=== PATIENT | female | born 1965 | race Caucasian/White ===

== ENCOUNTER 2024-12-26 13:50 | Outpatient (CLI) | payer OTHER, SELFPAY | END 2024-12-26 13:51 | disposition home or self-care (01) | PROVIDERS: Visit Provider Physician Assistant Medical | DX: N20.0 Calculus of kidney (principal); Z87.442 Personal history of urinary calculi | CPT/HCPCS: 74018; 74176 ==

== ENCOUNTER 2025-03-07 12:38 | Outpatient (CLI) | payer OTHER, SELFPAY ==
--- NOTE | 2025-03-07 12:48 | ECG_ITS ---
Test Date: 2025-03-07 13:08:21 Measurements Intervals [place] Rate: 98 P: 46 WI: 183 QRS: 5 QRSD: 82 T: 0 QT: 330 QTc: 423 Interpretive Statements SINUS RHYTHM LOW QRS VOLTAGE IN PRECORDIAL LEADS [QRS DEFLECTION < 1.0 mV IN CHEST LEADS] No previous ECG available for comparison Electronically Signed On 03-07-2025 15:07:02 CDT by Matheus Diggs M.D.
--- OUTSIDE RECORDS SUMMARY | 2025-03-07 12:48 | XMS_ITS | Clinical Summary ---
Author Organization [facility] Address [address] [place] [address] Care Team Providers Care Theatrical Agent Name Role Phone [address] Primary Care Prov ider Source Comments [facility],non-owned Affiliates and Associated Physician Practices is amultiple site organization consisting of ambulatory clinics and hospital sitesin [place], [place] and [place]. This disclosure is being madepursuant to the Care Everywhere program and may not contain all information available regarding this patient. Last updated 18.[facility] Allergies No known active allergies Medications * Be aware that medications may not be up to date on this document. Alwaysverify current medications with the patient. propranolol (INDERAL) 80 MG tabletIndicatio ns:Hypertension Take 80 mg by mouth every 8 hours. Indications: High Blood Pressure Active modafinil (PROVIGIL) 200 MG tablet Take 200 mg by mouth 2 times daily. Active butalbital-acet aminophen-caffe ine (FIORICET) 50-325-40 MG tabletIndicatio ns:Migraine Take 1 Tab by mouth every 4 hours as needed. Indications: Migraine Headache Active hydrocodone-beulah taminophen (NORCO) 5-325 MG tablet Take 1-2 Tabs by mouth every 4 hours as needed. 40 Tab 0 09/02/2012 Active ibuprofen (MOTRIN) 600 MG tablet Take 1 Tab by mouth every 6 hours. 120 Tab 0 09/02/2012 Active ciprofloxacin (CIPRO) 250 MG tablet Take 1 Tab by mouth every 12 hours. 20 Tab 0 09/02/2012 Active docusate sodium (COLACE) 100 MG capsule Take 1 Cap by mouth 2 times daily. 60 Cap 0 09/02/2012 Active Immunizations Immunization Administration Dates Next Due PNEUMOCOCCAL PPSV23 09/02/2012 Family History Medical History Relation Name Comments Hypertension Mother Cancer Other [place] Other Relation Name Status Comments Mother Other Social History Tobacco Use Types Packs/Day Years Used Date Smoking Tobacco: Every Day Cigarettes 0.5 30 Tobacco Cessation:Ready to Q uit: No; Counseling Given: Yes Alcohol Use Standard Drinks/Week Comments Yes 0 (1 standard drink = 0.6 oz pur e alcohol) occ Comments No Sex and Gender Information Value Date Recorded Sex Assigned at Not on file Legal Sex Female 2:04 PM [facility] Gender Identity Not on file Sexual Orientation Not on file Last Filed Vital Signs Vital Sign Reading Time Taken Comments Blood Pressure 114/62 09/02/2012 12:56 PM [facility] Pulse 89 09/02/2012 12:56 PM [facility] Temperature 36.9 C (98.4 F) 09/02/2012 12:56 PM [facility]ER Respiratory Rate 20 09/02/2012 12:56 PM [facility] Oxygen Saturation 97% 09/02/2012 12:56 PM [facility] Inhaled Oxygen Concentration - - Weight 83.9 kg (185 lb) 09/01/2012 7:20 AM WRIST [facility]ER Height 170.2 cm (5' 7 ) 09/01/2012 7:20 AM [facility]RI[facility]ER Body Mass Index 28.98 09/01/2012 7:20 AM WRIST LINER Plan of Treatment Health Maintenance Due Date Last Done Comments COLOGUARD (AGES 45-75) - COL ON CA SCREENING 1965 COLON MONITORING 1965 COLONOSCOPY - COLON CA SCREENING 1964 CT COLONOGRAPHY - COLON CA SCREENING 1965 Colorectal Cancer Screening 1965 FIT - COLON CA SCREENING 1964 FLEX SIG - COLON CA SCREENING 1965 LIPID TESTING 1965 MAMMOGRAM 1965 HIV SCREENING 01/05/1979 HEPATITIS C SCREENING 01/01/1982 DTAP/TDAP/TD VACCINES (1 - Tdap) 01/05/1983 PNEUMOCOCCAL VACCINE 50+ (2 of 2 - PCV) 01/05/2014 09/02/2012 ZOSTER VACCINE (1 of 2) 01/05/2014 COVID-19 VACCINE ( - 2023-2 5 season) 2024 DEPRESSION SCREENING 10/26/2024 INFLUENZA VACCINE (Season Ended) 2025 Respiratory Syncytial Virus (RSV) Vaccine Pt: or over 60 yrs (1 - 1-dose 75+ series) 01/05/2039 HEPATITIS B VACCINE Aged Out No longe r eligible based on patient's age to complete this topic HIB VACCINE Aged Out No longer eligi ble based on patient's age to complete this topic HPV VACCINE Aged Out No longer eligi ble based on patient's age to complete this topic MENINGOCOCCAL (Group B) VACC INE SHARED DECISION-MAKING Aged Out No longer eligibl e based on patient's age to complete this topic MENINGOCOCCAL GROUPS A/C/Y/W VACCINE Aged Out No longer eligible b ased on patient's age to complete this topic Advance Directives * FULL RESUSCITATION (Latest Code Status on File) Date Activated Date Inactivated Comments 09/01/2012 11:54 AM 09/02/2012 3:01 PM * FULL RESUSCITATION Date Activated Date Inactivated Comments 09/01/2012 8:35 AM 09/01/2012 11:54 AM Care Teams Theatrical Agent Relationship Specialty Start Date End Date [facility] [address], [place] [address] PCP - General 09/27/19
--- OUTSIDE RECORDS SUMMARY | 2025-03-07 12:48 | XMS_ITS ---
Author Organization [facility] Address [address] [place], [place] [id number] Care Team Providers Care Scallop Raker Name Role Phone MAHOGANY AGGARWAL Unavailable [phone] Andres Sharmaine Unavailable Unavailable Allergies No Known Allergies REASON FOR VISIT The patient has stalled on her improvement with her left foot. The nightsplint is not helping Medications Medication SIG (Take, Route, Frequency, Duration) Notes Start Date End Date Status Modafinil Active Fluticasone Propionate Active Clobetasol Propionate Active Omeprazole Active Propranolol HCl Acti ve Atorvastatin Calcium Active One A Day Immunity Defense Active methylPREDNISolone 4 MG as directed Orally one pack 024 Active Aspirin Active Fish Oil Active Calcium Carb-Cholecalciferol Active Cholecalciferol Acti ve Vital Signs Weight 210 lbs 08/23/2024 Weight-kg 95.26 kg 08/23/2024 Height 67 in 08/23/2024 Height-cm 170.18 cm 08/23/2024 BMI 32.89 kg/m2 08/23/2024 Encounters Encounter Location Date Provider Diagnosis [facility] [address] [place], [place] [id number] 08/23/2024 MAHOGANY AGGARWAL Plantar fascial fibromatosis M72.2 ; Calcaneal spur, left foot M77.32 and Left foot pain M79.672 Assessments Encounter Date Diagnosis (ICD Code) Assessment Notes Treatment Notes Treatment Clinical Notes Section Notes 08/23/2024 Plantar fascial fibromatosis (ICD-10 - M72.2) Plantar Fascitis: I discussed anti-inflammato ry treatment options and various means of pronation control with the patient. I educated the patient on icing and stretching, supportive shoegear, and the use of orthotic devices. Continue PowerStep inserts (Patient already has). Consult: Physical Therapy, eval and treat for plantar fascitis 08/23/2024 Calcaneal spur, left foot (ICD-10 - M77.32) 08/23/2024 Left foot pain (ICD-10 - M79.672) Plan Of Treatment Treatment Notes Assessment Notes Plantar fascial fibromatosis Plantar Fascitis: I discussed anti-inflammatory treatment options and various means of pronation control with the patient. I educated the patient on icing and stretching, supportive shoegear, and the use of orthotic devices. Continue PowerStep inserts (Patient already has). Consult: Physical Therapy, eval and treat for plantar fascitis Next Appt Details Follow Up: prn, Reason: See how PT helped. If no improvement, consider EPF Progress Notes * NORMANFANTASMAA KDOB:1965 (60 yo F)Acc No.[id number]:08/23/2024 Patient: Judith RUIZ CHALINO Ashkan Provider: Gigi Aggarwal DPM :1965 A ge:59 Y S ex:Female Date:08/23/2024 Address:[facility] [address] [place] [address] Subjective: * Chief Complaints: * 1 . The patient has stalled on her improvement with her left foot. The nightsplint is not helping. * HPI: H [facility] spl[facility] and steroid follow up. Patient had gotten a different night splint online that she states is easier to sleep in and has helped a little. Patient states she saw no change with the oral steroid. Patient states Powerstep inserts have been helping a little as well. , MA: LB. * ROS: G eneral / Constitutional: Patient denies c hills, fever, weakness, night sweats. M usculoskeletal: Patient denies c hildhood foot problems, weakness. P eripheral Vascular: Patient denies u lceration of feet, cold extremities. S kin: Patient denies u lcerations, discoloration. N eurologic: Patient denies b alance difficulty, confusion, difficulty speaking, dizziness. * Medical History: A cait reflux, Kidney stones, Hepatitis, Hemorrhoids, Eczema, Psoriasis, Hypersomnolence, Urinary incontinence. * Family History: M other: PRN - Mother: :: Hypertension,,known absent . * Social History: M igrated Social History: M igrated Social History: History of tobacco use : Current everyday tobacco user , Smoking Status : Current everyday tobacco user. * Medications: T aking One A Day Immunity Defense , Taking Fish Oil , Taking Clobetasol Propionate , Taking Fluticasone Propionate , Taking Propranolol HCl , Taking Omeprazole , Taking Modafinil , Taking Calcium Carb-Cholecalciferol , Taking Cholecalciferol , Taking Atorvastatin Calcium , Taking Aspirin , Taking methylPREDNISolone 4 MG Tablet Therapy Pack as directed Orally , Notes to Pharmacist: one pack, Medication List reviewed and reconciled with the patient * Allergies: N .K.D.A. Objective: * Vitals: S hoe Size: 9, Wt:210lbs, Wt-k.26 kg, Ht: 67 in, Ht-cm: 170.18 cm, BMI:32.89Index, Body Surface Area: 2.12. * Examination: C onstitutional: Constitutional T he patient is awake, alert, well developed, well groomed and well nourished.. D ermatologic: Skin findings: S kin is warm, dry, supple with no breaks in the skin.. V ascular: Dorsalis pedis pulse: 2 /4, bilateral. Posterior tibial pulse: 2 /4, bilaterally. Capillary refill: l ess than 3 seconds. Edema: N o edema, bilateral. N eurologic: Gross sensation G ross sensation is intact to light touch.. M usculoskeletal: Muscle Strength M uscle strength is 5/5 in regards to dorsiflexion, plantarflexion, inversion, and eversion in bilateral lower extremities.. Pain on palpation m edial band of the left plantar fascia near its attachment to the calcaneus. Assessment: * Assessment: 1. P lantar fascial fibromatosis - M72.2 (Primary) 2 . C alcaneal spur, left foot - M77.32 3 . L eft foot pain - M79.672 Plan: * Treatment: * Immunizations: Immunization record has been reviewed and updated. * Follow Up: p rn (Reason: See how PT helped. If no improvement, consider EPF) * Billing Information: * Visit Code: 44711 Office Visit, Est Pt., Level 3. * Procedure Codes: * Sign off status: Completed true * Provider: Gigi Aggarwal DPM Date: Generated for Mahamed hercules/Johnny/Bright on: 0 03/07/2025 12:48 PM CDT History and Physical Notes * HPI (History of Present Illness) Category Sub-Category Detail Notes Category Not es HPI Follow Up Visit Patient presents for follow-up visit for night splint and steroid follow up. Patient had gotten a different night splint online that she states is easier to sleep in and has helped a little. Patient states she saw no change with the oral steroid. Patient states Powerstep inserts have been helping a little as well. , MA: LB Examination Category Sub-Category Detail Notes Category Not es Dermatologic Skin findings: Skin is warm, dr y, supple with no breaks in the skin. Neurologic Gross sensation Gross sensation is intact to light touch. Vascular Dorsalis pedis pulse: 2/4, bilateral Edema: No edema, bilateral Capillary refill: less than 3 seconds Posterior tibial pulse: 2/4, bilaterally Musculoskeletal Muscle Strength Muscle strength is 5/5 in regards to dorsiflexion, plantarflexion, inversion, and eversion in bilateral lower extremities. Pain on palpation medial band of the l eft plantar fascia near its attachment to the calcaneus Constitutional Constitutional The patient is a wake, alert, well developed, well groomed and well nourished.
--- OUTSIDE RECORDS SUMMARY | 2025-03-07 12:48 | XMS_ITS | Clinical Summary ---
Author Organization [address] Address [address] [place] [id number] Care Team Providers Care Reservation Agent Name Role Phone Radha Fermin Primary Care Provider [phone] Allergies No known active allergies Medications aspirin 81 mg enteric coated tablet 1 Active atorvastatin (LIPITOR) 10 mg tablet 10 mg 7 Active Calcium 600 600 mg calcium (1,500 mg) tablet 1 Active cholecalciferol (VITAMIN D-3) 2000 unit tablet 1 Active clobetasoL (TEMOVATE) 0.05 % ointment 1 Active docosahexaenoic acid-epa 120-180 mg capsule Take 100 mg by mouth daily Active fluticasone propionate (FLONASE) 50 mcg/actuation nasal spray Daily 3 Active omeprazole (PriLOSEC) 20 mg capsule 1 Active propranolol LA (INDERAL LA) 80 mg 24 hr capsule 1 Active atorvastatin (LIPITOR) 20 mg tablet 2 Active benzonatate (TESSALON) 100 mg capsuleIndicatio ns:Cough Take 1 capsule (100 mg total) by mouth every 8 (eight) hours 21 capsule 2 Active Additional Information Patient not taking.Reported on 06/04/2023 lisinopriL (PRINIVIL,ZESTRI L) 10 mg tablet 3 Active modafiniL (PROVIGIL) 200 mg tabletIndication s:Idiopathic hypersomnia Take 2 tablets (400 mg total) by mouth every morning 60 tablet 5 5 Active Active Problems Problem Noted Date Diagnosed Date Idiopathic hypersomnia 05/27/2021 Assessment & Plan (06/09/2024 3:48 PM CDT): Due to continued symptoms, the patient will continue Provigil 400 mg in the morning. I have refilled the medication and will refill for 1 year Assessment & Plan (06/04/2023 3:39 PM CDT): The patient will continue with Provigil 400 mg daily. The patient states his medication works well. Assessment & Plan (05/29/2022 3:52 PM CDT): The patient will continue with Provigil 400 mg daily. The patient states his medication works well. I have reordered the medication and will refill it for up to 1 year. Assessment & Plan (05/27/2021 3:56 PM CDT): The patient continues to function well with Provigil 400 mg p.o. q.a.m.. She will follow-up here annually. Medical History Medical History Date Comments GERD (gastroesophageal reflux disease) Hypersomnia Social History Tobacco Use Types Packs/Day Years Used Date Smoking Tobacco: Every Day Cigarettes Smokeless Tobacco: Never Personal Safety Answer Date Recorded Getting School Help Needed Not on file 10/14 Comments No Sex and Gender Information Value Date Recorded Sex Assigned at Not on file Legal Sex Female 8:04 PM COLDFUSION Gender Identity Not on file Sexual Orientation Not on file Obstetrics History Last Filed Vital Signs Vital Sign Reading Time Taken Comments Blood Pressure 142/80 06/09/2024 3:35 PM CDT Pulse 106 06/09/2024 3:35 PM CDT Temperature 36.2 C (97.1 F) 06/09/2024 3:35 PM CDT Respiratory Rate 18 06/09/2024 3:35 PM CDT Oxygen Saturation 96% 06/09/2024 3:35 PM CDT Inhaled Oxygen Concentration - - Weight 92.1 kg (203 lb) 06/09/2024 3:35 PM CDT Height 170.2 cm (5' 7 ) 06/09/2024 3:35 PM CDT Body Mass Index 31.79 06/09/2024 3:35 PM CDT Plan of Treatment Health Maintenance Due Date Last Done Comments Cervical Cancer Screening 1965 Colon Cancer Screening-Colonoscopy 1965 Depression Screening 1965 Hepatitis C Screening 1965 Hepatitis B Screening 01/05/1982 Regular Well Visit/Exam 18-64 01/05/1982 Pneumococcal vaccine <65 (2 of 2 - PCV) 09/02/2013 09/02/2012 Breast Cancer Screening-Mammogram 11/07/2020 020, 11/07/2019 Covid-19 Vaccine (2023- 5 season) 2024 11/13/2021, 02/07/2021, 01/10/2021 Influenza Vaccine (Season Ended) 2025 10/04/2019, 08/24/2018, 07/30/2012, Additional history exists DTaP/Tdap/Td Vaccine (3 - Td or Tdap) 10/04/2029 10/04/2019, 02/16/2007, 01/26/1997 Zoster Vaccine Completed 05/30/2021, 03/29/2021 Procedures Procedure Name Priority Date/Time Associated Diagnosis Comments SCREENING MAMMOGRAM BILATERAL W THEO 11/07/2019 3:26 PM COLDFUSION from Last 3 Months or Most Recently Relevant to Health Maintenance Results * Screening Mammogram Bilateral W Theo (11/07/2019 3:26 PM COLDFUSION) Anatomical Region Laterality Modality Breast Bilateral Mammography 11/07/2019 3:49 PM COLDFUSION Narrative 11/11/2019 8:09 AM COLDFUSION Patient Name: CHALINO AUSTIN Dr: Yanique Walker CNP, D.O.B: 1965 Exam Date: 11/07/19 1526 Age: 54 Sex: Female MR#: [id number] Loc: RADIOLOGY REPORT Order #[id number] [facility] Marisol Bilat Screening 3D Signed - MG BILATERAL DIGITAL SCREENING MAMMOGRAM 3D/2D WITH MEDIOLATERAL OBLIQUE CRANIOCAUDAL: 11/07/2019 The study was acquired using full field digital technology and interpreted from soft copy. 2D digital mammographic views, as well as 3D digital tomosynthesis were performed in the CC and MLO projections. CLINICAL: Routine mammogram. Denies any problems today. No personal history of breast cancer. No family history of breast cancer. COMPARISONS: Comparison is made to exam dated: 02/16/2018 mammogram - [facility]. BREAST TISSUE: There are scattered areas of fibroglandular density. FINDINGS: There are benign appearing masses in the right breast. No significant masses, calcifications, or other findings are seen in either breast. There has been no significant interval change. IMPRESSION: BI-RAD 2 BENIGN There is no mammographic evidence of malignancy. A 1 year screening mammogram is recommended. The patient has been or will be contacted. We recommend annual screening mammography for women at average risk of breast cancer beginning at age 40, based on guidelines of the [employer] (ACR Practice Parameter for the Performance of Screening and Diagnostic Mammography) and [employer]nec[employer]. For women with an elevated risk of breast cancer, please refer to the ACR Practice Parameter for specific screening recommendations. The patient will be entered into a reminder system with a target due date of 1 year for her next screening exam. Electronically signed by: Julian Hastings rl/ebonie:11/11/2019 08:09:38 Horticulture Worker: Crys Sanchez (R)), [facility] letter sent: Normal Exam Reading location: BI-RADS: 2 Benign REPORT ELECTRONICALLY SIGNED IN OTHER VENDOR SYSTEM Resulting Agency Comment O Procedure Note Julian Toro MD - 11/11/2019 Patient Name: NORMANCHALINO Dr: Yanique Walker CNP, D.O.B: 1965 Exam Date: 11/07/19 1526 Age: 54 Sex: Female MR#: [id number] Loc: RADIOLOGY REPORT Order #[id number] [facility] Marisol Bilat Screening 3D Signed - MG BILATERAL DIGITAL SCREENING MAMMOGRAM 3D/2D WITH MEDIOLATERAL OBLIQUE CRANIOCAUDAL: 11/07/2019 The study was acquired using full field digital technology andinterpreted from soft copy. 2D digital mammographic views, as well as 3D digital tomosynthesis were performed in the CC and MLO projections. CLINICAL: Routine mammogram. Denies any problems today. No personalhistory of breast cancer. No family history of breast cancer. COMPARISONS: Comparison is made to exam dated: 02/16/2018 mammogram -[facility]. BREAST TISSUE: There are scattered areas of fibroglandular density. FINDINGS: There are benign appearing masses in the right breast. No significant masses, calcifications, or other findings are seen ineither breast. There has been no significant interval change. IMPRESSION: BI-RAD 2 BENIGN There is no mammographic evidence of malignancy. A 1 year screeningmammogram is recommended. The patient has been or will be contacted. We recommend annual screening mammography for women at average risk ofbreast cancer beginning at age 40, based on guidelines of the [employer] (ACR Practice Parameter for the Performance of Screening and Diagnostic Mammography) and [employer] Gynec[employer]. For women with an elevated risk of breast cancer, pleaserefer to the ACR Practice Parameter for specific screening recommendations. The patient will be entered into a reminder system with a target due dateof 1 year for her next screening exam. Electronically signed by: Julian Hastings rl/ebonie:11/11/2019 08:09:38 Horticulture Worker: Crys Kumar)(Krzysztof), [facility] letter sent: Normal Exam Reading location: BI-RADS: 2 Benign REPORT ELECTRONICALLY SIGNED IN OTHER VENDOR SYSTEM Yanique Walker NP IMG MAMMO PROCEDURES Final Result from Last 3 Months or Most Recently Relevant to Health Maintenance Insurance [facility] Care Teams Reservation Agent Relationship Specialty Start Date End Date Radha Fermin PA [address] [place], [place] [id number] PCP - General Physician Gantry Crane Operator 05/27/21
--- OUTSIDE RECORDS SUMMARY | 2025-03-07 12:48 | XMS_ITS | Encounter Summary ---
Author Organization [facility] Address [address] [place] [id number] Care Team Providers Care Senior Chemist Name Role Phone Radha Callaway Primary Care Provider [phone] None, Provider Primary Care Provider Harley Trhasher MD Primary Care Provider [phone] Encounter Details Date Type Department Care Team (Late st Contact Info) Description 11/15/2020 Prep for Procedure [employer] Pre-Admission Testing [facility] [place], [place] [id number] Giselle Maddox MD [address] [place] [address] [place] [phone] Social History Tobacco Use Types Packs/Day Years Used Date Smoking Tobacco: Every Day Cigarettes 0.5 40 Smokeless Tobacco: Never Alcohol Use Standard Drinks/Week Comments Not Currently 0 (1 standard drink = 0.6 oz pur e alcohol) 3 times year Comments No Sex and Gender Information Value Date Recorded Sex Assigned at Female 11/09/2024 10:20 AM NEUROLOGY TECHNICIAN Legal Sex Female 4:33 PM CDT Gender Identity Not on file Sexual Orientation Not on file COVID-19 Exposure Response Date Recorded In the last month, have you been in contact with someone who was confirmed or suspected to have Coronavirus / COVID-19? No / Unsure 11/15/2020 3:07 PM NEUROLOGY TECHNICIAN documented as of this encounter Plan of Treatment Not on file documented as of this encounter Results * PRE-SURGICAL/PRE-PROCEDURE CORONAVIRUS (COVID 19) (11/23/2020 10:30 AM NEUROLOGY TECHNICIAN) CORONAVIRUS SARS COV 2 PCR (RESP) NOT DETECTED NOT DETECTED 11/24/2020 4:31 PM NEUROLOGY TECHNICIAN [facility] Comment: A Not Detected (negative) test result for this test means that SARS- CoV-2 RNA was not present in the specimen above the limit of detection. A negative result does not rule out the possibility of COVID-19 and should not be used as the sole basis for treatment or patient management decisions. If COVID-19 is still suspected, based on exposure history together with other clinical findings, re-testing should be considered in consultation with public health authorities. Laboratory test results should always be considered in the context of clinical observations and epidemiological data in making a final diagnosis and patient management decisions. Please review the Fact Sheets and FDA authorized labeling available for health care providers and patients using the following websites: https://www.[employer]/home/Covid-19/HCP/NAAT/fact-sheet2 https://www.[employer]/home/Covid-19/Patients/NAAT/ fact-sheet2 This test has been authorized by the FDA under an Emergency Use Authorization (EUA) for use by authorized laboratories. Due to the current public health emergency, [facility] is receiving a high volume of samples from a wide variety of swabs and media for COVID-19 testing. In order to serve patients during this public health crisis, samples from appropriate clinical sources are being tested. Negative test results derived from specimens received in non-commercially manufactured viral collection and transport media, or in media and sample collection kits not yet authorized by FDA for COVID-19 testing should be cautiously evaluated and the patient potentially subjected to extra precautions such as additional clinical monitoring, including collection of an additional specimen. Methodology: Nucleic Acid Amplification Test (NAAT) includes RT-PCR or TMA Additional information about COVID-19 can be found at the [facility] website: www.[employer]/Covid19. Test performed at [facility] [place] [address] [place] [address] Director: RHYS GARCIA DO,MPH FIRST TEST NO 11/23/2020 12:43 PM NEUROLOGY TECHNICIAN [facility] EMPLOYED IN HEALTHCARE NO 11/23/2020 12:43 PM NEUROLOGY TECHNICIAN [facility] SYMPTOMATIC DEFINED BY CDC NO 11/23/2020 12:43 PM NEUROLOGY TECHNICIAN [facility] DATE OF SYMPTOM ONSET UNKNOWN 11/23/2020 1:15 PM NEUROLOGY TECHNICIAN [facility] HOSPITALIZATION STATUS NO 11/23/2020 12:43 PM NEUROLOGY TECHNICIAN [facility] PATIENT IN ICU NO 11/23/2020 12:43 PM NEUROLOGY TECHNICIAN [facility] RESIDENT OF [facility] NO 11/23/2020 12:43 PM NEUROLOGY TECHNICIAN [facility] NOT 11/23/2020 12:43 PM NEUROLOGY TECHNICIAN [facility] PATIENT'S RACE WHITE OR 11/23/2020 12:43 PM NEUROLOGY TECHNICIAN [facility] ETHNICITY NONHISPANIC 11/23/2020 12:43 PM NEUROLOGY TECHNICIAN [facility] SOURCE (QST) NASOPHARYNGEAL SWAB 11/23/2020 12:43 PM NEUROLOGY TECHNICIAN [facility] NASOPHARYNGEAL SWAB / Unknown 11/23/2020 10:30 AM NEUROLOGY TECHNICIAN us Giselle Maddox MD MICROBIOLOGY - GENERAL ORDERABLE S Final Result [facility] [address] [place] [address], [facility] [address] [place] [address], documented in this encounter Visit Diagnoses Diagnosis Preop examination- Primary Preoperative examination, unspecified documented in this encounter Additional Health Concerns Infection Onset Date Last Indicated Resolved Time COVID-19 Rule Out 11/23/2020 11/23/2020 11/24/2020 4:31 PM NEUROLOGY TECHNICIAN COVID-19 Rule Out 07/09/2021 07/09/2021 07/10/2021 11:47 AM CDT COVID-19 Rule Out 05/27/2023 05/27/2023 05/28/2023 7:24 AM CDT COVID-19 Rule Out 11/24/2023 11/24/2023 11/24/2023 6:55 PM NEUROLOGY TECHNICIAN COVID-19 Rule Out 01/17/2024 01/17/2024 01/17/2024 4:46 PM CDT COVID-19 Rule Out 02/16/2024 02/16/2024 02/16/2024 3:01 PM CDT COVID-19 Rule Out 11/09/2024 11/09/2024 11/09/2024 11:14 AM NEUROLOGY TECHNICIAN documented as of this encounter Care Teams Senior Chemist Relationship Specialty Start Date End Date Radha Callaway PA [facility] [address] [place] [address] PCP - General PHYSICIAN PEDIATRICIAN ACTIVE PRACTICE 11/15/20 05/26/23 None, ProviderMD PCP - General UNKNOWN PHYSICIAN SPECIALTY 05/27/23 02/15/24 Harley Campos MD [address] [phone] PCP - General FAMILY PRACTICE 02/16/24 documented as of this encounter
--- OUTSIDE RECORDS SUMMARY | 2025-03-07 12:48 | XMS_ITS | Encounter Summary ---
Author Organization [facility] Address [address] [place] [id number] Care Team Providers Care Bobbin Loose End Finder Name Role Phone Harley Campos MD Primary Care Provider [phone] Reason for Visit * Reason Comments Skin Problem Encounter Details Date Type Department Care Team (Late st Contact Info) Description 03/07/2025 4:56 AM CDT - 03/07/2025 7:[address] [facility] [place] [address] Laurel Schroeder MD [address] [place] [address] Rodri Beltran MD [address] [place] [address] Skin Problem Discharge Disposition: Home or Self Care (Routine Discharge) Social History Tobacco Use Types Packs/Day Years Used Date Smoking Tobacco: Every Day Cigarettes 0.5 40 Passive Smoke Exposure: Past Smokeless Tobacco: Never Alcohol Use Standard Drinks/Week Comments Yes 0 (1 standard drink = 0.6 oz pur e alcohol) 3 times year Comments No Sex and Gender Information Value Date Recorded Sex Assigned at Female 11/09/2024 10:20 AM [employer]TAIN [employer] Legal Sex Female 4:33 PM CDT Gender Identity Not on file Sexual Orientation Not on file documented as of this encounter Last Filed Vital Signs Vital Sign Reading Time Taken Comments Blood Pressure 140/82 03/07/2025 7:21 AM CDT Pulse 81 03/07/2025 7:21 AM CDT Temperature 36.4 C (97.6 F) 03/07/2025 4:53 AM CDT Respiratory Rate 16 03/07/2025 7:21 AM CDT Oxygen Saturation 97% 03/07/2025 7:21 AM CDT Inhaled Oxygen Concentration - - Weight 95 kg (209 lb 7 oz) 03/07/2025 4:53 AM CD T Height 170.2 cm (5' 7 ) 03/07/2025 4:53 AM CDT Body Mass Index 32.8 03/07/2025 4:53 AM CDT documented in this encounter Functional Status * Calculated C-SSRS Risk Score (Lifetime/Recent) Answer Date of Assessment Author Status No Risk Indicated 03/07/2025 4:54 AM CDT Lul Greco RN Active * [place] Suicide Severity Rating Scale (Screener/Recent Self-Report) Question Answer Date of Assessment Author Status 1. Wish to be (Past 1 Month) No 03/07/2025 4:54 AM CDT Lul Greco RN Active 2. Non-Specific Active Suicidal Thoughts (Past 1 Month) No 03/07/2025 4:54 AM CDT Lul Greco RN Active 6. Suicidal Behavior (Lifetime) No 03/07/2025 4:54 AM CDT Lul Greco RN Activ e documented as of this encounter Discharge Instructions * Discharge Instructions* Rodri Beltran MD - 03/07/2025 7:00 AM CDT Continue all present medication as prescribed. Take prednisone Pepcid/famotidine as prescribed. Continue Zyrtec as prescribed. Do not take Macrobid/nitrofurantoin you have allergic reaction to it. Fluids. Diet and activity as tolerated. Follow-up with your primary care provider at [place] in next 3 to 5 days. Call their office today for appointment. Return to Emergency Department forany problems or concerns. documented in this encounter Medications at Time of Discharge famotidine (PEPCID) 40 MG tablet Take 1 tablet (40 mg total) by mouth daily for 15 days. 15 tablet 03/07/2025 predniSONE (DELTASONE) 20 MG tablet Take 2 tablets a day by mouth for 5 days then take 1 tab a day by mouth for 5 days 15 tablet 03/07/2025 aspirin EC (ECOTRIN) 81 MG tablet Take 1 tablet (81 mg total) by mouth daily. atorvastatin 20 MG tablet Take 1 tablet (20 mg total) by mouth daily. cetirizine (ZYRTEC) 10 MG tablet Take 1 tablet (10 mg total) by mouth daily. 30 tablet 03/01/2025 clobetasol 0.05 % Cream Apply 1 each topically 2 (two) times daily. estradiol (ESTRACE) 0.1 MG/GM vaginal cream Place 1 g vaginally. 02/06/2025 fish oil 1000 MG Cap capsule Take 100 mg by mouth daily. fluticasone furoate 27.5 MCG/SPRAY Suspension 1 spray by Each Nostril route. GEMTESA 75 MG tablet Take 1 tablet (75 mg total) by mouth daily. 08/04/2024 modafinil 200 MG tablet Take 1 tablet (200 mg total) by mouth daily. 08/02/2020 omeprazole (PRILOSEC) 20 MG capsule 03/19/2023 propranolol LA 80 MG 24 hr capsule Take 1 capsule (80 mg total) by mouth daily. trimethoprim (TRIMPEX) 100 MG tablet Take 1 tablet (100 mg total) by mouth. 08/08/2024 vitamin D3, cholecalciferol, 10 MCG (400 UNIT) tablet Take 1 tablet (400 Units total) by mouth daily. 2 tabs daily documented as of this encounter ED Notes * Rodri Beltran MD - 03/07/2025 7:00 AM CDT [facility] Emergency Department Assumed Care Note Patient signed out to me by Dr Schroeder. Briefly, Patricia Garcia is a 60-year-old female is being evaluated for rash likely secondary to Macrobid which she finished yesterday Vitals: 03/07/25 0453 BP: (!) 144/102 Pulse: 82 Resp: 18 Temp: 97.6 Â°F (36.4 Â°C) SpO2: 97% Thus far, studies reveal: No laboratory work obtained Pending studies include: No pending studies Plan from sign out is: Reevaluate disposition Progress notes: I personally saw examined this patient. Agree with Dr. Schroeder's assessment and plan. Patient is resting on stretcher no acute distress. Patient states rash is improved. She recently completed Macrobid for UTI. She noted a rash and swelling to her hands and arms and trunk.. She was given IV medications Emergency Department and feels better. Patient has no shortness of breath no wheezing no fevers no chills no respiratory distress ED Course as of 03/07/25 07ThuMarch 07, 2025 07 Patient initially had [facility]. She requested prescription to be sent to [facility] therefore electronic prescriptions were changed from [facility] to [facility]. [CA] ED Course User Index [CA] Rodri Beltran MD Clinical impression: SNOMED CT(R) 1. Rash ERUPTION Medical Decision Making Problems Addressed: Rash: acute illness or injury Details: IV Solu-Medrol. Prescriptions for Pepcid prednisone Amount and/or Complexity of Data Reviewed Labs: ordered. Risk OTC drugs. Prescription drug management. Parenteral controlled substances. Disposition: Discharge Voice-recognition software used. Rodri Beltran MD 03/07/2025 Rodri Beltran MD 03/07/25 07 * Skye Gonsalez RN - 03/07/2025 6:20 AM CDT Patient states she is feeling better and less itchy. Her arms also seem to be slightly less red. * Skylar Montero RN - 03/07/2025 4:56 AM CDT Bed: H35 Expected date: Expected time: Means of arrival: Comments: Jose * Lul Greco RN - 03/07/2025 4:51 AM CDT To ER c/o bright red rash that started this am after waking up, states she was in urgent care Thursday and started taking macrobid for a uti and zrytec, denies sob and wheezing at this time. Pt reports having a kidney stone as well. documented in this encounter Plan of Treatment Not on file documented as of this encounter Procedures Procedure Name Priority Date/Time Associated Diagnosis Comments COMPREHENSIVE METABOLIC PANEL STAT 03/07/2025 5:20 AM CDT CBC W/DIFF AUTOMATED STAT 03/07/2025 5:20 AM CDT documented in this encounter Results * (ABNORMAL) COMPREHENSIVE METABOLIC PANEL (03/07/2025 5:20 AM CDT) GLUCOSE 110(H) 70 - 99 MG/DL 03/07/2025 6:13 AM CDT [facility] BUN 19(H) 7 - 18 MG/DL 03/07/2025 6:13 AM CDT [facility] CREATININE S/P/B 0.62 0.55 - 1.02 MG/DL 03/07/2025 6:13 AM CDT [facility] SODIUM S/P/B 138 136 - 145 MMOL/L 03/07/2025 6:13 AM CDT [facility] POTASSIUM S/P/B 3.8 3.5 - 5.1 MMOL/L 03/07/2025 6:13 AM CDT [facility] CHLORIDE S/P/B 110 97 - 115 MMOL/L 03/07/2025 6:13 AM CDT [facility] CO2 21.4 21 - 32 MMOL/L 03/07/2025 6:13 AM CDT [facility] CALCIUM S/P/B 9.9 8.5 - 10.1 MG/DL 03/07/2025 6:13 AM [facility] BILIRUBIN TOTAL S/P/B 0.4 0.2 - 1.2 MG/DL 03/07/2025 6:13 AM [facility] Comment: THIS ASSAY IS NOT RECOMMENDED FOR PATIENTS UNDERGOING TREATMENT WITH ELTROMBOPAG DUE TO THE POTENTIAL FOR FALSELY ELEVATED RESULTS. TOTAL PROTEIN S/P/B 7.5 6.4 - 8.2 G/DL 03/07/2025 6:13 AM [facility] ALBUMIN S/P/B 3.6 3.4 - 5.0 G/DL 03/07/2025 6:13 AM [facility] AST 26 15 - 37 U/L 03/07/2025 6:13 AM [facility] ALT 39 14 - 55 U/L 03/07/2025 6:13 AM [facility] ALKALINE PHOSPHATASE S/P/B 95 50 - 136 U/L 03/07/2025 6:13 AM [facility] ANION GAP 6.6 2 - 10 MMOL/L 03/07/2025 6:13 AM [facility] BUN CREATININE RATIO 30.8(H) 6 - 26 03/07/2025 6:13 AM [facility] A/G RATIO 0.9(L) 1.0 - 2.0 RATIO 03/07/2025 6:13 AM [facility] GFR ESTIMATE >90 >90 ML/MIN/1.7 3 M2 03/07/2025 6:13 AM [facility] Comment: NOTE: eGFR is not calculated for patients <18 years of age or gender unknown. This is an estimated GFR calculation using the new CKD EPI creatinine equation without race and so does not require a correction factor for race. This estimated GFR should not be used for calculating drug doses. 03/07/2025 5:20 AM CDT us Laurel Schroeder MD LABORATORY Final Resul t [facility] [address] [place] [address], [place] [phone] * (ABNORMAL) CBC W/DIFF AUTOMATED (03/07/2025 5:20 AM CDT) WBC 5.55 4.5 - 11.0 x10'3/uL 03/07/2025 5:52 AM CDT [facility] RBC 5.10 4.20 - 5.40 x10'6/uL 03/07/2025 5:52 AM CDT [facility] HGB 15.1 12.0 - 16.0 G/DL 03/07/2025 5:52 AM CDT [facility] HCT 46.3 38.0 - 48.0 % 03/07/2025 5:52 AM CDT [facility] MCV 90.8 81.0 - 99.0 FL 03/07/2025 5:52 AM CDT [facility] MCH 29.6 27.0 - 31.0 PG 03/07/2025 5:52 AM CDT [facility] MCHC 32.6 32.0 - 36.0 G/DL 03/07/2025 5:52 AM CDT [facility] RDW 13.0 11.5 - 14.5 % 03/07/2025 5:52 AM CDT [facility] PLT 233 130 - 400 x10'3/uL 03/07/2025 5:52 AM CDT [facility] MPV 11.1 9.3 - 12.2 FL 03/07/2025 5:52 AM CDT [facility] DIFFERENTIAL TYPE AUTOMATED DIFFERENTIAL 03/07/2025 5:52 AM CDT [facility] NEUTROPHILS % 63.2 % 03/07/2025 5:52 AM CDT [facility] LYMPHOCYTES % 31.7 % 03/07/2025 5:52 AM CDT [facility] MONOCYTES % 3.6 % 03/07/2025 5:52 AM CDT [facility] EOSINOPHILS 0.9 % 03/07/2025 5:52 AM CDT [facility] BASOPHILS 0.2 % 03/07/2025 5:52 AM CDT [facility] IMMATURE GRANS % 0.4 % 03/07/20 5:52 AM CDT [facility] ABS. NEUTROPHILS 3.51 1.80 - 7.70 x10'3/uL 03/07/2025 5:52 AM CDT [facility] ABS. LYMPHOCYTES 1.76 1.00 - 4.80 x10'3/uL 03/07/2025 5:52 AM CDT [facility] ABS. MONOCYTES 0.20(L) 0.24 - 0.86 x10'3/uL 03/07/2025 5:52 AM CDT [facility] ABS. EOSINOPHILS 0.05 0.04 - 0.36 x10'3/uL 03/07/2025 5:52 AM CDT [facility] ABS. BASOPHILS 0.01 0.01 - 0.08 x10'3/uL 03/07/2025 5:52 AM T [facility] ABS. IMMATURE GRANULOCYTES 0.02 0.00 - 0.49 x10'3/uL 03/07/2025 5:52 AM T [facility] 03/07/2025 5:20 AM CDT Laurel Schroeder MD LABORATORY Final Resul t [facility] [address] [place] [address], [place] [phone] documented in this encounter Visit Diagnoses Diagnosis Rash- Primary Rash and other nonspecific skin eruption documented in this encounter Administered Medications Inactive Administered Medications - up to 3 most recent administrations Medication Order MAR Action Action Date Dose Rate Site dexamethasone PF (DECADRON) injection 10 mg 10 mg, Intravenous, Once, 1 dose, On Thu03/07/25 at 0515, Administer slowly over 1-4 minutes. Given 03/07/2025 5:27 AM CDT 10 mg diphenhydrAMINE (BENADRYL) injection 25 mg 25 mg, Intravenous, Once, 1 dose, On Thu03/07/25 at 0515, For IV administration, give no faster than 25 mg/min. Given 03/07/2025 5:27 AM CDT 25 mg famotidine (PF) (PEPCID) injection 20 mg 20 mg, Intravenous, Once, 1 dose, On Thu03/07/25 at 0515, Dilute 2 ml (20 mg) with NS (or other compatible solution) to a total of 5-10 ml and give over at least 2 minutes. May also administer undiluted. IV Push over 2 minutes Given 03/07/2025 5:27 AM CDT 20 mg documented in this encounter Active and Recently Administered Medications Times are shown in CDT. Scheduled Medication Order 03/05/2025 03/06/2025 03/07/2025 dexamethasone PF (DECADRON) injection 10 mg (COMPLETED) 10 mg, Intravenous, Once, 1 dose, On Thu03/07/25 at 0515, Administer slowly over 1-4 minutes. 526 (Given - Provid er: Skye Gonsalez RN) diphenhydrAMINE (BENADRYL) injection 25 mg (COMPLETED) 25 mg, Intravenous, Once, 1 dose, On Thu03/07/25 at 0515, For IV administration, give no faster than 25 mg/min. 526 (Given - Provid er: Skye R Sunshine, RN) famotidine (PF) (PEPCID) injection 20 mg (COMPLETED) 20 mg, Intravenous, Once, 1 dose, On Thu03/07/25 at 0515, Dilute 2 ml (20 mg) with NS (or other compatible solution) to a total of 5-10 ml and give over at least 2 minutes. May also administer undiluted. IV Push over 2 minutes 0527 (Given - Provid er: Skye Gonsalez RN) documented in this encounter Care Teams Bobbin Loose End Finder Relationship Specialty Start Date End Date Harley Campos MD [address] [phone] PCP - General FAMILY PRACTICE 02/16/24 documented as of this encounter
--- OUTSIDE RECORDS SUMMARY | 2025-03-07 12:48 | XMS_ITS | Clinical Summary ---
Author Organization [facility] Address [address] [facility] Attn: Epic Prelude ADT DAPHNE OREILLY [id number] Care Team Providers Care Hotbed Operator Name Role Phone Unavailable Primary Care Provider Unavailabl e Allergies No known active allergies Medications clobetasoL (TEMOVATE) 0.05 % Cream APPLY TO RASH ON BODY TWO TIMES A DAY NEEDED 60 Gram 9 03/20/2022 7:54 PM CDT 1 Active benzonatate (TESSALON) 100 mg capsule Take 1 capsule (100 mg) by mouth every 8 (eight) hours 21 Capsule 09/03/2022 12:58 PM FLASH RANGING CREWMEMBER 2 Active modafiniL (PROVIGIL) 200 mg Tablet Take 2 tablets (400 mg total) by mouth every morning 60 Tablet 5 04/20/2023 10:40 AM CDT 3 Active estradioL (Estrace) 0.01% (0.1 mg/g) vaginal cream Insert 1 gram vaginally twice weekly 42.5 Gram 4 09/21/2023 12:43 PM FLASH RANGING CREWMEMBER 3 Active oxyBUTYnin (DITROPAN) 5 mg tablet Take 1 Tablet (5 mg) by mouth 2 times daily. 60 Tablet 11 09/21/2023 12:43 PM FLASH RANGING CREWMEMBER 3 Active ondansetron (ZOFRAN ODT) 4 mg Tablet, Rapid Dissolve Dissolve 1 tablet (4 mg total) on the tongue every 8 (eight) hours as needed. 20 Tablet 02/17/2024 8:57 AM CDT 4 Active sulfamethoxazo le-trimethopri m (BACTRIM DS) 800-160 mg tablet Take 1 Tablet by mouth 2 times daily. 14 Tablet 06/29/2024 4:21 PM CDT 4 Active methylPREDNISo lone (MEDROL DOSPACK) 4 mg Tablets, Dose Pack Take by mouth as directed on package 21 Each 08/02/2024 4:12 PM CDT 4 Active cefdinir (OMNICEF) 300 mg capsule Take 1 (one) capsule by mouth every twelve hours for 7 days 14 Capsule 08/04/2024 4:44 PM CDT 4 Active vibegron (Gemtesa) 75 mg Tablet Take 1 Tablet by mouth daily. 90 Tablet 1 11/11/2024 3:22 PM FLASH RANGING CREWMEMBER 4 Active trimethoprim (TRIMPEX) 100 mg tablet Take 1 Tablet (100 mg) by mouth at bedtime. 90 Tablet 08/12/2024 3:18 PM CDT 4 Active modafiniL (PROVIGIL) 200 mg Tablet Take 2 tablets (400 mg total) by mouth every morning 60 Tablet 5 02/06/2025 4:07 PM CDT 5 Active trimethoprim (TRIMPEX) 100 mg tablet Take 1 Tablet (100 mg) by mouth at bedtime. 90 Tablet 5 Active estradioL (ESTRACE) 0.01% (0.1 mg/g) vaginal cream Insert 1 Gram vaginally two nights per week as directed 42.5 Gram 2 02/06/2025 4:07 PM CDT 5 Active sulfamethoxazo le-trimethopri m (Bactrim DS) 800-160 mg tablet Take 1 Tablet by mouth 2 times daily. 6 Tablet 02/09/2025 3:20 PM CDT 5 Active cetirizine (ZyrTEC) 10 mg tablet Take 1 tablet (10 mg total) by mouth daily. 30 Tablet 03/01/2025 3:46 PM CDT 5 Active famotidine (PEPCID) 40 mg tablet Take 1 tablet (40 mg total) by mouth daily for 15 days. 15 Tablet 03/07/2025 8:49 AM CDT 5 03/22/20 25 Active predniSONE (DELTASONE) 20 mg tablet Take 2 tablets by mouth daily for 5 days, then take 1 tablet by mouth daily for 5 days 15 Tablet 03/07/2025 8:49 AM CDT 5 Active trimethoprim (TRIMPEX) 100 mg tablet Take 1 Tablet (100 mg) by mouth at bedtime. 90 Tablet 12/13/2024 2:15 PM FLASH RANGING CREWMEMBER 5 02/07/20 25 Discontinue d(Reorder) nitrofurantoin (MACROBID) 100 mg capsule Take 1 capsule (100 mg total) by mouth 2 (two) times daily for 5 days. 10 Capsule 03/01/2025 3:46 PM CDT 5 03/06/20 25 Encounters Date Type Department Care Team Description 01/03/2025 External Device Data [facility] Provider, Abstract 01/03/2025 External Device Data [facility] Provider, Abstract from Last 3 Months Social History Tobacco Use Types Packs/Day Years Used Date Smoking Tobacco: Never Assessed Comments Unknown Sex and Gender Information Value Date Recorded Sex Assigned at Not on file Legal Sex Female 3:24 PM CDT Gender Identity Not on file Sexual Orientation Not on file Plan of Treatment Health Maintenance Due Date Last Done Comments DTAP/TDAP/TD VACCINES (1 - Tdap) 01/05/1983 HPV/Cotest (21-29) 01/05/1985 CERVICAL CANCER SCREENING 01/05/1994 HPV/Cotest (30-65) 01/05/1994 PAP SMEAR 01/05/1994 BREAST CANCER SCREENING 2004 COLORECTAL SCREENING 01/05/2009 Colorectal Cancer Screening 01/05/2009 FIT-DNA Q 3 years 01/05/2009 FIT/FOBT Q 1 year 01/05/2009 Flex Sig/CT Colonography Q 5 years 01/05/2009 ZOSTER VACCINE (1 of 2) 01/05/2014 INFLUENZA VACCINE (#1) 2024 RSV VACCINE (60+ or ) (1 - 1-dose 75+ series) 01/05/2039 Insurance RX [employer]
--- OUTSIDE RECORDS SUMMARY | 2025-03-07 12:48 | XMS_ITS | Patient Health Record ---
Author Organization [facility] Address [address] [place], [place] [id number] Care Team Providers Care Production Engine Repairer Name Role Phone MAHOGANY AGGARWAL Unavailable [phone] Sharmaine Campos Unavailable Unavailable Allergies No Known Allergies Reason For Referral Reason REFERRAL ( E STABLISHED VISITS ) Diagnosis 1 Plantar fascial fibr omatosis (M72.2) Referred Organization [facility] Referred Provider MAHOGANY AGGARWAL Referred Address [address],[place], [id number], Referred Provider Specialty Podiatry Referral Priority Routine Medications Medication SIG (Take, Route, Frequency, Duration) Notes Start Date End Date Status Calcium Carb-Cholecalciferol Active Modafinil Active Atorvastatin Calcium Active Cholecalciferol Acti ve Fluticasone Propionate Active Clobetasol Propionate Active Omeprazole Active Propranolol HCl Acti ve One A Day Immunity Defense Active methylPREDNISolone 4 MG as directed Orally one pack 024 Active Aspirin Active Fish Oil Active Immunizations Vaccine Route Administration Date Status Comme nts Pneumococcal conjugate PCV 13 Unknown 01/10/2025 Admini stered Influenza, high dose seasonal Unknown 01/10/2025 Admini stered Vital Signs Height-cm 170.18 cm 08/23/2024 Weight-kg 95.26 kg 08/23/2024 Height 67 in 08/23/2024 Weight 210 lbs 08/23/2024 BMI 32.89 kg/m2 08/23/2024 Encounters Encounter Location Date Provider Diagnosis [facility] [place] [address] [facility] [address] [place], [place] [id number] 04/27/2024 MAHOGANY SNOOK Plantar fascial fibromatosis M72.2 ; Calcaneal spur, left foot M77.32 and Left foot pain M79.672 [facility] [address] [place], [place] [id number] 05/18/2024 MAHOGANY SNOOK Plantar fascial fibromatosis M72.2 ; Calcaneal spur, left foot M77.32 and Left foot pain M79.672 [facility] [address] [place], [place] [id number] 06/08/2024 MAHOGANY SNOOK Plantar fascial fibromatosis M72.2 ; Calcaneal spur, left foot M77.32 and Left foot pain M79.672 [facility] [address] [place], [place] [id number] 08/02/2024 MAHOGANY SNOOK Plantar fascial fibromatosis M72.2 ; Calcaneal spur, left foot M77.32 and Left foot pain M79.672 [facility] [address] [place], [place] [id number] 08/23/2024 MAHOGANY SNOOK Plantar fascial fibromatosis M72.2 ; Calcaneal spur, left foot M77.32 and Left foot pain M79.672 [facility] [address] [facility] [address] [place], [place] [id number] 08/29/2024 MAHOGANY SNOOK Assessments Encounter Date Diagnosis (ICD Code) Assessment Notes Treatment Notes Treatment Clinical Notes Section Notes 04/27/2024 Plantar fascial fibromatosis (ICD-10 - M72.2) Plantar Fascitis: I discussed anti-inflammato ry treatment options and various means of pronation control with the patient. I educated the patient on icing and stretching, supportive shoegear, and the use of orthotic devices. Continue PowerStep inserts (Patient already has). Kenalog Injection: Following skin prep, a total of 3 ccs of a 1-1-1 mix of 0.5% marcaine plain, 1% lidocaine plain, and Kenalog was injected to the left heel 04/27/2024 Calcaneal spur, left foot (ICD-10 - M77.32) 05/18/2024 Plantar fascial fibromatosis (ICD-10 - M72.2) Plantar Fascitis: I discussed anti-inflammato ry treatment options and various means of pronation control with the patient. I educated the patient on icing and stretching, supportive shoegear, and the use of orthotic devices. Continue PowerStep inserts (Patient already has). Kenalog Injection: Following skin prep, a total of 3 ccs of a 1-1-1 mix of 0.5% marcaine plain, 1% lidocaine plain, and Kenalog was injected to the left heel 05/18/2024 Calcaneal spur, left foot (ICD-10 - M77.32) 06/08/2024 Plantar fascial fibromatosis (ICD-10 - M72.2) Plantar Fascitis: I discussed anti-inflammato ry treatment options and various means of pronation control with the patient. I educated the patient on icing and stretching, supportive shoegear, and the use of orthotic devices. Continue PowerStep inserts (Patient already has). Kenalog Injection: Following skin prep, a total of 3 ccs of a 1-1-1 mix of 0.5% marcaine plain, 1% lidocaine plain, and Kenalog was injected to the left heel 06/08/2024 Calcaneal spur, left foot (ICD-10 - M77.32) 08/02/2024 Plantar fascial fibromatosis (ICD-10 - M72.2) Plantar Fascitis: I discussed anti-inflammato ry treatment options and various means of pronation control with the patient. I educated the patient on icing and stretching, supportive shoegear, and the use of orthotic devices. Continue PowerStep inserts (Patient already has). Night Splint: A night splint was fitted and dispensed. The patient was instructed on its use. 08/02/2024 Calcaneal spur, left foot (ICD-10 - M77.32) 08/23/2024 Plantar fascial fibromatosis (ICD-10 - M72.2) [...] 08/23/2024 Left foot pain (ICD-10 - M79.672) 08/02/2024 Left foot pain (ICD-10 - M79.672) 06/08/2024 Left foot pain (ICD-10 - M79.672) 05/18/2024 Left foot pain (ICD-10 - M79.672) 04/27/2024 Left foot pain (ICD-10 - M79.672) Plan Of Treatment No Information Insurance Providers Payer Name Payer Address Payer Phone Subscriber Number Group Number Insured Name Patient Relationship to Insured Coverage Start Date Coverage End Date [facility] [address] [place] [phone] [id number] SHARMAINE [place] Spouse - patient is the spouse of the insured Medical (General) History Medical History History ICD Code acid reflux kidney stones hepatitis hemorrhoids eczema psoriasis hypersomnolence urinary incontinence
--- OUTSIDE RECORDS SUMMARY | 2025-03-07 12:48 | XMS_ITS | Encounter Summary ---
Author Organization [facility] Address [address] [place] [address] Care Team Providers Care Veneer Drier Tailer Name Role Phone Harley Campos MD Primary Care Provider [phone]- [phone] Encounter Details Date Type Department Care Team (Late st Contact Info) Description 03/04/2025 Results Follow-Up [facility] Care [address] [place] [address] Sandra Purdy MD [address], [place] [id number] CULTURE URINE Social History Tobacco Use Types Packs/Day Years Used Date Smoking Tobacco: Every Day Cigarettes 0.5 40 Passive Smoke Exposure: Past Smokeless Tobacco: Never Alcohol Use Standard Drinks/Week Comments Yes 0 (1 standard drink = 0.6 oz pur e alcohol) 3 times year Comments No Sex and Gender Information Value Date Recorded Sex Assigned at Female 11/09/2024 10:20 AM COLOR COATER Legal Sex Female 4:33 PM CDT Gender Identity Not on file Sexual Orientation Not on file documented as of this encounter Functional Status * Calculated C-SSRS Risk Score (Lifetime/Recent) Answer Date of Assessment Author Status No Risk Indicated 03/07/2025 4:54 AM MARYT Lul Greco RN Active * [place] Suicide Severity Rating Scale (Screener/Recent Self-Report) Question Answer Date of Assessment Author Status 1. Wish to be (Past 1 Month) No 03/07/2025 4:54 AM Lul Bear RN Active 2. Non-Specific Active Suicidal Thoughts (Past 1 Month) No 03/07/2025 4:54 AM MARYT Lul Greco RN Active 6. Suicidal Behavior (Lifetime) No 03/07/2025 4:54 AM MARYT Lul Greco RN Active documented as of this encounter Plan of Treatment Not on file documented as of this encounter Visit Diagnoses Not on filedocumented in this encounter Care Teams Veneer Drier Tailer Relationship Specialty Start Date End Date Harley Campos MD [address] [address] PCP - General FAMILY PRACTICE 02/16/24 documented as of this encounter
--- OUTSIDE RECORDS SUMMARY | 2025-03-07 12:48 | XMS_ITS ---
Author Organization [facility] Address [address] [place], [place] [id number] Care Team Providers Care Yard Jockey Name Role Phone ANDREWNYA LutherIC Unavailable [phone] Sharmaine Campos Unavailable Unavailable Allergies No Known Allergies REASON FOR VISIT The patient was doing well after her last coritsone injection but unfortunately the pain has come back and it is severe. It is worse with initial step in the morning and then starts to work itself out throughout the day Medications Medication SIG (Take, Route, Frequency, Duration) Notes Start Date End Date Status methylPREDNISolone 4 MG as directed Orally one pack 024 Active Cholecalciferol Acti ve Calcium Carb-Cholecalciferol Active Aspirin Active Atorvastatin Calcium Active Fluticasone Propionate Active Clobetasol Propionate Active Modafinil Active Omeprazole Active Propranolol HCl Acti ve Fish Oil Active One A Day Immunity Defense Active Vital Signs Weight 210 lbs 08/02/2024 Weight-kg 95.26 kg 08/02/2024 Height 67 in 08/02/2024 Height-cm 170.18 cm 08/02/2024 BMI 32.89 kg/m2 08/02/2024 Encounters Encounter Location Date Provider Diagnosis [facility] [address] [facility] [address] [place], [place] [id number] 08/02/2024 MAHOGANY AGGARWAL Plantar fascial fibromatosis M72.2 ; Calcaneal spur, left foot M77.32 and Left foot pain M79.672 Assessments Encounter Date Diagnosis (ICD Code) Assessment Notes Treatment Notes Treatment Clinical Notes Section Notes 08/02/2024 Plantar fascial fibromatosis (ICD-10 - M72.2) [...] spur, left foot (ICD-10 - M77.32) 08/02/2024 Left foot pain (ICD-10 - M79.672) Plan Of Treatment Medication Medication Name Sig Start Date Stop Date Notes methylPREDNISolone 4 MG as directed Orally 08/02/2024 one pack Treatment Notes Assessment Notes Plantar fascial fibromatosis Plantar Fascitis: I discussed anti-inflammatory treatment options and various means of pronation control with the patient. I educated the patient on icing and stretching, supportive shoegear, and the use of orthotic devices. Continue PowerStep inserts (Patient already has). Night Splint: A night splint was fitted and dispensed. The patient was instructed on its use. Next Appt Details Follow Up: 3 Weeks, Reason: See how night splint and oral steroid helped. If pain persists, consider Physical Therapy Progress Notes * FANTASMA AUSTINA KDOB:1965 (60 yo F)Acc No.[id number]:08/02/2024 Patient: CHALINO RIVER Provider: Gigi Aggarwal DPM :1965 A ge:59 Y S ex:Female Date:08/02/2024 Address:[facility] [address] [place] [address] Subjective: * Chief Complaints: * 1 . The patient was doing well after her last coritsone injection but unfortunately the pain has come back and it is severe. It is worse with initial step in the morning and then starts to work itself out throughout the day. * HPI: H PI: New Complaint E stablished patient presents with a new complaint., Patient complains of an issue to left heel pain. Patient states her pain returned . Patient received an injection at her previous visit a few months ago that she believed resolved her pain, but pain has returned, and it is worse than before., MA: LB. * ROS: G eneral / [...] Taking Atorvastatin Calcium , Taking Aspirin , Medication List reviewed and reconciled with the [...] record has been reviewed and updated. * Procedure Codes: L 4397 STATIC/DYNAMIC AFO MIN ABM PREFAB, Modifiers: LT * Follow Up: 3 Weeks (Reason: See how night splint and oral steroid helped. If pain persists, consider Physical Therapy) * Billing Information: * Visit Code: 54811 Office Visit, Est Pt., Level 3. * Procedure Codes: L4397 STATIC/DYNAMIC AFO MIN ABM PREFAB. Modifiers: LT * Sign off status: Completed true * Provider: Gigi Aggarwal DPM Date: Generated for Mahamed hercules/Johnny/Bright on: 0 03/07/2025 12:48 PM CDT History and Physical Notes * HPI (History of Present Illness) Category Sub-Category Detail Notes Category Not es HPI New Complaint Established jane ent presents with a new complaint., Patient complains of an issue to left heel pain. Patient states her pain returned . Patient received an injection at her previous visit a few months ago that she believed resolved her pain, but pain has returned, and it is worse than before., MA: LB Examination Category Sub-Category Detail Notes [...]
--- OUTSIDE RECORDS SUMMARY | 2025-03-07 12:48 | XMS_ITS | Clinical Summary ---
Author Organization [facility] Address [facility] [place] [address] Care Team Providers Care Epic Beacon Analyst Name Role Phone Harley Campos MD Primary Care Provider +1- [phone] Allergies No known active allergies Medications modafinil 200 MG tablet Take 1 tablet (200 mg total) by mouth daily. 08/02/20 20 Active aspirin EC (ECOTRIN) 81 MG tablet Take 1 tablet (81 mg total) by mouth daily. Active atorvastatin 20 MG tablet Take 1 tablet (20 mg total) by mouth daily. Active propranolol LA 80 MG 24 hr capsule Take 1 capsule (80 mg total) by mouth daily. Active fluticasone furoate 27.5 MCG/SPRAY Suspension 1 spray by Each Nostril route. Active fish oil 1000 MG Cap capsule Take 100 mg by mouth daily. Active vitamin D3, cholecalciferol, 10 MCG (400 UNIT) tablet Take 1 tablet (400 Units total) by mouth daily. 2 tabs daily Active clobetasol 0.05 % Cream Apply 1 each topically 2 (two) times daily. Active omeprazole (PRILOSEC) 20 MG capsule 03/19/20 23 Active trimethoprim (TRIMPEX) 100 MG tablet Take 1 tablet (100 mg total) by mouth. 08/08/20 24 Active estradiol (ESTRACE) 0.1 MG/GM vaginal cream Place 1 g vaginally. 02/07/20 25 Active GEMTESA 75 MG tablet Take 1 tablet (75 mg total) by mouth daily. 08/04/20 24 Active cetirizine (ZYRTEC) 10 MG tablet Take 1 tablet (10 mg total) by mouth daily. 30 tablet 03/01/20 25 Active famotidine (PEPCID) 40 MG tablet Take 1 tablet (40 mg total) by mouth daily for 15 days. 15 tablet 03/07/20 25 025 Active predniSONE (DELTASONE) 20 MG tablet Take 2 tablets a day by mouth for 5 days then take 1 tab a day by mouth for 5 days 15 tablet 03/07/20 25 Active dextromethorphan- guaiFENesin ER (MUCINEX DM) 30-600 MG TABLET SR 12 HR 12 hr tablet Take 1 tablet by mouth every 12 (twelve) hours as needed. 28 tablet 01/17/20 24 025 Discontinued ondansetron (ZOFRAN-ODT) 4 MG disintegrating tablet Take 1 tablet (4 mg total) by mouth every 8 (eight) hours as needed. 20 tablet 02/16/20 24 025 Discontinued nitrofurantoin, macrocrystal-mono hydrate, (MACROBID) 100 MG capsule Take 1 capsule (100 mg total) by mouth 2 (two) times daily for 5 days. 10 capsule 03/01/20 25 025 predniSONE (DELTASONE) 20 MG tablet Take 2 tablets a day by mouth for 5 days then take 1 tab a day by mouth for 5 days 15 tablet 03/07/20 25 025 Discontinued famotidine (PEPCID) 40 MG tablet Take 1 tablet (40 mg total) by mouth daily for 15 days. 15 tablet 03/07/20 25 025 Discontinued Active Problems No known active problems Encounters Date Type Department Care Team Description 03/07/2025 4:56 AM CDT - 03/07/2025 7:30 AM CDT Emergency [facility] [place] [address] Laurel Schroeder MD Auer, Charles E, MD Skin Problem Discharge Disposition: Home or Self Care (Routine Discharge) 03/07/2025 Travel 03/04/2025 Results Follow-Up [facility] [address] [place] [address] Sandra Purdy MD CULTURE URINE 03/01/2025 2:48 PM CDT - 03/01/2025 3:20 PM CDT Hospital Encounter [facility] [address] [facility] [place] [address] Dominga Cee DO Urinary Symptoms; Sinus Problem Discharge Disposition: Home or Self Care (Routine Discharge) 03/01/2025 Travel 01/27/2025 8:24 AM CDT - 01/27/2025 8:56 AM CDT Hospital Encounter [facility] [address] [place] [address] Andrea Feliz MD Urinary Symptoms Discharge Disposition: Home or Self Care (Routine Discharge) 01/27/2025 Travel from Last 3 Months Family History Medical History Relation Comments Hypertension Mother Relation Status Comments Father Mother Alive Social History Tobacco Use Types Packs/Day Years Used Date Smoking Tobacco: Every Day Cigarettes 0.5 40 Passive Smoke Exposure: Past Smokeless Tobacco: Never Tobacco Cessation:Ready to Q uit: Not Asked; Counseling Given: Not Answered Alcohol Use Standard Drinks/Week Comments Yes 0 (1 standard drink = 0.6 oz pur e alcohol) 3 times year Comments No Sex and Gender Information Value Date Recorded Sex Assigned at Female 11/09/2024 10:20 AM 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 KERNEL 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 Legal Sex Female 4:33 PM CDT Gender [...] Mass Index 32.8 03/07/2025 4:53 AM CDT Plan of Treatment Health Maintenance Due Date Last Done Comments Cervical Cancer Screening Pa p Smear (Age 30 to 64) Every 3 Years 1965 Annual Physical 01/05/1967 Hepatitis C 01/05/1982 Cervical Cancer Screening Pa p with HPV Testing (Age 30 to 64) Every 5 Years 01/05/1994 Cervical Cancer Screening wi th HPV 01/05/1994 Pneumococcal Vaccine: 50+ Years (2 of 2 - PCV) 09/02/2013 09/02/2012 Lung Cancer Screening 01/05/2014 Mammogram Screening 11/07/2021 11/07/2019 COVID-19 Vaccine (4 - 2023-2 5 season) 2024 11/13/2021, 02/07/2021, 01/10/2021 DTaP, Tdap and Td Vaccines ( 3 - Td or Tdap) 10/04/2029 10/04/2019, 02/16/2007, 01/26/1997 Colorectal Cancer Screening Colonoscopy (10 Years) 09/25/2030 09/25/2020 RSV Immunization or 60+ Years (1 - 1-dose 75+ series) 01/05/2039 Meningococcal Vaccine Aged Out 11/21/2003 No yoan jevon eligible based on patient's age to complete this topic Zoster Vaccines Completed 05/30/2021, 03/29/2021 Meningococcal B Vaccine Aged Out No l onger eligible based on patient's age to complete this topic RSV Immunizations Under 20 Months Aged Out No longer eligible b ased on patient's age to complete this topic Procedures Procedure Name Priority Date/Time Associated Diagnosis Comments COMPREHENSIVE METABOLIC PANEL STAT 03/07/2025 5:20 AM CDT CBC W/DIFF AUTOMATED STAT 03/07/2025 5:20 AM CDT STREP A RAPID STAT 03/01/2025 3:00 PM CDT URINE BACTERIA CULTURE STAT 3:00 PM CDT URINALYSIS AUTO DIP STAT 03/01/2025 3 :00 PM CDT URINE BACTERIA CULTURE STAT 8:47 AM CDT URINALYSIS AUTO DIP STAT 01/27/2025 8 :39 AM CDT from Last 3 Months Results * (ABNORMAL) COMPREHENSIVE METABOLIC PANEL (03/07/2025 5:20 AM CDT) [facility] GLUCOSE 110(H) 70 - 99 MG/DL 03/07/2025 6:13 AM CDT [facility] BUN 19(H) 7 - 18 MG/DL 03/07/2025 6:13 AM CDT [facility] CREATININE S/P/B 0.62 0.55 - 1.02 MG/DL 03/07/2025 6:13 AM CDT [facility] SODIUM S/P/B 138 136 - 145 MMOL/L 03/07/2025 6:13 AM CDT [facility] POTASSIUM S/P/B 3.8 3.5 - 5.1 MMOL/L 03/07/2025 6:13 AM CDT [facility] CHLORIDE S/P/B 110 97 - 115 MMOL/L 03/07/2025 6:13 AM CDT [facility] CO2 21.4 21 - 32 MMOL/L 03/07/2025 6:13 AM CDT [facility] CALCIUM S/P/B 9.9 8.5 - 10.1 MG/DL 03/07/2025 6:13 AM CDT [facility] BILIRUBIN TOTAL S/P/B 0.4 0.2 - 1.2 MG/DL 03/07/2025 6:13 AM CDT [facility] Comment: THIS ASSAY IS NOT RECOMMENDED FOR PATIENTS UNDERGOING TREATMENT WITH ELTROMBOPAG DUE TO THE POTENTIAL FOR FALSELY ELEVATED RESULTS. TOTAL PROTEIN S/P/B 7.5 6.4 - 8.2 G/DL 03/07/2025 6:13 AM CDT [facility] ALBUMIN S/P/B 3.6 3.4 - 5.0 G/DL 03/07/2025 6:13 AM CDT [facility] AST 26 15 - 37 U/L 03/07/2025 6:13 AM CDT [facility] ALT 39 14 - 55 U/L 03/07/2025 6:13 AM CDT [facility] ALKALINE PHOSPHATASE S/P/B 95 50 - 136 U/L 03/07/2025 6:13 AM CDT [facility] ANION GAP 6.6 2 - 10 MMOL/L 03/07/2025 6:13 AM CDT [facility] BUN CREATININE RATIO 30.8(H) 6 - 03/07/2025 6:13 AM CDT [facility] A/G RATIO 0.9(L) 1.0 - 2.0 RATIO 03/07/2025 6:13 AM CDT [facility] GFR ESTIMATE >90 >90 ML/MIN/1.7 3 M2 03/07/2025 6:13 AM CDT [facility] Comment: NOTE: eGFR is not calculated for patients <18 years of age or gender unknown. This is an estimated GFR calculation using the new CKD EPI creatinine equation without race and so does not require a correction factor for race. This estimated GFR should not be used for calculating drug doses. 03/07/2025 5:20 AM CDT Laurel Schroeder MD LABORATORY Final Resul t [facility] [address] [place] [address], [place] [phone] * (ABNORMAL) CBC W/DIFF AUTOMATED (03/07/2025 5:20 AM CDT) WBC 5.55 4.5 - 11.0 x10'3/uL 03/07/2025 5:52 AM CDT [facility] RBC 5.10 4.20 - 5.40 x10'6/uL 03/07/2025 5:52 AM CDT [facility] HGB 15.1 12.0 - 16.0 G/DL 03/07/2025 5:52 AM CDT [facility] HCT 46.3 38.0 - 48.0 % 03/07/2025 5:52 AM CDT [facility] MCV 90.8 81.0 - 99.0 FL 03/07/2025 5:52 AM CDT [facility] MCH 29.6 27.0 - 31.0 PG 03/07/2025 5:52 AM CDT [facility] MCHC 32.6 32.0 - 36.0 G/DL 03/07/2025 5:52 AM CDT [facility] RDW 13.0 11.5 - 14.5 % 03/07/2025 5:52 AM CDT [facility] PLT 233 130 - 400 x10'3/uL 03/07/2025 5:52 AM CDT [facility] MPV 11.1 9.3 - 12.2 FL 03/07/2025 5:52 AM CDT [facility] DIFFERENTIAL TYPE AUTOMATED DIFFERENTIAL 03/07/2025 5:52 AM CDT [facility] NEUTROPHILS % 63.2 % 03/07/2025 5:52 AM CDT [facility] LYMPHOCYTES % 31.7 % 03/07/2025 5:52 AM CDT [facility] MONOCYTES % 3.6 % 03/07/2025 5:52 AM CDT [facility] EOSINOPHILS 0.9 % 03/07/2025 5:52 AM CDT [facility] BASOPHILS 0.2 % 03/07/2025 5:52 AM CDT [facility] IMMATURE GRANS % 0.4 % 03/07/20 5:52 AM CDT [facility] ABS. NEUTROPHILS 3.51 1.80 - 7.70 x10'3/uL 03/07/2025 5:52 AM CDT [facility] ABS. LYMPHOCYTES 1.76 1.00 - 4.80 x10'3/uL 03/07/2025 5:52 AM CDT [facility] ABS. MONOCYTES 0.20(L) 0.24 - 0.86 x10'3/uL 03/07/2025 5:52 AM CDT [facility] ABS. EOSINOPHILS 0.05 0.04 - 0.36 x10'3/uL 03/07/2025 5:52 AM CDT [facility] ABS. BASOPHILS 0.01 0.01 - 0.08 x10'3/uL 03/07/2025 5:52 AM CDT [facility] ABS. IMMATURE GRANULOCYTES 0.02 0.00 - 0.49 x10'3/uL 03/07/2025 5:52 AM CDT [facility] 03/07/2025 5:20 AM CDT Laurel Schroeder MD LABORATORY Final Resul t [facility] [address] [place] [address], * (ABNORMAL) CULTURE URINE (03/01/2025 3:00 PM CDT) Only the most recent of2 resultswithin the time period is included. SPEC DESCRIPTION URINE CLEAN CATCH 03/01/2025 3:[address] [facility] SPECIAL REQUESTS NO SPECIAL REQUEST 03/01/2025 3:[address] [facility] CULTURE RESULT 50,000-100, 000 COL/ML ENTEROBACTE R CLOACAE COMPLEX (A) 03/04/2025 7:42 AM CDT [facility] URINE SPECIMEN OBTAINED BY CLEAN CATCH PROCEDURE / Unknown 03/01/2025 3:00 PM CDT 03/02/2025 9:49 AM CDT Narrative Organism Antibiotic Method Susceptibility Enterobacter cloacae complex CEFEPIME TIARRA (VITEK) <=1: Sensitive Enterobacter cloacae complex CEFTRIAXONE TIARRA (VITEK) >=64: Resistant Enterobacter cloacae complex CEFTAZIDIME TIARRA (VITEK) >=64: Resistant Enterobacter cloacae complex CEFAZOLIN TIARRA (VITEK) >=64: Resistant Enterobacter cloacae complex NITROFURANTOIN TIARRA (VITEK ) 32: Sensitive Enterobacter cloacae complex GENTAMICIN TIARRA (VITEK) <=1: Sensitive Enterobacter cloacae complex LEVOFLOXACIN TIARRA (VITEK) <=0.12: Sensitive Enterobacter cloacae complex MEROPENEM TIARRA (VITEK) <=0.25: Sensitive Enterobacter cloacae complex PIPRACIL/TAZO TIARRA (VITEK) >=128: Resistant Enterobacter cloacae complex TRIMETH-SULFAMETH. TIARRA (V ITEK) <=20: Sensitive Dominga Cee DO MICROBIOLOGY - GENERAL ORDERA BLES Final Result [facility] [address] [place] [address], [place] [phone] [facility] [place] [address], [place] * (ABNORMAL) URINALYSIS AUTO DIP (03/01/2025 3:00 PM CDT) Only the most recent of2 resultswithin the time period is included. SPECIMEN TYPE URINE CLEAN CATCH 03/01/2025 3:[address] [facility] COLOR (U) YELLOW 03/01/2025 3:[address] [facility] TRANSPARENCY CLOUDY 03/01/2025 3:[address] [facility] SPECIFIC GRAVITY (U) 1.025 1.001 - 1.030 03/01/2025 3:[address] [facility] U PH 5.5 5.0 - 9.0 03/01/2025 3:[address] [facility] LEUKOCYTES (U) MODERATE(A) NEGATIVE 3:[address] [facility] NITRITES POSITIVE(A) NEGATIVE 03/01/2025 3:[address] [facility] PROTEIN RANDOM (U) 100(H) <30 MG/DL 03/01/2025 3:[address] [facility] GLUCOSE (U) NEGATIVE NEGATIVE MG/DL 03/01/2025 3:[address] [facility] KETONES MG/DL (U) NEGATIVE NEGATIVE MG/DL 03/01/2025 3:[address] [facility] UROBILINOGEN 0.2(A) NEGATIVE MG/DL 03/01/2025 3:[address] [facility] BILIRUBIN (U) NEGATIVE NEGATIVE MG/DL 03/01/2025 3:[address] [facility] BLOOD (U) MODERATE(A) NEGATIVE 03/01/2025 3:[address] [facility] URINE SPECIMEN OBTAINED BY CLEAN CATCH PROCEDURE / Unknown 03/01/2025 3:00 PM CDT us Dominga Cee DO URINE ORDERABLES Final Result [facility] [place] [address], [place] * STREP A RAPID (03/01/2025 3:00 PM CDT) SPECIMEN TYPE THROAT 03/01/2025 3:03 PM CDT [facility] RAPID STREP TEST NEGATIVE NEGATIVE 03/01/2025 3:12 PM CDT [facility] STRUCTURE OF ANTERIOR PORTION OF NECK / Unknown 03/01/2025 3:00 PM CDT us Dominga Cee DO MICROBIOLOGY - GENERAL ORDERA BLES Final Result [facility] [address] [place] [address], [place] from Last [address] [place] [address] [place] [address] Care Teams Epic Beacon Analyst Relationship Specialty Start Date End Date Harley Campos MD [address] [id number] PCP - General FAMILY PRACTICE 02/16/24
--- OUTSIDE RECORDS SUMMARY | 2025-03-07 12:48 | XMS_ITS | Encounter Summary ---
Author Organization [facility] Address [address] [place] [address] Care Team Providers Care Recreational Vehicle Repairer Name Role Phone Radha Callaway Primary Care Provider [phone] None, Provider Primary Care Provider Harley Thrasher MD Primary Care Provider [phone] Encounter Details Date Type Department Care Team (Late st Contact Info) Description 09/18/2020 Prep for Procedure [facility] [place] [address] Mo Wooten MD [address] [id number] Social History Tobacco Use Types Packs/Day Years Used Date Smoking Tobacco: Every Day Cigarettes Smokeless Tobacco: Never Alcohol Use Standard Drinks/Week Comments Not Currently 0 (1 standard drink = 0.6 oz pur e alcohol) 3 times year Comments Unknown Sex and Gender Information Value Date Recorded Sex Assigned at Female 11/09/2024 10:20 AM FIELD SALES ENGINEER Legal Sex Female 4:33 PM CDT Gender Identity Not on file Sexual Orientation Not on file COVID-19 Exposure Response Date Recorded In the last month, have you been in contact with someone who was confirmed or suspected to have Coronavirus / COVID-19? Yes 09/18/2020 8:30 AM FIELD SALES ENGINEER documented as of this encounter Plan of Treatment Not on file documented as of this encounter Visit Diagnoses Diagnosis Hematochezia- Primary Blood in stool documented in this encounter Additional Health Concerns Infection Onset Date Last Indicated Resolved Time COVID-19 Rule Out 09/23/2020 09/23/2020 09/24/2020 11:56 AM FIELD SALES ENGINEER COVID-19 Rule Out 11/23/2020 11/23/2020 11/24/2020 4:31 PM FIELD SALES ENGINEER COVID-19 Rule Out 07/09/2021 07/09/2021 07/10/2021 11:47 AM CDT COVID-19 Rule Out 05/27/2023 05/27/2023 05/28/2023 7:24 AM CDT COVID-19 Rule Out 11/24/2023 11/24/2023 11/24/2023 6:55 PM FIELD SALES ENGINEER COVID-19 Rule Out 01/17/2024 01/17/2024 01/17/2024 4:46 PM CDT COVID-19 Rule Out 02/16/2024 02/16/2024 02/16/2024 3:01 PM CDT COVID-19 Rule Out 11/09/2024 11/09/2024 11/09/2024 11:14 AM FIELD SALES ENGINEER documented as of this encounter Care Teams Recreational Vehicle Repairer Relationship Specialty Start Date End Date Radha Callaway PA [facility] [address] [place] [address] PCP - General PHYSICIAN BATH STEWARD 11/15/20 05/26/23 None, ProviderMD PCP - General UNKNOWN PHYSICIAN SPECIALTY 05/27/23 02/15/24 Harley Campos MD [address] [address] PCP - General FAMILY PRACTICE 02/16/24 documented as of this encounter
--- OUTSIDE RECORDS SUMMARY | 2025-03-07 12:48 | XMS_ITS | Encounter Summary ---
Author Organization [facility] Address [address] [place] [address] Care Team Providers Care Appeals Officer Name Role Phone Harley Campos MD Primary Care Provider [phone] Encounter Details Date Type Department Care Team (Latest Contact Info) Description 03/07/2025 Travel Social History Tobacco Use Types Packs/Day Years Used Date Smoking Tobacco: Every Day Cigarettes 0.5 40 Passive Smoke Exposure: Past Smokeless Tobacco: Never Alcohol Use Standard Drinks/Week Comments Yes 0 (1 standard drink = 0.6 oz pur e alcohol) 3 times year Comments No Sex and Gender Information Value Date Recorded Sex Assigned at Female 11/09/2024 10:20 AM BED RUBBER Legal Sex Female 4:33 PM CDT Gender Identity Not on file Sexual Orientation Not on file documented as of this encounter Functional Status * Calculated C-SSRS Risk Score (Lifetime/Recent) Answer Date of Assessment Author Status No Risk Indicated 03/07/2025 4:54 AM CDT Lul Greco RN Active * [place] Suicide Severity Rating Scale (Screener/Recent Self-Report) Question Answer Date of Assessment Author Status 1. Wish to be (Past 1 Month) No 03/07/2025 4:54 AM MARYT Lul Greco RN Active 2. Non-Specific Active Suicidal Thoughts (Past 1 Month) No 03/07/2025 4:54 AM MARYT Lul Greco RN Active 6. Suicidal Behavior (Lifetime) No 03/07/2025 4:54 AM MARYT Lul Greco RN Active documented as of this encounter Plan of Treatment Not on file documented as of this encounter Visit Diagnoses Not on filedocumented in this encounter Care Teams Appeals Officer Relationship Specialty Start Date End Date Harley Campos MD [address] [phone] PCP - General FAMILY PRACTICE 02/16/24 documented as of this encounter
--- OUTSIDE RECORDS SUMMARY | 2025-03-07 12:48 | XMS_ITS | Referral Summary ---
Author Organization [address] Address [address] [place] [address] Care Team Providers Care Rehab/Pre Vocational Counselor Name Role Phone Radha Fermin Primary Care Provider [phone] Allergies No known active allergies Medications aspirin [...] p.o. q.a.m.. She will follow-up here annually. Social History Tobacco Use Types Packs/Day Years Used Date Smoking Tobacco: Every Day Cigarettes Smokeless Tobacco: Never Personal Safety Answer Date Recorded Getting School Help Needed Not on file 10/14 Comments No Sex and Gender Information Value Date Recorded Sex Assigned at Not on file Legal Sex Female 8:04 PM DIE ATTACHING MACHINE TENDER Gender Identity Not on file Sexual Orientation [...] 06/09/2024 3:35 PM CDT Plan of Treatment Not on file Procedures Procedure Name Priority Date/Time Associated Diagnosis Comments SCREENING MAMMOGRAM BILATERAL W THEO 11/07/2019 3:26 PM DIE ATTACHING MACHINE TENDER from Last 3 Months or Most Recently Relevant to Health Maintenance Results * Screening Mammogram Bilateral W Theo (11/07/2019 3:26 PM DIE ATTACHING MACHINE TENDER) Anatomical Region Laterality Modality Breast Bilateral Mammography 11/07/2019 3:49 PM DIE ATTACHING MACHINE TENDER Narrative 11/11/2019 8:09 AM DIE ATTACHING MACHINE TENDER Patient Name: CHALINO AUSTIN Dr: Yanique Walker CNP, D.O.B: 1965 Exam Date: 11/07/19 1526 Age: 54 Sex: Female MR#: [id number] Loc: [facility]#: [id number] RADIOLOGY REPORT Order #[id number] [facility] Marisol Bilat Screening 3D Signed - MG [...] made to exam dated: 02/16/2018 mammogram - [place]. BREAST TISSUE: There are scattered areas of [...] age 40, based on guidelines of the [place] [employer] (ACR Practice Parameter for the Performance of Screening and Diagnostic Mammography) and [place] [employer]. For women with an elevated risk of breast cancer, please refer to the ACR Practice Parameter for specific screening recommendations. The patient will be entered into a reminder system with a target due date of 1 year for her next screening exam. Electronically signed by: Julian Hastings rl/ebonie:11/11/2019 08:09:38 Security Compliance Engineer: Crys URIBE (Perfecto)(Krzysztof), [facility] letter sent: Normal Exam Reading location: BI-RADS: 2 Benign REPORT ELECTRONICALLY SIGNED IN OTHER VENDOR SYSTEM Resulting Agency Comment O Procedure Note Julian Toro MD - 11/11/2019 Patient Name: CHALINO AUSTIN Dr: Yanique Walker CNPOGonzalezB: 1965 Exam Date: 11/07/19 1526 Age: 54 Sex: Female MR#: [id number] Loc: RADIOLOGY REPORT Order #[id number] [facility] Marisol Bilat Screening 3D Signed - MG [...] is made to exam dated: 02/16/2018 mammogram -[place]. BREAST TISSUE: There are scattered areas of [...] age 40, based on guidelines of the [place] [employer] (ACR Practice Parameter for the Performance of Screening and Diagnostic Mammography) and [place] [employer]. For women with an elevated risk of breast cancer, pleaserefer to the ACR Practice Parameter for specific screening recommendations. The patient will be entered into a reminder system with a target due dateof 1 year for her next screening exam. Electronically signed by: Julian Hastings rl/ebonie:11/11/2019 08:09:38 Security Compliance Engineer: Crys Kumar)(Krzysztof), [facility] letter sent: Normal Exam Reading location: BI-RADS: 2 Benign REPORT ELECTRONICALLY SIGNED IN OTHER VENDOR SYSTEM Yanique Walker PET COUNSELOR IMG MAMMO PROCEDURES Final Result from Last 3 Months or Most Recently Relevant to Health Maintenance Insurance [employer] [facility] Care Teams Rehab/Pre Vocational Counselor Relationship Specialty Start Date End Date Radha Fermin PA [address] [place] [address] PCP - General Physician Reel Blade Bender Furnace Tender 05/27/21
--- OUTSIDE RECORDS SUMMARY | 2025-03-07 12:48 | XMS_ITS ---
Author Organization [facility] Address [address] [place], [place] [phone] Care Team Providers Care Corporation Pilot Name Role Phone MAHOGANY AGGARWAL Unavailable [phone] Sharmaine Campos Unavailable Unavailable REASON FOR VISIT PHYSICAL THERAPY Encounters Encounter Location Date Provider Diagnosis [facility] [address] [place], [place] [id number] 08/29/2024 MAHOGANY AGGARWAL Plan Of Treatment No Information Progress Notes * CHALINO AUSTIN KDOB:1965 (60 yo F)Acc No.[id number]:08/29/2024 Patient: Judith CRAOLINEAMARA CHALINO Luther :1965 A ge:59 Y S ex:Female Address:[facility] [place], [address] * true * Date: Generated for Mahamed hercules/Johnny/eTransmitting on: 0 03/07/2025 04:47 AM CDT
[2025-03-07 14:01] LABS: INR 0.9; Prothrombin Time 12.7 Seconds (11.1-14.7)
[2025-03-07 14:02] LABS: Partial Thromboplastin Time 24.6 Seconds (22.3-36.8)
== END 2025-03-07 12:39 | disposition home or self-care (01) ==
PROVIDERS: Visit Provider Urology
DX: N20.0 Calculus of kidney (principal); I10 Essential (primary) hypertension; F17.210 Nicotine dependence, cigarettes, uncomplicated
CPT/HCPCS: 36415; 85610; 85730; 87086; 93005

== ENCOUNTER 2025-03-10 00:06 | Day surgery (SDC) | payer OTHER, SELFPAY ==
--- NOTE | 2025-03-01 11:47 | P.HP_ITS ---
History of Present Illness History of Present Illness Consent: Risks, benefits, and alternatives have been discussed and questions answered. Patient agrees to proceed with procedure. Chief complaint: left kidney stone Narrative: Patricia Garcia is a 60 year old female without prior significant history of urolithiasis who was undergoing evaluation for recurrent urinary tract infections by my partner Dr. Hale. Imaging demonstrated a 1 cm left renal pelvic stone in smaller stone in the right lower pole calyx. After discussion of options she has elected for left ESWL. She is aware of the risk including, but not limited to, adverse cardiopulmonary events, need for additional procedures to clear her of stones, hematuria and perinephric hematoma. Review of Systems Review of Systems: All systems reviewed & are unremarkable except as noted in HPI and below Exam Const: General: no acute distress Resp: Effort & Inspection: normal respiratory effort GI: Inspection: non-distended GI Palp: No abdominal tenderness and No Guarding due to palpation present (GI) Auscultation: normal bowel sounds Assessment and Plan Assessment and plan (1) Bilateral kidney stones: Code(s): N20.0 - Calculus of kidney Status: Acute Assessment and Plan: * left ESWL
[2025-03-01 12:22] VITALS: BMI 31.8
--- NOTE | 2025-03-01 12:23 | PC.NURSE ---
Addendum entered by Remy Guerrero RN 03/01/25 15:10: Patient says he's holding aspirin for 7 days prior to surgery. Original Note: Report to the Outpatient Waiting Room, entrance under the green pavilion located off [facility], at time _0600_ on date _[id number]_. Planned Procedure Time: _0730_. Time changes happen often and if your time is changed the preop area will call you the afternoon before. - You and your visitor will be asked to self-screen and do not enter if you have any COVID symptoms. Please call surgeon if you need to reschedule. - A mask is optional within the hospital at this time. Patients may have clear liquids (water, carbonated beverages, clear teas, apple juice) until 3 hours prior to surgery with a maximum of 20 ounces. - No food from midnight until time of surgery and no smoking, or chewing tobacco (or any form of nicotine). No chewing gum, candy or mints. Take only the following medications with a SIP of water on the morning of surgery: __Propanolol___ DO NOT STOP ANY OF YOUR OTHER PRESCRIPTION MEDICATIONS PRIOR TO SURGERY EXCEPT THE FOLLOWING Hold all vitamins and supplements for 3 days per anesthesiologist. Medications to discontinue per physician Date to take last ernc___[id number]___ Please no make-up, nail indonesian, hairspray, perfume, deodorant, or body powder the day of surgery. No jewelry (including any body piercings) or valuables the day of surgery, leave them at home. Please take a shower or bath the night before, or the morning of, surgery with an antibacterial soap. Wear comfortable, loose fitting clothing. - Jewelry must be removed prior to entering the operating room. Rings and piercings that are not removed may be cut off. - The hospital will not accept responsibility for valuables. - Please leave all valuables, including medications, at home the day of surgery. If you are going home after surgery, a licensed hazmat truck driver must drive you home. - NO public transportation without another adult if you receive anesthesia. - We recommend that an adult stay with you for 24 hours following discharge. - We also recommend that you do not drive, make important decision, drink alcoholic beverages, or take any drugs that were not prescribed by your health care provider for at least 24 hours after your discharge time. Follow any additional instructions given to you from your surgeon. Telephone instructions given to __Patricia__and asked if any additional questions and then verbalized understanding. Patient advised to call surgeon office or pre surgery nurse liaison [phone] if any additional questions.
[2025-03-10] VITALS (8 sets, daily range): BP systolic 141–155; BP diastolic 81–92; PULSE 60–80; RESP 12–18; TEMP 36.2–36.7; O2SAT 95–100; BMI 33.0
--- NOTE | ~2025-03-10 | XR_ITS ---
XR abdomen/kub 1V 03/10/2025 06:07 Indication: Pre lithotripsy left renal stone. Procedure: KUB Comparison: 12/26/2024 Findings: Stable bilateral renal stones. Stable pelvic phleboliths. Bowel gas pattern nonobstructive. Mild lumbar spondylosis with dextrocurvature. No acute osseous abnormality. Moderate colonic fecal l oading. Impression: 1: Stable bilateral renal stones, largest in the left kidney measuringr 1.8 x 0.8 cm. Reviewed, dictated and finalized at location A. Impression: 1: Stable bilateral renal stones, largest in the left kidney measuringr 1.8 x 0 .8 cm.
--- OUTSIDE RECORDS SUMMARY | 2025-03-10 00:09 | XMS_ITS | Patient Health Record ---
Author Organization [facility] Address [address] [place], [place] [phone] Care Team Providers Care Shotblaster Name Role Phone MAHOGANY AGGARWAL Unavailable [phone] Sharmaine Campos Unavailable Unavailable Allergies No Known Allergies Reason For Referral Reason REFERRAL ( E STABLISHED VISITS ) Diagnosis 1 Plantar fascial fibr omatosis (M72.2) Referred Organization [facility] Referred Provider MAHOGANY AGGARWAL Referred Address [address],[place], [id number], Referred Provider Specialty Podiatry Referral Priority Routine [...] Vaccine Route Administration Date Status Comme nts Influenza, high dose seasonal Unknown 01/10/2025 Admini stered Pneumococcal conjugate PCV 13 Unknown 01/10/2025 Admini stered Vital Signs Height-cm 170.18 cm 08/23/2024 Weight-kg 95.26 kg 08/23/2024 Height 67 in 08/23/2024 Weight 210 lbs 08/23/2024 BMI 32.89 kg/m2 08/23/2024 Encounters Encounter Location Date Provider Diagnosis [facility] [address] [facility] [address] [place], [place] [phone] 04/27/2024 MAHOGANY SNOOK Plantar fascial fibromatosis M72.2 ; Calcaneal spur, left foot M77.32 and Left foot pain M79.672 [facility] [address] [place], [place] [id number] 05/18/2024 MAHOGANY SNOOK Plantar fascial fibromatosis M72.2 ; Calcaneal spur, left foot M77.32 and Left foot pain M79.672 [facility] [address] [place], [place] [id number] 06/08/2024 MAHOGANY SNOOK Plantar fascial fibromatosis M72.2 ; Calcaneal spur, left foot M77.32 and Left foot pain M79.672 [facility] [address] [place], [place] [id number] 08/02/2024 MAHOGANY SNOOK Plantar fascial fibromatosis M72.2 ; Calcaneal spur, left foot M77.32 and Left foot pain M79.672 [facility] [address] [place], [place] [id number] 08/23/2024 MAHOGANY SNOOK Plantar fascial fibromatosis M72.2 ; Calcaneal spur, left foot M77.32 and Left foot pain M79.672 [facility] [address] [facility] [address] [place], [place] [phone] 08/29/2024 MAHOGANY SNOOK Assessments Encounter Date Diagnosis [...] Insured Coverage Start Date Coverage End Date [facility] [address] [place] [address] [id number] SHARMAINE AUSTIN Spouse - patient is the spouse of the insured Medical (General) History Medical History History ICD Code acid reflux kidney stones hepatitis hemorrhoids eczema psoriasis hypersomnolence urinary incontinence
--- OUTSIDE RECORDS SUMMARY | 2025-03-10 00:09 | XMS_ITS | Encounter Summary ---
Author Organization [facility] Address [address] [place] [address] Care Team Providers Care Attorney General Name Role Phone Harley Campos MD Primary Care Provider [phone] Encounter Details Date Type Department Care Team (Late st Contact Info) Description 03/04/2025 Results Follow-Up [facility] Care [address] [place] [address] Sandra Purdy MD [address] [place], [place] [phone] CULTURE URINE Social History Tobacco Use Types Packs/Day Years Used Date Smoking Tobacco: Every Day Cigarettes 0.5 40 Passive Smoke Exposure: Past Smokeless Tobacco: Never Alcohol Use Standard Drinks/Week Comments Yes 0 (1 standard drink = 0.6 oz pur e alcohol) 3 times year Comments No Sex and Gender Information Value Date Recorded Sex Assigned at Female 11/09/2024 10:20 AM HAND TUBE WINDER Legal Sex Female 4:33 PM CDT Gender Identity Not on file Sexual Orientation Not on file documented as of this encounter Functional Status * Calculated C-SSRS Risk Score (Lifetime/Recent) Answer Date of Assessment Author Status No Risk Indicated 03/07/2025 4:54 AM MARYT Lul Greco RN Active * [place] Suicide Severity Rating Scale (Screener/Recent Self-Report) Question [...] on filedocumented in this encounter Care Teams Attorney General Relationship Specialty Start Date End Date Harley Campos MD [address] [address] PCP - General FAMILY PRACTICE 02/16/24 documented as of this encounter
--- OUTSIDE RECORDS SUMMARY | 2025-03-10 00:10 | XMS_ITS | Clinical Summary ---
Author Organization [address] Address [address] [place] [address] Care Team Providers Care Hand Funnel Coater Name Role Phone Radha Fermin Primary Care Provider [phone] Allergies No known active allergies Medications aspirin [...] on file Legal Sex Female 8:04 PM ACCOUNTS RECEIVABLE PROCESSOR Gender Identity Not on file Sexual Orientation [...] MAMMOGRAM BILATERAL W THEO 11/07/2019 3:26 PM ACCOUNTS RECEIVABLE PROCESSOR from Last 3 Months or Most Recently Relevant to Health Maintenance Results * Screening Mammogram Bilateral W [place] (11/07/2019 3:26 PM ACCOUNTS RECEIVABLE PROCESSOR) Anatomical Region Laterality Modality Breast Bilateral Mammography 11/07/2019 3:49 PM ACCOUNTS RECEIVABLE PROCESSOR Narrative 11/11/2019 8:09 AM ACCOUNTS RECEIVABLE PROCESSOR Patient Name: CHALINO AUSTIN Dr: Yanique Walker CNP, D.O.B: 1965 Exam Date: 11/07/19 1526 Age: 54 Sex: Female MR#: [id number] Loc: RADIOLOGY REPORT Order #[id number] [facility] Marisol Bilat Screening 3D Signed - MG [...] made to exam dated: 02/16/2018 mammogram - [place]. BREAST TISSUE: There are scattered areas of [...] age 40, based on guidelines of the [place] [employer] (ACR Practice Parameter for the Performance of Screening and Diagnostic Mammography) and [place] [employer]nec[employer]. For women with an elevated risk of breast cancer, please refer to the ACR Practice Parameter for specific screening recommendations. The patient will be entered into a reminder system with a target due date of 1 year for her next screening exam. Electronically signed by: Julian Hastings rl/ebonie:11/11/2019 08:09:38 Liquid Fertilizer Servicer: Crys Sanchez (R)), [facility] letter sent: Normal Exam Reading location: BI-RADS: 2 Benign REPORT ELECTRONICALLY SIGNED IN OTHER VENDOR SYSTEM Resulting Agency Comment O Procedure Note Julian Toro MD - 11/11/2019 Patient Name: NORMANCHALINO Dr: Yanique Walker CNP, D.O.B: 1965 Exam Date: 11/07/19 1526 Age: 54 Sex: Female MR#: [id number] Loc: RADIOLOGY REPORT Order #[id number] [facility] Marisol Bilat Screening 3D Signed - MG [...] is made to exam dated: 02/16/2018 mammogram -[place]. BREAST TISSUE: There are scattered areas of [...] age 40, based on guidelines of the [place] [employer] (ACR Practice Parameter for the Performance of Screening and Diagnostic Mammography) and [place] [employer]. For women with an elevated risk of breast cancer, pleaserefer to the ACR Practice Parameter for specific screening recommendations. The patient will be entered into a reminder system with a target due dateof 1 year for her next screening exam. Electronically signed by: Julian Hastings rl/ebonie:11/11/2019 08:09:38 Liquid Fertilizer Servicer: Crys Kumar)(Krzysztof), [facility] letter sent: Normal Exam Reading location: BI-RADS: 2 Benign REPORT ELECTRONICALLY SIGNED IN OTHER VENDOR SYSTEM Yanique Walker NP IMG MAMMO PROCEDURES Final Result from Last 3 Months or Most Recently Relevant to Health Maintenance Insurance [facility] Care Teams Hand Funnel Coater Relationship Specialty Start Date End Date Radha Fermin PA [address] [place], [place] [address] PCP - General Physician Organ Builder 05/27/21
--- OUTSIDE RECORDS SUMMARY | 2025-03-10 00:10 | XMS_ITS | Clinical Summary ---
Author Organization [facility] Address [address] [facility] Attn: Epic Prelude ADT DAPHNE OREILLY [address] Care Team Providers Care Laboratory Assistant Name Role Phone Unavailable Primary Care Provider Unavailabl e Allergies No known active allergies Medications clobetasoL (TEMOVATE) 0.05 % Cream APPLY TO RASH ON BODY TWO TIMES A DAY NEEDED 60 Gram 9 03/20/2022 7:54 PM CDT 1 Active benzonatate (TESSALON) 100 mg capsule Take 1 capsule (100 mg) by mouth every 8 (eight) hours 21 Capsule 09/03/2022 12:58 PM ADDICTION NURSE 2 Active modafiniL (PROVIGIL) 200 mg Tablet Take 2 tablets (400 mg total) by mouth every morning 60 Tablet 5 04/20/2023 10:40 AM CDT 3 Active estradioL (Estrace) 0.01% (0.1 mg/g) vaginal cream Insert 1 gram vaginally twice weekly 42.5 Gram 4 09/21/2023 12:43 PM ADDICTION NURSE 3 Active oxyBUTYnin (DITROPAN) 5 mg tablet Take 1 Tablet (5 mg) by mouth 2 times daily. 60 Tablet 11 09/21/2023 12:43 PM ADDICTION NURSE 3 Active ondansetron (ZOFRAN ODT) 4 mg Tablet, Rapid Dissolve Dissolve 1 tablet (4 mg total) on the tongue every 8 (eight) hours as needed. 20 Tablet 02/17/2024 8:57 AM CDT 4 Active sulfamethoxazol e-trimethoprim (BACTRIM DS) 800-160 mg tablet Take 1 Tablet by mouth 2 times daily. 14 Tablet 06/29/2024 4:21 PM CDT 4 Active methylPREDNISol one (MEDROL DOSPACK) 4 mg Tablets, Dose Pack [...] daily. 90 Tablet 1 11/11/2024 3:22 PM ADDICTION NURSE 4 Active trimethoprim (TRIMPEX) 100 mg tablet [...] 2 02/06/2025 4:07 PM CDT 5 Active sulfamethoxazol e-trimethoprim (Bactrim DS) 800-160 mg tablet Take 1 [...] Tablet 03/07/2025 8:49 AM CDT 5 Active nitrofurantoin (MACROBID) 100 mg capsule Take 1 [...] (1 - 1-dose 75+ series) 01/05/2039 [employer]
--- OUTSIDE RECORDS SUMMARY | 2025-03-10 00:10 | XMS_ITS | Encounter Summary ---
Author Organization [facility] Address [address] [place] [address] Care Team Providers Care Manager Site Name Role Phone Radha Callaway Primary Care Provider [phone] None, Provider Primary Care Provider Harley Thrasher MD Primary Care Provider [phone] Encounter Details Date Type Department Care Team (Late st Contact Info) Description 11/15/2020 Prep for Procedure [facility] [place], [place] [phone] Giselle Maddox MD [address] [place] [address] [place] [address] Social History Tobacco Use Types Packs/Day Years Used Date Smoking Tobacco: Every Day Cigarettes 0.5 40 Smokeless Tobacco: Never Alcohol Use Standard Drinks/Week Comments Not Currently 0 (1 standard drink = 0.6 oz pur e alcohol) 3 times year Comments No Sex and Gender Information Value Date Recorded Sex Assigned at Female 11/09/2024 10:20 AM REGIONAL EDUCATION COORDINATOR Legal Sex Female 4:33 PM CDT Gender Identity Not on file Sexual Orientation Not on file COVID-19 Exposure Response Date Recorded In the last month, have you been in contact with someone who was confirmed or suspected to have Coronavirus / COVID-19? No / Unsure 11/15/2020 3:07 PM REGIONAL EDUCATION COORDINATOR documented as of this encounter Plan of Treatment Not on file documented as of this encounter Results * PRE-SURGICAL/PRE-PROCEDURE CORONAVIRUS (COVID 19) (11/23/2020 10:30 AM REGIONAL EDUCATION COORDINATOR) CORONAVIRUS SARS COV 2 PCR (RESP) NOT DETECTED NOT DETECTED 11/24/2020 4:31 PM REGIONAL EDUCATION COORDINATOR [employer] [facility] Comment: A Not Detected (negative) test result [...] providers and patients using the following websites: https://www.[employer].Myndnet/home/Covid-19/HCP/NAAT/fact-sheet2 https://www.[employer].Myndnet/home/Covid-19/Patients/NAAT/ fact-sheet2 This test has been authorized by the FDA under an Emergency Use Authorization (EUA) for use by authorized laboratories. Due to the current public health emergency, [facility] is receiving a high volume of samples [...] about COVID-19 can be found at the [facility] website: www.Billdesk.Myndnet/Covid19. Test performed at [facility] [place] [address] [place] [address] Director: RHYS GARCIA DO,MPH [facility] NO 11/23/2020 12:43 PM REGIONAL EDUCATION COORDINATOR [facility] EMPLOYED IN HEALTHCARE NO 11/23/2020 12:43 PM REGIONAL EDUCATION COORDINATOR [facility] SYMPTOMATIC DEFINED BY CDC NO 11/23/2020 12:43 PM REGIONAL EDUCATION COORDINATOR [facility] DATE OF SYMPTOM ONSET UNKNOWN 11/23/2020 1:15 PM REGIONAL EDUCATION COORDINATOR [facility] HOSPITALIZATION STATUS NO 11/23/2020 12:43 PM REGIONAL EDUCATION COORDINATOR [facility] PATIENT IN ICU NO 11/23/2020 12:43 PM REGIONAL EDUCATION COORDINATOR [facility] RESIDENT OF [facility] NO 11/23/2020 12:43 PM REGIONAL EDUCATION COORDINATOR [facility] NOT 11/23/2020 12:43 PM REGIONAL EDUCATION COORDINATOR [facility] PATIENT'S RACE WHITE OR 11/23/2020 12:43 PM REGIONAL EDUCATION COORDINATOR [facility] ETHNICITY NONHISPANIC 11/23/2020 12:43 PM REGIONAL EDUCATION COORDINATOR [facility] SOURCE (QST) NASOPHARYNGEAL SWAB 11/23/2020 12:43 PM REGIONAL EDUCATION COORDINATOR [facility] NASOPHARYNGEAL SWAB / Unknown 11/23/2020 10:30 AM REGIONAL EDUCATION COORDINATOR us Giselle Maddox MD MICROBIOLOGY - GENERAL ORDERABLE S Final Result [facility] [address] [place] [address], [employer] [facility] [address] [place] [address], documented in this encounter Visit Diagnoses Diagnosis Preop examination- Primary Preoperative examination, unspecified documented in this encounter Additional Health Concerns Infection Onset Date Last Indicated Resolved Time COVID-19 Rule Out 11/23/2020 11/23/2020 11/24/2020 4:31 PM REGIONAL EDUCATION COORDINATOR COVID-19 Rule Out 07/09/2021 07/09/2021 07/10/2021 11:47 AM CDT COVID-19 Rule Out 05/27/2023 05/27/2023 05/28/2023 7:24 AM CDT COVID-19 Rule Out 11/24/2023 11/24/2023 11/24/2023 6:55 PM REGIONAL EDUCATION COORDINATOR COVID-19 Rule Out 01/17/2024 01/17/2024 01/17/2024 4:46 PM CDT COVID-19 Rule Out 02/16/2024 02/16/2024 02/16/2024 3:01 PM CDT COVID-19 Rule Out 11/09/2024 11/09/2024 11/09/2024 11:14 AM REGIONAL EDUCATION COORDINATOR documented as of this encounter Care Teams Manager Site Relationship Specialty Start Date End Date Radha Callaway PA [facility] [address] [place] [address] PCP - General PHYSICIAN CAGE LOADER 11/15/20 05/26/23 None, ProviderMD PCP - General UNKNOWN PHYSICIAN SPECIALTY 05/27/23 02/15/24 Harley Campos MD [address] [phone] PCP - General FAMILY PRACTICE 02/16/24 documented as of this encounter
--- OUTSIDE RECORDS SUMMARY | 2025-03-10 00:10 | XMS_ITS | Encounter Summary ---
Author Organization [facility] Address [address] [place] [address] Care Team Providers Care Automotive Center Manager Name Role Phone Radha Callaway Primary Care Provider [phone] None, Provider Primary Care Provider Harley Thrasher MD Primary Care Provider [phone] Encounter Details Date Type Department Care Team (Late st Contact Info) Description 09/18/2020 Prep for Procedure [facility] [place] [address] Mo Wooten MD [address] [id number] Social History Tobacco Use Types Packs/Day Years Used Date Smoking Tobacco: Every Day Cigarettes Smokeless Tobacco: Never Alcohol Use Standard Drinks/Week Comments Not Currently 0 (1 standard drink = 0.6 oz pur e alcohol) 3 times year Comments Unknown Sex and Gender Information Value Date Recorded Sex Assigned at Female 11/09/2024 10:20 AM SENIOR STOCK PLAN ADMINISTRATOR Legal Sex Female 4:33 PM CDT Gender Identity Not on file Sexual Orientation Not on file COVID-19 Exposure Response Date Recorded In the last month, have you been in contact with someone who was confirmed or suspected to have Coronavirus / COVID-19? Yes 09/18/2020 8:30 AM SENIOR STOCK PLAN ADMINISTRATOR documented as of this encounter Plan of Treatment Not on file documented as of this encounter Visit Diagnoses Diagnosis Hematochezia- Primary Blood in stool documented in this encounter Additional Health Concerns Infection Onset Date Last Indicated Resolved Time COVID-19 Rule Out 09/23/2020 09/23/2020 09/24/2020 11:56 AM SENIOR STOCK PLAN ADMINISTRATOR COVID-19 Rule Out 11/23/2020 11/23/2020 11/24/2020 4:31 PM SENIOR STOCK PLAN ADMINISTRATOR COVID-19 Rule Out 07/09/2021 07/09/2021 07/10/2021 11:47 AM CDT COVID-19 Rule Out 05/27/2023 05/27/2023 05/28/2023 7:24 AM CDT COVID-19 Rule Out 11/24/2023 11/24/2023 11/24/2023 6:55 PM SENIOR STOCK PLAN ADMINISTRATOR COVID-19 Rule Out 01/17/2024 01/17/2024 01/17/2024 4:46 PM CDT COVID-19 Rule Out 02/16/2024 02/16/2024 02/16/2024 3:01 PM CDT COVID-19 Rule Out 11/09/2024 11/09/2024 11/09/2024 11:14 AM SENIOR STOCK PLAN ADMINISTRATOR documented as of this encounter Care Teams Automotive Center Manager Relationship Specialty Start Date End Date Radha Callaway PA [facility] [address] [place] [address] PCP - General PHYSICIAN NIGHT TIME NANNY 11/15/20 05/26/23 None, ProviderMD PCP - General UNKNOWN PHYSICIAN SPECIALTY 05/27/23 02/15/24 Harley Campos MD [address] [address] PCP - General FAMILY PRACTICE 02/16/24 documented as of this encounter
--- OUTSIDE RECORDS SUMMARY | 2025-03-10 00:10 | XMS_ITS | Clinical Summary ---
Author Organization [facility] [employer] Address [address] [place] [address] Care Team Providers Care Skiver Sock Linings Name Role Phone [address] Primary Care Prov ider Source Comments [facility] [employer],non-owned Affiliates and Associated Physician Practices is amultiple site organization consisting of ambulatory clinics and hospital sitesin [place], [place], [place] and [place]. This disclosure is being madepursuant to the Care Everywhere program and may not contain all information available regarding this patient. Last updated 18.[facility] [employer] Allergies No known active allergies Medications * [...] Relation Name Comments Hypertension Mother Cancer Other [place] Other Relation Name Status Comments Mother Other [...] on file Legal Sex Female 2:04 PM SUPERVISOR EPOXY FABRICATION Gender Identity Not on file Sexual Orientation Not on file Last Filed Vital Signs Vital Sign Reading Time Taken Comments Blood Pressure 114/62 09/02/2012 12:56 PM SUPERVISOR EPOXY FABRICATION Pulse 89 09/02/2012 12:56 PM SUPERVISOR EPOXY FABRICATION Temperature 36.9 C (98.4 F) 09/02/2012 12:56 PM SUPERVISOR EPOXY FABRICATION Respiratory Rate 20 09/02/2012 12:56 PM SUPERVISOR EPOXY FABRICATION Oxygen Saturation 97% 09/02/2012 12:56 PM SUPERVISOR EPOXY FABRICATION Inhaled Oxygen Concentration - - Weight 83.9 kg (185 lb) 09/01/2012 7:20 AM SUPERVISOR EPOXY FABRICATION Height 170.2 cm (5' 7 ) 09/01/2012 7:20 AM SUPERVISOR EPOXY FABRICATION Body Mass Index 28.98 09/01/2012 7:20 AM SUPERVISOR EPOXY FABRICATION Plan of Treatment Health Maintenance Due Date [...] 8:35 AM 09/01/2012 11:54 AM Care Teams Skiver Sock Linings Relationship Specialty Start Date [facility] [address], [place] [address] PCP - General 09/27/19
--- OUTSIDE RECORDS SUMMARY | 2025-03-10 00:10 | XMS_ITS | Clinical Summary ---
Author Organization [facility] Address [facility] [place] [address] Care Team Providers Care Greens Tier Name Role Phone Harley Campos MD Primary Care Provider [phone] Allergies No known active allergies Medications modafinil [...] CDT - 03/07/2025 7:30 AM CDT Emergency [facility] [place] [address] Laurel Schroeder MD Auer, Charles E, MD Skin Problem Discharge Disposition: Home or Self Care (Routine Discharge) 03/07/2025 Travel 03/04/2025 Results Follow-Up [facility] [address] [place] [address] Sandra Purdy MD CULTURE URINE 03/01/2025 2:48 PM CDT - 03/01/2025 3:20 PM CDT Hospital Encounter [facility] [address] [facility] [address] Dominga Cee DO Urinary Symptoms; Sinus Problem Discharge Disposition: Home or Self Care (Routine Discharge) 03/01/2025 Travel 01/27/2025 8:24 AM CDT - 01/27/2025 8:56 AM CDT Hospital Encounter [facility] [address] [place] [address] Andrea Feliz MD Urinary Symptoms Discharge Disposition: [...] Sex Assigned at Female 11/09/2024 10:20 AM HOSIERY PAIRER Legal Sex Female 4:33 PM CDT Gender [...] COMPREHENSIVE METABOLIC PANEL (03/07/2025 5:20 AM CDT) [facility] GLUCOSE 110(H) 70 - 99 MG/DL 03/07/2025 6:13 AM CDT [facility] BUN 19(H) 7 - 18 MG/DL 03/07/2025 6:13 AM CDT [facility] CREATININE S/P/B 0.62 0.55 - 1.02 MG/DL 03/07/2025 6:13 AM CDT [facility] SODIUM S/P/B 138 136 - 145 MMOL/L 03/07/2025 6:13 AM CDT [facility] POTASSIUM S/P/B 3.8 3.5 - 5.1 MMOL/L 03/07/2025 6:13 AM CDT [facility] CHLORIDE S/P/B 110 97 - 115 MMOL/L 03/07/2025 6:13 AM CDT [facility] CO2 21.4 21 - 32 MMOL/L 03/07/2025 6:13 AM CDT [facility] CALCIUM S/P/B 9.9 8.5 - 10.1 MG/DL 03/07/2025 6:13 AM CDT [facility] BILIRUBIN TOTAL S/P/B 0.4 0.2 - 1.2 MG/DL 03/07/2025 6:13 AM CDT [facility] Comment: THIS ASSAY IS NOT RECOMMENDED FOR PATIENTS UNDERGOING TREATMENT WITH ELTROMBOPAG DUE TO THE POTENTIAL FOR FALSELY ELEVATED RESULTS. TOTAL PROTEIN S/P/B 7.5 6.4 - 8.2 G/DL 03/07/2025 6:13 AM CDT [facility] ALBUMIN S/P/B 3.6 3.4 - 5.0 G/DL 03/07/2025 6:13 AM CDT [facility] AST 26 15 - 37 U/L 03/07/2025 6:13 AM CDT [facility] ALT 39 14 - 55 U/L 03/07/2025 6:13 AM CDT [facility] ALKALINE PHOSPHATASE S/P/B 95 50 - 136 U/L 03/07/2025 6:13 AM CDT [facility] ANION GAP 6.6 2 - 10 MMOL/L 03/07/2025 6:13 AM CDT [facility] BUN CREATININE RATIO 30.8(H) 6 - 03/07/2025 6:13 AM CDT [facility] A/G RATIO 0.9(L) 1.0 - 2.0 RATIO 03/07/2025 6:13 AM CDT [facility] GFR ESTIMATE >90 >90 ML/MIN/1.7 3 M2 03/07/2025 6:13 AM CDT [facility] Comment: NOTE: eGFR is not [...] Laurel Schroeder MD LABORATORY Final Resul t [facility] [address] [place] [address], [place] [phone] * (ABNORMAL) CBC W/DIFF AUTOMATED (03/07/2025 5:20 AM CDT) WBC 5.55 4.5 - 11.0 x10'3/uL 03/07/2025 5:52 AM CDT [facility] RBC 5.10 4.20 - 5.40 x10'6/uL 03/07/2025 5:52 AM CDT [facility] HGB 15.1 12.0 - 16.0 G/DL 03/07/2025 5:52 AM CDT [facility] HCT 46.3 38.0 - 48.0 % 03/07/2025 5:52 AM CDT [facility] MCV 90.8 81.0 - 99.0 FL 03/07/2025 5:52 AM CDT [facility] MCH 29.6 27.0 - 31.0 PG 03/07/2025 5:52 AM CDT [facility] MCHC 32.6 32.0 - 36.0 G/DL 03/07/2025 5:52 AM CDT [facility] RDW 13.0 11.5 - 14.5 % 03/07/2025 5:52 AM CDT [facility] PLT 233 130 - 400 x10'3/uL 03/07/2025 5:52 AM CDT [facility] MPV 11.1 9.3 - 12.2 FL 03/07/2025 5:52 AM CDT [facility] DIFFERENTIAL TYPE AUTOMATED DIFFERENTIAL 03/07/2025 5:52 AM CDT [facility] NEUTROPHILS % 63.2 % 03/07/2025 5:52 AM CDT [facility] LYMPHOCYTES % 31.7 % 03/07/2025 5:52 AM CDT [facility] MONOCYTES % 3.6 % 03/07/2025 5:52 AM CDT [facility] EOSINOPHILS 0.9 % 03/07/2025 5:52 AM CDT [facility] BASOPHILS 0.2 % 03/07/2025 5:52 AM CDT [facility] IMMATURE GRANS % 0.4 % 03/07/20 5:52 AM CDT [facility] ABS. NEUTROPHILS 3.51 1.80 - 7.70 x10'3/uL 03/07/2025 5:52 AM CDT [facility] ABS. LYMPHOCYTES 1.76 1.00 - 4.80 x10'3/uL 03/07/2025 5:52 AM CDT [facility] ABS. MONOCYTES 0.20(L) 0.24 - 0.86 x10'3/uL 03/07/2025 5:52 AM CDT [facility] ABS. EOSINOPHILS 0.05 0.04 - 0.36 x10'3/uL 03/07/2025 5:52 AM CDT [facility] ABS. BASOPHILS 0.01 0.01 - 0.08 x10'3/uL 03/07/2025 5:52 AM CDT [facility] ABS. IMMATURE GRANULOCYTES 0.02 0.00 - 0.49 x10'3/uL 03/07/2025 5:52 AM CDT [facility] 03/07/2025 5:20 AM CDT Laurel Schroeder MD LABORATORY Final Resul t [facility] [address] [place] [address], * (ABNORMAL) CULTURE URINE (03/01/2025 3:00 PM CDT) Only the most recent of2 resultswithin the time period is included. SPEC DESCRIPTION URINE CLEAN CATCH 03/01/2025 3:03 PM CDT [facility] SPECIAL REQUESTS NO SPECIAL REQUEST 03/01/2025 3:03 PM CDT [facility] CULTURE RESULT 50,000-100, 000 COL/ML ENTEROBACTE R CLOACAE COMPLEX (A) 03/04/2025 7:42 AM CDT [facility] URINE SPECIMEN OBTAINED BY CLEAN CATCH [...] MICROBIOLOGY - GENERAL ORDERA BLES Final Result [facility] [address] [place] [address], [place] [phone] [facility] [place] [address], [place] * (ABNORMAL) URINALYSIS AUTO DIP (03/01/2025 3:00 PM CDT) Only the most recent of2 resultswithin the time period is included. SPECIMEN TYPE URINE CLEAN CATCH 03/01/2025 3:03 PM CDT [facility] COLOR (U) YELLOW 03/01/2025 3:10 PM CDT [facility] TRANSPARENCY CLOUDY 03/01/2025 3:10 PM CDT [facility] SPECIFIC GRAVITY (U) 1.025 1.001 - 1.030 03/01/2025 3:10 PM CDT [facility] U PH 5.5 5.0 - 9.0 03/01/2025 3:10 PM CDT [facility] LEUKOCYTES (U) MODERATE(A) NEGATIVE 3:10 PM CDT [facility] NITRITES POSITIVE(A) NEGATIVE 03/01/2025 3:10 PM CDT [facility] PROTEIN RANDOM (U) 100(H) <30 MG/DL 03/01/2025 3:10 PM CDT [facility] GLUCOSE (U) NEGATIVE NEGATIVE MG/DL 03/01/2025 3:10 PM CDT [facility] KETONES MG/DL (U) NEGATIVE NEGATIVE MG/DL 03/01/2025 3:10 PM CDT [facility] UROBILINOGEN 0.2(A) NEGATIVE MG/DL 03/01/2025 3:10 PM CDT [facility] BILIRUBIN (U) NEGATIVE NEGATIVE MG/DL 03/01/2025 3:10 PM CDT [facility] BLOOD (U) MODERATE(A) NEGATIVE 03/01/2025 3:10 PM CDT [facility] URINE SPECIMEN OBTAINED BY CLEAN CATCH PROCEDURE / Unknown 03/01/2025 3:00 PM CDT us Dominga Cee DO URINE ORDERABLES Final Result [facility] [place] [address], [place] * STREP A RAPID (03/01/2025 3:00 PM CDT) SPECIMEN TYPE THROAT 03/01/2025 3:[address] [facility] RAPID STREP TEST NEGATIVE NEGATIVE 03/01/2025 3:[address] [facility] STRUCTURE OF ANTERIOR PORTION OF NECK / Unknown 03/01/2025 3:00 PM CDT us Dominga Cee DO MICROBIOLOGY - GENERAL ORDERA BLES Final Result [facility] [address] [place] [address], [place] from Last [address] [place] [address] [place] [address] Care Teams Greens Tier Relationship Specialty Start Date End Date Harley Campos MD [address] [phone] PCP - General FAMILY PRACTICE 02/16/24
--- OUTSIDE RECORDS SUMMARY | 2025-03-10 00:10 | XMS_ITS | Referral Summary ---
Author Organization [address] Address [address] [place] [address] Care Team Providers Care Assembly Line Machine Operator Name Role Phone Radha Fermin Primary Care Provider [phone] Allergies No known active allergies Medications aspirin [...] on file Legal Sex Female 8:04 PM EMERGENCY CARE ATTENDANT Gender Identity Not on file Sexual Orientation [...] MAMMOGRAM BILATERAL W THEO 11/07/2019 3:26 PM EMERGENCY CARE ATTENDANT from Last 3 Months or Most Recently Relevant to Health Maintenance Results * Screening Mammogram Bilateral W Theo (11/07/2019 3:26 PM EMERGENCY CARE ATTENDANT) Anatomical Region Laterality Modality Breast Bilateral Mammography 11/07/2019 3:49 PM EMERGENCY CARE ATTENDANT Narrative 11/11/2019 8:09 AM EMERGENCY CARE ATTENDANT Patient Name: CHALINO AUSTIN Dr: Yanique Walker CNP, D.O.B: 1965 Exam Date: 11/07/19 1526 Age: 54 Sex: Female MR#: [id number] Loc: [facility]#: [id number] RADIOLOGY REPORT Order #[id number] [facility] Marisol Bilat Screening 3D Signed [...] made to exam dated: 02/16/2018 mammogram - [place]. BREAST TISSUE: There are scattered areas of [...] age 40, based on guidelines of the [place] [employer] (ACR Practice Parameter for the Performance of Screening and Diagnostic Mammography) and [place] [employer]. For women with an elevated risk of breast cancer, please refer to the ACR Practice Parameter for specific screening recommendations. The patient will be entered into a reminder system with a target due date of 1 year for her next screening exam. Electronically signed by: Julian Hastings rl/[email or web address]:11/11/2019 08:09:38 Pv Design And Installation Technician: Crys URIBE (Perfecto)(Krzysztof), [facility] letter sent: Normal Exam Reading location: BI-RADS: 2 Benign REPORT ELECTRONICALLY SIGNED IN OTHER VENDOR SYSTEM Resulting Agency Comment O Procedure Note Julian Toro MD - 11/11/2019 Patient Name: CHALINO AUSTIN Dr: Yanique Walker CNPOGonzalezB: 1965 Exam Date: 11/07/19 1526 Age: 54 Sex: Female MR#: [id number] Loc: RADIOLOGY REPORT Order #[id number] [facility] Marisol Bilat Screening 3D Signed [...] is made to exam dated: 02/16/2018 mammogram -[place]. BREAST TISSUE: There are scattered areas of [...] age 40, based on guidelines of the [place] [employer] (ACR Practice Parameter for the Performance of Screening and Diagnostic Mammography) and [place] [employer]. For women with an elevated risk of breast cancer, pleaserefer to the ACR Practice Parameter for specific screening recommendations. The patient will be entered into a reminder system with a target due dateof 1 year for her next screening exam. Electronically signed by: Julian Hastings rl/[email or web address]:11/11/2019 08:09:38 Pv Design And Installation Technician: Crys Kumar)(Krzysztof), [facility] letter sent: Normal Exam Reading location: BI-RADS: 2 Benign REPORT ELECTRONICALLY SIGNED IN OTHER VENDOR SYSTEM Yanique Walker RETAIL MERCHANDISER TECHNICIAN IMG MAMMO PROCEDURES Final Result from Last 3 Months or Most Recently Relevant to Health Maintenance Insurance [facility] Care Teams Assembly Line Machine Operator Relationship Specialty Start Date End Date Radha Fermin PA [address] [place] [address] PCP - General Physician Patient Day Coordinator 05/27/21
--- OUTSIDE RECORDS SUMMARY | 2025-03-10 00:10 | XMS_ITS | Continuity of Care Document ---
Author Organization [facility] Address [address] [facility] [place] [address] Phone Care Team Providers Care Asset Protection Professional Name Role Phone Zeeshan Earl PA-C Unavailable Unavailable Allergies, Adverse Reactions, Alerts Substance Reaction Status Criticality No Known Allergies Active No Inform ation Medications Medication Instructions Dosage Effective Dates (start - stop) Status Comments cefdinir 300 mg capsule take 1 capsule by mouth twice daily - Active ASPIRIN (unknown strength) Not Available - Active VITAMIN D3 (unknown strength) Not Available - Active ATORVASTATIN CALCIUM (unknown strength) Not Available - Active FLUTICASONE PROPIONATE (unknown strength) Not Available - Active PROTONIX (unknown strength) Not Available - Active PROPRANOLOL HCL (unknown strength) Not Available - Active Procedures Procedure Date Decadron Dexamethasone sodium phos Per 1 Mg Inj THER/PROPH/DIAG INJ, SC/IM OFFICE/OUTPATIENT VISIT, EST OFFICE/OUTPATIENT VISIT, EST COVID 19 OFFICE/OUTPATIENT VISIT, NEW Results Test Name Date and Time Measure Units Reference Range Abnormal Flag Status Commen ts Panel Description: BinaxNOW COVID-19 Ag Card Fi nal BinaxNOW COVID-19 Ag Card 11:00:00 Negative N Final Advance Directives Directive Yes / No Effective Date File Name No Information Encounters Encounter Description Practice Location Reason(s) For Visit Diagnoses Date Provider Providers Copied on Encounter OFFICE/OUTPAT IENT VISIT, EST [facility], [address] [facility] [place], [id number], [place] tel:[phone] [facility] cold symptoms (chief complaint) Suspected exposure to other viral communicable diseaseSinusitis 1 Mady Byers. [address] [place] [address], [address], [place]. tel:[phone] Referring Provider: Zeeshan Earl, [address] [place] [address], [id number]. tel:[phone] OFFICE/OUTPAT IENT VISIT, [facility], [address] [place] [address], [id number], tel:[phone] [facility] Encounter for screening for other viral diseases 0 Mady Byers. [address] [place] [address], [address], [place]. tel:[phone] Referring Provider: Zeeshan Earl, [address] [place] [address], [address]. tel:[phone] OFFICE/OUTPAT IENT VISIT, [facility], [address] [place] [address], [id number], [place] tel:[phone] [facility] covid exposure (chief complaint) Encounter for screening for other viral disease 0 Mady Byers. [address] [place] [address], [address], [place]. tel:[phone] Referring Provider: Zeeshan Earl, [address] [place] [address], [address]. tel:[phone] Family History Family Member Type Diagnosis Age At Onset No Information Payers Payer name Insurance type Covered republican ID Alonso lakhani(sAyse Sorensen [facility] [id number] CI [id number] Social History Type Description Quantity Date Captured Comments Alcohol Use Details Unknown Caffeine Use Details Unknown Tobacco Use Status Moderate cigarette smoker (10-19 cigs/day) Smoking Status Heavy tobacco smoker Smoking Tobacco Use Details Cigarette: Age Started: 13, Years Used 42 Cigarette: 0.5 Packs per day, Pack Year: 21.5 Sex Female Vital Signs Date / Time: Height Weight BMI Pulse Rate Blood Pressure Temperature Respiratory Rate Body Surface Area Head Circumference Head Circ. Percentile Wt./[place]. Percentile BMI percentile Pulse Ox Inhaled Ox 11:00 AM 67.00 in 50.802 kg (112.00 lbs) 17.5 4 kg/m eter (2) 81 /min 124/78 mm[Hg] 98.70 F 18 /min 97 % 21 % Chief Complaint And Reason For Visit From encounter dated '09/11/2021 10:30'. cold symptoms (chief complaint). Description: Onset: 3 Days. The severity of the problem is mild. The problem has worsened. The symptoms are persistent. Symptoms are associated with history of allergies, sick family member and smoker. Associated symptoms include cough, headache, myalgia, nasal congestion and rhinitis. Pertinent negatives include chills/rigors, dyspnea, facial pain, fatigue, fever, hemoptysis, otalgia, pharyngitis, postnasal drainage, rash, sinus pressure, sputum, tooth pain or wheezing. Reason For Referral Reason For Referral No Information History Of Present Illness Encounter Date Complaint History Of Prese nt Illness cold symptoms Onset: 3 Days. T he severity of the problem is mild. The problem has worsened. The symptoms are persistent. Symptoms are associated with history of allergies, sick family member and smoker. Associated symptoms include cough, headache, myalgia, nasal congestion and rhinitis. Pertinent negatives include chills/rigors, dyspnea, facial pain, fatigue, fever, hemoptysis, otalgia, pharyngitis, postnasal drainage, rash, sinus pressure, sputum, tooth pain or wheezing. covid exposure Pt exposed to [place] VID via contact with her son this week, currently asymptomatic Functional Status Date Functional Assessmen t No Information Instructions Date Instruction Additional Infor mation Negative COVID test Related to S uspected exposure to other viral communicable disease 10mg IM decadronCefi ndirContinue flonase, follow up with PCP back home if symptoms persist Provider ordered IM dexamethasone. Injection area cleaned using a new isopropyl alcohol preparation pad prior to administration. 10 mg Decadron injected IM into right deltoid muscle using aseptic technique and a 25 gauge 1 needle. Needle removed intact. Injection site covered with a new, clean, adhesive bandage. Patient tolerated without complaint. Related to Sinusitis Pt exposed to COVID this week via son, who just received positive result today, asymptomatic. Will start 14 day quarantine. 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 Pt will think about it and let us know Related to Encounter for screening for other viral disease Assessments Type Assessment Date assessment Suspected exposure to other deion l communicable disease assessment Sinusitis impression Discussed smoking cessation Mental Status Date Cognitive Assessment Orientation - [place] ed to time, place, person, situation. Patient Care Teams Name Effective Dates (start - stop) Status Members No Information
[2025-03-10] MEDS: LACTATED RINGERS 1,000 ML 30 ML IV CONT (06:30)
--- NOTE | 2025-03-10 06:43 | WPDHPUPDATE1 ---
History and Physical Update Update Date/Time: 03/10/25 06:43 History and Physical has been reviewed, including an updated exam of the patient. There are NO changes in the patient's condition. Risks, benefits, and alternatives have been discussed and questions answered. Patient agrees to proceed with procedure.
--- NOTE | 2025-03-10 07:20 | WPDANESEPPF ---
Anes - Initial Pre Proc Eval Procedure: Operation Date: 03/10/25 07:30 Proposed Procedures p Left Extracorporeal Shock Wave Lithotripsy - Claude Zuleta MD Date/Time: 03/10/25 07:20 Surgeon: Claude Zuleta MD Pre Op Diagnosis: left kidney stone Patient Data Age: 60 Gender: F Height: 1.7 m Weight: 95.5 kg Last Vital Signs Temp 97.1 F L 03/10/25 06:42 Pulse 80 03/10/25 06:42 Resp 14 03/10/25 06:42 BP 150/81 H 03/10/25 06:42 Pulse Ox 96 03/10/25 06:42 O2 Del Method Room Air 03/10/25 06:42 Allergies Allergy/AdvReac Type Severity Reaction Status Date / Time nitrofurantoin Allergy Intermediate Rash Verified 03/10/25 06:40 Home Medications Medication Instructions Recorded Confirmed Type aspirin 81 mg tablet,delayed 81 mg PO DAILY 03/01/25 03/01/25 History release atorvastatin 40 mg tablet 40 mg PO HS 03/01/25 03/01/25 History clobetasol 0.05 % topical cream 1 applic topical .bi weekly PRN 03/01/25 03/01/25 History rash cranberry 500 mg capsule 500 mg PO DAILY 03/01/25 03/01/25 History estradiol 0.01% (0.1 mg/gram) 1 appful vaginal .bi-weekly 03/01/25 03/01/25 History vaginal cream modafinil 200 mg tablet 200 mg PO DAILY 03/01/25 03/01/25 History multivitamin-ferrous 1 tablet PO DAILY 03/01/25 03/01/25 History fumarate-folic acid 18 mg-400 mcg tablet (Centrum Women) omega 9-qrr-jzl-fish oil 1,200 mg 1 cap PO DAILY 03/01/25 03/01/25 History (144 mg-216 mg) capsule (Fish Oil) omeprazole 20 mg capsule,delayed 20 mg PO DAILY 03/01/25 03/01/25 History release propranolol 80 mg tablet 80 mg PO DAILY 03/01/25 03/10/25 History vibegron 75 mg tablet (Gemtesa) 75 mg PO DAILY 03/01/25 03/01/25 History cetirizine 10 mg tablet (24Hour 10 mg PO DAILY 03/07/25 03/07/25 History Allergy) Patient hx anesthesia problems: none Family hx anesthesia problems: none Results Review: All pre-operative results and documents have been reviewed as part of the pre-operative evaluation. [facility] Social History Social History Years smoked: 50 Smoking status: Current every day smoker Tobacco type: cigarettes Alcohol intake: current Living arrangements: with family Spiritual care concerns: No Anes - Eval Final PreProcedure Day of Procedure 03/10/25 07:20 Patient weight: obese Heart: regular rate and rhythm Lungs: clear to auscultation Airway: Mallampati scale class II Neurological: alert and oriented Last oral intake: >/= 8 hours ASA classification: III Emergent: no Anesthetic plan: proceed Anesthesia type and monitoring: general LMA and standard monitoring Results Review: All pre-operative results and documents have been reviewed as part of the pre-operative evaluation. Informed Consent: The patient's anesthetic plan and its attendant risks and benefits were discussed with the patient/family/POA. Questions were solicited and answers provided to the satisfaction of the patient/family/POA.
[2025-03-10] MEDS: ceFAZolin 2 GM/D5W 50 ML 2 GM/50 ML BAG IVPB (07:30)
[2025-03-10] MEDS: KETOROLAC 30 MG/ML VIAL (*BKC) IV PUSH (08:03)
--- NOTE | 2025-03-10 08:06 | W.PM.PROC2 ---
Procedure Note - Detailed Date of Procedure 03/10/25 Pre-op Diagnosis Left kidney stone Post-op Diagnosis Same Procedure Performed Left ESWL Surgeon Claude Zuleta MD Anesthesia General Description of Procedure The patient was brought to the operative suite where she was placed in the supine position on the Dornier lithotripsy table. The focal point of the lithotripter was placed at a 1cm left renal calculus. A total of 2500 shocks were delivered at a power setting of 4. There appeared to be good fragmentation of the stone. The patient tolerated the procedure well and was taken to the recovery room in good condition.
== END 2025-03-10 09:38 | disposition home or self-care (01) ==
PROVIDERS: Visit Provider Urology
PROC: (CPT 50590; principal; 2025-03-10 07:30)
DX: N20.0 Calculus of kidney (principal)
CPT/HCPCS: 50590; 74018; J0690; J1885; J2003; J2250; J2405; J2704; J3010; J7120

== ENCOUNTER 2025-04-01 07:47 | Outpatient (CLI) | payer OTHER, SELFPAY ==
--- NOTE | ~2025-04-01 | XR_ITS ---
EXAM: XR abdomen/kub 1V DATE: 04/01/2025 08:11 HISTORY: N20.0 - Calculus of kidney . COMPARISON: 03/10/2025; CT abdomen pelvis 12/26/2024. FINDINGS: Streaky bibasilar opacities. Left costophrenic angle blunting. Enlarged liver. Normal jorgito l gas pattern. 7 mm calcification in the right lower pole, stable. 12 mm calcification over the left inferior and medial kidney, which has shifted position since the prior study. Mild lumbar degenerativ e disc disease. Pelvic phleboliths. IMPRESSION: Subsegmental bibasilar atelectasis/consolidation. 12 mm left lower pole calcification which has changed position and may reside in the left UPJ. Stable right nephrolithiasis. Consider CT abdomen pelvis, particularly if there are symptoms of renal colic . Hepatomegaly. Reviewed, dictated and finalized at location K. IMPRESSION: Subsegmental bibasilar atelectasis/consolidation. 12 mm left lower pole calcification which has changed position and may reside i n the left UPJ. Stable right nephrolithiasis. Consider CT abdomen pelvis, parti cularly if there are symptoms of renal colic. Hepatomegaly.
--- OUTSIDE RECORDS SUMMARY | 2025-04-01 07:50 | XMS_ITS | Continuity of Care Document ---
Author Organization [facility] Address [address] [facility] [place] [address] Phone Care Team Providers Care Freezer Laboratory Technician Name Role Phone Zeeshan Earl PA-C Unavailable [...] Copied on Encounter OFFICE/OUTPAT IENT VISIT, EST [facility], [address] [facility] [place], [id number], [place] tel:[phone] [facility] cold symptoms (chief complaint) Suspected exposure to other viral communicable diseaseSinusitis 1 Mady Byers. [address] [place] [address], [id number], [place]. tel:[phone] Referring Provider: Zeeshan Earl, [address] [place] [address], [id number]. tel:[phone] OFFICE/OUTPAT IENT VISIT, Formerly [facility], [address] [place] [address], [id number], tel:[phone] [facility] Encounter for screening for other viral diseases 0 Mady Byers. [address] [place] [address], [address], [place]. tel:[phone] Referring Provider: Zeeshan Earl, [address] [place] [address], [address]. tel:[phone] OFFICE/OUTPAT IENT VISIT, [facility], [address] [place] [address], [id number], [place] tel:[phone] [facility] covid exposure (chief complaint) Encounter for screening for other viral disease 0 Mady Byers. [address] [place] [address], [address], [place]. tel:[phone] Referring Provider: eZeshan Earl, [address] [place] [address], [address]. tel:[phone] Family History Family Member Type Diagnosis Age At Onset No Information Payers Payer name Insurance type Covered libertarian ID Alonso lakhani(sAyse Sorensen [facility] [id number] CI [id number] Social History Type Description Quantity Date Captured [...] day quarantine. Testing is optional, pt can correctional casework specialist, can start quarantine period and test if [...] Mental Status Date Cognitive Assessment Orientation - [place] ed to time, place, person, situation. Patient Care Teams Name Effective Dates (start - stop) Status Members No Information
--- OUTSIDE RECORDS SUMMARY | 2025-04-01 07:50 | XMS_ITS | Clinical Summary ---
Author Organization [facility] Address [address] Attn: Epic Prelude ADT DAPHNE OREILLY [address] Care Team Providers Care Correction Worker Name Role Phone Unavailable Primary Care Provider Unavailabl e Allergies No known active allergies Medications clobetasoL (TEMOVATE) 0.05 % Cream APPLY TO RASH ON BODY TWO TIMES A DAY NEEDED 60 Gram 9 03/20/2022 7:54 PM CDT 1 Active benzonatate (TESSALON) 100 mg capsule Take 1 capsule (100 mg) by mouth every 8 (eight) hours 21 Capsule 09/03/2022 12:58 PM LEADERSHIP PROGRAM ASSOCIATE 2 Active modafiniL (PROVIGIL) 200 mg Tablet Take 2 tablets (400 mg total) by mouth every morning 60 Tablet 5 04/20/2023 10:40 AM CDT 3 Active estradioL (Estrace) 0.01% (0.1 mg/g) vaginal cream Insert 1 gram vaginally twice weekly 42.5 Gram 4 09/21/2023 12:43 PM LEADERSHIP PROGRAM ASSOCIATE 3 Active oxyBUTYnin (DITROPAN) 5 mg tablet Take 1 Tablet (5 mg) by mouth 2 times daily. 60 Tablet 11 09/21/2023 12:43 PM LEADERSHIP PROGRAM ASSOCIATE 3 Active ondansetron (ZOFRAN ODT) 4 mg [...] daily. 90 Tablet 1 11/11/2024 3:22 PM LEADERSHIP PROGRAM ASSOCIATE 4 Active trimethoprim (TRIMPEX) 100 mg tablet [...] Tablet 03/01/2025 3:46 PM CDT 5 Active predniSONE (DELTASONE) 20 mg tablet Take 2 tablets by mouth daily for 5 days, then take 1 tablet by mouth daily for 5 days 15 Tablet 03/07/2025 8:49 AM CDT 5 Active HYDROcodone-beulah taminophen (NORCO) 5-325 mg tablet Take 1 to 2 TABLETS by mouth every 6 hours As Needed for pain 20 Tablet 03/10/2025 11:22 AM CDT 5 Active nitrofurantoin (MACROBID) 100 mg capsule Take 1 capsule (100 mg total) by mouth 2 (two) times daily for 5 days. 10 Capsule 03/01/2025 3:46 PM CDT 5 03/06/20 25 famotidine (PEPCID) 40 mg tablet Take 1 tablet (40 mg total) by mouth daily for 15 days. 15 Tablet 03/07/2025 8:49 AM CDT 5 03/22/20 25 Encounters Date Type Department Care Team [...]
--- OUTSIDE RECORDS SUMMARY | 2025-04-01 07:50 | XMS_ITS | Patient Health Record ---
Author Organization [facility] Address [address] [place], [place] [id number] Care Team Providers Care Director Of Infection Control Name Role Phone MAHOGANY AGGARWAL Unavailable [phone] Sharmaine Campos Unavailable Unavailable Allergies No Known Allergies Reason For Referral Reason REFERRAL ( E STABLISHED VISITS ) Diagnosis 1 Plantar fascial fibr omatosis (M72.2) Referred Organization [facility] Referred Provider MAHOGANY AGGARWAL Referred Address [address],[place], [place],[id number], Referred Provider Specialty Podiatry Referral Priority Routine [...] Location Date Provider Diagnosis [facility] [address] [place], [place] [id number] 04/27/2024 MAHOGANY SNOOK Plantar fascial fibromatosis M72.2 ; Calcaneal spur, left foot M77.32 and Left foot pain M79.672 [facility] [address] [place], [place] [id number] 05/18/2024 MAHOGANY SNOOK Plantar fascial fibromatosis M72.2 ; Calcaneal spur, left foot M77.32 and Left foot pain M79.672 [facility] [address] [place], [place] [id number] 06/08/2024 MAHOGANY SNOOK Plantar fascial fibromatosis M72.2 ; Calcaneal spur, left foot M77.32 and Left foot pain M79.672 [facility] [address] [place], [place] [id number] 08/02/2024 MAHOGANY SNOOK Plantar fascial fibromatosis M72.2 ; Calcaneal spur, left foot M77.32 and Left foot pain M79.672 [facility] [address] [place], [place] [id number] 08/23/2024 MAHOGANY SNOOK Plantar fascial fibromatosis M72.2 ; Calcaneal spur, left foot M77.32 and Left foot pain M79.672 [facility] [address] [facility] [address] [place], [place] [id number] 08/29/2024 MAHOGANY SNOOK Assessments Encounter Date Diagnosis [...] Insured Coverage Start Date Coverage End Date [facility] [address] [place] [address] [id number] SHARMAINE AUSTIN Spouse - patient is the spouse of the insured Medical (General) History Medical History History ICD Code acid reflux kidney stones hepatitis hemorrhoids eczema psoriasis hypersomnolence urinary incontinence
--- OUTSIDE RECORDS SUMMARY | 2025-04-01 07:50 | XMS_ITS | Clinical Summary ---
Author Organization [address] Address [address] [place] [address] Care Team Providers Care Elementary Classroom Teacher Name Role Phone Radha Fermin Primary Care Provider [phone] Allergies No known active allergies Medications aspirin [...] on file Legal Sex Female 8:04 PM TOW MOTOR OPERATOR Gender Identity Not on file Sexual Orientation [...] 3:35 PM CDT Height 170.2 cm (5' 7) 06/09/2024 3:35 PM CDT Body Mass Index [...] MAMMOGRAM BILATERAL W THEO 11/07/2019 3:26 PM TOW MOTOR OPERATOR from Last 3 Months or Most Recently Relevant to Health Maintenance Results * Screening Mammogram Bilateral W Theo (11/07/2019 3:26 PM TOW MOTOR OPERATOR) Anatomical Region Laterality Modality Breast Bilateral Mammography 11/07/2019 3:49 PM TOW MOTOR OPERATOR Narrative 11/11/2019 8:09 AM TOW MOTOR OPERATOR Patient Name: CHALINO AUSTIN Dr: Yanique Walker CNP, D.O.B: 1965 Exam Date: 11/07/19 1526 Age: 54 Sex: Female MR#: [id number] Loc: RADIOLOGY REPORT Order #[id number] [facility] Marisol Bilat Screening [...] made to exam dated: 02/16/2018 mammogram - [place]. BREAST TISSUE: There are scattered areas of [...] age 40, based on guidelines of the [place] [employer] (ACR Practice Parameter for the Performance of Screening and Diagnostic Mammography) and [place] [employer]nec[employer]. For women with an elevated risk of breast cancer, please refer to the ACR Practice Parameter for specific screening recommendations. The patient will be entered into a reminder system with a target due date of 1 year for her next screening exam. Electronically signed by: Julian Hastings rl/ebonie:11/11/2019 08:09:38 Criminal Defense Attorney: Crys Sanchez (R)), [facility] letter sent: Normal Exam Reading location: BI-RADS: 2 Benign REPORT ELECTRONICALLY SIGNED IN OTHER VENDOR SYSTEM Resulting Agency Comment O Procedure Note Julian Toro MD - 11/11/2019 Patient Name: NORMANCHALINO Dr: Yanique Walker CNP, D.O.B: 1965 Exam Date: 11/07/19 1526 Age: 54 Sex: Female MR#: [id number] Loc: RADIOLOGY REPORT Order #[id number] [facility] Marisol Bilat Screening [...] is made to exam dated: 02/16/2018 mammogram [place]. BREAST TISSUE: There are scattered areas of [...] age 40, based on guidelines of the [place] [employer] (ACR Practice Parameter for the Performance of Screening and Diagnostic Mammography) and [employer]. For women with an elevated risk of breast cancer, pleaserefer to the ACR Practice Parameter for specific screening recommendations. The patient will be entered into a reminder system with a target due dateof 1 year for her next screening exam. Electronically signed by: Julian Hastings rl/ebonie:11/11/2019 08:09:38 Criminal Defense Attorney: Crys Kumar)(Krzysztof), [facility] letter sent: Normal Exam Reading location: BI-RADS: 2 Benign REPORT ELECTRONICALLY SIGNED IN OTHER VENDOR SYSTEM Yanique Walker NP IMG MAMMO PROCEDURES Final Result from Last 3 Months or Most Recently Relevant to Health Maintenance Insurance [facility] Care Teams Elementary Classroom Teacher Relationship Specialty Start Date End Date Radha Fermin PA [address] [place], [place] [address] PCP - General Physician Senior Cost Estimator 05/27/21
--- OUTSIDE RECORDS SUMMARY | 2025-04-01 07:50 | XMS_ITS | Clinical Summary ---
Author Organization [facility] Address [address] [place] [address] Care Team Providers Care Credit Rating Checker Name Role Phone [address] Primary Care Prov ider Source Comments [facility] [facility],non-owned Affiliates and Associated Physician Practices is amultiple site organization consisting of ambulatory clinics and hospital sitesin [place], [place], [place] and [place]. This disclosure is being madepursuant to the Care Everywhere program and may not contain all information available regarding this patient. Last updated 18.[facility] [employer] Allergies No known active allergies Medications * [...] Relation Name Comments Hypertension Mother Cancer Other [place] Other Relation Name Status Comments Mother Other [...] on file Legal Sex Female 2:04 PM COMMERCIAL MAINTENANCE TECHNICIAN Gender Identity Not on file Sexual Orientation Not on file Last Filed Vital Signs Vital Sign Reading Time Taken Comments Blood Pressure 114/62 09/02/2012 12:56 PM COMMERCIAL MAINTENANCE TECHNICIAN Pulse 89 09/02/2012 12:56 PM COMMERCIAL MAINTENANCE TECHNICIAN Temperature 36.9 C (98.4 F) 09/02/2012 12:56 PM COMMERCIAL MAINTENANCE TECHNICIAN Respiratory Rate 20 09/02/2012 12:56 PM COMMERCIAL MAINTENANCE TECHNICIAN Oxygen Saturation 97% 09/02/2012 12:56 PM COMMERCIAL MAINTENANCE TECHNICIAN Inhaled Oxygen Concentration - - Weight 83.9 kg (185 lb) 09/01/2012 7:20 AM COMMERCIAL MAINTENANCE TECHNICIAN Height 170.2 cm (5' 7) 09/01/2012 7:20 AM COMMERCIAL MAINTENANCE TECHNICIAN Body Mass Index 28.98 09/01/2012 7:20 AM COMMERCIAL MAINTENANCE TECHNICIAN Plan of Treatment Health Maintenance Due Date [...] 8:35 AM 09/01/2012 11:54 AM Care Teams Credit Rating Checker Relationship Specialty Start Date End [facility] [address] [place], [place] [address] PCP - General 09/27/19
--- OUTSIDE RECORDS SUMMARY | 2025-04-01 07:50 | XMS_ITS | Referral Summary ---
Author Organization [address] Address [address] [place] [address] Care Team Providers Care Assistant Store Manager Name Role Phone Radha Fermin Primary Care Provider [phone] Allergies No known active allergies Medications aspirin [...] on file Legal Sex Female 8:04 PM FILTER TANK TENDER Gender Identity Not on file Sexual [...] MAMMOGRAM BILATERAL W THEO 11/07/2019 3:26 PM FILTER TANK TENDER from Last 3 Months or Most Recently Relevant to Health Maintenance Results * Screening Mammogram Bilateral W Theo (11/07/2019 3:26 PM FILTER TANK TENDER) Anatomical Region Laterality Modality Breast Bilateral Mammography 11/07/2019 3:49 PM FILTER TANK TENDER Narrative 11/11/2019 8:09 AM FILTER TANK TENDER Patient Name: CHALINO AUSTIN Dr: Yanique Walker CNP, D.O.B: 1965 Exam Date: 11/07/19 1526 Age: 54 Sex: Female MR#: [id number] Loc: [facility]#: [id number] RADIOLOGY REPORT Order #[id number] [facility] Marisol Bilat Screening 3D Signed - [...] made to exam dated: 02/16/2018 mammogram - [place]. BREAST TISSUE: There are scattered areas of [...] age 40, based on guidelines of the [place] [employer] (ACR Practice Parameter for the Performance of Screening and Diagnostic Mammography) and [employer] [employer]. For women with an elevated risk of breast cancer, please refer to the ACR Practice Parameter for specific screening recommendations. The patient will be entered into a reminder system with a target due date of 1 year for her next screening exam. Electronically signed by: Julian Hastings rl/ebonie:11/11/2019 08:09:38 Solar System Designer: Crys URIBE (Perfecto)(Krzysztof), [facility] letter sent: Normal Exam Reading location: BI-RADS: 2 Benign REPORT ELECTRONICALLY SIGNED IN OTHER VENDOR SYSTEM Resulting Agency Comment O Procedure Note Julian Toro MD - 11/11/2019 Patient Name: CHALINO AUSTIN Dr: Yanique Walker CNPOGonzalezB: 1965 Exam Date: 11/07/19 1526 Age: 54 Sex: Female MR#: [id number] Loc: RADIOLOGY REPORT Order #[id number] [facility] Marisol Bilat Screening 3D Signed - [...] is made to exam dated: 02/16/2018 mammogram -[place]. BREAST TISSUE: There are scattered areas of [...] age 40, based on guidelines of the [employer] [employer] (ACR Practice Parameter for the Performance of Screening and Diagnostic Mammography) and [employer] [employer]. For women with an elevated risk of breast cancer, pleaserefer to the ACR Practice Parameter for specific screening recommendations. The patient will be entered into a reminder system with a target due dateof 1 year for her next screening exam. Electronically signed by: Julian Hastings rl/ebonie:11/11/2019 08:09:38 Solar System Designer: Crys Kumar)(Krzysztof), [facility] letter sent: Normal Exam Reading location: BI-RADS: 2 Benign REPORT ELECTRONICALLY SIGNED IN OTHER VENDOR SYSTEM Yanique Walker ARCHAEOLOGIST IMG MAMMO PROCEDURES Final Result from Last 3 Months or Most Recently Relevant to Health Maintenance Insurance [employer] [facility] Care Teams Assistant Store Manager Relationship Specialty Start Date End Date Radha Fermin PA [address] [place] [address] PCP - General Physician Crossing Supervisor 05/27/21
== END 2025-04-01 07:48 | disposition home or self-care (01) ==
PROVIDERS: Visit Provider Urology
DX: N20.0 Calculus of kidney (principal); R16.0 Hepatomegaly, not elsewhere classified
CPT/HCPCS: 74018

== ENCOUNTER 2025-05-08 16:43 | Outpatient (CLI) | payer OTHER, SELFPAY ==
--- OUTSIDE RECORDS SUMMARY | 2025-05-08 16:46 | XMS_ITS | Clinical Summary ---
Author Organization [email or web address] Address [address] [place] [address] Care Team Providers Care Executive Kitchen Manager Name Role Phone [address] Primary Care Prov ider Source Comments [email or web address],non-owned Affiliates and Associated Physician Practices is amultiple site organization consisting of ambulatory clinics and hospital sitesin [place], [place], [place] and [place]. This disclosure is being madepursuant to the Care Everywhere program and may not contain all information available regarding this patient. Last updated 18.[email or web address] Allergies No known active allergies Medications * [...] Relation Name Comments Hypertension Mother Cancer Other OR Other Relation Name Status Comments Mother Other [...] on file Legal Sex Female 2:04 PM ANIMAL ECOLOGIST Gender Identity Not on file Sexual Orientation Not on file Last Filed Vital Signs Vital Sign Reading Time Taken Comments Blood Pressure 114/62 09/02/2012 12:56 PM ANIMAL ECOLOGIST Pulse 89 09/02/2012 12:56 PM ANIMAL ECOLOGIST Temperature 36.9 C (98.4 F) 09/02/2012 12:56 PM ANIMAL ECOLOGIST Respiratory Rate 20 09/02/2012 12:56 PM ANIMAL ECOLOGIST Oxygen Saturation 97% 09/02/2012 12:56 PM ANIMAL ECOLOGIST Inhaled Oxygen Concentration - - Weight 83.9 kg (185 lb) 09/01/2012 7:20 AM ANIMAL ECOLOGIST Height 170.2 cm (5' 7) 09/01/2012 7:20 AM ANIMAL ECOLOGIST Body Mass Index 28.98 09/01/2012 7:20 AM ANIMAL ECOLOGIST Plan of Treatment Health Maintenance Due Date [...] season) 2024 DEPRESSION SCREENING 10/26/2024 INFLUENZA VACCINE (#1) 2025 Respiratory Syncytial Virus (RSV) Vaccine Pt: [...] 8:35 AM 09/01/2012 11:54 AM Care Teams Executive Kitchen Manager Relationship Specialty Start Date End Date [facility] [address], [place] [address] PCP - General 09/27/19
--- OUTSIDE RECORDS SUMMARY | 2025-05-08 16:47 | XMS_ITS | Referral Summary ---
Author Organization [address] Address [address] [place] [address] Care Team Providers Care Technical Architect Name Role Phone Radha Fermin Primary Care Provider [phone] Allergies No known active allergies Medications aspirin [...] on file Legal Sex Female 8:04 PM NURSE MIDWIFE Gender Identity Not on file Sexual Orientation [...] MAMMOGRAM BILATERAL W THEO 11/07/2019 3:26 PM NURSE MIDWIFE from Last 3 Months or Most Recently Relevant to Health Maintenance Results * Screening Mammogram Bilateral W Theo (11/07/2019 3:26 PM NURSE MIDWIFE) Anatomical Region Laterality Modality Breast Bilateral Mammography 11/07/2019 3:49 PM NURSE MIDWIFE Narrative 11/11/2019 8:09 AM NURSE MIDWIFE Patient Name: PATRICIA AUSTIN Dr: Yanique Walker CNP, D.O.B: 1965 Exam Date: 11/07/19 1526 Age: 54 Sex: Female MR#: [id number] Loc: [facility]#: [id number] RADIOLOGY REPORT Order #[id number] [facility] Marisol Bilat Screening 3D Signed [...] made to exam dated: 02/16/2018 mammogram - [place]. BREAST TISSUE: There are scattered areas of [...] age 40, based on guidelines of the [employer] (ACR Practice Parameter for the Performance of Screening and Diagnostic Mammography) and [employer]. For women with an elevated risk of breast cancer, please refer to the ACR Practice Parameter for specific screening recommendations. The patient will be entered into a reminder system with a target due date of 1 year for her next screening exam. Electronically signed by: Julian Hastings rl/ebonie:11/11/2019 08:09:38 Structural Steel Worker: Crys URIBE (Perfecto)(Krzysztof), [facility] letter sent: Normal Exam Reading location: BI-RADS: 2 Benign REPORT ELECTRONICALLY SIGNED IN OTHER VENDOR SYSTEM Resulting Agency Comment O Procedure Note Julian Toro MD - 11/11/2019 Patient Name: PATRICIA AUSTIN Dr: Yanique Walker CNPOGonzalezB: 1965 Exam Date: 11/07/19 1526 Age: 54 Sex: Female MR#: [id number] Loc: RADIOLOGY REPORT Order #[id number] [facility] Marisol Bilat Screening 3D Signed [...] is made to exam dated: 02/16/2018 mammogram -[place]. BREAST TISSUE: There are scattered areas of [...] age 40, based on guidelines of the [employer] (ACR Practice Parameter for the Performance of Screening and Diagnostic Mammography) and [employer]. For women with an elevated risk of breast cancer, pleaserefer to the ACR Practice Parameter for specific screening recommendations. The patient will be entered into a reminder system with a target due dateof 1 year for her next screening exam. Electronically signed by: Julian Hastings rl/ebonie:11/11/2019 08:09:38 Structural Steel Worker: Crys Kumar)(Krzysztof), [facility] letter sent: Normal Exam Reading location: BI-RADS: 2 Benign REPORT ELECTRONICALLY SIGNED IN OTHER VENDOR SYSTEM Yanique Walker WOVEN BLIND LOOM TENDER IMG MAMMO PROCEDURES Final Result from Last 3 Months or Most Recently Relevant to Health Maintenance Insurance [employer] [facility] Care Teams Technical Architect Relationship Specialty Start Date End Date Radha Fermin PA [address] [place] [address] PCP - General Physician Hot Dimpling Machine Operator 05/27/21
--- OUTSIDE RECORDS SUMMARY | 2025-05-08 16:47 | XMS_ITS | Encounter Summary ---
Author Organization [facility] Address [address] [place] [address] Care Team Providers Care Senior Product Development Manager Name Role Phone Radha Callaway Primary Care Provider [phone] None, Provider Primary Care Provider Harley Thrasher MD Primary Care Provider [phone] Encounter Details Date Type Department Care Team (Late st Contact Info) Description 11/15/2020 Prep for Procedure [place] Pre-Ad[facility] Testing [facility] [place], [place] [id number] Giselle Maddox MD [address] [place] [address] [place] [address] Social History Tobacco Use Types Packs/Day Years Used Date Smoking Tobacco: Every Day Cigarettes 0.5 40 Smokeless Tobacco: Never Alcohol Use Standard Drinks/Week Comments Not Currently 0 (1 standard drink = 0.6 oz pur e alcohol) 3 times year Comments No Sex and Gender Information Value Date Recorded Sex Assigned at Female 11/09/2024 10:20 AM FLIGHT ATTENDANT/INFLIGHT SUPERVISOR Legal Sex Female 4:33 PM CDT Gender Identity Not on file Sexual Orientation Not on file COVID-19 Exposure Response Date Recorded In the last month, have you been in contact with someone who was confirmed or suspected to have Coronavirus / COVID-19? No / Unsure 11/15/2020 3:07 PM FLIGHT ATTENDANT/INFLIGHT SUPERVISOR documented as of this encounter Plan of Treatment Not on file documented as of this encounter Results * PRE-SURGICAL/PRE-PROCEDURE CORONAVIRUS (COVID 19) (11/23/2020 10:30 AM FLIGHT ATTENDANT/INFLIGHT SUPERVISOR) CORONAVIRUS SARS COV 2 PCR (RESP) NOT DETECTED NOT DETECTED 11/24/2020 4:31 PM FLIGHT ATTENDANT/INFLIGHT SUPERVISOR [facility] Comment: A Not Detected (negative) [...] providers and patients using the following websites: https://www.[employer]/home/Covid-19/HCP/NAAT/fact-sheet2 https://www.[employer]/home/Covid-19/Patients/NAAT/ fact-sheet2 This test has been authorized by the FDA under an Emergency Use Authorization (EUA) for use by authorized laboratories. Due to the current public health emergency, [facility] is receiving a high volume of samples [...] about COVID-19 can be found at the [facility] website: www.C[employer]R.[employer]/Covid19. Test performed at [facility] [place] [address] [place] [address] Director: RHYS GARCIA DO,MPH FIRST TEST NO 11/23/2020 12:43 PM FLIGHT ATTENDANT/INFLIGHT SUPERVISOR [facility] EMPLOYED IN HEALTHCARE NO 11/23/2020 12:43 PM FLIGHT ATTENDANT/INFLIGHT SUPERVISOR [facility] SYMPTOMATIC DEFINED BY CDC NO 11/23/2020 12:43 PM FLIGHT ATTENDANT/INFLIGHT SUPERVISOR [facility] DATE OF SYMPTOM ONSET UNKNOWN 11/23/2020 1:15 PM FLIGHT ATTENDANT/INFLIGHT SUPERVISOR [facility] HOSPITALIZATION STATUS NO 11/23/2020 12:43 PM FLIGHT ATTENDANT/INFLIGHT SUPERVISOR [facility] PATIENT IN ICU NO 11/23/2020 12:43 PM FLIGHT ATTENDANT/INFLIGHT SUPERVISOR [facility] NO 11/23/2020 12:43 PM FLIGHT ATTENDANT/INFLIGHT SUPERVISOR [facility] NOT 11/23/2020 12:43 PM FLIGHT ATTENDANT/INFLIGHT SUPERVISOR [facility] PATIENT'S RACE WHITE OR 11/23/2020 12:43 PM FLIGHT ATTENDANT/INFLIGHT SUPERVISOR [facility] ETHNICITY NONHISPANIC 11/23/2020 12:43 PM FLIGHT ATTENDANT/INFLIGHT SUPERVISOR [facility] SOURCE (QST) NASOPHARYNGEAL SWAB 11/23/2020 12:43 PM FLIGHT ATTENDANT/INFLIGHT SUPERVISOR [facility] NASOPHARYNGEAL SWAB / Unknown 11/23/2020 10:30 AM FLIGHT ATTENDANT/INFLIGHT SUPERVISOR us Giselle Maddox MD MICROBIOLOGY - GENERAL ORDERABLE S Final Result [facility] [address] [place] [address], [facility] [address] [place] [address], documented in this encounter Visit Diagnoses Diagnosis Preop examination- Primary Preoperative examination, unspecified documented in this encounter Additional Health Concerns Infection Onset Date Last Indicated Resolved Time COVID-19 Rule Out 11/23/2020 11/23/2020 11/24/2020 4:31 PM FLIGHT ATTENDANT/INFLIGHT SUPERVISOR COVID-19 Rule Out 07/09/2021 07/09/2021 07/10/2021 11:47 AM CDT COVID-19 Rule Out 05/27/2023 05/27/2023 05/28/2023 7:24 AM CDT COVID-19 Rule Out 11/24/2023 11/24/2023 11/24/2023 6:55 PM FLIGHT ATTENDANT/INFLIGHT SUPERVISOR COVID-19 Rule Out 01/17/2024 01/17/2024 01/17/2024 4:46 PM CDT COVID-19 Rule Out 02/16/2024 02/16/2024 02/16/2024 3:01 PM CDT COVID-19 Rule Out 11/09/2024 11/09/2024 11/09/2024 11:14 AM FLIGHT ATTENDANT/INFLIGHT SUPERVISOR documented as of this encounter Care Teams Senior Product Development Manager Relationship Specialty Start Date End Date Radha Callaway PA [facility] [address] [place] [address] PCP - General PHYSICIAN KEYPUNCH OPERATOR 11/15/20 05/26/23 None, ProviderMD PCP - General UNKNOWN PHYSICIAN SPECIALTY 05/27/23 02/15/24 Harley Campos MD [address] [id number] PCP - General FAMILY PRACTICE 02/16/24 documented as of this encounter
--- OUTSIDE RECORDS SUMMARY | 2025-05-08 16:47 | XMS_ITS | Continuity of Care Document ---
Author Organization [facility] Address [address] [facility] [place] [address] Phone Care Team Providers Care Supervisor Electronic Coils Name Role Phone Zeeshan Eral PA-C Unavailable Unavailable Allergies, Adverse Reactions, Alerts [...] Copied on Encounter OFFICE/OUTPAT IENT VISIT, EST [facility], [address] [facility] [place], [id number], [place] tel:[phone] [facility] cold symptoms (chief complaint) Suspected exposure to other viral communicable diseaseSinusitis [address] Mady Byers. [address] [place] [address], [address], [place]. tel:[phone] Referring Provider: Zeeshan Earl, [address] [place] [address], [address]. tel:[phone] OFFICE/OUTPAT IENT VISIT, [facility], [address] [place] [address], [id number], tel:[phone] [facility] Encounter for screening for other viral diseases 0 Mady Byers. [address] [place] [address], [address], [place]. tel:[phone] Referring Provider: Zeeshan Earl, [address] [place] [address], [address]. tel:[phone] OFFICE/OUTPAT IENT VISIT, [facility], [address] [place] [address], [id number], [place] tel:[phone] [facility] covid exposure (chief complaint) Encounter for screening for other viral disease 0 Mady Byers. [address] [place] [address], [address], [place]. tel:[phone] Referring Provider: Zeeshan Earl, [address] [place] [address], [address]. tel:[phone] Family History Family Member Type Diagnosis Age At Onset No Information Payers Payer name Insurance type Covered democrat ID Alonso lakhani[facility]se [facility]ns[facility] [id number] [place] [id number] Social History Type Description Quantity Date Captured [...] day quarantine. 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 Patient Care Teams Name Effective Dates (start - stop) Status Members No Information
--- OUTSIDE RECORDS SUMMARY | 2025-05-08 16:47 | XMS_ITS | Clinical Summary ---
Author Organization [address] Address [address] [place] [address] Care Team Providers Care Tariff Inspector Name Role Phone Radha Fermin Primary Care Provider [phone] Allergies No known active allergies Medications aspirin [...] on file Legal Sex Female 8:04 PM PIPE COVERER HELPER Gender Identity Not on file Sexual Orientation [...] MAMMOGRAM BILATERAL W THEO 11/07/2019 3:26 PM PIPE COVERER HELPER from Last 3 Months or Most Recently Relevant to Health Maintenance Results * Screening Mammogram Bilateral W Theo (11/07/2019 3:26 PM PIPE COVERER HELPER) Anatomical Region Laterality Modality Breast Bilateral Mammography 11/07/2019 3:49 PM PIPE COVERER HELPER Narrative 11/11/2019 8:09 AM PIPE COVERER HELPER Patient Name: PATRICIA AUSTIN Dr: Yanique Walker CNP, D.O.B: 1965 Exam Date: 11/07/19 1526 Age: 54 Sex: Female MR#: [id number] Loc: RADIOLOGY REPORT Order #[id number] [facility] Marisol Bilat Screening 3D Signed - MG [...] made to exam dated: 02/16/2018 mammogram - [place]. BREAST TISSUE: There are scattered areas of [...] Electronically signed by: Julian Hastings rl/ebonie:11/11/2019 08:09:38 Housekeeping Cleaner: Crys Sanchez (R)), [facility] letter sent: Normal Exam Reading location: BI-RADS: 2 Benign REPORT ELECTRONICALLY SIGNED IN OTHER VENDOR SYSTEM Resulting Agency Comment O Procedure Note Julian Toro MD - 11/11/2019 Patient Name: NORMANPATRICIA Dr: Yanique Walker CNP, D.O.B: 1965 Exam Date: 11/07/19 1526 Age: 54 Sex: Female MR#: [id number] Loc: RADIOLOGY REPORT Order #[id number] [facility] Marisol Bilat Screening 3D Signed - MG [...] is made to exam dated: 02/16/2018 mammogram -[place]. BREAST TISSUE: There are scattered areas of [...] Electronically signed by: Julian Hastings rl/ebonie:11/11/2019 08:09:38 Housekeeping Cleaner: Crys Kumar)(Krzysztof), [facility] letter sent: Normal Exam Reading location: BI-RADS: 2 Benign REPORT ELECTRONICALLY SIGNED IN OTHER VENDOR SYSTEM Yanique Walker NP IMG MAMMO PROCEDURES Final Result from Last 3 Months or Most Recently Relevant to Health Maintenance Insurance [facility] Care Teams Tariff Inspector Relationship Specialty Start Date End Date Radha Fermin PA [address] [place], [place] [address] PCP - General Physician Line Servicer 05/27/21
--- OUTSIDE RECORDS SUMMARY | 2025-05-08 16:47 | XMS_ITS | Clinical Summary ---
Author Organization [facility] Address [facility] [place] [address] Care Team Providers Care Dispatcher Clerk Name Role Phone Harley Campos MD Primary Care Provider [phone] Allergies No known active allergies Medications modafinil 200 MG tablet Take 1 tablet (200 mg total) by mouth daily. 0 Active aspirin EC (ECOTRIN) 81 MG tablet [...] mg by mouth daily. Active vitamin D3, cholecalciferol , 10 MCG (400 UNIT) tablet Take 1 tablet (400 Units total) by mouth daily. 2 tabs daily Active clobetasol 0.05 % Cream Apply 1 each topically 2 (two) times daily. Active omeprazole (PRILOSEC) 20 MG capsule 3 Active trimethoprim (TRIMPEX) 100 MG tablet Take 1 tablet (100 mg total) by mouth. 4 Active estradiol (ESTRACE) 0.1 MG/GM vaginal cream Place 1 g vaginally. 5 Active GEMTESA 75 MG tablet Take 1 tablet (75 mg total) by mouth daily. 4 Active cetirizine (ZYRTEC) 10 MG tablet Take 1 tablet (10 mg total) by mouth daily. 30 tablet 5 Active predniSONE (DELTASONE) 20 MG tablet Take 2 tablets a day by mouth for 5 days then take 1 tab a day by mouth for 5 days 15 tablet 5 Active Active Problems No known active problems Encounters Date Type Department Care Team Description 03/07/2025 4:56 AM CDT - 03/07/2025 7:[address] [facility] [place] [address] Laurel Schroeder MD Auer, Charles E, MD Skin Problem Discharge Disposition: Home or Self Care (Routine Discharge) 03/07/2025 Travel 03/04/2025 Results Follow-Up [facility] [address] [place] [address] Sandra Purdy MD CULTURE URINE 03/01/2025 2:48 PM CDT - 03/01/2025 3:20 PM CDT Hospital Encounter [facility] [place] [address] Dominga Cee DO Urinary Symptoms; Sinus Problem Discharge Disposition: Home or Self Care (Routine Discharge) 03/01/2025 Travel from Last 3 Months Family History [...] Sex Assigned at Female 11/09/2024 10:20 AM OPHTHALMIC MEDICAL ASSISTANT Legal Sex Female 4:33 PM CDT Gender [...] AM CD T Height 170.2 cm (5' 7) 03/07/2025 4:53 AM CDT Body Mass Index [...] DIP STAT 03/01/2025 3 :00 PM CDT from Last 3 Months Results * (ABNORMAL) COMPREHENSIVE METABOLIC PANEL (03/07/2025 5:20 AM CDT) [facility] GLUCOSE 110(H) 70 - 99 MG/DL 03/07/2025 6:13 AM CDT [facility] BUN 19(H) 7 - 18 MG/DL 03/07/2025 6:13 AM CDT [facility] CREATININE S/P/B 0.62 0.55 - 1.02 MG/DL 03/07/2025 6:13 AM CDT [facility] SODIUM S/P/B 138 136 - 145 MMOL/L 03/07/2025 6:13 AM CDT [facility] POTASSIUM S/P/B 3.8 3.5 - 5.1 MMOL/L 03/07/2025 6:13 AM CDT [facility] CHLORIDE S/P/B 110 97 - 115 MMOL/L 03/07/2025 6:13 AM CDT [facility] CO2 21.4 21 - 32 MMOL/L 03/07/2025 6:13 AM CDT [facility] CALCIUM S/P/B 9.9 8.5 - 10.1 MG/DL 03/07/2025 6:13 AM CDT [facility] BILIRUBIN TOTAL S/P/B 0.4 0.2 - 1.2 MG/DL 03/07/2025 6:13 AM CDT [facility] Comment: THIS ASSAY IS NOT RECOMMENDED FOR PATIENTS UNDERGOING TREATMENT WITH ELTROMBOPAG DUE TO THE POTENTIAL FOR FALSELY ELEVATED RESULTS. TOTAL PROTEIN S/P/B 7.5 6.4 - 8.2 G/DL 03/07/2025 6:13 AM CDT [facility] ALBUMIN S/P/B 3.6 3.4 - 5.0 G/DL 03/07/2025 6:13 AM CDT [facility] AST 26 15 - 37 U/L 03/07/2025 6:13 AM CDT [facility] ALT 39 14 - 55 U/L 03/07/2025 6:13 AM CDT [facility] ALKALINE PHOSPHATASE S/P/B 95 50 - 136 U/L 03/07/2025 6:13 AM T [facility] ANION GAP 6.6 2 - 10 MMOL/L 03/07/2025 6:13 AM T [facility] BUN CREATININE RATIO 30.8(H) 6 - 26 03/07/2025 6:13 AM T [facility] A/G RATIO 0.9(L) 1.0 - 2.0 RATIO 03/07/2025 6:13 AM T [facility] GFR ESTIMATE >90 >90 ML/MIN/1.7 3 M2 03/07/2025 6:13 AM T [facility] Comment: NOTE: eGFR is not [...] Laurel Schroeder MD LABORATORY Final Resul t [facility] [address] [place] [address], [place] [phone] * (ABNORMAL) CBC W/DIFF AUTOMATED (03/07/2025 5:20 AM CDT) [facility] Signature WBC 5.55 4.5 - 11.0 x10'3/uL 03/07/2025 5:52 AM CDT [facility] RBC 5.10 4.20 - 5.40 x10'6/uL 03/07/2025 5:52 AM CDT [facility] HGB 15.1 12.0 - 16.0 G/DL 03/07/2025 5:52 AM CDT [facility] HCT 46.3 38.0 - 48.0 % 03/07/2025 5:52 AM CDT [facility] MCV 90.8 81.0 - 99.0 FL 03/07/2025 5:52 AM CDT [facility] MCH 29.6 27.0 - 31.0 PG 03/07/2025 5:52 AM CDT [facility] MCHC 32.6 32.0 - 36.0 G/DL 03/07/2025 5:52 AM CDT [facility] RDW 13.0 11.5 - 14.5 % 03/07/2025 5:52 AM CDT [facility] PLT 233 130 - 400 x10'3/uL 03/07/2025 5:52 AM CDT [facility] MPV 11.1 9.3 - 12.2 FL 03/07/2025 5:52 AM CDT [facility] DIFFERENTIAL TYPE AUTOMATED DIFFERENTIAL 03/07/2025 5:52 AM CDT [facility] NEUTROPHILS % 63.2 % 03/07/2025 5:52 AM CDT [facility] LYMPHOCYTES % 31.7 % 03/07/2025 5:52 AM CDT [facility] MONOCYTES % 3.6 % 03/07/2025 5:52 AM CDT [facility] EOSINOPHILS 0.9 % 03/07/2025 5:52 AM CDT [facility] BASOPHILS 0.2 % 03/07/2025 5:52 AM CDT [facility] IMMATURE GRANS % 0.4 % 03/07/20 5:52 AM CDT [facility] ABS. NEUTROPHILS 3.51 1.80 - 7.70 x10'3/uL 03/07/2025 5:52 AM CDT [facility] ABS. LYMPHOCYTES 1.76 1.00 - 4.80 x10'3/uL 03/07/2025 5:52 AM CDT [facility] ABS. MONOCYTES 0.20(L) 0.24 - 0.86 x10'3/uL 03/07/2025 5:52 AM CDT [facility] ABS. EOSINOPHILS 0.05 0.04 - 0.36 x10'3/uL 03/07/2025 5:52 AM CDT [facility] ABS. BASOPHILS 0.01 0.01 - 0.08 x10'3/uL 03/07/2025 5:52 AM CDT [facility] ABS. IMMATURE GRANULOCYTES 0.02 0.00 - 0.49 x10'3/uL 03/07/2025 5:52 AM CDT [facility] 03/07/2025 5:20 AM CDT us Laurel Schroeder MD LABORATORY Final Resul t [facility] [address] [place] [address], * (ABNORMAL) CULTURE URINE (03/01/2025 3:00 PM CDT) SPEC DESCRIPTION URINE CLEAN CATCH 03/01/2025 3:03 PM CDT [facility] SPECIAL REQUESTS NO SPECIAL REQUEST 03/01/2025 3:03 PM CDT [facility] CULTURE RESULT 50,000-100, 000 COL/ML ENTEROBACTE R CLOACAE COMPLEX (A) 03/04/2025 7:42 AM CDT [facility] URINE SPECIMEN OBTAINED BY CLEAN [...] complex TRIMETH-SULFAMETH. TIARRA (V ITEK) <=20: Sensitive us Dominga Cee DO MICROBIOLOGY - GENERAL ORDERA BLES Final Result [facility] [address] [place] [address], [place] [phone] [facility] [place] [address], [place] * (ABNORMAL) URINALYSIS AUTO DIP (03/01/2025 3:00 PM CDT) SPECIMEN TYPE URINE CLEAN CATCH 03/01/2025 3:03 PM CDT [facility] COLOR (U) YELLOW 03/01/2025 3:10 PM CDT [facility] TRANSPARENCY CLOUDY 03/01/2025 3:10 PM CDT [facility] SPECIFIC GRAVITY (U) 1.025 1.001 - 1.030 03/01/2025 3:10 PM CDT [facility] U PH 5.5 5.0 - 9.0 03/01/2025 3:10 PM CDT [facility] LEUKOCYTES (U) MODERATE(A) NEGATIVE 3:10 PM CDT [facility] NITRITES POSITIVE(A) NEGATIVE 03/01/2025 3:10 PM CDT [facility] PROTEIN RANDOM (U) 100(H) <30 MG/DL 03/01/2025 3:10 PM CDT [facility] GLUCOSE (U) NEGATIVE NEGATIVE MG/DL 03/01/2025 3:10 PM CDT [facility] KETONES MG/DL (U) NEGATIVE NEGATIVE MG/DL 03/01/2025 3:10 PM CDT [facility] UROBILINOGEN 0.2(A) NEGATIVE MG/DL 03/01/2025 3:10 PM CDT [facility] BILIRUBIN (U) NEGATIVE NEGATIVE MG/DL 03/01/2025 3:10 PM CDT [facility] BLOOD (U) MODERATE(A) NEGATIVE 03/01/2025 3:10 PM CDT [facility] URINE SPECIMEN OBTAINED BY CLEAN CATCH PROCEDURE / Unknown 03/01/2025 3:00 PM CDT us Dominga Cee DO URINE ORDERABLES Final Result [facility] [address] [place] [id number], * STREP A RAPID (03/01/2025 3:00 PM CDT) SPECIMEN TYPE THROAT 03/01/2025 3:03 PM CDT [facility] RAPID STREP TEST NEGATIVE NEGATIVE 03/01/2025 3:12 PM CDT [facility] STRUCTURE OF ANTERIOR PORTION OF NECK / Unknown 03/01/2025 3:00 PM CDT us Dominga Cee DO MICROBIOLOGY - GENERAL ORDERA BLES Final Result Performing Organization Address [facility] Co de Phone Number [facility] [address] [place], [place] [address], from Last [address] [place] [address] [address] Care Teams Dispatcher Clerk Relationship Specialty Start Date End Date Harley Campos MD [address] [address] PCP - General FAMILY PRACTICE 02/16/24
--- OUTSIDE RECORDS SUMMARY | 2025-05-08 16:47 | XMS_ITS | Encounter Summary ---
Author Organization [facility] Address [address] [place] [address] Care Team Providers Care Information Resource Consultant Name Role Phone Radha Callaway Primary Care Provider [phone] None, Provider Primary Care Provider Harley Thrasher MD Primary Care Provider [phone] Encounter Details Date Type Department Care Team (Late st Contact Info) Description 09/18/2020 Prep for Procedure [facility] [place] [address] Mo Wooten MD [address] [id number] Social History Tobacco Use Types Packs/Day Years Used Date Smoking Tobacco: Every Day Cigarettes Smokeless Tobacco: Never Alcohol Use Standard Drinks/Week Comments Not Currently 0 (1 standard drink = 0.6 oz pur e alcohol) 3 times year Comments Unknown Sex and Gender Information Value Date Recorded Sex Assigned at Female 11/09/2024 10:20 AM MANAGER REGULATORY Legal Sex Female 4:33 PM CDT Gender Identity Not on file Sexual Orientation Not on file COVID-19 Exposure Response Date Recorded In the last month, have you been in contact with someone who was confirmed or suspected to have Coronavirus / COVID-19? Yes 09/18/2020 8:30 AM MANAGER REGULATORY documented as of this encounter Plan of Treatment Not on file documented as of this encounter Visit Diagnoses Diagnosis Hematochezia- Primary Blood in stool documented in this encounter Additional Health Concerns Infection Onset Date Last Indicated Resolved Time COVID-19 Rule Out 09/23/2020 09/23/2020 09/24/2020 11:56 AM MANAGER REGULATORY COVID-19 Rule Out 11/23/2020 11/23/2020 11/24/2020 4:31 PM MANAGER REGULATORY COVID-19 Rule Out 07/09/2021 07/09/2021 07/10/2021 11:47 AM CDT COVID-19 Rule Out 05/27/2023 05/27/2023 05/28/2023 7:24 AM CDT COVID-19 Rule Out 11/24/2023 11/24/2023 11/24/2023 6:55 PM MANAGER REGULATORY COVID-19 Rule Out 01/17/2024 01/17/2024 01/17/2024 4:46 PM CDT COVID-19 Rule Out 02/16/2024 02/16/2024 02/16/2024 3:01 PM CDT COVID-19 Rule Out 11/09/2024 11/09/2024 11/09/2024 11:14 AM MANAGER REGULATORY documented as of this encounter Care Teams Information Resource Consultant Relationship Specialty Start Date End Date Radha Callaway PA [facility] [address] [place] [address] PCP - General PHYSICIAN [place] 11/15/20 05/26/23 None, ProviderMD PCP - General UNKNOWN PHYSICIAN SPECIALTY 05/27/23 02/15/24 Harley aCmpos MD [address] [address] PCP - General FAMILY PRACTICE 02/16/24 documented as of this encounter
--- OUTSIDE RECORDS SUMMARY | 2025-05-08 16:48 | XMS_ITS | Patient Health Record ---
Author Organization [facility] Address [address] [place], [place] [id number] Care Team Providers Care Email Designer Name Role Phone MAHOGANY AGGARWAL Unavailable [phone] Sharmaine Campos Unavailable Unavailable Allergies No Known Allergies Reason For Referral Reason REFERRAL ( E STABLISHED VISITS ) 04/20/2025 [facility] REFERRALS ARE NO LONGER VALID OF APRIL 24, 2025 PER [facility]. K[facility] Diagnosis 1 Plantar fascial fibr omatosis (M72.2) Referred Organization [facility] Referred Provider MAHOGANY AGGARWAL Referred Address [address],[place], [id number], Referred Provider Specialty Podiatry Referral Priority Routine [...] Location Date Provider Diagnosis [facility] [address] [place], [place] [id number] 05/18/2024 MAHOGANY SNOOK Plantar fascial fibromatosis M72.2 ; Calcaneal spur, left foot M77.32 and Left foot pain M79.672 [facility] [address] [place], [place] [id number] 06/08/2024 MAHOGANY SNOOK Plantar fascial fibromatosis M72.2 ; Calcaneal spur, left foot M77.32 and Left foot pain M79.672 [facility] [address] [place], [place] [phone] 08/02/2024 MAHOGANY SNOOK Plantar fascial fibromatosis M72.2 ; Calcaneal spur, left foot M77.32 and Left foot pain M79.672 [facility] [address] [place], [place] [id number] 08/23/2024 MAHOGANY SNOOK Plantar fascial fibromatosis M72.2 ; Calcaneal spur, left foot M77.32 and Left foot pain M79.672 [facility] [address] [place], [place] [id number] 08/29/2024 MAHOGANY SNOOK Assessments Encounter Date Diagnosis (ICD Code) Assessment Notes Treatment Notes Treatment Clinical Notes Section Notes 05/18/2024 Plantar fascial fibromatosis (ICD-10 - M72.2) [...] 05/18/2024 Left foot pain (ICD-10 - M79.672) Plan Of Treatment No Information Insurance Providers Payer Name Payer Address Payer Phone Subscriber Number Group Number Insured Name Patient Relationship to Insured Coverage Start Date Coverage End Date [facility] [employer] [address] [place] [phone] [id number] SHARMAINE [place] Spouse - patient is the spouse of the insured Medical (General) History Medical History History ICD Code acid reflux kidney stones hepatitis hemorrhoids eczema psoriasis hypersomnolence urinary incontinence
--- OUTSIDE RECORDS SUMMARY | 2025-05-08 16:48 | XMS_ITS | Clinical Summary ---
Author Organization [facility] Address [address] [facility] Attn: Epic Prelude ADT DAPHNE OREILLY [address] Care Team Providers Care Finish Cleaner Name Role Phone Unavailable Primary Care Provider Unavailabl e Allergies No known active allergies Medications clobetasoL (TEMOVATE) 0.05 % Cream APPLY TO RASH ON BODY TWO TIMES A DAY NEEDED 60 Gram 9 03/20/2022 7:54 PM CDT 1 Active benzonatate (TESSALON) 100 mg capsule Take 1 capsule (100 mg) by mouth every 8 (eight) hours 21 Capsule 09/03/2022 12:58 PM LICENSED MIDWIFE 2 Active modafiniL (PROVIGIL) 200 mg Tablet Take 2 tablets (400 mg total) by mouth every morning 60 Tablet 5 04/20/2023 10:40 AM CDT 3 Active estradioL (Estrace) 0.01% (0.1 mg/g) vaginal cream Insert 1 gram vaginally twice weekly 42.5 Gram 4 09/21/2023 12:43 PM LICENSED MIDWIFE 3 Active oxyBUTYnin (DITROPAN) 5 mg tablet Take 1 Tablet (5 mg) by mouth 2 times daily. 60 Tablet 11 09/21/2023 12:43 PM LICENSED MIDWIFE 3 Active ondansetron (ZOFRAN ODT) 4 mg [...] daily. 90 Tablet 1 11/11/2024 3:22 PM LICENSED MIDWIFE 4 Active trimethoprim (TRIMPEX) 100 mg tablet [...] Tablet 03/10/2025 11:22 AM CDT 5 Active Encounters Date Type Department Care Team Description 04/18/2025 External Device Data [facility]STRACTION Provider, Abstract [...] (1 of 2) 01/05/2014 INFLUENZA VACCINE (#1) 2025 RSV VACCINE (60+ or ) (1 - 1-dose 75+ series) 01/05/2039 Insurance [place] [id number] [employer]
--- OUTSIDE RECORDS SUMMARY | 2025-05-08 16:49 | XMS_ITS | Continuity of Care Document ---
Author Name [facility] Organization [facility] Care Team Providers Care Sleep Technologist Name Role Phone [facility] Unavailable Unavailable Problems Combined list of problems from 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 It does not include entries that were removed or entered in error. Problem Status Onset Date Problem Type Date of Resolution Comments Source Atopic dermatitis Active 06/08/20 19 Condition [facility] Encounter for issue of repeat prescription Active 06/08/20 19 Condition DoD Atopic dermatitis, unspecified Active 06/08/20 19 Condition DoD Other specified counseling Active 06/08/20 19 Condition DoD Hyperlipidemia Active 12/12/19 17 Condition 5C-[facility] Tobacco use Active 12/12/19 17 Condition DoD Hyperlipidemia, unspecified Active 12/12/19 17 Condition DoD Allergic rhinitis Active Condition 0055 C-[facility] Chronic rhinitis Active Condition DoD Cystocele Active Condition 0055C-[facility] Diastasis of muscle Active Condition 0055C-[facility] Disturbance in sleep behavior Active Condition 0055C-375t h [facility] Eczema Active Condition 1070W-Kz-H-[facility] Th [facility] Essential hypertension Active Condition 0055C-[facility] Fatigue Active Condition 3531D-Ph-F-375 [facility] Female stress incontinence Active Condition 0055C-[facility] Fibrocystic disease of breast Active Condition 0055C-3 [facility] GERD - Gastro-esophageal reflux disease Active Condition 6130C-Af-C -[facility] HTN - Hypertension Active Condition 8287R-Rw-A-3 75 [facility] Hypothyroidism Active Condition 0055C-3 [facility] Menstrual migraine Active Condition 0055C-[facility] Morbid obesity Active Condition Unknown Organization Nicotine dependence1 Active Condition Outside Source Comment: counseled on risk and cessation 5C-[facility] Obesity Active Condition 0055C-[facility] Osteopenia Active Condition 0055C-[facility] Other abnormal uterine and vaginal bleeding Active Condition 0055C-37 5th [facility] Other disorders of bone density and structure Active Condition 0055C-375[facility] Pain in left foot Active Condition 6130 C-Af-C-375 Th [facility] Urinary incontinence Active Condition 2877B-Sg-C-3 75 Th [facility] Well adult Active Condition 6130C-Af-C- 375 [facility] Essential (primary) hypertension Active Condition DoD Migraine with aura, not intractable, without status migrainosus Active Condition DoD REFRACTIVE ERROR - HYPERMETROPIA Active Condition DoD Vaginal Discharge Active Condition DoD visit for: refer patient without exam or treatment Inactive Condition DoD SINUSITIS Active Condition DoD URINARY CALCULUS Active Condition DoD HYPERLIPIDEMIA Active Condition DoD current smoker Active Condition DoD BACTERIAL VAGINOSIS Inactive Condition DoD OVARIAN CYST Active Condition DoD Test Negative Inactive Condition DoD URINARY INCONTINENCE Active Condition DoD MENORRHAGIA Active Condition DoD CYSTOCELE Active Condition DoD visit for: laboratory Inactive Condition DoD Blood Pressure Isolated Elevated Active Condition DoD FATIGUE Active Condition DoD BREAST FIBROCYSTIC DISEASE Active Condition DoD Thyroid Function Tests Nonspecific Abnormal Findings Active Condition DoD headache associated with menstrual cycle Active Condition DoD sleep disturbances Active Condition DoD headache Inactive Condition DoD HEADACHE SYNDROMES Active Condition DoD visit for: [employer] services physical senior care Active Condition DoD Mammogram Screening Inactive Condition DoD ROUTINE GYNECOLOGICAL EXAM WITH CERVICAL PAP SMEAR Inactive Condition DoD HEARING LOSS Active Condition DoD DYSFUNCTIONAL UTERINE BLEEDING Active Condition DoD DYSMENORRHEA Active Condition DoD DRY EYE SYNDROME Active Condition DoD UPPER RESPIRATORY INFECTION Inactive Condition DoD METRORRHAGIA Active Condition DoD ALLERGIC RHINITIS Active Condition DoD PREMENSTRUAL HEADACHE SYNDROME Active Condition DoD LEG STRAIN LEFT PERONEUS BREVIS TENDON Active Condition DoD visit for: postsurgical exam Active Condition DoD Aftercare Following Surgery Of Sense Organs Inactive Condition DoD visit for: preoperative exam Active Condition DoD REFRACTIVE ERROR Active Condition DoD REFRACTIVE ERROR - MYOPIA Active Condition DoD ASTIGMATISM - REGULAR Active Condition DoD visit for: pre-admission testing Active Condition DoD PRESBYOPIA Active Condition DoD ASTIGMATISM Active Condition DoD SCAR Active Condition DoD visit for: issue repeat prescription Inactive Condition DoD FOLLICULITIS Active Condition DoD tobacco use Active Condition DoD visit for: administrative purpose Inactive Condition DoD Patient Education Inactive Condition DoD HYPOTHYROIDISM Active Condition DoD FEMALE STRESS INCONTINENCE Active Condition DoD visit for: [employer] flight physical Active Condition DoD Patient Education - Pre-Procedure Teaching Inactive Condition DoD Patient Education - Action Plan Inactive Condition DoD STRESS INCONTINENCE Active Condition DoD visit for: screening exam malignant neoplasm breast Inactive Condition DoD visit for: screening exam for malignant neoplasm cervix Inactive Condition DoD Pelvic Exam (Internal) Inactive Condition DoD CELLULITIS Inactive Condition will plac e back on keflex. Pt to f/u with her surgeon as planned. DoD Outpatient Physician Consultation Active Condition DoD Surgical Dressing Change Inactive Condition DoD Aftercare Involving The Use Of Plastic Surgery Inactive Condition DoD Patient Education - Dietary Active Condition DoD DIASTASIS OF MUSCLE Active Condition DoD HYPERTROPHIC SKIN CONDITION ANTERIOR ABDOMEN Active Condition DoD LOCALIZED ADIPOSITY Active Condition DoD COMMON COLD Inactive Condition DoD Laboratory Studies Inactive Condition DoD Cervix Sample Taken For Pap Smear Inactive Condition DoD UNSPECIFIED COMPLICATION OF PROCEDURE Active Condition DoD NICOTINE DEPENDENCE Active Condition counseled on risk and cessation DoD CONTUSION WITH INTACT SKIN SURFACE - LEG RIGHT LATERAL Inactive Condition small hematoma at site- recommend heat- NSAIDS - f/u if sx inc or persist DoD PINGUECULA Active Condition Pt ed UV protection. DoD visit for: services physical Inactive Condition DoD REFRACTIVE ERROR - MYOPIA Active Condition Rx manifest. DoD MUSCLE SPASM Inactive Condition DoD visit for: request expert evidence Inactive Condition DoD Medications Combined list of outpatient medications from 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Medications provided include 1) outpatient medications from the last 15 months, and 2) patient-reported medications. Medication Details Route Status Patient Instructions Prescription Expires Prescription Number Last Dispense Date Ordering Provider Order Date Order Qty Source aspirin 81 mg oral capsule 1 cap(s), Oral, every 24 hr, # 90 cap(s), 2 total refill(s ), Maintena mae, Pharmacy : [facility] Oral (given by mouth) Ordered 5 2024 90.0 6130C-A f-C-[facility] aspirin 81 mg oral capsule cap(s), Oral, every 24 hr, 0 total refill(s ), Maintena nce Oral (given by mouth) Discont inued 04/11/20242023 6130C-A f-C-[facility] aspirin 81 mg oral capsule 1 cap(s), Oral, every 24 hr, # 90 cap(s), 2 total refill(s ), Maintena mae, Pharmacy : [facility] Oral (given by mouth) Discont inued 04/10/2025 4 2024 90.0 6130C-A f-C-[facility] ASPIRIN EC (U/D) 81 MG ORAL TBEC Take with food/mil Pancho martins whole. 04/11/2025 [id number] 2023 90 [facility] aspirin EC 81 mg tablet See Instruct ions, # 90 EA, 3 total refill(s ), Acute Complet ed 03/17/2024 4 2023 90.0 Ambulat ory Pharmac y atorvastati n 40 mg oral tablet 1 tab(s), Oral, Daily, for choleste rol, # 90 tab(s), 2 total refill(s ), Maintena nce, Pharmacy : [facility] Oral (given by mouth) Ordered 5 2024 90.0 6130C-A f-C-375 [facility] atorvastati n 40 mg oral tablet 1 tab(s), Oral, Daily, for choleste rol, # 90 tab(s), 3 total refill(s ), Maintena nce Oral (given by mouth) Discont inued 04/11/20242023 90.0 6130C-A f-C-375 Th [facility] atorvastati n 40 mg oral tablet 1 tab(s), Oral, Daily, for choleste rol, # 90 tab(s), 2 total refill(s ), Maintena nce, Pharmacy : [facility] Oral (given by mouth) Discont inued 04/10/2025 4 2024 90.0 6130C-A f-C-375 Th [facility] atorvastati n 40 mg tablet See Instruct ions, # 90 EA, 3 total refill(s ), Acute Complet ed 03/17/2024 4 2023 90.0 Ambulat ory Pharmac y calcium carbonate 1,500 mg (elemental Ca 600 mg) oral tab 1 tab(s), Oral, Daily, # 90 tab(s), 2 total refill(s ), Maintena nce, Pharmacy : [facility] Oral (given by mouth) Discont inued 07/13/2024 4 2023 90.0 6130C-A f-C-375 Th [facility] calcium carbonate 1,500 mg (elemental Ca 600 mg) oral tab 600 mg, Oral, Daily, # 90 tab(s), 3 total refill(s ), Maintena [facility], Pharmacy : [facility] Oral (given by mouth) Ordered 2023 90.0 6130C-A f-C-375 Th [facility] cholecalcif alexandria 125 mcg (5,000 units) capsule See Instruct ions, # 90 EA, 3 total refill(s ), Acute Complet ed 03/17/2024 4 2023 90.0 Ambulat ory Pharmac y cholecalcif alexandria 50 mcg (2000 intl units) oral capsule 1 cap(s), Oral, Daily, # 90 cap(s), 3 total refill(s ), [facility], [facility] Oral (given by mouth) Ordered 2024 90.0 6130C-A f-C-375 Th [facility] cholecalcif alexandria 50 mcg (2000 intl units) oral capsule 1 cap(s), Oral, Daily, # 90 cap(s), 3 total refill(s ), [facility], [facility] : [facility] Oral (given by mouth) Discont inued 07/13/20242023 90.0 6130C-A f-C-375 Th [facility] cholecalcif alexandria 50 mcg (2000 intl units) oral capsule 1 cap(s), Oral, Daily, # 90 cap(s), 3 total refill(s ), [facility] Oral (given by mouth) Discont inued 04/10/20252024 90.0 6130C-A f-C-375 Th [facility] cholecalcif alexandria 50 mcg (2000 intl units) oral capsule 1 cap(s), Oral, Daily, # 90 cap(s), 3 total refill(s ), Maintena mae, Pharmacy : [facility] Oral (given by mouth) Discont inued 07/13/20242023 90.0 6130C-A f-C-375 Th [facility] cholecalcif alexandria 50 mcg (2000 intl units) oral capsule 1 cap(s), Oral, Daily, # 90 cap(s), 0 total refill(s ), Maintena nce Oral (given by mouth) Discont inued 04/18/20242023 90.0 6130C-A f-C-375 Th [facility] CLOBETASOL 0.05% CREAM/CEREV E CREAM 1:1- For external use. 01/22/2025 [id number] 4 [address] [place] [address] [place] DESAI ([facility] clobetasol 0.05% topical cream 1 appl(s), Topical, BID, # 60 g, 1 total refill(s ), Maintena nce, Pharmacy : [facility] Topica l (on the skin) Ordered 5 2024 60.0 6130C-A f-C-375 Th [facility] clobetasol 0.05% topical cream 1 appl(s), Topical, BID, PRN dry skin, Apply to eczema as needed, no longer than 2 weeks, # 30 g, 1 total refill(s ), Acute, Pharmacy : [facility] Topica l (on the skin) Complet ed 01/21/2025 4 2024 30.0 6130C-A kassi-C-375 Th [facility] Compounded Prilosec Capsule Conventiona l 20 mg Oral Take or use exactly as directed .Obtain advice for OTCs.Jack lindsay. 04/11/2025 [id number] 4 [address] [place] [address] [place] DESAI ([facility]) Fish Oil oral capsule 1 cap(s), Oral, Daily, # 100 cap(s), 0 total refill(s ), Maintena nce Oral (given by mouth) Ordered 2023 100.0 0055C-3 75th [facility] fluticasone 27.5 mcg/inh nasal spray spray(s) , Daily, 0 total refill(s ), Maintena nce Discont inued 04/18/20242023 6130C-A f-C-375 Th [facility] fluticasone 50 mcg/inh nasal spray 100 mcg, Nostril- Both, Daily, # 48 g, 3 total refill(s ), Maintena nce, Pharmacy : [facility] Nostri l-Both (into the nose) Ordered 5 2024 48.0 6130C-A f-C-375 Th [facility] fluticasone 50 mcg/inh nasal spray [16g] See dose instruct ions in comments , # 32 g, 3 total refill(s ), Acute Complet ed 03/17/2024 4 2023 32.0 Ambulat ory Pharmac y fluticasone 93 mcg/inh nasal spray 1 spray(s) , Nostril- Both, BID, # 16 mL, 3 total refill(s ), Maintena mae, Pharmacy : [facility] Nostri l-Both (into the nose) Discont inued 04/10/20252024 16.0 6130C-A f-C-375 Th [facility] Keflex 500 mg oral capsule 1 cap(s), Oral, every 12 hr, X 7 days, # 14 cap(s), 0 total refill(s ), Acute, 05/02/24 12:28:00 PM CDT, Pharmacy : [facility] , Urinary, uncompli cated UTI Oral (given by mouth) Complet ed 05/02/2024 4 2023 14.0 6130C-A f-C-375 Th [facility] levoFLOXaci n 750 mg oral tablet 1 tab(s), Oral, every 24 hr, X 5 days, # 5 tab(s), 0 total refill(s ), Acute, 04/15/25 9:05:00 AM CDT, Pharmacy : [facility] , Urinary, complica janee UTI/pyel onephrit is Oral (given by mouth) Complet ed 04/15/2025 5 2024 5.0 6130C-A f-C-375 Th [facility] Macrobid 100 mg oral capsule 1 cap(s), Oral, BID, X 5 days, # 10 cap(s), 0 total refill(s ), Acute, 05/27/24 1:31:00 PM CDT, Pharmacy : [facility] , Urinary, uncompli cated UTI Oral (given by mouth) Complet ed 05/27/2024 4 2023 10.0 0055C-3 [facility] micon[facility] 2% vaginal cream with applicator 1 appl(s), Vaginal, every day at bedtime, # 45 g, 0 total refill(s ), Acute, Pharmacy : [facility] Vagina l (in the vagina ) Discont inued 11/29/20242024 45.0 0055C-3 [facility] modafinil 200 mg oral tablet 2 tab(s), Oral, every morning, # 180 tab(s), 0 total refill(s ), Maintena mae, Pharmacy : [facility] Oral (given by mouth) Ordered 3 2022 180.0 6130C-A -C-375 Th [facility] modafinil 200 mg tablet 200 mg, TAKE ONE TABLET BY MOUTH EVERY DAY, Oral, Daily, # 90 EA, 1 total refill(s ), Acute Oral (given by mouth) Complet ed 09/15/2023 3 2022 90.0 Ambulat ory Pharmac y multivitami n adult, oral tablet Oral, Daily, 0 total refill(s ), Maintena nce Oral (given by mouth) Ordered 2023 0055C-3 75th [facility] omeprazole 20 mg oral delayed release capsule 1 cap(s), Oral, BID(AC), 30 to 60 minutes before meal, # 180 cap(s), 3 total refill(s ), Maintena mae, Pharmacy : [facility] Oral (given by mouth) Ordered 5 2024 180.0 6130C-A -C-375 Th [facility] omeprazole 20 mg oral delayed release capsule 1 cap(s), Oral, BID(AC), 30 to 60 minutes before meal, # 180 cap(s), 3 total refill(s ), Maintena nce, Pharmacy : [facility] Oral (given by mouth) Discont inued 04/10/20252024 180.0 6130C-A f-C-375 Th [facility] omeprazole 20 mg oral delayed release tablet 1 tab(s), Oral, BID, before a meal, # 42 tab(s), 0 total refill(s ), Maintena nce Oral (given by mouth) Discont inued 04/11/20242023 42.0 6130C-A f-C-375 Th [facility] omeprazole 20 mg oral delayed release tablet 1 tab(s), Oral, BID, before a meal, # 180 tab(s), 1 total refill(s ), Maintena nce, Pharmacy : [facility] Oral (given by mouth) Discont inued 04/10/2025 4 2024 180.0 6130C-A f-C-375 Th [facility] omeprazole DR 20 mg capsule See Instruct ions, # 90 EA, 3 total refill(s ), Acute Complet ed 03/17/2024 4 2023 90.0 Ambulat ory Pharmac y ONDANSETRON ODT (ONDANSETRO N), 4MG, TAB RAPDIS, ORAL, [employer], 30 ea. BLIST PACK Active [id number] 2023 20 Pharmac y [employer] [facility] PROPRANOLOL 80 MG ORAL TAB Be careful if taking OTCs.Gurwinder e or use exactly as directed .May cause drowsine ss/dizzi ness. 04/11/2025 [id number] 4 2023 180 [facility] propranolol 80 mg oral tablet 1 tab(s), Oral, BID, # 180 tab(s), 2 total refill(s ), Maintena nce, Pharmacy : [facility] Oral (given by mouth) Ordered 5 2024 180.0 6130C-A f-C-375 Th [facility] propranolol 80 mg oral tablet tab(s), Oral, BID, 0 total refill(s ), Maintena nce Oral (given by mouth) Discont inued 04/11/20242023 6130C-A f-C-375 Th [facility] propranolol 80 mg oral tablet 1 tab(s), Oral, BID, # 180 tab(s), 2 total refill(s ), Maintena nce, Pharmacy : [facility] Oral (given by mouth) Discont inued 04/10/2025 4 2024 180.0 6130C-A f-C-375 Th [facility] propranolol ER 80 mg/24 hour capsule See Instruct ions, # 90 EA, 3 total refill(s ), Acute Complet ed 03/17/2024 4 2023 90.0 Ambulat ory Pharmac y Allergies, Adverse Reactions, Alerts Combined list of allergies from 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 It does not include entries that were removed or entered in error. Substance Category Reaction Severity Reaction type Status Date Reported Comments Source Macrobid Drug allergy Eruption of skin (disorder) Moderate Active 6130C-Af-C -[facility] No Known Allergies Drug allergy (disorder) active 8 [facility] Immunizations Combined list of available immunizations from the 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 Immunization Series Date Given Administered By Site Reaction Lot Number CVX Code Drug Gym Manager Status Comments Source pneumococcal 20-valent conjugate vaccine 2024 DAVID ELLIOTT Shoul simon, left (delt oid) [id number] Pfizer Inc complet ed pneumococ kenny 20-valent conjugate vaccine 04/10/25 Given 6130C-A f-C-375 Th [facility] zoster vaccine, inactivated 2020 zzLef t Arm [id number] GlaxoSmithKli ne complet ed zoster vaccine, inactivat ed 05/30/21 Given Ambulat ory Pharmac y zoster vaccine recombinant 1 2020 Unknown, Provider [id number] [facility] ([place]B) complet ed zoster vaccine recombina nt [facility] typhoid Vi capsular polysaccharid e vac 2020 zzLef t Arm [id number] sanofi pasteur complet ed typhoid Vi capsular polysacch aride vac 03/29/21 Given Ambulat ory Pharmac y Mal[place]ian Encephalitis IM 2020 zzRig ht Arm [id number] 134 Valneva complet ed [place] Encephali tis IM 03/29/21 Given Ambulat ory Pharmac y zoster vaccine, inactivated 2020 zzLef t Arm [id number] Lat49oSmAMENDIAKli ne complet ed zoster vaccine, inactivat ed 03/29/21 Given Ambulat ory Pharmac y anthrax vaccine 2020 zzLef t Arm [id number] 24 Emergent [employer] complet ed anthrax vaccine 03/29/21 Given Ambulat ory Pharmac y anthrax vaccine 4 2020 Unknown, Provider [id number] [employer] [place] (MIP) complet ed anthrax vaccine DoD typhoid Vi capsular polysaccharid e vaccine 1 2020 Unknown, Provider [id number] Sanofi Pasteur (PMC) complet ed typhoid Vi capsular polysacch aride vaccine DoD [place] Encephalitis vaccine for intramuscular administratio n 1 2020 Unknown, Provider [id number] 134 Valneva ([place]) complet ed [place] Encephali tis vaccine for intramusc ular administr ation DoD zoster vaccine recombinant 1 2020 Unknown, Provider [id number] Getonic ([place]) complet ed zoster vaccine recombina nt DoD COVID Vaccine Moderna 2020 zzLef t Arm [id number] complet ed COVID Vaccine Moderna 02/07/21 Given Ambulat ory Pharmac y SARS-COV-2 (COVID-19) vaccine, mRNA, spike protein, LNP, preservative free, 100 mcg or 50 mcg dose 2 2020 Unknown, Provider [id number] 207 Moderna [employer] (MOD) complet ed SARS-COV- 2 (COVID-19 ) vaccine, mRNA, spike protein, LNP, preservat diandra free, 100 mcg or 50 mcg dose DoD COVID Vaccine Moderna 2020 zzLef t Arm [id number] 207 complet ed COVID Vaccine Moderna 01/10/21 Given Ambulat ory Pharmac y SARS-COV-2 (COVID-19) vaccine, mRNA, spike protein, LNP, preservative free, 100 mcg or 50 mcg dose 1 2020 Unknown, Provider [id number] 207 [employer]. (MOD) complet ed SARS-COV- 2 (COVID-19 ) vaccine, mRNA, spike protein, LNP, preservat diandra free, 100 mcg or 50 mcg dose DoD tetanus-dipht h toxoids (Td) adult/adol 2018 [facility] Arm [id number] 09 sanofi pasteur complet ed tetanus-d iphth toxoids (Td) adult/ado l 10/04/19 Given Ambulat ory Pharmac y influenza, injectable, quadrivalent- pf 2018 [facility] Arm [id number] 150 Seqirus complet ed influenza , injectabl e, quadrival ent-pf 10/04/19 Given Ambulat ory Pharmac y tetanus and diphtheria toxoids, adsorbed, preservative free, for adult use (2 Lf of tetanus toxoid and 2 Lf of diphtheria toxoid) 3 2018 Unknown, Provider [id number] 09 Sanofi Pasteur (PMC) complet ed tetanus and diphtheri a toxoids, adsorbed, preservat diandra free, for adult use (2 Lf of tetanus toxoid and 2 Lf of diphtheri a toxoid) DoD Influenza, injectable, quadrivalent, preservative free 16 2018 Unknown, Provider [id number] 150 Seqirus (SEQ) complet ed Influenza , injectabl e, quadrival ent, preservat diandra free DoD influenza, injectable, quadrivalent- pf 2017 zJanay t Arm [id number] 150 GlaxoSmithKli ne complet ed influenza , injectabl e, quadrival ent-pf 08/24/18 Given Ambulat ory Pharmac y Influenza, injectable, quadrivalent, preservative free 1 2017 Unknown, Provider [id number] SmithKline ([place]) complet ed Influenza , injectabl e, quadrival ent, preservat diandra free DoD pneumococcal polysaccharid e, 23 valent 2011 DAVID ELLIOTT [id number] complet ed Result Comment: Manufactu rer: Merck Co 6130C-A f-C-375 [facility] influenza virus vaccine, live 2011 [id number] Medimmune Inc comple t ed influenza virus vaccine, live 07/30/12 Given Ambulat ory Pharmac y influenza virus vaccine, live, attenuated, for intranasal use 15 2011 Unknown, Provider [id number] 111 MedIune[employer] Inc. (MED) complet ed influenza virus vaccine, live, attenuate d, for intranasa l use DoD influenza virus vaccine, live 2010 [id number] 111 Medimmune Inc comple t ed influenza virus vaccine, live 09/04/11 Given Ambulat ory Pharmac y influenza virus vaccine, live, attenuated, for intranasal use 14 2010 Unknown, Provider [id number] 111 MedImmune, Inc. (MED) complet ed influenza virus vaccine, live, attenuate d, for intranasa l use DoD Novel influenza-H1N 1-09, injectable 2009 zzLef t Arm [id number] 127 Novartis Pharmaceutica complet ed Novel influenza -[id number], injectabl e 11/02/09 Given Ambulat ory Pharmac y Novel influenza-H1N 1-09, injectable 1 2009 Unknown, Provider [id number] 127 Novartis Pharmaceutica l Madeleine. (NOV) complet ed Novel influenza -[id number], injectabl e DoD influenza virus vaccine, live 2008 [id number] 111 Mediune Inc complet ed influenza virus vaccine, live 08/14/09 Given Ambulat ory Pharmac y influenza virus vaccine, live, attenuated, for intranasal use 1 2008 Unknown, Provider [id number] 111 MedImmune, Inc. (MED) complet ed influenza virus vaccine, live, attenuate d, for intranasa l use DoD influenza virus vaccine, live 2007 [id number] 111 Medimmune Inc comple t ed influenza virus vaccine, live 08/04/08 Given Ambulat ory Pharmac y influenza virus vaccine, live, attenuated, for intranasal use 1 2007 [id number] 111 MedImmune, Inc. (MED) complet ed influenza virus vaccine, live, attenuate d, for intranasa l use DoD influenza virus vaccine, live 2006 111 complet ed influenza virus vaccine, live 08/11/07 Given Ambulat ory Pharmac y influenza virus vaccine, live, attenuated, for intranasal use 1 2006 111 Transcribed (TRS) complet ed influenza virus vaccine, live, attenuate d, for intranasa l use DoD tetanus, diphtheria, acellular pertu is 2006 [id number] 115 sanofi pasteur complet ed tetanus, diphtheri a, acellular pertussis 02/16/07 Given Ambulat ory Pharmac y tetanus toxoid, reduced diphtheria toxoid, and acellular pertu is vaccine, adsorbed 1 2006 [id number] 115 Sanofi Pasteur (PMC) complet ed tetanus toxoid, reduced diphtheri a toxoid, and acellular pertussis vaccine, adsorbed DoD influenza virus vaccine,split 2005 [id number] 15 sanofi pasteur complet ed influenza virus vaccine,s plit 09/08/06 Given Ambulat ory Pharmac y influenza virus vaccine, split virus (incl. purified surface antigen)-reti red CODE 1 2005 [id number] Sanofi Pasteur ([facility]) complet ed influenza virus vaccine, split virus (incl. purified surface antigen)- retired CODE DoD influenza virus vaccine,split 2004 [id number] 15 sanofi pasteur complet ed influenza virus vaccine,s plit 09/08/05 Given Ambulat ory Pharmac y influenza virus vaccine, split virus (incl. purified surface antigen)-reti red CODE 1 2004 [id number] 15 Sanofi Pasteur ([facility]) complet ed influenza virus vaccine, split virus (incl. purified surface antigen)- retired CODE [facility] influenza virus vaccine, whole virus 2004 [id number] 16 sanofi pasteur complet ed influenza virus vaccine, whole virus 12/11/04 Given Ambulat ory Pharmac y influenza virus vaccine, whole virus 0 2004 [id number] 16 Sanofi Pasteur ([facility]) complet ed influenza virus vaccine, whole virus DoD tuberculin purified protein derivative 2003 Katie sanabria Arm [id number] Unknown complet ed Patient Tolerance : Negative Ambulat ory Pharmac y tuberculin skin test; purified protein derivative solution, intradermal 1 2003 Unknown, Provider [id number] Other (OTH) complet ed tuberculi n skin test; purified protein derivativ e solution, intraderm al DoD anthrax vaccine 2003 [id number] [employer] complet ed anthrax vaccine 08/09/04 Given Ambulat ory Pharmac y anthrax vaccine 4 2003 [id number] [employer] [place] ([facility]) complet ed anthrax vaccine DoD anthrax vaccine 2003 [id number] [employer] complet ed anthrax vaccine 12/25/03 Given Ambulat ory Pharmac y anthrax vaccine 3 2003 [id number] [employer] [place] ([facility]) complet ed anthrax vaccine DoD anthrax vaccine 2003 [id number] 24 [employer] complet ed anthrax vaccine 12/05/03 Given Ambulat ory Pharmac y anthrax vaccine 2 2003 [id number] [employer] [place] ([facility]) complet ed anthrax vaccine DoD vaccinia (smallpox) vaccine 0 2003 75 () Not Given vaccinia (smallpox ) vaccine DoD meningococcal polysaccharid e (MPSV4) 2003 [id number] [employer] complet ed meningoco ccal polysacch aride (MPSV4) 11/21/03 Given Ambulat ory Pharmac y anthrax vaccine 2003 [id number] [employer] complet ed anthrax vaccine 11/21/03 Given Ambulat ory Pharmac y typhoid Vi capsular polysaccharid e vac 2003 [id number] sanofi pasteur complet ed typhoid Vi capsular polysacch aride vac 11/21/03 Given Ambulat ory Pharmac y anthrax vaccine 1 2003 [id number] 24 [employer] [facility] ([facility]) complet ed anthrax vaccine DoD meningococcal polysaccharid e vaccine (MPSV4) 0 2003 [id number] [place] ([facility]) complet ed meningoco ccal polysacch aride vaccine (MPSV4) DoD typhoid Vi capsular polysaccharid e vaccine 0 2003 [id number] Sanofi Pasteur ([facility]) complet ed typhoid Vi capsular polysacch aride vaccine DoD influenza virus vaccine, whole virus 2002 [id number] 16 [facility] complet ed influenza virus vaccine, whole virus 08/30/03 Given Ambulat ory Pharmac y influenza virus vaccine, whole virus 0 2002 [id number] 16 [facility] ([facility]) complet ed influenza virus vaccine, whole virus DoD influenza virus vaccine, whole virus 2001 [id number] [employer] complet ed influenza virus vaccine, whole virus 09/06/02 Given Ambulat ory Pharmac y influenza virus vaccine, whole virus 0 2001 [id number] 16 [employer] ([facility]) complet ed influenza virus vaccine, whole virus DoD influenza virus vaccine, whole virus 2000 [id number] 16 sanofi pasteur complet ed influenza virus vaccine, whole virus 09/14/01 Given Ambulat ory Pharmac y influenza virus vaccine, whole virus 0 2000 [id number] 16 Sanofi Pasteur ([facility]) complet ed influenza virus vaccine, whole virus DoD tuberculin purified protein derivative 2000 zzLef t Arm [id number] 96 [facility] Patient Tolerance : Negative Ambulat ory Pharmac y tuberculin skin test; purified protein derivative solution, intradermal 1 2000 Unknown, Provider [id number] 96 [facility] ([facility]) complet ed tuberculi n skin test; purified protein derivativ e solution, intraderm al DoD influenza virus vaccine, whole virus 1999 [id number] 16 [employer] complet ed influenza virus vaccine, whole virus 10/05/00 Given Ambulat ory Pharmac y influenza virus vaccine, whole virus 0 1999 [id number] 16 [place] ([facility]) complet ed influenza virus vaccine, whole virus DoD influenza virus vaccine, whole virus 1998 [id number] 16 [facility] complet ed influenza virus vaccine, whole virus 08/29/99 Given Ambulat ory Pharmac y influenza virus vaccine, whole virus 0 1998 [id number] 16 [facility] ([facility]) complet ed influenza virus vaccine, whole virus DoD tuberculin purified protein derivative 1998 zzLef t Arm 96 complet ed Patient Tolerance : Negative Ambulat ory Pharmac y tuberculin skin test; purified protein derivative solution, intradermal 1 1998 Unknown, Provider 96 () complet ed tuberculi n skin test; purified protein derivativ e solution, intraderm al DoD influenza virus vaccine, whole virus [id number] [employer] complet ed influenza virus vaccine, whole virus 08/23/98 Given Ambulat ory Pharmac y influenza virus vaccine, whole virus 0 [id number] 16 [facility] influenza virus vaccine, whole virus DoD typhoid vaccine, live, oral 1997 [id number] 25 [employer] [place] [employer] complet ed typhoid vaccine, live, oral 01/03/98 Given Ambulat ory Pharmac y typhoid vaccine, live, oral 0 1997 [id number] 25 [place] [employer] [facility] ([facility]) complet ed typhoid vaccine, live, oral DoD hepatitis A adult vaccine 1996 52 complet ed hepatitis A adult vaccine 08/23/97 Given Ambulat ory Pharmac y influenza virus vaccine, whole virus 1996 16 complet ed influenza virus vaccine, whole virus 08/23/97 Given Ambulat ory Pharmac y influenza virus vaccine, whole virus 0 1996 16 () complet ed influenza virus vaccine, whole virus DoD hepatitis A vaccine, adult dosage 2 1996 52 () complet ed hepatitis A vaccine, adult dosage DoD typhoid, parenteral, AKD 1996 [id number] 53 [place] [employer] complet ed typhoid, parentera l, AKD 01/26/97 Given Ambulat ory Pharmac y hepatitis A adult vaccine 1996 52 complet ed hepatitis A adult vaccine 01/26/97 Given Ambulat ory Pharmac y yellow fever vaccine 1996 [id number] [place] [employer] complet ed yellow fever vaccine 01/26/97 Given Ambulat ory Pharmac y tetanus-dipht h toxoids (Td) adult/adol 1996 09 complet ed tetanus-d iphth toxoids (Td) adult/ado l 01/26/97 Given Ambulat ory Pharmac y tetanus and diphtheria toxoids, adsorbed, preservative free, for adult use (2 Lf of tetanus toxoid and 2 Lf of diphtheria toxoid) 0 1996 09 () complet ed tetanus and diphtheri a toxoids, adsorbed, preservat diandra free, for adult use (2 Lf of tetanus toxoid and 2 Lf of diphtheri a toxoid) DoD yellow fever vaccine 0 1996 [id number] 37 [place] [employer] ([place]) complet ed yellow fever vaccine DoD hepatitis A vaccine, adult dosage 1 1996 52 () complet ed hepatitis A vaccine, adult dosage DoD typhoid vaccine, parenteral, acetone-alexsander d, dried ([place].S. ) 1 1996 [id number] 53 [place] [employer] ([facility]) complet ed typhoid vaccine, parentera l, acetone-k tramained, dried ([place]. ) DoD poliovirus vaccine, live, oral 1983 02 complet ed polioviru s vaccine, live, oral 07/20/84 Given Ambulat ory Pharmac y trivalent poliovirus vaccine, live, oral 0 1983 02 () complet ed trivalent polioviru s vaccine, live, oral DoD measles and rubella virus vaccine 0 1983 04 () Not Given measles and rubella virus vaccine DoD poliovirus vaccine, live, oral 1983 02 complet ed polioviru s vaccine, live, oral 06/26/84 Given Ambulat ory Pharmac y trivalent poliovirus vaccine, live, oral 0 1983 02 () complet ed trivalent polioviru s vaccine, live, oral DoD measles and rubella virus vaccine 0 1983 04 () Not Given measles and rubella virus vaccine DoD poliovirus vaccine, live, oral 1968 02 complet ed polioviru s vaccine, live, oral 01/05/69 Given Ambulat ory Pharmac y measles/mumps /rubella virus vaccine 1968 03 complet ed measles/m umps/rube lla virus vaccine 01/05/69 Given Ambulat ory Pharmac y trivalent poliovirus vaccine, live, oral 0 1968 02 () complet ed trivalent polioviru s vaccine, live, oral DoD measles, mumps and rubella virus vaccine 0 1968 03 () complet ed measles, mumps and rubella virus vaccine DoD Results Combined list of recent chemistry, hematology and other laboratory results from [facility], ranging from 15 months to all on record, depending upon the facility. Order Name Results Value Reference Range Date Interpretation Specimen Comments Source Chemistr y Ur Creat 46 mg/dL 04/10 [facility] Chemistr y Ur Microalbum in 44 mg/L 04/10 H Interpretiv e Data: To minimize intra-indiv idual variation, analysis of three random urine samples collected over the course of a week has also been recommended . [facility] Urinalys is UA Protein Negative mg/dL 04/10 N 0055A-375 th [facility] Urinalys is UA pH 6.5 *NA* (04/10/25 10:26 AM) 5 - 8 04/10 0055A-375 th [facility] Urinalys is UA Spec Bath 1.020 1.001 - 1.035 04/10 N 0055A-375 th [facility] Urinalys is UA RBC 3-4 /HPF 04/10 N 0055A-375 th [facility] Urinalys is UA Nitrite Negative (04/10/25 10:26 AM) 04/10 N 0055A-375 th [facility] Urinalys is UA Bacteria 2+ *ABN* (04/10/25 10:26 AM) 04/10 A 0055A-375 th [facility] Urinalys is UA WBC 20-25 /HPF 04/10 A 0055A-375 th [facility] Urinalys is UA Urobilinog en 0.2 E.U./dL 0.2 - 1.0.. 04/10 N 0055A-375 th [facility] Urinalys is UA Blood Small *ABN* (04/10/25 10:26 AM) 04/10 A 0055A-375 th [facility] Urinalys is UA Bili Negative (04/10/25 10:26 AM) Negative 04/10 N 0055A-375 th [facility] Urinalys is UA Clarity Slightly Cloudy *NA* (04/10/25 10:26 AM) 04/10 0055A-375 th [facility] Urinalys is UA Glucose Negative mg/dL Negative 04/10 N 0055A-375 th [facility] Urinalys is UA Epi Squam 3-4 (04/10/25 10:26 AM) 04/10 N 0055A-375 th [facility] Urinalys is UA Leuk Esterase Moderate *ABN* (04/10/25 10:26 AM) Negative 04/10 A 0055A-375 th [facility] Urinalys is UA Ketones Negative mg/dL Negative 04/10 N [facility] Urinalys is UA Color Yellow *NA* (04/10/25 10:26 AM) 04/10 [facility] Chemistr y eGFR CKD EPI 101 mL/min/1 .73_m2 04/10 Interpretiv e Data: Estimated Glomerular Filtration Rate (eGFR) calculated using the 2020 Chronic Kidney Disease-Epi demiology (CKD-EPI) Collaborati on creatinine equation; units of measure are mL/min/1.73 m2. Results are only valid for adults (>=18 years) whose serum creatinine is in steady state. eGFR calculation s are not valid for patients with acute kidney injury and for patients on dialysis. Creatinine- based estimates of kidney function may also be inaccurate in patients with reduced creatinine generation due to decreased muscle mass (e.g., malnutritio n, severe hypoalbumin emia, sarcopenia, chronic neuromuscul ar disease, amputations , severe heart failure or liver disease) and in patients with increased creatinine generation due to increased muscle mass (e.g., muscle builders, anabolic steroids) or increased dietary intake. CKD is diagnosed based on abnormaliti es of kidney structure or function, present for >3 months, with implication s for health and disease. CKD is classified and staged based on cause, eGFR and albuminuria (quantified as urine albumin to creatinine ratio). An eGFR >60 mL/min/1.73 m2 in the absence of increased urine albumin excretion or structural abnormaliti es does not CKD. eGFR provides only an estimate of measured GFR within +/- 30% for most patients. As mentioned, nutritional status and muscle mass, among many factors, may lead to inaccuracy in the estimate. Consider ordering the creatinine- cystatin C panel if better accuracy is needed for clinical decision-roseanne harrell. eGFR (mL/min/1.7 3 m2) CKD stage Interpretat ion Normal 60-89 Mild decrease 45-59 Mild to moderate decrease 30-44 Moderate to severe decrease 15-29 Severe decrease <15 Kidney failure [facility] Chemistr y Hemoglobin A1c 5.6 % 4.0 - 5.6 04/10 N Interpretiv e Data: Normal: 4.0 - 5.6% Increased Risk: 5.7 - 6.4% Diabetic Range: 6.5% For patients without diabetes, the normal range for the hemoglobin A1c test is between 4% and 5.6%. Hemoglobin A1c levels between 5.7% and 6.4% indicate increased risk of diabetes, and levels of 6.5% or higher indicate diabetes. Because studies have repeatedly shown that out-of-cont rol diabetes results in complicatio ns from the disease, the goal for people with diabetes is a hemoglobin A1c less than 7%. The higher the hemoglobin A1c, the higher the risks of developing complicatio ns related to diabetes. If confirmatio n is needed, consider recalling the patient and ordering Hemoglobin Electrophor esis. [facility] Chemistr y eAvg Glucose 114 mg/dL 04/10 [facility] Chemistr y Triglyceri precious 104 mg/dL 7 - 149 04/10 N Interpretiv e Data: AGES 0-9: Desirable: < 75 mg/dL Borderline High: 75-99 mg/dL High: >/= 100 mg/dL AGES 10-19: Desirable: < 90 mg/dL Borderline High: 90-129 mg/dL High: >/= 130 mg/dL ADULTS: Desirable: < 150 mg/dL Borderline High: 150-199 mg/dL High: >/= 240 mg/dL Very High: >/= 500 mg/dL [facility] Chemistr y LDL/HDL 2 04/10 [facility] Chemistr y LDL 104 mg/dL 100 - 130 04/10 N Interpretiv e Data: AGES 0-19: Desirable: < 110 mg/dL Borderline High: 110-129 mg/dL High: >/= 130 mg/dL ADULTS: Desirable: <100 mg/dL Near/above optimal: 100-130 mg/dL Borderline High: 131-159 mg/dL High: 160-189 mg/dL Very High: 190 mg/dL [facility] Chemistr y HDL Cholestero l 55 mg/dL 40 - 59 04/10 N Interpretiv e Data: HDL (HIGH DENSITY LIPOPROTEIN ): ADULTS: Low: < 40 mg/dL High: >/= 60 mg/dL AGES 0 -19: Low: < 40 mg/dL Borderline Low: 40 - 45 mg/dL Acceptable: > 45 mg/dL [facility] Chemistr y Cholestero l Total 159 mg/dL 04/10 N Interpretiv e Data: According to the [place] [employer] : AGES 0-19: Desirable: < 170 mg/dL Borderline High: 170-199 mg/dL High Blood Cholesterol : >/= 200 mg/dL ADULTS: Desirable < 200 mg/dL Borderline High: 200-239 mg/dL High Blood Cholesterol : >/= 240 mg/dL [facility] Chemistr y Chol/HDL 3 mg/dL 04/10 [facility] Chemistr y AST 30 U/L 5 - 34 04/10 N [facility] Chemistr y Protein Total 7.2 g/dL 6.4 - 8.3 04/10 N [facility] Chemistr y Bilirubin Total 0.3 mg/dL 0.2 - 1.2 04/10 N [facility] Chemistr y Sodium 142 mmol/L 136 - 145 04/10 N [facility] Chemistr y BUN 16 mg/dL 7 - 20 04/10 N [facility] Chemistr y Alk Phos 92 U/L 40 - 150 04/10 N [facility] Chemistr y Calcium 9.7 mg/dL 8.4 - 10.2 04/10 N [facility] Chemistr y BUN/Creat Ratio 26 mg/dL 12 - 20 04/10 H [facility] Chemistr y ALT 31 U/L 5 - 55 04/10 N [facility] Chemistr y Potassium Lvl 4.6 mmol/L 3.5 - 5.1 04/10 N [facility] Chemistr y Glucose Lvl 96 mg/dL 74 - 99 04/10 N [id number] [facility] Chemistr y Creatinine Level 0.62 mg/dL 0.57 - 1.11 04/10 N [id number] [facility] Chemistr y CO2 27 mmol/L 22 - 29 04/10 N [id number] [facility] Chemistr y Chloride 108 mmol/L 98 - 107 04/10 H [id number] [facility] Chemistr y Albumin 3.90 g/dL 3.50 - 5.20 04/10 N [id number] [facility] Chemistr y AGAP 7.00 0.00 - 15.00 04/10 N [id number]-375 [facility] Urinalys is UA Leuk Esterase Moderate *ABN* (04/10/25 8:50 AM) Negative 04/10 A [id number]-375 [facility] Urinalys is UA Nitrite Positive *ABN* (04/10/25 8:50 AM) Negative 04/10 A 0055A-375 [facility] Urinalys is UA Glucose Negative mg/dL Negative 04/10 N [id number]-375 [facility] Urinalys is UA Appear Slightly cloudy *ABN* (04/10/25 8:50 AM) Clear 04/10 A [id number]-375 [facility] Urinalys is UA Color Yellow *NA* (04/10/25 8:50 AM) 04/10 0055A-375 [facility] Urinalys is UA Protein Negative mg/dL Negative 04/10 N [id number]-375 [facility] Molecula r Infectio us Disease [place] a vaginalis Negative (05/20/24 12:38 PM) 05/20 N [id number]-375 [facility] Molecula r Infectio us Disease [place] Species Positive *ABN* (05/20/24 12:38 PM) 05/20 A 0055A-375 [facility] Molecula r Infectio us Disease Trichomona s vaginalis Negative (05/20/24 12:38 PM) 05/20 N 0055A-375 th [facility] AP Specimen s 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 [id number] Cytology Gynecolo gic Report Patient: Patricia Garcia Specimen #: [id number] [id number]: [id number] Taken: 4 12:38 /Age: 3 4 (Age: 59) Received : 4 11:53 Physicia n(s:): ALEXSANDRA DICK Reporte d: 05/26/2024 Specimen (s) Received Taken Rec Thin Prep - Cervical w/o reflex HPV 4 12:38 4 11:53 Final Diagnosi s Thin Prep - Cervical w/o reflex HPV: Satisfac tory for evaluati on; endocerv ical componen t present. Negative for intraepi thelial lesion or malignan cy. This Pap test was evaluate d with the assistan ce of the Thin Prep Test Imaging System. Due to cytologi c findings at the Sales Support Representative microsco pe or selectio n of the case for QC, comprehe nsive manual re-scree jean by a cytotech nologist was required . 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 It is not designed to detect glandula r lesions. A negative test does not ensure that no disease is present. 05/20 [id number]-375 th [facility] AP Specimen s HPV Genotype 16 Negative 18 (05/20/24 12:38 PM) 05/20 N Interpretiv e Data: HPV GENOTYPE 16 Negative: NEGATIVE for HPV DNA genotype 16 DNA. HPV GENOTYPE 16 Positive: POSITIVE for HPV genotype 16 DNA. The lindsey HPV Test is a qualitative in vitro test for the detection Human Papillomavi gaby in clinician-c ollected cervical and vaginal specimens. It detects the following high-risk HPV types 16, 18, 31, 33, 35, 39, 45, 51, 52, 56, 58, 66, and 68. Note: The modificatio n to specimen source of vaginal was developed and its performance characteris tics determined by [facility]. Vaginal source has not been cleared or approved by the U. S. Food and Drug Administrat Vis[employer]. This modified vaginal specimen HPV test is for clinical purposes. This laboratory is certified under the Clinical Laboratory Improvement Amendments of 1988 (CLIA-88) as qualified to perform high complexity clinical laboratory testing. Clinician collected PreservCyt ThinPrep vaginal specimen are an approved additional specimen source, based on an internal laboratory validation. Limitations : A negative result does NOT preclude the presence of HPV infection because results depend on adequate specimen collection, absence of inhibitors and sufficient DNA to be detected. Correlation with cytologic findings is recommended as applicable. Questions about process or methodology contact Molecular Department at or [phone]. Unknown Organizat ion AP Specimen s HPV Typing High Risk Negative 17 (05/20/24 12:38 PM) 05/20 N Interpretiv e Data: HPV Typing High Risk Negative: NEGATIVE for concurrentl y detecting the rest of the 12 high risk types HPV DNA (31,33,35,3 9,45,51,52, 56,58,59,66 and 68) without differentia tion. HPV Typing High Risk Positive: POSITIVE for concurrentl y detecting the rest of the 12 high risk types HPV DNA (31,33,35,3 9,45,51,52, 56,58,59,66 and 68) without differentia tion. The lindsey HPV Test is a qualitative in vitro test for the detection Human Papillomavi gaby in clinician-c ollected cervical and vaginal specimens. It detects the following high-risk HPV types 16, 18, 31, 33, 35, 39, 45, 51, 52, 56, 58, 66, and 68. Note: The modificatio n to specimen source of vaginal was developed and its performance characteris tics determined by [facility]. Vaginal source has not been cleared or approved by the U. S. Food and Drug Administrat Vis[employer]. This modified vaginal specimen HPV test is for clinical purposes. This laboratory is certified under the Clinical Laboratory Improvement Amendments of 1988 (CLIA-88) as qualified to perform high complexity clinical laboratory testing. Clinician collected PreservCyt ThinPrep vaginal specimen are an approved additional specimen source, based on an internal laboratory validation. Limitations : A negative result does NOT preclude the presence of HPV infection because results depend on adequate specimen collection, absence of inhibitors and sufficient DNA to be detected. Correlation with cytologic findings is recommended as applicable. Questions about process or methodology contact Molecular Department at [phone] or [phone]. [facility] Specimen s HPV Genotype 18 Negative 16 (05/20/24 12:38 PM) 05/20 N Interpretiv e Data: HPV GENOTYPE 18 Negative: NEGATIVE for HPV genotype 18 DNA. HPV GENOTYPE 18 Positive: POSITIVE for HPV genotype 18 DNA. The lindsey HPV Test is a qualitative in vitro test for the detection Human Papillomavi gaby in clinician-c ollected cervical and vaginal specimens. It detects the following high-risk HPV types 16, 18, 31, 33, 35, 39, 45, 51, 52, 56, 58, 66, and 68. Note: The modificatio n to specimen source of vaginal was developed and its performance characteris tics determined by [employer] [employer], [facility]. Vaginal source has not been cleared or approved by the U. S. Food and Drug Administrat Vis[employer]. This modified vaginal specimen HPV test is for clinical purposes. This laboratory is certified under the Clinical Laboratory Improvement Amendments of 1988 (CLIA-88) as qualified to perform high complexity clinical laboratory testing. Clinician collected PreservCyt ThinPrep vaginal specimen are an approved additional specimen source, based on an internal laboratory validation. Limitations : A negative result does NOT preclude the presence of HPV infection because results depend on adequate specimen collection, absence of inhibitors and sufficient DNA to be detected. Correlation with cytologic findings is recommended as applicable. Questions about process or methodology contact Molecular Department at [phone]. Unknown Organizat ion Urinalys is UA Bacteria 3+ *ABN* (05/20/24 11:54 AM) 05/20 A 0055A-375 th [facility] Urinalys is UA Bili Negative (05/20/24 11:54 AM) 05/20 N [id number] [facility] Urinalys is UA Ketones Negative mg/dL 05/20 N 375 [facility] Urinalys is UA Glucose Negative mg/dL 05/20 N 375 [facility] Urinalys is UA Nitrite Positive *ABN* (05/20/24 11:54 AM) 05/20 A [id number]-375 [facility] Urinalys is UA Leuk Esterase Moderate *ABN* (05/20/24 11:54 AM) 05/20 A [id number]-375 [facility] Urinalys is UA Epi Squam 3-4 (05/20/24 11:54 AM) 05/20 N [id number] [facility] Urinalys is UA Protein Negative mg/dL 05/20 N [id number] [facility] Urinalys is UA Spec Bath 1.020 1.001 - 1.035 05/20 N [id number] [facility] Urinalys is UA RBC 10-14 /HPF 05/20 A [id number] [facility] Urinalys is UA WBC TNTC /HPF 05/20 A [id number] [facility] Urinalys is UA Amorph Crystal 1+ /HPF 05/20 N [id number] [facility] Urinalys is UA Urobilinog en 0.2 E.U./dL 0.2 - 1.0.. 05/20 N 005 [facility] Urinalys is UA pH 5.5 5 - 8 05/20-375 [facility] Urinalys is UA Blood Small *NA* (05/20/24 11:54 AM) 05/20-375 [facility] is UA Color Yellow *NA* (05/20/24 11:54 AM) 05/20-375 [facility] is UA Clarity Slightly Cloudy 05/20-375 [facility] is UA Ketones Negative mg/dL 04/11 N - [facility] is UA Clarity Cloudy *NA* (04/11/24 10:40 AM) 04/11-375 [facility] is UA Bili Negative (04/11/24 10:40 AM) 04/11 N -375 [facility] is UA Blood Small *NA* (04/11/24 10:40 AM) 04/11-375 [facility] is UA Bacteria 2+ *ABN* (04/11/24 10:40 AM) 04/11 A 0055A-375 th [facility] is UA WBC TNTC /HPF 04/11 A 0055A-375 [facility] is UA RBC 3-4 /HPF 04/11 N -375 [facility] is UA Spec Bath 1.020 1.001 - 1.035 04/11 N -375 [facility] is UA Urobilinog en 0.2 E.U./dL 0.2 - 1.0.. 04/11 N -375 [facility] is UA Nitrite Positive *ABN* (04/11/24 10:40 AM) 04/11 A 0055A-375 th [facility] is UA Epi Squam 3-4 04/11- [facility] is UA pH 6.0 *NA* (04/11/24 10:40 AM) 5 - 8 04/11- [facility] is UA Glucose Negative mg/dL 04/11 N [facility] is UA Protein Negative mg/dL 04/11 N [facility] is UA Color Yellow *NA* (04/11/24 10:40 AM) 04/11 [facility] is UA Leuk Esterase Moderate *ABN* (04/11/24 10:40 AM) 04/11 A [facility] Chemistr y Glucose Lvl 101 mg/dL 74 - 99 02/04 H [facility] Sodium 141 mmol/L 136 - 145 02/04 N [facility]ist[facility] Potassium Lvl 3.9 mmol/L 3.5 - 5.1 02/04 N [facility] Chemist[facility] Protein Total 7.7 g/dL 6.4 - 8.3 02/04 N [facility] Chemist[facility] BUN/Creat Ratio 22 mg/dL 12 - 20 02/04 H [facility] Chemist[facility] y Chloride 109 mmol/L 98 - 107 02/04 H [facility] Chemist[facility] y Calcium 10.5 mg/dL 8.4 - 10.2 02/04 H [facility]ist[facility] Creatinine Level 0.60 mg/dL 0.57 - 1.11 02/04 N 375 [facility] Chemist[facility] y CO2 23 mmol/L 22 - 29 02/04 N [facility] Chemist[facility] y Albumin 4.00 g/dL 3.50 - 5.20 02/04 N [facility] Chemist[facility] y AGAP 9.00 0.00 - 15.00 02/04 N 375 [facility]ist[facility] Alk Phos 89 U/L 40 - 150 02/04 N 375 [facility] Chemist[facility] Bilirubin Total 0.5 mg/dL 0.2 - 1.2 02/04 N -375 [facility] Chemist[facility] y BUN 13 mg/dL 7 - 20 02/04 N 375 [facility] Chemist[facility] y ALT 24 U/L 5 - 55 02/04 N 375 [facility] Chemist[facility] y AST 16 U/L 5 - 34 02/04 N 375 [facility] Hematolo [facility] RDW 13.6 % 11.0 - 14.9 02/04 N 375 [facility] MCH 30 pg 28 - 33 02/04 N 375 [facility] Hemoglobin 14.5 g/dL 11.0 - 15.0 02/04 N 375 [facility] WBC 7.0 x10^3/mc L 4.0 - 11.0103 02/04 N 375 [facility] MCV 91 fL 80 - 97 02/04 N 375 [facility] MCHC 33.0 g/dL 33.0 - 36.5 02/04 N 375 [facility] MPV 11.2 fL 7.4 - 10.4 02/04 H 5A-375 [facility] RBC 4.8 x10^6/mc L 3.6 - 5.0106 02/04 N 375 [facility] Hematocrit 44 % 34 - 46 02/04 N 0055A375 [facility] Differenti al? Auto (02/05/24 1:46 PM) 02/04 N - [facility] Platelets 208.0 x10^3/mc L 150.0 - 450.0103 02/04 N - [facility] Chemistr y TSH 0.676 mIU/L 0.270 - 4.200 02/04 N Interpretiv e Data: Recommend: TPO/Thyrope roxidase Antibody when TSH result is > 4.2 uIU/mL 5600A-[facility] EPILAB Immunolo gy/Serol ogy Hep B Surface Ag Negative 10 (02/05/24 1:46 PM) 02/04 N Interpretiv e Data: NEGATIVE: Specimen is negative for HBsAg. CONFIRM INDICATED: Specimen is presumptive positive for HBsAg. Result will be confirmed with a neutralizat ion assay. Testing performed by electrochem iluminescen ce immunoassay . Any laboratory test result should be interpreted in conjunction with the patient's clinical presentatio n and the results of other diagnostic tests. A negative result on a given laboratory assay does not by itself rule out the possibility of infection. Notifiable result/cond ition for Local/State PH department, notify your local public health immediately for proper notificatio n. [facility] FS[facility] EPILAB Immunolo gy/Serol ogy Hep C Ab Negative 6 (02/05/24 1:46 PM) 02/04 N Interpretiv e Data: NEGATIVE - Antibodies to HCV were not detected; does not exclude the possibility of exposure to HCV. PRESUMPTIVE POSITIVE - Presumptive evidence of antibodies to HCV. Follow CDC recommendat ions for supplementa l testing. Refer to updated guidance Testing HCV Infection: An Update of Guidance for Clinicians and Laboratoria ns for additional information and recommended HCV testing algorithm (Centers for Disease Control and Prevention, MMWR Early Release / Vol. 62 / March 01, 2013). Notifiable result/cond ition for Local/State PH department, notify your local public health immediately for proper notificatio n. Testing performed by electrochem iluminShanghai Ulti[employer]en Games Information Technologycen ce. [facility] FS[facility] EPILAB Immunolo gy/Serol ogy Hep B Surface Ab Positive 11 (02/05/24 1:46 PM) 02/04 N Interpretiv e Data: NEGATIVE: Individual is considered to be not immune to infection with HBV. EQUIVOCAL: Unable to determine if anti-HBs is present at levels consistent with immunity. The individual should be further assessed by associated risk factors and the use of additional diagnostic information . Another specimen may be collected and tested. POSITIVE: Anti-HBs concentrati on detected at > 10 mIU/mL. Individual is considered to be immune to infection with HBV. The performance characteris tics of this assay have not been evaluated for use in pediatric populations . Testing performed by electrochem iluminescen ce. [employer] FSAM EPILAB Immunolo gy/Serol ogy Hep B Core Ab Positive 13 *ABN* (02/05/24 1:46 PM) 02/04 A Interpretiv e Data: NEGATIVE: Antibodies to HBc were not detected; does not exclude the possibility of exposure to HBV. POSITIVE: Presumptive evidence of antibodies to HBc. Follow CDC recommendat ions for supplementa l testing. The performance characteris tics of this assay have not been evaluated for use in pediatric populations . Testing performed by electrochem iluminescen ce immunoassay . [employer] FSAM EPILAB Chemistr y Ferritin Lvl 172.00 ng/mL 13.00 - 150.00 02/04 H Interpretiv e Data: METHODOLOGY : Testing performed by electrochem iluminescen t immunoassay (ECLIA). [employer] FSAM EPILAB Chemistr y Ur Creat 96 mg/dL 02/04- [facility] Chemist[facility] y Ur Microalb/U r Creat Ratio 72 mg/gCr 02/04 H [facility] Chemistr y Ur Microalbum in 69 mg/L 02/04 H Interpretiv e Data: To minimize intra-indiv idual variation, analysis of three random urine samples collected over the course of a week has also been recommended . - [facility] Hematolo [facility] Stearns Absolute 0.3 x10^3/mc L 0.2 - 0.8103 02/04 N [facility] Lymph Absolute 1.7 x10^3/mc L 1.2 - 4.0103 02/04 N [facility] Neutro Absolute 4.9 x10^3/mc L 2.0 - 7.0103 02/04 N 375 [facility] Monocyte % Auto 4 % 1 - 12 02/04 N [facility] Neutrophil % Auto 69.9 % 46.0 - 77.0 02/04 N [facility] Baso Absolute 0.0 x10^3/mc L 0.0 - 0.1103 02/04 N [facility] Eos Absolute 0.1 x10^3/mc L 0.0 - 0.7103 02/04 N [facility]emat[facility] Basophil % Auto 0.4 % 0.0 - 2.5 02/04 N [facility] Hematolo gy Lymphocyte % Auto 23.7 % 20.0 - 40.0 02/04 N [facility]emat[facility] Eosinophil % Auto 2 % 0 - 5 02/04 N [facility] Chemistr y UIBC, 183.0 ug/dL 112.0 - 347.0 02/04 N [facility] Chemistr y Transferri n Sat 36 % 14 - 50 02/04 N [facility] EP[facility] Chemistr y TIBC 287 ug/dL 250 - 400 02/04 N [facility] EP[facility]AB Chemistr y Iron 104 ug/dL 37 - 145 02/04 N Interpretiv e Data: METHODOLOGY : Testing performed by colorimetri c assay. [facility] EPILAB Immunolo gy/Serol ogy Hep B Core Ab IgM Negative 14 (02/05/24 1:46 PM) 02/04 N Interpretiv e Data: NEGATIVE: IgM antibodies for hepatitis B core antigen not detected. Does not exclude the possibility of exposure to infection with hepatitis B virus. POSITIVE: Presumptive evidence of IgM antibodies to HBc. Follow CDC recommendat ions for ancillary testing. Notifiable result/cond ition for Local/State PH department, notify your local public health immediately for proper notificatio n. The performance characteris tics of this assay have not been evaluated for use in pediatric populations . Testing performed by electrochem iluminGiggzon ce immunoassay . 5600AHatsize FSAM EPILAB Chemistr y eGFR CKD EPI 103 mL/min/1 .73_m2 02/04 Interpretiv e Data: Estimated Glomerular Filtration Rate (eGFR) calculated using the 2020 Chronic Kidney Disease-Epi demiology (CKD-EPI) Collaborati on creatinine equation; units of measure are mL/min/1.73 m2. Results are only valid for adults (>=18 years) whose serum creatinine is in steady state. eGFR calculation s are not valid for patients with acute kidney injury and for patients on dialysis. Creatinine- based estimates of kidney function may also be inaccurate in patients with reduced creatinine generation due to decreased muscle mass (e.g., malnutritio n, severe hypoalbumin emia, sarcopenia, chronic neuromuscul ar disease, amputations , severe heart failure or liver disease) and in patients with increased creatinine generation due to increased muscle mass (e.g., muscle builders, anabolic steroids) or increased dietary intake. CKD is diagnosed based on abnormaliti es of kidney structure or function, present for >3 months, with implication s for health and disease. CKD is classified and staged based on cause, eGFR and albuminuria (quantified as urine albumin to creatinine ratio). An eGFR >60 mL/min/1.73 m2 in the absence of increased urine albumin excretion or structural abnormaliti es does not CKD. eGFR provides only an estimate of measured GFR within +/- 30% for most patients. As mentioned, nutritional status and muscle mass, among many factors, may lead to inaccuracy in the estimate. Consider ordering the creatinine- cystatin C panel if better accuracy is needed for clinical decision-roseanne harrell. eGFR (mL/min/1.7 3 m2) CKD stage Interpretat ion Normal 60-89 Mild decrease 45-59 Mild to moderate decrease 30-44 Moderate to severe decrease 15-29 Severe decrease <15 [facility] Vital Signs Combined list of inpatient and outpatient Vital Signs from Department of Defense and Veterans Affairs, ranging from 12 months to all on record, depending upon the facility. Vital Sign Value Date Comments Source Systolic Blood Pressure 123 mm[Hg] 04/10/2025 12:59:00 2899Y-Oz-L-375Th [facility] Diastolic Blood Pressure 71 mm[Hg] 04/10/2025 12:59:00 8280V-Vo-O-[facility]Th [facility] Blood Pressure Manual Automatic 04/10/2025 12:59:00 4518D-Vx-K-[facility] BP Site Right arm 04/10/2025 12:59:00 6130C -Af-C-[facility] Temperature Oral 36.9 Marina 04/10/2025 12:59:00 2731L-Ck-F-[facility] Respiratory Rate 16 br/min 04/10/2025 12:59:00 7156M-Lf-O-[facility] Peripheral Pulse Rate 78 bpm 04/10/2025 12:59:00 5238B-Hg-P-375Th [facility] Mean Arterial Pressure, Calc 88 mm[Hg] 04/10/2025 12:59:00 4680L-Sw-X-3 75Th [facility] Mean Arterial Pressure, Calc 102 mm[Hg] 04/01/2024 19:13:00 6381V-Nq-Y-3 75Th [facility] Peripheral Pulse Rate 74 bpm 04/01/2024 19:13:00 2071S-Sv-J-375Th [facility] Respiratory Rate 14 br/min 04/01/2024 19:13:00 0035O-Lm-C-375[facility] Systolic Blood Pressure 131 mm[Hg] 04/01/2024 19:13:00 4529U-Ww-Y-375Th [facility] Diastolic Blood Pressure 88 mm[Hg] 04/01/2024 19:13:00 9716U-Td-U-375Th [facility] BP Site Left arm 04/01/2024 19:13:00 6130C -Af-C-375Th [facility] Blood Pressure Manual Automatic 04/01/2024 19:13:00 1281Q-Fa-N-375Th [facility] Systolic Blood Pressure 136 mm[Hg] 05/20/2024 16:05:00 0055C-375th [facility] Diastolic Blood Pressure 89 mm[Hg] 05/20/2024 16:05:00 0055C-375th [facility] Respiratory Rate 16 br/min 05/20/2024 16:05:00 0055C-375th [facility] Peripheral Pulse Rate 78 bpm 05/20/2024 16:05:00 0055C-375th [facility] Mean Arterial Pressure, Calc 105 mm[Hg] 05/20/2024 16:05:00 0055C-375th [facility] Blood Pressure Manual Automatic 01/21/2024 20:07:00 8642P-Ex-D-375Th [facility] Peripheral Pulse Rate 73 bpm 01/21/2024 20:07:00 4052A-Ot-U-375Th [facility] Systolic Blood Pressure 125 mm[Hg] 01/21/2024 20:07:00 1494B-Uk-S-375Th [facility] Diastolic Blood Pressure 75 mm[Hg] 01/21/2024 20:07:00 1835C-Ky-C-375Th [facility] Mean Arterial Pressure, Calc 92 mm[Hg] 01/21/2024 20:07:00 3897P-Qd-P-3 75Th [facility] Encounters Combined list of: 1) Encounters from Department of Veterans Affairs facilities going backup to the last 18 months, not all VA inpatient encounters are included; 2) Encounters from the Department of Defense facilities going backup to 280 months. Location Location Details Encounter Type Encounter Number Reason For Visit Attending Provider ADM Date DC Date Status Disposition Source [facility]) TELE CONSULT [id number] MISSED TUES APPT NEEDS REFERRA L FOR KORINA SAUCEDO 11/20 [facility]) [facility]) OUTPATIENT [id number] back pain x 3days RINA DURBIN 03/09 Released w/o Limitations [facility]) [facility]) OUTPATIENT [id number] muscle spasm RINA DURBIN 03/10 Released w/o Limitations [facility]) [facility] ) OUTPATIENT [id number] annual check for glasses PRATEEK QUISPE 06/11 Released w/o Limitations [facility]) [facility]) OUTPATIENT [id number] lump on leg SHELBY THOMAS 06/24 Released w/o Limitations [facility]) [facility]) OUTPATIENT [id number] eval on the previou s surgery GLENN CARRASCO T 12/08 Released w/o Limitations [facility]) [facility]) OUTPATIENT [id number] well woman GLENN CARRASCO T 12/15 Released w/o Limitations [facility]) [facility]) OUTPATIENT [id number] cough,c old GLENN CARRASCO T 03/29 Released w/o Limitations [facility]) [facility]) OUTPATIENT [id number] severe back pain GLENN CARRASCO T 05/21 Released w/o Limitations [facility]) [facility]) OUTPATIENT [id number] SCAR REVISIO N FROM C-SECTI ON YOZULLY VELAZQUEZ II 05/27 Released w/o Limitations [facility] ) [facility] DIRECT TO [facility] FROM OTHER THAN ER OR [facility] [id number] ZULLY RAM II 11/22 RETURNED TO DUTY [facility]) INPATIENT [id number] lipodys ulisseselijah LEXX TOVAR 11/23 Inpatient- Still a Patient [facility] Nut[facility]) [facility]) OUTPATIENT [id number] post op ZULLY RAM II 11/30 Released w/o Limitations [facility] ) [facility]) TELE CONSULT [id number] [place] Kristi 12/11 [facility]) [facility]) OUTPATIENT [id number] infecte SPENSER Oconnor 12/15 Released w/o Limitations [facility]) [facility]) OUTPATIENT [id number] ONE-MON TH F/U YOZULLY VELAZQUEZ II 01/17 Released w/o Limitations [facility] ) [facility]) OUTPATIENT [id number] DEVI LEARY 03/08 Released w/o Limitations [facility]) [facility]) OUTPATIENT [id number] well woman exam GLENN CARRASCO 03/09 Released w/o Limitations [facility]) [facility]) OUTPATIENT [id number] f/u abdoman al surgery , 5 month ZULLY RAM II 04/11 Released w/o Limitations [facility] ) [facility] Optometry ) OUTPATIENT [id number] ROUT EXAM/GL PATR[address]IA [address] 04/24 Released w/o Limitations [facility] Optomet ry) [facility]) OUTPATIENT [id number] colpo Stress inconti nence, cervica l neoplas m uncerta in behavio r need 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 DORA HAMILTON 04/26 Released w/o Limitations [facility]) [facility] Urology) OUTPATIENT [id number] FEMALE STRESS INCONTI NENCE JAMES ALAN 05/10 Released w/o Limitations [facility] ) [facility]) OUTPATIENT [id number] JAMES ALAN 05/10 Released w/o Limitations [facility] ) [facility]) OUTPATIENT [id number] JAMES ALAN 05/25 Released w/o Limitations [facility] ) [facility]) OUTPATIENT [id number] pre-op transob turator sling JAMES ALAN 05/29 Released w/o Limitations [facility] ) [facility] DIRECT TO [facility] FROM OTHER THAN ER OR [facility] [id number] JAMES ALAN 05/30 RETURNED TO DUTY [facility]) INPATIENT [id number] cystogr am JAMES ALAN 05/31 Inpatient- Discharged to Home/Self-ca re [facility] ) [facility]) OUTPATIENT [id number] post op follow up JAMES ALAN 06/12 Released w/o Limitations [facility] ) [address] [place] [address] [facility] Non-GME FHI1) OUTPATIENT [id number] Medical Right Start KARLA BACK 07/10 Released w/o Limitations [address] [place] [address] Group [facility] [facility])(F amily Practic e Non-GME FHI1) [address] [place] [address] [facility] [facility])(Sco tt [facility] FAM[facility] Tm Blue) OUTPATIENT [id number] Rec Rev and AHLTA 2766 SELVIN BRASHER 08/22 Released w/o Limitations [address] [place] [address] Group [place] [facility])(S cott [facility] Tm Blue) [address] [place] [address] [facility] [facility])([facility] Non-GME FHI1) OUTPATIENT [id number] Tobacco Cessati on Intake MARK SMITH 09/18 Released w/o Limitations [address] [place] [address] [place] [facility] ([facility])(F amily Practic e Non-GME FHI1) [address] [place] [address] [place] [facility] ([facility])(Sco tt [facility] Tm Blue) OUTPATIENT [id number] [phone] discuss previou s plastic surgery CHOSCOTT HERCULESJaz 10/02 Released w/o Limitations [address] [place] [address] Danilo SP[facility]KS[facility] ([facility])(S cott [facility] Tm Blue) [address] [place] [address] [place] [facility] ([facility])(Sco tt [facility] Tm Blue) OUTPATIENT [id number] tobacco follow- up SELVIN BRASHER 12/08 Released w/o Limitations [address] [place] [address] [place] [facility] ([facility])(S cott [facility] Tm Blue) [address] [place] [address] [place] [facility] ([facility])([facility]) OUTPATIENT [id number] [facility]/MOB EX MARIO ESTRELLA 01/09 Released w/o Limitations [address] [place] [address] [place] [facility] ([facility])(D [facility]) [address] [place] [address] [place] [facility] ([facility])(Sco tt [facility] Tm Blue) OUTPATIENT [id number] f/u abdomin al surgery SELVIN BRASHER 02/14 Released w/o Limitations [address] [place] [address] [place] [facility] ([facility])(S cott [facility] Tm Blue) [address] [place] [address] [place] [facility] ([facility])(Opt ometry) OUTPATIENT [id number] eye exam - [phone] MARC VICTOR 02/26 Released w/o Limitations [address] [place] [address] [place] [facility] ([facility])(O ptometr y) [address] [place] [address] [place] [facility])(Artie e Managemen t) TELE CONSULT [id number] LEO BARTHOLOMEW 03/[address] [place] [address] [place] [facility] ([facility])(C ase Managem ent) [address] [place] [address] [place] [facility] ([facility] DENTAL [phone] Exam Only JAMES PEREZ 03/20 Released w/o Limitations [address] [place] [address] [place] [facility] ([facility]D ental Clinic) [address] [place] [address] [place] [facility] ([facility] DENTAL [phone] Pros eval #4 JAMES PEREZ 03/22 Released w/o Limitations [employer] ([facility]D ental Clinic) [employer] ([facility])(Artie e Managemen t) TELE CONSULT [id number] LEO BARTHOLOMEW 03/26 [facility] [employer] ([facility])(C ase Managem ent) [facility] [employer] ([facility])([facility]) OUTPATIENT [id number] [facility] -PHA(8) MARK SMITH 04/03 Released w/o Limitations [employer] [place] [facility]KS[facility] ([facility])(D [facility]) [facility] [employer] ([facility]) DENTAL [phone] Pros Prep #4 JAMES PEREZ R 04/09 Released w/o Limitations [employer] [place] [facility] ([facility]D ental Clinic) [facility] [employer] ([facility]) DENTAL [phone] Perio SHALONDA Melchor 04/25 Released w/o Limitations [employer] [place] [facility] ([facility]D ental Clinic) [facility] [place] [facility]ARE[facility] ([facility]) DENTAL [phone] perio maint-s MAXWELL Morris 05/14 Released w/o Limitations [facility] [place] [facility] ([facility]D ental Clinic) [facility] [employer] ([facility]) DENTAL [phone] #4 PFM insert JAMES PEREZ 05/21 Released w/o Limitations [employer] ([facility]D ental Clinic) [employer] ([facility]) DENTAL [phone] perio maint scrMAXWELL Sandy 05/22 Released w/o Limitations [employer] ([facility]D ental Clinic) [facility] [employer] ([facility])(Opt ometry) OUTPATIENT [id number] CRS Part 2 MARC VICTOR 05/22 Released w/o Limitations [employer] ([facility])(O ptometr y) [employer](Prk Surgery) OUTPATIENT [id number] Pre-op RINA ALEXANDER 06/22 Released w/o Limitations [employer](P rk Surgery ) [employer](Prk Surgery) OUTPATIENT [id number] ot info brief BANG CHATMAN 06/26 Released w/o Limitations [employer](P rk Surgery ) [employer](Prk Surgery) OUTPATIENT [id number] consent brief BANG CHATMAN 06/26 Released w/o Limitations [employer](P rk Surgery ) [facility](Prk Surgery) OUTPATIENT [id number] final pre-op w/ surgeon BANG CHATMAN 06/26 Released w/o Limitations [employer](P rk Surgery ) [facility] Group(Prk Surgery) OUTPATIENT [id number] Surgery BANG CHATMAN 06/27 Sick at Home/Quarter s [facility](P rk Surgery ) [facility](Prk Surgery) OUTPATIENT [id number] Post-op 1 day BANG CHATMAN 06/28 Sick at Home/Quarter s [facility](P rk Surgery ) [facility](Prk Surgery) OUTPATIENT [id number] Post-op 6 day RINA ALEXANDER 07/03 Released w/o Limitations [facility](P rk Surgery ) [facility] Danilo DESAI ([facility])(Opt ometry) OUTPATIENT [id number] 1 mo prk f/u ALY ARIZA 07/27 Released w/o Limitations [facility] [employer] ([facility])(O ptometr y) [facility] Danilo DESAI ([facility])(Opt ometry) OUTPATIENT [id number] 2 month s/p PRK IOP check MARC VICTOR 09/04 Released w/o Limitations [facility] [place] [employer]AI ([facility])(O ptometr y) [facility] [place] DESAI ([facility])(Opt ometry) OUTPATIENT [id number] 3 mo prk f/u MARC VICTOR 10/09 Released w/o Limitations [facility] [place] DESAI ([facility])(O ptometr y) [facility] Danilo DESAI ([facility])(Sco tt [facility] FAMRES Tm Blue) OUTPATIENT [id number] painful left ankle hard to walk - [phone] FANNY FLORES 10/31 Released w/o Limitations [address] [place] [address] Danilo CLAREJudith ([facility])(S cott [facility] Tm Blue) [address] [place] [address] Danilo CLAREJudith ([facility])(Sco tt [facility] Tm Blue) OUTPATIENT [id number] severe headach es with menstru al cycle [phone] w [phone] c JIM ZAVALA 11/05 Released w/o Limitations [address] [place] [address] Danilo CLAREJudith ([facility])(S cott [facility] Tm Blue) [address] [place] [address] Danilo CLAREJudith ([facility])(Sco tt [facility] Tm Blue) OUTPATIENT [id number] irregul ar menstra l cycle [phone] RENE MONSALVE H. 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 [id number] METRORR GENTRY ROSA 01/18 Released w/o Limitations [address] [place] [address] Danilo DESAI ([facility])(G ynecolo gy) [address] [place] [address] Danilo DESAI [facility]) OUTPATIENT [id number] TCP initial - classro YOLI Duarte 01/24 Released w/o Limitations [address] [place] [address] Danilo DESAI ([facility])(I [facility]) [address] [place] [address] Danilo SPARKSB [facility])(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) TELE CONSULT [id number] Discuss u/s results . 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 [id number] ANNUAL SHEREEN NOVA S 02/04 Released w/o Limitations [employer] Danilo CLAREB ([facility])(G ynecolo gy) [facility] [employer] ([facility])(Acu puncture) OUTPATIENT [id number] JORDAN LANGE Burak 02/06 Released w/o Limitations [employer] Danilo CLAREB ([facility])(A cupunct ure) [facility] Danilo CLAREB ([facility])(C Pharm D Clinic) OUTPATIENT [id number] TCP followu p YOLI MARTINEZ 02/14 Released w/o Limitations Medical Group Danilo CLAREB ([facility])([facility]) [address] [place] [address] Danilo CLAREB ([facility])(Sco tt [facility] Tm Blue) OUTPATIENT [id number] Sleep disorde r [phone] STACY PAZ 02/28 Released w/o Limitations Medical Group Danilo CLAREB ([facility])(S cott [facility] Tm Blue) [facility] [employer] ([facility])(Opt ometry) OUTPATIENT [id number] 12 mo prk f/u MARC VICTOR 07/12 Released w/o Limitations [address] [place] [address] Group Danilo CLAREB ([facility])(O ptometr y) [address] [place] [address] [employer] ([facility])(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) TELE CONSULT [id number] e-mail about GENTRY Antonio 08/[address] [place] [address] Danilo CLAREB ([facility])(G ynecolo gy) [address] [place] [address] [employer] ([facility])(Sco tt [facility] Tm Blue) TELE CONSULT [id number] needs routine appt for multipl e issues - [phone] CAD [facility] ANGUS EUGENE 03/26 [facility] [employer] ([facility])(S cott [facility] Tm Blue) [address] [place] [address] [employer] ([facility])(Sco tt [facility] Tm Blue) OUTPATIENT [id number] pt. request ELVIN JOHNSON 04/11 Released w/o Limitations [employer] ([facility])(S cott [facility] Tm Blue) [address] [place] [address] Danilo DESAI ([facility])(Sco tt [facility] Tm Blue) TELE CONSULT [id number] Pt needs referra burak - Bert - [phone] - tsg CELESTINE MENDOZA 05/23 [facility] Danilo DESAI ([facility])(S cott [facility] Tm Blue) [facility] Danilo SPARKSB ([facility])([facility]) OUTPATIENT [id number] Smoking Cessati on ROSA, TJ S 09/08 Released w/o Limitations [facility] Medical Group Danilo DESAI ([facility])(I [facility]) [facility] Danilo SPARKSB ([facility])(Sco tt [facility] Fam Res Tm Green) OUTPATIENT [id number] Pain in breast [phone] ALEXA HERNANDEZ 09/16 Released w/o Limitations [facility] Medical Group Danilo SPARKSB ([facility])(S [facility] Fam Res Tm Green) [facility] Danilo SPARKSB ([facility])([facility]) OUTPATIENT [id number] Smoking Cessati on ROSA, TJ S 09/22 Released w/o Limitations [facility] Medical Group Danilo DESAI ([facility])(I [facility] Pharm [facility]) [facility] Group Danilo SPARKSB ([facility])([facility]) OUTPATIENT [id number] Smoking Cessati on ROSA, TJ S 10/02 Released w/o Limitations [facility] Medical Group Danilo DESAI ([facility])(I [facility]) [facility] Group Danilo SPARKSB ([facility])([facility]) OUTPATIENT [id number] SAMPSON NOE 10/16 Released w/o Limitations [facility] Medical Group Danilo SPARKSB ([facility])([facility]) [facility] Danilo SPARKSB ([facility])([facility]) OUTPATIENT [id number] Smoking Cessati on ROSA, TJ S 11/13 Released w/o Limitations [facility] Medical Group Danilo SPARKSB ([facility])([facility]) [facility] Group Danilo SPARKSB ([facility])(Sco tt [facility] Fam Res Tm Green) OUTPATIENT [id number] thyroid issues [phone] ALY FIGUEROA 11/24 Released w/o Limitations [facility] [employer] ([facility])(S [facility] Fam Res Tm Green) [address] [place] [address] Danilo SPARKSB ([facility])(Sco tt [facility]) TELE CONSULT [id number] Notes Entered by: QUIANA NOVA 16 Dec 2011 0945 ------- ------- ------- ------- -- Test results Ad cad tlt ALY FIGUEROA 12/[address] [place] [address] Danilo [facility]S [facility] Green) [address] [place] [address] Danilo [facility])(Aro tt [facility]) OUTPATIENT [id number] f/u for thyroid and cholest alexand[place] [phone] ALY FIGUEROA 12/25 Released w/o Limitations [address] [place] [address] Danilo [facility])(S [facility]) [address] [place] [address] Danilo [facility])(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 [id number] MENORRH AGIA JOSE HENNING 01/12 Released w/o Limitations [address] [place] [address] Danilo [facility])(G ynecodarcy gy) [address] [place] [address] Danilo [facility])(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 [id number] EMB [id number] JOSE HENNING 01/14 Released w/o Limitations [address] [place] [address] Danilo [facility])(G ynecolo gy) [address] [place] [address] Danilo [facility])(Aro tt [facility]) TELE CONSULT [id number] Notes Entered by: QUIANA NOVA 15 Jan 2012 0927 ------- ------- ------- ------- -- Referra horton APPSylvain Avila cad tlt ELVIN JOHNSON 01/[address] [place] [address] Danilo [facility])(S [facility] Green) [address] [place] [address])(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) TELE CONSULT [id number] Notes Entered by: SHADY HENNING 13 Feb 2012 1457 ------- ------- ------- ------- -- EMB results JOSE HENNING 02/[address] [place] [address] [employer] ([facility])(O b/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) [facility] Danilo DESAI ([facility])(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 [id number] pre op/ [phone] JOSE HENNING 03/23 Released w/o Limitations [employer] Danilo DESAI ([facility])(G ynecolo gy) [facility] Group Danilo SPARKSB ([facility])(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) TELE CONSULT [id number] Notes Entered by: HEAVEN TOBIN 12 Apr 2012 1446 ------- ------- ------- ------- -- Surgery darte HEAVEN TOBIN 04/[address] [place] [address] Group Danilo SPARKS ([facility])(G ynecolo gy) [facility]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) TELE CONSULT [id number] Notes Entered by: JOSHUA GARCIA 03 May 2012 1511 ------- ------- ------- ------- -- F/u appt needed HEAVEN TOBIN 05/[address] [place] [address] Group [facility]G ynecodarcy gy) [facility]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 [id number] f/u post hyst, lay&JOSE Diaz 05/20 Released w/o Limitations [facility] Danilo DESAI ([facility])(G yemacodarcy gy) [facility] tt Internal Medicine Tm) OUTPATIENT [id number] chronic headach es [id number] SHARMAINE MAYES 06/22 Released w/o Limitations [facility] Medical Group Danilo SPARKSB ([facility])(S cott Interna l Medicin e Tm) [facility] Danilo DESAI ([facility])([facility] tt Internal Medicine Tm) OUTPATIENT [id number] follow up migrain es [id number] SHARMAINE MAYES 07/30 Released w/o Limitations [facility] Medical Group Danilo SPARKSB ([facility])(S cott Interna l Medicin e Tm) [facility] Danilo SPARKSB [facility])(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) TELE CONSULT [id number] Notes Entered by: JOSHUA GARCIA 24 Aug 2012 1619 ------- ------- ------- ------- -- MARIO Lerma 08/[address] [place] [address])(Diandra blount gy) [address] [place] [address])([facility] Internal Medicine ) TELE CONSULT [id number] Notes Entered by: LUIS ANGEL MAHAN 30 Aug 2012 0810 ------- ------- ------- ------- -- Refill of medicat ion- WILLI Ireland 08/[address] [place] [address])(S cott Interna l Medicin e Tm) [address] [place] [address])([facility] Internal Medicine ) TELE CONSULT [id number] Notes Entered by: GUERRERO HERNANDEZ 06 Oct 2012 1441 ------- ------- ------- ------- -- Network results - Pulmona ry Sleep Medicin e 2 SHARMAINE MAYES 10/[address] [place] [address])(S cott Interna l Medicin e Tm) [address] [place] [address])(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) TELE CONSULT [id number] Notes Entered by: KVNG BYERS 28 Oct 2012 1301 ------- ------- ------- ------- -- Network Results - UROGYN 2 MUSA MURGUIA 10/[address] [place] [address])(O b/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) [address] [place] [address])([facility] Internal Medicine ) OUTPATIENT [id number] kidney stones [id number] SHARMAINE MAYES 11/01 Released w/o Limitations [address] [place] [address])(S cott Interna l Medicin e Tm) [address] [place] [address])(Sco tt Internal Medicine Tm) TELE CONSULT [id number] Notes Entered by: DEVI CORARL 06 Dec 2012 1008 ------- ------- ------- ------- -- Bhaskar Mayes - [phone] -[phone]/[phone] WILLI MARTINEZ 12/[address] [place] [address])(S cott Interna l Medicin e Tm) [address] [place] [address])(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 [id number] Vaginal Dischar ge MUSA MURGUIA 12/24 Released w/o Limitations [address] [place] [address])(G ynecolo gy) [address] [place], [place] [address]B [facility])(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) TELE CONSULT [id number] Notes Entered by: HEAVEN TOBIN 11 Jan 2013 1430 ------- ------- ------- ------- -- results MUSA MURGUIA 01/[address] [place] [address])(G ynecolo gy) [address] [place], [place] [address]B [facility])(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 [id number] f/u vaginal dischar ge - [phone] MUSA MURGUIA 01/12 Released w/o Limitations [address] [place] [address])(G ynecolo gy) [address] [place] [address])([facility] Internal Medicine ) TELE CONSULT [id number] Notes Entered by: KVNG BYERS 14 Jan 2013 1145 ------- ------- ------- ------- -- Network Results - UROLOGY 01/11/13 SHARMAINE MYAES 01/[address] [place] [address] ([facility])(S cott Interna l Medicin e Tm) [address] [place], [place] [address]B [facility])([facility] tt Internal Medicine Tm) TELE CONSULT [id number] Notes Entered by: Sylvain JONES 18 Jan 2013 1056 ------- ------- ------- ------- -- Bhaskar Mayes [phone] WILLI MARTINEZ 01/[address] [place] [address])(S cott Interna l Medicin e Tm) [address] [place] [address])([facility] Internal Medicine ) TELE CONSULT [id number] Notes Entered by: Ashkan MARTINEZ 19 Jan 2013 1601 ------- ------- ------- ------- -- Status of Ltr. WILLI MARTINEZ 01/[address] [place] [address])(S cott Interna l Medicin e Tm) [address] [place] [address])([facility] Internal Medicine ) TELE CONSULT [id number] Notes Entered by: KVNG BYERS 16 Feb 2013 1419 ------- ------- ------- ------- -- Network Results - UROLOGY 02/03/13 SHARMAINE MAYES 02/[address] [place] [address])(S cott Interna l Medicin e Tm) [address] [place] [address])([facility] Internal Medicine ) TELE CONSULT [id number] Notes Entered by: KVNG BYERS 17 Feb 2013 1644 ------- ------- ------- ------- -- Network Results - UROLOGY 02/17/13 SHARMAINE MAYES 02/[address] [place] [address])(S cott Interna l Medicin e Tm) [address] [place] [address])([facility] Internal Medicine ) OUTPATIENT [id number] [facility] SH[facility] MASS IN RIGHT BREAST [id number] SHARMAINE MAYES 02/25 Released w/o Limitations [address] [place] [address])(S cott Interna l Medicin e Tm) [address] [place] [address])([facility] Internal Medicine ) TELE CONSULT [id number] Notes Entered by: DEVI CORRAL 08 Jul 2013 1033 ------- ------- ------- ------- -- Bhaskar Mayes - [phone] PIERRE THORNTON I 07/[address] [place] [address])(S cott Interna l Medicin e Tm) [address] [place] [address])(Opt ometry) OUTPATIENT [id number] ROUTINE MAHOGANY RAMIRES 10/14 Released w/o Limitations [address] [place] [address])(O ptometr y) [address] [place] [address])([facility] Internal Medicine ) TELE CONSULT [id number] Notes Entered by: QUIANA NOVA 24 Jan 2014 0802 ------- ------- ------- ------- -- Med refill Bebo WILLI MARTINEZ 01/[address] [place] [address])(S cott Interna l Medicin e Tm) [address] [place] [address])([facility] Internal Medicine ) TELE CONSULT [id number] Notes Entered by: RADHA MAYES 02 Feb 2014 1648 ------- ------- ------- ------- -- Study results SHARMAINE MAYES 02/[address] [place] [address] Danilo [facility])(S cott Interna l Medicin e Tm) [address] [place] [address])([facility] Internal Medicine ) OUTPATIENT [id number] F/u headach SHARMAINE MAYES 02/06 Released w/o Limitations [address] [place] [address])(S cott Interna l Medicin e Tm) [address] [place] [address])([facility] Fam Res Tm Red) OUTPATIENT [id number] 2nd floor ASFB/Pr eop clinic Minor procedu res AMRIT RESENDEZ 03/07 Released w/o Limitations [address] [place] [address])(S cott [facility] Fam Res Tm Red) [address] [place] [address])([facility]) OUTPATIENT [id number] 2nd floor SAFB/TRAVON Lin 03/22 Released w/o Limitations [address] [place] [address])([facility] Blue) [address] [place] [address])([facility]) TELE CONSULT [id number] Notes Entered by: KENZIE RIVERA 23 Mar 2014 1335 ------- ------- ------- ------- -- Call back C-scope on [id number] - KENZIE Collazo 03/[address] [place] [address])([facility]) [address] [place] [address])([facility] Internal Medicine ) TELE CONSULT [id number] Notes Entered by: QUIANA NOVA 31 Mar 2014 0735 ------- ------- ------- ------- -- Med refill Mayes WILLI MARTINEZ 03/[address] [place] [address])(S cott Interna l Medicin e Tm) [address] [place] [address])([facility] Internal Medicine ) TELE CONSULT [id number] Notes Entered by: LUIS SWEENEY 28 Jun 2014 0708 ------- ------- ------- ------- -- SX - multipl e symptom s/Ortiz / or * JAMEL EARLY 06/[address] [place] [address])(S cott Interna l Medicin e Tm) [address] [place] [address])([facility] Internal Medicine ) TELE CONSULT [id number] Notes Entered by: MARILYNN SOARES 24 Jul 2014 1236 ------- ------- ------- ------- -- Sx/head and chest congest ion/hen ry/618. [phone] 0* JAMEL EARLY Kristi 07/[address] [place] [address])(S cott Interna l Medicin e Tm) [address] [place] [address])([facility] Internal Medicine ) TELE CONSULT [id number] Notes Entered by: PIETRO COOK 27 Sep 2014 1359 ------- ------- ------- ------- -- Sleep Study Disorde r Referra l renewal request ed by Pt REVA COOK 09/27 Referred for Appointment [address] [place] [address])(S cott Interna l Medicin e Tm) [address] [place] [address])([facility] Internal Medicine ) TELE CONSULT [id number] Notes Entered by: MASTER BURTON 12 Jan 2015 0916 ------- ------- ------- ------- -- Network results - Urgent Care 014 JOSE ANAYA V 01/[address] [place] [address])(S cott Interna l Medicin e Tm) [address] [place] [address])([facility] Internal Medicine ) TELE CONSULT [id number] Notes Entered by: SALVADOR CARTER 25 Apr 2015 0913 ------- ------- ------- ------- -- Med Claire /Cari /520.22 40 WILLI MARTINEZ 04/[address] [place] [address])(S cott Interna l Medicin e Tm) [address] [place] [address])([facility] Internal Medicine ) OUTPATIENT [id number] f/u HLP/lab s/medBRIAN Garnica 05/14 Released w/o Limitations [address] [place] [address])(S cott Interna l Medicin e Tm) [address] [place] [address])([facility] Internal Medicine ) TELE CONSULT [id number] Notes Entered by: KYA SQUIRES 12 Jun 2015 0910 ------- ------- ------- ------- -- Sx - headach e, diarrhe a, nose burning - Ortiz - [phone] 0v* JAMEL EARLY 06/[address] [place] [address] Group [facility])(S cott Interna l Medicin e Tm) [address] [place] [address])([facility] Internal Medicine ) OUTPATIENT [id number] Headach e, diarrhe a X 2 days BRIAN MARTINEZ 06/12 Released w/o Limitations [address] [place] [address])(S cott Interna l Medicin e Tm) [address] [place] [address])([facility] Internal Medicine ) TELE CONSULT [id number] Notes Entered by: Diandra RG 18 Jan 2016 0822 ------- ------- ------- ------- -- Micare msg/ med refill x 3 meds [phone] SCOTT SHAH 01/17 Medication Refill Forwarded [address] [place] [address])(S cott Interna l Medicin e Tm) [address] [place] [address])([facility] Internal Medicine ) TELE CONSULT [id number] Notes Entered by: Diandra RG 17 Mar 2016 0932 ------- ------- ------- ------- -- Micare msg/ x 2 referra l and civ fitness letter SCOTT SHAH 03/17 Referred for Appointment [address] [place] [address] Group [facility])(S cott Interna l Medicin e Tm) [address] [place] [address])([facility] Internal Medicine ) OUTPATIENT [id number] Physica l for fitness MIHAELA Urban 03/18 Released w/o Limitations [address] [place] [address])(S cott Interna l Medicin e Tm) [address] [place] [address])([facility]) TELE CONSULT [id number] Notes Entered by: ANDREW QUISPE 02 Jun 2016 1403 ------- ------- ------- ------- -- LYNSEY OQUENDO [phone] GONZALEZJAMEL WALLACE Kristi 06/[address] [place] [address])(S cott Interna l Medicin e Tm) [address] [place] [address])([facility] Tm A Ad) OUTPATIENT [id number] Sinus Cold KUNAL VAIL 10/22 Released w/o Limitations [address] [place] [address])(W arrior Op Med Cln Tm A Ad) [address] [place] [address])(Fam kristen Med Tm B Non-AD BCC) TELE CONSULT [id number] Notes Entered by: HOLLAND VARELA 18 Nov 2016 1552 ------- ------- ------- ------- -- Medicat ion Refill/ ALTON Linares 11/18 Referred for Appointment [address] [place] [address])(F amily Med Tm B Non-AD BCC) [address] [place] [address])(War rior Op Med Cln Tm A Ad) OUTPATIENT [id number] medicat ion f/u KUNAL VAIL 12/11 Released w/o Limitations [address] [place] [address])(W arrior Op Med Cln Tm A Ad) [address] [place] [address])(War rior Op Med Cln Tm A Ad) TELE CONSULT [id number] Notes Entered by: ARETHA AGUILERA 12 Dec 2016 0937 ------- ------- ------- ------- -- colonos copy HAYLEY, PAULO Edward 12/[address] [place] [address])(W arrior Op Med Cln Tm A Ad) [address] [place] [address])(War rior Op Med Cln Tm A Ad) TELE CONSULT [id number] Notes Entered by: ARETHA AGUILERA 12 Dec 2016 1600 ------- ------- ------- ------- -- Colonos copy due 2023 PAULO HARDY 12/[address] [place] [address])(W arrior Op Med Cln Tm A Ad) [address] [place] [address])([facility] kristen Med Tm B Non-AD BCC) OUTPATIENT [id number] x/b - Muscle Pain, Fatigue , [phone] MAISHA PATRICK 03/25 Released w/o Limitations [address] [place] [address])(F amily Med Tm B Non-AD BCC) [address] [place] [address])([facility] kristen Med Tm B Non-AD BCC) TELE CONSULT [id number] Notes Entered by: HOLLAND VARELA 02 Apr 2017 1501 ------- ------- ------- ------- -- Refer l Request /Skinny waterman PAULO HARDY 04/[address] [place] [address])(F amily Med Tm B Non-AD BCC) [address] [place] [address])([facility] kristen Med Tm B Non-AD BCC) TELE CONSULT [id number] Notes Entered by: EVGENY MARTINEZ 21 Sep 2017 0847 ------- ------- ------- ------- -- Sx persist -kidney stone-m ultiple issues/ Roberto milton/[phone]/ plc HAYLEYPAULO Starks 09/[address] [place] [address])(F amily Med Tm B Non-AD BCC) [address] [place] [address])(War rior Op Med Cln Tm A Ad) TELE CONSULT [id number] Notes Entered by: DEVI CORRAL 23 Sep 2017 1055 ------- ------- ------- ------- -- Hospita l F/U - referra stefany - Roberto ki - - tsg PAULO HARDY 09/[address] [place] [address] Danilo [facility])(W arrior Op Med Cln Tm A Ad) [address] [place] [address] Danilo [facility])(War rior Op Med Cln Tm A Ad) TELE CONSULT [id number] Notes Entered by: Cheyanne PENN 24 Sep [id number] ------- ------- ------- ------- -- Referra l PAULO HARDY Cheyanne 09/[address] [place] [address])(W arrior Op Med Cln Tm A Ad) [address] [place] [address])([facility]) TELE CONSULT [id number] Notes Entered by: CHUY BURGOS 24 Sep 2017 1117 ------- ------- ------- ------- -- Hospita l admissi on notific ation CHUY BURGOS 09/[address] [place] [address] Danilo [facility])(C are Coordin ation Clinic) [address] [place] [address])([facility]) TELE CONSULT [id number] Notes Entered by: CHUY BURGOS 25 Sep 2017 0925 ------- ------- ------- ------- -- Hospita l dischar ge notific ation CHUY BURGOS 09/[address] [place] [address])([facility]) [address] [place] [address])(Fam kristen Med Tm B Non-AD BCC) TELE CONSULT [id number] Notes Entered by: MARISOL MONTEMAYOR 25 Sep 201740 ------- ------- ------- ------- -- Network Results Emergen cy Room 7 KUNAL VAIL 09/[address] [place] [address])(F amily Med Tm B Non-AD BCC) [address] [place] [address])(Fam kristen Med Tm B Non-AD BCC) TELE CONSULT [id number] Notes Entered by: SILAS RODRIGUEZ 05 Oct 2017 1029 ------- ------- ------- ------- -- Network Results Emergen cy Room 7 MMM KUNAL VAIL 10/[address] [place] [address] Danilo [facility])(F amily Med Tm B Non-AD BCC) [address] [place] [address])(Fam kristen Med Tm B Non-AD BCC) TELE CONSULT [id number] Notes Entered by: SILAS RODRIGUEZ 06 Oct 2017 0906 ------- ------- ------- ------- -- Network Results Emergen cy Room 7 MM KUNAL VAIL 10/[address] [place] [address] Danilo [facility])(F amily Med Tm B Non-AD BCC) [address] [place] [address])(War rior Op Med Cln Tm A Ad) TELE CONSULT [id number] Notes Entered by: TARAN ANGULO 27 Oct 2017 0853 ------- ------- ------- ------- -- Network Results Radiolo gy 7 KUNAL OSULLIVAN 10/[address] [place] [address] Danilo [facility])(W arrior Op Med Cln Tm A Ad) [address] [place] [address])(War rior Op Med Cln Tm A Ad) TELE CONSULT [id number] Notes Entered by: SANDOR HAMILTON 02 Nov 2017 0747 ------- ------- ------- ------- -- Network Results -UROLOG Y 7 KUNAL CARMONA 11/[address] [place] [address] Danilo [facility])(W arrior Op Med Cln Tm A Ad) [address] [place] [address])(War rior Op Med Cln Tm A Ad) TELE CONSULT [id number] Notes Entered by: MADHU SHELBY 03 Nov 2017 0851 ------- ------- ------- ------- -- Network Results Radiolo gy 7 TDC (abd 1 view) KUNAL VAIL 11/[address] [place] [address])(W arrior Op Med Cln Tm A Ad) [address] [place] [address])(War rior Op Med Cln Tm A Ad) TELE CONSULT [id number] Notes Entered by: MADHU SHELBY 19 Nov 2017 1340 ------- ------- ------- ------- -- Network Results Radiolo gy 8 TDC (retrog rade pyelogr am) KUNAL VAIL 11/[address] [place] [address])(W arrior Op Med Cln Tm A Ad) [address] [place] [address])(War rior Op Med Cln Tm A Ad) TELE CONSULT [id number] Notes Entered by: DEVI CORRAL 18 Dec 2017 0947 ------- ------- ------- ------- -- Extend or renew bhaskar Mejia ki - [phone] - tsg HAYLEY, PAULO J 12/[address] [place] [address])(W arrior Op Med Cln Tm A Ad) [address] [place] [address])(War rior Op Med Cln Tm A Ad) TELE CONSULT [id number] Notes Entered by: LIONEL HAWKINS 11 Feb 2018 0731 ------- ------- ------- ------- -- Micare/ med refill HAYLEY, PAULO J 02/[address] [place] [address])(W arrior Op Med Cln Tm A Ad) [facility])(War rior Op Med Cln Tm A Ad) OUTPATIENT [id number] Jose Armando [facility] med cliare s, [phone] KUNAL VAIL 02/23 Released w/o Limitations [facility])(W arrior Op Med Cln Tm A Ad) [facility])(War rior Op Med Cln Tm A Ad) OUTPATIENT [id number] Notes Entered by: TJ MELGOZA 30 Mar 2018 1353 ------- ------- ------- ------- -- WALK-IN UTI KUNAL VAIL 03/30 Released w/o Limitations [facility])(W arrior Op Med Cln Tm A Ad) [facility])(War rior Op Med Cln Tm A Ad) TELE CONSULT [id number] Notes Entered by: NIC PHILLIP 16 Jun 2018 0931 ------- ------- ------- ------- -- Bhaskar Merlos - Appt Jun / Roberto milton / - sgj SANDI ALDRIDGE 06/16 Referred for Appointment [facility])(W arrior Op Med Cln Tm A Ad) [facility])(War rior Op Med Cln Tm A Ad) TELE CONSULT [id number] Notes Entered by: HAZEL STODDARD 17 Feb 2019 1119 ------- ------- ------- ------- -- MARGARITO Palomo [facility] Team 1: Office Message SANDI ALDRIDGE 02/17 Referred for Appointment [facility])(W arrior Op Med Cln Tm A Ad) [facility])(War rior Op Med Cln Tm A Ad) OUTPATIENT [id number] discuss surgica l procedu re for sinuses [id number] FEBRUARYDERRICK R 06/07 Released w/o Limitations [facility])(W arrior Op Med Cln Tm A Ad) [facility])(War rior Op Med Cln Tm A Ad) TELE CONSULT [id number] Notes Entered by: DEBRA ANDREWS 24 Aug 2019 1214 ------- ------- ------- ------- -- Referra burak Issue and Request /Freili no/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 [id number] [facility] RAS DAVALOS 09/28 Released w/o Limitations [address] [place] [address])(Diandra mcgowan) [address] [place] [address])(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) TELE CONSULT [id number] Notes Entered by: DEVANG DAVALOS 04 Oct 2019 1842 ------- ------- ------- ------- -- results JT HANNAH 10/05 Released to Self Care [address] [place] [address])(Diandra blount gy) [address] [place] [address])(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) TELE CONSULT [id number] Notes Entered by: DEVANG DAVALOS 17 Oct 2019 1043 ------- ------- ------- ------- -- results CARLITOSJT Yu Sylvain 10/17 Referred for Appointment [address] [place] [address])(G ynecolo gy) [address] [place] [address])(War rior Op Med Cln Tm A Ad) OUTPATIENT [id number] Advised to schedul e appt from results of a bone scan [id number] BERTHA VERA 11/11 Released w/o Limitations [address] [place] [address])(W arrior Op Med Cln Tm A Ad) [address] [place] [address])(War rior Op Med Cln Tm A Ad) TELE CONSULT [id number] Notes Entered by: [facility] DAMON 01 May 2020 1326 ------- ------- ------- ------- -- Network results Dermato logy 020 CHEYENNE BURKS 05/[address] [place] [address])(W arrior Op Med Cln Tm A Ad) [address] [place] [address])(War rior Op Med Cln Tm A Ad) TELE CONSULT [id number] Notes Entered by: HAZEL STODDARD 16 May 2020 1431 ------- ------- ------- ------- -- MARGARITO HAZEL Osman 05/16 Released to Self Care [address] [place] [address])(W arrior Op Med Cln Tm A Ad) [address] [place] [address])(War rior Op Med Cln Tm A Ad) TELE CONSULT [id number] Notes Entered by: MAMADOU GRIMM 11 Jun 2020 0900 ------- ------- ------- ------- -- Secure Message - SAMPSON Lim 06/11 Other Not Elsewhere Classified [address] [place] [address])(W arrior Op Med Cln Tm A Ad) [address] [place] [address])(Fam kristen Med Tm B Non-AD BCC) TELE CONSULT [id number] Notes Entered by: Kristi RIVERS 25 Jun 2020 1437 ------- ------- ------- ------- -- Network results Gastroe nterolo gy 020 ALD HERBIE DERRICK R 06/[address] [place] [address])(F amily Med Tm B Non-AD BCC) [address] [place] [address])(Fam kristen Med Tm B Non-AD BCC) TELE CONSULT [id number] Notes Entered by: Kristi RIVERS 23 Jul 2020 1316 ------- ------- ------- ------- -- Network results Pulmona ry/Sonal p Medicin e 020 SHARMAINE BROOKS 07/[address] [place] [address])(F amily Med Tm B Non-AD BCC) [address] [place] [address])(War rior Op Med Cln Tm A Ad) TELE CONSULT [id number] Notes Entered by: HAZEL STODDARD 30 Jul 2020 1340 ------- ------- ------- ------- -- MARGARITO Secure Messagi [facility] Team 1: Rx Renewal BRITTNEY BLEVINS 07/30 Other Not Elsewhere Classified [address] [place] [address])(W arrior Op Med Cln Tm A Ad) [address] [place] [address])(War rior Op Med Cln Tm A Ad) TELE CONSULT [id number] Notes Entered by: HAZEL STODDARD 02 Aug 2020 1543 ------- ------- ------- ------- -- MARGARITO Secure Messagi [facility] Team 1: Office Message BRITTNEY BLEVINS 08/02 Released to Self Care [address] [place] [address])(W arrior Op Med Cln Tm A Ad) [address] [place] [address])(War rior Op Med Cln Tm A Ad) TELE CONSULT [id number] Notes Entered by: CHRISTIAN PEÑA 08 Aug 2020 1357 ------- ------- ------- ------- -- Lab Results SHARMAINE SARMIENTO 08/[address] [place] [address])(W arrior Op Med Cln Tm A Ad) [address] [place] [address])(Fam kristen Med Tm B Non-AD BCC) TELE CONSULT [id number] Notes Entered by: KINGSTON TUBBS 23 Aug 2020 0802 ------- ------- ------- ------- -- Resched tiffanie Appt Request / Nas milton/ - OUMAR Us 08/23 Other Not Elsewhere Classified [address] [place] [address])(F amily Med Tm B Non-AD BCC) [address] [place] [address])(Fam kristen Med Tm B Non-AD BCC) OUTPATIENT [id number] [facility] Virtual SHARMAINE SARMIENTO 08/31 Released w/o Limitations [address] [place] [address])(F amily Med Tm B Non-AD BCC) [address] [place] [address])(Fam kristen Med Tm B Non-AD BCC) TELE CONSULT [id number] Notes Entered by: Ashkan LAZAR 26 Sep 2020 1006 ------- ------- ------- ------- -- Network results Gastroe edwin gy 020 SHARMAINE SALAS 09/[address] [place] [address])(F amily Med Tm B Non-AD BCC) [address] [place] [address])(War rior Op Med Cln Tm A Ad) TELE CONSULT [id number] Notes Entered by: HAZEL STODDARD 08 Oct 2020 0920 ------- ------- ------- ------- -- [facility]: HAZEL Villasenor 10/08 Released to Self Care [address] [place] [address])(W arrior Op Med Cln Tm A Ad) [address] [place] [address])(Fam kristen Med Tm B Non-AD BCC) TELE CONSULT [id number] Notes Entered by: Sylvain NOE 02 Nov 2020 1256 ------- ------- ------- ------- -- Network results Surgery 1 TSKAY VILLANUEVA 11/[address] [place] [address])(F amily Med Tm B Non-AD BCC) [address] [place] [address])(War rior Op Med Cln Tm A Ad) TELE CONSULT [id number] Notes Entered by: Kristi RIVERS 27 Nov 2020 0839 ------- ------- ------- ------- -- Network results Surgery 021 ALD KAY ZHENG 11/[address] [place] [address])(W arrior Op Med Cln Tm A Ad) [address] [place] [address])(War rior Op Med Cln Tm A Ad) TELE CONSULT [id number] Notes Entered by: RONDA AVALOS 28 Nov 2020 1140 ------- ------- ------- ------- -- Network Results LABORAT OR 1 KAY ZHENG 11/[address] [place] [address])(W arrior Op Med Cln Tm A Ad) [address] [place] [address])(Fam kristen Med Tm B Non-AD BCC) TELE CONSULT [id number] Notes Entered by: MARITO HEBERT Feb 2021 1218 ------- ------- ------- ------- -- Network Results Summary of Care 11/26/20 KAY ZHENG 11/[address] [place] [address])(F amily Med Tm B Non-AD BCC) [address] [place] [address])(Fam rkisten Med Tm B Non-AD BCC) TELE CONSULT [id number] 3 Notes Entered by: Kristi RIVERS 14 Dec 2020 1016 ------- ------- ------- ------- -- Network results Surgery 021 KAY BERMUDEZ 12/[address] [place] [address])(F amily Med Tm B Non-AD BCC) [address] [place] [address])(Fam rkisten Med Tm B Non-AD BCC) TELE CONSULT [id number] 0 Notes Entered by: Kristi RIVERS 27 Dec 2020 0906 ------- ------- ------- ------- -- Network results Surgery 021 GLENN MARINO 12/[address] [place] [address])(F amily Med Tm B Non-AD BCC) [address] [place] [address])(Fam kristen Med Tm B Non-AD BCC) TELE CONSULT [id number] 5 Notes Entered by: Kristi RIVERS 30 Jan 2021 1159 ------- ------- ------- ------- -- Network results Surgery 021 KAY BERMUDEZ 01/[address] [place] [address])(F amily Med Tm B Non-AD BCC) [address] [place] [address])(Fam kristen Med Tm B Non-AD BCC) TELE CONSULT [id number] Notes Entered by: MAMADOU GRIMM 20 Mar 2021 1402 ------- ------- ------- ------- -- MARGARITO Secure Message - Bhaskar Rosario ([facility] SAMPSON ARTHUR 03/20 Other Not Elsewhere Classified [address] [place], [place] [address]B [facility])(F amily Med Tm B Non-AD BCC) [address] [place], [place] [address]B [facility])(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 [id number] [facility] RONN ALATORRE 03/28 Released w/o Limitations [address] [place] [address] [employer] [facility])(G ynecolo gy) [address] [place] [address] Danilo B [facility])(Fam kristen Med Tm B Non-AD BCC) OUTPATIENT [id number] I am having acid reflux issues and would like to get seen for it MESFIN LONG 03/28 Released w/o Limitations [address] [place], [place] [address]B [facility])(F amily Med Tm B Non-AD BCC) [address] [place], [place] [address]B [facility])(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) TELE 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 [id number] Notes Entered by: STEPHEN ALATORRE 03 Apr 2021 1133 ------- ------- ------- ------- -- MIKAEL Cedillo 04/03 Other Not Elsewhere Classified [address] [place], [place] [address]B [facility])(G ynecolo gy) [address] [place] [address])(Fam kristen Med Tm B Non-AD BCC) TELE CONSULT [id number] Notes Entered by: Kristi RIVERS 02 May 2021 0942 ------- ------- ------- ------- -- Network results Dermato logy 021 MESFIN WALLACE 05/[address] [place] [address] [employer] [facility])(F amily Med Tm B Non-AD BCC) [address] [place] [address] [employer] ([facility])(Fam kristen Med Tm B Non-AD BCC) TELE CONSULT [id number] 5 Notes Entered by: DENISE SCHULZ 09 May 2021 0819 ------- ------- ------- ------- -- Network results Physica l Therapy 021 KAY VOSS 05/[address] [place] [address] Danilo [facility])(F amily Med Tm B Non-AD BCC) [address] [place] [address])(Fam kristen Med Tm B Non-AD BCC) TELE CONSULT [id number] Notes Entered by: HAZEL STODDARD 17 May 2021 0642 ------- ------- ------- ------- -- MARGARITO Secure Messsarai ng Referra l Request HAZEL STODDARD 05/17 Released to Self Care [address] [place] [address] Danilo [facility])(F amily Med Tm B Non-AD BCC) [address] [place] [address] Danilo [facility])(Fam kristen Med Tm B Non-AD BCC) TELE CONSULT [id number] 7 Notes Entered by: HAZEL STODDARD 27 Jun 2021 0907 ------- ------- ------- ------- -- MARGARITO Secure Stacia hercules Prescri ption - Renewal Request HAZEL STODDARD 06/27 Released to Self Care [address] [place] [address] Danilo [facility])(F amily Med Tm B Non-AD BCC) [address] [place] [address] Danilo [facility])(Fam kristen Med Tm B Non-AD BCC) OUTPATIENT [id number] FACE TO FACE: Medicat ion refills MESFIN LONG 07/12 Released w/o Limitations [address] [place] [address] Danilo [facility])(F amily Med Tm B Non-AD BCC) [address] [place] [address] Danilo [facility])(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) TELE 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 [id number] Notes Entered by: Sylvain NOE 15 Jul 2021 1125 ------- ------- ------- ------- -- Network results PT 07/15/21 LUCILLE BA 07/15 Other Not Elsewhere Classified [address] [place] [address] Danilo [facility])(O b/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 Laws/ [phone] JUAN WASHINGTON 03/10 Released to Self Care [address] [place] [address])(S cott [facility] FAMRES Tm Blue) [address] [place] [address])(Sco tt [facility] FAMRES Tm Blue) TELE CONSULT [id number] Notes Entered by: JOSEF SANDY 08 May 2022 0749 ------- ------- ------- ------- -- COLT Longoria 05/08 Released to Self Care [address] [place] [address])(S cott [facility] FAMRES Tm Blue) [address] [place] [address] Danilo [facility])(Sco tt [facility] FAMRES Tm Blue) OUTPATIENT [id number] F2F - Abdomin al pain, medicat ions, [phone] HERBIE COLVIN 05/08 Released w/o Limitations [address] [place] [address] Danilo [employer] [facility])(S cott [facility] FAMRES Tm Blue) [address] [place] [address] Danilo [facility])(Sco tt [facility] Fam Res Tm Green) TELE CONSULT [id number] Notes Entered by: Sylvain COLVIN 26 May 2022 0815 ------- ------- ------- ------- -- Lab results HERBIE COLVIN 05/26 Referred for Appointment [address] [place] [address])(S cott [facility] Fam Res Tm Green) [address] [place] [address])(Sco tt [facility] FAMRES Tm Blue) TELE CONSULT [id number] Notes Entered by: JENNIFER CORREA 12 Sep 2022 0908 ------- ------- ------- ------- -- Network Results - ED CC: Cate 09/03/20 CANDY ESCALONA 09/12 Released to Self Care [address] [place] [address])(S [facility] FAMRES Tm Blue) [address] [place] [address])(Sco tt [facility] FAMRES Tm Blue) TELE CONSULT [id number] Notes Entered by: ROHIT GARBER 16 Sep 2022 1501 ------- ------- ------- ------- -- Network Results - Dischar ge From ED 09/03/22 CANDY ESCALONA 09/16 Released to Self Care [address] [place] [address])(S cott [facility] FAMRES Tm Blue) [address] [place] [address])(Sco tt [facility] FAMRES Tm Blue) TELE CONSULT [id number] Notes Entered by: SOBEIDA WILDER 16 Mar 2023 1400 ------- ------- ------- ------- -- Rx Renewal /Zeke /EDI Solares 03/16 Referred for Appointment [address] [place] [address])(S cott [facility] FAMRES Tm Blue) [address] [place] [address])(Sco tt [facility] FAMRES Tm Blue) OUTPATIENT [id number] f2f annual, rx f/u HERBIE COLVIN 03/18 Released w/o Limitations [employer] Danilo DESAI [place] abbi [facility] FAMRES Tm Blue) [facility] Outpatient Encounter [id number] 04/30 [facility] N 6130C-Af- C-375Th Medgrp-Sc mykel Between Visit [id number] 04/04 Discharge Disposition: Home or Self Care 6130C-A f-C-375 Th [facility]- Danilo 6130C-Af- C-375Th Medgrp-Sc mykel Between Visit [id number] 04/05 Discharge Disposition: Home or Self Care 6130C-A f-C-375 Th [facility] Danilo 6130C-Af- C-375Th Medgrp-Sc mykel Between Visit [id number] 04/05 Discharge Disposition: Home or Self Care 6130C-A f-C-375 Th Med[facility]- Danilo 0055A-375 th MEDGRP-Sc mykel Outpatient [id number] TAMI HUFFMAN 04/10 Discharge Disposition: Home or Self Care 0055A-3 [facility] 0055A-375 th MED[facility]Sc mykel Outpatient [id number] TAMI HUFFMAN 04/21 Discharge Disposition: Home or Self Care 0055A-3 [facility] Procedures Combined list of: 1) Procedures from Department of Veterans Affairs facilities going back up to thelast 18 months, not all VA non-surgical procedures are included; 2) All procedures from the Department of Defense facilities. Procedure Procedure Type Code Date Perfolivia Kirkpatrick Sourrk e kidney stone lithotripsy 019 0055C-37 [facility]th [facility] abbi kidney stone lithotripsy 017 0055C-37 [facility]th [facility] Urinary sling replacement 013 0055C-37 [facility]th [facility] PRK 009 0055C-37 5th [facility] urninary sling 008 6130C-Af -C-375Th Medgrp-S abbi kidney stones lithotripsy 004 6130C-Af -C375 [facility] ankle fracture plate implant 2x [address] [place], [place] [id number] Tonsillectomy, primary or secondary; age 12 or over Tonsillectomy, primary or secondary; age 12 or over [id number] [place], [place] [address] ectopic [address] [place], [place] [address] wisdom teeth removed [address] [place], [place] [address] Colorectal cancer screening; colonoscopy on individual not meeting criteria for high risk 0055C-37 [facility] CYSTOURETHROSCOPY, WITH REMOVAL OF FOREIGN BODY, CALCULUS, OR URETERAL STENT FROM URETHRA OR BLADDER (SEPARATE PROCEDURE); SIMPLE 004 [facility] RINGERS LACTATE INFUSION, UP TO 1000 CC [facility] EDUCATIONAL SUPPLIES, SUCH BOOKS, TAPES, AND PAMPHLETS, FOR THE PATIENT'S EDUCATION AT COST TO PHYSICIAN OR OTHER QUALIFIED HEALTH WATER/WASTEWATER ENGINEER 004 [facility] POSTOPERATIVE FOLLOW-UP VISIT, NORMALLY INCLUDED IN THE SURGICAL PACKAGE, INDICATE THAT EVALUATION & MANAGEMENT SERVICE WAS PERFORMED DURING A POSTOPERATIVE PERIOD REASON RELATED ORIGINAL PROCEDURE 009 [facility] POSTOPERATIVE FOLLOW-UP VISIT, NORMALLY INCLUDED IN THE SURGICAL PACKAGE, INDICATE THAT EVALUATION & MANAGEMENT SERVICE WAS PERFORMED DURING A POSTOPERATIVE PERIOD REASON RELATED ORIGINAL PROCEDURE 009 [facility] PHOTOREFRACTIVE KERATECTOMY (PRK) 009 [facility] PHYS/OTH QUALIFIED HEALTH WATER/WASTEWATER ENGINEER QUALIFIED,EDUCATION, TRAIN,LICENSURE/REGU LATION (WHEN APPLICABLE) EDUC SER RENDERED TO PATS IN A GRP SETTING (EG,,OBESITY ,OR DIABETIC INSTRUCT) 009 [facility] DETERMINATION OF REFRACTIVE STATE 009 [facility] INDIVIDUAL PSYCHOTHER, INTERACT, PLAY EQUIP, PHYS DEVICES, TRIAGE REGISTERED NURSE/OTH [facility] OF NON-VERBAL COMM,IN AN INPAT HOSP, PART HOSP/RESIDENT CARE, APPROX 20-30 MIN [id number]-BV-[id number] W PAT; W MED E&M SER 001 [facility] UNLISTED PROCEDURE, BREAST 001 [facility] OPHTHALMOLOGICAL SERVICES: MEDICAL EXAMINATION AND EVALUATION, WITH INITIATION OR CONTINUATION OF DIAGNOSTIC AND TREATMENT PROGRAM; INTERMEDIATE, ESTABLISHED PATIENT 001 DoD OTHER REPAIR OF URINARY STRESS INCONTINENCE 008 [facility] POSTOPERATIVE FOLLOW-UP VISIT, NORMALLY INCLUDED IN THE SURGICAL PACKAGE, INDICATE THAT EVALUATION & MANAGEMENT SERVICE WAS PERFORMED DURING A POSTOPERATIVE PERIOD REASON RELATED ORIGINAL PROCEDURE 008 [facility] SLING OPERATION FOR STRESS INCONTINENCE (EG, FASCIA OR SYNTHETIC) 008 [facility] CYSTOURETHROSCOPY (SEPARATE PROCEDURE) 008 [facility] FITTING OF SPECTACLES, EXCEPT FOR APHAKIA; MONOFOCAL 008 [facility] WHOLE BODY INTEGUMENTARY PHOTOGRAPHY, FOR MONITORING OF HIGH RISK PATIENTS WITH DYSPLASTIC NEVUS SYNDROME OR A HISTORY OF DYSPLASTIC NEVI, OR PATIENTS WITH A PERSONAL OR FAMILIAL HISTORY OF MELANOMA 008 [facility] WHOLE BODY INTEGUMENTARY PHOTOGRAPHY, FOR MONITORING OF HIGH RISK PATIENTS WITH DYSPLASTIC NEVUS SYNDROME OR A HISTORY OF DYSPLASTIC NEVI, OR PATIENTS WITH A PERSONAL OR FAMILIAL HISTORY OF MELANOMA 008 [facility] SIZE REDUCTION PLASTIC OPERATION 008 [facility] REPAIR OF OTHER HERNIA OF ANTERIOR ABDOMINAL WALL WITH GRAFT OR PROSTHESIS 008 [facility] REPAIR OF UMBILICAL HERNIA WITH GRAFT OR PROSTHESIS 008 [facility] WHOLE BODY INTEGUMENTARY PHOTOGRAPHY, FOR MONITORING OF HIGH RISK PATIENTS WITH DYSPLASTIC NEVUS SYNDROME OR A HISTORY OF DYSPLASTIC NEVI, OR PATIENTS WITH A PERSONAL OR FAMILIAL HISTORY OF MELANOMA 007 DoD THERAPEUTIC, PROPHYLACTIC OR DIAGNOSTIC INJECTION (SPECIFY SUBSTANCE OR DRUG); SUBCUTANEOUS OR INTRAMUSCULAR 007 DoD SCREENING PAPANICOLAOU SMEAR; OBTAINING, PREPARING AND CONVEYANCE OF CERVICAL OR VAGINAL SMEAR TO LABORATORY 007 DoD FITTING OF SPECTACLES, EXCEPT FOR APHAKIA; MONOFOCAL 006 DoD INJECTION, KETOROLAC TROMETHAMINE, PER 15 MG 006 DoD OTHER ARTIFICIAL RUPTURE OF MEMBRANES 995 [facility] MEDICAL INDUCTION OF LABOR 995 [facility] EKG (SCALP) 995 [facility] REPAIR OF OTHER CURRENT OBSTETRIC LACERATION 995 [facility] MANUAL REMOVAL OF RETAINED PLACENTA 995 [facility] REPAIR OF CURRENT OBSTETRIC LACERATION OF CERVIX 995 [facility] OTHER DIAGNOSTIC PROCEDURES ON FETUS AND AMNION 995 [facility] TELE ASSESS & MGT SRV PROV QUAL NONPHYS HLTH CARE PRO TO EST PAT,PARENT,GUARD NOT ORIG REL ASSESS & MGT SRV PROV W/IN PREV 7 DAYS NOR LEAD ASSESS & MGT SRV/PX W/IN NXT 24 HR/SOON APT;5-10 MIN MED DIS DoD TELE ASSESS & MGT SRV PROV QUAL NONPHYS HLTH CARE PRO TO EST PAT,PARENT,GUARD NOT ORIG REL ASSESS & MGT SRV PROV W/IN PREV 7 DAYS NOR LEAD ASSESS & MGT SRV/PX W/IN NXT 24 HR/SOON APT;5-10 MIN MED DIS DoD TELE ASSESS & MGT SRV PROV QUAL NONPHYS HLTH CARE PRO TO EST PAT,PARENT,GUARD NOT ORIG REL ASSESS & MGT SRV PROV W/IN PREV 7 DAYS NOR LEAD ASSESS & MGT SRV/PX W/IN NXT 24 HR/SOON APT;5-10 MIN MED DIS DoD TELE ASSESS & MGT SRV PROV QUAL NONPHYS HLTH CARE PRO TO EST PAT,PARENT,GUARD NOT ORIG REL ASSESS & MGT SRV PROV W/IN PREV 7 DAYS NOR LEAD ASSESS & MGT SRV/PX W/IN NXT 24 HR/SOON APT;5-10 MIN MED DIS DoD TELE ASSESS & MGT SRV PROV QUAL NONPHYS HLTH CARE PRO TO EST PAT,PARENT,GUARD NOT ORIG REL ASSESS & MGT SRV PROV W/IN PREV 7 DAYS NOR LEAD ASSESS & MGT SRV/PX W/IN NXT 24 HR/SOON APT;5-10 MIN MED DIS DoD WAIVER SERVICES; NOT OTHERWISE SPECIFIED (NOS) DoD QUALIFIED NONPHYSICIAN HEALTH WATER/WASTEWATER ENGINEER ONLINE DIGITAL ASSESSMENT AND MANAGEMENT, FOR AN ESTABLISHED PATIENT, FOR UP TO 7 DAYS, CUMULATIVE TIME DURING THE 7 DAYS; 11-20 MINUTES DoD QUALIFIED NONPHYSICIAN HEALTH WATER/WASTEWATER ENGINEER ONLINE DIGITAL ASSESSMENT AND MANAGEMENT, FOR AN ESTABLISHED PATIENT, FOR UP TO 7 DAYS, CUMULATIVE TIME DURING THE 7 DAYS; 11-20 MINUTES DoD TELE ASSESS & MGT SRV PROV QUAL NONPHYS HLTH CARE PRO TO EST PAT,PARENT,GUARD NOT ORIG REL ASSESS & MGT SRV PROV W/IN PREV 7 DAYS NOR LEAD ASSESS & MGT SRV/PX W/IN NXT 24 HR/SOON APT;5-10 MIN MED DIS 020 DoD SCREENING PAPANICOLAOU SMEAR; OBTAINING, PREPARING AND CONVEYANCE OF CERVICAL OR VAGINAL SMEAR TO LABORATORY 019 DoD TELE ASSESS & MGT SRV PROV QUAL NONPHYS HLTH CARE PRO TO EST PAT,PARENT,GUARD NOT ORIG REL ASSESS & MGT SRV PROV W/IN PREV 7 DAYS NOR LEAD ASSESS & MGT SRV/PX W/IN NXT 24 HR/SOON APT;5-10 MIN MED DIS 019 DoD TELE ASSESS & MGT SRV PROV QUAL NONPHYS HLTH CARE PRO TO EST PAT,PARENT,GUARD NOT ORIG REL ASSESS & MGT SRV PROV W/IN PREV 7 DAYS NOR LEAD ASSESS & MGT SRV/PX W/IN NXT 24 HR/SOON APT;5-10 MIN MED DIS 018 DoD TELE ASSESS & MGT SRV PROV QUAL NONPHYS HLTH CARE PRO TO EST PAT,PARENT,GUARD NOT ORIG REL ASSESS & MGT SRV PROV W/IN PREV 7 DAYS NOR LEAD ASSESS & MGT SRV/PX W/IN NXT 24 HR/SOON APT;5-10 MIN MED DIS 018 DoD CASE MANAGEMENT, EACH 15 MINUTES 017 DoD CASE MANAGEMENT, EACH 15 MINUTES 017 DoD TELE ASSESS & MGT SRV PROV QUAL NONPHYS HLTH CARE PRO TO EST PAT,PARENT,GUARD NOT ORIG REL ASSESS & MGT SRV PROV W/IN PREV 7 DAYS NOR LEAD ASSESS & MGT SRV/PX W/IN NXT 24 HR/SOON APT;5-10 MIN MED DIS 017 DoD TELE ASSESS & MGT SRV PROV QUAL NONPHYS HLTH CARE PRO TO EST PAT,PARENT,GUARD NOT ORIG REL ASSESS & MGT SRV PROV W/IN PREV 7 DAYS NOR LEAD ASSESS & MGT SRV/PX W/IN NXT 24 HR/SOON APT;5-10 MIN MED DIS 017 DoD TELE ASSESS & MGT SRV PROV QUAL NONPHYS HLTH CARE PRO TO EST PAT,PARENT,GUARD NOT ORIG REL ASSESS & MGT SRV PROV W/IN PREV 7 DAYS NOR LEAD ASSESS & MGT SRV/PX W/IN NXT 24 HR/SOON APT;5-10 MIN MED DIS 017 DoD TELE ASSESS & MGT SRV PROV QUAL NONPHYS HLTH CARE PRO TO EST PAT,PARENT,GUARD NOT ORIG REL ASSESS & MGT SRV PROV W/IN PREV 7 DAYS NOR LEAD ASSESS & MGT SRV/PX W/IN NXT 24 HR/SOON APT;5-10 MIN MED DIS 017 DoD TELE ASSESS & MGT SRV PROV QUAL NONPHYS HLTH CARE PRO TO EST PAT,PARENT,GUARD NOT ORIG REL ASSESS & MGT SRV PROV W/IN PREV 7 DAYS NOR LEAD ASSESS & MGT SRV/PX W/IN NXT 24 HR/SOON APT;5-10 MIN MED DIS 017 DoD TELE ASSESS & MGT SRV PROV QUAL NONPHYS HLTH CARE PRO TO EST PAT,PARENT,GUARD NOT ORIG REL ASSESS & MGT SRV PROV W/IN PREV 7 DAYS NOR LEAD ASSESS & MGT SRV/PX W/IN NXT 24 HR/SOON APT;5-10 MIN MED DIS 015 DoD TELE ASSESS & MGT SRV PROV QUAL NONPHYS HLTH CARE PRO TO EST PAT,PARENT,GUARD NOT ORIG REL ASSESS & MGT SRV PROV W/IN PREV 7 DAYS NOR LEAD ASSESS & MGT SRV/PX W/IN NXT 24 HR/SOON APT;5-10 MIN MED DIS 014 DoD TELE ASSESS & MGT SRV PROV QUAL NONPHYS HLTH CARE PRO TO EST PAT,PARENT,GUARD NOT ORIG REL ASSESS & MGT SRV PROV W/IN PREV 7 DAYS NOR LEAD ASSESS & MGT SRV/PX W/IN NXT 24 HR/SOON APT;5-10 MIN MED DIS 014 DoD TELE ASSESS & MGT SRV PROV QUAL NONPHYS HLTH CARE PRO TO EST PAT,PARENT,GUARD NOT ORIG REL ASSESS & MGT SRV PROV W/IN PREV 7 DAYS NOR LEAD ASSESS & MGT SRV/PX W/IN NXT 24H/SOON APT; 11-20 MIN MED DIS 014 DoD COLORECTAL CANCER SCREENING; COLONOSCOPY ON INDIVIDUAL NOT MEETING CRITERIA FOR HIGH RISK 014 DoD TELE ASSESS & MGT SRV PROV QUAL NONPHYS HLTH CARE PRO TO EST PAT,PARENT,GUARD NOT ORIG REL ASSESS & MGT SRV PROV W/IN PREV 7 DAYS NOR LEAD ASSESS & MGT SRV/PX W/IN NXT 24H/SOON APT; 21-30 MIN MED DIS 014 [facility] OPHTHALMOLOGICAL SERVICES: MEDICAL EXAMINATION AND EVALUATION WITH INITIATION OF DIAGNOSTIC AND TREATMENT PROGRAM; COMPREHENSIVE, NEW PATIENT, 1 OR MORE VISITS DoD TELE ASSESS & MGT SRV PROV QUAL NONPHYS HLTH CARE PRO TO EST PAT,PARENT,GUARD NOT ORIG REL ASSESS & MGT SRV PROV W/IN PREV 7 DAYS NOR LEAD ASSESS & MGT SRV/PX W/IN NXT 24 HR/SOON APT;5-10 MIN MED DIS [facility] URINE TEST, BY VISUAL COLOR COMPARISON METHODS [facility] MEDICATION THERAPY MGT SERVICE(S) PROVIDED,A PHARMACIST,INDIV,FAC E-TO-FACE W PATIENT,WITH ASSESS & INTERVENE IF PROVIDED;EA ADDITION 15 MINUTES (LIST SEPARATELY IN ADDITION TO CODE FOR PRIM SERVICE) [facility] MEDICATION THERAPY MANAGEMENT SERVICE(S) PROVIDED BY A PHARMACIST, INDIVIDUAL, [id number] WITH PATIENT, WITH ASSESSMENT AND INTERVENTION IF PROVIDED; INITIAL 15 MINUTES, ESTABLISHED PATIENT 011 [facility] MEDICATION THERAPY MGT SERVICE(S) PROVIDED,A PHARMACIST,INDIV,FAC E-TO-FACE W PATIENT,WITH ASSESS & INTERVENE IF PROVIDED;EA ADDITION 15 MINUTES (LIST SEPARATELY IN ADDITION TO CODE FOR PRIM SERVICE) [facility] MEDICATION THERAPY MGT SERVICE(S) PROVIDED,A PHARMACIST,INDIV,FAC E-TO-FACE W PATIENT,WITH ASSESS & INTERVENE IF PROVIDED;EA ADDITION 15 MINUTES (LIST SEPARATELY IN ADDITION TO CODE FOR PRIM SERVICE) [facility] SMOKING CESSATION CLASSES, NON-PHYSICIAN PROVIDER, PER SESSION 011 DoD TELE ASSESS & MGT SRV PROV QUAL NONPHYS HLTH CARE PRO TO EST PAT,PARENT,GUARD NOT ORIG REL ASSESS & MGT SRV PROV W/IN PREV 7 DAYS NOR LEAD ASSESS & MGT SRV/PX W/IN NXT 24 HR/SOON APT;5-10 MIN MED DIS 011 DoD TELE ASSESS & MGT SRV PROV QUAL NONPHYS HLTH CARE PRO TO EST PAT,PARENT,GUARD NOT ORIG REL ASSESS & MGT SRV PROV W/IN PREV 7 DAYS NOR LEAD ASSESS & MGT SRV/PX W/IN NXT 24 HR/SOON APT;5-10 MIN MED DIS 011 DoD DETERMINATION OF REFRACTIVE STATE 010 DoD ACUPUNCTURE, 1 OR MORE NEEDLES; WITHOUT ELECTRICAL STIMULATION, INITIAL 15 MINUTES OF PERSONAL ONE-ON-ONE CONTACT WITH THE PATIENT 010 DoD SCREENING PAPANICOLAOU SMEAR; OBTAINING, PREPARING AND CONVEYANCE OF CERVICAL OR VAGINAL SMEAR TO LABORATORY 010 DoD DETERMINATION OF REFRACTIVE STATE 010 DoD DETERMINATION OF REFRACTIVE STATE 009 DoD OPHTHALMOLOGICAL SERVICES: MEDICAL EXAMINATION AND EVALUATION, WITH INITIATION OR CONTINUATION OF DIAGNOSTIC AND TREATMENT PROGRAM; INTERMEDIATE, ESTABLISHED PATIENT 009 DoD DETERMINATION OF REFRACTIVE STATE 009 DoD OPHTHALMIC ULTRASOUND, ECHOGRAPHY, DIAGNOSTIC; CORNEAL PACHYMETRY, UNILATERAL OR BILATERAL (DETERMINATION OF CORNEAL THICKNESS) 009 DoD DETERMINATION OF REFRACTIVE STATE 009 DoD FITTING OF SPECTACLES, EXCEPT FOR APHAKIA; MONOFOCAL 005 DoD INJECTION, KETOROLAC TROMETHAMINE, PER 15 MG 004 DoD COLLECTION OF VENOUS BLOOD BY VENIPUNCTURE 004 DoD SCREENING PAPANICOLAOU SMEAR; OBTAINING, PREPARING AND CONVEYANCE OF CERVICAL OR VAGINAL SMEAR TO LABORATORY 004 DoD PHYSICAL THERAPY RE-EVALUATION 003 DoD MANUAL THERAPY TECHNIQUES (EG, MOBILIZATION/ MANIPULATION, MANUAL LYMPHATIC DRAINAGE, MANUAL TRACTION), 1 OR MORE REGIONS, EACH 15 MINUTES 003 DoD DETERMINATION OF REFRACTIVE STATE 003 DoD THERAPEUTIC PROCEDURE, 1 OR MORE AREAS, EACH 15 MINUTES; THERAPEUTIC EXERCISES TO DEVELOP STRENGTH AND ENDURANCE, RANGE OF MOTION AND FLEXIBILITY 003 DoD THERAPEUTIC PROCEDURE, 1 OR MORE AREAS, EACH 15 MINUTES; THERAPEUTIC EXERCISES TO DEVELOP STRENGTH AND ENDURANCE, RANGE OF MOTION AND FLEXIBILITY 002 DoD THERAPEUTIC ACTIVITIES, DIRECT (ONE-ON-ONE) PATIENT CONTACT (USE OF DYNAMIC ACTIVITIES TO IMPROVE FUNCTIONAL PERFORMANCE), EACH 15 MINUTES 002 DoD THERAPEUTIC ACTIVITIES, DIRECT (ONE-ON-ONE) PATIENT CONTACT (USE OF DYNAMIC ACTIVITIES TO IMPROVE FUNCTIONAL PERFORMANCE), EACH 15 MINUTES 002 DoD THERAPEUTIC ACTIVITIES, DIRECT (ONE-ON-ONE) PATIENT CONTACT (USE OF DYNAMIC ACTIVITIES TO IMPROVE FUNCTIONAL PERFORMANCE), EACH 15 MINUTES 002 [facility] THERAPEUTIC ACTIVITIES, DIRECT (ONE-ON-ONE) PATIENT CONTACT (USE OF DYNAMIC ACTIVITIES TO IMPROVE FUNCTIONAL PERFORMANCE), EACH 15 MINUTES 002 [facility] THERAPEUTIC PROCEDURE,1 OR MORE AREAS,EACH 15 MINUTES;NEUROMUSCULA R REEDUCATION OF MOVEMENT,BALANCE,WHITE SHOE EXAMINER RDINATION,KINESTHETI C SENSE,POSTURE,AND/OR PROPRIOCEPTION FOR SITTING AND/OR STANDING ACTIVITIES 002 DoD THERAPEUTIC ACTIVITIES, DIRECT (ONE-ON-ONE) PATIENT CONTACT (USE OF DYNAMIC ACTIVITIES TO IMPROVE FUNCTIONAL PERFORMANCE), EACH 15 MINUTES DoD THERAPEUTIC PROCEDURE,1 OR MORE AREAS,EACH 15 MINUTES;NEUROMUSCULA R REEDUCATION OF MOVEMENT,BALANCE,WHITE SHOE EXAMINER RDINATION,KINESTHETI C SENSE,POSTURE,AND/OR PROPRIOCEPTION FOR SITTING AND/OR STANDING ACTIVITIES 002 [facility] THERAPEUTIC ACTIVITIES, DIRECT (ONE-ON-ONE) PATIENT CONTACT (USE OF DYNAMIC ACTIVITIES TO IMPROVE FUNCTIONAL PERFORMANCE), EACH 15 MINUTES 002 [facility] THERAPEUTIC PROCEDURE, 1 OR MORE AREAS, EACH 15 MINUTES; THERAPEUTIC EXERCISES TO DEVELOP STRENGTH AND ENDURANCE, RANGE OF MOTION AND FLEXIBILITY [facility] PHYSICAL THERAPY EVALUATION [facility] OPEN TREATMENT OF TRIMALLEOLAR ANKLE FRACTURE, INCLUDES INTERNAL FIXATION, WHEN PERFORMED, MEDIAL AND/OR LATERAL MALLEOLUS; WITHOUT FIXATION OF POSTERIOR LIP 002 [facility] LOWER GI SERIES 998 DoD INSERTION OF OTHER (NASO-)GASTRIC TUBE 998 [facility] DIAGNOSTIC ULTRASOUND OF DIGESTIVE SYSTEM 998 [facility] INTRAVENOUS PYELOGRAM 998 [facility] Non-Physician Phone Call To Patient/Provider Brief (5-10min) Non-Physician Phone Call To Patient/Provider Brief (5-10min) [phone] SANDI ALDRIDGE [facility] Non-Physician Phone Call To Patient/Provider Brief (5-10min) Non-Physician Phone Call To Patient/Provider Brief (5-10min) [phone] SANDI ALDRIDGE [facility] Non-Physician Phone Call To Patient/Provider Brief (5-10min) Non-Physician Phone Call To Patient/Provider Brief (5-10min) [phone] PAULO HARYD [facility] Non-Physician Phone Call To Patient/Provider Brief (5-10min) Non-Physician Phone Call To Patient/Provider Brief (5-10min) [phone] PAULO HARDY [facility] Case Management, each 15 minutes 017 LORETTACHUY [facility] Case Management, each 15 minutes 017 CHUY BURGOS [facility] Non-Physician Phone Call To Patient/Provider Brief (5-10min) Non-Physician Phone Call To Patient/Provider Brief (5-10min) [phone] PAULO HARDY [facility] Non-Physician Phone Call To Patient/Provider Brief (5-10min) Non-Physician Phone Call To Patient/Provider Brief (5-10min) [phone] PAULO HARDY [facility] Non-Physician Phone Call To Patient/Provider Brief (5-10min) Non-Physician Phone Call To Patient/Provider Brief (5-10min) [phone] ALTON HARDY [facility] Non-Physician Phone Call To Patient/Provider Brief (5-10min) Non-Physician Phone Call To Patient/Provider Brief (5-10min) [phone] WILLI MARTINEZ [facility] Non-Physician Phone Call To Patient/Provider Brief (5-10min) Non-Physician Phone Call To Patient/Provider Brief (5-10min) [phone] REVA COOK [facility] Non-Physician Phone Call To Patient/Provider Brief (5-10min) Non-Physician Phone Call To Patient/Provider Brief (5-10min) [phone] JAMEL EARLY [facility] Non-Physician Phone Call To Pt/Provider Intermed (11-20 min) Non-Physician Phone Call To Pt/Provider Intermed (11-20 min) [id number] SHARMAINE MAYES [facility] Colorectal cancer screening; colonoscopy on individual not meeting criteria for high risk 014 TRAVON LAWS [facility] Non-Physician Phone Call To Pt/Provider Lengthy (21-30 min) Non-Physician Phone Call To Pt/Provider Lengthy (21-30 min) [phone] WILLI MARTINEZ [facility] Ophthalmological New Patient Start Comprehensive Care Ophthalmological New Patient Start Comprehensive Care [phone] MAHOGANY RAMIRES [facility] Determination Of Refractive State Determination Of Refractive State [phone] MAHOGANY RAMIRES [facility] Endometrial Biopsy By Suction Endometrial Biopsy By Suction [phone] JOSE HENNING [facility] Non-Physician Phone Call To Patient/Provider Brief (5-10min) Non-Physician Phone Call To Patient/Provider Brief (5-10min) [phone] EUGENEANGUS [facility] Test Test [id number] JOSE HENNING [facility] Medication Management By Pharmacist Each Additional 15 Min Medication Management By Pharmacist Each Additional 15 Min [phone] TJ ROSA [facility] Med Management By Pharmacist Initial 15 Min Estab Patient Med Management By Pharmacist Initial 15 Min Estab Patient [id number] [id number] TJ ROSA S [facility] Med Management By Pharmacist Initial 15 Min Estab Patient Med Management By Pharmacist Initial 15 Min Estab Patient [phone] SAMPSON NOE [facility] Medication Management By Pharmacist Each Additional 15 Min Medication Management By Pharmacist Each Additional 15 Min [phone] TJ ROSA S [facility] Med Management By Pharmacist Initial 15 Min Estab Patient Med Management By Pharmacist Initial 15 Min Estab Patient [phone] TJ ROSA S [facility] Medication Management By Pharmacist Each Additional 15 Min Medication Management By Pharmacist Each Additional 15 Min [phone] TJ ROSA S [facility] Med Management By Pharmacist Initial 15 Min Estab Patient Med Management By Pharmacist Initial 15 Min Estab Patient [id number] TJ ROSA S [facility] Smoking ce ation cla es, non-physician provider, per se ion 011 TJ ROSA S [facility] Medication Management By Pharmacist Each Additional 15 Min Medication Management By Pharmacist Each Additional 15 Min [id number] [phone] TJ ROSA S [facility] Med Management By Pharmacist Initial 15 Min New Patient Med Management By Pharmacist Initial 15 Min New Patient [phone] TJ ROSA S [facility] Non-Physician Phone Call To Patient/Provider Brief (5-10min) Non-Physician Phone Call To Patient/Provider Brief (5-10min) [phone] REJI CELESTINE Krzysztof [facility] Non-Physician Phone Call To Patient/Provider Brief (5-10min) Non-Physician Phone Call To Patient/Provider Brief (5-10min) [phone] ANGUS EUGENE Ophthalmological Prior Patient Start Intermediate Level Care Ophthalmological Prior Patient Start Intermediate Level Care [id number] [phone] JACK AVITIA Determination Of Refractive State Determination Of Refractive State 010 JACK AVITIA Osteopathic Manip Treatment (OMT) 1-2 Body Regions Involved Osteopathic Manip Treatment (OMT) 1-2 Body Regions Involved [id number] STACY PAZ Acupunct One Or More Crosby W/O Stimulation Initial 15 Min Acupunct One Or More Crosby W/O Stimulation Initial 15 Min [id number] JORDAN LANGE Screening papanicolaou smear; obtaining, preparing and conveyance of cervical or vaginal smear to laboratory 010 SHEREEN NOVA [facility] Determination Of Refractive State Determination Of Refractive State 04350 010 MARC VICTOR Ophthalmological Prior Patient Start Intermediate Level Care Ophthalmological Prior Patient Start Intermediate Level Care 70163 010 MARC VICTOR Determination Of Refractive State Determination Of Refractive State 32370 009 MARC VICTOR Ophthalmological Prior Patient Start Intermediate Level Care Ophthalmological Prior Patient Start Intermediate Level Care 73344 009 MARC VICTOR Ophthalmological Prior Patient Start Intermediate Level Care Ophthalmological Prior Patient Start Intermediate Level Care 24942 009 MARC VICTOR Determination Of Refractive State Determination Of Refractive State 69135 009 NISREEN ARIZA Ophthalmological Prior Patient Start Comprehensive Care Ophthalmological Prior Patient Start Comprehensive Care 50446 009 NISREEN ARIZA Determination Of Refractive State Determination Of Refractive State 76605 009 RINA ALEXANDER Ophthalmological Prior Patient Start Intermediate Level Care Ophthalmological Prior Patient Start Intermediate Level Care 81567 009 RINA ALEXANDER Postoperative Visit, Without Charge Postoperative Visit, Without Charge 79368 009 BANG CHATMAN Photorefractive keratectomy (PRK) 009 BANG CHATMAN Ophthalmological Prior Patient Start Intermediate Level Care Ophthalmological Prior Patient Start Intermediate Level Care [address]Supervised Group Educational Services 009 BANG CHATMAN Determination Of Refractive State Determination Of Refractive State 15747 009 ROLES, RINA Pena Corneal Pachymetry Corneal Pachymetry 73656 23/12 009 ROLESRINA External Ocular Photography External Ocular Photography 06755 009 ROLESRINA Diagnostic Imaging Ocular Coherence Topography 009 ROLES, IRNA Pena Computerized Corneal Topography Computerized Corneal Topography 88371 009 ROLESRINA Ophthalmological New Patient Start Comprehensive Care Ophthalmological New Patient Start Comprehensive Care 05946 009 ROLES, RINA Pena Determination Of Refractive State Determination Of Refractive State 55724 009 MARC VICTOR Corneal Pachymetry, Bilateral With Interpret And Report Corneal Pachymetry, Bilateral With Interpret And Report 69242 009 MARC VICTOR Computerized Corneal Topography Computerized Corneal Topography 26607 009 MARC VICTOR Ophthalmological Prior Patient Start Comprehensive Care Ophthalmological Prior Patient Start Comprehensive Care 87629 009 MARC VICTOR Determination Of Refractive State Determination Of Refractive State 98410 009 MARC VICTOR Ophthalmological New Patient Start Comprehensive Care Ophthalmological New Patient Start Comprehensive Care 86186 009 MARC VICTOR [facility] Oral Surgery Tooth Extraction Oral Surgery Tooth Extraction 76755 008 ISAI PASCUAL 1984-wisdom teeth removed [facility] Laparoscopy With Excision Of Ectopic Laparoscopy With Excision Of Ectopic 65644 008 ISAI PASCUAL 1989 [facility] Treatment Of The Ankle Treatment Of The Ankle 68621 ISAI PASCUAL Pt reports ankle surgery x2 in 2002 [facility] Tonsillectomy Tonsillectomy 01460 008 ISAI PASCUAL 1996 [facility] Abdominal / Peritoneal Surgery Abdominal / Peritoneal Surgery 57060 008 ISAI PASCUAL [facility] Spectacles Services Fitting Monofocals (Not For Aphakia) [facility] [facility] Fitting Monofocals (Not For Aphakia) 85104 008 PATRICIA CATES [facility] Determination Of Refractive State Determination Of Refractive State 68503 008 PATRICIA CATES [facility] Ophthalmological Prior Patient Start Comprehensive Care Ophthalmological Prior Patient Start Comprehensive Care 77103 008 PATRICIA CATES [facility] Whole Body Integumentary Photography, Physician Request Whole Body Integumentary Photography, Physician Request 58585 008 ZULLY RAM [facility] Gynecologic Surgery Gynecologic Surgery 05501 0 008 ISAI PASCUAL urine leakage surgery [facility] Whole Body Integumentary Photography, Physician Request Whole Body Integumentary Photography, Physician Request [id number] 008 YO [facility] Whole Body Integumentary Photography, Physician Request Whole Body Integumentary Photography, Physician Request [id number] 007 YO [facility] Supervised Injection Intramuscular Supervised Injection Intramuscular 74949 007 GLENN CARRASCO [facility] Screening papanicolaou smear; obtaining, preparing and conveyance of cervical or vaginal smear to laboratory 007 GLENN CARRASCO [facility] Determination Of Refractive State Determination Of Refractive State 53160 006 QUISPEPRATEEK [facility] Spectacles Services Fitting Monofocals (Not For Aphakia) [facility] Fitting Monofocals (Not For Aphakia) 14644 006 QUISPEPRATEEK H [facility] Ophthalmological New Patient Start Comprehensive Care Ophthalmological New Patient Start Comprehensive Care 28888 006 QUISPEBERTHAPRATEEK H [facility] Screening papanicolaou smear; obtaining, preparing and conveyance of cervical or vaginal smear to laboratory RAS DAVALOS [facility] Non-Physician Phone Call To Patient/Provider Brief (5-10min) Non-Physician Phone Call To Patient/Provider Brief (5-10min) 48899 HAZEL STODDARD [facility] Waiver services; not otherwise specified (NOS) SHARMAINE SARMIENTO [facility] Social History Combined list of available smoking, tobacco, and other social history from 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 Social History Type Response Date Comment Sourc e Sex Representation Female (finding) 12/31/2022 Unknown Organization Tobacco Frequent/Daily exposure to secondhand smoke in indoor/confined spaces Yes. Cigarette use: Yes-current everyday cigarette user. Average PACKS per day: (10 cigarettes = 0.5 packs) 0.5. Total years of smoking cigarettes: 45. Other Tobacco use: Yes-current everyday other tobacco user (not cigarettes). Other Tobacco type: vape. Ambulatory Pharmacy Sexual Orientation Ambula tory Pharmacy Gender identity Ambulator y Pharmacy This section is an empty social history section. [facility] Assessment and Plan Combined list of future care activities from Department of Defense and Veterans Affairs facilities (e.g., assessment and plan notes, appointments, orders, and referrals). Additional future care activities may be listed in the Plan of Care section. Result Assessment and Plan Date Source Assessment and Plan Extracted from:Title : 60 yo Well/Recurrent UTIS/Med Refills Author: SUSAN ROSA, Date: 04/10/25 1. W ell adult General Prevention: Colon Cancer Screening: ( 45/50-75 Q10 years) N ext Due in 2030 Lung Cancer screening: L ast _; DUE _ O rdered Substance use: Denies Weight: b riefly reviewed recommendations for active lifestyle and healthy diet Hep C Screen: UTD HIV Screen: Negative _ HgbA1C: Due Mammo (40-74 Q2 years)- Due, BIRADS 2 2023 - - BRCA: N o known personal or FHx of breast/ovarian/tubal/peritone al cancer or known familial gene mutations Pap: _ UTD Due in 2028 STI: L ow risk DEXA: _ U TD Osteopenia Immunizations: Flu Immunization: _ D ue Fall 2020 Pneumococcal Immunization: A ge 50/18-50 for diabete/high risk Zoster Immunization: _ UTD COVID-19: U TD Ordered: Comprehensive Metabolic Panel Hemoglobin A1c Lipid Panel MG Mammo Theo Screening Bilateral 2. N icotine dependence Encouraged smoking cessation Ordered CT Low Dose Lung Screening Ordered: CT Low Dose Lung Screening 3. A llergic rhinitis Chronic, Treated Plan: Refill Flonase 4. R ecurrent UTI - urinary tract infection Chronic, Treated History of kidney stones with recurrent UTIs. Follows with Urology. Last course of antibiotics was 2-3 weeks ago. Had UTI and was given Macrobid. Urine cx showed resistant to cefazolin but sensitive to Macrobid. Had rash on macrobid. UTI symptoms for t he past year and a half. Plan: POC UA ordered shows Nitrite Positive with Mod LE Urine Culture collected Levofloxacin 750 mg PO qd for 5 days Continue to Follow with Urology for Kidney stone removal Ordered: levoFLOXacin(levoFLOXacin 750 mg oral tablet), 1 tab(s), Oral, every 24 hr, X 5 days, # 5 tab(s), 0 total refill(s), Acute, 04/15/2025, Pharmacy: [facility], Urinary, complicated UTI/pyelonephritis [Not filled] Urinalysis with Microscopic and Culture if Indicated 5. E czema Chronic, Controlled Small 1cm diameter erythematous patches on LLE Plan: Refill Clobetasol Cream Explained risk of thinning skin and hypopigmentation to patient with overuse of medication. Patient voiced understanding 6. E ssential hypertension Chronic, Controlled Plan: Refill Propanolol Ordered: Creatinine, Urine Microalbumin Level, Urine 7. O besity Chronic, Treated Plan: Nutrition Referral Continue Exercise RTO in 3 months for possible pharmaceutical intervention Ordered: Referral Request 2.0 - [facility] 8. V accination given Pneumovax given in office today. See Tech's Note. Orders: aspirin(aspirin 81 mg oral capsule), 1 cap(s), Oral, every 24 hr, # 90 cap(s), 2 total refill(s), Maintenance, Pharmacy: [facility] [Federal Rx: #90 last filled 04/10/25] atorvastatin(atorvastatin 40 mg oral tablet), 1 tab(s), Oral, Daily, for cholesterol, # 90 tab(s), 2 total refill(s), Maintenance, Pharmacy: [facility] [Federal Rx: #90 last filled 04/10/25] cholecalciferol(cholecalcifer ol 50 mcg (2000 intl units) oral capsule), 1 cap(s), Oral, Daily, # 90 cap(s), 3 total refill(s), Maintenance, Pharmacy: [facility] [Not filled] clobetasol topical(clobetasol 0.05% topical cream), 1 appl(s), Topical, BID, # 60 g, 1 total refill(s), Maintenance, Pharmacy: [facility] [Federal Rx: #60 last filled 04/10/25] fluticasone nasal(fluticasone 50 mcg/inh nasal spray), 100 mcg, Nostril-Both, Daily, # 48 g, 3 total refill(s), Maintenance, Pharmacy: [facility] [Federal Rx: #48 last filled 04/10/25] omeprazole(omeprazole 20 mg oral delayed release capsule), 1 cap(s), Oral, BID(AC), 30 to 60 minutes before meal, # 180 cap(s), 3 total refill(s), Maintenance, Pharmacy: [facility] [Federal Rx: #180 last filled 04/10/25] propranolol(propranolol 80 mg oral tablet), 1 tab(s), Oral, BID, # 180 tab(s), 2 total refill(s), Maintenance, Pharmacy: [facility] [Federal Rx: #180 last filled 04/10/25] Susan Rosa DO, [facility], [facility] Resident Provider Addendum by CRISTINO MONDRAGNO MD, Family Medicine on April 10, 2025 16:19:05 CDT I certify that I was present for case discussion in the Family Medicine preceptor room at the time of this encounter. I have reviewed the note and agree with the findings, assessment, and plan except as I have documented below. Follow up as listed. All labs/imaging/consults to be followed by the ordering provider. Cristino Mondragon MD Extracted from:Title: 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 Note Author: ALEXSANDRA DICK, KAM, Women's Health Date: 11/29/24 1. O steopenia R eviewed T-score and Frax risk percentage. Osteopenia. Discussed recommended fall prevention measures, continue with adequate daily calcium and Vitamin D. Rpt in 3 to 5 yrs, sooner if changes in risk factors. Pt v/u and agrees. 2. N icotine dependence E ncouraged smoking cessation Alexsandra Dick, [place], [facility] Women s Health Nurse Practitioner, Board Certified [address] [place] [address] [employer] [address] [place] [address] comm: Extracted from:Title: FM- med refill Author: CANDY ESCALONA MD Date: 07/13/24 1. O ther disorders of bone density and structure I contacted the patient for medication refill - requesting Ca Carbonate 600mg and cholecalciferol 50mcg daily refilled. No concerns on the medications. Will follow at next well visit for hx of osteopenia. -Both meds refilled Maj RAZA USAF, MD [facility], PGY-3 Orders: calcium carbonate(calcium carbonate 1,500 mg (elemental Ca 600 mg) oral tab), 600 mg, Oral, Daily, # 90 tab(s), 3 total refill(s), Maintenance, 600 mg Oral Daily, Pharmacy: [facility] [Not filled] cholecalciferol(cholecalcifer ol 50 mcg (2000 intl units) oral capsule), 1 cap(s), Oral, Daily, # 90 cap(s), 3 total refill(s), Maintenance, 1 cap(s) Oral Daily, Pharmacy: [facility] [Not filled] Addendum by ASIA PAVON MD on July 14, 2024 12:52:20 CDT On the day of encounter, I was available for discussion with the resident physician. Case was discussed with me in the Teach Room. I agree with the assessment and plan of care as documented above with any exceptions/additions noted below if necessary. All labs/rads/consults to be followed by the ordering provider. DO Jacques Rhoades [facility] Family Medicine Physician Extracted from:Title: 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 Note Author: ALEXSANDRA DICK NP Date: 05/31/24 1. O ther abnormal uterine and vaginal bleeding Reviewed pelvic US results. Endometrial lining w/out focal thickening. 3mm thin. Possible atrophy if discharge is vaginally. Pt has been experiencing this small amt of ' constantino' colored discharge/fluid on her daily pad x 2 years. No active bleeding. She is uncertain the orgin of it , but doesn't believe it is from hemorrhoids. It may be possibly vaginally or urinary. Nml pelvic exam at last appt, with age-related vaginal atrophy. She has had two bladder slings and daily incontinence in which I just placed a referral for Urology at her last appt. I recommend pt see Urology. F/u after Urology if symptoms persist or prn new vaginal symptoms. Pt v/u and agrees. SALVADOR Cardoza, [facility] Women s Health Nurse Practitioner, Board Certified [address] [place] [address] [employer] [address] [place] [address] comm: Extracted from:Title: 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 Note Author: ALEXSANDRA DICK, SHEET METAL ROOFER Date: 05/22/24 1. E ncounter for gynecological examination (general) (routine) with abnormal findings Cervical Cancer Screening: Pap Smear and HPV testing c ollected today. If negative, pt may repeat in 5 years Breast Cancer Screening:. CBE n ormal today.. Discussed breast self-awareness. Mammogram u p to date. Pelvic exam: n ml speculum/pelvic exam Colon Cancer Screening: Initiate at age 45 for average risk patients. P atient is up to date on screening. Bone Health: Encouraged weight bearing exercises, adequate Calcium and Vitamin D, fall prevention measures. _ Immunizations: s tatus reviewed. Reproductive Life Planning: Is postmenopausal. Mental Health: P atient declined any MH needs today Age-appropriate Prevention Education: Discussed tobacco and alcohol use; healthy eating and exercise; preventive screening for chronic diseases. 2. E ncounter for screening for malignant neoplasm of cervix 3. O ther abnormal uterine and vaginal bleeding Pt wears daily pad. She reports some brown/dk red occasionally on her pad over the past 2 years. She is uncertain where it is coming from. Pelvic US ordered to eval endometrial lining. 4. U rinary incontinence Hx of Blader sling in 2004, and 2020. Continues to have incontinence. Needs U rology continuation. R eferral to Urology placed. 5. O ther disorders of bone density and structure Osteopenia. Due to repeat DXA. Referral placed. 6. O besity Reviewed BMI: Judith kevin Mass Index Measured: 32.04 kg/m2 (05/20/24 11:05:00) Encouraged a minimum of 150 minutes of moderate-intensity physical activity t o include?muscle strengthening activities weekly per the CDC. Discussed healthy dietary measures. 7. N icotine dependence Encouraged cessation. [facility] recommended Reviewed with patient discharge instructions. Written discharge instructions were provided to the patient. Recommended patient to follow up regularly for WWEs, s ooner as discussed above, or as needed for WH concerns, symptoms, or questions. Alexsandra Dick, [facility], [facility] Women s Health Nurse Practitioner, Board Certified [address] [place] [address] [employer] [address] [place] [address] comm: Extracted from:Title: [facility]- UTI Author: ASIA PAVON MD Date: 04/25/24 1. U rinary tract infection Acute, unknown duration given presence of symptoms for months. No s/sx concerning for pyelonephritis or systemic infection at this time. - reviewed urine culture results (see mccauley results section). Susceptible to cephalosporins and confirmed that she does not have allergies to medications. - keflex 500mg q12h x7 days - strict return precautions discussed, follow up as needed Ordered: cephalexin(Keflex 500 mg oral capsule), 1 cap(s), Oral, every 12 hr, X 7 days, # 14 cap(s), 0 total refill(s), Acute, 05/02/2024, 1 cap(s) Oral every 12 hr,x7 days, Pharmacy: [facility], Urinary, uncomplicated UTI [Not filled] Capt Asia Pavon DO Family Medicine Faculty Physician [address] [place] [address], [facility] Extracted from:Title: FM - lab f/u Author: CANDY ESCALONA MD Date: 04/01/24 1. H TN - Hypertension Chronic, c ontrolled. Pt with BP within g oal range per [place]-8 guidelineswith goal of < 140/90. No medication side effects or concerns of non-adherence. Currently on propranolol 80 BID - patient unsure why she was started on the medication initially BP control - no prior hx of afib or heart failure on heart surgery. Discussed pros and cons of continuing on beta duran vs other catetogy. As BP is currently well controlled and patient has used controlled will continue on current dose. Also, discussed needs to continue ASA - no obvious reason to need with no prior stroke or heart attack. Discussed pros/cons of chronic med - pt would like to continue. -Refill propranolol and ASA 2. F atigue Discussed initial fatigue labs - WNL. Will plan to complete eval/referral for Urogyn and GI (for chronic GERD) and consider further w/u after for fatigue if needed. Maj LUZ MARINA, MD [facility] [employer] Family Medicine, PGY-2 Orders: aspirin(aspirin 81 mg oral capsule), 1 cap(s), Oral, every 24 hr, # 90 cap(s), 2 total refill(s), Maintenance, 1 cap(s) Oral every 24 hr, Pharmacy: [facility] [Not filled] atorvastatin(atorvastatin 40 mg oral tablet), 1 tab(s), Oral, Daily, for cholesterol, # 90 tab(s), 2 total refill(s), Maintenance, 1 tab(s) Oral Daily,Instr:for cholesterol, Pharmacy: [facility] [Not filled] omeprazole(omeprazole 20 mg oral delayed release tablet), 1 tab(s), Oral, BID, before a meal, # 180 tab(s), 1 total refill(s), Maintenance, 1 tab(s) Oral BID,Instr:before a meal, Pharmacy: [facility] [Not filled] propranolol(propranolol 80 mg oral tablet), 1 tab(s), Oral, BID, # 180 tab(s), 2 total refill(s), Maintenance, 1 tab(s) Oral BID, Pharmacy: [facility] [Not filled] Addendum by DELON BAIN MD on April 15, 2024 17:02:26 CDT I was present and available in the family medicine clinic during the patient's appointment.? The case was discussed with me and I agree with the assessment and plan as documented. ? HLF Extracted from:Title: Office Clinic Note Author: CANDY ESCALONA MD Date: 01/23/24 1. W ell adult Preventative medicine visit with no emergent concerns. Recommendations listed below: ---- CARDIOVASCULAR RISK ASSESSMENT: -Hypertension screening: performed; BP a t goal p er J NC-8 g uidelines ---- VACCINES: - Advised annual flu vaccine - Advised COVID-19 vaccine ----- METABOLIC: - L ipid screening: D UE [_] One time screening, non-fasting (age 17-21) [_] H igh risk (HTN, smoking, DM, FHx) but normal screen before age 21: initiate screening at age 25 (men) and 35 (women): repeat q5yrs if below treatment threshold [_] N ormal screen before age 21 and no risk factors: initiate screening age 35 (men) and 45 (women); repeat q5yrs if below treatment threshold [_] D C screening at age 65 if have had multiple screenings with acceptable measures - D M screening: D UE [_] ADA recommendation for annual screening in adults with BMI > 25 with one or more?risk factor for T2DM ( HTN, HLD, h/o CVD, h/o PCOS, FMHx) o r age 35-70 with BMI >25 ---- CANCER SCREENING: -Mammogram - DUE - L kacie Cancer Screening: DUE [x_] age 50-80 a nd 20 pack-yr smoking hx p er USPSTF - C olon Cancer Screening: U TD [_] age > 4 5 per USPSTF ----- SUBSTANCE USE: Smoker - no interest in stopping ----- SEXUAL HEALTH: [x_] Hepatitis B (age > 1 8; recommendation for one-time s creening) [_x] H epatitis C (age 1 8-79; recommendation for one-time s creening) ----- DIETS: -Low fat: Discussed that low fat diets are considered one of the best strategies to lose or maintain weight. -Mediterranean: Discussed that the Mediterranean diet consists of a diet high in fruits, vegetables, whole grains, etc. Mediterranean diet has been associated with decreased incidence of stroke and CVD. Handout was provided on the Mediterranean diet for patient to review at home. ----- FOLLOW UP: - In 2 week after lab/image w/u Ordered: Hepatitis B/C Virus Panel CT Low Dose Lung Screening MG Mammo Theo Screening Bilateral 2. P ain in left foot Hx exam most c/w tendinopathy, less concern for bone spurs or fracture. Chronic 2 mo duration Plan: XR order placed Will refer to podiatry to Dr. Enriquez that patient is established Plan for home PT if XR negative F/u 6-8 wk if no improvement Ordered: XR Foot Weight Bearing 3+ Left Referral Request 2.0 - [facility] 3. U rinary incontinence Hx of urinary incontinence, requiring referral to urogyn for further eval, hx of bladder sling. OBGyn eval recommended. -Referral placed Ordered: Referral Request 2.0 - [facility] 4. E czema Clobetasol order refilled Ordered: clobetasol topical(clobetasol 0.05% topical cream), 1 appl(s), Topical, BID, PRN dry skin, Apply to eczema as needed, no longer than 2 weeks, # 30 g, 1 total refill(s), Acute, 1 appl(s) Topical BID,PRN:dry skin,Instr:Apply to eczema as needed, no longer than 2 weeks, Pharmacy: [facility] [Not fille 5. H TN - Hypertension On propranolol - controlled. - Maintenance Labs: RFP, ACR, A1C, Lipid Panel ordered - F/u in 2-3 weeks for work up follow up Ordered: Albumin, Random Ur [id number] Creatinine, Urine Microalbumin Panel, Urine 6. G ERD - Gastro-esophageal reflux disease Uncontrolled on omeprazole 20mg daily chronically. Concern for esophageal pathology, r/o cancer vs eosinophilic etiology -Refered to GI for possible upper GI scope -Will adjust medication pending w/u - may try increasing to 40mg daily Ordered: Comprehensive Metabolic Panel 7. F atigue Reported concern for fatigue, more tired with normal activities. No chest pain, arrythmias, or LU. Denies mental health concerns. -Basic w/u - CMP, CBC, ferritin, TSH, Maj LUZ MARINA, MD [facility] Family Medicine, PGY-2 Ordered: CBC w/ Diff Ferritin Iron and TIBC [id number] Thyroid Stimulating Hormone Addendum by TRAVIS DORSEY MD on January 25, 2024 12:27:41 CDT I was present and available in the Family Medicine Clinic to discuss this patient's care for the duration of the appointment. I agree with the residents assessment and plan as document with the following addendum: plan for change to guideline based HTN management at next visit. Travis Dorsey MD. Family Medicine Faculty. Future Scheduled TestsRadiologyCT Low Dose Lung Screening 04/21/25 05/08/2025 [id number] Medgrp-[facility] Assessment and Plan Extracted from:Title : 60 yo Well/Recurrent UTIS/Med Refills Author: SUSAN ROSA DO Date: 04/10/25 1. W rashmi adult General Prevention: Colon Cancer Screening: ( 45/50-75 Q10 years) N ext Due in 2030 Lung Cancer screening: L ast _; DUE _ O rdered Substance use: Denies Weight: b riefly reviewed recommendations for active lifestyle and healthy diet Hep C Screen: UTD HIV Screen: Negative _ HgbA1C: Due Mammo (40-74 Q2 years)- Due, BIRADS 2 2023 - - BRCA: N o known personal or FHx of breast/ovarian/tubal/peritone al cancer or known familial gene mutations Pap: _ UTD Due in 2028 STI: L ow risk DEXA: _ U TD Osteopenia Immunizations: Flu Immunization: _ D ue Fall 2020 Pneumococcal Immunization: A ge 50/18-50 for diabete/high risk Zoster Immunization: _ UTD COVID-19: U TD Ordered: Comprehensive Metabolic Panel Hemoglobin A1c Lipid Panel MG Mammo Theo Screening Bilateral 2. N icotine dependence Encouraged smoking cessation Ordered CT Low Dose Lung Screening Ordered: CT Low Dose Lung Screening 3. A llergic rhinitis Chronic, Treated Plan: Refill Flonase 4. R ecurrent UTI - urinary tract infection Chronic, Treated History of kidney stones with recurrent UTIs. Follows with Urology. Last course of antibiotics was 2-3 weeks ago. Had UTI and was given Macrobid. Urine cx showed resistant to cefazolin but sensitive to Macrobid. Had rash on macrobid. UTI symptoms for t he past year and a half. Plan: POC UA ordered shows Nitrite Positive with Mod LE Urine Culture collected Levofloxacin 750 mg PO qd for 5 days Continue to Follow with Urology for Kidney stone removal Ordered: levoFLOXacin(levoFLOXacin 750 mg oral tablet), 1 tab(s), Oral, every 24 hr, X 5 days, # 5 tab(s), 0 total refill(s), Acute, 04/15/2025, Pharmacy: [facility], Urinary, complicated UTI/pyelonephritis [Not filled] Urinalysis with Microscopic and Culture if Indicated 5. E czema Chronic, Controlled Small 1cm diameter erythematous patches on LLE Plan: Refill Clobetasol Cream Explained risk of thinning skin and hypopigmentation to patient with overuse of medication. Patient voiced understanding 6. E ssential hypertension Chronic, Controlled Plan: Refill Propanolol Ordered: Creatinine, Urine Microalbumin Level, Urine 7. O besity Chronic, Treated Plan: Nutrition Referral Continue Exercise RTO in 3 months for possible pharmaceutical intervention Ordered: Referral Request 2.0 - DoD 8. V accination given Pneumovax given in office today. See Tech's Note. Orders: aspirin(aspirin 81 mg oral capsule), 1 cap(s), Oral, every 24 hr, # 90 cap(s), 2 total refill(s), Maintenance, Pharmacy: [facility] [Federal Rx: #90 last filled 04/10/25] atorvastatin(atorvastatin 40 mg oral tablet), 1 tab(s), Oral, Daily, for cholesterol, # 90 tab(s), 2 total refill(s), Maintenance, Pharmacy: [facility] [Federal Rx: #90 last filled 04/10/25] cholecalciferol(cholecalcifer ol 50 mcg (2000 intl units) oral capsule), 1 cap(s), Oral, Daily, # 90 cap(s), 3 total refill(s), Maintenance, Pharmacy: [facility] [Not filled] clobetasol topical(clobetasol 0.05% topical cream), 1 appl(s), Topical, BID, # 60 g, 1 total refill(s), Maintenance, Pharmacy: [facility] [Federal Rx: #60 last filled 04/10/25] fluticasone nasal(fluticasone 50 mcg/inh nasal spray), 100 mcg, Nostril-Both, Daily, # 48 g, 3 total refill(s), Maintenance, Pharmacy: [facility] [Federal Rx: #48 last filled 04/10/25] omeprazole(omeprazole 20 mg oral delayed release capsule), 1 cap(s), Oral, BID(AC), 30 to 60 minutes before meal, # 180 cap(s), 3 total refill(s), Maintenance, Pharmacy: [facility] [Federal Rx: #180 last filled 04/10/25] propranolol(propranolol 80 mg oral tablet), 1 tab(s), Oral, BID, # 180 tab(s), 2 total refill(s), Maintenance, Pharmacy: [facility] [Federal Rx: #180 last filled 04/10/25] Susan Rosa DO, CAPT, [facility] Resident Provider Addendum by CRISTINO MONDRAGON MD, Family Medicine on April 10, 2025 16:19:05 CDT I certify that I was present for case discussion in the Family Medicine preceptor room at the time of this encounter. I have reviewed the note and agree with the findings, assessment, and plan except as I have documented below. Follow up as listed. All labs/imaging/consults to be followed by the ordering provider. Cristino Mondragon MD Extracted from:Title: 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 Note Author: ALEXSANDRA DICK NP, Women's Health Date: 11/29/24 1. O steopenia R eviewed T-score and Frax risk percentage. Osteopenia. Discussed recommended fall prevention measures, continue with adequate daily calcium and Vitamin D. Rpt in 3 to 5 yrs, sooner if changes in risk factors. Pt v/u and agrees. 2. N icotine dependence E ncouraged smoking cessation SALVADOR Cardoza, [facility] Women s Health Nurse Practitioner, Board Certified [address] [place] [address] [employer] [address] [place] [id number] comm: Extracted from:Title: FM- med refill Author: CANDY ESCALONA MD Date: 07/13/24 1. O ther disorders of bone density and structure I contacted the patient for medication refill - requesting Ca Carbonate 600mg and cholecalciferol 50mcg daily refilled. No concerns on the medications. Will follow at next well visit for hx of osteopenia. -Both meds refilled Maj LUZ MARINA, [facility] Family Medicine, PGY-3 Orders: calcium carbonate(calcium carbonate 1,500 mg (elemental Ca 600 mg) oral tab), 600 mg, Oral, Daily, # 90 tab(s), 3 total refill(s), Maintenance, 600 mg Oral Daily, Pharmacy: [facility] [Not filled] cholecalciferol(cholecalcifer ol 50 mcg (2000 intl units) oral capsule), 1 cap(s), Oral, Daily, # 90 cap(s), 3 total refill(s), Maintenance, 1 cap(s) Oral Daily, Pharmacy: [facility] [Not filled] Addendum by ASIA PAVON MD on July 14, 2024 12:52:20 CDT On the day of encounter, I was available for discussion with the resident physician. Case was discussed with me in the Teach Room. I agree with the assessment and plan of care as documented above with any exceptions/additions noted below if necessary. All labs/rads/consults to be followed by the ordering provider. DO Jacques Rhoades [facility], Family Medicine Physician Extracted from:Title: 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 Note Author: ALEXSANDRA DICK NP Date: 05/31/24 1. O ther abnormal uterine and vaginal bleeding Reviewed pelvic US results. Endometrial lining w/out focal thickening. 3mm thin. Possible atrophy if discharge is vaginally. Pt has been experiencing this small amt of ' constantino' colored discharge/fluid on her daily pad x 2 years. No active bleeding. She is uncertain the orgin of it , but doesn't believe it is from hemorrhoids. It may be possibly vaginally or urinary. Nml pelvic exam at last appt, with age-related vaginal atrophy. She has had two bladder slings and daily incontinence in which I just placed a referral for Urology at her last appt. I recommend pt see Urology. F/u after Urology if symptoms persist or prn new vaginal symptoms. Pt v/u and agrees. Alexsandra Sumner. SALVADOR Dick [facility] Women s Health Nurse Practitioner, Board Certified [address] [place] [address] [address] [place] [address] comm: Extracted from:Title: 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 Note Author: ALEXSANDRA DICK NP Date: 05/22/24 1. E ncounter for gynecological examination (general) (routine) with abnormal findings Cervical Cancer Screening: Pap Smear and HPV testing c ollected today. If negative, pt may repeat in 5 years Breast Cancer Screening:. CBE n ormal today.. Discussed breast self-awareness. Mammogram u p to date. Pelvic exam: n ml speculum/pelvic exam Colon Cancer Screening: Initiate at age 45 for average risk patients. P atient is up to date on screening. Bone Health: Encouraged weight bearing exercises, adequate Calcium and Vitamin D, fall prevention measures. _ Immunizations: s tatus reviewed. Reproductive Life Planning: Is postmenopausal. Mental Health: P atient declined any MH needs today Age-appropriate Prevention Education: Discussed tobacco and alcohol use; healthy eating and exercise; preventive screening for chronic diseases. 2. E ncounter for screening for malignant neoplasm of cervix 3. O ther abnormal uterine and vaginal bleeding Pt wears daily pad. She reports some brown/dk red occasionally on her pad over the past 2 years. She is uncertain where it is coming from. Pelvic US ordered to eval endometrial lining. 4. U rinary incontinence Hx of Blader sling in 2004, and 2020. Continues to have incontinence. Needs U rology continuation. R eferral to Urology placed. 5. O ther disorders of bone density and structure Osteopenia. Due to repeat DXA. Referral placed. 6. O besity Reviewed BMI: Judith brown Mass Index Measured: 32.04 kg/m2 (05/20/24 11:05:00) Encouraged a minimum of 150 minutes of moderate-intensity physical activity t o include?muscle strengthening activities weekly per the CDC. Discussed healthy dietary measures. 7. N icotine dependence Encouraged cessation. [facility] recommended Reviewed with patient discharge instructions. Written discharge instructions were provided to the patient. Recommended patient to follow up regularly for WWEs, s ooner as discussed above, or as needed for WH concerns, symptoms, or questions. Alexsandra Dick, [facility], [facility] Women s Health Nurse Practitioner, Board Certified [address] [place] [address] [address] [place] [address] comm: Extracted from:Title: [facility]- UTI Author: ASIA PAVON MD Date: 04/25/24 1. U rinary tract infection Acute, unknown duration given presence of symptoms for months. No s/sx concerning for pyelonephritis or systemic infection at this time. - reviewed urine culture results (see mccauley results section). Susceptible to cephalosporins and confirmed that she does not have allergies to medications. - keflex 500mg q12h x7 days - strict return precautions discussed, follow up as needed Ordered: cephalexin(Keflex 500 mg oral capsule), 1 cap(s), Oral, every 12 hr, X 7 days, # 14 cap(s), 0 total refill(s), Acute, 05/02/2024, 1 cap(s) Oral every 12 hr,x7 days, Pharmacy: [facility], Urinary, uncomplicated UTI [Not filled] Capt Asia Pavon DO Family Medicine Faculty Physician [address] [place] [address], [facility]AI Extracted from:Title: FM - lab f/u Author: CANDY ESCALONA MD Date: 04/01/24 1. H TN - Hypertension Chronic, c ontrolled. Pt with BP within g oal range per J [place]-8 guidelineswith goal of < 140/90. No medication side effects or concerns of non-adherence. Currently on propranolol 80 BID - patient unsure why she was started on the medication initially BP control - no prior hx of afib or heart failure on heart surgery. Discussed pros and cons of continuing on beta duran vs other catetogy. As BP is currently well controlled and patient has used controlled will continue on current dose. Also, discussed needs to continue ASA - no obvious reason to need with no prior stroke or heart attack. Discussed pros/cons of chronic med - pt would like to continue. -Refill propranolol and ASA 2. F atigue Discussed initial fatigue labs - WNL. Will plan to complete eval/referral for Urogyn and GI (for chronic GERD) and consider further w/u after for fatigue if needed. Maj LUZ MARINA, [facility] Family Medicine, PGY-2 Orders: aspirin(aspirin 81 mg oral capsule), 1 cap(s), Oral, every 24 hr, # 90 cap(s), 2 total refill(s), Maintenance, 1 cap(s) Oral every 24 hr, Pharmacy: [facility] [Not filled] atorvastatin(atorvastatin 40 mg oral tablet), 1 tab(s), Oral, Daily, for cholesterol, # 90 tab(s), 2 total refill(s), Maintenance, 1 tab(s) Oral Daily,Instr:for cholesterol, Pharmacy: [facility] [Not filled] omeprazole(omeprazole 20 mg oral delayed release tablet), 1 tab(s), Oral, BID, before a meal, # 180 tab(s), 1 total refill(s), Maintenance, 1 tab(s) Oral BID,Instr:before a meal, Pharmacy: [facility] [Not filled] propranolol(propranolol 80 mg oral tablet), 1 tab(s), Oral, BID, # 180 tab(s), 2 total refill(s), Maintenance, 1 tab(s) Oral BID, Pharmacy: [facility] [Not filled] Addendum by DELON BAIN MD on April 15, 2024 17:02:26 CDT I was present and available in the family medicine clinic during the patient's appointment.? The case was discussed with me and I agree with the assessment and plan as documented. ? HLF Extracted from:Title: Office Clinic Note Author: CANDY ESCALONA MD Date: 01/23/24 1. W ell adult Preventative medicine visit with no emergent concerns. Recommendations listed below: ---- CARDIOVASCULAR RISK ASSESSMENT: -Hypertension screening: performed; BP a t goal p er J NC-8 g uidelines ---- VACCINES: - Advised annual flu vaccine - Advised COVID-19 vaccine ----- METABOLIC: - L ipid screening: D UE [_] One time screening, non-fasting (age 17-21) [_] H igh risk (HTN, smoking, DM, FHx) but normal screen before age 21: initiate screening at age 25 (men) and 35 (women): repeat q5yrs if below treatment threshold [_] N ormal screen before age 21 and no risk factors: initiate screening age 35 (men) and 45 (women); repeat q5yrs if below treatment threshold [_] D C screening at age 65 if have had multiple screenings with acceptable measures - D M screening: D UE [_] ADA recommendation for annual screening in adults with BMI > 25 with one or more?risk factor for T2DM ( HTN, HLD, h/o CVD, h/o PCOS, FMHx) o r age 35-70 with BMI >25 ---- CANCER SCREENING: -Mammogram - DUE - L kacie Cancer Screening: DUE [x_] age 50-80 a nd 20 pack-yr smoking hx p er USPSTF - C olon Cancer Screening: U TD [_] age > 4 5 per USPSTF ----- SUBSTANCE USE: Smoker - no interest in stopping ----- SEXUAL HEALTH: [x_] Hepatitis B (age > 1 8; recommendation for one-time s creening) [_x] H epatitis C (age 1 8-79; recommendation for one-time s creening) ----- DIETS: -Low fat: Discussed that low fat diets are considered one of the best strategies to lose or maintain weight. -Mediterranean: Discussed that the Mediterranean diet consists of a diet high in fruits, vegetables, whole grains, etc. Mediterranean diet has been associated with decreased incidence of stroke and CVD. Handout was provided on the Mediterranean diet for patient to review at home. ----- FOLLOW UP: - In 2 week after lab/image w/u Ordered: Hepatitis B/C Virus Panel CT Low Dose Lung Screening MG Mammo Theo Screening Bilateral 2. P ain in left foot Hx exam most c/w tendinopathy, less concern for bone spurs or fracture. Chronic 2 mo duration Plan: XR order placed Will refer to podiatry to Dr. Enriquez that patient is established Plan for home PT if XR negative F/u 6-8 wk if no improvement Ordered: XR Foot Weight Bearing 3+ Left Referral Request 2.0 - DoD 3. U rinary incontinence Hx of urinary incontinence, requiring referral to urogyn for further eval, hx of bladder sling. OBGyn eval recommended. -Referral placed Ordered: Referral Request 2.0 - DoD 4. E czema Clobetasol order refilled Ordered: clobetasol topical(clobetasol 0.05% topical cream), 1 appl(s), Topical, BID, PRN dry skin, Apply to eczema as needed, no longer than 2 weeks, # 30 g, 1 total refill(s), Acute, 1 appl(s) Topical BID,PRN:dry skin,Instr:Apply to eczema as needed, no longer than 2 weeks, Pharmacy: [facility] [Not fille 5. H TN - Hypertension On propranolol - controlled. - Maintenance Labs: RFP, ACR, A1C, Lipid Panel ordered - F/u in 2-3 weeks for work up follow up Ordered: Albumin, Random Ur [id number] Creatinine, Urine Microalbumin Panel, Urine 6. G ERD - Gastro-esophageal reflux disease Uncontrolled on omeprazole 20mg daily chronically. Concern for esophageal pathology, r/o cancer vs eosinophilic etiology -Refered to GI for possible upper GI scope -Will adjust medication pending w/u - may try increasing to 40mg daily Ordered: Comprehensive Metabolic Panel 7. F atigue Reported concern for fatigue, more tired with normal activities. No chest pain, arrythmias, or LU. Denies mental health concerns. -Basic w/u - CMP, CBC, ferritin, TSH, Maj LUZ MARINA, [employer], MD [employer] Family Medicine, PGY-2 Ordered: CBC w/ Diff Ferritin Iron and TIBC [id number] Thyroid Stimulating Hormone Addendum by TRAVIS DORSEY MD on January 25, 2024 12:27:41 CDT I was present and available in the Family Medicine Clinic to discuss this patient's care for the duration of the appointment. I agree with the residents assessment and plan as document with the following addendum: plan for change to guideline based HTN management at next visit. Travis Dorsey MD. Family Medicine Faculty. Future Scheduled TestsRadiologyCT Low Dose Lung Screening 04/21/25 05/08/2025 [id number] MEDGRP-[facility] Assessment and Plan Extracted from:Title : 60 yo Well/Recurrent UTIS/Med Refills Author: SUSAN ROSA DO Date: 04/10/25 1. W ell adult General Prevention: Colon Cancer Screening: ( 45/50-75 Q10 years) N ext Due in 2030 Lung Cancer screening: L ast _; DUE _ O rdered Substance use: Denies Weight: b riefly reviewed recommendations for active lifestyle and healthy diet Hep C Screen: UTD HIV Screen: Negative _ HgbA1C: Due Mammo (40-74 Q2 years)- Due, BIRADS 2 2023 - - BRCA: N o known personal or FHx of breast/ovarian/tubal/peritone al cancer or known familial gene mutations Pap: _ UTD Due in 2028 STI: L ow risk DEXA: _ U TD Osteopenia Immunizations: Flu Immunization: _ D ue Fall 2020 Pneumococcal Immunization: A ge 50/18-50 for diabete/high risk Zoster Immunization: _ UTD COVID-19: U TD Ordered: Comprehensive Metabolic Panel Hemoglobin A1c Lipid Panel MG Mammo Theo Screening Bilateral 2. N icotine dependence Encouraged smoking cessation Ordered CT Low Dose Lung Screening Ordered: CT Low Dose Lung Screening 3. A llergic rhinitis Chronic, Treated Plan: Refill Flonase 4. R ecurrent UTI - urinary tract infection Chronic, Treated History of kidney stones with recurrent UTIs. Follows with Urology. Last course of antibiotics was 2-3 weeks ago. Had UTI and was given Macrobid. Urine cx showed resistant to cefazolin but sensitive to Macrobid. Had rash on macrobid. UTI symptoms for t he past year and a half. Plan: POC UA ordered shows Nitrite Positive with Mod LE Urine Culture collected Levofloxacin 750 mg PO qd for 5 days Continue to Follow with Urology for Kidney stone removal Ordered: levoFLOXacin(levoFLOXacin 750 mg oral tablet), 1 tab(s), Oral, every 24 hr, X 5 days, # 5 tab(s), 0 total refill(s), Acute, 04/15/2025, Pharmacy: [facility], Urinary, complicated UTI/pyelonephritis [Not filled] Urinalysis with Microscopic and Culture if Indicated 5. E czema Chronic, Controlled Small 1cm diameter erythematous patches on LLE Plan: Refill Clobetasol Cream Explained risk of thinning skin and hypopigmentation to patient with overuse of medication. Patient voiced understanding 6. E ssential hypertension Chronic, Controlled Plan: Refill Propanolol Ordered: Creatinine, Urine Microalbumin Level, Urine 7. O besity Chronic, Treated Plan: Nutrition Referral Continue Exercise RTO in 3 months for possible pharmaceutical intervention Ordered: Referral Request 2.0 - DoD 8. V accination given Pneumovax given in office today. See Tech's Note. Orders: aspirin(aspirin 81 mg oral capsule), 1 cap(s), Oral, every 24 hr, # 90 cap(s), 2 total refill(s), Maintenance, Pharmacy: [facility] [Federal Rx: #90 last filled 04/10/25] atorvastatin(atorvastatin 40 mg oral tablet), 1 tab(s), Oral, Daily, for cholesterol, # 90 tab(s), 2 total refill(s), Maintenance, Pharmacy: [facility] [Federal Rx: #90 last filled 04/10/25] cholecalciferol(cholecalcifer ol 50 mcg (2000 intl units) oral capsule), 1 cap(s), Oral, Daily, # 90 cap(s), 3 total refill(s), Maintenance, Pharmacy: [facility] [Not filled] clobetasol topical(clobetasol 0.05% topical cream), 1 appl(s), Topical, BID, # 60 g, 1 total refill(s), Maintenance, Pharmacy: [facility] [Federal Rx: #60 last filled 04/10/25] fluticasone nasal(fluticasone 50 mcg/inh nasal spray), 100 mcg, Nostril-Both, Daily, # 48 g, 3 total refill(s), Maintenance, Pharmacy: [facility] [Federal Rx: #48 last filled 04/10/25] omeprazole(omeprazole 20 mg oral delayed release capsule), 1 cap(s), Oral, BID(AC), 30 to 60 minutes before meal, # 180 cap(s), 3 total refill(s), Maintenance, Pharmacy: [facility] [Federal Rx: #180 last filled 04/10/25] propranolol(propranolol 80 mg oral tablet), 1 tab(s), Oral, BID, # 180 tab(s), 2 total refill(s), Maintenance, Pharmacy: [facility] [Federal Rx: #180 last filled 04/10/25] Susan Rosa DO, [facility], [facility] Resident Provider Addendum by CRISTINO MONDRAGON MD, Family Medicine on April 10, 2025 16:19:05 CDT I certify that I was present for case discussion in the Family Medicine preceptor room at the time of this encounter. I have reviewed the note and agree with the findings, assessment, and plan except as I have documented below. Follow up as listed. All labs/imaging/consults to be followed by the ordering provider. Cristino Mondragon MD Extracted from:Title: 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 Office Clinic Note Author: ALEXSANDRA DICK NP, Women's Health Date: 11/29/24 1. O steopenia R renaewed T-score and Frax risk percentage. Osteopenia. Discussed recommended fall prevention measures, continue with adequate daily calcium and Vitamin D. Rpt in 3 to 5 yrs, sooner if changes in risk factors. Pt v/u and agrees. 2. N icotine dependence E ncouraged smoking cessation SALVADOR Cardoza, [facility] Women s Health Nurse Practitioner, Board Certified [address] [place] [address] [employer] [address] [place] [id number] comm: Extracted from:Title: FM- med refill Author: CANDY ESCALONA MD Date: 07/13/24 1. O ther disorders of bone density and structure I contacted the patient for medication refill - requesting Ca Carbonate 600mg and cholecalciferol 50mcg daily refilled. No concerns on the medications. Will follow at next well visit for hx of osteopenia. -Both meds refilled Maj RAZA [employer], MD [facility], PGY-3 Orders: calcium carbonate(calcium carbonate 1,500 mg (elemental Ca 600 mg) oral tab), 600 mg, Oral, Daily, # 90 tab(s), 3 total refill(s), Maintenance, 600 mg Oral Daily, Pharmacy: [facility] [Not filled] cholecalciferol(cholecalcifer ol 50 mcg (2000 intl units) oral capsule), 1 cap(s), Oral, Daily, # 90 cap(s), 3 total refill(s), Maintenance, 1 cap(s) Oral Daily, Pharmacy: [facility] [Not filled] Addendum by ASIA PAVON MD on July 14, 2024 12:52:20 CDT On the day of encounter, I was available for discussion with the resident physician. Case was discussed with me in the Teach Room. I agree with the assessment and plan of care as documented above with any exceptions/additions noted below if necessary. All labs/rads/consults to be followed by the ordering provider. DO Jacques Rhoades [employer], Family Medicine Physician Extracted from:Title: 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 Office Clinic Note Author: ALEXSANDRA DICK NP Date: 05/31/24 1. O ther abnormal uterine and vaginal bleeding Reviewed pelvic US results. Endometrial lining w/out focal thickening. 3mm thin. Possible atrophy if discharge is vaginally. Pt has been experiencing this small amt of ' constantino' colored discharge/fluid on her daily pad x 2 years. No active bleeding. She is uncertain the orgin of it , but doesn't believe it is from hemorrhoids. It may be possibly vaginally or urinary. Nml pelvic exam at last appt, with age-related vaginal atrophy. She has had two bladder slings and daily incontinence in which I just placed a referral for Urology at her last appt. I recommend pt see Urology. F/u after Urology if symptoms persist or prn new vaginal symptoms. Pt v/u and agrees. SALVADOR Cardoza, [facility] Women s Health Nurse Practitioner, Board Certified [address] [place] [address] [employer] [address] [place] [address] comm: Extracted from:Title: 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 Office Clinic Note Author: ALEXSANDRA DICK, SHEET METAL ROOFER Date: 05/22/24 1. E ncounter for gynecological examination (general) (routine) with abnormal findings Cervical Cancer Screening: Pap Smear and HPV testing c ollected today. If negative, pt may repeat in 5 years Breast Cancer Screening:. CBE n ormal today.. Discussed breast self-awareness. Mammogram u p to date. Pelvic exam: n ml speculum/pelvic exam Colon Cancer Screening: Initiate at age 45 for average risk patients. P atient is up to date on screening. Bone Health: Encouraged weight bearing exercises, adequate Calcium and Vitamin D, fall prevention measures. _ Immunizations: s tatus reviewed. Reproductive Life Planning: Is postmenopausal. Mental Health: P atient declined any MH needs today Age-appropriate Prevention Education: Discussed tobacco and alcohol use; healthy eating and exercise; preventive screening for chronic diseases. 2. E ncounter for screening for malignant neoplasm of cervix 3. O ther abnormal uterine and vaginal bleeding Pt wears daily pad. She reports some brown/dk red occasionally on her pad over the past 2 years. She is uncertain where it is coming from. Pelvic US ordered to eval endometrial lining. 4. U rinary incontinence Hx of Blader sling in 2004, and 2020. Continues to have incontinence. Needs U rology continuation. R eferral to Urology placed. 5. O ther disorders of bone density and structure Osteopenia. Due to repeat DXA. Referral placed. 6. O besity Reviewed BMI: B kevin Mass Index Measured: 32.04 kg/m2 (05/20/24 11:05:00) Encouraged a minimum of 150 minutes of moderate-intensity physical activity t o include?muscle strengthening activities weekly per the CDC. Discussed healthy dietary measures. 7. N icotine dependence Encouraged cessation. [facility] recommended Reviewed with patient discharge instructions. Written discharge instructions were provided to the patient. Recommended patient to follow up regularly for WWMelissa, s triciaoner as discussed above, or as needed for WH concerns, symptoms, or questions. Alexsandra Dick, [facility], [facility] Women s Health Nurse Practitioner, Board Certified [address] [place] [address] [employer] [address] [address] comm: Extracted from:Title: [facility]- UTI Author: ASIA PAVON MD Date: 04/25/24 1. U rinary tract infection Acute, unknown duration given presence of symptoms for months. No s/sx concerning for pyelonephritis or systemic infection at this time. - reviewed urine culture results (see mccauley results section). Susceptible to cephalosporins and confirmed that she does not have allergies to medications. - keflex 500mg q12h x7 days - strict return precautions discussed, follow up as needed Ordered: cephalexin(Keflex 500 mg oral capsule), 1 cap(s), Oral, every 12 hr, X 7 days, # 14 cap(s), 0 total refill(s), Acute, 05/02/2024, 1 cap(s) Oral every 12 hr,x7 days, Pharmacy: [facility], Urinary, uncomplicated UTI [Not filled] Capt Asia Pavon DO Family Medicine Faculty Physician [address] [place] [address], [facility] Extracted from:Title: FM - lab f/u Author: CANDY ESCALONA MD Date: 04/01/24 1. H TN - Hypertension Chronic, c ontrolled. Pt with BP within g oal range per J [place]-8 guidelineswith goal of < 140/90. No medication side effects or concerns of non-adherence. Currently on propranolol 80 BID - patient unsure why she was started on the medication initially BP control - no prior hx of afib or heart failure on heart surgery. Discussed pros and cons of continuing on beta duran vs other catetogy. As BP is currently well controlled and patient has used controlled will continue on current dose. Also, discussed needs to continue ASA - no obvious reason to need with no prior stroke or heart attack. Discussed pros/cons of chronic med - pt would like to continue. -Refill propranolol and ASA 2. F atigue Discussed initial fatigue labs - WNL. Will plan to complete eval/referral for Urogyn and GI (for chronic GERD) and consider further w/u after for fatigue if needed. CANDY ESCALONA, , [facility], MD [employer] Family Medicine, PGY-2 Orders: aspirin(aspirin 81 mg oral capsule), 1 cap(s), Oral, every 24 hr, # 90 cap(s), 2 total refill(s), Maintenance, 1 cap(s) Oral every 24 hr, Pharmacy: [facility] [Not filled] atorvastatin(atorvastatin 40 mg oral tablet), 1 tab(s), Oral, Daily, for cholesterol, # 90 tab(s), 2 total refill(s), Maintenance, 1 tab(s) Oral Daily,Instr:for cholesterol, Pharmacy: [facility] [Not filled] omeprazole(omeprazole 20 mg oral delayed release tablet), 1 tab(s), Oral, BID, before a meal, # 180 tab(s), 1 total refill(s), Maintenance, 1 tab(s) Oral BID,Instr:before a meal, Pharmacy: [facility] [Not filled] propranolol(propranolol 80 mg oral tablet), 1 tab(s), Oral, BID, # 180 tab(s), 2 total refill(s), Maintenance, 1 tab(s) Oral BID, Pharmacy: [facility] [Not filled] Addendum by DELON BAIN MD on April 15, 2024 17:02:26 CDT I was present and available in the family medicine clinic during the patient's appointment.? The case was discussed with me and I agree with the assessment and plan as documented. ? HLF Extracted from:Title: Office Clinic Note Author: CANDY ESCALONA MD Date: 01/23/24 1. W ell adult Preventative medicine visit with no emergent concerns. Recommendations listed below: ---- CARDIOVASCULAR RISK ASSESSMENT: -Hypertension screening: performed; BP a t goal p er J NC-8 g uidelines ---- VACCINES: - Advised annual flu vaccine - Advised COVID-19 vaccine ----- METABOLIC: - L ipid screening: D UE [_] One time screening, non-fasting (age 17-21) [_] H igh risk (HTN, smoking, DM, FHx) but normal screen before age 21: initiate screening at age 25 (men) and 35 (women): repeat q5yrs if below treatment threshold [_] N ormal screen before age 21 and no risk factors: initiate screening age 35 (men) and 45 (women); repeat q5yrs if below treatment threshold [_] D C screening at age 65 if have had multiple screenings with acceptable measures - D M screening: D UE [_] ADA recommendation for annual screening in adults with BMI > 25 with one or more?risk factor for T2DM ( HTN, HLD, h/o CVD, h/o PCOS, FMHx) o r age 35-70 with BMI >25 ---- CANCER SCREENING: -Mammogram - DUE - L kacie Cancer Screening: DUE [x_] age 50-80 a nd 20 pack-yr smoking hx p er USPSTF - C olon Cancer Screening: U TD [_] age > 4 5 per USPSTF ----- SUBSTANCE USE: Smoker - no interest in stopping ----- SEXUAL HEALTH: [x_] Hepatitis B (age > 1 8; recommendation for one-time s creening) [_x] H epatitis C (age 1 8-79; recommendation for one-time s creening) ----- DIETS: -Low fat: Discussed that low fat diets are considered one of the best strategies to lose or maintain weight. -Mediterranean: Discussed that the Mediterranean diet consists of a diet high in fruits, vegetables, whole grains, etc. Mediterranean diet has been associated with decreased incidence of stroke and CVD. Handout was provided on the Mediterranean diet for patient to review at home. ----- FOLLOW UP: - In 2 week after lab/image w/u Ordered: Hepatitis B/C Virus Panel CT Low Dose Lung Screening MG Mammo Theo Screening Bilateral 2. P ain in left foot Hx exam most c/w tendinopathy, less concern for bone spurs or fracture. Chronic 2 mo duration Plan: XR order placed Will refer to podiatry to Dr. Enriquez that patient is established Plan for home PT if XR negative F/u 6-8 wk if no improvement Ordered: XR Foot Weight Bearing 3+ Left Referral Request 2.0 - DoD 3. U rinary incontinence Hx of urinary incontinence, requiring referral to urogyn for further eval, hx of bladder sling. OBGyn eval recommended. -Referral placed Ordered: Referral Request 2.0 - DoD 4. E czema Clobetasol order refilled Ordered: clobetasol topical(clobetasol 0.05% topical cream), 1 appl(s), Topical, BID, PRN dry skin, Apply to eczema as needed, no longer than 2 weeks, # 30 g, 1 total refill(s), Acute, 1 appl(s) Topical BID,PRN:dry skin,Instr:Apply to eczema as needed, no longer than 2 weeks, Pharmacy: [facility] [Not fille 5. H TN - Hypertension On propranolol - controlled. - Maintenance Labs: RFP, ACR, A1C, Lipid Panel ordered - F/u in 2-3 weeks for work up follow up Ordered: Albumin, Random Ur [id number] Creatinine, Urine Microalbumin Panel, Urine 6. G ERD - Gastro-esophageal reflux disease Uncontrolled on omeprazole 20mg daily chronically. Concern for esophageal pathology, r/o cancer vs eosinophilic etiology -Refered to GI for possible upper GI scope -Will adjust medication pending w/u - may try increasing to 40mg daily Ordered: Comprehensive Metabolic Panel 7. F atigue Reported concern for fatigue, more tired with normal activities. No chest pain, arrythmias, or LU. Denies mental health concerns. -Basic w/u - CMP, CBC, ferritin, TSH, Maj LUZ MARINA, MD [facility] [employer] Family Medicine, PGY-2 Ordered: CBC w/ Diff Ferritin Iron and TIBC [id number] Thyroid Stimulating Hormone Addendum by TRAVIS DORSEY MD on January 25, 2024 12:27:41 CDT I was present and available in the Family Medicine Clinic to discuss this patient's care for the duration of the appointment. I agree with the residents assessment and plan as document with the following addendum: plan for change to guideline based HTN management at next visit. Travis Dorsey MD. Family Medicine Faculty. Future Scheduled TestsRadiologyCT Low Dose Lung Screening 04/21/25 05/08/2025 Unknown Organization Functional Status Combined list of recent functional and cognitive assessments recorded at [employer] and [employer] Affairs (VA).VA Functional [place] Measurement (FIM) Scale: 1 = Total Assistance (Subject = 0% +), 2 = Maximal Assistance (Subject = 25% +), 3 = Moderate Assistance (Subject = 50% +), 4 = Minimal Assistance (Subject = 75% +), 5 = Supervision, 6 = Modified [place] (Device), 7 = Complete [place] (Timely, Safely). Assessment Date/Time Source Assessment Type Assessment Skill Assessment Score Assessment Details No data available for this section
[2025-05-08 17:10] LABS: INR 0.9; Prothrombin Time 12.6 Seconds (11.1-14.7)
[2025-05-08 17:11] LABS: Partial Thromboplastin Time 25.2 Seconds (22.3-36.8)
== END 2025-05-08 16:44 | disposition home or self-care (01) ==
PROVIDERS: Visit Provider Urology
DX: N20.0 Calculus of kidney (principal)
CPT/HCPCS: 36415; 85610; 85730

== ENCOUNTER 2025-05-12 00:01 | Day surgery (SDC) | payer OTHER, SELFPAY ==
--- NOTE | 2025-04-20 09:16 | P.HP_ITS ---
History of Present Illness History of Present Illness Consent: Risks, benefits, and alternatives have been discussed and questions answered. Patient agrees to proceed with procedure. Chief complaint: Right Kidney Stone Narrative: Patricia Garcia is a 60 year old female who tolerated recent left ESWL for 10 mm left lower calyceal stone. ?The stone is still visible but much much less calcified suggesting that it has fractured into several small pieces. ?She has a residual 6 mm stone in her right kidney which she would like to treat with ESWL Review of Systems Review of Systems: All systems reviewed & are unremarkable except as noted in HPI and below PMFSH Social History Social History Years smoked: 50 Smoking status: Current every day smoker Tobacco type: cigarettes Alcohol intake: current Living arrangements: with family Spiritual care concerns: No Meds Home Medications and Allergies Home Medications ?Medication ?Instructions ?Recorded ?Confirmed ?Type aspirin 81 mg tablet,delayed 81 mg PO DAILY 03/01/25 03/01/25 History release atorvastatin 40 mg tablet 40 mg PO HS 03/01/25 03/01/25 History clobetasol 0.05 % topical cream 1 applic topical .bi weekly PRN 03/01/25 03/01/25 History rash cranberry 500 mg capsule 500 mg PO DAILY 03/01/25 03/01/25 History estradiol 0.01% (0.1 mg/gram) 1 appful vaginal .bi-weekly 03/01/25 03/01/25 History vaginal cream modafinil 200 mg tablet 200 mg PO DAILY 03/01/25 03/01/25 History multivitamin-ferrous 1 tablet PO DAILY 03/01/25 03/01/25 History fumarate-folic acid 18 mg-400 mcg tablet (Centrum Women) omega 1-bwg-irq-fish oil 1,200 mg 1 cap PO DAILY 03/01/25 03/01/25 History (144 mg-216 mg) capsule (Fish Oil) omeprazole 20 mg capsule,delayed 20 mg PO DAILY 03/01/25 03/01/25 History release propranolol 80 mg tablet 80 mg PO DAILY 03/01/25 03/10/25 History vibegron 75 mg tablet (Gemtesa) 75 mg PO DAILY 03/01/25 03/01/25 History cetirizine 10 mg tablet (24Hour 10 mg PO DAILY 03/07/25 03/07/25 History Allergy) hydrocodone 5 mg-acetaminophen 325 1 - 2 tablet PO Q6H PRN pain #20 03/10/25 Rx mg tablet tabs Allergies Allergy/AdvReac Type Severity Reaction Status Date / Time nitrofurantoin Allergy Intermediate Rash Verified 03/10/25 06:40 Exam Const: General: no acute distress Resp: Effort & Inspection: normal respiratory effort GI: Inspection: non-distended GI Palp: No abdominal tenderness and No Guarding due to palpation present (GI) Auscultation: normal bowel sounds Assessment and Plan Assessment and plan (1) Bilateral kidney stones: Code(s): N20.0 - Calculus of kidney Status: Acute Assessment and Plan: * Right ESWL
[2025-05-05 15:01] VITALS: BMI 32.6
--- NOTE | 2025-05-05 15:02 | PC.NURSE ---
Report to the Outpatient Waiting Room, entrance under the green pavilion located off [facility], at time _0600_ on date _24-10-2338_. Planned Procedure Time: _0730_.? Time changes happen often and if your time is changed the preop area will call you the afternoon before. - You and your visitor will be asked to self-screen and do not enter if you have any COVID symptoms. Please call surgeon if you need to reschedule. - A mask is optional within the hospital at this time. Patients may have clear liquids (water, carbonated beverages, clear teas, apple juice) until 3 hours prior to surgery with a maximum of 20 ounces. - No food from midnight until time of surgery and no smoking, or chewing tobacco (or any form of nicotine). No chewing gum, candy or mints. Take only the following medications with a SIP of water on the morning of surgery: ___Propanolol____ DO NOT STOP ANY OF YOUR OTHER PRESCRIPTION MEDICATIONS PRIOR TO SURGERY EXCEPT THE FOLLOWING Hold all vitamins and supplements for 3 days per anesthesiologist. Medications to discontinue per physician Date to take last tdpt__[phone]___ Please no make-up, nail danish, hairspray, perfume, deodorant, or body powder the day of surgery.? No jewelry (including any body piercings) or valuables the day of surgery, leave them at home.? Please take a shower or bath the night before, or the morning of, surgery with an antibacterial soap.? Wear comfortable, loose fitting clothing.? - Jewelry must be removed prior to entering the operating room.? Rings and piercings that are not removed may be cut off. - The hospital will not accept responsibility for valuables.? - Please leave all valuables, including medications, at home the day of surgery. If you are going home after surgery, a licensed driver courier must drive you home.? - NO public transportation without another adult if you receive anesthesia. - We recommend that an adult stay with you for 24 hours following discharge. - We also recommend that you do not drive, make important decision, drink alcoholic beverages, or take any drugs that were not prescribed by your health care provider for at least 24 hours after your discharge time. Follow any additional instructions given to you from your surgeon. Telephone instructions given to __Mona__and asked if any additional questions and then verbalized understanding. Patient advised to call surgeon office or pre surgery nurse liaison [phone] if any additional questions.
--- NOTE | ~2025-05-12 | XR_ITS ---
XR abdomen/kub 1V 05/12/2025 06:14 INDICATION: Previous tibia TECHNIQUE: KUB COMPARISON: None FINDINGS: Bowel gas pattern is normal. There is no evidence of free air, mass, organomegaly, ascites or obstruction. There are bilateral renal stones, largest on the left in the lower pole measuring 1. 2 cm. There are pelvic phleboliths. The bones appear intact. IMPRESSION: 1: Bilateral nephrolithiasis. Reviewed, dictated and finalized at location B.
--- OUTSIDE RECORDS SUMMARY | 2025-05-12 00:04 | XMS_ITS | Clinical Summary ---
Author Organization [facility] [employer] Address [address] [place] [address] Care Team Providers Care Detective Investigator Name Role Phone [address] Primary Care Prov ider Source Comments [facility] [employer],non-owned Affiliates and Associated Physician Practices is amultiple site organization consisting of ambulatory clinics and hospital sitesin [place], [place], [place] and [place]. This disclosure is being madepursuant to the Care Everywhere program and may not contain all information available regarding this patient. Last updated 18.[facility] [employer] Allergies No known active allergies Medications * [...] Relation Name Comments Hypertension Mother Cancer Other [place] Other Relation Name Status Comments Mother Other [...] on file Legal Sex Female 2:04 PM BAROMETERS CALIBRATOR Gender Identity Not on file Sexual Orientation Not on file Last Filed Vital Signs Vital Sign Reading Time Taken Comments Blood Pressure 114/62 09/02/2012 12:56 PM BAROMETERS CALIBRATOR Pulse 89 09/02/2012 12:56 PM BAROMETERS CALIBRATOR Temperature 36.9 C (98.4 F) 09/02/2012 12:56 PM BAROMETERS CALIBRATOR Respiratory Rate 20 09/02/2012 12:56 PM BAROMETERS CALIBRATOR Oxygen Saturation 97% 09/02/2012 12:56 PM BAROMETERS CALIBRATOR Inhaled Oxygen Concentration - - Weight 83.9 kg (185 lb) 09/01/2012 7:20 AM BAROMETERS CALIBRATOR Height 170.2 cm (5' 7) 09/01/2012 7:20 AM BAROMETERS CALIBRATOR Body Mass Index 28.98 09/01/2012 7:20 AM BAROMETERS CALIBRATOR Plan of Treatment Health Maintenance Due Date [...] 8:35 AM 09/01/2012 11:54 AM Care Teams Detective Investigator Relationship Specialty Start Date End Date [facility] [address] [place], [place] [address] PCP - General 09/27/19
--- OUTSIDE RECORDS SUMMARY | 2025-05-12 00:05 | XMS_ITS | Encounter Summary ---
Author Organization [facility] Address [address] [place] [address] Care Team Providers Care Ream Cutter Name Role Phone Radha Callaway Primary Care Provider [phone] None, Provider Primary Care Provider Harley Thrasher MD Primary Care Provider [phone] Encounter Details Date Type Department Care Team (Late st Contact Info) Description 09/18/2020 Prep for Procedure [facility] [place] [address] Mo Wooten MD [address] [id number] Social History Tobacco Use Types Packs/Day Years Used Date Smoking Tobacco: Every Day Cigarettes Smokeless Tobacco: Never Alcohol Use Standard Drinks/Week Comments Not Currently 0 (1 standard drink = 0.6 oz pur e alcohol) 3 times year Comments Unknown Sex and Gender Information Value Date Recorded Sex Assigned at Female 11/09/2024 10:20 AM DROP TESTER Legal Sex Female 4:33 PM CDT Gender Identity Not on file Sexual Orientation Not on file COVID-19 Exposure Response Date Recorded In the last month, have you been in contact with someone who was confirmed or suspected to have Coronavirus / COVID-19? Yes 09/18/2020 8:30 AM DROP TESTER documented as of this encounter Plan of Treatment Not on file documented as of this encounter Visit Diagnoses Diagnosis Hematochezia- Primary Blood in stool documented in this encounter Additional Health Concerns Infection Onset Date Last Indicated Resolved Time COVID-19 Rule Out 09/23/2020 09/23/2020 09/24/2020 11:56 AM DROP TESTER COVID-19 Rule Out 11/23/2020 11/23/2020 11/24/2020 4:31 PM DROP TESTER COVID-19 Rule Out 07/09/2021 07/09/2021 07/10/2021 11:47 AM CDT COVID-19 Rule Out 05/27/2023 05/27/2023 05/28/2023 7:24 AM CDT COVID-19 Rule Out 11/24/2023 11/24/2023 11/24/2023 6:55 PM DROP TESTER COVID-19 Rule Out 01/17/2024 01/17/2024 01/17/2024 4:46 PM CDT COVID-19 Rule Out 02/16/2024 02/16/2024 02/16/2024 3:01 PM CDT COVID-19 Rule Out 11/09/2024 11/09/2024 11/09/2024 11:14 AM DROP TESTER documented as of this encounter Care Teams Ream Cutter Relationship Specialty Start Date End Date Radha Callaway PA [facility] [address] [place] [address] PCP - General PHYSICIAN MARINE FISHERIES TECHNICIAN 11/15/20 05/26/23 None, ProviderMD PCP - General UNKNOWN PHYSICIAN SPECIALTY 05/27/23 02/15/24 Harley Campos MD [address] [address] PCP - General FAMILY PRACTICE 02/16/24 documented as of this encounter
--- OUTSIDE RECORDS SUMMARY | 2025-05-12 00:05 | XMS_ITS | Encounter Summary ---
Author Organization [facility] Address [address] [place] [address] Care Team Providers Care Recreational Programs Director Name Role Phone Radha Callaway Primary Care Provider [phone] None, Provider Primary Care Provider Harley Thrasher MD Primary Care Provider [phone] Encounter Details Date Type Department Care Team (Late st Contact Info) Description 11/15/2020 Prep for Procedure [place] [facility] [place], [place] [id number] Giselle Maddox MD [address] [place] [address] [place] [address] Social History Tobacco Use Types Packs/Day Years Used Date Smoking Tobacco: Every Day Cigarettes 0.5 40 Smokeless Tobacco: Never Alcohol Use Standard Drinks/Week Comments Not Currently 0 (1 standard drink = 0.6 oz pur e alcohol) 3 times year Comments No Sex and Gender Information Value Date Recorded Sex Assigned at Female 11/09/2024 10:20 AM TRIM MACHINE ADJUSTER Legal Sex Female 4:33 PM CDT Gender Identity Not on file Sexual Orientation Not on file COVID-19 Exposure Response Date Recorded In the last month, have you been in contact with someone who was confirmed or suspected to have Coronavirus / COVID-19? No / Unsure 11/15/2020 3:07 PM TRIM MACHINE ADJUSTER documented as of this encounter Plan of Treatment Not on file documented as of this encounter Results * PRE-SURGICAL/PRE-PROCEDURE CORONAVIRUS (COVID 19) (11/23/2020 10:30 AM TRIM MACHINE ADJUSTER) CORONAVIRUS SARS COV 2 PCR (RESP) NOT DETECTED NOT DETECTED 11/24/2020 4:31 PM TRIM MACHINE ADJUSTER [email or web address] Comment: A Not Detected (negative) test [...] providers and patients using the following websites: https://www.[employer]ribaLearning/home/Covid-19/HCP/NAAT/fact-sheet2 https://www.[employer]Learning/home/Covid-19/Patients/NAAT/ fact-sheet2 This test has been authorized by the FDA under an Emergency Use Authorization (EUA) for use by authorized laboratories. Due to the current public health emergency, [facility] is receiving a high volume of samples [...] about COVID-19 can be found at the [employer] website: www.[employer].TribaLearning/Covid19. Test performed at [email or web address] [address] [place] [address] Director: RHYS GARCIA DO,MPH FIRST TEST NO 11/23/2020 12:43 PM TRIM MACHINE ADJUSTER [facility] EMPLOYED IN HEALTHCARE NO 11/23/2020 12:43 PM TRIM MACHINE ADJUSTER [facility] SYMPTOMATIC DEFINED BY CDC NO 11/23/2020 12:43 PM TRIM MACHINE ADJUSTER [facility] DATE OF SYMPTOM ONSET UNKNOWN 11/23/2020 1:15 PM TRIM MACHINE ADJUSTER [facility] HOSPITALIZATION STATUS NO 11/23/2020 12:43 PM TRIM MACHINE ADJUSTER [facility] PATIENT IN ICU NO 11/23/2020 12:43 PM TRIM MACHINE ADJUSTER [facility] RESIDENT OF [facility] NO 11/23/2020 12:43 PM TRIM MACHINE ADJUSTER [facility] NOT 11/23/2020 12:43 PM TRIM MACHINE ADJUSTER [facility] PATIENT'S RACE WHITE OR 11/23/2020 12:43 PM TRIM MACHINE ADJUSTER [facility] ETHNICITY NONHISPANIC 11/23/2020 12:43 PM TRIM MACHINE ADJUSTER [facility] SOURCE (QST) NASOPHARYNGEAL SWAB 11/23/2020 12:43 PM TRIM MACHINE ADJUSTER [facility] NASOPHARYNGEAL SWAB / Unknown 11/23/2020 10:30 AM TRIM MACHINE ADJUSTER us Giselle Maddox MD MICROBIOLOGY - GENERAL ORDERABLE S Final Result [facility] [address] [place] [address], [email or web address] [facility] [address] [place] [address], documented in this encounter Visit Diagnoses Diagnosis Preop examination- Primary Preoperative examination, unspecified documented in this encounter Additional Health Concerns Infection Onset Date Last Indicated Resolved Time COVID-19 Rule Out 11/23/2020 11/23/2020 11/24/2020 4:31 PM TRIM MACHINE ADJUSTER COVID-19 Rule Out 07/09/2021 07/09/2021 07/10/2021 11:47 AM CDT COVID-19 Rule Out 05/27/2023 05/27/2023 05/28/2023 7:24 AM CDT COVID-19 Rule Out 11/24/2023 11/24/2023 11/24/2023 6:55 PM TRIM MACHINE ADJUSTER COVID-19 Rule Out 01/17/2024 01/17/2024 01/17/2024 4:46 PM CDT COVID-19 Rule Out 02/16/2024 02/16/2024 02/16/2024 3:01 PM CDT COVID-19 Rule Out 11/09/2024 11/09/2024 11/09/2024 11:14 AM TRIM MACHINE ADJUSTER documented as of this encounter Care Teams Recreational Programs Director Relationship Specialty Start Date End Date Radha Callaway PA [facility] [address] [place] [address] PCP - General PHYSICIAN FIRST CALENDER WORKER 11/15/20 05/26/23 None, ProviderMD PCP - General UNKNOWN PHYSICIAN SPECIALTY 05/27/23 02/15/24 Harley Campos MD [address] [id number] PCP - General FAMILY PRACTICE 02/16/24 documented as of this encounter
--- OUTSIDE RECORDS SUMMARY | 2025-05-12 00:05 | XMS_ITS | Continuity of Care Document ---
Author Organization [facility] Address [address] [place] [address] [place] [address] Phone Care Team Providers Care Railroad Car Painter Name Role Phone Zeeshan Earl PA-C Unavailable [...] Copied on Encounter OFFICE/OUTPAT IENT VISIT, EST [facility], [address] [place], [place], [id number], [place] tel:[phone] [facility] cold symptoms (chief complaint) Suspected exposure to other viral communicable diseaseSinusitis 1 [address]ady [address]ers. [address] [place] [address], [address], [place]. tel:[phone] Referring Provider: Zeeshan Earl, [address] [place] [address], [address]. tel:[phone] OFFICE/OUTPAT IENT VISIT, [facility], [address] [place] [address], [id number], tel:[phone] [facility] Encounter for screening for other viral diseases 0 Mady Byers. [address] [place] [address], [address], [place]. tel:[phone] Referring Provider: Zeeshan Earl, [address] [place] [address], [address]. tel:[phone] OFFICE/OUTPAT IENT VISIT, [facility], [address] [place] [address], [id number], [place] tel:[phone] [facility] covid exposure (chief complaint) Encounter for screening for other viral disease 0 Mady Byers. [address] [place] [address], [address], [place]. tel:[phone] Referring Provider: Zeeshan Earl, [address] [place] [address], [address]. tel:[phone] Family History Family Member Type Diagnosis Age At Onset No Information Payers Payer name Insurance type Covered republican ID Alonso lakhani(sAyse Sorensen [facility] [place] [id number] CI [id number] Social History Type Description Quantity Date Captured [...] day quarantine. Testing is optional, pt can workers compensation consultant, can start quarantine period and test if [...] Mental Status Date Cognitive Assessment Orientation - [place] ed to time, place, person, situation. Patient Care Teams Name Effective Dates (start - stop) Status Members No Information
--- OUTSIDE RECORDS SUMMARY | 2025-05-12 00:05 | XMS_ITS | Patient Health Record ---
Author Organization [facility] Address [address] [place], [place] [id number] Care Team Providers Care Slice Plug Cutter Operator Helper Name Role Phone MAHOGANY AGGARWAL Unavailable [phone] Sharmaine Campos Unavailable Unavailable Allergies No Known Allergies Reason For Referral Reason REFERRAL ( E STABLISHED VISITS ) 04/20/2025 [employer] REFERRALS ARE NO LONGER VALID OF APRIL 24, 2025 PER [facility]. KLL Diagnosis 1 Plantar fascial fibr omatosis (M72.2) Referred Organization [facility] Referred Provider MAHOGANY AGGARWAL Referred Address [address],[place], [id number], Referred Provider Specialty Podiatry Referral Priority Routine [...] [facility] [address] [place], [place] [phone] 05/18/2024 MAHOGANY SNOOK Plantar fascial fibromatosis M72.2 ; Calcaneal spur, left foot M77.32 and Left foot pain M79.672 [facility] [address] [place], [place] [id number] 06/08/2024 MAHOGANY SNOOK Plantar fascial fibromatosis M72.2 ; Calcaneal spur, left foot M77.32 and Left foot pain M79.672 [facility] [address] [place], [place] [phone] 08/02/2024 MAHOGANY SNOOK Plantar fascial fibromatosis M72.2 ; Calcaneal spur, left foot M77.32 and Left foot pain M79.672 [facility] [address] [place], [place] [phone] 08/23/2024 MAHOGANY SNOOK Plantar fascial fibromatosis M72.2 ; Calcaneal spur, left foot M77.32 and Left foot pain M79.672 [facility] [address] [place], [place] [phone] 08/29/2024 MAHOGANY SNOOK Assessments Encounter Date Diagnosis [...] Insured Coverage Start Date Coverage End Date [facility] [address] [place] [address] [id number] SHARMAINE [place] Spouse - patient is the spouse of the insured Medical (General) History Medical History History ICD Code acid reflux kidney stones hepatitis hemorrhoids eczema psoriasis hypersomnolence urinary incontinence
--- OUTSIDE RECORDS SUMMARY | 2025-05-12 00:05 | XMS_ITS | Clinical Summary ---
Author Organization [facility] Address [facility] [place] [address] Care Team Providers Care Bottle Filler Name Role Phone Harley Campos MD Primary Care Provider [phone] Allergies No known active allergies Medications modafinil [...] CDT - 03/07/2025 7:30 AM CDT Emergency [facility] [place] [address] Laurel Schroeder MD Auer, Charles E, MD Skin Problem Discharge Disposition: Home or Self Care (Routine Discharge) 03/07/2025 Travel 03/04/2025 Results Follow-Up [facility] [address] [place] [address] Sandra Purdy MD CULTURE URINE 03/01/2025 2:48 PM CDT - 03/01/2025 3:20 PM CDT Hospital Encounter [facility] [place] [address] Dominga Cee DO Urinary Symptoms; Sinus Problem [...] Sex Assigned at Female 11/09/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 Sex Female 4:33 PM CDT Gender [...] METABOLIC PANEL (03/07/2025 5:20 AM CDT) [facility] GLUCOSE 110(H) 70 - 99 MG/DL 03/07/2025 6:13 AM CDT [facility] BUN 19(H) 7 - 18 MG/DL 03/07/2025 6:13 AM CDT [facility] CREATININE S/P/B 0.62 0.55 - 1.02 MG/DL 03/07/2025 6:13 AM CDT [facility] SODIUM S/P/B 138 136 - 145 MMOL/L 03/07/2025 6:13 AM CDT [facility] POTASSIUM S/P/B 3.8 3.5 - 5.1 MMOL/L 03/07/2025 6:13 AM CDT [facility] CHLORIDE S/P/B 110 97 - 115 MMOL/L 03/07/2025 6:13 AM CDT [facility] CO2 21.4 21 - 32 MMOL/L 03/07/2025 6:13 AM CDT [facility] CALCIUM S/P/B 9.9 8.5 - 10.1 MG/DL 03/07/2025 6:13 AM CDT [facility] BILIRUBIN TOTAL S/P/B 0.4 0.2 - 1.2 MG/DL 03/07/2025 6:13 AM CDT [facility] Comment: THIS ASSAY IS NOT RECOMMENDED FOR PATIENTS UNDERGOING TREATMENT WITH ELTROMBOPAG DUE TO THE POTENTIAL FOR FALSELY ELEVATED RESULTS. TOTAL PROTEIN S/P/B 7.5 6.4 - 8.2 G/DL 03/07/2025 6:13 AM CDT [facility] ALBUMIN S/P/B 3.6 3.4 - 5.0 G/DL 03/07/2025 6:13 AM CDT [facility] AST 26 15 - 37 U/L 03/07/2025 6:13 AM CDT [facility] ALT 39 14 - 55 U/L 03/07/2025 6:13 AM CDT [facility] ALKALINE PHOSPHATASE S/P/B 95 50 - 136 U/L 03/07/2025 6:13 AM T [facility] ANION GAP 6.6 2 - 10 MMOL/L 03/07/2025 6:13 AM T [facility] BUN CREATININE RATIO 30.8(H) 6 - 26 03/07/2025 6:13 AM T [facility] A/G RATIO 0.9(L) 1.0 - 2.0 RATIO 03/07/2025 6:13 AM T [facility] GFR ESTIMATE >90 >90 ML/MIN/1.7 3 M2 03/07/2025 6:13 AM T [facility] Comment: NOTE: eGFR is not [...] Laurel Schroeder MD LABORATORY Final Resul t [facility] [address] [place] [address], [place] [phone] * (ABNORMAL) CBC W/DIFF AUTOMATED (03/07/2025 5:20 AM CDT) [facility] Signature WBC 5.55 4.5 - 11.0 x10'3/uL 03/07/2025 5:52 AM CDT [facility] RBC 5.10 4.20 - 5.40 x10'6/uL 03/07/2025 5:52 AM CDT [facility] HGB 15.1 12.0 - 16.0 G/DL 03/07/2025 5:52 AM CDT [facility] HCT 46.3 38.0 - 48.0 % 03/07/2025 5:52 AM CDT [facility] MCV 90.8 81.0 - 99.0 FL 03/07/2025 5:52 AM CDT [facility] MCH 29.6 27.0 - 31.0 PG 03/07/2025 5:52 AM CDT [facility] MCHC 32.6 32.0 - 36.0 G/DL 03/07/2025 5:52 AM CDT [facility] RDW 13.0 11.5 - 14.5 % 03/07/2025 5:52 AM CDT [facility] PLT 233 130 - 400 x10'3/uL 03/07/2025 5:52 AM CDT [facility] MPV 11.1 9.3 - 12.2 FL 03/07/2025 5:52 AM CDT [facility] DIFFERENTIAL TYPE AUTOMATED DIFFERENTIAL 03/07/2025 5:52 AM CDT [facility] NEUTROPHILS % 63.2 % 03/07/2025 5:52 AM CDT [facility] LYMPHOCYTES % 31.7 % 03/07/2025 5:52 AM CDT [facility] MONOCYTES % 3.6 % 03/07/2025 5:52 AM CDT [facility] EOSINOPHILS 0.9 % 03/07/2025 5:52 AM CDT [facility] BASOPHILS 0.2 % 03/07/2025 5:52 AM CDT [facility] IMMATURE GRANS % 0.4 % 03/07/20 5:52 AM CDT [facility] ABS. NEUTROPHILS 3.51 1.80 - 7.70 x10'3/uL 03/07/2025 5:52 AM CDT [facility] ABS. LYMPHOCYTES 1.76 1.00 - 4.80 x10'3/uL 03/07/2025 5:52 AM CDT [facility] ABS. MONOCYTES 0.20(L) 0.24 - 0.86 x10'3/uL 03/07/2025 5:52 AM CDT [facility] ABS. EOSINOPHILS 0.05 0.04 - 0.36 x10'3/uL 03/07/2025 5:52 AM CDT [facility] ABS. BASOPHILS 0.01 0.01 - 0.08 x10'3/uL 03/07/2025 5:52 AM CDT [facility] ABS. IMMATURE GRANULOCYTES 0.02 0.00 - 0.49 x10'3/uL 03/07/2025 5:52 AM CDT [facility] 03/07/2025 5:20 AM CDT us Laurel Schroeder MD LABORATORY Final Resul t [facility] [address] [place] [address], * (ABNORMAL) CULTURE URINE (03/01/2025 3:00 PM CDT) SPEC DESCRIPTION URINE CLEAN CATCH 03/01/2025 3:[address] [facility] SPECIAL REQUESTS NO SPECIAL REQUEST 03/01/2025 3:[address] [facility] CULTURE RESULT 50,000-100, 000 COL/ML ENTEROBACTE R CLOACAE COMPLEX (A) 03/04/2025 7:42 AM CDT [facility] URINE SPECIMEN OBTAINED BY CLEAN [...] MICROBIOLOGY - GENERAL ORDERA BLES Final Result [facility] [address] [place] [address], [place] [phone] [facility] [place] [address], [place] * (ABNORMAL) URINALYSIS AUTO DIP (03/01/2025 3:00 PM CDT) SPECIMEN TYPE URINE CLEAN CATCH 03/01/2025 3:[address] [facility] COLOR (U) YELLOW 03/01/2025 3:[address] [facility] TRANSPARENCY CLOUDY 03/01/2025 3:[address] [facility] SPECIFIC GRAVITY (U) 1.025 1.001 - 1.030 03/01/2025 3:[address] [facility] U PH 5.5 5.0 - 9.0 03/01/2025 3:[address] [facility] LEUKOCYTES (U) MODERATE(A) NEGATIVE 3:[address] [facility] NITRITES POSITIVE(A) NEGATIVE 03/01/2025 3:[address] [facility] PROTEIN RANDOM (U) 100(H) <30 MG/DL 03/01/2025 3:[address] [facility] GLUCOSE (U) NEGATIVE NEGATIVE MG/DL 03/01/2025 3:[address] [facility] KETONES MG/DL (U) NEGATIVE NEGATIVE MG/DL 03/01/2025 3:[address] [facility] UROBILINOGEN 0.2(A) NEGATIVE MG/DL 03/01/2025 3:[address] [facility] BILIRUBIN (U) NEGATIVE NEGATIVE MG/DL 03/01/2025 3:[address] [facility] BLOOD (U) MODERATE(A) NEGATIVE 03/01/2025 3:[address] [facility] URINE SPECIMEN OBTAINED BY CLEAN CATCH PROCEDURE / Unknown 03/01/2025 3:00 PM CDT us Dominga Cee DO URINE ORDERABLES Final Result [facility] [address] [place] [address], * STREP A RAPID (03/01/2025 3:00 PM CDT) SPECIMEN TYPE THROAT 03/01/2025 3:03 PM CDT [facility] RAPID STREP TEST NEGATIVE NEGATIVE 03/01/2025 3:12 PM CDT [facility] STRUCTURE OF ANTERIOR PORTION OF NECK / Unknown 03/01/2025 3:00 PM CDT us Dominga Cee DO MICROBIOLOGY - GENERAL ORDERA BLES Final Result Performing Organization Address [facility] Co de Phone Number [facility] [address] [place], [place] [address], from Last [address] [place] [address] [place] [address] Care Teams Bottle Filler Relationship Specialty Start Date End Date Harley Campos MD [address] [phone] PCP - General FAMILY PRACTICE 02/16/24
--- OUTSIDE RECORDS SUMMARY | 2025-05-12 00:06 | XMS_ITS | Clinical Summary ---
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 60 Tablet 11 09/21/2023 12:43 PM VOCATIONAL SERVICES SPECIALIST 3 Active ondansetron (ZOFRAN ODT) 4 mg [...] daily. 90 Tablet 1 11/11/2024 3:22 PM VOCATIONAL SERVICES SPECIALIST 4 Active trimethoprim (TRIMPEX) 100 mg tablet Take 1 Tablet (100 mg) by mouth at bedtime. 90 Tablet 08/12/2024 3:18 PM CDT 4 Active modafiniL (PROVIGIL) 200 mg Tablet Take 2 tablets (400 mg total) by mouth every morning 60 Tablet 5 05/10/2025 4:00 PM CDT 5 Active trimethoprim (TRIMPEX) 100 [...] (1 - 1-dose 75+ series) 01/05/2039 Insurance [place] [id number] [employer]
--- OUTSIDE RECORDS SUMMARY | 2025-05-12 00:07 | XMS_ITS | Continuity of Care Document ---
Author Name [facility] Organization [facility] Care Team Providers Care Bioinformatics Programmer Name Role Phone [facility] Unavailable Unavailable Problems Combined list of problems [...] Condition 0055C-375t h [facility] Eczema Active Condition 3044O-El-X-375 Th [facility] Essential hypertension Active Condition 0055C-375th [facility] Fatigue Active Condition 0352Q-Nf-L-375 Th [facility] Female stress incontinence Active Condition 0055C-375th [facility] Fibrocystic disease of breast Active Condition 0055C-3 75th [facility] GERD - Gastro-esophageal reflux disease Active Condition 6130C-Af-C -375 Th [facility] HTN - Hypertension Active Condition 0086K-Np-V-3 75 Th [facility] Hypothyroidism Active Condition 0055C-3 [...] C-Af-C-375 Th MedHiral Urinary incontinence Active Condition 7973C-Hp-D-3 75 Th [facility] Well adult Active Condition [...] HEADACHE SYNDROMES Active Condition DoD visit for: [employer] physical chcf Active Condition DoD Mammogram Screening Inactive Condition [...] STRESS INCONTINENCE Active Condition DoD visit for: [employer] Sit[employer] flight physical Active Condition DoD Patient Education [...] 90 cap(s), 2 total refill(s ), Maintena iae, Pharmacy : [facility] Oral (given by mouth) Ordered 5 2024 90.0 6130C-A f-C-[facility] 81 mg oral capsule cap(s), Oral, every 24 hr, 0 total refill(s ), Maintena nce Oral (given by mouth) Discont inued 04/11/20242023 6130C-A f-C-375 Th [facility] [place] aspirin 81 mg oral capsule 1 cap(s), Oral, every 24 hr, # 90 cap(s), 2 total refill(s ), Maintena iae, Pharmacy : [facility] Oral (given by mouth) Discont inued 04/10/2025 4 2024 90.0 6130C-A f-C-375 Th [facility] [place] ASPIRIN EC (U/D) 81 MG ORAL TBEC Take with food/mil Pancho martins whole. 04/11/2025 [id number] 2023 90 [facility] ([facility] aspirin EC 81 mg tablet See Instruct [...] total refill(s ), Maintena nce, Pharmacy : [facility] Oral (given by mouth) Discont inued 07/13/2024 4 2023 90.0 6130C-A f-C-375 Th [facility] [place] calcium carbonate 1,500 mg (elemental Ca 600 mg) oral tab 600 mg, Oral, Daily, # 90 tab(s), 3 total refill(s ), [facility], Pharmacy : [facility] Oral (given by mouth) Ordered 2023 90.0 6130C-A f-C-375 Th [facility] cholecalcif alexandria 125 mcg (5,000 units) capsule See Instruct ions, # 90 EA, 3 total refill(s ), Acute Complet ed 03/17/2024 4 2023 90.0 Ambulat ory Pharmac y cholecalcif alexandria 50 mcg (2000 intl units) oral capsule 1 cap(s), Oral, Daily, # 90 cap(s), 3 total refill(s ), [facility], [facility] : [facility] Oral (given by mouth) Ordered 2024 90.0 6130C-A f-C-375 Th [facility] [place] cholecalcif alexandria 50 mcg (2000 intl units) oral capsule 1 cap(s), Oral, Daily, # 90 cap(s), 3 total refill(s ), [facility] Oral (given by mouth) Discont inued 07/13/20242023 90.0 6130C-A f-C-375 Th [facility] [place] cholecalcif alexandria 50 mcg (2000 intl units) oral capsule 1 cap(s), Oral, Daily, # 90 cap(s), 3 total refill(s ), [facility] Oral (given by mouth) Discont inued 04/10/20252024 90.0 6130C-A f-C-375 Th [facility] cholecalcif alexandria 50 mcg (2000 intl units) oral capsule 1 cap(s), Oral, Daily, # 90 cap(s), 3 total refill(s ), Maintena iae, Pharmacy : [facility] Oral (given by mouth) Discont inued 07/13/20242023 90.0 6130C-A f-C-375 Th [facility] cholecalcif alexandria 50 mcg (2000 intl units) oral capsule 1 cap(s), Oral, Daily, # 90 cap(s), 0 total refill(s ), Maintena nce Oral (given by mouth) Discont inued 04/18/20242023 90.0 6130C-A f-C-375 Th [facility] CLOBETASOL 0.05% CREAM/CEREV E CREAM 1:1- For external use. 01/22/2025 [id number] [address] [place] [address] Danilo DESAI ([facility] clobetasol 0.05% topical cream 1 appl(s), Topical, [...] directed .Obtain advice for OTCs.Jack lindsay. 04/11/2025 [id number] 4 [address] [place] [address] Danilo DESAI ([facility]) Fish Oil oral capsule 1 cap(s), Oral, [...] total refill(s ), Maintena nce, Pharmacy : [facility] Nostri l-Both (into the nose) Ordered [...] 16 mL, 3 total refill(s ), Maintena iae, Pharmacy : [facility] Nostri l-Both (into the nose) Discont inued 04/10/20252024 16.0 6130C-A f-C-375 Th [facility] Keflex 500 mg oral capsule 1 cap(s), Oral, every 12 hr, X 7 days, # 14 cap(s), 0 total refill(s ), Acute, 05/02/24 12:28:00 PM CDT, Pharmacy : [facility] , Urinary, uncompli cated UTI Oral (given by mouth) Complet ed 05/02/2024 4 2023 14.0 6130C-A f-C-375 Th [facility] levoFLOXaci n 750 mg oral tablet 1 tab(s), Oral, every 24 hr, X 5 days, # 5 tab(s), 0 total refill(s ), Acute, 04/15/25 9:05:00 AM CDT, Pharmacy : [facility] , Urinary, complica janee UTI/pyel onephrit is Oral (given by mouth) Complet ed 04/15/2025 5 2024 5.0 6130C-A f-C-375 Th [facility] Macrobid 100 mg oral capsule 1 cap(s), Oral, BID, X 5 days, # 10 cap(s), 0 total refill(s ), Acute, 05/27/24 1:31:00 PM CDT, Pharmacy : [facility] , Urinary, uncompli cated UTI Oral (given by mouth) Complet ed 05/27/2024 4 2023 10.0 0055C-3 75th [facility] miconazole 2% vaginal cream with applicator 1 appl(s), Vaginal, every day at bedtime, # 45 g, 0 total refill(s ), Acute, Pharmacy : [facility] Vagina l (in the vagina ) Discont inued 11/29/20242024 45.0 0055C-3 75th [facility] modafinil 200 mg oral tablet 2 tab(s), Oral, every morning, # 180 tab(s), 0 total refill(s ), Maintena iae, Pharmacy : [facility] Oral (given by mouth) Ordered 3 2022 180.0 6130C-A -C-375 Th [facility] modafinil 200 mg tablet 200 mg, TAKE ONE TABLET BY MOUTH EVERY DAY, Oral, Daily, # 90 EA, 1 total refill(s ), Acute Oral (given by mouth) Complet ed 09/15/2023 3 2022 90.0 Ambulat ory Pharmac y multivitami n adult, oral tablet Oral, Daily, 0 total refill(s ), Maintena nce Oral (given by mouth) Ordered 2023 0055C-3 75th [facility] omeprazole 20 mg oral delayed release capsule 1 cap(s), Oral, BID(AC), 30 to 60 minutes before meal, # 180 cap(s), 3 total refill(s ), Maintena iae, Pharmacy : [facility] Oral (given by mouth) Ordered 5 2024 180.0 6130C-A -C-375 Th [facility] [place] omeprazole 20 mg oral delayed release [...] total refill(s ), Maintena nce, Pharmacy : [facility] Oral (given by mouth) Discont inued 04/10/2025 4 2024 180.0 6130C-A f-C-375 Th [facility] [place] omeprazole DR 20 mg capsule See Instruct ions, # 90 EA, 3 total refill(s ), Acute Complet ed 03/17/2024 4 2023 90.0 Ambulat ory Pharmac y ONDANSETRON ODT (ONDANSETRO N), 4MG, TAB RAPDIS, ORAL, Kelan PHARMA, 30 ea. BLIST PACK Active [id number] 2023 20 Pharmac y [employer] y PROPRANOLOL 80 MG ORAL TAB Be careful if taking OTCs.Gurwinder e or use exactly as directed .May cause drowsine ss/dizzi ness. 04/11/2025 [id number] 4 2023 180 [facility] ([facility]) propranolol 80 mg oral tablet 1 tab(s), [...] total refill(s ), Maintena nce, Pharmacy : [facility] Oral (given by mouth) Discont inued [...] Known Allergies Drug allergy (disorder) active 8 [facility] Immunizations Combined list of available immunizations from the 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 Immunization Series Date Given Administered By Site Reaction Lot Number CVX Code Drug Generation Engineer Status Comments Source pneumococcal 20-valent conjugate vaccine 2024 DAVID ELLIOTT Shoul simon, left (delt oid) [id number] Pfizer Inc complet ed pneumococ kenny 20-valent conjugate vaccine 04/10/25 Given 6130C-A f-C-375 Th [facility] zoster vaccine, inactivated 2020 zzLef t Arm [id number] GlaxoSmithKli ne complet ed zoster vaccine, inactivat ed 05/30/21 Given Ambulat ory Pharmac y zoster vaccine recombinant 1 2020 Unknown, Provider [id number] [facility] (SKB) complet ed zoster vaccine recombina nt [facility] typhoid Vi capsular polysaccharid e vac 2020 zzLef t Arm [id number] 101 sanofi pasteur complet ed typhoid Vi capsular polysacch aride vac 03/29/21 Given Ambulat ory Pharmac y Mexican Encephalitis IM 2020 zzRig ht Arm [id number] 134 Valneva complet ed Mexican Encephali tis IM 03/29/21 Given Ambulat ory Pharmac y zoster vaccine, inactivated 2020 zzLef t Arm [id number] 187 [employer] Company[employer]mi[employer] ne complet ed zoster vaccine, inactivat ed 03/29/21 Given Ambulat ory Pharmac y anthrax vaccine 2020 zzLef t Arm [id number] 24 Emergent [employer] complet ed anthrax vaccine 03/29/21 Given Ambulat ory Pharmac y anthrax vaccine 4 2020 Unknown, Provider [id number] [employer] [place] (MIP) complet ed anthrax vaccine DoD typhoid Vi capsular polysaccharid e vaccine 1 2020 Unknown, Provider [id number] Sanofi Pasteur (PMC) complet ed typhoid Vi capsular polysacch aride vaccine DoD Mexican Encephalitis vaccine for intramuscular administratio n 1 2020 Unknown, Provider [id number] 134 Valneva ([place]) complet ed Mexican Encephali tis vaccine for intramusc ular administr ation DoD zoster vaccine recombinant 1 2020 Unknown, Provider [id number] [employer] ([place]) complet ed zoster vaccine recombina nt DoD COVID Vaccine Moderna 2020 zzLef t Arm [id number] complet ed COVID Vaccine Moderna 02/07/21 Given Ambulat ory Pharmac y SARS-COV-2 (COVID-19) vaccine, mRNA, spike protein, LNP, preservative free, 100 mcg or 50 mcg dose 2 2020 Unknown, Provider [id number] 207 Moderna [employer] (MOD) complet ed SARS-COV- 2 (COVID-19 ) vaccine, mRNA, spike protein, LNP, preservat diandra free, 100 mcg or 50 mcg dose DoD COVID Vaccine Moderna 2020 zzLef t Arm [id number] complet ed COVID Vaccine Moderna 01/10/21 Given Ambulat ory Pharmac y SARS-COV-2 (COVID-19) vaccine, mRNA, spike protein, LNP, preservative free, 100 mcg or 50 mcg dose 1 2020 Unknown, Provider [id number] 207 [employer]. (MOD) complet ed SARS-COV- 2 (COVID-19 ) vaccine, mRNA, spike protein, LNP, preservat diandra free, 100 mcg or 50 mcg dose DoD tetanus-dipht h toxoids (Td) adult/adol 2018 [facility] Arm [id number] 09 sanofi pasteur complet ed tetanus-d iphth toxoids (Td) adult/ado l 10/04/19 Given Ambulat ory Pharmac y influenza, injectable, quadrivalent- pf 2018 [facility] Arm [id number] 150 Seqirus complet ed influenza , injectabl e, quadrival ent-pf 10/04/19 Given Ambulat ory Pharmac y tetanus and diphtheria toxoids, adsorbed, preservative free, for adult use (2 Lf of tetanus toxoid and 2 Lf of diphtheria toxoid) 3 2018 Unknown, Provider [id number] 09 Sanofi Pasteur (PMC) complet ed tetanus and diphtheri a toxoids, adsorbed, preservat diandra free, for adult use (2 Lf of tetanus toxoid and 2 Lf of diphtheri a toxoid) DoD Influenza, injectable, quadrivalent, preservative free 16 2018 Unknown, Provider [id number] 150 Seqirus (SEQ) complet ed Influenza [...] polysaccharid e, 23 valent 2011 DAVID ELLIOTT [id number] complet ed Result Comment: Manufactu rer: Merck Co 6130C-A f-C-375 [facility] influenza virus vaccine, live 2011 [id number] Medimmune Inc comple t ed influenza virus vaccine, live 07/30/12 Given Ambulat ory Pharmac y influenza virus vaccine, live, attenuated, for intranasal use 15 2011 Unknown, Provider [id number] MedIune, Inc. (MED) complet ed influenza virus vaccine, live, attenuate d, for intranasa l use DoD influenza virus vaccine, live 2010 [id number] 111 Medimmune Inc comple t ed influenza virus vaccine, live 09/04/11 Given Ambulat ory Pharmac y influenza virus vaccine, live, attenuated, for intranasal use 14 2010 Unknown, Provider [id number] 111 MedImmune, Inc. (MED) complet ed influenza virus vaccine, live, attenuate d, for intranasa l use DoD Novel influenza-H1N 1-09, injectable 2009 zzLef t Arm [id number] 127 Novartis Pharmaceutica complet ed Novel influenza -Y1K4-29, injectabl e 11/02/09 Given Ambulat ory Pharmac y Novel influenza-H1N 1-09, injectable 1 2009 Unknown, Provider [id number] 127 Novartis Pharmaceutica l Madeleine. (NOV) complet ed Novel influenza -Y4T1-61, injectabl e DoD influenza virus vaccine, live 2008 [id number] 111 Mediune Inc complet ed influenza virus vaccine, live 08/14/09 Given Ambulat ory Pharmac y influenza virus vaccine, live, attenuated, for intranasal use 1 2008 Unknown, Provider [id number] 111 MedImmune, Inc. (MED) complet ed influenza virus vaccine, live, attenuate d, for intranasa l use DoD influenza virus vaccine, live 2007 [id number] 111 Medimmune Inc comple t ed influenza virus vaccine, live 08/04/08 Given Ambulat ory Pharmac y influenza virus vaccine, live, attenuated, for intranasal use 1 2007 [id number] 111 MedImmune, Inc. (MED) complet ed influenza [...] DoD tetanus, diphtheria, acellular pertu is 2006 [id number] 115 sanofi pasteur complet ed tetanus, diphtheri a, acellular pertussis 02/16/07 Given Ambulat ory Pharmac y tetanus toxoid, reduced diphtheria toxoid, and acellular pertu is vaccine, adsorbed 1 2006 [id number] 115 Sanofi Pasteur (PMC) complet ed tetanus toxoid, reduced diphtheri a toxoid, and acellular pertussis vaccine, adsorbed DoD influenza virus vaccine,split 2005 [id number] 15 sanofi pasteur complet ed influenza virus vaccine,s plit 09/08/06 Given Ambulat ory Pharmac y influenza virus vaccine, split virus (incl. purified surface antigen)-reti red CODE 1 2005 [id number] 15 Sanofi Pasteur (PMC) complet ed influenza virus vaccine, split virus (incl. purified surface antigen)- retired CODE DoD influenza virus vaccine,split 2004 [id number] 15 sanofi pasteur complet ed influenza virus vaccine,s plit 09/08/05 Given Ambulat ory Pharmac y influenza virus vaccine, split virus (incl. purified surface antigen)-reti red CODE 1 2004 [id number] 15 Sanofi Pasteur ([facility]) complet ed influenza virus vaccine, split virus (incl. purified surface antigen)- retired CODE [facility] influenza virus vaccine, whole virus 2004 [id number] 16 sanofi pasteur complet ed influenza virus vaccine, whole virus 12/11/04 Given Ambulat ory Pharmac y influenza virus vaccine, whole virus 0 2004 [id number] 16 Sanofi Pasteur ([facility]) complet ed influenza virus vaccine, whole virus DoD tuberculin purified protein derivative 2003 Katie sanabria Arm [id number] 96 Unknown complet ed Patient Tolerance : Negative Ambulat ory Pharmac y tuberculin skin test; purified protein derivative solution, intradermal 1 2003 Unknown, Provider [id number] Other (OTH) complet ed tuberculi n skin test; purified protein derivativ e solution, intraderm al DoD anthrax vaccine 2003 [id number] [employer] complet ed anthrax vaccine 08/09/04 Given Ambulat ory Pharmac y anthrax vaccine 4 2003 [id number] 24 [employer] [place] ([facility] complet ed anthrax vaccine DoD anthrax vaccine 2003 [id number] [employer] complet ed anthrax vaccine 12/25/03 Given Ambulat ory Pharmac y anthrax vaccine 3 2003 [id number] 24 [employer] [place] ([facility]) complet ed anthrax vaccine DoD anthrax vaccine 2003 [id number] 24 [employer] complet ed anthrax vaccine 12/05/03 Given Ambulat ory Pharmac y anthrax vaccine 2 2003 [id number] 24 [employer] [place] ([facility]) complet ed anthrax vaccine DoD vaccinia (smallpox) vaccine 0 2003 75 () Not Given vaccinia (smallpox ) vaccine DoD meningococcal polysaccharid e (MPSV4) 2003 [id number] 32 [employer] complet ed meningoco ccal polysacch aride (MPSV4) 11/21/03 Given Ambulat ory Pharmac y anthrax vaccine 2003 [id number] 24 [employer] complet ed anthrax vaccine 11/21/03 Given Ambulat ory Pharmac y typhoid Vi capsular polysaccharid e vac 2003 [id number] 101 sanofi pasteur complet ed typhoid Vi capsular polysacch aride vac 11/21/03 Given Ambulat ory Pharmac y anthrax vaccine 1 2003 [id number] 24 Emergent Bio[employer]ense [facility] ([facility]) complet ed anthrax vaccine DoD meningococcal polysaccharid e vaccine (MPSV4) 0 2003 [id number] 32 [place] (CON) complet ed meningoco ccal polysacch aride vaccine (MPSV4) DoD typhoid Vi capsular polysaccharid e vaccine 0 2003 [id number] 101 Sanofi Pasteur (PMC) complet ed typhoid Vi capsular polysacch aride vaccine DoD influenza virus vaccine, whole virus 2002 [id number] 16 [facility] complet ed influenza virus vaccine, whole virus 08/30/03 Given Ambulat ory Pharmac y influenza virus vaccine, whole virus 0 2002 [id number] 16 [facility] ([facility]) complet ed influenza virus vaccine, whole virus DoD influenza virus vaccine, whole virus 2001 [id number] 16 [employer] complet ed influenza virus vaccine, whole virus 09/06/02 Given Ambulat ory Pharmac y influenza virus vaccine, whole virus 0 2001 [id number] 16 Miguel AngelMarc ([facility]) complet ed influenza virus vaccine, whole virus DoD influenza virus vaccine, whole virus 2000 [id number] 16 sanofi pasteur complet ed influenza virus vaccine, whole virus 09/14/01 Given Ambulat ory Pharmac y influenza virus vaccine, whole virus 0 2000 [id number] 16 Sanofi Pasteur ([facility]) complet ed influenza virus vaccine, whole virus DoD tuberculin purified protein derivative 2000 zzLef t Arm [id number] 96 [facility] complet ed Patient Tolerance : Negative Ambulat ory Pharmac y tuberculin skin test; purified protein derivative solution, intradermal 1 2000 Unknown, Provider [id number] 96 [facility] ([facility]) complet ed tuberculi n skin test; purified protein derivativ e solution, intraderm al DoD influenza virus vaccine, whole virus 1999 [id number] 16 [employer] complet ed influenza virus vaccine, whole virus 10/05/00 Given Ambulat ory Pharmac y influenza virus vaccine, whole virus 0 1999 [id number] 16 [place] ([facility]) complet ed influenza virus vaccine, whole virus DoD influenza virus vaccine, whole virus 1998 [id number] 16 [facility] complet ed influenza virus vaccine, whole virus 08/29/99 Given Ambulat ory Pharmac y influenza virus vaccine, whole virus 0 1998 [id number] 16 [facility] ([facility]) complet ed influenza virus vaccine, whole virus DoD tuberculin purified protein derivative 1998 zzLef t Arm 96 complet ed Patient Tolerance : Negative Ambulat ory Pharmac y tuberculin skin test; purified protein derivative solution, intradermal 1 1998 Unknown, Provider 96 () complet ed tuberculi n skin test; purified protein derivativ e solution, intraderm al DoD influenza virus vaccine, whole virus [id number] 16 [employer] complet ed influenza virus vaccine, whole virus 08/23/98 Given Ambulat ory Pharmac y influenza virus vaccine, whole virus 0 [id number] 16 [facility] complet ed influenza virus vaccine, whole virus DoD typhoid vaccine, live, oral 1997 [id number] 25 [employer] [place] complet ed typhoid vaccine, live, oral 01/03/98 Given Ambulat ory Pharmac y typhoid vaccine, live, oral 0 1997 [id number] 25 [employer] ([place]) complet ed [...] adult dosage DoD typhoid, parenteral, AKD 1996 [id number] 53 [place] [employer] [place] complet ed typhoid, parentera l, AKD 01/26/97 Given Ambulat ory Pharmac y hepatitis A adult vaccine 1996 52 complet ed hepatitis A adult vaccine 01/26/97 Given Ambulat ory Pharmac y yellow fever vaccine 1996 [id number] 37 [place] [employer] [place] complet ed yellow fever vaccine 01/26/97 Given [...] toxoid) DoD yellow fever vaccine 0 1996 [id number] 37 [employer] ([place]) complet ed yellow fever vaccine DoD hepatitis A vaccine, adult dosage 1 1996 52 () complet ed hepatitis A vaccine, adult dosage DoD typhoid vaccine, parenteral, acetone-alexsander d, dried ([place].S. ) 1 1996 [id number] 53 [employer] (SI) complet ed [...] th MEDGRP-Sc mykel Urinalys is UA Spec Rose 1.020 1.001 - 1.035 04/10 N 0055A-375 [...] - 1.0.. 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 [id number] Cytology Gynecolo gic Report Patient: Patricia Garcia Specimen #: [id number] DOD ID:: [id number] [id number] Taken: 4 12:38 /Age: 2 4 [...] Due to cytologi c findings at the Return To Factory Clerk microsco pe or selectio n of the case for QC, comprehe nsive manual re-scree jean by a cytotech nologist was required . Elect ronicall y Signed by Narinder Aleman Clinical Diagnosi s and History repeat in 5 yr sif cotest neg Prior History Signed Out Specimen # Interpre tation 10/12/20 19 [id number] Negative for Intraepi thlial Lesion or Malignan cy 01/01/20 13 [id number] UNSATISF ACTORY RETURN TO FACTORY CLERK 02/08/20 10 [id number] NEGATIVE 03/14/20 08 [id number] NEGATIVE 12/22/19 07 [id number] ENDOCERV ICAL COMPONEN T SEEN CPT Codes: A; 41564 The Pap test is a screenin g test for precurso rs of squamous cell carcinom a with an irreduci ble false negative rate of around 5%. It is not designed to detect glandula r lesions. A negative test does not ensure that no disease is present. 05/20 0055C-375 th [facility] AP Specimen s HPV Genotype 16 Negative [...] the U. S. Food and Drug Administrat [employer]. This modified vaginal specimen HPV test is [...] process or methodology contact Molecular Department at [phone] or [phone]. Unknown Organizat ion AP Specimen s HPV [...] and its performance characteris tics determined by [facility], [facility]. Vaginal source has not been cleared or approved by the U. S. Food and Drug Administrat [employer]. This modified vaginal specimen HPV test is [...] process or methodology contact Molecular Department at [phone] or [phone]. Unknown [facility] AP Specimen s HPV Genotype 18 Negative [...] and its performance characteris tics determined by [employer], [facility]. Vaginal source has not been cleared or approved by the U. S. Food and Drug Administrat [employer]. This modified vaginal specimen HPV test is [...] process or methodology contact Molecular Department at [phone] kh [phone]. Unknown Organizat ion Urinalys is UA Bacteria [...] 0055A375 MEDGRP-Sc mykel Urinalys is UA Spec Rose 1.020 1.001 - 1.035 05/20 N 0055A375 [...] -375 MEDGRP-Sc mykel Urinalys is UA Spec Rose 1.020 1.001 - 1.035 04/11 N -375 [...] proper notificatio n. Testing performed by electrochem iluminBOARDZcen ce. 5600A-[place] FSAM EPILAB Immunolo gy/Serol ogy [...] . Testing performed by electrochem iluminescen ce. [place] [employer] TerroirsAGet-n-Post FSAM EPILAB Immunolo gy/Serol ogy Hep B [...] performed by electrochem iluminescen ce immunoassay . [employer] Ter[employer]irs[employer]-Post FSAM EPILAB Chemistr y Ferritin Lvl 172.00 ng/mL 13.00 - 150.00 02/04 H Interpretiv e Data: METHODOLOGY : Testing performed by electrochem iluminescen t immunoassay (ECLIA). Terres et TerroirsAGet-n-Post FSAM EPILAB Chemistr y Ur Creat 96 [...] recommended . - MEDGRP-Sc mykel Hematolo gy Yolo Absolute 0.3 x10^3/mc L 0.2 - 0.8103 [...] % 0.0 - 2.5 02/04 N MEDGRP-Sc mykel Hematolo gy Lymphocyte % Auto 23.7 % [...] pediatric populations . Testing performed by electrochem iluminAlta Analogn ce immunoassay . [employer]deavor FSAM EPILAB Chemistr y eGFR CKD EPI [...] decrease 15-29 Severe decrease <15 Kidney failure [facility] Vital Signs Combined list of inpatient and outpatient Vital Signs from Department of Defense and Veterans Affairs, ranging from 12 months to all on record, depending upon the facility. Vital Sign Value Date Comments Source Systolic Blood Pressure 123 mm[Hg] 04/10/2025 12:59:00 6090W-Jg-E-[facility] Diastolic Blood Pressure 71 mm[Hg] 04/10/2025 12:59:00 5715B-Qq-Z-[facility] Blood Pressure Manual Automatic 04/10/2025 12:59:00 4089R-Ar-X-[facility] BP Site Right arm 04/10/2025 12:59:00 6130C -Af-C-[facility] Temperature Oral 36.9 Marina 04/10/2025 12:59:00 0125W-Sn-W-[facility] Respiratory Rate 16 br/min 04/10/2025 12:59:00 9636T-Xm-L-[facility] Peripheral Pulse Rate 78 bpm 04/10/2025 12:59:00 5953G-Vn-Q-[facility] Mean Arterial Pressure, Calc 88 mm[Hg] 04/10/2025 12:59:00 4792D-Tk-A-3 [facility]Th [facility] Mean Arterial Pressure, Calc 102 mm[Hg] 04/01/2024 19:13:00 2041W-Wn-Z-3 [facility] Peripheral Pulse Rate 74 bpm 04/01/2024 19:13:00 7320C-Ra-B-[facility] Respiratory Rate 14 br/min 04/01/2024 19:13:00 5396H-Dm-O-[facility] Systolic Blood Pressure 131 mm[Hg] 04/01/2024 19:13:00 3033Y-Gq-X-[facility] Diastolic Blood Pressure 88 mm[Hg] 04/01/2024 19:13:00 0236Y-Ef-M-[facility] BP Site Left arm 04/01/2024 19:13:00 6130C -Af-C-[facility] Blood Pressure Manual Automatic 04/01/2024 19:13:00 5372H-Jr-M-[facility] Systolic Blood Pressure 136 mm[Hg] 05/20/2024 16:05:00 0055C-375th [facility] Diastolic Blood Pressure 89 mm[Hg] 05/20/2024 16:05:00 0055C-375th [facility] Respiratory Rate 16 br/min 05/20/2024 16:05:00 0055C-375th [facility] Peripheral Pulse Rate 78 bpm 05/20/2024 16:05:00 0055C-375th [facility] Mean Arterial Pressure, Calc 105 mm[Hg] 05/20/2024 16:05:00 0055C-375th [facility] Blood Pressure Manual Automatic 01/21/2024 20:07:00 1030L-Bn-N-[facility]Th [facility] Peripheral Pulse Rate 73 bpm 01/21/2024 20:07:00 1699G-Ed-T-375[facility] Systolic Blood Pressure 125 mm[Hg] 01/21/2024 20:07:00 5973R-Bo-K-375[facility] Diastolic Blood Pressure 75 mm[Hg] 01/21/2024 20:07:00 0659K-Op-N-[facility] Mean Arterial Pressure, Calc 92 mm[Hg] 01/21/2024 20:07:00 4798I-Yg-P-3 75Th [facility] Encounters Combined list of: 1) Encounters from Department of Veterans Affairs facilities going backup to the last 18 months, not all VA inpatient encounters are included; 2) Encounters from the Department of Defense facilities going backup to 280 months. Location Location Details Encounter Type Encounter Number Reason For Visit Attending Provider ADM Date DC Date Status Disposition Source [facility] Family Health Cl Red) TELE CONSULT [id number] MISSED TUES APPT NEEDS REFERRA L FOR KORINA SAUCEDO 11/20 [facility]ly [facility] Family Health Cl Red) [facility] Family Health Cl Red) OUTPATIENT [id number] back pain x 3days RINA DURBIN 03/09 Released w/o Limitations [facility] Family Health Cl Red) [facility] Family Health Cl Red) OUTPATIENT [id number] muscle spasm RINA DURBIN 03/10 Released w/o Limitations [facility] Family Health Cl Red) [facility] Optometry ) OUTPATIENT [id number] annual check for glasses PRATEEK QUISPE 06/11 Released w/o Limitations [facility] Optomet ry) [facility] Family Health Cl Red) OUTPATIENT [id number] lump on leg SHELBY THOMAS 06/24 Released w/o Limitations [facility] Family [facility] Cl Red) [facility] Family [facility] Cl Red) OUTPATIENT [id number] eval on the previou s surgery GLENN CARRASCO T 12/08 Released w/o Limitations [facility] Family [facility] Cl Red) [facility] Cl [facility]) OUTPATIENT [id number] well woman GLENN CARRASCO T 12/15 Released w/o Limitations [facility] Family [facility] Cl Red) [facility] Cl [facility]) OUTPATIENT [id number] cough,c old GLENN CARRASCO T 03/29 Released w/o Limitations [facility] Family [facility] Cl Red) [facility] Family [facility] Cl Red) OUTPATIENT [id number] severe back pain GLENN CARRASCO T 05/21 Released w/o Limitations [facility] Family [facility] Cl Red) [facility]) OUTPATIENT [id number] SCAR REVISIO N FROM C-SECTI ON YOZULLY VELAZQUEZ II 05/27 Released w/o Limitations [facility] ) [facility] DIRECT TO [facility] FROM OTHER THAN ER OR APU [id number] ZULLY RAM II 11/22 RETURNED TO DUTY [facility] Nutrition Care) INPATIENT [id number] lipodys ulisseselijah LEXX TOVAR 11/23 Inpatient- Still a Patient [facility] Nutriti on Care) [facility]) OUTPATIENT [id number] post op ZULLY RAM II 11/30 Released w/o Limitations [facility] ) [facility] Family Health Cl Red) TELE CONSULT [id number] [place] Kristi 12/11 [facility] Family Health Cl Red) [facility] Family Health Cl Red) OUTPATIENT [id number] infecte SPENSER Oconnor 12/15 Released w/o Limitations [facility] Family Health Cl Red) [facility]) OUTPATIENT [id number] ONE-MON TH F/U YOZULLY VELAZQUEZ II 01/17 Released w/o Limitations [facility] ) [facility] Family Health Cl Red) OUTPATIENT [id number] DEVI LEARY 03/08 Released w/o Limitations [facility] Family Health Cl Red) [facility] Family Health Cl Red) OUTPATIENT [id number] well woman exam GLENN CARRASCO 03/09 Released w/o Limitations [facility] Family Health Cl Red) [facility]) OUTPATIENT [id number] f/u abdoman al surgery , 5 month ZULLY RAM II 04/11 Released w/o Limitations [facility] Surgery ) [facility] Optometry ) OUTPATIENT [id number] ROUT EXAM/GL PATRICIA L[address] 04/24 Released w/o Limitations [facility] Optomet ry) [facility]) OUTPATIENT [id number] colpo Stress inconti nence, cervica l neoplas m uncerta in behavio r need [employer] DORA HAMILTON 04/26 Released w/o Limitations [facility]) [facility] Urology) OUTPATIENT [id number] FEMALE STRESS INCONTI NENCE JAMES ALAN 05/10 Released w/o Limitations [facility] ) [facility]) OUTPATIENT [id number] JAMES ALAN 05/10 Released w/o Limitations [facility] ) [facility]) OUTPATIENT [id number] JAMES ALAN 05/25 Released w/o Limitations [facility] ) [facility]) OUTPATIENT [id number] pre-op transob turator sling JAMES ALAN 05/29 Released w/o Limitations [facility] ) [facility] DIRECT TO [facility] FROM OTHER THAN ER OR [facility]U [id number] JAMES ALAN 05/30 RETURNED TO DUTY [facility]) INPATIENT [id number] cystogr am JAMES ALAN 05/31 Inpatient- Discharged to Home/Self-ca re [facility] ) [facility]) OUTPATIENT [id number] post op follow up JAMES ALAN 06/12 Released w/o Limitations [facility] ) [address] [place] [address] [place] Non-GME FHI1) OUTPATIENT [id number] Medical Right Start KARLA BACK 07/10 Released w/o Limitations [address] [place] [address] Group [place]F amily Practic e Non-GME FHI1) [address] [place] [address] [place] [facility]Sco tt [facility] FAMRES Tm Blue) OUTPATIENT [id number] Rec Rev and AHLTA 2766 SELVIN BRASHER 08/22 Released w/o Limitations [address] [place] [address] Group [place] [facility]S cott [facility] FAM[facility] Tm Blue) [address] [place] [address] [place] [facility] Practice Non-GME FHI1) OUTPATIENT [id number] Tobacco Cessati on Intake MARK SMITH 09/18 Released w/o Limitations [address] [place] [address] [place] [facility] ([facility])(F amily Practic e Non-GME FHI1) [address] [place] [address] [place] [facility] ([facility])(Sco tt [facility] FAMRES Tm Blue) OUTPATIENT [id number] [phone] discuss previou s plastic surgery CHOSCOTT HERCULESJaz 10/02 Released w/o Limitations [address] [place] [address] Danilo SPARKSB ([facility])(S cott [facility] FAMRES Tm Blue) [address] [place] [address] [place] [facility] ([facility])(Sco tt [facility] FAMRES Tm Blue) OUTPATIENT [id number] tobacco follow- up SELVIN BRASHER 12/08 Released w/o Limitations [address] [place] [address] [place] [facility] ([facility]S cott [facility] FAMRES Tm Blue) [address] [place] [address] [place] [facility] ([facility])([facility]) OUTPATIENT [id number] [facility]/MOB EX MARIO ESTRELLA 01/09 Released w/o Limitations [address] [place] [address] [place] [facility] ([facility])(D [facility]) [address] [place] [address] [place] [facility] ([facility])(Sco tt [facility] FAMRES Tm Blue) OUTPATIENT [id number] f/u abdomin al surgery SELVIN BRASHER 02/14 Released w/o Limitations [address] [place] [address] [place] [facility] ([facility]S cott [facility] FAMRES Tm Blue) [address] [place] [address] [place] [facility] ([facility])(Opt ometry) OUTPATIENT [id number] eye exam - MARC VICTOR 02/26 Released w/o Limitations [address] [place] [address] [place] [facility] ([facility])(O ptometr y) [address] [place] [address] [place] [facility]Artie e Managemen t) TELE CONSULT [id number] LEO BARTHOLOMEW 03/[address] [place] [address] [place] [facility] ([facility])(C ase Managem ent) [address] [place] [address] [place] [facility] ([facility]) DENTAL [id number] Exam Only JAMES PEREZ 03/20 Released w/o Limitations [address] [place] [address] [place] [facility] ([facility]D ental Clinic) [address] [place] [address] [place] ([facility]) DENTAL [id number] Pros eval #4 JAMES PEREZ 03/22 Released w/o Limitations [employer] ([facility]D ental Clinic) [employer] ([facility])(Artie e Managemen t) TELE CONSULT [id number] LEO BARTHOLOMEW 03/26 [facility] [employer] ([facility])(C ase Managem ent) [facility] [employer] ([facility])([facility]) OUTPATIENT [id number] [facility]-A -PHA(8) MARK SMITH 04/03 Released w/o Limitations [employer] [place] SP[facility]KS[facility] ([facility]D [facility]) [facility] [employer] ([facility]) DENTAL [id number] Pros Prep #4 JAMES PEREZ R 04/09 Released w/o Limitations [employer] [place] SP[facility]KS[facility] ([facility]D ental Clinic) [facility] [employer] ([facility]) DENTAL [id number] Perio SHALONDA Melchor 04/25 Released w/o Limitations [employer] [place] [facility]KS[employer] ([facility]D ental Clinic) [facility] [place] CLAREB ([facility]) DENTAL [id number] perio maint-s MAXWELL Morris 05/14 Released w/o Limitations [facility] [place] [facility] ([facility]D ental Clinic) [facility] [employer] ([facility]) DENTAL [id number] #4 PFM insert JAMES PEREZ 05/21 Released w/o Limitations [employer] ([facility]D ental Clinic) [employer] ([facility]) DENTAL [id number] perio maint scrMAXWELL Sandy 05/22 Released w/o Limitations [employer] ([facility]D ental Clinic) [facility] [employer] ([facility])(Opt ometry) OUTPATIENT [id number] CRS Part 2 MARC VICTOR 05/22 Released w/o Limitations [employer] ([facility])(O ptometr y) [employer](Prk Surgery) OUTPATIENT [id number] Pre-op RINA ALEXANDER 06/22 Released w/o Limitations [employer](P rk Surgery ) [employer](Prk Surgery) OUTPATIENT [id number] ot info brief BANG CHATMAN 06/26 Released w/o Limitations [employer](P rk Surgery ) [employer](Prk Surgery) OUTPATIENT [id number] consent brief BANG CHATMAN 06/26 Released w/o Limitations [employer](P rk Surgery ) [facility] Group(Prk Surgery) OUTPATIENT [id number] final pre-op w/ surgeon BANG CHATMAN 06/26 Released w/o Limitations [employer](P rk Surgery ) [facility] Group(Prk Surgery) OUTPATIENT [id number] Surgery BANG CHATMAN 06/27 Sick at Home/Quarter s [facility] Group(P rk Surgery ) [facility](Prk Surgery) OUTPATIENT [id number] Post-op 1 day BANG CHATMAN 06/28 Sick at Home/Quarter s [facility](P rk Surgery ) [facility](Prk Surgery) OUTPATIENT [id number] Post-op 6 day RINA ALEXANDER 07/03 Released w/o Limitations [facility] Medical Group(P rk Surgery ) [facility] Medical [facility] [place] ([facility])(Opt ometry) OUTPATIENT [id number] 1 mo prk f/u ALY ARIZA 07/27 Released w/o Limitations [facility] [employer] [facility] [place] ([facility])(O ptometr y) [facility] Medical [facility] [place] ([facility])(Opt ometry) OUTPATIENT [id number] 2 month s/p PRK IOP check MARC VICTOR 09/04 Released w/o Limitations [facility] [place] ([facility])(O ptometr y) [facility] [place] ([facility])(Opt ometry) OUTPATIENT [id number] 3 mo prk f/u MARC VICTOR 10/09 Released w/o Limitations [facility] [place] ([facility])(O ptometr y) [facility] Medical [facility] [place] ([facility])(Sco tt [facility] FAM[facility] Tm Blue) OUTPATIENT [id number] painful left ankle hard to walk - [phone] FANNY FLORES 10/31 Released w/o Limitations [address] [place] [address] Danilo CLAREJudith ([facility]S cott [facility] FAM[facility] Tm Blue) [address] [place] [address] [place] CLAREJudith ([facility])(Sco tt [facility] FAMRES Tm Blue) OUTPATIENT [id number] severe headach es with menstru al cycle [phone] w [phone] c JIM ZAVALA 11/05 Released w/o Limitations [address] [place] [address] [place] CLAREJudith ([facility]S cott [facility] FAM[facility] Tm Blue) [address] [place] [address] Dan[place] CLAREJudith ([facility])(Sco tt [facility] FAM[facility] Tm Blue) OUTPATIENT [id number] irregul ar menstra l cycle [phone] RENE MONSALVE H. 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) OUTPATIENT [id number] METRORR GENTRY ROSA 01/18 Released w/o Limitations [address] [place] [address] Dan[place] ([facility])(G ynecolo gy) [address] [place] [address] Dan[place] [facility]) OUTPATIENT [id number] TCP initial - classro YOLI Duarte 01/24 Released w/o Limitations [address] [place] [address] [place] ([facility]I [facility]) [address] [place] [address] Danilo SPARKSB [facility]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) TELE CONSULT [id number] Discuss u/s results . GENTRY MARIE 01/[address] [place] [address] [place] SPARKSB ([facility])(O b/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) [address] [place] [address] Dan[place] [facility]Sco tt [facility] FAMRES Tm Blue) OUTPATIENT [id number] fu headach es [phone] FANNY FLORES 01/30 Released w/o Limitations [address] [place] [address] Danilo SPARKSB ([facility]S cott [facility] FAM[facility] Tm Blue) [address] [place] [address] Dan[place] DESIA ([facility])(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) OUTPATIENT [id number] ANNUAL SHEREEN NOVA S 02/04 Released w/o Limitations [employer] [place] CLAREB ([facility])(G ynecolo gy) [facility] [employer] ([facility])(Acu puncture) OUTPATIENT [id number] JORDAN LANGE Burak 02/06 Released w/o Limitations [employer] [place] [facility]ARE[facility] ([facility])(A cupunct ure) [facility] [place] CLARE[facility] ([facility])(C Pharm D Clinic) OUTPATIENT [id number] TCP followu p YOLI MARTINEZ 02/14 Released w/o Limitations [facility] [employer] [place] CLAREB ([facility])([facility]) [address] [place] [address] [place] CLAREB ([facility])(Sco tt [facility] FAM[facility] Tm Blue) OUTPATIENT [id number] Sleep disorde r [phone] STACY PAZ 02/28 Released w/o Limitations [employer] [place] CLARE[facility] ([facility])(S cott [facility] FAMRES Tm Blue) [facility] Medical [facility] [employer] ([facility])(Opt ometry) OUTPATIENT [id number] 12 mo prk f/u MARC VICTOR 07/12 Released w/o Limitations [address] [place] [address] Group [place] CLAREB ([facility])(O ptometr y) [address] [place] [address] [employer] ([facility])(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) TELE CONSULT [id number] e-mail about GENTRY Antonio 08/[address] [place] [address] Dan[place] CLAREB ([facility])(G ynecolo gy) [address] [place] [address] [employer] ([facility])(Sco tt [facility] FAMRES Tm Blue) TELE CONSULT [id number] needs routine appt for multipl e issues - [phone] CAD [facility] ANGUS EUGENE 03/26 [facility] [employer] ([facility]S cott [facility] FAM[facility] Tm Blue) [address] [place] [address] [employer] ([facility])([facility]co tt [facility] FAM[facility] Tm Blue) OUTPATIENT [id number] pt. request ELVIN JOHNSON 04/11 Released w/o Limitations [employer] ([facility]S cott [facility] FAM[facility] Tm Blue) [address] [place] [address] [place] DESAI ([facility])(Sco tt [facility] FAMRES Tm Blue) TELE CONSULT [id number] Pt needs referra burak - Bert - [phone] - tsg CELESTINE MENDOZA 05/23 [facility] [place] [facility] ([facility])(S cott [facility] FAM[facility] Tm Blue) [facility] Medical [facility] [place] SPARKSB ([facility])([facility] Pharm D Clinic) OUTPATIENT [id number] Smoking Cessati on ROSA, TJ S 09/08 Released w/o Limitations [facility] [place] ([facility]I [facility] Pharm [facility]) [facility] [place] SPARKSB ([facility])(Sco tt [facility] Fam Res Tm Green) OUTPATIENT [id number] Pain in breast [phone] ALEXA HERNANDEZ 09/16 Released w/o Limitations [facility] [place] [employer]KS[facility] ([facility])(S [facility] Fam Res Tm Green) [facility] [place] SPARKSB ([facility])([facility] Pharm D Clinic) OUTPATIENT [id number] Smoking Cessati on ROSA, TJ S 09/22 Released w/o Limitations [facility] [place] ([facility])(I [facility] Pharm [facility]) [facility] [place] SPARKSB ([facility])([facility] Pharm D Clinic) OUTPATIENT [id number] Smoking Cessati on ROSA, TJ S 10/02 Released w/o Limitations [facility] [place] ([facility])(I [facility] Pharm [facility]) [facility] [place] SPARKSB ([facility])([facility] Pharm D Clinic) OUTPATIENT [id number] SAMPSON NOE 10/16 Released w/o Limitations [facility] Danilo SPARKSB ([facility]I [facility]) [facility] [employer]ilo SPARKSB ([facility])([facility]) OUTPATIENT [id number] Smoking Cessati on ROSA, TJ S 11/13 Released w/o Limitations [facility] Danilo SPARKSB ([facility]) [facility] Danilo SPARKSB ([facility])(Sco tt [facility] Fam Res Tm Green) OUTPATIENT [id number] thyroid issues [phone] ALY FIGUEROA 11/24 Released w/o Limitations [facility] [employer] ([facility])(S [facility] Fam Res Tm Green) [address] [place] [address] Danilo SPARKSB ([facility])(Sco tt [facility]) TELE CONSULT [id number] Notes Entered by: QUIANA NOVA 16 Dec 2011 0945 ------- ------- ------- ------- -- Test results Ad cad tlt ALY FIGUEROA 12/[address] [place] [address] Danilo [facility])(S [facility]) [address] [place] [address] Danilo [facility])(Njo tt [facility]) OUTPATIENT [id number] f/u for thyroid and cholest [place] [phone] ALY FIGUEROA 12/25 Released w/o Limitations [address] [place] [address] Danilo [facility])(S [facility]) [address] [place] [address] Danilo [facility])(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) OUTPATIENT [id number] MENORRH AGIA JOSE HENNING 01/12 Released w/o Limitations [address] [place] [address] Danilo [facility])(G ynecodarcy gy) [address] [place] [address] Danilo [facility])(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) OUTPATIENT [id number] EMB [id number] JOSE HENNING 01/14 Released w/o Limitations [address] [place] [address] Danilo [facility])(G ynecolo gy) [address] [place] [address] Danilo [facility])(Njo tt [facility]) TELE CONSULT [id number] Notes Entered by: QUIANA NOVA 15 Jan 2012 0927 ------- ------- ------- ------- -- Referra hortno APPSylvain Avila cad tlt ELVIN JOHNSON 01/[address] [place] [address] Danilo [facility])(S [facility]) [address] [place] [address])(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) TELE CONSULT [id number] Notes Entered by: SHADY HENNING 13 Feb 2012 1457 ------- ------- ------- ------- -- EMB results JOSE HENNING 02/[address] [place] [address] [employer] ([facility])(O b/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) [facility] Danilo DESAI ([facility])(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) OUTPATIENT [id number] pre op/ [phone] JOSE HENNING 03/23 Released w/o Limitations [employer] Danilo DESAI ([facility])(G ynecolo gy) [facility] [employer]ilo SPARKSB ([facility])(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) TELE CONSULT [id number] Notes Entered by: HEAVEN TOBIN 12 Apr 2012 1446 ------- ------- ------- ------- -- Surgery darte HEAVEN TOBIN 04/[address] [place] [address] Group Danilo SPARKS ([facility])(G ynecolo gy) [facility]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) TELE CONSULT [id number] Notes Entered by: JOSHUA GARCIA 03 May 2012 1511 ------- ------- ------- ------- -- F/u appt needed HEAVEN TOBIN 05/[address] [place] [address] Group [facility]G ynecodarcy gy) [facility]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) OUTPATIENT [id number] f/u post hyst, lay&JOSE Diaz 05/20 Released w/o Limitations [facility] Danilo DESAI ([facility])(G yemacodarcy gy) [facility] tt Internal Medicine Tm) OUTPATIENT [id number] chronic headach es [id number] SHARMAINE MAYES 06/22 Released w/o Limitations [facility] Danilo SPARKSB ([facility])(S cott Interna l Medicin e Tm) [facility] Danilo DESAI ([facility])([facility] tt Internal Medicine Tm) OUTPATIENT [id number] follow up migrain es [id number] SHARMAINE MAYES 07/30 Released w/o Limitations [facility] Danilo SPARKSB ([facility])(S cott Interna l Medicin e Tm) [facility] Danilo SPARKSB [facility])(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) TELE CONSULT [id number] Notes Entered by: JOSHUA GARCIA 24 Aug 2012 1619 ------- ------- ------- ------- -- MARIO Lerma 08/[address] [place] [address])(Diandra blount gy) [address] [place] [address])([facility] Internal Medicine ) TELE CONSULT [id number] Notes Entered by: LUIS ANGEL MAHAN 30 Aug 2012 0810 ------- ------- ------- ------- -- Refill of medicat ion- WILLI Ireland 08/[address] [place] [address])(S cott Interna l Medicin e Tm) [address] [place] [address])([facility] Internal Medicine ) TELE CONSULT [id number] Notes Entered by: GUERRERO HERNANDEZ 06 Oct 2012 1441 ------- ------- ------- ------- -- Network results - Pulmona ry Sleep Medicin e 2 SHARMAINE MAYES 10/[address] [place] [address])(S cott Interna l Medicin e Tm) [address] [place] [address])(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) TELE CONSULT [id number] Notes Entered by: KVNG BYERS 28 Oct 2012 1301 ------- ------- ------- ------- -- Network Results - UROGYN 2 MUSA MURGUIA 10/[address] [place] [address])(O b/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) [address] [place] [address])([facility] Internal Medicine ) OUTPATIENT [id number] kidney stones [id number] SHARMAINE MAYES 11/01 Released w/o Limitations [address] [place] [address])(S cott Interna l Medicin e Tm) [address] [place] [address])(Sco tt Internal Medicine Tm) TELE CONSULT [id number] Notes Entered by: DEVI CORRAL 06 Dec 2012 1008 ------- ------- ------- ------- -- Bhaskar Mayes - [phone] WILLI MARTINEZ 12/[address] [place] [address])(S cott Interna l Medicin e Tm) [address] [place] [address])(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) OUTPATIENT [id number] Vaginal Dischar ge MUSA MURGUIA 12/24 Released w/o Limitations [address] [place] [address])(G ynecolo gy) [address] [place], [place] [address]B [facility])(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) TELE CONSULT [id number] Notes Entered by: HEAVEN TOBIN 11 Jan 2013 1430 ------- ------- ------- ------- -- results MUSA MURGUIA 01/[address] [place] [address])(G ynecolo gy) [address] [place], [place] [address]B [facility])(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) OUTPATIENT [id number] f/u vaginal dischar ge - [phone] MUSA MURGUIA 01/12 Released w/o Limitations [address] [place] [address])(G ynecolo gy) [address] [place] [address])([facility] Internal Medicine ) TELE CONSULT [id number] Notes Entered by: KVNG BYERS 14 Jan 2013 1145 ------- ------- ------- ------- -- Network Results - UROLOGY 01/11/13 SHARMAINE MAYES 01/[address] [place] [address] ([facility])(S cott Interna l Medicin e Tm) [address] [place], [place] [address]B [facility])([facility] tt Internal Medicine Tm) TELE CONSULT [id number] Notes Entered by: Sylvain JONES 18 Jan 2013 1056 ------- ------- ------- ------- -- Bhaskar Mayes [phone] WILLI MARTINEZ 01/[address] [place] [address])(S cott Interna l Medicin e Tm) [address] [place] [address])([facility] Internal Medicine ) TELE CONSULT [id number] Notes Entered by: Ashkan MARTINEZ 19 Jan 2013 1601 ------- ------- ------- ------- -- Status of Ltr. WILLI MARTINEZ 01/[address] [place] [address])(S cott Interna l Medicin e Tm) [address] [place] [address])([facility] Internal Medicine ) TELE CONSULT [id number] Notes Entered by: KVNG BYERS 16 Feb 2013 1419 ------- ------- ------- ------- -- Network Results - UROLOGY 02/03/13 SHARMAINE MAYES 02/[address] [place] [address])(S cott Interna l Medicin e Tm) [address] [place] [address])([facility] Internal Medicine ) TELE CONSULT [id number] Notes Entered by: KVNG BYERS 17 Feb 2013 1644 ------- ------- ------- ------- -- Network Results - UROLOGY 02/17/13 SHARMAINE MAYES 02/[address] [place] [address])(S cott Interna l Medicin e Tm) [address] [place] [address])([facility] Internal Medicine ) OUTPATIENT [id number] CAT SCAN AT [facility] SHOWS MASS IN RIGHT BREAST [id number] SHARMAINE MAYES 02/25 Released w/o Limitations [address] [place] [address])(S cott Interna l Medicin e Tm) [address] [place] [address])([facility] Internal Medicine ) TELE CONSULT [id number] Notes Entered by: DEVI CORRAL 08 Jul 2013 1033 ------- ------- ------- ------- -- Bhaskar Mayes - [phone] PIERRE THORNTON I 07/[address] [place] [address])(S cott Interna l Medicin e Tm) [address] [place] [address])(Opt ometry) OUTPATIENT [id number] ROUTINE MAHOGANY RAMIRES 10/14 Released w/o Limitations [address] [place] [address])(O ptometr y) [address] [place] [address])([facility] Internal Medicine ) TELE CONSULT [id number] Notes Entered by: QUIANA NOVA 24 Jan 2014 0802 ------- ------- ------- ------- -- Med refill Bebo WILLI MARTINEZ 01/[address] [place] [address])(S cott Interna l Medicin e Tm) [address] [place] [address])([facility] Internal Medicine ) TELE CONSULT [id number] Notes Entered by: RADHA MAYES 02 Feb 2014 1648 ------- ------- ------- ------- -- Study results SHARMAINE MAYES 02/[address] [place] [address] Danilo [facility])(S cott Interna l Medicin e Tm) [address] [place] [address])([facility] Internal Medicine ) OUTPATIENT [id number] F/u headach SHARMAINE MAYES 02/06 Released w/o Limitations [address] [place] [address])(S cott Interna l Medicin e Tm) [address] [place] [address])([facility] Fam Res Tm Red) OUTPATIENT [id number] 2nd floor ASFB/Pr eop clinic Minor procedu res AMRIT RESENDEZ 03/07 Released w/o Limitations [address] [place] [address])(S cott [facility] Fam Res Tm Red) [address] [place] [address])([facility]) OUTPATIENT [id number] 2nd floor [facility]/TRAVON Lin 03/22 Released w/o Limitations [address] [place] [address])([facility] Blue) [address] [place] [address])([facility]) TELE CONSULT [id number] Notes Entered by: KENZIE RIVERA 23 Mar 2014 1335 ------- ------- ------- ------- -- Call back C-scope on [id number] - KENZIE Collazo 03/[address] [place] [address])([facility]) [address] [place] [address])([facility] Internal Medicine ) TELE CONSULT [id number] Notes Entered by: QUIANA NOVA 31 Mar 2014 0735 ------- ------- ------- ------- -- Med refill Mayes [phone] WILLI MARTINEZ 03/[address] [place] [address])(S cott Interna l Medicin e Tm) [address] [place] [address])([facility] Internal Medicine ) TELE CONSULT [id number] Notes Entered by: ULIS SWEENEY 28 Jun 2014 0708 ------- ------- ------- ------- -- SX - multipl e symptom s/Ortiz / or * JAMEL EARLY 06/[address] [place] [address])(S cott Interna l Medicin e Tm) [address] [place] [address])([facility] Internal Medicine ) TELE CONSULT [id number] Notes Entered by: MARILYNN SOARES 24 Jul 2014 1236 ------- ------- ------- ------- -- Sx/head and chest congest ion/hen ry/618. [phone]* JAMEL EARLY Kristi 07/[address] [place] [address])(S cott Interna l Medicin e Tm) [address] [place] [address])([facility] Internal Medicine ) TELE CONSULT [id number] Notes Entered by: PIETRO COOK 27 Sep 2014 1359 ------- ------- ------- ------- -- Sleep Study Disorde r Referra l renewal request ed by Pt REVA OCOK 09/27 Referred for Appointment [address] [place] [address])(S cott Interna l Medicin e Tm) [address] [place] [address])([facility] Internal Medicine ) TELE CONSULT [id number] Notes Entered by: MASTER BURTON 12 Jan 2015 0916 ------- ------- ------- ------- -- Network results - Urgent Care 014 JOSE ANAYA V 01/[address] [place] [address])(S cott Interna l Medicin e Tm) [address] [place] [address])([facility] Internal Medicine ) TELE CONSULT [id number] Notes Entered by: SALVADOR ACRTER 25 Apr 2015 0913 ------- ------- ------- ------- -- Med Clarie /Cari /[phone] 40 WILLI MARTINEZ 04/[address] [place] [address])(S cott Interna l Medicin e Tm) [address] [place] [address])([facility] Internal Medicine ) OUTPATIENT [id number] f/u HLP/lab s/medBRIAN Garnica 05/14 Released w/o Limitations [address] [place] [address])(S cott Interna l Medicin e Tm) [address] [place] [address])([facility] Internal Medicine ) TELE CONSULT [id number] Notes Entered by: KYA SQUIRES 12 Jun 2015 0910 ------- ------- ------- ------- -- Sx - headach e, diarrhe a, nose burning - Ortiz - [phone]* JAMEL EARLY 06/[address] [place] [address] Group [facility])(S cott Interna l Medicin e Tm) [address] [place] [address])([facility] Internal Medicine ) OUTPATIENT [id number] Headach e, diarrhe a X 2 days BRIAN MARTINEZ 06/12 Released w/o Limitations [address] [place] [address])(S cott Interna l Medicin e Tm) [address] [place] [address])([facility] Internal Medicine ) TELE CONSULT [id number] Notes Entered by: Diandra RG 18 Jan 2016 0822 ------- ------- ------- ------- -- Micare msg/ med refill x 3 meds [phone] SCOTT SHAH 01/17 Medication Refill Forwarded [address] [place] [address])(S cott Interna l Medicin e Tm) [address] [place] [address])([facility] Internal Medicine ) TELE CONSULT [id number] Notes Entered by: Diandra RG 17 Mar 2016 0932 ------- ------- ------- ------- -- Micare msg/ x 2 referra l and civ fitness letter SCOTT SHAH 03/17 Referred for Appointment [address] [place] [address] Group [facility])(S cott Interna l Medicin e Tm) [address] [place] [address])([facility] Internal Medicine ) OUTPATIENT [id number] Physica l for fitness MIHAELA Urban 03/18 Released w/o Limitations [address] [place] [address])(S cott Interna l Medicin e Tm) [address] [place] [address])([facility] Internal [facility]) TELE CONSULT [id number] Notes Entered by: ANDREW QUISPE 02 Jun 2016 1403 ------- ------- ------- ------- -- LYNSEY OQUENDO GONZALEZJAMEL WALLACE Kristi 06/[address] [place] [address])(S cott Interna l Medicin e Tm) [address] [place] [address])(War rior Op Med Cln Tm A Ad) OUTPATIENT [id number] Sinus Cold KUNAL VAIL 10/22 Released w/o Limitations [address] [place] [address])(W arrior Op Med Cln Tm A Ad) [address] [place] [address])(Fam kristen Med Tm B Non-AD BCC) TELE CONSULT [id number] Notes Entered by: HOLLAND VARELA 18 Nov 2016 1552 ------- ------- ------- ------- -- Medicat ion Refill/ ALTON Linares 11/18 Referred for Appointment [address] [place] [address])(F amily Med Tm B Non-AD BCC) [address] [place] [address])(War rior Op Med Cln Tm A Ad) OUTPATIENT [id number] medicat ion f/u KUNAL VAIL 12/11 Released w/o Limitations [address] [place] [address])(W arrior Op Med Cln Tm A Ad) [address] [place] [address])(War rior Op Med Cln Tm A Ad) TELE CONSULT [id number] Notes Entered by: ARETHA AGUILERA 12 Dec 2016 0937 ------- ------- ------- ------- -- colonos copy HAYLEY, PAULO Edward 12/[address] [place] [address])(W arrior Op Med Cln Tm A Ad) [address] [place] [address])(War rior Op Med Cln Tm A Ad) TELE CONSULT [id number] Notes Entered by: ARETHA AGUILERA 12 Dec 2016 1600 ------- ------- ------- ------- -- Colonos copy due 2023 PAULO HARDY 12/[address] [place] [address])(W arrior Op Med Cln Tm A Ad) [address] [place] [address])([facility] kristen Med Tm B Non-AD BCC) OUTPATIENT [id number] x/b - Muscle Pain, Fatigue , [phone] 0 MAISHA PATRICK 03/25 Released w/o Limitations [address] [place] [address])(F amily Med Tm B Non-AD BCC) [address] [place] [address])([facility] kristen Med Tm B Non-AD BCC) TELE CONSULT [id number] Notes Entered by: HOLLAND VARELA 02 Apr 2017 1501 ------- ------- ------- ------- -- Refer l Request /Skinny waterman PAULO HARDY 04/[address] [place] [address])(F amily Med Tm B Non-AD BCC) [address] [place] [address])([facility] kristen Med Tm B Non-AD BCC) TELE CONSULT [id number] Notes Entered by: EVGENY MARTINEZ 21 Sep 2017 0847 ------- ------- ------- ------- -- Sx persist -kidney stone-m ultiple issues/ Roberto milton/[phone]/ plc HAYLEYPAULO Starks 09/[address] [place] [address])(F amily Med Tm B Non-AD BCC) [address] [place] [address])(War rior Op Med Cln Tm A Ad) TELE CONSULT [id number] Notes Entered by: DEVI CORRAL 23 Sep 2017 1055 ------- ------- ------- ------- -- Hospita l F/U - referra stefany - Roberto ki - - tsg PAULO HARDY 09/[address] [place] [address] Danilo [facility])(W arrior Op Med Cln Tm A Ad) [address] [place] [address] Danilo [facility])(War rior Op Med Cln Tm A Ad) TELE CONSULT [id number] Notes Entered by: Cheyanne PENN 24 Sep 2017939 ------- ------- ------- ------- -- Referra l PAULO HARDY Cheyanne 09/[address] [place] [address])(W arrior Op Med Cln Tm A Ad) [address] [place] [address])(Car e Coordin[facility] ion Clinic) TELE CONSULT [id number] Notes Entered by: CHUY BURGOS 24 Sep 2017 1117 ------- ------- ------- ------- -- Hospita l admissi on notific ation CHUY BURGOS 09/[address] [place] [address] Danilo [facility])(C are Coordin ation Clinic) [address] [place] [address])(Car e Coordinat ion Clinic) TELE CONSULT [id number] Notes Entered by: CHUY BURGOS 25 Sep 2017 0925 ------- ------- ------- ------- -- Hospita l dischar ge notific ation CHUY BURGOS 09/[address] [place] [address])(C are Coordin ation Clinic) [address] [place] [address])(Fam kristen Med Tm B Non-AD BCC) TELE CONSULT [id number] Notes Entered by: MARISOL MONTEMAYOR 25 Sep 201740 ------- ------- ------- ------- -- Network Results Emergen cy Room 7 KUNAL VAIL 09/[address] [place] [address])(F amily Med Tm B Non-AD BCC) [address] [place] [address])(Fam kristen Med Tm B Non-AD BCC) TELE CONSULT [id number] Notes Entered by: SILAS RODRIGUEZ 05 Oct 2017 1029 ------- ------- ------- ------- -- Network Results Emergen cy Room 7 MMM KUNAL VAIL 10/[address] [place] [address] Danilo [facility])(F amily Med Tm B Non-AD BCC) [address] [place] [address])(Fam kristen Med Tm B Non-AD BCC) TELE CONSULT [id number] Notes Entered by: SILAS RODRIGUEZ 06 Oct 2017 0906 ------- ------- ------- ------- -- Network Results Emergen cy Room 7 MM KUNAL VAIL 10/[address] [place] [address] Danilo [facility])(F amily Med Tm B Non-AD BCC) [address] [place] [address])(War rior Op Med Cln Tm A Ad) TELE CONSULT [id number] Notes Entered by: TARAN ANGULO 27 Oct 2017 0853 ------- ------- ------- ------- -- Network Results Radiolo gy 7 KUNAL OSULLIVAN 10/[address] [place] [address] Danilo [facility])(W arrior Op Med Cln Tm A Ad) [address] [place] [address])(War rior Op Med Cln Tm A Ad) TELE CONSULT [id number] Notes Entered by: SANDOR HAMILTON 02 Nov 2017 0747 ------- ------- ------- ------- -- Network Results -UROLOG Y 7 KUNAL CARMONA 11/[address] [place] [address] Danilo [facility])(W arrior Op Med Cln Tm A Ad) [address] [place] [address])(War rior Op Med Cln Tm A Ad) TELE CONSULT [id number] Notes Entered by: MADHU SHELBY 03 Nov 2017 0851 ------- ------- ------- ------- -- Network Results Radiolo gy 7 TDC (abd 1 view) KUNAL VAIL 11/[address] [place] [address])(W arrior Op Med Cln Tm A Ad) [address] [place] [address])(War rior Op Med Cln Tm A Ad) TELE CONSULT [id number] Notes Entered by: MADHU SHELBY 19 Nov 2017 1340 ------- ------- ------- ------- -- Network Results Radiolo gy 8 TDC (retrog rade pyelogr am) KUNAL VAIL 11/[address] [place] [address])(W arrior Op Med Cln Tm A Ad) [address] [place] [address])(War rior Op Med Cln Tm A Ad) TELE CONSULT [id number] Notes Entered by: DEVI CORRAL 18 Dec 2017 0947 ------- ------- ------- ------- -- Extend or renew bhaskar Mejia ki - [phone] - tsg HAYLEY, PAULO J 12/[address] [place] [address])(W arrior Op Med Cln Tm A Ad) [address] [place] [address])(War rior Op Med Cln Tm A Ad) TELE CONSULT [id number] Notes Entered by: LIONEL HAWKINS 11 Feb 2018 0731 ------- ------- ------- ------- -- Micare/ med refill HAYLEY, PAULO J 02/[address] [place] [address])(W arrior Op Med Cln Tm A Ad) [facility])(War rior Op Med Cln Tm A Ad) OUTPATIENT [id number] Jose Armando [facility] med claire s, [phone] 0 KUNAL VAIL 02/23 Released w/o Limitations [facility])(W arrior Op Med Cln Tm A Ad) [facility])(War rior Op Med Cln Tm A Ad) OUTPATIENT [id number] Notes Entered by: TJ MELGOZA 30 Mar 2018 1353 ------- ------- ------- ------- -- WALK-IN UTI KUNAL VAIL 03/30 Released w/o Limitations [facility])(W arrior Op Med Cln Tm A Ad) [facility])(War rior Op Med Cln Tm A Ad) TELE CONSULT [id number] Notes Entered by: NIC PHILLIP 16 Jun 2018 0931 ------- ------- ------- ------- -- Bhaskar Merlos - Appt Jun / Roberto milton / - sgj SANDI ALDRIDGE 06/16 Referred for Appointment [facility])(W arrior Op Med Cln Tm A Ad) [facility])(War rior Op Med Cln Tm A Ad) TELE CONSULT [id number] Notes Entered by: HAZEL STODDARD 17 Feb 2019 1119 ------- ------- ------- ------- -- MARGARITO [facility] Team 1: Office Message SANDI ALDRIDGE 02/17 Referred for Appointment [facility])(W arrior Op Med Cln Tm A Ad) [facility])(War rior Op Med Cln Tm A Ad) OUTPATIENT [id number] 1 discuss surgica l procedu re for sinuses [id number] FEBRUARYDERRICK R 06/07 Released w/o Limitations [facility])(W arrior Op Med Cln Tm A Ad) [facility])(War rior Op Med Cln Tm A Ad) TELE CONSULT [id number] Notes Entered by: DEBRA ANDREWS 24 Aug 2019 1214 ------- ------- ------- ------- -- Referra burak Issue and Request /Freili no/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) OUTPATIENT [id number] 4 [facility] RAS DAVALOS 09/28 Released w/o Limitations [address] [place] [address])(Diandra mcgowan) [address] [place] [address])(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) TELE CONSULT [id number] 8 Notes Entered by: DEVANG DAVALOS 04 Oct 2019 1842 ------- ------- ------- ------- -- results JT HANNAH 10/05 Released to Self Care [address] [place] [address])(Diandra blount gy) [address] [place] [address])(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) TELE CONSULT [id number] 4 Notes Entered by: DEVANG DAVALOS 17 Oct 2019 1043 ------- ------- ------- ------- -- results CARLITOSJT Yu Sylvain 10/17 Referred for Appointment [address] [place] [address])(G ynecolo gy) [address] [place] [address])(War rior Op Med Cln Tm A Ad) OUTPATIENT [id number] Advised to schedul e appt from results of a bone scan [id number] BERTHA VERA 11/11 Released w/o Limitations [address] [place] [address])(W arrior Op Med Cln Tm A Ad) [address] [place] [address])(War rior Op Med Cln Tm A Ad) TELE CONSULT [id number] [address]: [facility] PA[facility] DAMON 01 May 2020 1326 ------- ------- ------- ------- -- Network results Dermato logy 020 CHEYENNE BURKS 05/[address] [place] [address])(W arrior Op Med Cln Tm A Ad) [address] [place] [address])(War rior Op Med Cln Tm A Ad) TELE CONSULT [id number] 6 Notes Entered by: HAZEL STODDARD 16 May 2020 1431 ------- ------- ------- ------- -- MARGARITO HAZEL Osman 05/16 Released to Self Care [address] [place] [address])(W arrior Op Med Cln Tm A Ad) [address] [place] [address])(War rior Op Med Cln Tm A Ad) TELE CONSULT [id number] 3 Notes Entered by: MAMADOU GRIMM 11 Jun 2020 0900 ------- ------- ------- ------- -- Secure Message - SAMPSON Lim 06/11 Other Not Elsewhere Classified [address] [place] [address])(W arrior Op Med Cln Tm A Ad) [address] [place] [address])(Fam kristen Med Tm B Non-AD BCC) TELE CONSULT [id number] 3 Notes Entered by: Kristi RIVERS 25 Jun 2020 1437 ------- ------- ------- ------- -- Network results Gastroe nterolo gy 020 ALD HERBIE DERRICK R 06/[address] [place] [address])(F amily Med Tm B Non-AD BCC) [address] [place] [address])(Fam kristen Med Tm B Non-AD BCC) TELE CONSULT [id number] 0 Notes Entered by: Kristi RIVERS 23 Jul 2020 1316 ------- ------- ------- ------- -- Network results Pulmona ry/Sonal p Medicin e 020 SHARMAINE BROOKS 07/[address] [place] [address])(F amily Med Tm B Non-AD BCC) [address] [place] [address])(War rior Op Med Cln Tm A Ad) TELE CONSULT [id number] 0 Notes Entered by: HAZEL STODDARD 30 Jul 2020 1340 ------- ------- ------- ------- -- MARGARITO Secure [facility] Team 1: Rx Renewal BRITTNEY BLEVINS 07/30 Other Not Elsewhere Classified [address] [place] [address])(W arrior Op Med Cln Tm A Ad) [address] [place] [address])(War rior Op Med Cln Tm A Ad) TELE CONSULT [id number] 5 Notes Entered by: HAZEL STODDARD 02 Aug 2020 1543 ------- ------- ------- ------- -- MARGARITO Secure [facility] Team 1: Office Message BRITTNEY BLEVINS 08/02 Released to Self Care [address] [place] [address])(W arrior Op Med Cln Tm A Ad) [address] [place] [address])(War rior Op Med Cln Tm A Ad) TELE CONSULT [id number] 6 Notes Entered by: CHRISTIAN PEÑA 08 Aug 2020 1357 ------- ------- ------- ------- -- Lab Results SHARMAINE SARMIENTO 08/[address] [place] [address])(W arrior Op Med Cln Tm A Ad) [address] [place] [address])(Fam kristen Med Tm B Non-AD BCC) TELE CONSULT [id number] 7 Notes Entered by: KINGSTON TUBBS 23 Aug 2020 0802 ------- ------- ------- ------- -- Resched tiffanie Appt Request / Nas milton/ - OUMAR Us 08/23 Other Not Elsewhere Classified [address] [place] [address])(F amily Med Tm B Non-AD BCC) [address] [place] [address])(Fam kristen Med Tm B Non-AD BCC) OUTPATIENT [id number] Med formerly [facility] s Virtual SHARMAINE SARMIENTO 08/31 Released w/o Limitations [address] [place] [address])(F amily Med Tm B Non-AD BCC) [address] [place] [address])(Fam kristen Med Tm B Non-AD BCC) TELE CONSULT [id number] 6 Notes Entered by: Ashkan LAZAR 26 Sep 2020 1006 ------- ------- ------- ------- -- Network results Gastroe edwin gy 020 SHARMAINE SALAS 09/[address] [place] [address])(F amily Med Tm B Non-AD BCC) [address] [place] [address])(War rior Op Med Cln Tm A Ad) TELE CONSULT [id number] 7 Notes Entered by: HAZEL STODDARD 08 Oct 2020 0920 ------- ------- ------- ------- -- [facility]: HAZEL Villasenor 10/08 Released to Self Care [address] [place] [address])(W arrior Op Med Cln Tm A Ad) [address] [place] [address])(Fam kristen Med Tm B Non-AD BCC) TELE CONSULT [id number] 0 Notes Entered by: Sylvain NOE 02 Nov 2020 1256 ------- ------- ------- ------- -- Network results Surgery 1 TSKAY VILLANUEVA 11/[address] [place] [address])(F amily Med Tm B Non-AD BCC) [address] [place] [address])(War rior Op Med Cln Tm A Ad) TELE CONSULT [id number] 8 Notes Entered by: Kristi RIVERS 27 Nov 2020 0839 ------- ------- ------- ------- -- Network results Surgery 021 ALD KAY ZHENG 11/[address] [place] [address])(W arrior Op Med Cln Tm A Ad) [address] [place] [address])(War rior Op Med Cln Tm A Ad) TELE CONSULT [id number] 6 Notes Entered by: RONDA AVALOS 28 Nov 2020 1140 ------- ------- ------- ------- -- Network Results LABORAT OR 1 KAY ZHENG 11/[address] [place] [address])(W arrior Op Med Cln Tm A Ad) [address] [place] [address])(Fam kristen Med Tm B Non-AD BCC) TELE CONSULT [id number] 0 Notes Entered by: MARITO HEBERT Feb 2021 1218 ------- ------- ------- ------- -- Network Results Summary of Care 11/26/20 KAY ZHENG 11/[address] [place] [address])(F amily Med Tm B Non-AD BCC) [address] [place] [address])(Fam kristen Med Tm B Non-AD BCC) TELE CONSULT [id number] 3 Notes Entered by: Kristi RIVERS 14 Dec 2020 1016 ------- ------- ------- ------- -- Network results Surgery 021 KAY BERMUDEZ 12/[address] [place] [address])(F amily Med Tm B Non-AD BCC) [address] [place] [address])(Fam kristen Med Tm B Non-AD BCC) TELE CONSULT [id number] 0 Notes Entered by: Kristi RIVERS 27 Dec 2020 0906 ------- ------- ------- ------- -- Network results Surgery 021 GLENN MARINO 12/[address] [place] [address])(F amily Med Tm B Non-AD BCC) [address] [place] [address])(Fam kristen Med Tm B Non-AD BCC) TELE CONSULT [id number] 5 Notes Entered by: Kristi RIVERS 30 Jan 2021 1159 ------- ------- ------- ------- -- Network results Surgery 021 KAY BERMUDEZ 01/[address] [place] [address])(F amily Med Tm B Non-AD BCC) [address] [place] [address])(Fam kristen Med Tm B Non-AD BCC) TELE CONSULT [id number] 3 Notes Entered by: MAMADOU GRIMM 20 Mar 2021 1402 ------- ------- ------- ------- -- MARGARITO Secure Message - Bhaskar Rosario ([facility]) SAMPSON ARTHUR 03/20 Other Not Elsewhere Classified [address] [place], [place] [address]B [facility]F amily Med Tm B Non-AD BCC) [address] [place], [place] [address]B [facility]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) OUTPATIENT [id number] [facility] RONN ALATORRE 03/28 Released w/o Limitations [address] [place] [address] [employer] [facility])(G ynecolo gy) [address] [place] [address] [employer] [facility])(Fam kristen Med Tm B Non-AD BCC) OUTPATIENT [id number] I am having acid reflux issues and would like to get seen for it MESFIN LONG 03/28 Released w/o Limitations [address] [place], [place] [address]B [facility])(F amily Med Tm B Non-AD BCC) [address] [place], [place] [address]B [facility]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) TELE CONSULT [id number] 3 Notes Entered by: STEPHEN ALATORRE 03 Apr 2021 1133 ------- ------- ------- ------- -- MIKAEL Cedillo 04/03 Other Not Elsewhere Classified [address] [place], [place] [address]B [facility])(G ynecolo gy) [address] [place] [address])(Fam kristen Med Tm B Non-AD BCC) TELE CONSULT [id number] Notes Entered by: Kristi RIVERS 02 May 2021 0942 ------- ------- ------- ------- -- Network results Dermato logy 021 MESFIN WALLACE 05/[address] [place] [address] [employer] [facility])(F amily Med Tm B Non-AD BCC) [address] [place] [address] [employer] ([facility])(Fam kristen Med Tm B Non-AD BCC) TELE CONSULT [id number] 5 Notes Entered by: DENISE SCHULZ 09 May 2021 0819 ------- ------- ------- ------- -- Network results Physica l Therapy 021 KAY VOSS 05/[address] [place] [address] [employer] [facility])(F amily Med Tm B Non-AD BCC) [address] [place] [address])(Fam kristen Med Tm B Non-AD BCC) TELE CONSULT [id number] 9 Notes Entered by: HAZEL STODDARD 17 May 2021 0642 ------- ------- ------- ------- -- MARGARITO Secure Messsarai ng Referra l Request HAZEL STODDARD 05/17 Released to Self Care [address] [place] [address] [employer] [facility])(F amily Med Tm B Non-AD BCC) [address] [place] [address] [employer] [facility])(Fam kristen Med Tm B Non-AD BCC) TELE CONSULT [id number] 7 Notes Entered by: HAZEL STODDARD 27 Jun 2021 0907 ------- ------- ------- ------- -- MARGARITO Secure Stacia hercules Prescri ption - Renewal Request HAZEL STODDARD 06/27 Released to Self Care [address] [place] [address] [employer] [facility])(F amily Med Tm B Non-AD BCC) [address] [place] [address] [employer] [facility])(Fam kristen Med Tm B Non-AD BCC) OUTPATIENT [id number] 5 FACE TO FACE: Medicat ion refills MESFIN LONG 07/12 Released w/o Limitations [address] [place] [address] [employer] [facility])(F amily Med Tm B Non-AD BCC) [address] [place] [address] [employer] [facility])(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) TELE CONSULT [id number] 0 Notes Entered by: Sylvain NOE 15 Jul 2021 1125 ------- ------- ------- ------- -- Network results PT 07/15/21 LUCILLE BA 07/15 Other Not Elsewhere Classified [address] [place] [address] [employer] [facility])(O b/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) [address] [place] [address])(Fam kristen Med Tm B Non-AD BCC) TELE CONSULT [id number] 6 Notes Entered by: MESFIN LONG 03 Aug 2021 1635 ------- ------- ------- ------- -- Rad results MESFIN LONG 08/[address] [place] [address] [employer] [facility])(F amily Med Tm B Non-AD BCC) [address] [place] [address])(Sco tt [facility] FAMRES Tm Blue) TELE CONSULT [id number] 5 Notes Entered by: HAZEL COSTA 10 Mar 2022 1012 ------- ------- ------- ------- -- Zeke Escobar ption Request /Dr. Laws/ JUAN WASHINGTON 03/10 Released to Self Care [address] [place] [address])(S cott [facility] FAM[facility] Tm Blue) [address] [place] [address])(Sco tt [facility] FAMRES Tm Blue) TELE CONSULT [id number] 8 Notes Entered by: JOSEF SANDY 08 May 2022 0749 ------- ------- ------- ------- -- COLT Longoria 05/08 Released to Self Care [address] [place] [address])(S cott [facility] FAMRES Tm Blue) [address] [place] [address] [employer] [facility])(Sco tt [facility] FAMRES Tm Blue) OUTPATIENT [id number] F2F - Abdomin al pain, medicat ions, HERBIE COLVIN 05/08 Released w/o Limitations [address] [place] [address] [employer] [facility]S cott [facility] FAMRES Tm Blue) [address] [place] [address] [employer] [facility])(Sco tt [facility] Fam Res Tm Green) TELE CONSULT [id number] 5 Notes Entered by: Sylvain COLVIN 26 May 2022 0815 ------- ------- ------- ------- -- Lab results HERBIE COLVIN 05/26 Referred for Appointment [address] [place] [address])(S cott [facility] Fam Res Tm Green) [address] [place] [address])(Sco tt [facility] FAMRES Tm Blue) TELE CONSULT [id number] 0 Notes Entered by: JENNIFER CORREA 12 Sep 2022 0908 ------- ------- ------- ------- -- Network Results - ED CC: Cate 09/03/20 CANDY ESCALONA 09/12 Released to Self Care [address] [place] [address])(S [facility] FAMRES Tm Blue) [address] [place] [address])(Sco tt [facility] FAMRES Tm Blue) TELE CONSULT [id number] 6 Notes Entered by: ROHIT GARBER 16 Sep 2022 1501 ------- ------- ------- ------- -- Network Results - Dischar ge From ED 09/03/22 CANDY ESCALONA 09/16 Released to Self Care [address] [place] [address])(S cott [facility] FAMRES Tm Blue) [address] [place] [address])(Sco tt [facility] FAMRES Tm Blue) TELE CONSULT [id number] 8 Notes Entered by: SOBEIDA WILDER 16 Mar 2023 1400 ------- ------- ------- ------- -- Rx Renewal /Zeke /EDI Solares 03/16 Referred for Appointment [address] [place] [address])(S cott [facility] FAMRES Tm Blue) [address] [place] [address])(Sco tt [facility] FAMRES Tm Blue) OUTPATIENT [id number] f2f annual, rx f/u HERBIE COLVIN 03/18 Released w/o Limitations [employer] DESAI ([facility]S abbi [facility] FAMRES Tm Blue) [facility] Outpatient Encounter [id number] 04/30 [facility] N 6130C-Af- C-375Th Medgrp-Sc mykel Between Visit [id number] 04/05 Discharge Disposition: Home or Self Care 6130C-A f-C-375 Th Medgrp- Danilo 6130C-Af- C-375Th Medgrp-Sc mykel Between Visit [id number] 04/05 Discharge Disposition: Home or Self Care 6130C-A f-C-375 Th Medgrp- Danilo 0055A-375 th MEDGRP-Sc mykel Outpatient [id number] TAMI HUFFMAN 04/10 Discharge Disposition: Home or Self Care 0055A-3 75th MED[facility]- [facility] 0055A-375 th MEDGRP-Sc mykel Outpatient [id number] TAMI SON 04/21 Discharge Disposition: Home or Self Care 0055A-3 75th [facility]- [facility] 6130C-Af- C-375Th Medgrp-Sc mykel Between Visit [id number] 05/10 Discharge Disposition: Home or Self Care 6130C-A f-C-375 Th Medgrp- [facility] Procedures Combined list of: 1) Procedures from Department of Veterans Affairs facilities going back up to thelast 18 months, not all VA non-surgical procedures are included; 2) All procedures from the Department of Defense facilities. Procedure Procedure Type Code Date Perfomer Casimiro Sourc e kidney stone lithotripsy 019 0055C-37 5th MED[facility]-S abbi kidney stone lithotripsy 017 0055C-37 5th [facility] Urinary sling replacement 013 0055C-37 5th [facility] PRK 009 0055C-37 5th [facility] abbi urninary sling 008 6130C-Af -C-375Th Medgrp-S abbi kidney stones lithotripsy 004 6130[facility] ankle fracture plate implant 2x 002 [facility] Tonsillectomy, primary or secondary; age 12 or over Tonsillectomy, primary or secondary; age 12 or over [id number] [place], [place] [address]C375[facility] ectopic [address] [place], [place] [address] wisdom teeth removed [phone] [place], [place] [address]C-375[facility] Colorectal cancer screening; colonoscopy on individual not meeting criteria for high risk 0055C-37 [facility] POSTOPERATIVE FOLLOW-UP VISIT, NORMALLY INCLUDED IN THE SURGICAL PACKAGE, INDICATE THAT EVALUATION & MANAGEMENT SERVICE WAS PERFORMED DURING A POSTOPERATIVE PERIOD REASON RELATED ORIGINAL PROCEDURE 009 DoD POSTOPERATIVE FOLLOW-UP VISIT, NORMALLY INCLUDED IN THE SURGICAL PACKAGE, INDICATE THAT EVALUATION & MANAGEMENT SERVICE WAS PERFORMED DURING A POSTOPERATIVE PERIOD REASON RELATED ORIGINAL PROCEDURE 009 [facility] PHOTOREFRACTIVE KERATECTOMY (PRK) 009 [facility] PHYS/OTH QUALIFIED HEALTH DRUM TENDER QUALIFIED,EDUCATION, TRAIN,LICENSURE/REGU LATION (WHEN APPLICABLE) EDUC SER RENDERED TO PATS IN A GRP SETTING (EG,,OBESITY ,OR DIABETIC INSTRUCT) 009 DoD DETERMINATION OF REFRACTIVE STATE 009 DoD OTHER REPAIR OF URINARY STRESS INCONTINENCE 008 DoD POSTOPERATIVE FOLLOW-UP VISIT, NORMALLY INCLUDED IN THE SURGICAL PACKAGE, INDICATE THAT EVALUATION & MANAGEMENT SERVICE WAS PERFORMED DURING A POSTOPERATIVE PERIOD REASON RELATED ORIGINAL PROCEDURE 008 DoD SLING OPERATION FOR STRESS INCONTINENCE (EG, FASCIA OR SYNTHETIC) 008 DoD CYSTOURETHROSCOPY (SEPARATE PROCEDURE) 008 DoD FITTING OF SPECTACLES, EXCEPT FOR APHAKIA; MONOFOCAL 008 DoD WHOLE BODY INTEGUMENTARY PHOTOGRAPHY, FOR MONITORING OF HIGH RISK PATIENTS WITH DYSPLASTIC NEVUS SYNDROME OR A HISTORY OF DYSPLASTIC NEVI, OR PATIENTS WITH A PERSONAL OR FAMILIAL HISTORY OF MELANOMA 008 DoD WHOLE BODY INTEGUMENTARY PHOTOGRAPHY, FOR MONITORING OF HIGH RISK PATIENTS WITH DYSPLASTIC NEVUS SYNDROME OR A HISTORY OF DYSPLASTIC NEVI, OR PATIENTS WITH A PERSONAL OR FAMILIAL HISTORY OF MELANOMA 008 [facility] SIZE REDUCTION PLASTIC OPERATION 008 [facility] REPAIR OF UMBILICAL HERNIA WITH GRAFT OR PROSTHESIS 008 [facility] REPAIR OF OTHER HERNIA OF ANTERIOR ABDOMINAL WALL WITH GRAFT OR PROSTHESIS 008 [facility] WHOLE BODY INTEGUMENTARY PHOTOGRAPHY, FOR MONITORING OF HIGH RISK PATIENTS WITH DYSPLASTIC NEVUS SYNDROME OR A HISTORY OF DYSPLASTIC NEVI, OR PATIENTS WITH A PERSONAL OR FAMILIAL HISTORY OF MELANOMA 007 DoD THERAPEUTIC, PROPHYLACTIC OR DIAGNOSTIC INJECTION (SPECIFY SUBSTANCE OR DRUG); SUBCUTANEOUS OR INTRAMUSCULAR 007 [facility] SCREENING PAPANICOLAOU SMEAR; OBTAINING, PREPARING AND CONVEYANCE OF CERVICAL OR VAGINAL SMEAR TO LABORATORY 007 [facility] FITTING OF SPECTACLES, EXCEPT FOR APHAKIA; MONOFOCAL 006 [facility] INJECTION, KETOROLAC TROMETHAMINE, PER [address] [facility] OTHER ARTIFICIAL RUPTURE OF MEMBRANES 995 [facility] MEDICAL INDUCTION OF LABOR 995 [facility] EKG (SCALP) 995 [facility] REPAIR OF OTHER CURRENT OBSTETRIC LACERATION 995 [facility] MANUAL REMOVAL OF RETAINED PLACENTA 995 DoD REPAIR OF CURRENT OBSTETRIC LACERATION OF CERVIX 995 DoD OTHER DIAGNOSTIC PROCEDURES ON FETUS AND AMNION 995 DoD FITTING OF SPECTACLES, EXCEPT FOR APHAKIA; MONOFOCAL 005 DoD INJECTION, KETOROLAC TROMETHAMINE, PER [address] [facility] COLLECTION OF VENOUS BLOOD BY VENIPUNCTURE 004 [facility] SCREENING PAPANICOLAOU SMEAR; OBTAINING, PREPARING AND CONVEYANCE OF CERVICAL OR VAGINAL SMEAR TO LABORATORY 004 [facility] PHYSICAL THERAPY RE-EVALUATION 003 [facility] MANUAL THERAPY TECHNIQUES (EG, MOBILIZATION/ MANIPULATION, MANUAL LYMPHATIC DRAINAGE, MANUAL TRACTION), 1 OR MORE REGIONS, EACH [address] 003 [facility] DETERMINATION OF REFRACTIVE STATE 003 DoD THERAPEUTIC PROCEDURE, 1 OR MORE AREAS, EACH 15 MINUTES; THERAPEUTIC EXERCISES TO DEVELOP STRENGTH AND ENDURANCE, RANGE OF MOTION AND FLEXIBILITY 003 DoD THERAPEUTIC PROCEDURE, 1 OR MORE AREAS, EACH 15 MINUTES; THERAPEUTIC EXERCISES TO DEVELOP STRENGTH AND ENDURANCE, RANGE OF MOTION AND FLEXIBILITY 002 [facility] THERAPEUTIC ACTIVITIES, DIRECT (ONE-ON-ONE) PATIENT CONTACT (USE OF DYNAMIC ACTIVITIES TO IMPROVE FUNCTIONAL PERFORMANCE), EACH [address] [facility] THERAPEUTIC ACTIVITIES, DIRECT (ONE-ON-ONE) PATIENT CONTACT (USE OF DYNAMIC ACTIVITIES TO IMPROVE FUNCTIONAL PERFORMANCE), EACH [address] [facility] THERAPEUTIC ACTIVITIES, DIRECT (ONE-ON-ONE) PATIENT CONTACT (USE OF DYNAMIC ACTIVITIES TO IMPROVE FUNCTIONAL PERFORMANCE), EACH [address] [facility] THERAPEUTIC ACTIVITIES, DIRECT (ONE-ON-ONE) PATIENT CONTACT (USE OF DYNAMIC ACTIVITIES TO IMPROVE FUNCTIONAL PERFORMANCE), EACH [address] [facility] THERAPEUTIC PROCEDURE,1 OR MORE AREAS,EACH 15 MINUTES;NEUROMUSCULA R REEDUCATION OF MOVEMENT,BALANCE,CONVEYOR LINE BATTERY CHARGER RDINATION,KINESTHETI C SENSE,POSTURE,AND/OR PROPRIOCEPTION FOR SITTING AND/OR STANDING ACTIVITIES [facility] THERAPEUTIC ACTIVITIES, DIRECT (ONE-ON-ONE) PATIENT CONTACT (USE OF DYNAMIC ACTIVITIES TO IMPROVE FUNCTIONAL PERFORMANCE), EACH [address] [facility] THERAPEUTIC PROCEDURE,1 OR MORE AREAS,EACH 15 MINUTES;NEUROMUSCULA R REEDUCATION OF MOVEMENT,BALANCE,CONVEYOR LINE BATTERY CHARGER RDINATION,KINESTHETI C SENSE,POSTURE,AND/OR PROPRIOCEPTION FOR SITTING AND/OR STANDING ACTIVITIES [facility] THERAPEUTIC ACTIVITIES, DIRECT (ONE-ON-ONE) PATIENT CONTACT (USE OF DYNAMIC ACTIVITIES TO IMPROVE FUNCTIONAL PERFORMANCE), EACH [address] [facility] THERAPEUTIC PROCEDURE, 1 OR MORE AREAS, EACH 15 MINUTES; THERAPEUTIC EXERCISES TO DEVELOP STRENGTH AND ENDURANCE, RANGE OF MOTION AND FLEXIBILITY [facility] PHYSICAL THERAPY EVALUATION [facility] OPEN TREATMENT OF TRIMALLEOLAR ANKLE FRACTURE, INCLUDES INTERNAL FIXATION, WHEN PERFORMED, MEDIAL AND/OR LATERAL MALLEOLUS; WITHOUT FIXATION OF POSTERIOR LIP [facility] CYSTOURETHROSCOPY, WITH REMOVAL OF FOREIGN BODY, CALCULUS, OR URETERAL STENT FROM URETHRA OR BLADDER (SEPARATE PROCEDURE); SIMPLE [facility] RINGERS LACTATE INFUSION, UP TO [address] [facility] EDUCATIONAL SUPPLIES, SUCH BOOKS, TAPES, AND PAMPHLETS, FOR THE PATIENT'S EDUCATION AT COST TO PHYSICIAN OR OTHER QUALIFIED HEALTH DRUM TENDER [facility] INDIVIDUAL PSYCHOTHER, INTERACT, PLAY EQUIP, PHYS DEVICES, POULTRY PICKER/OTH [facility] AN INPAT HOSP, PART HOSP/RESIDENT CARE, APPROX 20-30 MIN [id number] W PAT; W MED E&M SER 001 DoD UNLISTED PROCEDURE, BREAST 001 DoD OPHTHALMOLOGICAL SERVICES: MEDICAL EXAMINATION AND EVALUATION, WITH INITIATION OR CONTINUATION OF DIAGNOSTIC AND TREATMENT PROGRAM; INTERMEDIATE, ESTABLISHED PATIENT 001 [facility] LOWER GI SERIES 998 DoD INSERTION OF OTHER (NASO-)GASTRIC TUBE 998 DoD DIAGNOSTIC ULTRASOUND OF DIGESTIVE SYSTEM 998 DoD INTRAVENOUS PYELOGRAM 998 DoD TELE ASSESS & MGT SRV PROV QUAL NONPHYS HLTH CARE PRO TO EST PAT,PARENT,GUARD NOT ORIG REL ASSESS & MGT SRV PROV W/IN PREV 7 DAYS NOR LEAD ASSESS & MGT SRV/PX W/IN NXT 24 HR/SOON APT;5-10 MIN MED DIS 021 DoD TELE ASSESS & MGT SRV PROV QUAL NONPHYS HLTH CARE PRO TO EST PAT,PARENT,GUARD NOT ORIG REL ASSESS & MGT SRV PROV W/IN PREV 7 DAYS NOR LEAD ASSESS & MGT SRV/PX W/IN NXT 24 HR/SOON APT;5-10 MIN MED DIS 021 DoD TELE ASSESS & MGT SRV PROV QUAL NONPHYS HLTH CARE PRO TO EST PAT,PARENT,GUARD NOT ORIG REL ASSESS & MGT SRV PROV W/IN PREV 7 DAYS NOR LEAD ASSESS & MGT SRV/PX W/IN NXT 24 HR/SOON APT;5-10 MIN MED DIS 021 DoD TELE ASSESS & MGT SRV PROV QUAL NONPHYS HLTH CARE PRO TO EST PAT,PARENT,GUARD NOT ORIG REL ASSESS & MGT SRV PROV W/IN PREV 7 DAYS NOR LEAD ASSESS & MGT SRV/PX W/IN NXT 24 HR/SOON APT;5-10 MIN MED DIS 021 DoD TELE ASSESS & MGT SRV PROV QUAL NONPHYS HLTH CARE PRO TO EST PAT,PARENT,GUARD NOT ORIG REL ASSESS & MGT SRV PROV W/IN PREV 7 DAYS NOR LEAD ASSESS & MGT SRV/PX W/IN NXT 24 HR/SOON APT;5-10 MIN MED DIS DoD WAIVER SERVICES; NOT OTHERWISE SPECIFIED (NOS) DoD QUALIFIED NONPHYSICIAN HEALTH DRUM TENDER ONLINE DIGITAL ASSESSMENT AND MANAGEMENT, FOR AN ESTABLISHED PATIENT, FOR UP TO 7 DAYS, CUMULATIVE TIME DURING THE 7 DAYS; 11-20 MINUTES DoD QUALIFIED NONPHYSICIAN HEALTH DRUM TENDER ONLINE DIGITAL ASSESSMENT AND MANAGEMENT, FOR AN ESTABLISHED PATIENT, FOR UP TO 7 DAYS, CUMULATIVE TIME DURING THE 7 DAYS; 11-20 MINUTES DoD TELE ASSESS & MGT SRV PROV QUAL NONPHYS HLTH CARE PRO TO EST PAT,PARENT,GUARD NOT ORIG REL ASSESS & MGT SRV PROV W/IN PREV 7 DAYS NOR LEAD ASSESS & MGT SRV/PX W/IN NXT 24 HR/SOON APT;5-[address] [facility] SCREENING PAPANICOLAOU SMEAR; OBTAINING, PREPARING AND CONVEYANCE OF CERVICAL OR VAGINAL SMEAR TO LABORATORY DoD TELE ASSESS & MGT SRV PROV [...] 018 DoD CASE MANAGEMENT, EACH 15 MINUTES DoD CASE MANAGEMENT, EACH 15 MINUTES DoD TELE ASSESS & MGT SRV [...] NXT 24H/SOON APT; 11-[address] [facility] COLORECTAL CANCER SCREENING; COLONOSCOPY ON INDIVIDUAL NOT MEETING CRITERIA FOR HIGH RISK DoD TELE ASSESS & MGT SRV PROV QUAL NONPHYS HLTH CARE PRO TO EST PAT,PARENT,GUARD NOT ORIG REL ASSESS & MGT SRV PROV W/IN PREV 7 DAYS NOR LEAD ASSESS & MGT SRV/PX W/IN NXT 24H/SOON APT; 21-[address] [facility] OPHTHALMOLOGICAL SERVICES: MEDICAL EXAMINATION AND EVALUATION WITH INITIATION OF DIAGNOSTIC AND TREATMENT PROGRAM; COMPREHENSIVE, NEW PATIENT, 1 OR MORE VISITS DoD TELE ASSESS & MGT SRV PROV QUAL NONPHYS HLTH CARE PRO TO EST PAT,PARENT,GUARD NOT ORIG REL ASSESS & MGT SRV PROV W/IN PREV 7 DAYS NOR LEAD ASSESS & MGT SRV/PX W/IN NXT 24 HR/SOON APT;5-[address] [facility] URINE TEST, BY VISUAL COLOR COMPARISON METHODS [facility] MEDICATION THERAPY MGT SERVICE(S) PROVIDED,A PHARMACISTBARBARA,KIRAN E-TO-FACE W PATIENT,WITH ASSESS & INTERVENE IF PROVIDED;EA ADDITION 15 MINUTES (LIST SEPARATELY IN ADDITION TO CODE FOR PRIM SERVICE) [facility] MEDICATION THERAPY MANAGEMENT SERVICE(S) PROVIDED BY A PHARMACIST, INDIVIDUAL, [id number] WITH PATIENT, WITH ASSESSMENT AND INTERVENTION IF PROVIDED; INITIAL 15 MINUTES, ESTABLISHED PATIENT [facility] MEDICATION THERAPY MGT SERVICE(S) PROVIDED,A PHARMACISTBARBARA,KIRAN E-TO-FACE W PATIENT,WITH ASSESS & INTERVENE IF PROVIDED;EA ADDITION 15 MINUTES (LIST SEPARATELY IN ADDITION TO CODE FOR PRIM SERVICE) [facility] MEDICATION THERAPY MGT SERVICE(S) PROVIDED,A PHARMACIST,INDIV,FAC E-TO-FACE W PATIENT,WITH ASSESS & INTERVENE IF PROVIDED;EA ADDITION 15 MINUTES (LIST SEPARATELY IN ADDITION TO CODE FOR PRIM SERVICE) 011 [facility] SMOKING CESSATION CLASSES, NON-PHYSICIAN PROVIDER, PER SESSION [...] 010 DoD DETERMINATION OF REFRACTIVE STATE 010 [facility] DETERMINATION OF REFRACTIVE STATE 009 [facility] OPHTHALMOLOGICAL SERVICES: MEDICAL EXAMINATION AND EVALUATION, WITH INITIATION OR CONTINUATION OF DIAGNOSTIC AND TREATMENT PROGRAM; INTERMEDIATE, ESTABLISHED PATIENT 009 DoD DETERMINATION OF REFRACTIVE STATE 009 [facility] OPHTHALMIC ULTRASOUND, ECHOGRAPHY, DIAGNOSTIC; CORNEAL PACHYMETRY, UNILATERAL OR BILATERAL (DETERMINATION OF CORNEAL THICKNESS) 009 [facility] DETERMINATION OF REFRACTIVE STATE 009 [facility] Non-Physician Phone Call To Patient/Provider Brief (5-10min) Non-Physician Phone Call To Patient/Provider Brief (5-10min) [phone] SANDI ALDRIDGE Non-Physician Phone Call To Patient/Provider Brief (5-10min) Non-Physician Phone Call To Patient/Provider Brief (5-10min) [phone] [facility] Non-Physician Phone Call To Patient/Provider Brief (5-10min) Non-Physician Phone Call To Patient/Provider Brief (5-10min) [phone] [facility] Non-Physician Phone Call To Patient/Provider Brief (5-10min) Non-Physician Phone Call To Patient/Provider Brief (5-10min) [phone] [facility] Case Management, each 15 minutes [address] [facility] Case Management, each 15 minutes [address] [facility] Non-Physician Phone Call To Patient/Provider Brief (5-10min) Non-Physician Phone Call To Patient/Provider Brief (5-10min) [phone] [facility] Non-Physician Phone Call To Patient/Provider Brief (5-10min) Non-Physician Phone Call To Patient/Provider Brief (5-10min) [phone] [facility] Non-Physician Phone Call To Patient/Provider Brief (5-10min) Non-Physician Phone Call To Patient/Provider Brief (5-10min) [phone] [facility] Non-Physician Phone Call To Patient/Provider Brief (5-10min) Non-Physician Phone Call To Patient/Provider Brief (5-10min) [phone] [facility] Non-Physician Phone Call To Patient/Provider Brief (5-10min) Non-Physician Phone Call To Patient/Provider Brief (5-10min) [phone] [facility] Non-Physician Phone Call To Patient/Provider Brief (5-10min) Non-Physician Phone Call To Patient/Provider Brief (5-10min) [phone] [facility] Non-Physician Phone Call To Pt/Provider Intermed (11-20 min) Non-Physician Phone Call To Pt/Provider Intermed (11-20 min) [phone] [facility] Colorectal cancer screening; colonoscopy on individual not meeting criteria for high risk [address] [facility] Non-Physician Phone Call To Pt/Provider Lengthy (21-30 min) Non-Physician Phone Call To Pt/Provider Lengthy (21-30 min) [phone] [facility] Ophthalmological New Patient Start Comprehensive Care Ophthalmological New Patient Start Comprehensive Care [phone] [facility] Determination Of Refractive State Determination Of Refractive State [id number] [facility] Endometrial Biopsy By Suction Endometrial Biopsy By Suction [phone] [facility] Non-Physician Phone Call To Patient/Provider Brief (5-10min) Non-Physician Phone Call To Patient/Provider Brief (5-10min) [phone] [facility] Test Test [phone] [facility] Medication Management By Pharmacist Each Additional 15 Min Medication Management By Pharmacist Each Additional 15 Min [id number] [facility] Med Management By Pharmacist Initial 15 Min Estab Patient Med Management By Pharmacist Initial 15 Min Estab Patient [phone] [facility] Med Management By Pharmacist Initial 15 Min Estab Patient Med Management By Pharmacist Initial 15 Min Estab Patient [phone] [facility] Medication Management By Pharmacist Each Additional 15 Min Medication Management By Pharmacist Each Additional 15 Min [phone] [facility] Med Management By Pharmacist Initial 15 Min Estab Patient Med Management By Pharmacist Initial 15 Min Estab Patient [phone] [facility] Medication Management By Pharmacist Each Additional 15 Min Medication Management By Pharmacist Each Additional 15 Min [phone] [facility] Med Management By Pharmacist Initial 15 Min Estab Patient Med Management By Pharmacist Initial 15 Min Estab Patient [phone] [facility] Smoking ce ation cla es, non-physician provider, per se ion [address] [facility] Medication Management By Pharmacist Each Additional 15 Min Medication Management By Pharmacist Each Additional 15 Min [id number] [facility] Med Management By Pharmacist Initial 15 Min New Patient Med Management By Pharmacist Initial 15 Min New Patient [phone] [facility] Non-Physician Phone Call To Patient/Provider Brief (5-10min) Non-Physician Phone Call To Patient/Provider Brief (5-10min) [phone] [facility] Non-Physician Phone Call To Patient/Provider Brief (5-10min) Non-Physician Phone Call To Patient/Provider Brief (5-10min) [phone] ANGUS EUGENE Ophthalmological Prior Patient Start Intermediate Level Care Ophthalmological Prior Patient Start Intermediate Level Care [phone] JACK AVITIA Determination Of Refractive State Determination Of Refractive State 010 JACK AVITIA Osteopathic Manip Treatment (OMT) 1-2 Body Regions Involved Osteopathic Manip Treatment (OMT) 1-2 Body Regions Involved [phone] STACY PAZ Acupunct One Or More [place] W/O Stimulation Initial 15 Min Acupunct One Or More [place] W/O Stimulation Initial 15 Min [phone] JORDAN LANGE Screening papanicolaou smear; obtaining, preparing and conveyance of cervical or vaginal smear to laboratory [address] [facility] Determination Of Refractive State Determination Of Refractive State 27146 010 MARC VICTOR Ophthalmological Prior Patient Start Intermediate Level Care Ophthalmological Prior Patient Start Intermediate Level Care 81215 010 MARC VICTOR Determination Of Refractive State Determination Of Refractive State 44955 009 MARC VICTOR Ophthalmological Prior Patient Start Intermediate Level Care Ophthalmological Prior Patient Start Intermediate Level Care 62090 009 MARC VICTOR Ophthalmological Prior Patient Start Intermediate Level Care Ophthalmological Prior Patient Start Intermediate Level Care 92877 009 MARC VICTOR Determination Of Refractive State Determination Of Refractive State 74104 009 NISREEN ARIZA Ophthalmological Prior Patient Start Comprehensive Care Ophthalmological Prior Patient Start Comprehensive Care 45701 009 NISREEN ARIZA Determination Of Refractive State Determination Of Refractive State 94908 009 RINA ALEXANDER Ophthalmological Prior Patient Start Intermediate Level Care Ophthalmological Prior Patient Start Intermediate Level Care 20372 009 RINA ALEXANDER Postoperative Visit, Without Charge Postoperative Visit, Without Charge 07198 009 BANG CHATMAN Photorefractive keratectomy (PRK) 009 BANG CHATMAN Ophthalmological Prior Patient Start Intermediate Level Care Ophthalmological Prior Patient Start Intermediate Level Care [address].-Supervised Group Educational Services 009 BANG CHATMAN Determination Of Refractive State Determination Of Refractive State 91699 009 ROLES, RINA Pena Corneal Pachymetry Corneal Pachymetry 40042 23/12 009 ROLESRINA External Ocular Photography External Ocular Photography 03252 009 ROLESRINA Diagnostic Imaging Ocular Coherence Topography 009 ROLES, RINA Pena Computerized Corneal Topography Computerized Corneal Topography 60969 009 ROLESRINA Ophthalmological New Patient Start Comprehensive Care Ophthalmological New Patient Start Comprehensive Care 29091 009 ROLES, RINA Pena Determination Of Refractive State Determination Of Refractive State 00178 009 MARC VICTOR Corneal Pachymetry, Bilateral With Interpret And Report Corneal Pachymetry, Bilateral With Interpret And Report 83744 009 MARC VICTOR Computerized Corneal Topography Computerized Corneal Topography 87886 009 MARC VICTOR Ophthalmological Prior Patient Start Comprehensive Care Ophthalmological Prior Patient Start Comprehensive Care 49118 009 MARC VICTOR Determination Of Refractive State Determination Of Refractive State 29417 009 MARC VICTOR Ophthalmological New Patient Start Comprehensive Care Ophthalmological New Patient Start Comprehensive Care [address] [facility] Oral Surgery Tooth Extraction Oral Surgery Tooth Extraction 85815 008 ISAI PASCUAL 1984-wisdom teeth removed [facility] Laparoscopy With Excision Of Ectopic Laparoscopy With Excision Of Ectopic [address] [facility] Treatment Of The Ankle Treatment Of The Ankle 68919 ISAI PASCUAL Pt reports ankle surgery x2 in 2002 [facility] Tonsillectomy Tonsillectomy [address] [facility] Abdominal / Peritoneal Surgery Abdominal / Peritoneal Surgery [address] [facility] Spectacles Services Fitting Monofocals (Not For Aphakia) Spectacles Services Fitting Monofocals (Not For Aphakia) [address] [facility] Determination Of Refractive State Determination Of Refractive State [address] [facility] Ophthalmological Prior Patient Start Comprehensive Care Ophthalmological Prior Patient Start Comprehensive Care [address] [facility] Whole Body Integumentary Photography, Physician Request Whole Body Integumentary Photography, Physician Request [id number] 008 ZULLY RAM [facility] Gynecologic Surgery Gynecologic Surgery 47700 0 008 ISAI PASCUAL urine leakage surgery [facility] Whole Body Integumentary Photography, Physician Request Whole Body Integumentary Photography, Physician Request 51803 008 YO [facility] Whole Body Integumentary Photography, Physician Request Whole Body Integumentary Photography, Physician Request 60194 007 YO [facility] Supervised Injection Intramuscular Supervised Injection Intramuscular [address] [facility] Screening papanicolaou smear; obtaining, preparing and conveyance of cervical or vaginal smear to laboratory [address] [facility] Determination Of Refractive State Determination Of Refractive State [phone] [facility] Spectacles Services Fitting Monofocals (Not For Aphakia) Spectacles Services Fitting Monofocals (Not For Aphakia) 78593 [address] [facility] Ophthalmological New Patient Start Comprehensive Care Ophthalmological New Patient Start Comprehensive Care [phone] [facility] Screening papanicolaou smear; obtaining, preparing and conveyance of cervical or vaginal smear to laboratory RAS DAVALOS [facility] Non-Physician Phone Call To Patient/Provider Brief (5-10min) Non-Physician Phone Call To Patient/Provider Brief (5-10min) [id number] [facility] Waiver services; not otherwise specified (NOS) SHARMAINE SARMIENTO [facility] Social History Combined list of available smoking, [...] section is an empty social history section. [facility] Assessment and Plan Combined list of future [...] tab(s), 0 total refill(s), Acute, 04/15/2025, Pharmacy: [facility], Urinary, complicated UTI/pyelonephritis [Not filled] Urinalysis [...] pharmaceutical intervention Ordered: Referral Request 2.0 - [facility] 8. V accination given Pneumovax given in office today. See Tech's Note. Orders: aspirin(aspirin 81 mg oral capsule), 1 cap(s), Oral, every 24 hr, # 90 cap(s), 2 total refill(s), Maintenance, Pharmacy: [facility] [Federal Rx: #90 last filled 04/10/25] atorvastatin(atorvastatin 40 mg oral tablet), 1 tab(s), Oral, Daily, for cholesterol, # 90 tab(s), 2 total refill(s), Maintenance, Pharmacy: [facility] [Federal Rx: #90 last filled 04/10/25] cholecalciferol(cholecalcifer ol 50 mcg (2000 intl units) oral capsule), 1 cap(s), Oral, Daily, # 90 cap(s), 3 total refill(s), Maintenance, Pharmacy: [facility] [Not filled] clobetasol topical(clobetasol 0.05% topical cream), 1 appl(s), Topical, BID, # 60 g, 1 total refill(s), Maintenance, Pharmacy: [facility] [Federal Rx: #60 last filled 04/10/25] fluticasone nasal(fluticasone 50 mcg/inh nasal spray), 100 mcg, Nostril-Both, Daily, # 48 g, 3 total refill(s), Maintenance, Pharmacy: [facility] [Federal Rx: #48 last filled 04/10/25] omeprazole(omeprazole 20 mg oral delayed release capsule), 1 cap(s), Oral, BID(AC), 30 to 60 minutes before meal, # 180 cap(s), 3 total refill(s), Maintenance, Pharmacy: [facility] [Federal Rx: #180 last filled 04/10/25] propranolol(propranolol 80 mg oral tablet), 1 tab(s), Oral, BID, # 180 tab(s), 2 total refill(s), Maintenance, Pharmacy: [facility] [Federal Rx: #180 last filled 04/10/25] Susan Rosa DO, [facility], [facility] Resident Provider Addendum by CRISTINO MONDRAGON MD, [...] ordering provider. Cristino Mondragon MD Extracted from:Title: 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 Note Author: ALEXSANDRA DICK, KAM, Women's Health Date: 11/29/24 1. O steopenia R eviewed T-score and Frax risk percentage. Osteopenia. Discussed recommended fall prevention measures, continue with adequate daily calcium and Vitamin D. Rpt in 3 to 5 yrs, sooner if changes in risk factors. Pt v/u and agrees. 2. N icotine dependence E ncouraged smoking cessation Alexsandra Dick, [place], [facility] Women s Health Nurse Practitioner, Board Certified [address] [place] [address] [employer] [address] [place] [address] comm: Extracted from:Title: FM- med refill Author: CANDY ESCALONA MD Date: 07/13/24 1. O ther disorders of bone density and structure I contacted the patient for medication refill - requesting Ca Carbonate 600mg and cholecalciferol 50mcg daily refilled. No concerns on the medications. Will follow at next well visit for hx of osteopenia. -Both meds refilled Maj RAZA USAF, MD [facility], PGY-3 Orders: calcium carbonate(calcium carbonate 1,500 mg (elemental Ca 600 mg) oral tab), 600 mg, Oral, Daily, # 90 tab(s), 3 total refill(s), Maintenance, 600 mg Oral Daily, Pharmacy: [facility] [Not filled] cholecalciferol(cholecalcifer ol 50 mcg (2000 intl units) oral capsule), 1 cap(s), Oral, Daily, # 90 cap(s), 3 total refill(s), Maintenance, 1 cap(s) Oral Daily, Pharmacy: [facility] [Not filled] Addendum by ASIA PAVON [...] by the ordering provider. DO Jacques Rhoades [facility] Family [facility] Physician Extracted from:Title: 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 Note Author: ALEXSANDRA DICK [...] symptoms. Pt v/u and agrees. SALVADOR Cardoza, [facility] Women s Health Nurse Practitioner, Board Certified [address] [place] [address] [employer] [address] [place] [address] comm: Extracted from:Title: 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 Note Author: ALEXSANDRA DICK, OFFICE RUNNER Date: 05/22/24 1. E ncounter for gynecological [...] measures. 7. N icotine dependence Encouraged cessation. [facility] recommended Reviewed with patient discharge instructions. Written discharge instructions were provided to the patient. Recommended patient to follow up regularly for WWEs, s ooner as discussed above, or as needed for WH concerns, symptoms, or questions. Alexsandra Dick, [facility], [facility] Women s Health Nurse Practitioner, Board Certified [address] [place] [address] [employer] [address] [address] comm: Extracted from:Title: [facility]- UTI Author: ASIA PAVON MD Date: 04/25/24 [...] Asia Pavon DO Family Medicine Faculty Physician [address] [place] [address], [facility] Danilo [facility] Extracted from:Title: FM - lab f/u [...] 1 cap(s) Oral every 24 hr, Pharmacy: [facility] [Not filled] atorvastatin(atorvastatin 40 mg oral tablet), 1 tab(s), Oral, Daily, for cholesterol, # 90 tab(s), 2 total refill(s), Maintenance, 1 tab(s) Oral Daily,Instr:for cholesterol, Pharmacy: [facility] [Not filled] omeprazole(omeprazole 20 mg oral delayed release tablet), 1 tab(s), Oral, BID, before a meal, # 180 tab(s), 1 total refill(s), Maintenance, 1 tab(s) Oral BID,Instr:before a meal, Pharmacy: [facility] [Not filled] propranolol(propranolol 80 mg oral tablet), 1 tab(s), Oral, BID, # 180 tab(s), 2 total refill(s), Maintenance, 1 tab(s) Oral BID, Pharmacy: [facility] [Not filled] Addendum by DELON BAIN [...] -Referral placed Ordered: Referral Request 2.0 - [facility] 4. E czema Clobetasol order refilled Ordered: [...] up follow up Ordered: Albumin, Random Ur [id number] Creatinine, Urine Microalbumin Panel, Urine 6. G [...] CBC w/ Diff Ferritin Iron and TIBC [id number] Thyroid Stimulating Hormone Addendum by TRAVIS DORSEY [...] Scheduled TestsRadiologyCT Low Dose Lung Screening 04/21/25 05/12/2025 [id number] Assessment and Plan Extracted from:Title : [...] 90 cap(s), 2 total refill(s), Maintenance, Pharmacy: [facility] [Federal Rx: #90 last filled 04/10/25] atorvastatin(atorvastatin 40 mg oral tablet), 1 tab(s), Oral, Daily, for cholesterol, # 90 tab(s), 2 total refill(s), Maintenance, Pharmacy: [facility] [Federal Rx: #90 last filled 04/10/25] cholecalciferol(cholecalcifer ol 50 mcg (2000 intl units) oral capsule), 1 cap(s), Oral, Daily, # 90 cap(s), 3 total refill(s), Maintenance, Pharmacy: [facility] [Not filled] clobetasol topical(clobetasol 0.05% topical cream), 1 appl(s), Topical, BID, # 60 g, 1 total refill(s), Maintenance, Pharmacy: [facility] [Federal Rx: #60 last filled 04/10/25] fluticasone nasal(fluticasone 50 mcg/inh nasal spray), 100 mcg, Nostril-Both, Daily, # 48 g, 3 total refill(s), Maintenance, Pharmacy: [facility] [Federal Rx: #48 last filled 04/10/25] omeprazole(omeprazole 20 mg oral delayed release capsule), 1 cap(s), Oral, BID(AC), 30 to 60 minutes before meal, # 180 cap(s), 3 total refill(s), Maintenance, Pharmacy: [facility] [Federal Rx: #180 last filled 04/10/25] propranolol(propranolol 80 mg oral tablet), 1 tab(s), Oral, BID, # 180 tab(s), 2 total refill(s), Maintenance, Pharmacy: [facility] [Federal Rx: #180 last filled 04/10/25] Susan Rosa DO, CAPT, [facility] Resident Provider Addendum by CRISTINO MONDRAGON MD, [...] ordering provider. Cristino Mondragon MD Extracted from:Title: 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 Note Author: ALEXSANDRA DICK NP, Women's Health Date: 11/29/24 1. O steopenia R eviewed T-score and Frax risk percentage. Osteopenia. Discussed recommended fall prevention measures, continue with adequate daily calcium and Vitamin D. Rpt in 3 to 5 yrs, sooner if changes in risk factors. Pt v/u and agrees. 2. N icotine dependence E ncouraged smoking cessation SALVADOR Cardoza, [facility] Women s Health Nurse Practitioner, Board Certified [address] [place] [address] [employer] [address] [place] [address] comm: Extracted from:Title: FM- med refill Author: CANDY ESCALONA MD Date: 07/13/24 1. O ther disorders of bone density and structure I contacted the patient for medication refill - requesting Ca Carbonate 600mg and cholecalciferol 50mcg daily refilled. No concerns on the medications. Will follow at next well visit for hx of osteopenia. -Both meds refilled Maj LUZ MARINA, [facility] Carrasco [facility] Family Medicine, PGY-3 Orders: calcium carbonate(calcium [...] by the ordering provider. DO Jacques Rhoades [facility], Family Medicine Physician Extracted from:Title: 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 Note Author: ALEXSANDRA DICK [...] v/u and agrees. Alexsandra Sumner. SALVADOR Dick [facility] Women s Health Nurse Practitioner, Board Certified [address] [place] [address] [employer] [address] [place] [address] comm: Extracted from:Title: 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 Note Author: ALEXSANDRA DICK NP [...] measures. 7. N icotine dependence Encouraged cessation. [facility] recommended Reviewed with patient discharge instructions. Written discharge instructions were provided to the patient. Recommended patient to follow up regularly for WWEs, s ooner as discussed above, or as needed for WH concerns, symptoms, or questions. Alexsandra Dick, [facility], [facility] Women s Health Nurse Practitioner, Board Certified [address] [place] [address] [employer] [address] [place] [address] comm: Extracted from:Title: [facility]- UTI Author: ASIA PAVON MD Date: 04/25/24 [...] Asia Pavon DO Family Medicine Faculty Physician [address] [place] [address], [facility] Danilo DESAI Extracted from:Title: FM - lab [...] for fatigue if needed. Maj LUZ MARINA, [facility], PGY-2 Orders: aspirin(aspirin [...] up follow up Ordered: Albumin, Random Ur [id number] Creatinine, Urine Microalbumin Panel, Urine 6. G [...] CBC w/ Diff Ferritin Iron and TIBC [id number] Thyroid Stimulating Hormone Addendum by TRAVIS DORSEY [...] Scheduled TestsRadiologyCT Low Dose Lung Screening 04/21/25 05/12/2025 [id number] [facility] Assessment and Plan Extracted from:Title [...] tab(s), 0 total refill(s), Acute, 04/15/2025, Pharmacy: [facility], Urinary, complicated UTI/pyelonephritis [Not filled] Urinalysis [...] 90 cap(s), 2 total refill(s), Maintenance, Pharmacy: [facility] [Federal Rx: #90 last filled 04/10/25] atorvastatin(atorvastatin 40 mg oral tablet), 1 tab(s), Oral, Daily, for cholesterol, # 90 tab(s), 2 total refill(s), Maintenance, Pharmacy: [facility] [Federal Rx: #90 last filled 04/10/25] cholecalciferol(cholecalcifer ol 50 mcg (2000 intl units) oral capsule), 1 cap(s), Oral, Daily, # 90 cap(s), 3 total refill(s), Maintenance, Pharmacy: [facility] [Not filled] clobetasol topical(clobetasol 0.05% topical cream), 1 appl(s), Topical, BID, # 60 g, 1 total refill(s), Maintenance, Pharmacy: [facility] [Federal Rx: #60 last filled 04/10/25] fluticasone nasal(fluticasone 50 mcg/inh nasal spray), 100 mcg, Nostril-Both, Daily, # 48 g, 3 total refill(s), Maintenance, Pharmacy: [facility] [Federal Rx: #48 last filled 04/10/25] omeprazole(omeprazole 20 mg oral delayed release capsule), 1 cap(s), Oral, BID(AC), 30 to 60 minutes before meal, # 180 cap(s), 3 total refill(s), Maintenance, Pharmacy: [facility] [Federal Rx: #180 last filled 04/10/25] propranolol(propranolol 80 mg oral tablet), 1 tab(s), Oral, BID, # 180 tab(s), 2 total refill(s), Maintenance, Pharmacy: [facility] [Federal Rx: #180 last filled 04/10/25] Susan Rosa DO, [facility], [facility] Resident Provider Addendum by CRISTINO MONDRAGON MD, [...] ordering provider. Cristino Mondragon MD Extracted from:Title: 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 Note Author: ALEXSANDRA DICK NP, Women's Health Date: 11/29/24 1. O steopenia R renaewed T-score and Frax risk percentage. Osteopenia. Discussed recommended fall prevention measures, continue with adequate daily calcium and Vitamin D. Rpt in 3 to 5 yrs, sooner if changes in risk factors. Pt v/u and agrees. 2. N icotine dependence E ncouraged smoking cessation SALVADOR Cardoza, [facility] Women s Health Nurse Practitioner, Board Certified [address] [place] [address] [address] [place] [id number] comm: Extracted from:Title: FM- med refill Author: CANDY ESCALONA MD Date: 07/13/24 1. O ther disorders of bone density and structure I contacted the patient for medication refill - requesting Ca Carbonate 600mg and cholecalciferol 50mcg daily refilled. No concerns on the medications. Will follow at next well visit for hx of osteopenia. -Both meds refilled Maj RAZA [employer]F, MD [place] [facility], PGY-3 Orders: calcium carbonate(calcium carbonate 1,500 mg (elemental Ca 600 mg) oral tab), 600 mg, Oral, Daily, # 90 tab(s), 3 total refill(s), Maintenance, 600 mg Oral Daily, Pharmacy: [facility] [Not filled] cholecalciferol(cholecalcifer ol 50 mcg [...] USAF, Family Medicine Physician Extracted from:Title: 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 Note Author: ALEXSANDRA DICK [...] symptoms. Pt v/u and agrees. SALVADOR Cardoza, [facility] Women s Health Nurse Practitioner, Board Certified [address] [place] [address] [employer] [address] [place] [address] comm: Extracted from:Title: 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 Note Author: ALEXSANDRA DICK, OFFICE RUNNER Date: 05/22/24 1. E ncounter for gynecological [...] measures. 7. N icotine dependence Encouraged cessation. [facility] recommended Reviewed with patient discharge instructions. Written discharge instructions were provided to the patient. Recommended patient to follow up regularly for WWMelissa, s triciaoner as discussed above, or as needed for WH concerns, symptoms, or questions. Alexsandra Dick, [facility], [facility] Women s Health Nurse Practitioner, Board Certified [address] [place] [address] [address] [place] [address] comm: Extracted from:Title: [facility]- UTI Author: ASIA PAVON MD Date: 04/25/24 [...] Asia Pavon DO Family Medicine Faculty Physician [address] [place] [address], [facility] Extracted from:Title: FM - lab f/u Author: [...] for fatigue if needed. CANDY ESCALONA, , RUSTF, MD [employer] Family Medicine, PGY-2 Orders: aspirin(aspirin 81 mg oral capsule), 1 cap(s), Oral, every 24 hr, # 90 cap(s), 2 total refill(s), Maintenance, 1 cap(s) Oral every 24 hr, Pharmacy: [facility] [Not filled] atorvastatin(atorvastatin 40 mg oral tablet), 1 tab(s), Oral, Daily, for cholesterol, # 90 tab(s), 2 total refill(s), Maintenance, 1 tab(s) Oral Daily,Instr:for cholesterol, Pharmacy: [facility] [Not filled] omeprazole(omeprazole 20 mg oral delayed release tablet), 1 tab(s), Oral, BID, before a meal, # 180 tab(s), 1 total refill(s), Maintenance, 1 tab(s) Oral BID,Instr:before a meal, Pharmacy: [facility] [Not filled] propranolol(propranolol 80 mg oral tablet), 1 tab(s), Oral, BID, # 180 tab(s), 2 total refill(s), Maintenance, 1 tab(s) Oral BID, Pharmacy: [facility] [Not filled] Addendum by DELON BAIN [...] up follow up Ordered: Albumin, Random Ur [id number] Creatinine, Urine Microalbumin Panel, Urine 6. G [...] CBC w/ Diff Ferritin Iron and TIBC [id number] Thyroid Stimulating Hormone Addendum by TRAVIS DORSEY [...] Scheduled TestsRadiologyCT Low Dose Lung Screening 04/21/25 05/12/2025 Unknown Organization Functional Status Combined list of recent functional and cognitive assessments recorded at [employer] and [employer] (VA).VA Functional [place] Measurement (FIM) Scale: 1 = Total Assistance (Subject = 0% +), 2 = Maximal Assistance (Subject = 25% +), 3 = Moderate Assistance (Subject = 50% +), 4 = Minimal Assistance (Subject = 75% +), 5 = Supervision, 6 = Modified [place] (Device), 7 = Complete [place] (Timely, Safely). Assessment Date/Time Source Assessment Type Assessment Skill Assessment Score Assessment Details No data available for this section
--- NOTE | 2025-05-12 06:02 | WPDHPUPDATE1 ---
History and Physical Update Update Date/Time: 05/12/25 06:02 History and Physical has been reviewed, including an updated exam of the patient. There are NO changes in the patient's condition. Risks, benefits, and alternatives have been discussed and questions answered. Patient agrees to proceed with procedure.
--- NOTE | 2025-05-12 07:08 | SUR.PREOP ---
[id number]. Parres here to talk to pt on arrival from [facility], procedure cancelled, antibiotics and f/u instructions given to pt prior to discharge.
== END 2025-05-12 06:32 | disposition home or self-care (01) ==
PROVIDERS: Visit Provider Urology
PROC: (CPT 50590; principal; 2025-05-12 07:30)
DX: N20.0 Calculus of kidney (principal); R82.71 Bacteriuria; Z53.09 Procedure and treatment not carried out because of other contraindication
CPT/HCPCS: 74018; 99211; G0463; J2250; J3010

== ENCOUNTER 2025-05-23 15:55 | Outpatient (CLI) | payer OTHER, SELFPAY ==
--- OUTSIDE RECORDS SUMMARY | 2025-05-23 15:59 | XMS_ITS | Continuity of Care Document ---
Author Organization [facility] Address [address] [place] [address] Phone Care Team Providers Care Manager Ambulatory Name Role Phone Zeeshan Earl PA-C Unavailable [...] Copied on Encounter OFFICE/OUTPAT IENT VISIT, EST [facility], [address] [place], [id number], [place] tel:[phone] [facility] cold symptoms (chief complaint) Suspected exposure to other viral communicable diseaseSinusitis [address]ers. [address] [place] [address], [address], [place]. tel:[phone] Referring Provider: Zeeshan Earl, [address] [place] [address], [address]. tel:[phone] OFFICE/OUTPAT IENT VISIT, [facility], [address] [place] [address], [id number], tel:[phone] [facility] Encounter for screening for other viral diseases 0 Mady Byers. [address] [place] [address], [address], [place]. tel:[phone] Referring Provider: Zeeshan Earl, [address] [place] [address], [address]. tel:[phone] OFFICE/OUTPAT IENT VISIT, [facility], [address] [place] [address], [id number], [place] tel:[phone] [facility] covid exposure (chief complaint) Encounter for screening for other viral disease 0 Mady Byers. [address] [place] [address], [address], [place]. tel:[phone] Referring Provider: Zeeshan Earl, [address] [place] [address], [address]. tel:[phone] Family History Family Member Type Diagnosis Age At Onset No Information Payers Payer name Insurance type Covered constitution party ID Alonso lakhani(sAyse Sorensen [facility] [id number] CI [id number] Social History Type Description Quantity Date Captured [...] day quarantine. 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 Patient Care Teams Name Effective Dates (start - stop) Status Members No Information
--- OUTSIDE RECORDS SUMMARY | 2025-05-23 15:59 | XMS_ITS | Clinical Summary ---
Author Organization [facility] Address [address] [place] [address] Care Team Providers Care Engineer Specialist Name Role Phone [address] Primary Care Prov ider Source Comments [facility],non-owned Affiliates and Associated Physician Practices is amultiple site organization consisting of ambulatory clinics and hospital sitesin [place], [place], [place] and [place]. This disclosure is being madepursuant to the Care Everywhere program and may not contain all information available regarding this patient. Last updated 18.[facility] Allergies No known active allergies Medications * [...] Relation Name Comments Hypertension Mother Cancer Other [place] Other Relation Name Status Comments Mother Other [...] on file Legal Sex Female 2:04 PM CRAB FISHERMAN Gender Identity Not on file Sexual Orientation Not on file Last Filed Vital Signs Vital Sign Reading Time Taken Comments Blood Pressure 114/62 09/02/2012 12:56 PM CRAB FISHERMAN Pulse 89 09/02/2012 12:56 PM CRAB FISHERMAN Temperature 36.9 C (98.4 F) 09/02/2012 12:56 PM CRAB FISHERMAN Respiratory Rate 20 09/02/2012 12:56 PM CRAB FISHERMAN Oxygen Saturation 97% 09/02/2012 12:56 PM CRAB FISHERMAN Inhaled Oxygen Concentration - - Weight 83.9 kg (185 lb) 09/01/2012 7:20 AM CRAB FISHERMAN Height 170.2 cm (5' 7) 09/01/2012 7:20 AM CRAB FISHERMAN Body Mass Index 28.98 09/01/2012 7:20 AM CRAB FISHERMAN Plan of Treatment Health Maintenance Due Date [...] 8:35 AM 09/01/2012 11:54 AM Care Teams Engineer Specialist Relationship Specialty Start Date End Date [facility] [address] [place], [place] [address] PCP - General 09/27/19
--- OUTSIDE RECORDS SUMMARY | 2025-05-23 16:00 | XMS_ITS | Referral Summary ---
Author Organization [address] Address [address] [place] [id number] Care Team Providers Care Cloth Shrinking Supervisor Name Role Phone Radha Fermin Primary Care Provider [phone] Allergies No known active allergies Medications aspirin [...] on file Legal Sex Female 8:04 PM GENERAL ASSEMBLER INSTALLER Gender Identity Not on file Sexual Orientation [...] MAMMOGRAM BILATERAL W THEO 11/07/2019 3:26 PM GENERAL ASSEMBLER INSTALLER from Last 3 Months or Most Recently Relevant to Health Maintenance Results * Screening Mammogram Bilateral W Theo (11/07/2019 3:26 PM GENERAL ASSEMBLER INSTALLER) Anatomical Region Laterality Modality Breast Bilateral Mammography 11/07/2019 3:49 PM GENERAL ASSEMBLER INSTALLER Narrative 11/11/2019 8:09 AM GENERAL ASSEMBLER INSTALLER Patient Name: CHALINO AUSTIN Dr: Yanique Walker CNP, D.O.B: 1965 Exam Date: 11/07/19 1526 Age: 54 Sex: Female MR#: [id number] Loc: [facility]#: [id number] RADIOLOGY REPORT Order #[id number] [facility] Marisol Bilat Screening 3D Signed - MG [...] made to exam dated: 02/16/2018 mammogram - Edward. BREAST TISSUE: There are scattered areas of [...] age 40, based on guidelines of the [place] [employer] (ACR Practice Parameter for the Performance of Screening and Diagnostic Mammography) and [place] [employer]. For women with an elevated risk of breast cancer, please refer to the ACR Practice Parameter for specific screening recommendations. The patient will be entered into a reminder system with a target due date of 1 year for her next screening exam. Electronically signed by: Julian Hastings rl/[email or web address]:11/11/2019 08:09:38 Technical Support Specialist: Crys URIBE (Perfecto)(Krzysztof), [facility] letter sent: Normal Exam Reading location: BI-RADS: 2 Benign REPORT ELECTRONICALLY SIGNED IN OTHER VENDOR SYSTEM Resulting Agency Comment O Procedure Note Julian Toro MD - 11/11/2019 Patient Name: CHALINO AUSTIN Dr: Yanique Walker CNPOGonzalezB: 1965 Exam Date: 11/07/19 1526 Age: 54 Sex: Female MR#: [id number] Loc: RADIOLOGY REPORT Order #[id number] [facility] Marisol Bilat Screening 3D Signed - MG [...] is made to exam dated: 02/16/2018 mammogram -Edward. BREAST TISSUE: There are scattered areas of [...] age 40, based on guidelines of the [place] [employer] (ACR Practice Parameter for the Performance of Screening and Diagnostic Mammography) and [place] [employer]. For women with an elevated risk of breast cancer, pleaserefer to the ACR Practice Parameter for specific screening recommendations. The patient will be entered into a reminder system with a target due dateof 1 year for her next screening exam. Electronically signed by: Julian Hastings rl/[email or web address]:11/11/2019 08:09:38 Technical Support Specialist: Crys Kumar)(Krzysztof), [facility] letter sent: Normal Exam Reading location: BI-RADS: 2 Benign REPORT ELECTRONICALLY SIGNED IN OTHER VENDOR SYSTEM Yanique Walker DOCTOR OF NATUROPATHIC MEDICINE IMG MAMMO PROCEDURES Final Result from Last 3 Months or Most Recently Relevant to Health Maintenance Insurance [email or web address] [facility] Care Teams Cloth Shrinking Supervisor Relationship Specialty Start Date End Date Radha Fermin PA [address] [place] [address] PCP - General Physician Md Psychiatry 05/27/21
--- OUTSIDE RECORDS SUMMARY | 2025-05-23 16:00 | XMS_ITS | Clinical Summary ---
Author Organization [facility] Address [facility] [place] [address] Care Team Providers Care Collator Operator Name Role Phone Harley Campos MD Primary Care Provider [phone] Allergies No known active allergies Medications modafinil [...] CDT - 03/07/2025 7:30 AM CDT Emergency [facility] [place] [address] Laurel Schroeder MD Auer, Charles E, MD Skin Problem Discharge Disposition: Home or Self Care (Routine Discharge) 03/07/2025 Travel 03/04/2025 Results Follow-Up [facility] [address] [place] [address] Sandra Purdy MD CULTURE URINE 03/01/2025 2:48 PM CDT - 03/01/2025 3:20 PM CDT Hospital Encounter [facility] [place] [address] Dominga Cee DO Urinary Symptoms; Sinus Problem [...] Sex Assigned at Female 11/09/2024 10:20 AM CELLULAR PLASTICS CUTTER Legal Sex Female 4:33 PM CDT Gender [...] COMPREHENSIVE METABOLIC PANEL (03/07/2025 5:20 AM CDT) [facility] GLUCOSE 110(H) 70 - 99 MG/DL 03/07/2025 6:[address] [facility] BUN 19(H) 7 - 18 MG/DL 03/07/2025 6:[address] [facility] CREATININE S/P/B 0.62 0.55 - 1.02 MG/DL 03/07/2025 6:[address] [facility] SODIUM S/P/B 138 136 - 145 MMOL/L 03/07/2025 6:[address] [facility] POTASSIUM S/P/B 3.8 3.5 - 5.1 MMOL/L 03/07/2025 6:[address] [facility] CHLORIDE S/P/B 110 97 - 115 MMOL/L 03/07/2025 6:[address] [facility] CO2 21.4 21 - 32 MMOL/L 03/07/2025 6:[address] [facility] CALCIUM S/P/B 9.9 8.5 - 10.1 MG/DL 03/07/2025 6:[address] [facility] BILIRUBIN TOTAL S/P/B 0.4 0.2 - 1.2 MG/DL 03/07/2025 6:[address] [facility] Comment: THIS ASSAY IS NOT RECOMMENDED FOR PATIENTS UNDERGOING TREATMENT WITH ELTROMBOPAG DUE TO THE POTENTIAL FOR FALSELY ELEVATED RESULTS. TOTAL PROTEIN S/P/B 7.5 6.4 - 8.2 G/DL 03/07/2025 6:[address] [facility] ALBUMIN S/P/B 3.6 3.4 - 5.0 G/DL 03/07/2025 6:[address] [facility] AST 26 15 - 37 U/L 03/07/2025 6:[address] [facility] ALT 39 14 - 55 U/L 03/07/2025 6:[address] [facility] ALKALINE PHOSPHATASE S/P/B 95 50 - 136 U/L 03/07/2025 6:[address] [facility] ANION GAP 6.6 2 - 10 MMOL/L 03/07/2025 6:[address] [facility] BUN CREATININE RATIO 30.8(H) 6 - 26 03/07/2025 6:[address] [facility] A/G RATIO 0.9(L) 1.0 - 2.0 RATIO 03/07/2025 6:[address] [facility] GFR ESTIMATE >90 >90 ML/MIN/1.7 3 M2 03/07/2025 6:[address] [facility] Comment: NOTE: eGFR is not calculated for patients <18 years of age or gender unknown. This is an estimated GFR calculation using the new CKD EPI creatinine equation without race and so does not require a correction factor for race. This estimated GFR should not be used for calculating drug doses. 03/07/2025 5:20 AM CDT Laurel Schroeder MD LABORATORY Final Resul t [facility] [address] [place] [address], [place] [phone] * (ABNORMAL) CBC W/DIFF AUTOMATED (03/07/2025 5:20 AM CDT) [employer] Signature WBC 5.55 4.5 - 11.0 x10'3/uL 03/07/2025 5:[address] [facility] RBC 5.10 4.20 - 5.40 x10'6/uL 03/07/2025 5:[address] [facility] HGB 15.1 12.0 - 16.0 G/DL 03/07/2025 5:[address] [facility] HCT 46.3 38.0 - 48.0 % 03/07/2025 5:[address] [facility] MCV 90.8 81.0 - 99.0 FL 03/07/2025 5:[address] [facility] MCH 29.6 27.0 - 31.0 PG 03/07/2025 5:[address] [facility] MCHC 32.6 32.0 - 36.0 G/DL 03/07/2025 5:[address] [facility] RDW 13.0 11.5 - 14.5 % 03/07/2025 5:[address] [facility] PLT 233 130 - 400 x10'3/uL 03/07/2025 5:[address] [facility] MPV 11.1 9.3 - 12.2 FL 03/07/2025 5:[address] [facility] DIFFERENTIAL TYPE AUTOMATED DIFFERENTIAL 03/07/2025 5:[address] [facility] NEUTROPHILS % 63.2 % 03/07/2025 5:[address] [facility] LYMPHOCYTES % 31.7 % 03/07/2025 5:[address] [facility] MONOCYTES % 3.6 % 03/07/2025 5:[address] [facility] EOSINOPHILS 0.9 % 03/07/2025 5:[address] [facility] BASOPHILS 0.2 % 03/07/2025 5:[address] [facility] IMMATURE GRANS % 0.4 % 03/07/20 5:[address] [facility] ABS. NEUTROPHILS 3.51 1.80 - 7.70 x10'3/uL 03/07/2025 5:[address] [facility] ABS. LYMPHOCYTES 1.76 1.00 - 4.80 x10'3/uL 03/07/2025 5:[address] [facility] ABS. MONOCYTES 0.20(L) 0.24 - 0.86 x10'3/uL 03/07/2025 5:[address] [facility] ABS. EOSINOPHILS 0.05 0.04 - 0.36 x10'3/uL 03/07/2025 5:[address] [facility] ABS. BASOPHILS 0.01 0.01 - 0.08 x10'3/uL 03/07/2025 5:[address] [facility] ABS. IMMATURE GRANULOCYTES 0.02 0.00 - 0.49 x10'3/uL 03/07/2025 5:[address] [facility] 03/07/2025 5:20 AM CDT us Laurel Schroeder MD LABORATORY Final Resul t [facility] [address] [place] [address], * (ABNORMAL) CULTURE URINE (03/01/2025 3:00 PM CDT) SPEC DESCRIPTION URINE CLEAN CATCH 03/01/2025 3:03 PM CDT [facility] SPECIAL REQUESTS NO SPECIAL REQUEST 03/01/2025 3:03 PM CDT [facility] CULTURE RESULT 50,000-100, 000 COL/ML ENTEROBACTE R CLOACAE COMPLEX (A) 03/04/2025 7:[address] [facility] URINE SPECIMEN OBTAINED BY CLEAN CATCH [...] MICROBIOLOGY - GENERAL ORDERA BLES Final Result [facility] [address] [place] [address], [place] [phone] [facility] [place] [address], [place] * (ABNORMAL) URINALYSIS AUTO DIP (03/01/2025 3:00 PM CDT) SPECIMEN TYPE URINE CLEAN CATCH 03/01/2025 3:03 PM CDT [facility] COLOR (U) YELLOW 03/01/2025 3:10 PM CDT [facility] TRANSPARENCY CLOUDY 03/01/2025 3:10 PM CDT [facility] SPECIFIC GRAVITY (U) 1.025 1.001 - 1.030 03/01/2025 3:10 PM CDT [facility] U PH 5.5 5.0 - 9.0 03/01/2025 3:10 PM CDT [facility] LEUKOCYTES (U) MODERATE(A) NEGATIVE 3:10 PM CDT [facility] NITRITES POSITIVE(A) NEGATIVE 03/01/2025 3:10 PM CDT [facility] PROTEIN RANDOM (U) 100(H) <30 MG/DL 03/01/2025 3:10 PM CDT [facility] GLUCOSE (U) NEGATIVE NEGATIVE MG/DL 03/01/2025 3:10 PM CDT [facility] KETONES MG/DL (U) NEGATIVE NEGATIVE MG/DL 03/01/2025 3:10 PM CDT [facility] UROBILINOGEN 0.2(A) NEGATIVE MG/DL 03/01/2025 3:10 PM CDT [facility] BILIRUBIN (U) NEGATIVE NEGATIVE MG/DL 03/01/2025 3:10 PM CDT [facility] BLOOD (U) MODERATE(A) NEGATIVE 03/01/2025 3:10 PM CDT [facility] URINE SPECIMEN OBTAINED BY CLEAN CATCH PROCEDURE / Unknown 03/01/2025 3:00 PM CDT us Dominga Cee DO URINE ORDERABLES Final Result [facility] [address] [place] [id number], * STREP A RAPID (03/01/2025 3:00 PM CDT) SPECIMEN TYPE THROAT 03/01/2025 3:03 PM CDT [facility] RAPID STREP TEST NEGATIVE NEGATIVE 03/01/2025 3:12 PM CDT [facility] STRUCTURE OF ANTERIOR PORTION OF NECK / Unknown 03/01/2025 3:00 PM CDT us Dominga Cee DO MICROBIOLOGY - GENERAL ORDERA BLES Final Result Performing Organization Address [facility] Co de Phone Number [facility] [address] [place], [place] [id number], from Last [address] [place] [address] Care Teams Collator Operator Relationship Specialty Start Date End Date Harley Campos MD [address] [address] PCP - General FAMILY PRACTICE 02/16/24
--- OUTSIDE RECORDS SUMMARY | 2025-05-23 16:00 | XMS_ITS | Encounter Summary ---
Author Organization [facility] Address [address] [place] [address] Care Team Providers Care Commissary Officer Name Role Phone Radha Callaway Primary Care Provider [phone] None, Provider Primary Care Provider Harley Thrasher MD Primary Care Provider [phone] Encounter Details Date Type Department Care Team (Late st Contact Info) Description 09/18/2020 Prep for Procedure [facility] [place] [address] Mo Wooten MD [address] [id number] Social History Tobacco Use Types Packs/Day Years Used Date Smoking Tobacco: Every Day Cigarettes Smokeless Tobacco: Never Alcohol Use Standard Drinks/Week Comments Not Currently 0 (1 standard drink = 0.6 oz pur e alcohol) 3 times year Comments Unknown Sex and Gender Information Value Date Recorded Sex Assigned at Female 11/09/2024 10:20 AM RN ORTHOPEDIC Legal Sex Female 4:33 PM CDT Gender Identity Not on file Sexual Orientation Not on file COVID-19 Exposure Response Date Recorded In the last month, have you been in contact with someone who was confirmed or suspected to have Coronavirus / COVID-19? Yes 09/18/2020 8:30 AM RN ORTHOPEDIC documented as of this encounter Plan of Treatment Not on file documented as of this encounter Visit Diagnoses Diagnosis Hematochezia- Primary Blood in stool documented in this encounter Additional Health Concerns Infection Onset Date Last Indicated Resolved Time COVID-19 Rule Out 09/23/2020 09/23/2020 09/24/2020 11:56 AM RN ORTHOPEDIC COVID-19 Rule Out 11/23/2020 11/23/2020 11/24/2020 4:31 PM RN ORTHOPEDIC COVID-19 Rule Out 07/09/2021 07/09/2021 07/10/2021 11:47 AM CDT COVID-19 Rule Out 05/27/2023 05/27/2023 05/28/2023 7:24 AM CDT COVID-19 Rule Out 11/24/2023 11/24/2023 11/24/2023 6:55 PM RN ORTHOPEDIC COVID-19 Rule Out 01/17/2024 01/17/2024 01/17/2024 4:46 PM CDT COVID-19 Rule Out 02/16/2024 02/16/2024 02/16/2024 3:01 PM CDT COVID-19 Rule Out 11/09/2024 11/09/2024 11/09/2024 11:14 AM RN ORTHOPEDIC documented as of this encounter Care Teams Commissary Officer Relationship Specialty Start Date End Date Radha Callaway PA [facility] [address] [place] [address] PCP - General PHYSICIAN YARN WASHER 11/15/20 05/26/23 None, ProviderMD PCP - General UNKNOWN PHYSICIAN SPECIALTY 05/27/23 02/15/24 Harley Campos MD [address] [address] PCP - General FAMILY PRACTICE 02/16/24 documented as of this encounter
--- OUTSIDE RECORDS SUMMARY | 2025-05-23 16:00 | XMS_ITS | Clinical Summary ---
Author Organization [address] Address [address] [place] [phone] Care Team Providers Care Mortgage Processor Name Role Phone Radha Fermin Primary Care Provider [phone] Allergies No known active allergies Medications aspirin [...] on file Legal Sex Female 8:04 PM FISHER POT Gender Identity Not on file Sexual Orientation [...] Cancer Screening-Mammogram 11/07/2020 020, 11/07/2019 Covid-19 Vaccine (2023-2 5 season) 2024 11/13/2021, 02/07/2021, 01/10/2021 Influenza Vaccine (#1) 2025 , 08/24/2018, 07/30/2012, Additional history exists DTaP/Tdap/Td Vaccine (3 - Td or Tdap) 10/04/2029 10/04/2019, 02/16/2007, 01/26/1997 Zoster Vaccine Completed 05/30/2021, 03/29/2021 Procedures Procedure Name Priority Date/Time Associated Diagnosis Comments SCREENING MAMMOGRAM BILATERAL W THEO 11/07/2019 3:26 PM FISHER POT from Last 3 Months or Most Recently Relevant to Health Maintenance Results * Screening Mammogram Bilateral W Theo (11/07/2019 3:26 PM FISHER POT) Anatomical Region Laterality Modality Breast Bilateral Mammography 11/07/2019 3:49 PM FISHER POT Narrative 11/11/2019 8:09 AM FISHER POT Patient Name: CHALINO AUSTIN Ordering Dr: Yanique Walker CNP, D.O.B: 1965 Exam Date: 11/07/19 1526 Age: 54 Sex: Female MR#: [id number] Loc: RADIOLOGY REPORT Order #[id number] [facility] Marisol Bilat Screening 3D Signed - MG [...] made to exam dated: 02/16/2018 mammogram - [facility]. BREAST TISSUE: There are scattered areas of [...] age 40, based on guidelines of the [employer] (ACR Practice Parameter for the Performance of Screening and Diagnostic Mammography) and [employer]. For women with an elevated risk of breast cancer, please refer to the ACR Practice Parameter for specific screening recommendations. The patient will be entered into a reminder system with a target due date of 1 year for her next screening exam. Electronically signed by: Julian chung/[email or web address]:11/11/2019 08:09:38 Certified Financial Planner: Crys Sanchez (R)), [facility] letter sent: Normal Exam Reading location: BI-RADS: 2 Benign REPORT ELECTRONICALLY SIGNED IN OTHER VENDOR SYSTEM Resulting Agency Comment O Procedure Note Julian Toro MD - 11/11/2019 Patient Name: NORMANCHALINO Dr: Yanique Walker CNP, D.O.B: 1965 Exam Date: 11/07/19 1526 Age: 54 Sex: Female MR#: [id number] Loc: RADIOLOGY REPORT Order #[id number] [facility] Marisol Bilat Screening 3D Signed - MG [...] is made to exam dated: 02/16/2018 mammogram -[facility]. BREAST TISSUE: There are scattered areas of [...] age 40, based on guidelines of the [employer] (ACR Practice Parameter for the Performance of Screening and Diagnostic Mammography) and [employer]. For women with an elevated risk of breast cancer, pleaserefer to the ACR Practice Parameter for specific screening recommendations. The patient will be entered into a reminder system with a target due dateof 1 year for her next screening exam. Electronically signed by: Julian Hastings rl/[email or web address]:11/11/2019 08:09:38 Certified Financial Planner: Crys Kumar)(Krzysztof), [facility] letter sent: Normal Exam Reading location: BI-RADS: 2 Benign REPORT ELECTRONICALLY SIGNED IN OTHER VENDOR SYSTEM Yanique Walker NP IMG MAMMO PROCEDURES Final Result from Last 3 Months or Most Recently Relevant to Health Maintenance Insurance [facility] Care Teams Mortgage Processor Relationship Specialty Start Date End Date Radha Fermin PA [address] [place], [place] [address] PCP - General Physician Business Services Analyst 05/27/21
--- OUTSIDE RECORDS SUMMARY | 2025-05-23 16:00 | XMS_ITS | Encounter Summary ---
Author Organization [facility] Address [address] [place] [address] Care Team Providers Care Scutcher Tender Name Role Phone Radha Callaway Primary Care Provider [phone] None, Provider Primary Care Provider Harley Thrasher MD Primary Care Provider [phone] Encounter Details Date Type Department Care Team (Late st Contact Info) Description 11/15/2020 Prep for Procedure [facility] [place], [place] [id number] Giselle Maddox MD [address] [place] [address] [place] [phone] Social History Tobacco Use Types Packs/Day Years Used Date Smoking Tobacco: Every Day Cigarettes 0.5 40 Smokeless Tobacco: Never Alcohol Use Standard Drinks/Week Comments Not Currently 0 (1 standard drink = 0.6 oz pur e alcohol) 3 times year Comments No Sex and Gender Information Value Date Recorded Sex Assigned at Female 11/09/2024 10:20 AM HOSPITALITY SERVICES MANAGER Legal Sex Female 4:33 PM CDT Gender Identity Not on file Sexual Orientation Not on file COVID-19 Exposure Response Date Recorded In the last month, have you been in contact with someone who was confirmed or suspected to have Coronavirus / COVID-19? No / Unsure 11/15/2020 3:07 PM HOSPITALITY SERVICES MANAGER documented as of this encounter Plan of Treatment Not on file documented as of this encounter Results * PRE-SURGICAL/PRE-PROCEDURE CORONAVIRUS (COVID 19) (11/23/2020 10:30 AM HOSPITALITY SERVICES MANAGER) CORONAVIRUS SARS COV 2 PCR (RESP) NOT DETECTED NOT DETECTED 11/24/2020 4:31 PM HOSPITALITY SERVICES MANAGER [facility] Comment: A Not Detected (negative) test [...] providers and patients using the following websites: https://www.bideo.com.[employer]/home/Covid-19/HCP/NAAT/fact-sheet2 https://www.bideo.com.[employer]/home/Covid-19/Patients/NAAT/ fact-sheet2 This test has been authorized by the FDA under an Emergency Use Authorization (EUA) for use by authorized laboratories. Due to the current public health emergency, [employer] [facility] [employer] is receiving a high volume of samples [...] about COVID-19 can be found at the [employer] website: www.[employer]/Covid19. Test performed at [facility] [address] [address] [place] [address] Director: RHYS GARCIA DO,MPH FIRST TEST NO 11/23/2020 12:43 PM HOSPITALITY SERVICES MANAGER [facility] EMPLOYED IN HEALTHCARE NO 11/23/2020 12:43 PM HOSPITALITY SERVICES MANAGER [facility] SYMPTOMATIC DEFINED BY CDC NO 11/23/2020 12:43 PM HOSPITALITY SERVICES MANAGER [facility] DATE OF SYMPTOM ONSET UNKNOWN 11/23/2020 1:15 PM HOSPITALITY SERVICES MANAGER [facility] HOSPITALIZATION STATUS NO 11/23/2020 12:43 PM HOSPITALITY SERVICES MANAGER [facility] PATIENT IN ICU NO 11/23/2020 12:43 PM HOSPITALITY SERVICES MANAGER [facility] RESIDENT OF [facility] NO 11/23/2020 12:43 PM HOSPITALITY SERVICES MANAGER [facility] NOT 11/23/2020 12:43 PM HOSPITALITY SERVICES MANAGER [facility] PATIENT'S RACE WHITE OR 11/23/2020 12:43 PM HOSPITALITY SERVICES MANAGER [facility] ETHNICITY NONHISPANIC 11/23/2020 12:43 PM HOSPITALITY SERVICES MANAGER [facility] SOURCE (QST) NASOPHARYNGEAL SWAB 11/23/2020 12:43 PM HOSPITALITY SERVICES MANAGER [facility] NASOPHARYNGEAL SWAB / Unknown 11/23/2020 10:30 AM HOSPITALITY SERVICES MANAGER us Giselle Maddox MD MICROBIOLOGY - GENERAL ORDERABLE S Final Result [facility] [address] [place] [address], [employer] [facility] [address] [place] [address], documented in this encounter Visit Diagnoses Diagnosis Preop examination- Primary Preoperative examination, unspecified documented in this encounter Additional Health Concerns Infection Onset Date Last Indicated Resolved Time COVID-19 Rule Out 11/23/2020 11/23/2020 11/24/2020 4:31 PM HOSPITALITY SERVICES MANAGER COVID-19 Rule Out 07/09/2021 07/09/2021 07/10/2021 11:47 AM CDT COVID-19 Rule Out 05/27/2023 05/27/2023 05/28/2023 7:24 AM CDT COVID-19 Rule Out 11/24/2023 11/24/2023 11/24/2023 6:55 PM HOSPITALITY SERVICES MANAGER COVID-19 Rule Out 01/17/2024 01/17/2024 01/17/2024 4:46 PM CDT COVID-19 Rule Out 02/16/2024 02/16/2024 02/16/2024 3:01 PM CDT COVID-19 Rule Out 11/09/2024 11/09/2024 11/09/2024 11:14 AM HOSPITALITY SERVICES MANAGER documented as of this encounter Care Teams Scutcher Tender Relationship Specialty Start Date End Date Radha Callaway PA [facility] [address] [place] [address] PCP - General PHYSICIAN ELECTRIC ENGINE MECHANIC 11/15/20 05/26/23 None, ProviderMD PCP - General UNKNOWN PHYSICIAN SPECIALTY 05/27/23 02/15/24 Harley Campos MD [address] [id number] PCP - General FAMILY PRACTICE 02/16/24 documented as of this encounter
--- OUTSIDE RECORDS SUMMARY | 2025-05-23 16:01 | XMS_ITS | Clinical Summary ---
Author Organization [facility] Address [address] Attn: Epic Prelude ADT DAPHNE OREILLY [address] Care Team Providers Care Crisis Intervention Counselor Name Role Phone Unavailable Primary Care Provider Unavailabl e Allergies No known active allergies Medications clobetasoL (TEMOVATE) 0.05 % Cream APPLY TO RASH ON BODY TWO TIMES A DAY NEEDED 60 Gram 9 03/20/2022 7:54 PM CDT 1 Active benzonatate (TESSALON) 100 mg capsule Take 1 capsule (100 mg) by mouth every 8 (eight) hours 21 Capsule 09/03/2022 12:58 PM INBOUND SALES ADVISOR 2 Active modafiniL (PROVIGIL) 200 mg Tablet Take 2 tablets (400 mg total) by mouth every morning 60 Tablet 5 04/20/2023 10:40 AM CDT 3 Active estradioL (Estrace) 0.01% (0.1 mg/g) vaginal cream Insert 1 gram vaginally twice weekly 42.5 Gram 4 09/21/2023 12:43 PM INBOUND SALES ADVISOR 3 Active oxyBUTYnin (DITROPAN) 5 mg tablet Take 1 Tablet (5 mg) by mouth 2 times daily. 60 Tablet 11 09/21/2023 12:43 PM INBOUND SALES ADVISOR 3 Active ondansetron (ZOFRAN ODT) 4 mg [...] Capsule 08/04/2024 4:44 PM CDT 4 Active trimethoprim (TRIMPEX) 100 mg tablet [...] mg) by mouth at bedtime. 90 Tablet 05/12/2025 2:04 PM CDT 5 Active estradioL (ESTRACE) 0.01% (0.1 mg/g) [...] Tablet 03/10/2025 11:22 AM CDT 5 Active vibegron (Gemtesa) 75 mg Tablet Take 1 tablet by mouth daily 90 Tablet 1 05/17/2025 4:10 PM CDT 5 Active ciprofloxacin HCl (CIPRO) 500 mg tablet Take 1 (one) Tablet by mouth two times daily for 5 days 10 Tablet 05/17/2025 4:10 PM CDT 5 Active vibegron (Gemtesa) 75 mg Tablet Take 1 Tablet by mouth daily. 90 Tablet 1 11/11/2024 3:22 PM INBOUND SALES ADVISOR 4 05/16/20 25 Discontinu ed(Reorder ) Encounters Date Type Department Care Team Description [...]
--- OUTSIDE RECORDS SUMMARY | 2025-05-23 16:01 | XMS_ITS | Patient Health Record ---
Author Organization [facility] Address [address] [place], [place] [id number] Care Team Providers Care Radiologic Electronic Specialist Name Role Phone MAHOGANY AGGARWAL Unavailable [phone] Sharmaine Campos Unavailable Unavailable Allergies No Known Allergies Reason For Referral Reason REFERRAL ( E STABLISHED VISITS ) 04/20/2025 [employer] REFERRALS ARE NO LONGER VALID OF APRIL 24, 2025 PER [facility] Diagnosis 1 Plantar fascial fibr omatosis (M72.2) Referred Organization [facility] Referred Provider MAHOGANY AGGARWAL Referred Address [address],[place], [id number], Referred Provider Specialty Podiatry Referral Priority Routine [...] Provider Diagnosis [facility] [address] [facility] [address] [place], [place] [id number] 06/08/2024 MAHOGANY SNOOK Plantar fascial fibromatosis M72.2 ; Calcaneal spur, left foot M77.32 and Left foot pain M79.672 [facility] [place] [address] [facility] [address] [place], [place] [id number] 08/02/2024 MAHOGANY SNOOK Plantar fascial fibromatosis M72.2 ; Calcaneal spur, left foot M77.32 and Left foot pain M79.672 [facility] [place] [address] [facility] [address] [place], [place] [id number] 08/23/2024 MAHOGANY SNOOK Plantar fascial fibromatosis M72.2 ; Calcaneal spur, left foot M77.32 and Left foot pain M79.672 [facility] [address] [place], [place] [phone] 08/29/2024 MAHOGANY SNOOK Assessments Encounter Date Diagnosis (ICD Code) Assessment Notes Treatment Notes Treatment Clinical Notes Section Notes 06/08/2024 Plantar fascial fibromatosis (ICD-10 - M72.2) [...] 06/08/2024 Left foot pain (ICD-10 - M79.672) Plan Of Treatment No Information Insurance Providers Payer Name Payer Address Payer Phone Subscriber Number Group Number Insured Name Patient Relationship to Insured Coverage Start Date Coverage End Date [facility] [address] [place] [phone] [id number] SHARMAINE [place]IN Spouse - patient is the spouse of the insured Medical (General) History Medical History History ICD Code acid reflux kidney stones hepatitis hemorrhoids eczema psoriasis hypersomnolence urinary incontinence
--- OUTSIDE RECORDS SUMMARY | 2025-05-23 16:01 | XMS_ITS | Continuity of Care Document ---
Author Name [facility] Organization [facility] Care Team Providers Care Surveillance Specialist Name Role Phone [facility] Unavailable Unavailable Problems Combined list of problems [...] Condition 0055C-375t h [facility] Eczema Active Condition 1021B-Ix-H-375 Th [facility] Essential hypertension Active Condition 0055C-375th [facility] Fatigue Active Condition 9352X-Ci-J-375 Th [facility] Female stress incontinence Active Condition 0055C-375th [facility] Fibrocystic disease of breast Active Condition 0055C-3 75th [facility] GERD - Gastro-esophageal reflux disease Active Condition 6130C-Af-C -375 Th [facility] HTN - Hypertension Active Condition 3783V-Pk-E-3 75 Th [facility] Hypothyroidism Active Condition 0055C-3 [...] C-Af-C-375 Th [facility] Urinary incontinence Active Condition 9329G-Ny-M-3 75 Th Saravanan Well adult Active Condition [...] HEADACHE SYNDROMES Active Condition DoD visit for: [employer] services physical half-way Active Condition DoD Mammogram Screening Inactive Condition [...] STRESS INCONTINENCE Active Condition DoD visit for: [employer] flight physical Active Condition DoD Patient Education [...] 90 cap(s), 2 total refill(s ), Maintena are, Pharmacy : [facility] Oral (given by mouth) Ordered 5 2024 90.0 6130C-A f-C-375 Th [facility] aspirin 81 mg oral capsule cap(s), Oral, every 24 hr, 0 total refill(s ), Maintena nce Oral (given by mouth) Discont inued 04/11/20242023 6130C-A f-C-375 Th [facility] aspirin 81 mg oral capsule 1 cap(s), Oral, every 24 hr, # 90 cap(s), 2 total refill(s ), Maintena are, Pharmacy : [facility] Oral (given by mouth) Discont inued 04/10/2025 4 2024 90.0 6130C-A f-C-375 Th [facility] ASPIRIN EC (U/D) 81 MG ORAL TBEC Take with food/mil Pancho martins whole. 04/11/2025 [id number] 2023 90 [facility] ([facility]) aspirin EC 81 mg tablet See Instruct [...] total refill(s ), Maintena nce, Pharmacy : [facility] Oral (given by mouth) Discont inued 07/13/2024 4 2023 90.0 6130C-A f-C-375 Th [facility] calcium carbonate 1,500 mg (elemental Ca 600 mg) oral tab 600 mg, Oral, Daily, # 90 tab(s), 3 total refill(s ), [facility] : [facility] Oral (given by mouth) Ordered 2023 90.0 6130C-A f-C-375 Th [facility] cholecalcif alexandria 125 mcg (5,000 units) capsule See Instruct ions, # 90 EA, 3 total refill(s ), Acute Complet ed 03/17/2024 4 2023 90.0 Ambulat ory Pharmac y cholecalcif alexandria 50 mcg (2000 intl units) oral capsule 1 cap(s), Oral, Daily, # 90 cap(s), 3 total refill(s ), [facility] Oral (given by mouth) Ordered 2024 90.0 6130C-A f-C-375 Th [facility] cholecalcif alexandria 50 mcg (2000 intl units) oral capsule 1 cap(s), Oral, Daily, # 90 cap(s), 3 total refill(s ), [facility], [facility] : [facility] Oral (given by mouth) Discont inued 07/13/20242023 90.0 6130C-A f-C-375 Th [facility] cholecalcif alexandria 50 mcg (2000 intl units) oral capsule 1 cap(s), Oral, Daily, # 90 cap(s), 3 total refill(s ), [facility] Oral (given by mouth) Discont inued 04/10/20252024 90.0 6130C-A f-C-375 Th [facility] cholecalcif alexandria 50 mcg (2000 intl units) oral capsule 1 cap(s), Oral, Daily, # 90 cap(s), 3 total refill(s ), Maintena are, Pharmacy : [facility] Oral (given by mouth) Discont inued 07/13/20242023 90.0 6130C-A f-C-375 Th [facility] cholecalcif alexandria 50 mcg (2000 intl units) oral capsule 1 cap(s), Oral, Daily, # 90 cap(s), 0 total refill(s ), Maintena nce Oral (given by mouth) Discont inued 04/18/20242023 90.0 6130C-A f-C-375 Th [facility] CLOBETASOL 0.05% CREAM/CEREV E CREAM 1:1- For external use. 01/22/2025 [id number] 4 [address] [place] [address] [place] DESAI ([facility]) clobetasol 0.05% topical cream 1 appl(s), Topical, [...] directed .Obtain advice for OTCs.Jack lindsay. 04/11/2025 [id number] 4 [address] [place] [address] Dan[place] DESAI ([facility]) Fish Oil oral capsule 1 cap(s), Oral, [...] total refill(s ), Maintena nce, Pharmacy : [facility] Nostri l-Both (into the nose) Ordered [...] 16 mL, 3 total refill(s ), Maintena are, Pharmacy : [facility] Nostri l-Both (into the nose) Discont inued 04/10/20252024 16.0 6130C-A f-C-375 Th [facility] Keflex 500 mg oral capsule 1 cap(s), Oral, every 12 hr, X 7 days, # 14 cap(s), 0 total refill(s ), Acute, 05/02/24 12:28:00 PM CDT, Pharmacy : [facility] , Urinary, uncompli cated UTI Oral (given by mouth) Complet ed 05/02/2024 4 2023 14.0 6130C-A f-C-375 Th [facility] levoFLOXaci n 750 mg oral tablet 1 tab(s), Oral, every 24 hr, X 5 days, # 5 tab(s), 0 total refill(s ), Acute, 04/15/25 9:05:00 AM CDT, Pharmacy : [facility] , Urinary, complica janee UTI/pyel onephrit is Oral (given by mouth) Complet ed 04/15/2025 5 2024 5.0 6130C-A f-C-375 Th [facility] [place] Macrobid 100 mg oral capsule 1 cap(s), Oral, BID, X 5 days, # 10 cap(s), 0 total refill(s ), Acute, 05/27/24 1:31:00 PM CDT, Pharmacy : [facility] , Urinary, uncompli cated UTI Oral (given by mouth) Complet ed 05/27/2024 4 2023 10.0 0055C-3 75th [facility] miconazole 2% vaginal cream with applicator 1 appl(s), Vaginal, every day at bedtime, # 45 g, 0 total refill(s ), Acute, Pharmacy : [facility] Vagina l (in the vagina ) Discont inued 11/29/20242024 45.0 0055C-3 75th [facility] modafinil 200 mg oral tablet 2 tab(s), Oral, every morning, # 180 tab(s), 0 total refill(s ), Maintena are, Pharmacy : [facility] Oral (given by mouth) Ordered 3 2022 180.0 6130C-A -C-375 Th [facility] [place] modafinil 200 mg tablet 200 mg, TAKE ONE TABLET BY MOUTH EVERY DAY, Oral, Daily, # 90 EA, 1 total refill(s ), Acute Oral (given by mouth) Complet ed 09/15/2023 3 2022 90.0 Ambulat ory Pharmac y multivitami n adult, oral tablet Oral, Daily, 0 total refill(s ), Maintena nce Oral (given by mouth) Ordered 2023 0055C-3 75th [facility] omeprazole 20 mg oral delayed release capsule 1 cap(s), Oral, BID(AC), 30 to 60 minutes before meal, # 180 cap(s), 3 total refill(s ), Maintena are, Pharmacy : [facility] Oral (given by mouth) Ordered 5 2024 180.0 6130C-A -C-375 Th [facility] [place] omeprazole 20 mg oral delayed release capsule 1 cap(s), Oral, BID(AC), 30 to 60 minutes before meal, # 180 cap(s), 3 total refill(s ), Maintena nce, Pharmacy : [facility] Oral (given by mouth) Discont inued [...] total refill(s ), Maintena nce, Pharmacy : [facility] Oral (given by mouth) Discont inued 04/10/2025 4 2024 180.0 6130C-A f-C-375 Th [facility] omeprazole DR 20 mg capsule See Instruct ions, # 90 EA, 3 total refill(s ), Acute Complet ed 03/17/2024 4 2023 90.0 Ambulat ory Pharmac y PROPRANOLOL 80 MG ORAL TAB Be careful if taking OTCs.Gurwinder e or use exactly as directed .May cause drowsine ss/dizzi ness. 04/11/2025 [id number] 2023 180 [facility] DESAI ([facility]) propranolol 80 mg oral tablet 1 tab(s), Oral, BID, # 180 tab(s), 2 total refill(s ), Maintena nce, Pharmacy : [facility] Oral (given by mouth) Ordered 5 2024 180.0 6130C-A f-C-375 Th [facility] propranolol 80 mg oral tablet tab(s), Oral, BID, 0 total refill(s ), Maintena nce Oral (given by mouth) Discont inued 04/11/20242023 6130C-A f-C-375 Th [facility] propranolol 80 mg oral tablet 1 tab(s), Oral, BID, # 180 tab(s), 2 total refill(s ), Leonor lopez, Pharmacy : [facility] Oral (given by mouth) Discont inued [...] Known Allergies Drug allergy (disorder) active 8 [facility] Immunizations Combined list of available immunizations from the 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 Immunization Series Date Given Administered By Site Reaction Lot Number CVX Code Drug Hydro Generation Manager Status Comments Source pneumococcal 20-valent conjugate vaccine 2024 DAVID ELLIOTT Shoul simon, left (delt oid) [id number] complet ed pneumococ kenny 20-valent conjugate vaccine 04/10/25 Given 6130C-A f-C-375 Th [facility] zoster vaccine, inactivated 2020 zzLef t Arm [id number] GlaxoSmithKli ne complet ed zoster vaccine, inactivat ed 05/30/21 Given Ambulat ory Pharmac y zoster vaccine recombinant 1 2020 Unknown, Provider [id number] [facility] zoster vaccine recombina nt DoD typhoid Vi capsular polysaccharid e vac 2020 zzLef t Arm [id number] 101 sanofi pasteur complet ed typhoid Vi capsular polysacch aride vac 03/29/21 Given Ambulat ory Pharmac y [place] Encephalitis IM 2020 samiazJacky ht Arm [id number] 134 Valneva complet ed [place] Encephali tis IM 03/29/21 Given Ambulat ory Pharmac y zoster vaccine, inactivated 2020 zzLef t Arm [id number] 187 [employer]storesoSmFarmLogsKli ne complet ed zoster vaccine, inactivat ed 03/29/21 Given Ambulat ory Pharmac y anthrax vaccine 2020 zzLef t Arm [id number] 24 Emergent Bios[employer] complet ed anthrax vaccine 03/29/21 Given Ambulat ory Pharmac y anthrax vaccine 4 2020 Unknown, Provider [id number] [employer] [place] (MIP) complet ed anthrax vaccine DoD typhoid Vi capsular polysaccharid e vaccine 1 2020 Unknown, Provider [id number] Sanofi Pasteur (PMC) complet ed typhoid Vi capsular polysacch aride vaccine DoD [place] Encephalitis vaccine for intramuscular administratio n 1 2020 Unknown, Provider [id number] 134 Valneva ([place]) complet ed [place] Encephali tis vaccine for intramusc ular administr ation DoD zoster vaccine recombinant 1 2020 Unknown, Provider [id number] TYFFON (SKB) complet ed zoster vaccine recombina nt DoD COVID Vaccine Moderna 2020 zzLef t Arm [id number] complet ed COVID Vaccine Moderna 02/07/21 Given Ambulat ory Pharmac y SARS-COV-2 (COVID-19) vaccine, mRNA, spike protein, LNP, preservative free, 100 mcg or 50 mcg dose 2 2020 Unknown, Provider [id number] 207 Moderna [employer]. (MOD) complet ed SARS-COV- 2 (COVID-19 ) vaccine, mRNA, spike protein, LNP, preservat diandra free, 100 mcg or 50 mcg dose DoD COVID Vaccine Moderna 2020 zzLef t Arm [id number] 207 complet ed COVID Vaccine Moderna 01/10/21 Given Ambulat ory Pharmac y SARS-COV-2 (COVID-19) vaccine, mRNA, spike protein, LNP, preservative free, 100 mcg or 50 mcg dose 1 2020 Unknown, Provider [id number] 207 Moderna [employer]. (MOD) complet ed SARS-COV- 2 (COVID-19 ) vaccine, mRNA, spike protein, LNP, preservat diandra free, 100 mcg or 50 mcg dose DoD tetanus-dipht h toxoids (Td) adult/adol [facility] [id number] 09 sanofi pasteur complet ed tetanus-d iphth toxoids (Td) adult/ado l 10/04/19 Given Ambulat ory Pharmac y influenza, injectable, quadrivalent- pf 2018 [facility] Arm [id number] 150 Seqirus complet ed influenza , injectabl e, quadrival ent-pf 10/04/19 Given Ambulat ory Pharmac y tetanus and diphtheria toxoids, adsorbed, preservative free, for adult use (2 Lf of tetanus toxoid and 2 Lf of diphtheria toxoid) 3 2018 Unknown, Provider [id number] 09 Sanofi Pasteur (PMC) complet ed tetanus and diphtheri a toxoids, adsorbed, preservat diandra free, for adult use (2 Lf of tetanus toxoid and 2 Lf of diphtheri a toxoid) DoD Influenza, injectable, quadrivalent, preservative free 16 2018 Unknown, Provider [id number] 150 Seqirus (SEQ) complet ed Influenza , injectabl e, quadrival ent, preservat diandra free DoD influenza, injectable, quadrivalent- pf 2017 [facility] [id number] 150 GlaxoSmithKli ne complet ed influenza , injectabl e, quadrival ent-pf 08/24/18 Given Ambulat ory Pharmac y Influenza, injectable, quadrivalent, preservative free 1 2017 Unknown, Provider [id number] SmithKline (SKB) complet ed Influenza , injectabl e, quadrival ent, preservat diandra free DoD pneumococcal polysaccharid e, 23 valent 2011 DAVID ELLIOTT [id number] complet ed Result Comment: Manufactu rer: Merck Co 6130C-A f-C-375 [facility] influenza virus vaccine, live 2011 [id number] Digital Ally anh t ed influenza virus vaccine, live 07/30/12 Given Ambulat ory Pharmac y influenza virus vaccine, live, attenuated, for intranasal use 15 2011 Unknown, Provider [id number] 111 MedImmune, Inc. (MED) complet ed influenza virus vaccine, live, attenuate d, for intranasa l use DoD influenza virus vaccine, live 2010 [id number] 111 Medimmune Inc comple t ed influenza virus vaccine, live 09/04/11 Given Ambulat ory Pharmac y influenza virus vaccine, live, attenuated, for intranasal use 14 2010 Unknown, Provider [id number] 111 [facility] ([facility] complet ed influenza virus vaccine, live, attenuate d, for intranasa l use DoD Novel influenza-H1N 1-09, injectable 2009 zzLef t Arm [id number] 127 Novartis Pharmaceutica complet ed Novel influenza -G0Y4-91, injectabl e 11/02/09 Given Ambulat ory Pharmac y Novel influenza-H1N 1-09, injectable 1 2009 Unknown, Provider [id number] 127 Novartis Pharmaceutica l Madeleine. (NOV) complet ed Novel influenza -[id number], injectabl e DoD influenza virus vaccine, live 2008 [id number] 111 [facility] influenza virus vaccine, live 08/14/09 Given Ambulat ory Pharmac y influenza virus vaccine, live, attenuated, for intranasal use 1 2008 Unknown, Provider [id number] 111 MedIune, Inc. (MED) complet ed influenza virus vaccine, live, attenuate d, for intranasa l use DoD influenza virus vaccine, live 2007 [id number] 111 Medimmune Inc comple t ed influenza virus vaccine, live 08/04/08 Given Ambulat ory Pharmac y influenza virus vaccine, live, attenuated, for intranasal use 1 2007 [id number] 111 MedImmune, Inc. (MED) complet ed influenza [...] DoD tetanus, diphtheria, acellular pertu is 2006 [id number] 115 sanofi pasteur complet ed tetanus, diphtheri a, acellular pertussis 02/16/07 Given Ambulat ory Pharmac y tetanus toxoid, reduced diphtheria toxoid, and acellular pertu is vaccine, adsorbed 1 2006 [id number] 115 Sanofi Pasteur ([facility]) complet ed tetanus toxoid, reduced diphtheri a toxoid, and acellular pertussis vaccine, adsorbed DoD influenza virus vaccine,split 2005 [id number] 15 sanofi pasteur complet ed influenza virus vaccine,s plit 09/08/06 Given Ambulat ory Pharmac y influenza virus vaccine, split virus (incl. purified surface antigen)-reti red CODE 1 2005 [id number] 15 Sanofi Pasteur ([facility]) complet ed influenza virus vaccine, split virus (incl. purified surface antigen)- retired CODE DoD influenza virus vaccine,split 2004 [id number] 15 sanofi pasteur complet ed influenza virus vaccine,s plit 09/08/05 Given Ambulat ory Pharmac y influenza virus vaccine, split virus (incl. purified surface antigen)-reti red CODE 1 2004 [id number] 15 Sanofi Pasteur ([facility]) complet ed influenza virus vaccine, split virus (incl. purified surface antigen)- retired CODE DoD influenza virus vaccine, whole virus 2004 [id number] 16 sanofi pasteur complet ed influenza virus vaccine, whole virus 12/11/04 Given Ambulat ory Pharmac y influenza virus vaccine, whole virus 0 2004 [id number] 16 Sanofi Pasteur ([facility]) complet ed influenza virus vaccine, whole virus DoD tuberculin purified protein derivative 2003 [facility] [id number] 96 Unknown complet ed Patient Tolerance : Negative Ambulat ory Pharmac y tuberculin skin test; purified protein derivative solution, intradermal 1 2003 Unknown, Provider [id number] Other (OT) complet ed tuberculi n skin test; purified protein derivativ e solution, intraderm al DoD anthrax vaccine 2003 [id number] Emergent Bios[employer] complet ed anthrax vaccine 08/09/04 Given Ambulat ory Pharmac y anthrax vaccine 4 2003 [id number] [employer] ([facility]) complet ed anthrax vaccine DoD anthrax vaccine 2003 [id number] [employer] complet ed anthrax vaccine 12/25/03 Given Ambulat ory Pharmac y anthrax vaccine 3 2003 [id number] [employer] ([facility]) complet ed anthrax vaccine DoD anthrax vaccine 2003 [id number] 24 [employer] complet ed anthrax vaccine 12/05/03 Given Ambulat ory Pharmac y anthrax vaccine 2 2003 [id number] 24 Emergent BioDefense [facility] ([facility]) complet ed anthrax vaccine DoD vaccinia (smallpox) vaccine 0 2003 75 () Not Given vaccinia (smallpox ) vaccine DoD meningococcal polysaccharid e (MPSV4) 2003 [id number] 32 [employer] complet ed meningoco ccal polysacch aride (MPSV4) 11/21/03 Given Ambulat ory Pharmac y anthrax vaccine 2003 [id number] [employer] complet ed anthrax vaccine 11/21/03 Given Ambulat ory Pharmac y typhoid Vi capsular polysaccharid e vac 2003 [id number] sanofi pasteur complet ed typhoid Vi capsular polysacch aride vac 11/21/03 Given Ambulat ory Pharmac y anthrax vaccine 1 2003 [id number] 24 Emergent [employer] [facility] ([facility]) complet ed anthrax vaccine DoD meningococcal polysaccharid e vaccine (MPSV4) 0 2003 [id number] 32 [place] (CON) complet ed meningoco ccal polysacch aride vaccine (MPSV4) DoD typhoid Vi capsular polysaccharid e vaccine 0 2003 [id number] 101 Sanofi Pasteur (PMC) complet ed typhoid Vi capsular polysacch aride vaccine DoD influenza virus vaccine, whole virus 2002 [id number] 16 [email or web address] complet ed influenza virus vaccine, whole virus 08/30/03 Given Ambulat ory Pharmac y influenza virus vaccine, whole virus 0 2002 [id number] 16 [facility] ([facility] complet ed influenza virus vaccine, whole virus DoD influenza virus vaccine, whole virus 2001 [id number] 16 [email or web address] complet ed influenza virus vaccine, whole virus 09/06/02 Given Ambulat ory Pharmac y influenza virus vaccine, whole virus 0 2001 [id number] 16 [facility] ([place]) complet ed influenza virus vaccine, whole virus DoD influenza virus vaccine, whole virus 2000 [id number] 16 sanofi pasteur complet ed influenza virus vaccine, whole virus 09/14/01 Given Ambulat ory Pharmac y influenza virus vaccine, whole virus 0 2000 [id number] 16 Sanofi [facility] ([facility]) complet ed influenza virus vaccine, whole virus DoD tuberculin purified protein derivative 2000 zzLef t Arm [id number] 96 [facility] complet ed Patient Tolerance : Negative Ambulat ory Pharmac y tuberculin skin test; purified protein derivative solution, intradermal 1 2000 Unknown, Provider [id number] 96 [facility] ([facility]) complet ed tuberculi n skin test; purified protein derivativ e solution, intraderm al DoD influenza virus vaccine, whole virus 1999 [id number] 16 [email or web address] complet ed influenza virus vaccine, whole virus 10/05/00 Given Ambulat ory Pharmac y influenza virus vaccine, whole virus 0 1999 [id number] 16 [facility] complet ed influenza virus vaccine, whole virus DoD influenza virus vaccine, whole virus 1998 [id number] 16 [facility] complet ed influenza virus vaccine, whole virus 08/29/99 Given Ambulat ory Pharmac y influenza virus vaccine, whole virus 0 1998 [id number] 16 [facility] ([facility]) complet ed influenza virus vaccine, whole virus DoD tuberculin purified protein derivative 1998 zzL t Arm 96 complet ed Patient Tolerance : Negative Ambulat ory Pharmac y tuberculin skin test; purified protein derivative solution, intradermal 1 1998 Unknown, Provider 96 () complet ed tuberculi n skin test; purified protein derivativ e solution, intraderm al DoD influenza virus vaccine, whole virus [id number] 16 [email or web address] complet ed influenza virus vaccine, whole virus 08/23/98 Given Ambulat ory Pharmac y influenza virus vaccine, whole virus 0 [id number] 16 [facility] ([place]) complet ed influenza virus vaccine, whole virus DoD typhoid vaccine, live, oral 1997 [id number] 25 [employer] [place] complet ed typhoid vaccine, live, oral 01/03/98 Given Ambulat ory Pharmac y typhoid vaccine, live, oral 0 1997 [id number] 25 [employer] ([place]) complet ed [...] adult dosage DoD typhoid, parenteral, AKD 1996 [id number] 53 [employer] [place] complet ed typhoid, parentera l, AKD 01/26/97 Given Ambulat ory Pharmac y hepatitis A adult vaccine 1996 52 complet ed hepatitis A adult vaccine 01/26/97 Given Ambulat ory Pharmac y yellow fever vaccine 1996 [id number] 37 [employer] [place] complet ed yellow fever vaccine 01/26/97 Given [...] toxoid) DoD yellow fever vaccine 0 1996 [id number] 37 [employer] ([place]) complet ed yellow fever vaccine DoD hepatitis A vaccine, adult dosage 1 1996 52 () complet ed hepatitis A vaccine, adult dosage DoD typhoid vaccine, parenteral, acetone-kille d, dried ([place].S. ) 1 1996 [id number] 53 [employer] (SI) complet ed typhoid vaccine, parentera l, acetone-k illed, dried ([place] ) DoD poliovirus vaccine, live, [...] is UA Protein Negative mg/dL 04/10 N [facility] Urinalys is UA pH 6.5 *NA* (04/10/25 10:26 AM) 5 - 8 04/10 0055A-375 th [facility]inal[facility] is UA Spec [place] 1.020 1.001 - 1.035 04/10 N 0055A-375 [...] UA Ketones Negative mg/dL Negative 04/10 N 0055A-375 th [facility] Urinalys is UA Color Yellow [...] 26 mg/dL 12 - 20 04/10 H 375 [facility] Chemistr y ALT 31 U/L 5 - 55 04/10 N [facility] Chemistr y Potassium Lvl 4.6 mmol/L 3.5 - 5.1 04/10 N [facility] Chemistr y Glucose Lvl 96 mg/dL 74 - 99 04/10 N [facility] Chemistr y Creatinine Level 0.62 mg/dL 0.57 - 1.11 04/10 N [facility] Chemistr y CO2 27 mmol/L 22 - 29 04/10 N 0055A-375 th [facility] Chemistr y Chloride 108 mmol/L 98 - 107 04/10 H 0055A-375 th [facility] Chemistr y Albumin 3.90 g/dL 3.50 - 5.20 04/10 N 0055A-375 th [facility] Chemistr y AGAP 7.00 0.00 - 15.00 04/10 N 0055A-375 th [facility] Urinalys is UA Leuk Esterase Moderate *ABN* (04/10/25 8:50 AM) Negative 04/10 A 0055A-375 th [facility] Urinalys is UA Nitrite Positive *ABN* (04/10/25 8:50 AM) Negative 04/10 A 0055A-375 th [facility] Urinalys is UA Glucose Negative mg/dL Negative 04/10 N 0055A-375 th [facility] Urinalys is UA Appear Slightly cloudy *ABN* (04/10/25 8:50 AM) Clear 04/10 A 0055A-375 th [facility] Urinalys is UA Color Yellow *NA* (04/10/25 8:50 AM) 04/10 0055A-375 th [facility] Urinalys is UA Protein Negative mg/dL Negative 04/10 N 0055A-375 th [facility] Molecula r Infectio us Disease [place] a vaginalis Negative (05/20/24 12:38 PM) 05/20 N 0055A-375 th [facility] Molecula r Infectio us Disease [place] Species Positive *ABN* (05/20/24 12:38 PM) 05/20 A 0055A-375 th [facility] Molecula r Infectio us Disease [place]ichom[place] s vaginalis Negative (05/20/24 12:38 PM) 05/20 N 0055A-375 th [facility] AP Specimen s 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 [address] Cytology Gynecolo gic Report Patient: Patricia Garcia Specimen #: [id number] DOD ID:: [id number] Encounte r #: [id number] Taken: 4 12:38 /Age: 3 4 (Age: 59) Received : 4 11:53 Physicia n(s:): ALEXSANDRA Sumner JUANCHO Reported : 05/26/2024 Specimen (s) Received Taken Rec Thin [...] Due to cytologi c findings at the [employer] microsco pe or selectio n of the case for QC, comprehe nsive manual re-scree jean by a cytotech nologist was required . 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 It is not designed to detect glandula r lesions. A negative test does not ensure that no disease is present. 05/20 0055C-375 th [facility] AP Specimen s HPV Genotype 16 Negative [...] the U. S. Food and Drug Administrat [employer]. This modified vaginal specimen HPV test is [...] or methodology contact Molecular Department at or [phone]. Unknown Organizat ion AP Specimen s HPV [...] its performance characteris tics determined by [facility], [facility]. Vaginal source has not been cleared or approved by the U. S. Food and Drug Administrat [employer]. This modified vaginal specimen HPV test is [...] or methodology contact Molecular Department at or [phone]. Unknown Organat [facility] AP Specimen s HPV Genotype 18 Negative [...] its performance characteris tics determined by [facility], [facility]. Vaginal source has not been cleared or approved by the U. S. Food and Drug Administrat [employer]. This modified vaginal specimen HPV test is [...] or methodology contact Molecular Department at or [phone]. Unknown Organizat ion Urinalys is UA Bacteria 3+ *ABN* (05/20/24 11:54 AM) 05/20 A 0055A-375 th [facility] Urinalys is UA Bili Negative (05/20/24 11:54 AM) 05/20 N 5A-375 [facility] Urinalys is UA Ketones Negative mg/dL 05/20 N 375 [facility] Urinalys is UA Glucose Negative mg/dL 05/20 N 375 [facility] ym[facility] Urinalys is UA Nitrite Positive *ABN* (05/20/24 11:54 AM) 05/20 A 0055A-375 [facility] Urinalys is UA Leuk Esterase Moderate *ABN* (05/20/24 11:54 AM) 05/20 A 0055A-375 [facility] Urinalys is UA Epi Squam 3-4 (05/20/24 11:54 AM) 05/20 N -375 [facility] Urinalys is UA Protein Negative mg/dL 05/20 N 005375 [facility] Urinalys is UA Spec [place] 1.020 1.001 - 1.035 05/20 N -375 [facility] Urinalys is UA RBC 10-14 /HPF 05/20 A 0055A-375 [facility] Urinalys is UA WBC TNTC /HPF 05/20 A 0055A-375 [facility] Urinalys is UA Amorph Crystal 1+ /HPF 05/20 N 005375 [facility] Urinalys is UA Urobilinog en 0.2 E.U./dL 0.2 - 1.0.. 05/20 N 005-375 [facility] Urinalys is UA pH 5.5 5 - 8 05/205A-375 [facility] Urinalys is UA Blood Small *NA* (05/20/24 11:54 AM) 05/20-375 th [facility] Urinalys is UA Color Yellow *NA* (05/20/24 11:54 AM) 05/20-375 [facility] Urinalys is UA Clarity Slightly Cloudy 05/20-375 [facility] Urinalys is UA Ketones Negative mg/dL 04/11 N -375 [facility] Urinalys is UA Clarity Cloudy *NA* (04/11/24 10:40 AM) 04/11- [facility] Urinalys is UA Bili Negative (04/11/24 10:40 AM) 04/11 N -375 [facility] Urinalys is UA Blood Small *NA* (04/11/24 10:40 AM) 04/11-375 [facility] Urinalys is UA Bacteria 2+ *ABN* (04/11/24 10:40 AM) 04/11 A 0055A-375 th [facility] Urinalys is UA WBC TNTC /HPF 04/11 A 5A-375 [facility] Urinalys is UA RBC 3-4 /HPF 04/11 N -375 [facility] Urinalys is UA Spec [place] 1.020 1.001 - 1.035 04/11 N -375 [facility] Urinalys is UA Urobilinog en 0.2 E.U./dL 0.2 - 1.0.. 04/11 N 005-375 [facility] Urinalys is UA Nitrite Positive *ABN* (04/11/24 10:40 AM) 04/11 A 0055A-375 th [facility] Urinalys is UA Epi Squam 3-4 04/11-375 [facility] Urinalys is UA pH 6.0 *NA* (04/11/24 10:40 AM) 5 - 8 04/11-375 [facility] Urinalys is UA Glucose Negative [...] 0.60 mg/dL 0.57 - 1.11 02/04 N [facility] Chemistr y CO2 23 mmol/L 22 - 29 02/04 N [facility] Chemistr y Albumin 4.00 g/dL 3.50 - 5.20 02/04 N [facility] Chemistr y AGAP 9.00 0.00 - 15.00 02/04 N [facility] Chemistr y Alk Phos 89 U/L 40 - 150 02/04 N [facility] Chemistr y Bilirubin Total 0.5 mg/dL 0.2 - 1.2 02/04 N [facility] Chemistr y BUN 13 mg/dL 7 - 20 02/04 N [facility] Chemistr y ALT 24 U/L 5 - 55 02/04 N [facility] Chemistr y AST 16 U/L 5 - 34 02/04 N [facility] Hematolo gy RDW 13.6 % 11.0 - 14.9 02/04 N [facility] Hematolo gy MCH 30 pg 28 - 33 02/04 N [facility] Hematolo gy Hemoglobin 14.5 g/dL 11.0 - 15.0 02/04 N [facility] Hematolo gy WBC 7.0 x10^3/mc L 4.0 - 11.0103 02/04 N [facility] Hematolo gy MCV 91 fL 80 - 97 02/04 N [facility] Hematolo gy MCHC 33.0 g/dL 33.0 - 36.5 02/04 N [facility] Hematolo gy MPV 11.2 fL 7.4 - 10.4 02/04 H [facility] Hematolo gy RBC 4.8 x10^6/mc L 3.6 - 5.0106 02/04 N [facility] Hematolo gy Hematocrit 44 % 34 - 46 02/04 N [facility] Hematolo gy Differenti al? Auto (02/05/24 1:46 PM) 02/04 N [facility] Hematolo gy Platelets 208.0 x10^3/mc L 150.0 - 450.0103 02/04 N [facility] Chemistr y TSH 0.676 mIU/L [...] neutralizat ion assay. Testing performed by electrochem iluminCS Discocen ce immunoassay . Any laboratory test result should be interpreted in conjunction with the patient's clinical presentatio n and the results of other diagnostic tests. A negative result on a given laboratory assay does not by itself rule out the possibility of infection. Notifiable result/cond ition for [facility] department, notify your local [facility] immediately for proper notificatio n. [...] March 01, 2013). Notifiable result/cond ition for Local/[facility] department, notify your local [facility] immediately for proper notificatio n. Testing performed by electrochem iluminCS Discocen ce. 5600AImmuneXciteUSA FSAM EPILAB Immunolo gy/Serol ogy Hep B [...] . Testing performed by electrochem iluminescen ce. [employer] EPILAB Immunolo gy/Serol ogy Hep B Core [...] performed by electrochem iluminescen ce immunoassay . [employer] [facility] [employer] EPILAB Chemistr y Ferritin Lvl 172.00 ng/mL 13.00 - 150.00 02/04 H Interpretiv e Data: METHODOLOGY : Testing performed by electrochem iluminescen t immunoassay (ECLIA). [employer] EPILAB Chemistr y Ur Creat 96 mg/dL 02/04-375 [facility] Chemistr y Ur Microalb/U r Creat Ratio 72 mg/gCr 02/04 H -375 [facility] Chemistr y Ur Microalbum in 69 mg/L 02/04 H Interpretiv e Data: To minimize intra-indiv idual variation, analysis of three random urine samples collected over the course of a week has also been recommended . -375 [facility] Hematolo gy [place] Absolute 0.3 x10^3/mc L 0.2 - 0.8103 02/04 N 375 [facility] Hematolo gy Lymph Absolute 1.7 x10^3/mc L 1.2 - 4.0103 02/04 N 0055A375 [facility] mkyel Hematolo gy Neutro Absolute 4.9 x10^3/mc L [...] : Testing performed by colorimetri c assay. 5600ABirchbox FSAM EPILAB Immunolo gy/Serol ogy Hep B [...] performed by electrochem iluminescen ce immunoassay . 5600A-USA FSAM EPILAB Chemistr y eGFR CKD EPI [...] decrease 15-29 Severe decrease <15 Kidney failure [facility] my[facility] Vital Signs Combined list of inpatient and outpatient Vital Signs from Department of Defense and Veterans Affairs, ranging from 12 months to all on record, depending upon the facility. Vital Sign Value Date Comments Source Systolic Blood Pressure 123 mm[Hg] 04/10/2025 12:59:00 2614Z-Nz-B-375Th [facility] Diastolic Blood Pressure 71 mm[Hg] 04/10/2025 12:59:00 1400R-Ya-Q-375Th [facility] Blood Pressure Manual Automatic 04/10/2025 12:59:00 5047W-Vm-T-375Th [facility] BP Site Right arm 04/10/2025 12:59:00 6130C -Af-C-375Th [facility] Temperature Oral 36.9 Marina 04/10/2025 12:59:00 3874X-Qg-K-375Th [facility] Respiratory Rate 16 br/min 04/10/2025 12:59:00 8638M-Zk-X-375Th [facility] Peripheral Pulse Rate 78 bpm 04/10/2025 12:59:00 5138T-Ma-A-375Th [facility] Mean Arterial Pressure, Calc 88 mm[Hg] 04/10/2025 12:59:00 6641C-Ky-N-3 75Th [facility] Mean Arterial Pressure, Calc 102 mm[Hg] 04/01/2024 19:13:00 3524G-Yg-J-3 75Th [facility] Peripheral Pulse Rate 74 bpm 04/01/2024 19:13:00 4238W-Ss-X-375Th [facility] Respiratory Rate 14 br/min 04/01/2024 19:13:00 5336M-If-P-375Th [facility] Systolic Blood Pressure 131 mm[Hg] 04/01/2024 19:13:00 2925Z-Rw-T-375Th [facility] Diastolic Blood Pressure 88 mm[Hg] 04/01/2024 19:13:00 2627I-Jb-Q-375Th [facility] BP Site Left arm 04/01/2024 19:13:00 6130C -Af-C-375Th [facility] Blood Pressure Manual Automatic 04/01/2024 19:13:00 4488K-Vb-C-375Th [facility] Systolic Blood Pressure 136 mm[Hg] 05/20/2024 16:05:00 0055C-375th [facility] Diastolic Blood Pressure 89 mm[Hg] 05/20/2024 16:05:00 0055C-375th [facility] Respiratory Rate 16 br/min 05/20/2024 16:05:00 0055C-375th [facility] Peripheral Pulse Rate 78 bpm 05/20/2024 16:05:00 0055C-375th [facility] Mean Arterial Pressure, Calc 105 mm[Hg] 05/20/2024 16:05:00 0055C-375th [facility] Blood Pressure Manual Automatic 01/21/2024 20:07:00 5651T-Qa-C-375Th [facility] Peripheral Pulse Rate 73 bpm 01/21/2024 20:07:00 0301H-Az-N-375Th [facility] Systolic Blood Pressure 125 mm[Hg] 01/21/2024 20:07:00 1724B-Os-C-375Th [facility] Diastolic Blood Pressure 75 mm[Hg] 01/21/2024 20:07:00 8449H-Di-G-375Th [facility] Mean Arterial Pressure, Calc 92 mm[Hg] 01/21/2024 20:07:00 5946L-Dh-D-3 75Th [facility] Encounters Combined list of: 1) Encounters from Department of Veterans Affairs facilities going backup to the last 18 months, not all [place] inpatient encounters are included; 2) Encounters from the Department of [facility] facilities going backup to 280 months. Location Location Details Encounter Type Encounter Number Reason For Visit Attending Provider ADM Date DC Date Status Disposition Source [facility] Family Health Cl Red) TELE CONSULT [id number] MISSED TUES APPT NEEDS REFERRA L FOR KORINA SAUCEDO 11/20 Formerly [facility] Family [facility] Cl Red) [facility] Family [facility] Cl Red) OUTPATIENT [id number] back pain x 3days RINA DURBIN 03/09 Released w/o Limitations [facility] Family [facility] Cl Red) [facility] Family [facility] Cl Red) OUTPATIENT [id number] muscle spasm RINA DURBIN 03/10 Released w/o Limitations [facility] Family [facility] Cl Red) [facility] Optometry ) OUTPATIENT [id number] annual check for glasses PRATEEK QUISPE 06/11 Released w/o Limitations [facility] Optomet ry) [facility] Family [facility] Cl Red) OUTPATIENT [id number] lump on leg SHELBY THOMAS A 06/24 Released w/o Limitations [facility]) [facility]) OUTPATIENT [id number] eval on the previou s surgery GLENN CARRASCO T 12/08 Released w/o Limitations [facility]) [facility]) OUTPATIENT [id number] well woman GLENN CARRASCO T 12/15 Released w/o Limitations [facility]) [facility]) OUTPATIENT [id number] cough,c old GLENN CARRASCO T 03/29 Released w/o Limitations [facility]) [facility]) OUTPATIENT [id number] severe back pain GLENN CARRASCO T 05/21 Released w/o Limitations [facility]) [facility]) OUTPATIENT [id number] SCAR REVISIO N FROM C-SECTI ON YO ZULLY II 05/27 Released w/o Limitations [facility] ) [facility] DIRECT TO [facility] FROM OTHER THAN ER OR U [id number] YOZULLY II 11/22 RETURNED TO DUTY [facility]) INPATIENT [id number] lipodys LEXX Beaulieu 11/23 Inpatient- Still a Patient [facility] Nutrit[facility]) [facility]) OUTPATIENT [id number] post op YO ZULLY II 11/30 Released w/o Limitations [facility] ) [facility]) TELE CONSULT [id number] MARC BURTON 12/11 [facility]) [facility]) OUTPATIENT [id number] infecte SPENSER Oconnor 12/15 Released w/o Limitations [facility]) [facility]) OUTPATIENT [id number] ONE-MON TH F/U ZULLY RAM II 01/17 Released w/o Limitations [facility] ) [facility] Cl [facility]) OUTPATIENT [id number] PHA DEVI APARICIO 03/08 Released w/o Limitations [facility] Family [facility]) [facility] Family [facility] Cl [facility]) OUTPATIENT [id number] well woman exam GLENN CARRASCO 03/09 Released w/o Limitations [facility]) [facility]) OUTPATIENT [id number] f/u abdoman al surgery , 5 month YOZULLY II 04/11 Released w/o Limitations [facility] ) [facility] Optometry ) OUTPATIENT [id number] ROUT EXAM/GL PATRICIA [address] 04/24 Released w/o Limitations 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 04/26 Released w/o Limitations [facility]) [facility] Urology) OUTPATIENT [id number] FEMALE STRESS INCONTI NENCE JAMES ALAN 05/10 Released w/o Limitations [facility] ) [facility]) OUTPATIENT [id number] JAMES ALAN 05/10 Released w/o Limitations [facility] ) [facility]) OUTPATIENT [id number] JAMES ALAN 05/25 Released w/o Limitations [facility] ) [facility]) OUTPATIENT [id number] pre-op transob turator sling JAMES ALAN 05/29 Released w/o Limitations [facility] ) [facility] DIRECT TO [facility] FROM OTHER THAN ER OR U [id number] JAMES ALAN 05/30 RETURNED TO DUTY [facility]) INPATIENT [id number] cystogr am JAMES ALAN 05/31 Inpatient- Discharged to Home/Self-ca re [facility] ) [facility]) OUTPATIENT [id number] post op follow up JAMES ALAN 06/12 Released w/o Limitations [facility] ) [address] [place] [address] [place])([facility] Practice Non-GME FHI1) OUTPATIENT [id number] Medical Right Start KARLA BACK 07/10 Released w/o Limitations [address] [place] [address] [place] Judith [facility]F amily Practic e Non-GME FHI1) [address] [place] [address] [place] B [facility]Sco tt [facility] Tm Blue) OUTPATIENT [id number] Rec Rev and AHLTA 2766 SELVIN BRASHER 08/22 Released w/o Limitations [address] [place] [address] [place] B [facility]S cott [facility] Tm Blue) [address] [place] [address] [place] B [facility])(Fam kristen Practice Non-GME FHI1) OUTPATIENT [id number] Tobacco Cessati on Intake MARK SMITH 09/18 Released w/o Limitations [address] [place] [address] [place] B [facility])(F amily Practic e Non-GME FHI1) [address] [place] [address] [place] B [facility]Sco tt [facility] Tm Blue) OUTPATIENT [id number] [phone] discuss previou s plastic surgery SCOTT CHO 10/02 Released w/o Limitations [employer] [place] [employer] ([facility])(S cott [facility] Tm Blue) [facility] [place] [facility] ([facility])(Sco tt [facility] Tm Blue) OUTPATIENT [id number] tobacco follow- up SELVIN BRASHER 12/08 Released w/o Limitations [facility] [place] [facility] ([facility])(S cott [facility] Tm Blue) [address] [place] [address] [place] [facility] ([facility])([facility]) OUTPATIENT [id number] [facility]MOB EX MARIO ESTRELLA 01/09 Released w/o Limitations [facility] [place] [facility] ([facility])([facility]) [address] [place] [address] [place] [facility] ([facility])(Sco tt [facility] Tm Blue) OUTPATIENT [id number] f/u abdomin al surgery SELVIN BRASHER 02/14 Released w/o Limitations [facility] [place] [facility] ([facility])(S cott [facility] Tm Blue) [address] [place] [address] [place] [facility]Opt ometry) OUTPATIENT [id number] eye exam - MARC VICTOR 02/26 Released w/o Limitations [facility] [place] ([facility])(O ptometr y) [address] [place] [address] [place] [facility])(Artie e Managemen t) TELE CONSULT [id number] LEO WINSTON 03/[address] [place] [address] [place] ([facility])(C ase Managem ent) [address] [place] [address] [place] [facility] ([facility]) DENTAL [id number] Exam Only JAMES PEREZ 03/20 Released w/o Limitations [facility] [place] [facility] ([facility])(D ental Clinic) [address] [place] [address] [place] [facility] ([facility]) DENTAL [id number] Pros eval #4 JAMES PEREZ 03/22 Released w/o Limitations [address] [place] [address] [place] [facility] ([facility])(D ental Clinic) [address] [place] [address] [place] [facility] ([facility])(Artie e Managemen t) TELE CONSULT [id number] LEO WINSTON 03/[address] [place] [address] [employer] ([facility])(C ase Managem ent) [employer] [place] [employer] ([facility])([facility]) OUTPATIENT [id number] [facility]WHA -PHA(8) MARK SMITH 04/03 Released w/o Limitations [facility] [place] [employer] ([facility])(D [facility]) [facility] [employer] ([facility]) DENTAL [id number] Pros Prep #4 JAMES PEREZ R 04/09 Released w/o Limitations [employer] [employer] ([facility])(D ental Clinic) [employer] ([facility]) DENTAL [id number] Perio SHALONDA Melchor 04/25 Released w/o Limitations [facility] [place] [employer] ([facility])(D ental Clinic) [facility] [employer] ([facility]) DENTAL [id number] perio maint-s crp MAXWELL ROTH 05/14 Released w/o Limitations [facility] [place] B ([facility])(D ental Clinic) [facility] [place] B ([facility]) DENTAL [id number] #4 PFM insert JAMES PEREZ 05/21 Released w/o Limitations [facility] [employer] ([facility]D ental Clinic) [facility] [employer] ([facility]) DENTAL [id number] perio maint scrp MAXWELL ROTH 05/22 Released w/o Limitations [facility] [place] [employer] ([facility])(D ental Clinic) [facility] [place] [employer] [facility]Opt ometry) OUTPATIENT [id number] CRS Part 2 MARC VICTOR 05/22 Released w/o Limitations [facility] [place] [employer] ([facility])(O ptometr y) [facility](Prk Surgery) OUTPATIENT [id number] Pre-op RINA ALEXANDER 06/22 Released w/o Limitations [employer] [facility](P rk Surgery ) [facility](Prk Surgery) OUTPATIENT [id number] ot info brief BANG CHATMAN 06/26 Released w/o Limitations [employer](P rk Surgery ) [employer](Prk Surgery) OUTPATIENT [id number] consent brief BANG CHATMAN 06/26 Released w/o Limitations [employer](P rk Surgery ) [employer](Prk Surgery) OUTPATIENT [id number] final pre-op w/ surgeon BANG CHATMAN 06/26 Released w/o Limitations [employer](P rk Surgery ) [employer](Prk Surgery) OUTPATIENT [id number] Surgery BANG CHATMAN 06/27 Sick at Home/Quarter s [employer](P rk Surgery ) [employer](Prk Surgery) OUTPATIENT [id number] Post-op 1 day BANG CHATMAN 06/28 Sick at Home/Quarter s [employer](P rk Surgery ) [employer](Prk Surgery) OUTPATIENT [id number] Post-op 6 day RINA ALEXANDER 07/03 Released w/o Limitations [employer](P rk Surgery ) [employer] [place] ([facility])(Opt ometry) OUTPATIENT [id number] 1 mo prk f/u ALY ARIZA 07/27 Released w/o Limitations [employer] [place] ([facility])(O ptometr y) [facility] [place] ([facility])(Opt ometry) OUTPATIENT [id number] 2 month s/p PRK IOP check MARC VICTOR 09/04 Released w/o Limitations [employer] [place] ([facility])(O ptometr y) [facility] [place] ([facility])(Opt ometry) OUTPATIENT [id number] 3 mo prk f/u MARC VICTOR 10/09 Released w/o Limitations [employer] [place] ([facility])(O ptometr y) [facility] [place] ([facility])(Sco tt [facility] Tm Blue) OUTPATIENT [id number] painful left ankle hard to walk - [id number] FANNY FLORES 10/31 Released w/o Limitations [employer] [place] ([facility]S cott [facility] Tm Blue) [employer] Danilo DESAI ([facility])(Sco tt [facility] Tm Blue) OUTPATIENT [id number] severe headach es with menstru al cycle [phone] w [phone] c JIM ZAVALA 11/05 Released w/o Limitations [address] [place] [address] [employer] ([facility])([facility] [facility] Tm Blue) [facility] [employer] ([facility])(Sco tt [facility] Tm Blue) OUTPATIENT [id number] irregul ar menstra l cycle [phone] RENE MONSALVE H. 12/05 Released w/o Limitations [facility] Group [employer] ([facility])(S [facility] Tm Blue) [address] [place] [address] [employer] ([facility])(Opt ometry) OUTPATIENT [id number] 3 mo prk f/u MARC VICTOR 12/25 Released w/o Limitations [address] [place] [address] [employer] ([facility])(O ptometr y) [address] [place] [address] [employer] ([facility])(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) OUTPATIENT [id number] METRORR GENTRY ROSA 01/18 Released w/o Limitations [facility] [employer] ([facility])(G ynecolo gy) [facility] [employer] ([facility])([facility] OUTPATIENT [id number] TCP initial - classro YOLI Duarte 01/24 Released w/o Limitations [address] [place] [address] [employer] ([facility])(I [facility]) [address] [place] [address] [employer] [facility])(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) TELE CONSULT [id number] Discuss u/s results . GENTRY MARIE 01/[address] [place] [address] [employer] ([facility])(O b/Equipment Maint Tech) [address] [place] [address] [employer] ([facility])(Sco tt [facility] Tm Blue) OUTPATIENT [id number] fu headach es [phone] FANNY FLORES 01/30 Released w/o Limitations [address] [place] [address] [employer] ([facility])(S [facility] Tm Blue) [facility] [employer] ([facility])(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) OUTPATIENT [id number] ANNUAL SHEREEN NOVA 02/04 Released w/o Limitations [address] [place] [address] [employer] ([facility])(G ynecolo gy) [facility] [employer] ([facility])(Acu puncture) OUTPATIENT [id number] JORDAN LANGE 02/06 Released w/o Limitations [address] [place] [address] [employer] ([facility])(A cupunct ure) [address] [place] [address] [employer] ([facility])([facility]) OUTPATIENT [id number] TCP followu p JUANYOLI FAY Krzysztof 02/14 Released w/o Limitations [address] [place] [address] [employer] DES[employer] ([facility])(I Pharm D Clinic) [address] [place] [address] [employer] ([facility])(Sco tt [facility] Tm Blue) OUTPATIENT [id number] Sleep disorde r [phone] STACY PAZ 02/28 Released w/o Limitations [address] [place] [address] [employer] DES[employer] ([facility])(S cott [facility] Tm Blue) [address] [place] [address] [employer] DESAI [facility])(Opt ometry) OUTPATIENT [id number] 12 mo prk f/u MARC VICTOR 07/12 Released w/o Limitations [address] [place] [address] [employer] ([facility])(O ptometr y) [address] [place] [address] [employer] DESAI [facility])(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) TELE CONSULT [id number] e-mail about GENTRY Antonio 08/[address] [place] [address] [employer] DES[employer] ([facility])(G ynecolo gy) [address] [place] [address] [employer] ([facility])(Sco tt [facility] Tm Blue) TELE CONSULT [id number] needs routine appt for multipl e issues - [phone] CAD [facility] ANGUS EUGENE 03/[address] [place] [address] [employer] ([facility])(S cott [facility] Tm Blue) [address] [place] [address] [employer] ([facility])(Sco tt [facility] Tm Blue) OUTPATIENT [id number] pt. request ELVIN JOHNSON 04/11 Released w/o Limitations [address] [place] [address] [employer] ([facility])(S cott [facility] Tm Blue) [address] [place] [address] [employer] DESAI [facility])(Sco tt [facility] Tm Blue) TELE CONSULT [id number] Pt needs bhaskar Noel - [phone] - tsg CELESTINE MENDOZA 05/[address] [place] [address] [employer] ([facility])(S cott [facility] Tm Blue) [address] [place] [address] [employer] ([facility])([facility] Pharm [facility]) OUTPATIENT [id number] Smoking Cessati on TJ ROSA S 09/08 Released w/o Limitations [employer] ([facility])([facility] Pharm [facility]) [address] [place] [address] [employer] ([facility])(Gao tt [facility] Fam Res Tm Green) OUTPATIENT [id number] Pain in breast [phone] ALEXA HERNANDEZ 09/16 Released w/o Limitations [address] [place] [address] [employer] ([facility])(S cott [facility] Fam Res Tm Green) [facility] Medical Group [employer] ([facility])([facility]) OUTPATIENT [id number] Smoking Cessati on TJ ROSA S 09/22 Released w/o Limitations [address] [place] [address] Group [employer] ([facility])([facility] Pharm [facility]) [address] [place] [address] [employer] ([facility])([facility]) OUTPATIENT [id number] Smoking Cessati on TJ ROSA S 10/02 Released w/o Limitations [facility] Medical [facility] [employer] ([facility])([facility] Pharm [facility]) [facility] Medical [facility] [employer] ([facility])([facility]) OUTPATIENT [id number] SAMPSON NOE 10/16 Released w/o Limitations [address] [place] [address] [employer] ([facility])([facility] Pharm [facility]) [facility] Medical [facility] [employer] ([facility])([facility]) OUTPATIENT [id number] Smoking Cessati on TJ ROSA S 11/13 Released w/o Limitations [address] [place] [address] [employer] ([facility])([facility] Pharm [facility] Clinic) [facility] Medical Group [employer] ([facility])(Gao tt [facility] Fam Res Tm Green) OUTPATIENT [id number] thyroid issues [phone] ALY FIGUEROA 11/24 Released w/o Limitations [address] [place] [address] [employer] ([facility])(S cott [facility] Fam Res Tm Green) [address] [place] [address] [employer] ([facility])(Sco tt [facility] Fam Res Tm Green) TELE CONSULT [id number] Notes Entered by: QUIANA NOVA 16 Dec 2011 0945 ------- ------- ------- ------- -- Test results Ad cad tlt ALY FIGUEROA 12/[address] [place] [address] [employer]KS[employer] [facility])(S [facility] Res Green) [address] [place] [address] [employer]KS[employer] [facility])([facility]) OUTPATIENT [id number] f/u for thyroid and cholest aelxandria [phone] ALY FIGUEROA 12/25 Released w/o Limitations [address] [place] [address] [facility])(S [facility]) [address] [place] [address] [employer] B [facility])(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) OUTPATIENT [id number] MENORRH AGIA JOSE HENNING 01/12 Released w/o Limitations [address] [place] [address] [employer]KS[employer] [facility])(G ynecolo gy) [address] [place] [address] [employer]KS[employer] [facility])(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) OUTPATIENT [id number] EMB [id number] JOSE HENNING 01/14 Released w/o Limitations [address] [place] [address] [employer]KSB [facility])(G ynecolo gy) [address] [place] [address] [employer] SPARKSB [facility])([facility]) TELE CONSULT [id number] Notes Entered by: QUIANA NOVA 15 Jan 2012 0927 ------- ------- ------- ------- -- Bhaskar sumner; APPT THOMAS Avila cad tlt ELVIN JOHNSON 01/[address] [place] [address] [employer]KS[employer] [facility])([facility]) [address] [place] [address] Dan[facility])(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) TELE CONSULT [id number] Notes Entered by: SHADY HENNING 13 Feb 2012 1457 ------- ------- ------- ------- -- EMB results JOSE HENNING 02/[address] [place] [address] Danilo CLAREB [facility])(O b/Equipment 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 Tech) [address] [place] [address] Danilo CLAREB [facility])(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) OUTPATIENT [id number] pre op/ [phone] JOSE HENNING 03/23 Released w/o Limitations [address] [place] [address] Danilo [facility])(G ynecolo gy) [address] [place] [address] [employer] [facility])(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) TELE CONSULT [id number] Notes Entered by: HEAVEN TOBIN 12 Apr 2012 1446 ------- ------- ------- ------- -- Surgery HEAVEN Leung 04/[address] [place] [address] Danilo [facility])(G ynecolo gy) [address] [place] [address] Danlio [facility])(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) TELE CONSULT [id number] Notes Entered by: JOSHUA GARCIA W 03 May 2012 1511 ------- ------- ------- ------- -- F/u appt needed HEAVEN TOBIN 05/[address] [place] [address] Danilo [facility])(G yemacodarcy gy) [address] [place] [address] [employer] [facility])(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) OUTPATIENT [id number] f/u post jeffrey kaye KIMBERLY D 05/20 Released w/o Limitations [address] [place] [address] [employer] [facility])(G ynecodarcy gy) [address] [place] [address] [employer])([facility] Internal Medicine ) OUTPATIENT [id number] chronic headach es [id number] SHARMAINE MAYES 06/22 Released w/o Limitations [address] [place] [address] [employer])(S cott Interna l Medicin e Tm) [address] [place] [address] [employer])([facility] Internal Medicine Tm) OUTPATIENT [id number] follow up migrain es [id number] SHARMAINE MAYES 07/30 Released w/o Limitations [address] [place] [address])(S cott Interna l Medicin e Tm) [address] [place] [address])(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) TELE CONSULT [id number] Notes Entered by: JOSHUA GARCIA W 24 Aug 2012 1619 ------- ------- ------- ------- -- MARIO Lerma 08/[address] [place] [address])(G ynecodarcy gy) [address] [place] [address])([facility] Internal Medicine ) TELE CONSULT [id number] Notes Entered by: LUIS ANGEL MAHAN 30 Aug 2012 0810 ------- ------- ------- ------- -- Refill of medicat ion- WILLI Ireland 08/[address] [place] [address])(S cott Interna l Medicin e Tm) [address] [place] [address])([facility] Internal Medicine ) TELE CONSULT [id number] Notes Entered by: GUERRERO HERNANDEZ 06 Oct 2012 1441 ------- ------- ------- ------- -- Network results - Pulmona ry Sleep Medicin e 2 SHARMAINE MAYES 10/[address] [place] [address])(S cott Interna l Medicin e Tm) [address] [place] [address])(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) TELE CONSULT [id number] Notes Entered by: KVNG BYERS 28 Oct 2012 1301 ------- ------- ------- ------- -- Network Results - UROGYN 2 MUSA MURGUIA 10/[address] [place] [address])(O b/Equipment Maint Tech) [address] [place] [address])([facility] Internal Medicine ) OUTPATIENT [id number] kidney stones [id number] SHARMAINE MAYES 11/01 Released w/o Limitations [address] [place] [address])(S cott Interna l Medicin e Tm) [address] [place] [address])([facility] Internal Medicine ) TELE CONSULT [id number] Notes Entered by: DEVI CORRAL 06 Dec 2012 1008 ------- ------- ------- ------- -- Bhaskar Mayes - [phone] -[phone] WILLI MARTINEZ 12/[address] [place] [address])(S cott Interna l Medicin e Tm) [address] [place] [address])(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) OUTPATIENT [id number] Vaginal Dischar ge MUSA MURGUIA 12/24 Released w/o Limitations [address] [place] [address] ([facility])(G ynecolo gy) [address] [place] [address])(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) TELE CONSULT [id number] Notes Entered by: HEAVEN TOBIN 11 Jan 2013 1430 ------- ------- ------- ------- -- results MUSA MURGUIA 01/[address] [place] [address])(G ynecolo gy) [address] [place] [address])(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 Internal Medicine Tm) TELE CONSULT [id number] Notes Entered by: Sylvain JONES 18 Jan 2013 1056 ------- ------- ------- ------- -- Bhaskar Mayes [phone] WILLI MARTINEZ 01/[address] [place], [place] [address]B [facility])(S cott Interna l Medicin e Tm) [address] [place] [address])([facility] Internal Medicine ) TELE CONSULT [id number] Notes Entered by: Ashkan MARTINEZ 19 Jan 2013 1601 ------- ------- ------- ------- -- Status of LtrWILLI DE LA PAZ 01/[address] [place] [address])(S cott Interna l Medicin e Tm) [address] [place] [address])([facility] Internal Medicine ) TELE CONSULT [id number] Notes Entered by: KVNG BYERS 16 Feb 2013 1419 ------- ------- ------- ------- -- Network Results - UROLOGY 02/03/13 SHARMAINE MAYES 02/[address] [place] [address])(S cott Interna l Medicin e Tm) [address] [place] [address])([facility] Internal Medicine ) TELE CONSULT [id number] Notes Entered by: KVNG BYERS 17 Feb 2013 1644 ------- ------- ------- ------- -- Network Results - UROLOGY 02/17/13 SHARMAINE MAYES 02/[address] [place] [address])(S cott Interna l Medicin e Tm) [address] [place] [address])([facility] Internal Medicine ) OUTPATIENT [id number] CAT SCAN AT [facility] SHOWS MASS IN RIGHT BREAST [id number] SHARMAINE MAYES 02/25 Released w/o Limitations [address] [place] [address])(S cott Interna l Medicin e Tm) [address] [place] [address])([facility] Internal Medicine ) TELE CONSULT [id number] Notes Entered by: DEVI CORRAL 08 Jul 2013 1033 ------- ------- ------- ------- -- Karolyn burak Mayes - [phone] PIERRE THORNTON I 07/[address] [place] [address])(S cott Interna l Medicin e Tm) [address] [place] [address] Danilo [facility])(Opt ometry) OUTPATIENT [id number] ROUTINE IKE MAHOGANY A 10/14 Released w/o Limitations [address] [place] [address] Danilo DESAI [facility])(O ptometr y) [address] [place] [address] [facility])([facility] Internal Medicine Tm) TELE CONSULT [id number] Notes Entered by: QUIANA NOVA 24 Jan 2014 0802 ------- ------- ------- ------- -- Med refill Bebo [phone] WILLI MARTINEZ 01/[address] [place] [address] Group [employer])(S cott Interna l Medicin e Tm) [address] [place] [address] [facility]ilo [facility])([facility] Internal Medicine Tm) TELE CONSULT [id number] Notes Entered by: RADHA MAYES 02 Feb 2014 1648 ------- ------- ------- ------- -- Study results SHARMAINE MAYES 02/[address] [place] [address] Group [employer] Judith [facility])(S cott Interna l Medicin e Tm) [address] [place] [address] [facility]ilo [facility])([facility] Internal Medicine ) OUTPATIENT [id number] F/u headach SHARMAINE MAYES 02/06 Released w/o Limitations [address] [place] [address] Danilo CLAREJudith [facility])(S cott Interna l Medicin e Tm) [address] [place] [address] Danilo DESAI [facility])([facility] Fam Res Tm Red) OUTPATIENT [id number] 2nd floor ASFB/Pr eop clinic Minor procedu res AMRIT RESENDEZ 03/07 Released w/o Limitations [address] [place] [address] Group [employer]ilo SPARKSB [facility])(S cott [facility] Fam Res Tm Red) [address] [place] [address] Danilo SPARKSB [facility])([facility] FAMRES Tm Blue) OUTPATIENT [id number] 2nd floor [employer]/Sc TRAVON Haney 03/22 Released w/o Limitations [address] [place] [address] Danilo SPARKSB [facility])([facility] FAMRES Tm Blue) [address] [place] [address])([facility] Tm Blue) TELE CONSULT [id number] Notes Entered by: KENZIE RIVERA 23 Mar 2014 1335 ------- ------- ------- ------- -- Call back C-scope on [id number] - KENZIE Collazo 03/[address] [place] [address])([facility] Blue) [address] [place] [address])([facility] Internal Medicine ) TELE CONSULT [id number] Notes Entered by: QUIANA NOVA 31 Mar 2014 0735 ------- ------- ------- ------- -- Med refill Mayes [phone] WILLI MARTINEZ 03/[address] [place] [address])(S cott Interna l Medicin e Tm) [address] [place] [address])([facility] Internal Medicine ) TELE CONSULT [id number] Notes Entered by: LUIS SWEENEY 28 Jun 2014 0708 ------- ------- ------- ------- -- SX - multipl e symptom s/Ortiz / or * JAMEL EARLY 06/[address] [place] [address])(S cott Interna l Medicin e Tm) [address] [place] [address])([facility] Internal Medicine ) TELE CONSULT [id number] Notes Entered by: MARILYNN SOARES 24 Jul 2014 1236 ------- ------- ------- ------- -- Sx/head and chest congest ion/kayla quintana/618. [phone] 0* JAMEL EARLY 07/[address] [place] [address])(S cott Interna l Medicin e Tm) [address] [place] [address])([facility] Internal Medicine ) TELE CONSULT [id number] Notes Entered by: PIETRO COOK 27 Sep 2014 1359 ------- ------- ------- ------- -- Sleep Study Disorde r Referra l renewal request ed by Pt REVA COOK 09/27 Referred for Appointment [address] [place] [address])(S cott Interna l Medicin e Tm) [address] [place] [address])([facility] Internal Medicine ) TELE CONSULT [id number] Notes Entered by: MASTER BURTON 12 Jan 2015 0916 ------- ------- ------- ------- -- Network results - Urgent Care 014 JOSE ANAYA V 01/[address] [place] [address])(S cott Interna l Medicin e Tm) [address] [place] [address])([facility] Internal Medicine ) TELE CONSULT [id number] Notes Entered by: SALVADOR CARTER 25 Apr 2015 0913 ------- ------- ------- ------- -- Med Chelita /Cari /520.22 40 WILLI MARTINEZ 04/[address] [place] [address])(S cott Interna l Medicin e Tm) [address] [place] [address])([facility] Internal Medicine ) OUTPATIENT [id number] f/u HLP/lab s/meds BRIAN MARTINEZ 05/14 Released w/o Limitations [address] [place] [address])(S cott Interna l Medicin e Tm) [address] [place] [address])([facility] Internal Medicine ) TELE CONSULT [id number] Notes Entered by: KYA SQUIRES 12 Jun 2015 0910 ------- ------- ------- ------- -- Sx - headmike e, diarrhe a, nose burning - Ortiz - [phone]* JAMEL EARLY 06/[address] [place] [address] [facility])(S cott Interna l Medicin e Tm) [address] [place] [address])([facility] Internal Medicine ) OUTPATIENT [id number] hedy Bentley a X 2 days BRIAN MARTINEZ Derrick 06/12 Released w/o Limitations [address] [place] [address])(S cott Interna l Medicin e Tm) [address] [place] [address])([facility] Internal Medicine ) TELE CONSULT [id number] Notes Entered by: Diandra RG 18 Jan 2016 0822 ------- ------- ------- ------- -- Micare msg/ med refill x 3 meds [phone] SCOTT SHAH 01/17 Medication Refill Forwarded [address] [place] [address])(S cott Interna l Medicin e Tm) [address] [place] [address])([facility] Internal [facility]) TELE CONSULT [id number] Notes Entered by: Diandra RG 17 Mar 2016 0932 ------- ------- ------- ------- -- Micare msg/ x 2 referra l and civ fitness letter SCOTT SHAH 03/17 Referred for Appointment [address] [place] [address])(S cott Interna l Medicin e Tm) [address] [place] [address])([facility] Internal Medicine ) OUTPATIENT [id number] Physica l for fitness MIHAELA Urban 03/18 Released w/o Limitations [address] [place] [address])(S cott Interna l Medicin e Tm) [address] [place] [address])([facility] Internal [facility]) TELE CONSULT [id number] Notes Entered by: ANDREW QUISPE 02 Jun 2016 1403 ------- ------- ------- ------- -- LYNSEY OQUENDO JAMEL EARLY 06/[address] [place] [address])(S cott Interna l Medicin e Tm) [address] [place] [address])(War rior Op Med Cln Tm A Ad) OUTPATIENT [id number] Sinus Cold KUNAL VAIL 10/22 Released w/o Limitations [address] [place] [address])(W arrior Op Med Cln Tm A Ad) [address] [place] [address])(Fam kristen Med Tm B Non-AD BCC) TELE CONSULT [id number] Notes Entered by: HOLLAND VARELA 18 Nov 2016 1552 ------- ------- ------- ------- -- Medicat ion Refill/ ALTON Linares 11/18 Referred for Appointment [address] [place] [address])(F amily Med Tm B Non-AD BCC) [address] [place] [address])(War rior Op Med Cln Tm A Ad) OUTPATIENT [id number] medicat ion f/u KUNAL VAIL 12/11 Released w/o Limitations [address] [place] [address])(W arrior Op Med Cln Tm A Ad) [address] [place] [address])(War rior Op Med Cln Tm A Ad) TELE CONSULT [id number] Notes Entered by: ARETHA AGUILERA 12 Dec 2016 0937 ------- ------- ------- ------- -- colonos copy HAYLEY, PAULO Edward 12/[address] [place] [address])(W arrior Op Med Cln Tm A Ad) [address] [place] [address])(War rior Op Med Cln Tm A Ad) TELE CONSULT [id number] Notes Entered by: ARETHA AGUILERA 12 Dec 2016 1600 ------- ------- ------- ------- -- Colonos copy due 2023 PAULO HARDY 12/[address] [place] [address] Danilo [facility])(W arrior Op Med Cln Tm A Ad) [address] [place] [address] [facility])([facility] kristen Med Tm B Non-AD BCC) OUTPATIENT [id number] x/b - Muscle Pain, Fatigue , [phone] DARNELL MAISHA D 03/25 Released w/o Limitations [address] [place] [address] [facility])(F amily Med Tm B Non-AD BCC) [address] [place] [address] [facility])([facility] kristen Med Tm B Non-AD BCC) TELE CONSULT [id number] Notes Entered by: HOLLAND VARELA 02 Apr 2017 1501 ------- ------- ------- ------- -- Referra burak Request /Obsluis waterman PAULO HARDY 04/[address] [place] [address] [facility])(F amily Med Tm B Non-AD BCC) [address] [place] [address])([facility] kristen Med Tm B Non-AD BCC) TELE CONSULT [id number] Notes Entered by: EVGENY MARTINEZ 21 Sep 2017 0847 ------- ------- ------- ------- -- Sx persist -kidney stone-m ultiple issues/ Obszacolby /[phone]/ plc HAYLEYPAULO Starks 09/[address] [place] [address] [facility])(F amily Med Tm B Non-AD BCC) [address] [place] [address])([facility] ri[facility] Op Med Cln Tm A Ad) TELE CONSULT [id number] Notes Entered by: DEVI CORRAL 23 Sep 2017 1055 ------- ------- ------- ------- -- Hospita l F/U - referra stefany - Obstroy ki - - tsg PAULO HARDY 09/[address] [place] [address] [facility])([facility] Op Med Cln Tm A Ad) [address] [place] [address] [facility])([facility] Op Med Cln Tm A Ad) TELE CONSULT [id number] Notes Entered by: Cheyanne PENN 24 Sep 201740 ------- ------- ------- ------- -- PAULO Fiore 09/[address] [place] [address] [facility])(W arrior Op Med Cln Tm A Ad) [address] [place] [address] [facility])([facility]) TELE CONSULT [id number] Notes Entered by: CHUY BURGOS 24 Sep 2017 1117 ------- ------- ------- ------- -- Hospita l admissnicolette on notific ation CHUY BURGOS 09/[address] [place] [address] [facility])(C are Coordin ation [facility]) [address] [place] [address] [facility])([facility]) TELE CONSULT [id number] Notes Entered by: CHUY BURGOS 25 Sep 2017 0925 ------- ------- ------- ------- -- [facility] CHUY BURGOS 09/[address] [place] [address] [facility])(C are Coordin ation [facility]) [address] [place] [address] [facility])(Fam kristen Med Tm B Non-AD BCC) TELE CONSULT [id number] Notes Entered by: MARISOL MONTEMAYOR 25 Sep 201740 ------- ------- ------- ------- -- Network Results Emergen cy Room 7 KUNAL VAIL 09/[address] [place] [address] [facility])(F amily Med Tm B Non-AD BCC) [address] [place] [address] [facility])(Fam kristen Med Tm B Non-AD BCC) TELE CONSULT [id number] Notes Entered by: SILAS RODRIGUEZ 05 Oct 2017 1029 ------- ------- ------- ------- -- Network Results Emergen cy Room 7 MEAGHANM KUNAL VAIL 10/[address] [place] [address])(F amily Med Tm B Non-AD BCC) [address] [place] [address])(Fam kristen Med Tm B Non-AD BCC) TELE CONSULT [id number] Notes Entered by: SILAS RODRIGUEZ 06 Oct 2017 0906 ------- ------- ------- ------- -- Network Results Emergen cy Room 7 KUNAL HOWARD 10/[address] [place] [address])(F amily Med Tm B Non-AD BCC) [address] [place] [address])([facility] rior Op Med Cln Tm A Ad) TELE CONSULT [id number] Notes Entered by: TARAN ANGULO 27 Oct 2017 0853 ------- ------- ------- ------- -- Network Results Radiolo gy 7 RAHATS KUNAL VAIL 10/[address] [place] [address])(W arrior Op Med Cln Tm A Ad) [address] [place] [address])([facility] Op Med Cln Tm A Ad) TELE CONSULT [id number] Notes Entered by: SANDOR HAMILTON 02 Nov 2017 0747 ------- ------- ------- ------- -- Network Results -UROLOG Y 7 BRITTANYG KUNAL VAIL 11/[address] [place] [address])(W arrior Op Med Cln Tm A Ad) [address] [place] [address])(War rior Op Med Cln Tm A Ad) TELE CONSULT [id number] Notes Entered by: MADHU SHELBY 03 Nov 2017 0851 ------- ------- ------- ------- -- Network Results Radiolo gy 7 TDC (abd 1 view) KUNAL VAIL 11/[address] [place] [address])(W arrior Op Med Cln Tm A Ad) [address] [place] [address])([facility] ri[facility] Op Med Cln Tm A Ad) TELE CONSULT [id number] Notes Entered by: MADHU SHELBY 19 Nov 2017 1340 ------- ------- ------- ------- -- Network Results Radiolo gy 8 TDC (retrog rade pyelogr am) KUNAL VAIL 11/[address] [place] [address])(W arrior Op Med Cln Tm A Ad) [address] [place] [address])(War rior Op Med Cln Tm A Ad) TELE CONSULT [id number] Notes Entered by: DEVI CORRAL 18 Dec 2017 0947 ------- ------- ------- ------- -- Extend or renew bhaskar milton - [phone] - tsg HAYLEYPAULO Starks 12/[address] [place] [address])([facility] arrior Op Med Cln Tm A Ad) [address] [place] [address])([facility] rior Op Med Cln Tm A Ad) TELE CONSULT [id number] Notes Entered by: LIONEL HAWKINS 11 Feb 2018 0731 ------- ------- ------- ------- -- Micare/ med refill HAYLEY, PAULO J 02/[address] [place] [address])([facility] ar[facility] Op Med Cln Tm A Ad) [address] [place] [address])([facility] rior Op Med Cln Tm A Ad) OUTPATIENT [id number] jasen Onofre s, [phone] KUNAL VAIL 02/23 Released w/o Limitations [employer] [facility])(W arrior Op Med Cln Tm A Ad) [employer] [facility])(War rior Op Med Cln Tm A Ad) OUTPATIENT [id number] Notes Entered by: TJ MELGOZA 30 Mar 2018 1353 ------- ------- ------- ------- -- WALK-IN KUNAL ELDRIDGE 03/30 Released w/o Limitations [employer] [facility])(W arrior Op Med Cln Tm A Ad) [facility])(War rior Op Med Cln Tm A Ad) TELE CONSULT [id number] Notes Entered by: NIC PHILLIP 16 Jun 2018 0931 ------- ------- ------- ------- -- Bhaskar Merlos - Anne-Marie Jun / Roberto milton / - sgSANDI Choe 06/16 Referred for Appointment [employer] [facility])(W arrior Op Med Cln Tm A Ad) [facility])(War rior Op Med Cln Tm A Ad) TELE CONSULT [id number] 5 Notes Entered by: HAZEL STODDARD 17 Feb 2019 1119 ------- ------- ------- ------- -- MARGARITO [facility] Team 1: Office Message SANDI ALDRIDGE 02/17 Referred for Appointment [facility])(W arrior Op Med Cln Tm A Ad) [facility])(War rior Op Med Cln Tm A Ad) OUTPATIENT [id number] discuss surgica l procedu re for sinuses [id number] FEBRUARYDERRICK 06/07 Released w/o Limitations [employer] [facility])(W arrior Op Med Cln Tm A Ad) [address] [employer] [facility])(War rior Op Med Cln Tm A Ad) TELE CONSULT [id number] Notes Entered by: DEBRA ANDREWS 24 Aug 2019 1214 ------- ------- ------- ------- -- Referra sumner Issue and Request /Karin no/[phone]. [phone] 0/darius CAMPBELLON CHARLEY M 08/24 Other Not Elsewhere Classified [address] [place] [address])(W arrior Op Med Cln Tm A Ad) [address] [place] [address])(War rior Op Med Cln Tm A Ad) OUTPATIENT [id number] Notes Entered by: Sylvain GROSS 25 Aug 2019 1429 ------- ------- ------- ------- -- walk in UTI ALY SCRUGGS 08/25 Released w/o Limitations [address] [place] [address])(W arrior Op Med Cln Tm A Ad) [address] [place] [address])(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) OUTPATIENT [id number] [facility] RAS DAVALOS 09/28 Released w/o Limitations [address] [place] [address])(Diandra blount gy) [address] [place] [address])(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) TELE CONSULT [id number] Notes Entered by: DEVANG DAVALOS 04 Oct 2019 1842 ------- ------- ------- ------- -- results JT HANNAH 10/05 Released to Self Care [address] [place] [address])(G jose alejandro gy) [address] [place] [address])(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) TELE CONSULT [id number] Notes Entered by: DEVANG DAVALOS 17 Oct 2019 1043 ------- ------- ------- ------- -- JT Armstrong 10/17 Referred for Appointment [address] [place] [address])(G jose alejandro gy) [address] [place] [address])(War rior Op Med Cln Tm A Ad) OUTPATIENT [id number] Advised to schedul e appt from results of a bone scan [id number] BERTHA VERA 11/11 Released w/o Limitations [address] [place] [address])(W arrior Op Med Cln Tm A Ad) [address] [place] [address])(War rior Op Med Cln Tm A Ad) TELE CONSULT [id number] [address]: [facility] PAUL DAMON 01 May 2020 1326 ------- ------- ------- ------- -- Network results Dermato logy 020 CHEYENNE BURKS 05/[address] [place] [address])(W arrior Op Med Cln Tm A Ad) [address] [place] [address])(War rior Op Med Cln Tm A Ad) TELE CONSULT [id number] 6 Notes Entered by: HAZEL STODDARD 16 May 2020 1431 ------- ------- ------- ------- -- MARGARITO Secure HAZEL Ackerman 05/16 Released to Self Care [address] [place] [address])(W arrior Op Med Cln Tm A Ad) [address] [place] [address])(War rior Op Med Cln Tm A Ad) TELE CONSULT [id number] 3 Notes Entered by: MAMADOU GRIMM 11 Jun 2020 0900 ------- ------- ------- ------- -- Secure Message - SAMPSON Lim 06/11 Other Not Elsewhere Classified [address] [place] [address])(W arrior Op Med Cln Tm A Ad) [address] [place] [address])(Fam kristen Med Tm B Non-AD BCC) TELE CONSULT [id number] 3 Notes Entered by: Kristi RIVERS 25 Jun 2020 1437 ------- ------- ------- ------- -- Network results Gastroe nterolo gy 020 ALD KALPANA STONERKristi Grove 06/[address] [place] [address])(F amily Med Tm B Non-AD BCC) [address] [place] [address])(Fam kristen Med Tm B Non-AD BCC) TELE CONSULT [id number] Notes Entered by: Kristi RIVERS 23 Jul 2020 1316 ------- ------- ------- ------- -- Network results Pulmona ry/Sonal p Medicin e 020 ALD SHARMAINE SARMIENTO 07/[address] [place] [address])(F amily Med Tm B Non-AD BCC) [address] [place] [address])(War rior Op Med Cln Tm A Ad) TELE CONSULT [id number] Notes Entered by: HAZEL STODDARD 30 Jul 2020 1340 ------- ------- ------- ------- -- [facility]: [facility] Renewal BRITTNEY BLEVINS 07/30 Other Not Elsewhere Classified [address] [place] [address])(W arrior Op Med Cln Tm A Ad) [address] [place] [address])(War rior Op Med Cln Tm A Ad) TELE CONSULT [id number] Notes Entered by: HAZEL STODDARD 02 Aug 2020 1543 ------- ------- ------- ------- -- MARGARITO Secure Messagi [facility] Team 1: Office Message BRITTNEY BLEVINS 08/02 Released to Self Care [address] [place] [address])(W arrior Op Med Cln Tm A Ad) [address] [place] [address])(War rior Op Med Cln Tm A Ad) TELE CONSULT [id number] Notes Entered by: CHRISTIAN PEÑA 08 Aug 2020 1357 ------- ------- ------- ------- -- Lab Results SHARMAINE SARMIENTO 08/[address] [place] [address])(W arrior Op Med Cln Tm A Ad) [address] [place] [address])(Fam kristen Med Tm B Non-AD BCC) TELE CONSULT [id number] Notes Entered by: KINGSTON TUBBS 23 Aug 2020 0802 ------- ------- ------- ------- -- Resched tiffanie Appt Request / Nas milton/ - OUMAR Us 08/23 Other Not Elsewhere Classified [address] [place] [address])(F amily Med Tm B Non-AD BCC) [address] [place] [address])(Fam kristen Med Tm B Non-AD BCC) OUTPATIENT [id number] Med renewal s Virtual SHARMAINE SARMIENTO 08/31 Released w/o Limitations [address] [place] [address])(F amily Med Tm B Non-AD BCC) [address] [place] [address])(Fam kristen Med Tm B Non-AD BCC) TELE CONSULT [id number] 6 Notes Entered by: Ashkan LAZAR 26 Sep 2020 1006 ------- ------- ------- ------- -- Network results David pineda gy 020 SHARMAINE SALAS 09/[address] [place] [address])(F amily Med Tm B Non-AD BCC) [address] [place] [address])(War rior Op Med Cln Tm A Ad) TELE CONSULT [id number] 7 Notes Entered by: HAZEL STODDARD 08 Oct 2020 0920 ------- ------- ------- ------- -- [facility]: HAZEL Villasenor 10/08 Released to Self Care [address] [place] [address] [facility])(W arrior Op Med Cln Tm A Ad) [address] [place] [address])(Fam kristen Med Tm B Non-AD BCC) TELE CONSULT [id number] Notes Entered by: Sylvain NOE 02 Nov 2020 1256 ------- ------- ------- ------- -- Network results Surgery 1 TSB KAY ZHENG 11/[address] [place] [address] [facility])(F amily Med Tm B Non-AD BCC) [address] [place] [address])(War rior Op Med Cln Tm A Ad) TELE CONSULT [id number] Notes Entered by: Kristi RIVERS 27 Nov 2020 0839 ------- ------- ------- ------- -- Network results Surgery 021 ALD KAY ZHENG 11/[address] [place] [address] [facility])(W arrior Op Med Cln Tm A Ad) [address] [place] [address] [facility])(War rior Op Med Cln Tm A Ad) TELE CONSULT [id number] 6 Notes Entered by: RONDA AVALOS 28 Nov 2020 1140 ------- ------- ------- ------- -- Network Results LABORAT OR 1 KAY ZHENG 11/[address] [place] [address] [facility])(W arrior Op Med Cln Tm A Ad) [address] [place] [address] [facility])(Fam kristen Med Tm B Non-AD BCC) TELE CONSULT [id number] Notes Entered by: MARITO HEBERT 29 Nov 2020 1218 ------- ------- ------- ------- -- Network Results Summary of Care 11/26/20 KAY ZHENG 11/[address] [place] [address])(F amily Med Tm B Non-AD BCC) [address] [place] [address])(Fam kristen Med Tm B Non-AD BCC) TELE CONSULT [id number] Notes Entered by: Kristi RIVERS 14 Dec 2020 1016 ------- ------- ------- ------- -- Network results Surgery 021 KYA BERMUDEZ 12/[address] [place] [address])(F amily Med Tm B Non-AD BCC) [address] [place] [address])(Fam kristen Med Tm B Non-AD BCC) TELE CONSULT [id number] Notes Entered by: Kristi RIVERS 27 Dec 2020 0906 ------- ------- ------- ------- -- Network results Surgery 021 GLENN MARINO 12/[address] [place] [address])(F amily Med Tm B Non-AD BCC) [address] [place] [address])(Fam kristen Med Tm B Non-AD BCC) TELE CONSULT [id number] 5 Notes Entered by: Kristi RIVERS 30 Jan 2021 1159 ------- ------- ------- ------- -- Network results Surgery 021 KAY BERMUDEZ 01/[address] [place] [address])(F amily Med Tm B Non-AD BCC) [address] [place] [address])(Fam kristen Med Tm B Non-AD BCC) TELE CONSULT [id number] 3 Notes Entered by: MAMADOU GRIMM 20 Mar 2021 1402 ------- ------- ------- ------- -- MARGARITO Secure Message - Bhaskar Rosario (Dolores SAMPSON CHAMORRO 03/20 Other Not Elsewhere Classified [address] [place], [place] [address]B [facility])(F amily Med Tm B Non-AD BCC) [address] [place] [address] [facility] ([facility])(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) OUTPATIENT [id number] [facility] RONN ALATORRE 03/28 Released w/o Limitations [address] [place] [address] [employer] ([facility])(G ynecolo gy) [address] [place] [address] [facility] ([facility])(Fam kristen Med Tm B Non-AD BCC) OUTPATIENT [id number] 6 I am having acid reflux issues and would like to get seen for it MESFIN LONG 03/28 Released w/o Limitations [address] [place] [address] [employer] ([facility])(F amily Med Tm B Non-AD BCC) [address] [place] [address] Group [facility])(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) TELE CONSULT [id number] 3 Notes Entered by: STEPHEN ALATORRE 03 Apr 2021 1133 ------- ------- ------- ------- -- MIKAEL Cedillo 04/03 Other Not Elsewhere Classified [address] [place] [address] Group [facility] ([facility])(G ynecolo gy) [address] [place] [address] [facility])(Fam kristen Med Tm B Non-AD BCC) TELE CONSULT [id number] Notes Entered by: Kristi RIVERS 02 May 2021 0942 ------- ------- ------- ------- -- Network results Dermato logy 021 MESFIN WALLACE 05/[address] [place] [address] [employer] ([facility])(F amily Med Tm B Non-AD BCC) [address] [place] [address] [employer] ([facility])(Fam kristen Med Tm B Non-AD BCC) TELE CONSULT [id number] 5 Notes Entered by: DENISE SCHULZ 09 May 2021 0819 ------- ------- ------- ------- -- Network results Physica l Therapy 021 KAY VOSS 05/[address] [place] [address] [facility])(F amily Med Tm B Non-AD BCC) [address] [place] [address] Group [facility])(Fam kristen Med Tm B Non-AD BCC) TELE CONSULT [id number] Notes Entered by: HAZEL STODDARD 17 May 2021 0642 ------- ------- ------- ------- -- MARGARITO Secure Messagi ng Referra l Request HAZEL STODDARD 05/17 Released to Self Care [address] [place] [address] Group [facility])(F amily Med Tm B Non-AD BCC) [address] [place] [address] [facility])(Fam kristen Med Tm B Non-AD BCC) TELE CONSULT [id number] Notes Entered by: HAZEL STODDARD 27 Jun 2021 0907 ------- ------- ------- ------- -- MARGARITO Secure Messagi ng Prescri ption - Renewal Request HAZEL STODDARD 06/27 Released to Self Care [address] [place] [address] [facility])(F amily Med Tm B Non-AD BCC) [address] [place] [address] [facility])(Fam kristen Med Tm B Non-AD BCC) OUTPATIENT [id number] FACE TO FACE: Medicat ion refills MESFIN LONG 07/12 Released w/o Limitations [address] [place] [address] [facility])(F amily Med Tm B Non-AD BCC) [address] [place] [address] [facility])(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) TELE CONSULT [id number] Notes Entered by: Sylvain NOE 15 Jul 2021 1125 ------- ------- ------- ------- -- Network results PT 07/15/21 LUCILLE BA 07/15 Other Not Elsewhere Classified [facility] ([facility])(O b/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 Laws/ JUAN WASHINGTON 03/10 Released to Self Care [address] [place] [address])([facility] FAMRES Tm Blue) [address] [place] [address])(Sco tt [facility] FAMRES Tm Blue) TELE CONSULT [id number] Notes Entered by: JOSEF SANDY 08 May 2022 0749 ------- ------- ------- ------- -- COLT Longoria 05/08 Released to Self Care [address] [place] [address])([facility] FAMRES Tm Blue) [address] [place] [address])(Sco tt [facility] FAMRES Tm Blue) OUTPATIENT [id number] F2F - Abdomin al pain, medicat ions, HERBIE COLVIN 05/08 Released w/o Limitations [address] [place] [address])(S cott [facility] FAMRES Tm Blue) [address] [place] [address])(Sco tt [facility] Fam Res Tm Green) TELE CONSULT [id number] 5 Notes Entered by: Sylvain COLVIN 26 May 2022 0815 ------- ------- ------- ------- -- Lab results HERBIE COLVIN 05/26 Referred for Appointment [address] [place] [address] [facility]S cott [facility] Fam Res Tm Green) [address] [place] [address] [facility] ([facility])(Sco tt [facility] FAMRES Tm Blue) TELE CONSULT [id number] Notes Entered by: JENNIFER CORREA 12 Sep 2022 0908 ------- ------- ------- ------- -- Network Results - ED CC: Cate 09/03/20 CANDY ESCALONA 09/12 Released to Self Care [address] [place] [address] [facility]S cott [facility] FAMRES Tm Blue) [address] [place] [address] Danilo CLAREB [facility])(Sco tt [facility] FAMRES Tm Blue) TELE CONSULT [id number] Notes Entered by: ROHIT GARBER 16 Sep 2022 1501 ------- ------- ------- ------- -- Network Results - Dischar ge From ED 09/03/22 CANDY ESCALONA 09/16 Released to Self Care [address] [place] [address] Dan[facility]S cott [facility] FAMRES Tm Blue) [address] [place] [address] [facility])(Sco tt [facility] FAMRES Tm Blue) TELE CONSULT [id number] Notes Entered by: SOBEIDA WILDER 16 Mar 2023 1400 ------- ------- ------- ------- -- Rx Chelita /Zeke /EDI Solares 03/16 Referred for Appointment [address] [place] [address] [facility]S cott [facility] FAMRES Tm Blue) [address] [place] [address] Dan[facility] CL[facility])(Sco tt [facility] FAMRES Tm Blue) OUTPATIENT [id number] f2f annual, rx f/u HERBIE COLVIN 03/18 Released w/o Limitations [address] [place] [address] [facility] ([facility])(S cott [facility] FAMRES Tm Blue) [facility] Outpatient Encounter [id number] 04/30 [facility] FAREED N 6130C-Af- C-375Th Medgrp-Sc mykel Between Visit [id number] 04/05 Discharge Disposition: Home or Self Care 6130C-A f-C-375 Th Medgrp- [facility] 0055A-375 th MEDGRP-Sc mykel Outpatient [id number] TAMI HUFFMAN 04/10 Discharge Disposition: Home or Self Care 0055A-3 75th [facility]- [facility] 0055A-375 th MEDGRP-Sc mykel Outpatient [id number] TAMI HUFFMAN 04/21 Discharge Disposition: Home or Self Care 0055A-3 75th [facility] 6130C-Af- C-375Th Medgrp-Sc mykel Between Visit [id number] 05/10 Discharge Disposition: Home or Self Care 6130C-A f-C-375 Th Medgrp- [facility] 6130C-Af- C-375Th Medgrp-Sc mykel Between Visit [id number] 05/23 6130C-A f-C-375 Th Medgrp- [facility] Procedures Combined list of: 1) Procedures from Department of Veterans Affairs facilities going back up to thelast 18 months, not all [place] non-surgical procedures are included; 2) All procedures from the Department of Defense facilities. Procedure Procedure Type Code Date [facility] kidney stone lithotripsy 019 0055C-37 5th MEDGRP-S abbi kidney stone lithotripsy 017 0055C-37 5th [facility] Urinary sling replacement 013 0055C-37 5th [facility] PRK 009 0055C-37 5th [facility] urninary sling 008 6130C-Af -C-375Th Medgrp-S abbi kidney stones lithotripsy 004 6130C-Af -C-375Th Medgr[facility]S [facility] ankle fracture plate implant 2x 002 6130C-Af -C-375Th Medgrp-S abbi Tonsillectomy, primary or secondary; age 12 or over Tonsillectomy, primary or secondary; age 12 or over [id number] 6130[facility] ectopic 990 30- -C-375 [facility] wisdom teeth removed [phone]- -C375 [facility] Colorectal cancer screening; colonoscopy on individual not meeting criteria for high risk 0055C-37 5th [facility] CYSTOURETHROSCOPY, WITH REMOVAL OF FOREIGN BODY, CALCULUS, OR URETERAL STENT FROM URETHRA OR BLADDER (SEPARATE PROCEDURE); SIMPLE 004 [facility] RINGERS LACTATE INFUSION, UP TO 1000 CC 004 [facility] EDUCATIONAL SUPPLIES, SUCH BOOKS, TAPES, AND PAMPHLETS, FOR THE PATIENT'S EDUCATION AT COST TO PHYSICIAN OR OTHER QUALIFIED HEALTH ANDROID PLATFORM DEVELOPER 004 DoD POSTOPERATIVE FOLLOW-UP VISIT, NORMALLY INCLUDED IN THE SURGICAL PACKAGE, INDICATE THAT EVALUATION & MANAGEMENT SERVICE WAS PERFORMED DURING A POSTOPERATIVE PERIOD REASON RELATED ORIGINAL PROCEDURE 009 DoD POSTOPERATIVE FOLLOW-UP VISIT, NORMALLY INCLUDED IN THE SURGICAL PACKAGE, INDICATE THAT EVALUATION & MANAGEMENT SERVICE WAS PERFORMED DURING A POSTOPERATIVE PERIOD REASON RELATED ORIGINAL PROCEDURE 009 DoD PHOTOREFRACTIVE KERATECTOMY (PRK) 009 [facility] PHYS/OTH QUALIFIED HEALTH ANDROID PLATFORM DEVELOPER QUALIFIED,EDUCATION, TRAIN,LICENSURE/REGU LATION (WHEN APPLICABLE) EDUC SER [...] OF SPECTACLES, EXCEPT FOR APHAKIA; MONOFOCAL 008 [facility] WHOLE BODY INTEGUMENTARY PHOTOGRAPHY, FOR MONITORING [...] PERSONAL OR FAMILIAL HISTORY OF MELANOMA 008 [facility] SIZE REDUCTION PLASTIC OPERATION 008 [facility] REPAIR OF OTHER HERNIA OF ANTERIOR ABDOMINAL WALL WITH GRAFT OR PROSTHESIS 008 [facility] REPAIR OF UMBILICAL HERNIA WITH GRAFT OR PROSTHESIS 008 [facility] WHOLE BODY INTEGUMENTARY PHOTOGRAPHY, FOR MONITORING OF HIGH RISK PATIENTS WITH DYSPLASTIC NEVUS SYNDROME OR A HISTORY OF DYSPLASTIC NEVI, OR PATIENTS WITH A PERSONAL OR FAMILIAL HISTORY OF MELANOMA 007 [facility] THERAPEUTIC, PROPHYLACTIC OR DIAGNOSTIC INJECTION (SPECIFY SUBSTANCE OR DRUG); SUBCUTANEOUS OR INTRAMUSCULAR 007 [facility] SCREENING PAPANICOLAOU SMEAR; OBTAINING, PREPARING AND CONVEYANCE OF CERVICAL OR VAGINAL SMEAR TO LABORATORY 007 DoD FITTING OF SPECTACLES, EXCEPT FOR APHAKIA; MONOFOCAL 006 DoD INJECTION, KETOROLAC TROMETHAMINE, PER 15 MG 006 DoD FITTING OF SPECTACLES, EXCEPT FOR APHAKIA; MONOFOCAL 005 DoD INJECTION, KETOROLAC TROMETHAMINE, PER 15 MG 004 DoD COLLECTION OF VENOUS BLOOD BY VENIPUNCTURE 004 [facility] SCREENING PAPANICOLAOU SMEAR; OBTAINING, PREPARING AND CONVEYANCE OF CERVICAL OR VAGINAL SMEAR TO LABORATORY 004 [facility] PHYSICAL THERAPY RE-EVALUATION 003 [facility] MANUAL THERAPY TECHNIQUES (EG, MOBILIZATION/ MANIPULATION, MANUAL LYMPHATIC DRAINAGE, MANUAL TRACTION), 1 OR MORE REGIONS, EACH 15 MINUTES 003 [facility] DETERMINATION OF REFRACTIVE STATE 003 DoD [...] TO IMPROVE FUNCTIONAL PERFORMANCE), EACH 15 MINUTES [facility] THERAPEUTIC ACTIVITIES, DIRECT (ONE-ON-ONE) PATIENT CONTACT (USE OF DYNAMIC ACTIVITIES TO IMPROVE FUNCTIONAL PERFORMANCE), EACH 15 MINUTES DoD THERAPEUTIC PROCEDURE,1 OR MORE AREAS,EACH 15 MINUTES;NEUROMUSCULA R REEDUCATION OF MOVEMENT,BALANCE,SENIOR CREDIT ANALYST RDINATION,KINESTHETI C SENSE,POSTURE,AND/OR PROPRIOCEPTION FOR SITTING AND/OR STANDING ACTIVITIES DoD THERAPEUTIC ACTIVITIES, DIRECT (ONE-ON-ONE) PATIENT CONTACT (USE OF DYNAMIC ACTIVITIES TO IMPROVE FUNCTIONAL PERFORMANCE), EACH 15 MINUTES 002 DoD THERAPEUTIC PROCEDURE,1 OR MORE AREAS,EACH 15 MINUTES;NEUROMUSCULA R REEDUCATION OF MOVEMENT,BALANCE,SENIOR CREDIT ANALYST RDINATION,KINESTHETI C SENSE,POSTURE,AND/OR PROPRIOCEPTION FOR SITTING AND/OR STANDING ACTIVITIES DoD THERAPEUTIC ACTIVITIES, DIRECT (ONE-ON-ONE) PATIENT CONTACT (USE OF DYNAMIC ACTIVITIES TO IMPROVE FUNCTIONAL PERFORMANCE), EACH 15 MINUTES [facility] THERAPEUTIC PROCEDURE, 1 OR MORE AREAS, EACH 15 MINUTES; THERAPEUTIC EXERCISES TO DEVELOP STRENGTH AND ENDURANCE, RANGE OF MOTION AND FLEXIBILITY [facility] PHYSICAL THERAPY EVALUATION [facility] OPEN TREATMENT OF TRIMALLEOLAR ANKLE FRACTURE, INCLUDES INTERNAL FIXATION, WHEN PERFORMED, MEDIAL AND/OR LATERAL MALLEOLUS; WITHOUT FIXATION OF POSTERIOR LIP 002 [facility] OTHER ARTIFICIAL RUPTURE OF MEMBRANES 995 [facility] MEDICAL INDUCTION OF LABOR 995 [facility] EKG (SCALP) 995 [facility] REPAIR OF OTHER CURRENT OBSTETRIC LACERATION 99 [facility] MANUAL REMOVAL OF RETAINED PLACENTA 995 [facility] REPAIR OF CURRENT OBSTETRIC LACERATION OF CERVIX 995 [facility] OTHER DIAGNOSTIC PROCEDURES ON FETUS AND AMNION 99 [facility] INDIVIDUAL PSYCHOTHER, INTERACT, PLAY EQUIP, PHYS DEVICES, SCHOOL BUS OPERATOR/[facility] AN INPAT HOSP, PART HOSP/RESIDENT CARE, APPROX 20-30 MIN [id number] W PAT; W MED E&M SER 001 [facility] UNLISTED PROCEDURE, BREAST [facility] OPHTHALMOLOGICAL SERVICES: MEDICAL EXAMINATION AND EVALUATION, WITH INITIATION OR CONTINUATION OF DIAGNOSTIC AND TREATMENT PROGRAM; INTERMEDIATE, ESTABLISHED PATIENT 001 DoD TELE ASSESS & MGT SRV PROV [...] OTHERWISE SPECIFIED (NOS) DoD QUALIFIED NONPHYSICIAN HEALTH ANDROID PLATFORM DEVELOPER ONLINE DIGITAL ASSESSMENT AND MANAGEMENT, FOR AN ESTABLISHED PATIENT, FOR UP TO 7 DAYS, CUMULATIVE TIME DURING THE 7 DAYS; 11-20 MINUTES DoD QUALIFIED NONPHYSICIAN HEALTH ANDROID PLATFORM DEVELOPER ONLINE DIGITAL ASSESSMENT AND MANAGEMENT, FOR AN [...] INDIVIDUAL NOT MEETING CRITERIA FOR HIGH RISK 05/28/2 014 DoD TELE ASSESS & MGT SRV PROV QUAL NONPHYS HLTH CARE PRO TO EST PAT,PARENT,GUARD NOT ORIG REL ASSESS & MGT SRV PROV W/IN PREV 7 DAYS NOR LEAD ASSESS & MGT SRV/PX W/IN NXT 24H/SOON APT; 21-30 MIN MED DIS [facility] OPHTHALMOLOGICAL SERVICES: MEDICAL EXAMINATION AND EVALUATION WITH INITIATION OF DIAGNOSTIC AND TREATMENT PROGRAM; COMPREHENSIVE, NEW PATIENT, 1 OR MORE VISITS DoD TELE ASSESS & MGT SRV PROV QUAL NONPHYS HLTH CARE PRO TO EST PAT,PARENT,GUARD NOT ORIG REL ASSESS & MGT SRV PROV W/IN PREV 7 DAYS NOR LEAD ASSESS & MGT SRV/PX W/IN NXT 24 HR/SOON APT;5-10 MIN MED DIS [facility] URINE TEST, BY VISUAL COLOR COMPARISON METHODS [facility] MEDICATION THERAPY MGT SERVICE(S) PROVIDED,A PHARMACIST,INDIV,FAC E-TO-FACE W PATIENT,WITH ASSESS & INTERVENE IF PROVIDED;EA ADDITION 15 MINUTES (LIST SEPARATELY IN ADDITION TO CODE FOR PRIM SERVICE) [facility] MEDICATION THERAPY MANAGEMENT SERVICE(S) PROVIDED BY A PHARMACIST, INDIVIDUAL, [id number] WITH PATIENT, WITH ASSESSMENT AND INTERVENTION IF PROVIDED; INITIAL 15 MINUTES, ESTABLISHED PATIENT [facility] MEDICATION THERAPY MGT SERVICE(S) PROVIDED,A PHARMACIST,INDIV,FAC E-TO-FACE W PATIENT,WITH ASSESS & INTERVENE IF PROVIDED;EA ADDITION 15 MINUTES (LIST SEPARATELY IN ADDITION TO CODE FOR PRIM SERVICE) [facility] MEDICATION THERAPY MGT SERVICE(S) PROVIDED,A PHARMACIST,INDIV,FAC E-TO-FACE W PATIENT,WITH ASSESS & INTERVENE IF PROVIDED;EA ADDITION 15 MINUTES (LIST SEPARATELY IN ADDITION TO CODE FOR PRIM SERVICE) [facility] SMOKING CESSATION CLASSES, NON-PHYSICIAN PROVIDER, PER SESSION [facility] TELE ASSESS & MGT SRV PROV QUAL NONPHYS HLTH CARE PRO TO EST PAT,PARENT,GUARD NOT ORIG REL ASSESS & MGT SRV PROV W/IN PREV 7 DAYS NOR LEAD ASSESS & MGT SRV/PX W/IN NXT 24 HR/SOON APT;5-10 MIN MED DIS [facility] TELE ASSESS & MGT SRV PROV QUAL [...] 010 DoD DETERMINATION OF REFRACTIVE STATE 009 [facility] OPHTHALMOLOGICAL SERVICES: MEDICAL EXAMINATION AND EVALUATION, WITH INITIATION OR CONTINUATION OF DIAGNOSTIC AND TREATMENT PROGRAM; INTERMEDIATE, ESTABLISHED PATIENT 009 DoD DETERMINATION OF REFRACTIVE STATE 009 DoD OPHTHALMIC ULTRASOUND, ECHOGRAPHY, DIAGNOSTIC; CORNEAL PACHYMETRY, UNILATERAL OR BILATERAL (DETERMINATION OF CORNEAL THICKNESS) 009 DoD DETERMINATION OF REFRACTIVE STATE 009 DoD LOWER GI SERIES 998 DoD INSERTION OF OTHER (NASO-)GASTRIC TUBE 998 DoD DIAGNOSTIC ULTRASOUND OF DIGESTIVE SYSTEM 998 DoD INTRAVENOUS PYELOGRAM 998 DoD Non-Physician Phone Call To Patient/Provider Brief (5-10min) Non-Physician Phone Call To Patient/Provider Brief (5-10min) [phone] SANDI ALDRIDGE Non-Physician Phone Call To Patient/Provider Brief (5-10min) Non-Physician Phone Call To Patient/Provider Brief (5-10min) [phone] SANDI ALDRIDGE DoD Non-Physician Phone Call To Patient/Provider Brief (5-10min) Non-Physician Phone Call To Patient/Provider Brief (5-10min) [phone] PAULO HARDY DoD Non-Physician Phone Call To Patient/Provider Brief (5-10min) Non-Physician Phone Call To Patient/Provider Brief (5-10min) [phone] PAULO HARDY DoD Case Management, each 15 minutes 017 CHUY BURGOS [facility] Case Management, each 15 minutes 017 CHUY BURGOS [facility] Non-Physician Phone Call To Patient/Provider Brief (5-10min) Non-Physician Phone Call To Patient/Provider Brief (5-10min) [phone] PAULO HARDY [facility] Non-Physician Phone Call To Patient/Provider Brief (5-10min) Non-Physician Phone Call To Patient/Provider Brief (5-10min) [phone] PAULO HARDY [facility] Non-Physician Phone Call To Patient/Provider Brief (5-10min) Non-Physician Phone Call To Patient/Provider Brief (5-10min) [phone] ALTON HARDY [facility] Non-Physician Phone Call To Patient/Provider Brief (5-10min) Non-Physician Phone Call To Patient/Provider Brief (5-10min) [phone] WILLI MARTINEZ [facility] Non-Physician Phone Call To Patient/Provider Brief (5-10min) Non-Physician Phone Call To Patient/Provider Brief (5-10min) [phone] REVA COOK [facility] Non-Physician Phone Call To Patient/Provider Brief (5-10min) Non-Physician Phone Call To Patient/Provider Brief (5-10min) [phone] JAMEL EARLY [facility] Non-Physician Phone Call To Pt/Provider Intermed (11-20 min) Non-Physician Phone Call To Pt/Provider Intermed (11-20 min) [phone] SHARMAINE MAYES [facility] Colorectal cancer screening; colonoscopy on individual not meeting criteria for high risk 014 TRAVON LAWS [facility] Non-Physician Phone Call To Pt/Provider Lengthy (21-30 min) Non-Physician Phone Call To Pt/Provider Lengthy (21-30 min) [phone] WILLI MARTINEZ [facility] Ophthalmological New Patient Start Comprehensive Care Ophthalmological New Patient Start Comprehensive Care [id number] MAHOGANY RAMIRES [facility] Determination Of Refractive State Determination Of Refractive State [id number] MAHOGANY RAMIRES [facility] Endometrial Biopsy By Suction Endometrial Biopsy By Suction [phone] JOSE HENNING [facility] Non-Physician Phone Call To Patient/Provider Brief (5-10min) Non-Physician Phone Call To Patient/Provider Brief (5-10min) [phone] ANGUS EUGENE Test Test [phone] JOSE HENNING [facility] Medication Management By Pharmacist Each Additional 15 Min Medication Management By Pharmacist Each Additional 15 Min [phone] PRAVEENA TJ S DoD Med Management By Pharmacist Initial 15 Min Estab Patient Med Management By Pharmacist Initial 15 Min Estab Patient [id number] [phone] PRAVEENA TJ S DoD Med Management By Pharmacist Initial 15 Min Estab Patient Med Management By Pharmacist Initial 15 Min Estab Patient [phone] SAMPSON NOE [facility] Medication Management By Pharmacist Each Additional 15 Min Medication Management By Pharmacist Each Additional 15 Min [phone] PRAVEENA, TJ S DoD Med Management By Pharmacist Initial 15 Min Estab Patient Med Management By Pharmacist Initial 15 Min Estab Patient [phone] PRAVEENA, TJ S [facility] Medication Management By Pharmacist Each Additional 15 Min Medication Management By Pharmacist Each Additional 15 Min [phone] PRAVEENA, TJ S DoD Med Management By Pharmacist Initial 15 Min Estab Patient Med Management By Pharmacist Initial 15 Min Estab Patient [phone] ROSA, TJ S [facility] Smoking ce ation cla es, non-physician provider, per se ion 011 PRAVEENA, TJ S [facility] Medication Management By Pharmacist Each Additional 15 Min Medication Management By Pharmacist Each Additional 15 Min [id number] [phone] PRAVEENA, TJ S DoD Med Management By Pharmacist Initial 15 Min New Patient Med Management By Pharmacist Initial 15 Min New Patient [phone] PRAVEENA TJ S [facility] Non-Physician Phone Call To Patient/Provider Brief (5-10min) Non-Physician Phone Call To Patient/Provider Brief (5-10min) [phone] CELESTINE MENDOZA [facility] Non-Physician Phone Call To Patient/Provider Brief (5-10min) Non-Physician Phone Call To Patient/Provider Brief (5-10min) [phone] ANGUS EUGENE [facility] Ophthalmological Prior Patient Start Intermediate Level Care Ophthalmological Prior Patient Start Intermediate Level Care [phone] JACK AVITIA Determination Of Refractive State Determination Of Refractive State [phone] JACK AVITIA Osteopathic Manip Treatment (OMT) 1-2 Body Regions Involved Osteopathic Manip Treatment (OMT) 1-2 Body Regions Involved [id number] STACY PAZ Acupunct One Or More [place] W/O Stimulation Initial 15 Min Acupunct One Or More [place] W/O Stimulation Initial 15 Min [id number] JORDAN LANGE Screening papanicolaou smear; obtaining, preparing and conveyance of cervical or vaginal smear to laboratory 010 SHEREEN NOVA Determination Of Refractive State Determination Of Refractive State 55243 010 MARC VICTOR Ophthalmological Prior Patient Start Intermediate Level Care Ophthalmological Prior Patient Start Intermediate Level Care [phone] MARC VICTOR Determination Of Refractive State Determination Of Refractive State 48230 009 MARC VICTOR Ophthalmological Prior Patient Start Intermediate Level Care Ophthalmological Prior Patient Start Intermediate Level Care 61290 009 MARC VICTOR Ophthalmological Prior Patient Start Intermediate Level Care Ophthalmological Prior Patient Start Intermediate Level Care 26229 009 MARC VICTOR Determination Of Refractive State Determination Of Refractive State 89011 009 NSIREEN ARIZA Ophthalmological Prior Patient Start Comprehensive Care Ophthalmological Prior Patient Start Comprehensive Care 64486 009 NISREEN ARIZA Determination Of Refractive State Determination Of Refractive State 65772 009 RINA ALEXANDER Ophthalmological Prior Patient Start Intermediate Level Care Ophthalmological Prior Patient Start Intermediate Level Care 28716 009 RINA ALEXANDER Postoperative Visit, Without Charge Postoperative Visit, Without Charge 60168 009 BANG CHATMAN Photorefractive keratectomy (PRK) 009 BANG CHATMAN Ophthalmological Prior Patient Start Intermediate Level Care Ophthalmological Prior Patient Start Intermediate Level Care [address].-Supervised Group Educational Services 009 BANG CHATMAN [facility] Determination Of Refractive State Determination Of Refractive State 68456 009 ROLES, RINA Pena Corneal Pachymetry Corneal Pachymetry 95522 23/12 009 ROLES, RINA Pena External Ocular Photography External Ocular Photography 47471 009 ROLESRINA Diagnostic Imaging Ocular Coherence Topography 009 ROLES, RINA Pena Computerized Corneal Topography Computerized Corneal Topography 57564 009 ROLES, RINA Pena Ophthalmological New Patient Start Comprehensive Care Ophthalmological New Patient Start Comprehensive Care 06006 009 ROLES, RINA Pena Determination Of Refractive State Determination Of Refractive State 76267 009 MARC VICTOR Corneal Pachymetry, Bilateral With Interpret And Report Corneal Pachymetry, Bilateral With Interpret And Report 23221 009 MARC VICTOR Computerized Corneal Topography Computerized Corneal Topography 54310 009 MARC VICTOR Ophthalmological Prior Patient Start Comprehensive Care Ophthalmological Prior Patient Start Comprehensive Care 75335 009 MARC VICTOR Determination Of Refractive State Determination Of Refractive State 36730 009 MARC VICTOR Ophthalmological New Patient Start Comprehensive Care Ophthalmological New Patient Start Comprehensive Care 74868 009 MARC VICTOR Oral Surgery Tooth Extraction Oral Surgery Tooth Extraction 18913 008 ISAI PASCUAL 1984-wisdom teeth removed [facility] Laparoscopy With Excision Of Ectopic Laparoscopy With Excision Of Ectopic 06660 008 ISAI PASCUAL 1989 [facility] Treatment Of The Ankle Treatment Of The Ankle 07044 008 ISAI PASCUAL Pt reports ankle surgery x2 in 2002 [facility] Tonsillectomy Tonsillectomy 27541 008 ISAI PASCUAL 1996 [facility] Abdominal / Peritoneal Surgery Abdominal / Peritoneal Surgery 18649 008 ISAI PASCUAL [facility] [employer] Fitting Monofocals (Not For Aphakia) [employer] Fitting Monofocals (Not For Aphakia) 50945 008 PATRICIA CATES [facility] Determination Of Refractive State Determination Of Refractive State 44385 008 PATRICIA CATES [facility] Ophthalmological Prior Patient Start Comprehensive Care Ophthalmological Prior Patient Start Comprehensive Care 03608 008 PATRICIA CATES [facility] Whole Body Integumentary Photography, Physician Request Whole Body Integumentary Photography, Physician Request 29352 008 ZULLY RAM [facility] Gynecologic Surgery Gynecologic Surgery 26908 0 008 ISAI PASCUAL urine leakage surgery [facility] Whole Body Integumentary Photography, Physician Request Whole Body Integumentary Photography, Physician Request 12809 [facility], Physician Request Whole Body Integumentary Photography, Physician Request 71266 007 YO [facility] Supervised Injection Intramuscular Supervised Injection Intramuscular 39506 007 GLENN CARRASCO [facility] Screening papanicolaou smear; obtaining, preparing and conveyance of cervical or vaginal smear to laboratory 007 GLENN CARRASCO [facility] Determination Of Refractive State Determination Of Refractive State [phone] [facility] Fitting Monofocals (Not For Aphakia) [employer] [facility] Fitting Monofocals (Not For Aphakia) [phone] QUISPEBERTHAPRATEEK H [facility] Ophthalmological New Patient Start Comprehensive Care Ophthalmological New Patient Start Comprehensive Care [phone] [facility] Screening papanicolaou smear; obtaining, preparing and conveyance of cervical or vaginal smear to laboratory RAS DAVALOS [facility] Non-Physician Phone Call To Patient/Provider Brief (5-10min) Non-Physician Phone Call To Patient/Provider Brief (5-10min) [id number] HAZEL STODDARD [facility] Waiver services; not otherwise specified (NOS) SHARMAINE SARMIENTO [facility] Social History Combined list of available smoking, tobacco, and other social history from 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 Social History Type Response Date Comment [facility] e Sex Representation Female (finding) 12/31/2022 Unknown Organization Tobacco Frequent/Daily exposure to secondhand smoke in indoor/confined spaces Yes. Cigarette use: Yes-current everyday cigarette user. Average PACKS per day: (10 cigarettes = 0.5 packs) 0.5. Total years of smoking cigarettes: 45. Other Tobacco use: Yes-current everyday other tobacco user (not cigarettes). Other Tobacco type: vape. Ambulatory Pharmacy Sexual Orientation [facility] Gender identity [facility] This section is an empty social history section. DoD Assessment and Plan Combined list of future [...] tab(s), 0 total refill(s), Acute, 04/15/2025, Pharmacy: [facility], Urinary, complicated UTI/pyelonephritis [Not filled] Urinalysis [...] pharmaceutical intervention Ordered: Referral Request 2.0 - [facility] 8. V accination given Pneumovax given in office today. See Tech's Note. Orders: aspirin(aspirin 81 mg oral capsule), 1 cap(s), Oral, every 24 hr, # 90 cap(s), 2 total refill(s), Maintenance, Pharmacy: [facility] [Federal Rx: #90 last filled 04/10/25] atorvastatin(atorvastatin 40 mg oral tablet), 1 tab(s), Oral, Daily, for cholesterol, # 90 tab(s), 2 total refill(s), Maintenance, Pharmacy: [facility] [Federal Rx: #90 last filled 04/10/25] cholecalciferol(cholecalcifer ol 50 mcg (2000 intl units) oral capsule), 1 cap(s), Oral, Daily, # 90 cap(s), 3 total refill(s), Maintenance, Pharmacy: [facility] [Not filled] clobetasol topical(clobetasol 0.05% topical cream), 1 appl(s), Topical, BID, # 60 g, 1 total refill(s), Maintenance, Pharmacy: [facility] [Federal Rx: #60 last filled 04/10/25] fluticasone nasal(fluticasone 50 mcg/inh nasal spray), 100 mcg, Nostril-Both, Daily, # 48 g, 3 total refill(s), Maintenance, Pharmacy: [facility] [Federal Rx: #48 last filled 04/10/25] omeprazole(omeprazole 20 mg oral delayed release capsule), 1 cap(s), Oral, BID(AC), 30 to 60 minutes before meal, # 180 cap(s), 3 total refill(s), Maintenance, Pharmacy: [facility] [Federal Rx: #180 last filled 04/10/25] propranolol(propranolol 80 mg oral tablet), 1 tab(s), Oral, BID, # 180 tab(s), 2 total refill(s), Maintenance, Pharmacy: [facility] [Federal Rx: #180 last filled 04/10/25] Susan Rosa DO, [facility], [facility] Resident Provider Addendum by CRISTINO [...] ordering provider. Cristino Mondragon MD Extracted from:Title: Equipment Maint Tech [facility] Note Author: ALEXSANDRA DICK NP, Women's Health Date: 11/29/24 1. O steopenia R eviewed T-score and Frax risk percentage. Osteopenia. Discussed recommended fall prevention measures, continue with adequate daily calcium and Vitamin D. Rpt in 3 to 5 yrs, sooner if changes in risk factors. Pt v/u and agrees. 2. N icotine dependence E ncouraged smoking cessation Alexsandra Dick, [facility], [facility] Women s Health Nurse Practitioner, Board Certified [address] [place] [address] [employer] [address] [place] [address] comm: Extracted from:Title: FM- med refill Author: CANDY ESCALONA MD Date: 07/13/24 1. O ther disorders of bone density and structure I contacted the patient for medication refill - requesting Ca Carbonate 600mg and cholecalciferol 50mcg daily refilled. No concerns on the medications. Will follow at next well visit for hx of osteopenia. -Both meds refilled Maj RAZA [employer], MD [facility] Family Medicine, PGY-3 Orders: calcium carbonate(calcium carbonate [...] [employer], Family Medicine Physician Extracted from:Title: [facility] Equipment Maint Tech [facility] Note Author: ALEXSANDRA DICK [...] vaginal symptoms. Pt v/u and agrees. SALVADOR Cardoza [facility] Women s Health Nurse Practitioner, Board Certified [address] [place] [address] [employer] [address] [place] [address] comm: Extracted from:Title: [place] Equipment Maint Tech Office [facility] Note Author: ALEXSANDRA DICK NP [...] measures. 7. N icotine dependence Encouraged cessation. [facility] recommended Reviewed with patient discharge instructions. Written discharge instructions were provided to the patient. Recommended patient to follow up regularly for WWEs, s ooner as discussed above, or as needed for WH concerns, symptoms, or questions. Alexsandra Dick, [facility], [facility] Women s Health Nurse Practitioner, Board Certified [address] [place] [address] [facility] [place] [address] comm: Extracted from:Title: [facility] [place] Author: ASIA PAVON MD Date: 04/25/24 [...] Asia Pavon DO Family Medicine Faculty Physician [address] [place] [address], [facility] LLOYD Extracted from:Title: FM - lab f/u Author: [...] for fatigue if needed. Maj LUZ MARINA, ESTELAF, MD Danilo DESAI Family Medicine, PGY-2 Orders: aspirin(aspirin 81 mg oral capsule), 1 cap(s), Oral, every 24 hr, # 90 cap(s), 2 total refill(s), Maintenance, 1 cap(s) Oral every 24 hr, Pharmacy: [facility] [Not filled] atorvastatin(atorvastatin 40 mg oral tablet), 1 tab(s), Oral, Daily, for cholesterol, # 90 tab(s), 2 total refill(s), Maintenance, 1 tab(s) Oral Daily,Instr:for cholesterol, Pharmacy: [facility] [Not filled] omeprazole(omeprazole 20 mg oral delayed release tablet), 1 tab(s), Oral, BID, before a meal, # 180 tab(s), 1 total refill(s), Maintenance, 1 tab(s) Oral BID,Instr:before a meal, Pharmacy: [facility] [Not filled] propranolol(propranolol 80 mg oral tablet), 1 tab(s), Oral, BID, # 180 tab(s), 2 total refill(s), Maintenance, 1 tab(s) Oral BID, Pharmacy: [facility] [Not filled] Addendum by DELON BAIN [...] up follow up Ordered: Albumin, Random Ur [id number] Creatinine, Urine Microalbumin Panel, Urine 6. G [...] -Basic w/u - CMP, CBC, ferritin, TSH, CANDY ESCALONA, [place], [employer], MD Danilo SPARKSB Family Medicine, PGY-2 Ordered: CBC w/ Diff Ferritin Iron and TIBC [id number] Thyroid Stimulating Hormone Addendum by TRAVIS DORSEY [...] Scheduled TestsRadiologyCT Low Dose Lung Screening 04/21/25 05/23/2025 [id number] [facility] Assessment and Plan Extracted from:Title : 60 [...] pharmaceutical intervention Ordered: Referral Request 2.0 - [facility] 8. V accination given Pneumovax given in office today. See Tech's Note. Orders: aspirin(aspirin 81 mg oral capsule), 1 cap(s), Oral, every 24 hr, # 90 cap(s), 2 total refill(s), Maintenance, Pharmacy: [facility] [Federal Rx: #90 last filled 04/10/25] atorvastatin(atorvastatin 40 mg oral tablet), 1 tab(s), Oral, Daily, for cholesterol, # 90 tab(s), 2 total refill(s), Maintenance, Pharmacy: [facility] [Federal Rx: #90 last filled 04/10/25] cholecalciferol(cholecalcifer ol 50 mcg (2000 intl units) oral capsule), 1 cap(s), Oral, Daily, # 90 cap(s), 3 total refill(s), Maintenance, Pharmacy: [facility] [Not filled] clobetasol topical(clobetasol 0.05% topical cream), 1 appl(s), Topical, BID, # 60 g, 1 total refill(s), Maintenance, Pharmacy: [facility] [Federal Rx: #60 last filled 04/10/25] fluticasone nasal(fluticasone 50 mcg/inh nasal spray), 100 mcg, Nostril-Both, Daily, # 48 g, 3 total refill(s), Maintenance, Pharmacy: [facility] [Federal Rx: #48 last filled 04/10/25] omeprazole(omeprazole 20 mg oral delayed release capsule), 1 cap(s), Oral, BID(AC), 30 to 60 minutes before meal, # 180 cap(s), 3 total refill(s), Maintenance, Pharmacy: [facility] [Federal Rx: #180 last filled 04/10/25] propranolol(propranolol 80 mg oral tablet), 1 tab(s), Oral, BID, # 180 tab(s), 2 total refill(s), Maintenance, Pharmacy: [facility] [Federal Rx: #180 last filled 04/10/25] Susan Rosa DO, , [facility] Resident Provider Addendum by CRISTINO [...] ordering provider. Cristino Mondragon MD Extracted from:Title: Equipment Maint Tech Virtual Office Clinic Note Author: ALEXSANDRA DICK, PASTRY SUPERVISOR, Women's Health Date: 11/29/24 1. O steopenia R eviewed T-score and Frax risk percentage. Osteopenia. Discussed recommended fall prevention measures, continue with adequate daily calcium and Vitamin D. Rpt in 3 to 5 yrs, sooner if changes in risk factors. Pt v/u and agrees. 2. N icotine dependence E ncouraged smoking cessation Alexsandra Dick, SALVADOR, [facility] Women s Health Nurse Practitioner, Board Certified [address] [place] [address] [employer] [address] [place] [address] comm: Extracted from:Title: FM- med refill Author: CANDY ESCALONA MD Date: 07/13/24 1. O ther disorders of bone density and structure I contacted the patient for medication refill - requesting Ca Carbonate 600mg and cholecalciferol 50mcg daily refilled. No concerns on the medications. Will follow at next well visit for hx of osteopenia. -Both meds refilled Maj LUZ MARINA, [facility], [place] [facility], PGY-3 Orders: calcium carbonate(calcium carbonate [...] by the ordering provider. DO Jacques Rhoades [facility], Family Medicine Physician Extracted from:Title: [facility] Equipment Maint Tech Virtual Office Clinic Note Author: ALEXSANDRA DICK [...] v/u and agrees. Alexsandra Sumner. SALVADOR Dick [facility] Women s Health Nurse Practitioner, Board Certified [address] [place] [address] [employer] [address] [place] [address] comm: Extracted from:Title: [place] Equipment Maint Tech Office Clinic Note Author: ALEXSANDRA DICK NP [...] measures. 7. N icotine dependence Encouraged cessation. [facility] recommended Reviewed with patient discharge instructions. Written discharge instructions were provided to the patient. Recommended patient to follow up regularly for WWEs, s ooner as discussed above, or as needed for WH concerns, symptoms, or questions. Alexsandra Dick, [facility], [facility] Women s Health Nurse Practitioner, Board Certified [address] [place] [address] [employer] [address] [place] [address] comm: Extracted from:Title: [facility] Author: ASIA PAVON MD Date: 04/25/24 [...] Asia Pavon DO Family Medicine Faculty Physician [address] [place] [address], [facility] Danilo DESAI Extracted from:Title: FM - lab [...] up follow up Ordered: Albumin, Random Ur [id number] Creatinine, Urine Microalbumin Panel, Urine 6. G [...] -Basic w/u - CMP, CBC, ferritin, TSH, CANDY ESCALONA, , [employer], MD [employer] Family Medicine, PGY-2 Ordered: CBC w/ Diff Ferritin Iron and TIBC [id number] Thyroid Stimulating Hormone Addendum by TRAVIS DORSEY [...] Scheduled TestsRadiologyCT Low Dose Lung Screening 04/21/25 05/23/2025 [id number] [facility] Extracted from:Title : 60 [...] tab(s), 0 total refill(s), Acute, 04/15/2025, Pharmacy: [facility], Urinary, complicated UTI/pyelonephritis [Not filled] Urinalysis [...] 90 cap(s), 2 total refill(s), Maintenance, Pharmacy: [facility] [Federal Rx: #90 last filled 04/10/25] atorvastatin(atorvastatin 40 mg oral tablet), 1 tab(s), Oral, Daily, for cholesterol, # 90 tab(s), 2 total refill(s), Maintenance, Pharmacy: [facility] [Federal Rx: #90 last filled 04/10/25] cholecalciferol(cholecalcifer ol 50 mcg (2000 intl units) oral capsule), 1 cap(s), Oral, Daily, # 90 cap(s), 3 total refill(s), Maintenance, Pharmacy: [facility] [Not filled] clobetasol topical(clobetasol 0.05% topical cream), 1 appl(s), Topical, BID, # 60 g, 1 total refill(s), Maintenance, Pharmacy: [facility] [Federal Rx: #60 last filled 04/10/25] fluticasone nasal(fluticasone 50 mcg/inh nasal spray), 100 mcg, Nostril-Both, Daily, # 48 g, 3 total refill(s), Maintenance, Pharmacy: [facility] [Federal Rx: #48 last filled 04/10/25] omeprazole(omeprazole 20 mg oral delayed release capsule), 1 cap(s), Oral, BID(AC), 30 to 60 minutes before meal, # 180 cap(s), 3 total refill(s), Maintenance, Pharmacy: [facility] [Federal Rx: #180 last filled 04/10/25] propranolol(propranolol 80 mg oral tablet), 1 tab(s), Oral, BID, # 180 tab(s), 2 total refill(s), Maintenance, Pharmacy: [facility] [Federal Rx: #180 last filled 04/10/25] Susan Rosa DO, [facility], [facility] Resident Provider Addendum by CRISTINO [...] ordering provider. Cristino Mondragon MD Extracted from:Title: Equipment Maint Tech Virtual Office Clinic Note Author: ALEXSANDRA DICK NP, Women's Health Date: 11/29/24 1. O steopenia R eviewed T-score and Frax risk percentage. Osteopenia. Discussed recommended fall prevention measures, continue with adequate daily calcium and Vitamin D. Rpt in 3 to 5 yrs, sooner if changes in risk factors. Pt v/u and agrees. 2. N icotine dependence E ncouraged smoking cessation Alexsandra Dick, [facility], [facility] Women s Health Nurse Practitioner, Board Certified [address] [place] [address] [employer] [address] [place] [address] comm: Extracted from:Title: FM- med refill Author: CANDY ESCALONA MD Date: 07/13/24 1. O ther disorders of bone density and structure I contacted the patient for medication refill - requesting Ca Carbonate 600mg and cholecalciferol 50mcg daily refilled. No concerns on the medications. Will follow at next well visit for hx of osteopenia. -Both meds refilled Maj RAZA [employer], MD Scott [facility] Family Medicine, PGY-3 Orders: calcium carbonate(calcium carbonate 1,500 mg (elemental Ca 600 mg) oral tab), 600 mg, Oral, Daily, # 90 tab(s), 3 total refill(s), Maintenance, 600 mg Oral Daily, Pharmacy: [facility] [Not filled] cholecalciferol(cholecalcifer ol 50 mcg [...] [employer], Family Medicine Physician Extracted from:Title: [facility] Equipment Maint Tech Virtual Office Clinic Note Author: ALEXSANDRA DICK [...] vaginal symptoms. Pt v/u and agrees. SALVADOR [employer] Women s Health Nurse Practitioner, Board Certified [address] [place] [address] [employer] [address] [facility] [place] [address] comm: Extracted from:Title: [facility] Equipment Maint Tech Office Clinic Note Author: ALEXSANDRA DICK NP [...] measures. 7. N icotine dependence Encouraged cessation. [facility] recommended Reviewed with patient discharge instructions. Written discharge instructions were provided to the patient. Recommended patient to follow up regularly for WWEs, s ooner as discussed above, or as needed for WH concerns, symptoms, or questions. Alexsandra Dick, SALVADOR, [facility] Women s Health Nurse Practitioner, Board Certified [address] [place] [address] [employer] [address] [place] [address] comm: Extracted from:Title: [facility] Author: ASIA PAVON MD Date: 04/25/24 [...] Asia Pavon DO Family Medicine Faculty Physician [address] [place] [address], [facility] Danilo DESAI Extracted from:Title: - lab f/u Author: CANDY ESCALONA MD [...] for fatigue if needed. Maj LUZ MARINA, [facility], MD [facility] Family Medicine, PGY-2 Orders: aspirin(aspirin 81 mg oral capsule), 1 cap(s), Oral, every 24 hr, # 90 cap(s), 2 total refill(s), Maintenance, 1 cap(s) Oral every 24 hr, Pharmacy: [facility] [Not filled] atorvastatin(atorvastatin 40 mg oral tablet), 1 tab(s), Oral, Daily, for cholesterol, # 90 tab(s), 2 total refill(s), Maintenance, 1 tab(s) Oral Daily,Instr:for cholesterol, Pharmacy: [facility] [Not filled] omeprazole(omeprazole 20 mg oral delayed release tablet), 1 tab(s), Oral, BID, before a meal, # 180 tab(s), 1 total refill(s), Maintenance, 1 tab(s) Oral BID,Instr:before a meal, Pharmacy: [facility] [Not filled] propranolol(propranolol 80 mg oral tablet), 1 tab(s), Oral, BID, # 180 tab(s), 2 total refill(s), Maintenance, 1 tab(s) Oral BID, Pharmacy: [facility] [Not filled] Addendum by DELON BAIN [...] needed, no longer than 2 weeks, Pharmacy: [facility] [Not fille 5. H TN - Hypertension On propranolol - controlled. - Maintenance Labs: RFP, ACR, A1C, Lipid Panel ordered - F/u in 2-3 weeks for work up follow up Ordered: Albumin, Random Ur [id number] Creatinine, Urine Microalbumin Panel, Urine 6. G [...] CMP, CBC, ferritin, TSH, Maj LUZ MARINA, ESTELAFMD [employer] Family Medicine, PGY-2 Ordered: CBC w/ Diff Ferritin Iron and TIBC [id number] Thyroid Stimulating Hormone Addendum by TRAVIS DORSEY [...] Scheduled TestsRadiologyCT Low Dose Lung Screening 04/21/25 05/23/2025 Unknown Organization Functional Status Combined list of recent functional and cognitive assessments recorded at Department of Defense and Veterans Affairs (VA).VA Functional [place] Measurement (FIM) Scale: 1 = Total Assistance (Subject = 0% +), 2 = Maximal Assistance (Subject = 25% +), 3 = Moderate Assistance (Subject = 50% +), 4 = Minimal Assistance (Subject = 75% +), 5 = Supervision, 6 = Modified [place] (Device), 7 = Complete [place] (Timely, Safely). Assessment Date/Time Source Assessment Type Assessment Skill Assessment Score Assessment Details No data available for this section
[2025-05-23 16:27] LABS: Add Urine Microscopic? YES; Appearance Urine Cloudy (Clear); Glucose Urine UA Negative (Negative); Leukocyte Esterase Ur 3+ LEU/UL (Negative); Nitrate Urine Negative (Negative); Specific Grav Ur 1.020 (1.001-1.035)
[2025-05-23 16:38] LABS: INR 1.0; Prothrombin Time 12.9 Seconds (11.1-14.7)
[2025-05-23 16:39] LABS: Partial Thromboplastin Time 25.1 Seconds (22.3-36.8)
== END 2025-05-23 15:56 | disposition home or self-care (01) ==
LOC: ANHLAB 15:56
PROVIDERS: Visit Provider Urology
DX: Z01.818 Encounter for other preprocedural examination (principal); N20.0 Calculus of kidney; R82.90 Unspecified abnormal findings in urine
CPT/HCPCS: 36415; 81001; 85610; 85730; 87086

== ENCOUNTER 2025-05-26 00:13 | Day surgery (SDC) | payer OTHER, SELFPAY ==
--- NOTE | 2025-05-16 09:59 | PC.NURSE ---
Report to the Outpatient Waiting Room, entrance under the green pavilion located off [facility], at time _0730_ on date _[id number]_. Planned Procedure Time: _0930_.? Time changes happen often and if your time is changed the preop area will call you the afternoon before. - You and your visitor will be asked to self-screen and do not enter if you have any COVID symptoms. Please call surgeon if you need to reschedule. - A mask is optional within the hospital at this time. Patients may have clear liquids (water, carbonated beverages, clear teas, apple juice) until 3 hours prior to surgery with a maximum of 20 ounces. - No food from midnight until time of surgery and no smoking, or chewing tobacco (or any form of nicotine). No chewing gum, candy or mints. Take only the following medications with a SIP of water on the morning of surgery: ___Propanolol DO NOT STOP ANY OF YOUR OTHER PRESCRIPTION MEDICATIONS PRIOR TO SURGERY EXCEPT THE FOLLOWING Hold all vitamins and supplements for 3 days per anesthesiologist. Medications to discontinue per physician Date to take last rslu____[id number]___ Please no make-up, nail vietnamese, hairspray, perfume, deodorant, or body powder the day of surgery.? No jewelry (including any body piercings) or valuables the day of surgery, leave them at home.? Please take a shower or bath the night before, or the morning of, surgery with an antibacterial soap.? Wear comfortable, loose fitting clothing. - Jewelry must be removed prior to entering the operating room.? Rings and piercings that are not removed may be cut off. - The hospital will not accept responsibility for valuables.? - Please leave all valuables, including medications, at home the day of surgery. If you are going home after surgery, a licensed driver trainer must drive you home.? - NO public transportation without another adult if you receive anesthesia. - We recommend that an adult stay with you for 24 hours following discharge. - We also recommend that you do not drive, make important decision, drink alcoholic beverages, or take any drugs that were not prescribed by your health care provider for at least 24 hours after your discharge time. Follow any additional instructions given to you from your surgeon. Telephone instructions given to __Mona___and asked if any additional questions and then verbalized understanding. Patient advised to call surgeon office or pre surgery nurse liaison [phone] if any additional questions.
[2025-05-16 10:11] VITALS: BMI 32.6
--- NOTE | 2025-05-18 14:28 | P.HP_ITS ---
History of Present Illness History of Present Illness Consent: Risks, benefits, and alternatives have been discussed and questions answered. Patient agrees to proceed with procedure. Chief complaint: right renal stone Narrative: Patricia Garcia is a 60 year old female who tolerated recent left ESWL for 10 mm left lower calyceal stone. ?The stone is still visible but much much less calcified suggesting that it has fractured into several small pieces. ?She has a residual 6 mm stone in her right kidney which she would like to treat with ESWL Review of Systems Review of Systems: All systems reviewed & are unremarkable except as noted in HPI and below PMFSH Social History Social History Years smoked: 45 Smoking status: Current every day smoker Tobacco type: cigarettes Alcohol intake: current Substance use: never Living arrangements: with family Spiritual care concerns: No Meds Home Medications and Allergies Home Medications ?Medication ?Instructions ?Recorded ?Confirmed ?Type aspirin 81 mg tablet,delayed 81 mg PO DAILY 03/01/25 05/16/25 History release atorvastatin 40 mg tablet 40 mg PO HS 03/01/25 05/16/25 History clobetasol 0.05 % topical cream 1 applic topical .bi weekly PRN 03/01/25 05/16/25 History rash cranberry 500 mg capsule 500 mg PO DAILY 03/01/25 05/16/25 History estradiol 0.01% (0.1 mg/gram) 1 appful vaginal .bi-weekly 03/01/25 05/16/25 History vaginal cream modafinil 200 mg tablet 200 mg PO DAILY 03/01/25 05/16/25 History multivitamin-ferrous 1 tablet PO DAILY 03/01/25 05/16/25 History fumarate-folic acid 18 mg-400 mcg tablet (Centrum Women) omega 0-vdh-olb-fish oil 1,200 mg 1 cap PO DAILY 03/01/25 05/16/25 History (144 mg-216 mg) capsule (Fish Oil) omeprazole 20 mg capsule,delayed 20 mg PO DAILY 03/01/25 05/16/25 History release propranolol 80 mg tablet 80 mg PO DAILY 03/01/25 05/16/25 History vibegron 75 mg tablet (Gemtesa) 75 mg PO DAILY 03/01/25 05/16/25 History hydrocodone 5 mg-acetaminophen 325 1 - 2 tablet PO Q6H PRN pain #20 03/10/25 05/16/25 Rx mg tablet tabs calcium carbonate 500 mg PO DAILY 05/05/25 05/16/25 History cholecalciferol (vitamin D3) 125 250 mcg PO DAILY 05/05/25 05/16/25 History mcg (5,000 unit) tablet (Vitamin D3) Allergies Allergy/AdvReac Type Severity Reaction Status Date / Time nitrofurantoin Allergy Intermediate Rash Verified 05/16/25 10:06 Exam Const: General: no acute distress Resp: Effort & Inspection: normal respiratory effort GI: Inspection: non-distended GI Palp: No abdominal tenderness and No Guarding due to palpation present (GI) Auscultation: normal bowel sounds Assessment and Plan Assessment and plan (1) Bilateral kidney stones: Code(s): N20.0 - Calculus of kidney Status: Acute Assessment and Plan: * Right ESWL
[2025-05-26] VITALS (7 sets, daily range): BP systolic 110–140; BP diastolic 75–95; PULSE 61–74; RESP 14–20; TEMP 36.3–36.6; O2SAT 95–98; BMI 32.5
--- NOTE | ~2025-05-26 | XR_ITS ---
XR abdomen/kub 1V 05/26/2025 07:58 Indication: Renal stones. ESWL. Procedure: KUB Comparison: 05/12/2025 Findings: Stable bilateral renal stones. Bowel gas pattern nonobstructive. There are pelvic phlebolit hs unchanged. No stones identified in the expected course of ureters. Impression: 1: Bilateral nephrolithiasis. Reviewed, dictated and finalized at location [] Impression: 1: Bilateral nephrolithiasis.
--- OUTSIDE RECORDS SUMMARY | 2025-05-26 00:18 | XMS_ITS | Referral Summary ---
Author Organization [address] Address [address] [place] [id number] Care Team Providers Care Primary Class Teacher Name Role Phone Radha Fermin Primary Care Provider [phone] Allergies No known active allergies Medications aspirin [...] on file Legal Sex Female 8:04 PM SALES REPRESENTATIVE SUPERVISOR Gender Identity Not on file Sexual Orientation [...] MAMMOGRAM BILATERAL W THEO 11/07/2019 3:26 PM SALES REPRESENTATIVE SUPERVISOR from Last 3 Months or Most Recently Relevant to Health Maintenance Results * Screening Mammogram Bilateral W Theo (11/07/2019 3:26 PM SALES REPRESENTATIVE SUPERVISOR) Anatomical Region Laterality Modality Breast Bilateral Mammography 11/07/2019 3:49 PM SALES REPRESENTATIVE SUPERVISOR Narrative 11/11/2019 8:09 AM SALES REPRESENTATIVE SUPERVISOR Patient Name: CHALINO AUSTIN Dr: Yanique Walker CNP, D.O.B: 1965 Exam Date: 11/07/19 1526 Age: 54 Sex: Female MR#: [id number] Loc: [facility]#: [id number] RADIOLOGY REPORT Order #[id number] [facility] Marisol Bilat Screening 3D Signed - [...] made to exam dated: 02/16/2018 mammogram - [place]. BREAST TISSUE: There are scattered areas of [...] age 40, based on guidelines of the [place] [employer] (ACR Practice Parameter for the Performance of Screening and Diagnostic Mammography) and [place] [employer]etricians and [employer]nec[employer]. For women with an elevated risk of breast cancer, please refer to the ACR Practice Parameter for specific screening recommendations. The patient will be entered into a reminder system with a target due date of 1 year for her next screening exam. Electronically signed by: Julian Hastings rl/ebonie:11/11/2019 08:09:38 Repair Specialist: Crys URIBE (Perfecto)(Krzysztof), [facility] letter sent: Normal Exam Reading location: BI-RADS: 2 Benign REPORT ELECTRONICALLY SIGNED IN OTHER VENDOR SYSTEM Resulting Agency Comment O Procedure Note Julian Toro MD - 11/11/2019 Patient Name: CHALINO AUSTIN Dr: Yanique Walker CNPOGonzalezB: 1965 Exam Date: 11/07/19 1526 Age: 54 Sex: Female MR#: [id number] Loc: RADIOLOGY REPORT Order #[id number] [facility] Marisol Bilat Screening 3D Signed - [...] is made to exam dated: 02/16/2018 mammogram -[place]. BREAST TISSUE: There are scattered areas of [...] age 40, based on guidelines of the [place] [employer] (ACR Practice Parameter for the Performance of Screening and Diagnostic Mammography) and [place] [employer]. For women with an elevated risk of breast cancer, pleaserefer to the ACR Practice Parameter for specific screening recommendations. The patient will be entered into a reminder system with a target due dateof 1 year for her next screening exam. Electronically signed by: Julian Hastings rl/ebonie:11/11/2019 08:09:38 Repair Specialist: Crys Kumar)(Krzysztof), [facility] letter sent: Normal Exam Reading location: BI-RADS: 2 Benign REPORT ELECTRONICALLY SIGNED IN OTHER VENDOR SYSTEM Yanique Walker MANAGEMENT SME IMG MAMMO PROCEDURES Final Result from Last 3 Months or Most Recently Relevant to Health Maintenance Insurance [employer] [facility] Care Teams Primary Class Teacher Relationship Specialty Start Date End Date Radha Fermin PA [address] [place] [address] PCP - General Physician Handstitching Machine Armhole Feller 05/27/21
--- OUTSIDE RECORDS SUMMARY | 2025-05-26 00:18 | XMS_ITS | Clinical Summary ---
Author Organization [facility] [employer] Address [address] [place] [address] Care Team Providers Care Asset Liability Analyst Name Role Phone [address] Primary Care Prov ider Source Comments [facility] [employer],non-owned Affiliates and Associated Physician Practices is amultiple site organization consisting of ambulatory clinics and hospital sitesin [place], [place], [place] and [place]. This disclosure is being madepursuant to the Care Everywhere program and may not contain all information available regarding this patient. Last updated 18.[facility] [employer] Allergies No known active allergies Medications * [...] Relation Name Comments Hypertension Mother Cancer Other [place] Other Relation Name Status Comments Mother Other [...] on file Legal Sex Female 2:04 PM MIRROR PAINTER Gender Identity Not on file Sexual Orientation Not on file Last Filed Vital Signs Vital Sign Reading Time Taken Comments Blood Pressure 114/62 09/02/2012 12:56 PM MIRROR PAINTER Pulse 89 09/02/2012 12:56 PM MIRROR PAINTER Temperature 36.9 C (98.4 F) 09/02/2012 12:56 PM MIRROR PAINTER Respiratory Rate 20 09/02/2012 12:56 PM MIRROR PAINTER Oxygen Saturation 97% 09/02/2012 12:56 PM MIRROR PAINTER Inhaled Oxygen Concentration - - Weight 83.9 kg (185 lb) 09/01/2012 7:20 AM MIRROR PAINTER Height 170.2 cm (5' 7) 09/01/2012 7:20 AM MIRROR PAINTER Body Mass Index 28.98 09/01/2012 7:20 AM MIRROR PAINTER Plan of Treatment Health Maintenance Due Date [...] 8:35 AM 09/01/2012 11:54 AM Care Teams Asset Liability Analyst Relationship Specialty Start Date End Date [facility] [address] [place], [place] [address] PCP - General 09/27/19
--- OUTSIDE RECORDS SUMMARY | 2025-05-26 00:18 | XMS_ITS | Encounter Summary ---
Author Organization [facility] Address [address] [place] [address] Care Team Providers Care Excelsior Machine Tender Name Role Phone Radha Callaway Primary Care Provider [phone] None, Provider Primary Care Provider Harley Thrasher MD Primary Care Provider Katharine vailable Encounter Details Date Type Department Care Team (Late st Contact Info) Description 09/18/2020 Prep for Procedure [facility] [place] [address] Mo Wooten MD [address] [id number] Social History Tobacco Use Types Packs/Day Years Used Date Smoking Tobacco: Every Day Cigarettes Smokeless Tobacco: Never Alcohol Use Standard Drinks/Week Comments Not Currently 0 (1 standard drink = 0.6 oz pur e alcohol) 3 times year Comments Unknown Sex and Gender Information Value Date Recorded Sex Assigned at Female 11/09/2024 10:20 AM FUR PLUCKER Legal Sex Female 4:33 PM CDT Gender Identity Not on file Sexual Orientation Not on file COVID-19 Exposure Response Date Recorded In the last month, have you been in contact with someone who was confirmed or suspected to have Coronavirus / COVID-19? Yes 09/18/2020 8:30 AM FUR PLUCKER documented as of this encounter Plan of Treatment Not on file documented as of this encounter Visit Diagnoses Diagnosis Hematochezia- Primary Blood in stool documented in this encounter Additional Health Concerns Infection Onset Date Last Indicated Resolved Time COVID-19 Rule Out 09/23/2020 09/23/2020 09/24/2020 11:56 AM FUR PLUCKER COVID-19 Rule Out 11/23/2020 11/23/2020 11/24/2020 4:31 PM FUR PLUCKER COVID-19 Rule Out 07/09/2021 07/09/2021 07/10/2021 11:47 AM CDT COVID-19 Rule Out 05/27/2023 05/27/2023 05/28/2023 7:24 AM CDT COVID-19 Rule Out 11/24/2023 11/24/2023 11/24/2023 6:55 PM FUR PLUCKER COVID-19 Rule Out 01/17/2024 01/17/2024 01/17/2024 4:46 PM CDT COVID-19 Rule Out 02/16/2024 02/16/2024 02/16/2024 3:01 PM CDT COVID-19 Rule Out 11/09/2024 11/09/2024 11/09/2024 11:14 AM FUR PLUCKER documented as of this encounter Care Teams Excelsior Machine Tender Relationship Specialty Start Date End Date Radha Callaway PA [address] [place] [address] PCP - General PHYSICIAN MICROSTRATEGY DEVELOPER 11/15/20 05/26/23 None, MD Phillip PCP - General UNKNOWN PHYSICIAN SPECIALTY 05/27/23 02/15/24 Harley Campos MD PCP - General FAMILY PRACTICE 02/16/24 documented as of this encounter
--- OUTSIDE RECORDS SUMMARY | 2025-05-26 00:18 | XMS_ITS | Clinical Summary ---
Author Organization [address] Address [address] [place] [phone] Care Team Providers Care Bookmobile Librarian Name Role Phone Radha Fermin Primary Care Provider [phone] Allergies No known active allergies Medications aspirin [...] on file Legal Sex Female 8:04 PM PI/SENIOR RESEARCH ASSOCIATE Gender Identity Not on file Sexual Orientation [...] MAMMOGRAM BILATERAL W THEO 11/07/2019 3:26 PM PI/SENIOR RESEARCH ASSOCIATE from Last 3 Months or Most Recently Relevant to Health Maintenance Results * Screening Mammogram Bilateral W Theo (11/07/2019 3:26 PM PI/SENIOR RESEARCH ASSOCIATE) Anatomical Region Laterality Modality Breast Bilateral Mammography 11/07/2019 3:49 PM PI/SENIOR RESEARCH ASSOCIATE Narrative 11/11/2019 8:09 AM PI/SENIOR RESEARCH ASSOCIATE Patient Name: CHALINO AUSTIN Ordering Dr: Yanique Walker CNP, D.O.B: 1965 Exam Date: 11/07/19 1526 Age: 54 Sex: Female MR#: [id number] Loc: RADIOLOGY REPORT Order #[id number] [facility] Marisol Bilat Screening 3D Signed - MG [...] made to exam dated: 02/16/2018 mammogram - [place]. BREAST TISSUE: There are scattered areas of [...] age 40, based on guidelines of the [place] [employer] (ACR Practice Parameter for the Performance of Screening and Diagnostic Mammography) and [place] [employer]ians and Gynec[employer]. For women with an elevated risk of breast cancer, please refer to the ACR Practice Parameter for specific screening recommendations. The patient will be entered into a reminder system with a target due date of 1 year for her next screening exam. Electronically signed by: Julian chung/ebonie:11/11/2019 08:09:38 Rental Management Trainee: Crys Sanchez (R)), [facility] letter sent: Normal Exam Reading location: BI-RADS: 2 Benign REPORT ELECTRONICALLY SIGNED IN OTHER VENDOR SYSTEM Resulting Agency Comment O Procedure Note Julian Toro MD - 11/11/2019 Patient Name: NORMANCHALINO Dr: Yanique Walker CNP, D.O.B: 1965 Exam Date: 11/07/19 1526 Age: 54 Sex: Female MR#: [id number] Loc: RADIOLOGY REPORT Order #[id number] [facility] Marisol Bilat Screening 3D Signed - MG [...] is made to exam dated: 02/16/2018 mammogram -[place]. BREAST TISSUE: There are scattered areas of [...] age 40, based on guidelines of the [place] [employer] (ACR Practice Parameter for the Performance of Screening and Diagnostic Mammography) and [place] [employer]nec[employer]. For women with an elevated risk of breast cancer, pleaserefer to the ACR Practice Parameter for specific screening recommendations. The patient will be entered into a reminder system with a target due dateof 1 year for her next screening exam. Electronically signed by: Julian Hastings rl/ebonie:11/11/2019 08:09:38 Rental Management Trainee: Crys Kumar)(Krzysztof), [facility] letter sent: Normal Exam Reading location: BI-RADS: 2 Benign REPORT ELECTRONICALLY SIGNED IN OTHER VENDOR SYSTEM Yanique Walker NP IMG MAMMO PROCEDURES Final Result from Last 3 Months or Most Recently Relevant to Health Maintenance Insurance [facility] Care Teams Bookmobile Librarian Relationship Specialty Start Date End Date Radha Fermin PA [address] [place], [place] [address] PCP - General Physician Weaving Inspector 05/27/21
--- OUTSIDE RECORDS SUMMARY | 2025-05-26 00:18 | XMS_ITS | Clinical Summary ---
Author Organization [facility] Address [facility] [place] [address] Care Team Providers Care Automatic Lump Making Machine Tender Name Role Phone Harley Campos MD Primary Care Provider Katharine vailable Allergies No known active allergies Medications modafinil [...] CDT - 03/07/2025 7:30 AM CDT Emergency [facility] [place] [address] Laurel Schroeder MD Auer, Charles E, MD Skin Problem Discharge Disposition: Home or Self Care (Routine Discharge) 03/07/2025 Travel 03/04/2025 Results Follow-Up [facility] [address] [place] [address] Sandra Purdy MD CULTURE URINE 03/01/2025 2:48 PM CDT - 03/01/2025 3:20 PM CDT Hospital Encounter [facility] [address] [place] [address] Dominga Cee DO Urinary Symptoms; Sinus Problem [...] Sex Assigned at Female 11/09/2024 10:20 AM HOTSHOT SUPERINTENDENT Legal Sex Female 4:33 PM CDT Gender [...] COMPREHENSIVE METABOLIC PANEL (03/07/2025 5:20 AM CDT) [facility] GLUCOSE 110(H) 70 - 99 MG/DL 03/07/2025 6:13 AM CDT [facility] BUN 19(H) 7 - 18 MG/DL 03/07/2025 6:13 AM CDT [facility] CREATININE S/P/B 0.62 0.55 - 1.02 MG/DL 03/07/2025 6:13 AM CDT [facility] SODIUM S/P/B 138 136 - 145 MMOL/L 03/07/2025 6:13 AM CDT [facility] POTASSIUM S/P/B 3.8 3.5 - 5.1 MMOL/L 03/07/2025 6:13 AM CDT [facility] CHLORIDE S/P/B 110 97 - 115 MMOL/L 03/07/2025 6:13 AM CDT [facility] CO2 21.4 21 - 32 MMOL/L 03/07/2025 6:13 AM CDT [facility] CALCIUM S/P/B 9.9 8.5 - 10.1 MG/DL 03/07/2025 6:13 AM CDT [facility] BILIRUBIN TOTAL S/P/B 0.4 0.2 - 1.2 MG/DL 03/07/2025 6:13 AM CDT [facility] Comment: THIS ASSAY IS NOT RECOMMENDED FOR PATIENTS UNDERGOING TREATMENT WITH ELTROMBOPAG DUE TO THE POTENTIAL FOR FALSELY ELEVATED RESULTS. TOTAL PROTEIN S/P/B 7.5 6.4 - 8.2 G/DL 03/07/2025 6:13 AM CDT [facility] ALBUMIN S/P/B 3.6 3.4 - 5.0 G/DL 03/07/2025 6:13 AM CDT [facility] AST 26 15 - 37 U/L 03/07/2025 6:13 AM CDT [facility] ALT 39 14 - 55 U/L 03/07/2025 6:13 AM CDT [facility] ALKALINE PHOSPHATASE S/P/B 95 50 - 136 U/L 03/07/2025 6:13 AM T [facility] ANION GAP 6.6 2 - 10 MMOL/L 03/07/2025 6:13 AM T [facility] BUN CREATININE RATIO 30.8(H) 6 - 26 03/07/2025 6:13 AM T [facility] A/G RATIO 0.9(L) 1.0 - 2.0 RATIO 03/07/2025 6:13 AM T [facility] GFR ESTIMATE >90 >90 ML/MIN/1.7 3 M2 03/07/2025 6:13 AM T [facility] Comment: NOTE: eGFR is not [...] Laurel Schroeder MD LABORATORY Final Resul t [facility] [address] [place] [address], [place] [phone] * (ABNORMAL) CBC W/DIFF AUTOMATED (03/07/2025 5:20 AM CDT) [facility] WBC 5.55 4.5 - 11.0 x10'3/uL 03/07/2025 5:52 AM CDT [facility] RBC 5.10 4.20 - 5.40 x10'6/uL 03/07/2025 5:52 AM CDT [facility] HGB 15.1 12.0 - 16.0 G/DL 03/07/2025 5:52 AM CDT [facility] HCT 46.3 38.0 - 48.0 % 03/07/2025 5:52 AM CDT [facility] MCV 90.8 81.0 - 99.0 FL 03/07/2025 5:52 AM CDT [facility] MCH 29.6 27.0 - 31.0 PG 03/07/2025 5:52 AM CDT [facility] MCHC 32.6 32.0 - 36.0 G/DL 03/07/2025 5:52 AM CDT [facility] RDW 13.0 11.5 - 14.5 % 03/07/2025 5:52 AM CDT [facility] PLT 233 130 - 400 x10'3/uL 03/07/2025 5:52 AM CDT [facility] MPV 11.1 9.3 - 12.2 FL 03/07/2025 5:52 AM CDT [facility] DIFFERENTIAL TYPE AUTOMATED DIFFERENTIAL 03/07/2025 5:52 AM CDT [facility] NEUTROPHILS % 63.2 % 03/07/2025 5:52 AM CDT [facility] LYMPHOCYTES % 31.7 % 03/07/2025 5:52 AM CDT [facility] MONOCYTES % 3.6 % 03/07/2025 5:52 AM CDT [facility] EOSINOPHILS 0.9 % 03/07/2025 5:52 AM CDT [facility] BASOPHILS 0.2 % 03/07/2025 5:52 AM CDT [facility] IMMATURE GRANS % 0.4 % 03/07/20 5:52 AM CDT [facility] ABS. NEUTROPHILS 3.51 1.80 - 7.70 x10'3/uL 03/07/2025 5:52 AM CDT [facility] ABS. LYMPHOCYTES 1.76 1.00 - 4.80 x10'3/uL 03/07/2025 5:52 AM CDT [facility] ABS. MONOCYTES 0.20(L) 0.24 - 0.86 x10'3/uL 03/07/2025 5:52 AM CDT [facility] ABS. EOSINOPHILS 0.05 0.04 - 0.36 x10'3/uL 03/07/2025 5:52 AM CDT [facility] ABS. BASOPHILS 0.01 0.01 - 0.08 x10'3/uL 03/07/2025 5:52 AM CDT [facility] ABS. IMMATURE GRANULOCYTES 0.02 0.00 - 0.49 x10'3/uL 03/07/2025 5:52 AM CDT [facility] 03/07/2025 5:20 AM CDT Laurel Schroeder MD LABORATORY Final Resul t [facility] [address] [place] [address], [place] [phone] * (ABNORMAL) CULTURE URINE (03/01/2025 3:00 PM CDT) SPEC DESCRIPTION URINE CLEAN CATCH 03/01/2025 3:03 PM CDT [facility] SPECIAL REQUESTS NO SPECIAL REQUEST 03/01/2025 3:03 PM CDT [facility] CULTURE RESULT 50,000-100, 000 COL/ML ENTEROBACTE R CLOACAE COMPLEX (A) 03/04/2025 7:42 AM CDT [facility] URINE SPECIMEN OBTAINED BY CLEAN [...] MICROBIOLOGY - GENERAL ORDERA BLES Final Result [facility] [address] [place] [address], [place] [phone] [facility] [place] [address], [place] * (ABNORMAL) URINALYSIS AUTO DIP (03/01/2025 3:00 PM CDT) SPECIMEN TYPE URINE CLEAN CATCH 03/01/2025 3:03 PM CDT [facility] COLOR (U) YELLOW 03/01/2025 3:10 PM CDT [facility] TRANSPARENCY CLOUDY 03/01/2025 3:10 PM CDT [facility] SPECIFIC GRAVITY (U) 1.025 1.001 - 1.030 03/01/2025 3:10 PM CDT [facility] U PH 5.5 5.0 - 9.0 03/01/2025 3:10 PM CDT [facility] LEUKOCYTES (U) MODERATE(A) NEGATIVE 3:10 PM CDT [facility] NITRITES POSITIVE(A) NEGATIVE 03/01/2025 3:10 PM CDT [facility] PROTEIN RANDOM (U) 100(H) <30 MG/DL 03/01/2025 3:10 PM CDT [facility] GLUCOSE (U) NEGATIVE NEGATIVE MG/DL 03/01/2025 3:10 PM CDT [facility] KETONES MG/DL (U) NEGATIVE NEGATIVE MG/DL 03/01/2025 3:10 PM CDT [facility] UROBILINOGEN 0.2(A) NEGATIVE MG/DL 03/01/2025 3:10 PM CDT [facility] BILIRUBIN (U) NEGATIVE NEGATIVE MG/DL 03/01/2025 3:10 PM CDT [facility] BLOOD (U) MODERATE(A) NEGATIVE 03/01/2025 3:10 PM CDT [facility] URINE SPECIMEN OBTAINED BY CLEAN CATCH PROCEDURE / Unknown 03/01/2025 3:00 PM CDT Dominga Cee DO URINE ORDERABLES Final Result Performing Organization Address [facility]/ZIP Co de Phone Number [facility] [address] [place], [place] [address], * STREP A RAPID (03/01/2025 3:00 PM CDT) SPECIMEN TYPE THROAT 03/01/2025 3:[address] [facility] RAPID STREP TEST NEGATIVE NEGATIVE 03/01/2025 3:[address] [facility] STRUCTURE OF ANTERIOR PORTION OF NECK / Unknown 03/01/2025 3:00 PM CDT Dominga Cee DO MICROBIOLOGY - GENERAL ORDERA BLES Final Result Performing Organization Address [facility] [place] [address], from Last [address] Care Teams Automatic Lump Making Machine Tender Relationship Specialty Start Date End Date Harley Campos MD PCP - General FAMILY PRACTICE 02/16/24
--- OUTSIDE RECORDS SUMMARY | 2025-05-26 00:18 | XMS_ITS | Encounter Summary ---
Author Organization [facility] Address [address] [place] [address] Care Team Providers Care Senior Operations Analyst Name Role Phone Radha Callaway Primary Care Provider [phone] None, Provider Primary Care Provider Harley Thrasher MD Primary Care Provider Katharine vailable Encounter Details Date Type Department Care Team (Late st Contact Info) Description 11/15/2020 Prep for Procedure [facility] Pre-Admission Testing [address] [place], [place] [id number] Giselle Maddox MD [address] [place] [address] [place] [address] Social History Tobacco Use Types Packs/Day Years Used Date Smoking Tobacco: Every Day Cigarettes 0.5 40 Smokeless Tobacco: Never Alcohol Use Standard Drinks/Week Comments Not Currently 0 (1 standard drink = 0.6 oz pur e alcohol) 3 times year Comments No Sex and Gender Information Value Date Recorded Sex Assigned at Female 11/09/2024 10:20 AM HOGSHEAD MAT ASSEMBLER Legal Sex Female 4:33 PM CDT Gender Identity Not on file Sexual Orientation Not on file COVID-19 Exposure Response Date Recorded In the last month, have you been in contact with someone who was confirmed or suspected to have Coronavirus / COVID-19? No / Unsure 11/15/2020 3:07 PM HOGSHEAD MAT ASSEMBLER documented as of this encounter Plan of Treatment Not on file documented as of this encounter Results * PRE-SURGICAL/PRE-PROCEDURE CORONAVIRUS (COVID 19) (11/23/2020 10:30 AM HOGSHEAD MAT ASSEMBLER) CORONAVIRUS SARS COV 2 PCR (RESP) NOT DETECTED NOT DETECTED 11/24/2020 4:31 PM HOGSHEAD MAT ASSEMBLER [facility] Comment: A Not Detected (negative) [...] providers and patients using the following websites: https://www.[employer]/home/Covid-19/HCP/NAAT/fact-sheet2 https://www.[employer]/home/Covid-19/Patients/NAAT/ fact-sheet2 This test has been authorized by the FDA under an Emergency Use Authorization (EUA) for use by authorized laboratories. Due to the current public health emergency, [facility] is receiving a high volume of samples [...] about COVID-19 can be found at the [employer] website: www.[employer]/Covid19. Test performed at [facility] [address] [place] [address] Director: RHYS GARCIA DO,MPH FIRST TEST NO 11/23/2020 12:43 PM HOGSHEAD MAT ASSEMBLER [facility] EMPLOYED IN [facility] NO 11/23/2020 12:43 PM HOGSHEAD MAT ASSEMBLER [facility] SYMPTOMATIC DEFINED BY CDC NO 11/23/2020 12:43 PM HOGSHEAD MAT ASSEMBLER [facility] DATE OF SYMPTOM ONSET UNKNOWN 11/23/2020 1:15 PM HOGSHEAD MAT ASSEMBLER [facility] HOSPITALIZATION STATUS NO 11/23/2020 12:43 PM HOGSHEAD MAT ASSEMBLER [facility] PATIENT IN ICU NO 11/23/2020 12:43 PM HOGSHEAD MAT ASSEMBLER [facility] NO 11/23/2020 12:43 PM HOGSHEAD MAT ASSEMBLER [facility] NOT 11/23/2020 12:43 PM HOGSHEAD MAT ASSEMBLER [facility] PATIENT'S RACE WHITE OR 11/23/2020 12:43 PM HOGSHEAD MAT ASSEMBLER [facility] ETHNICITY NONHISPANIC 11/23/2020 12:43 PM HOGSHEAD MAT ASSEMBLER [facility] SOURCE (QST) NASOPHARYNGEAL SWAB 11/23/2020 12:43 PM HOGSHEAD MAT ASSEMBLER [facility] NASOPHARYNGEAL SWAB / Unknown 11/23/2020 10:30 AM HOGSHEAD MAT ASSEMBLER us Giselle Maddox MD MICROBIOLOGY - GENERAL ORDERABLE S Final Result [facility] [address] [place] [address], [facility] [id number] [place] [address], documented in this encounter Visit Diagnoses Diagnosis Preop examination- Primary Preoperative examination, unspecified documented in this encounter Additional Health Concerns Infection Onset Date Last Indicated Resolved Time COVID-19 Rule Out 11/23/2020 11/23/2020 11/24/2020 4:31 PM HOGSHEAD MAT ASSEMBLER COVID-19 Rule Out 07/09/2021 07/09/2021 07/10/2021 11:47 AM CDT COVID-19 Rule Out 05/27/2023 05/27/2023 05/28/2023 7:24 AM CDT COVID-19 Rule Out 11/24/2023 11/24/2023 11/24/2023 6:55 PM HOGSHEAD MAT ASSEMBLER COVID-19 Rule Out 01/17/2024 01/17/2024 01/17/2024 4:46 PM CDT COVID-19 Rule Out 02/16/2024 02/16/2024 02/16/2024 3:01 PM CDT COVID-19 Rule Out 11/09/2024 11/09/2024 11/09/2024 11:14 AM HOGSHEAD MAT ASSEMBLER documented as of this encounter Care Teams Senior Operations Analyst Relationship Specialty Start Date End Date Radha Callaway PA [facility] [address] [place] [address] PCP - General PHYSICIAN HARNESS AND BAG INSPECTOR 11/15/20 05/26/23 None, ProviderMD PCP - General UNKNOWN PHYSICIAN SPECIALTY 05/27/23 02/15/24 Harley Campos MD PCP - General FAMILY PRACTICE 02/16/24 documented as of this encounter
--- OUTSIDE RECORDS SUMMARY | 2025-05-26 00:19 | XMS_ITS | Continuity of Care Document ---
Author Organization [facility] Address [address] [place] [place] [address] Phone Care Team Providers Care Picker And Packer Name Role Phone Zeeshan Earl PA-C Unavailable [...] Copied on Encounter OFFICE/OUTPAT IENT VISIT, [facility], [address] [facility] [place], [place], [id number], [place] tel:[phone] [facility] cold symptoms (chief complaint) Suspected exposure to other viral communicable diseaseSinusitis [address] [place] [address], [address], [place]. tel:[phone] Referring Provider: Zeeshan Earl, [address] [place] [address], [address]. tel:[phone] OFFICE/OUTPAT IENT VISIT, [facility], [address] [place] [address], [id number], tel:[phone] [facility] Encounter for screening for other viral diseases 0 Mady Byers. [address] [place] [address], [address], [place]. tel:[phone] Referring Provider: Zeeshan Earl, [address] [place] [address], [address]. tel:[phone] OFFICE/OUTPAT IENT VISIT, [facility], [address] [place] [address], [id number], [place] tel:[phone] [facility] covid exposure (chief complaint) Encounter for screening for other viral disease 0 Mady Byers. [address] [place] [address], [address], [place]. tel:[phone] Referring Provider: Zeeshan Earl, [address] [place] [address], [address]. tel:[phone] Family History Family Member Type Diagnosis Age At Onset No Information Payers Payer name Insurance type Covered alliance party ID Alonso lakhani(sAyse Sorensen [facility] [id number] CI [id number] Social History Type Description Quantity Date Captured [...] day quarantine. Testing is optional, pt can formwork carpenter, can start quarantine period and test if [...] Mental Status Date Cognitive Assessment Orientation - Aroda ed to time, place, person, situation. Patient Care Teams Name Effective Dates (start - stop) Status Members No Information
--- OUTSIDE RECORDS SUMMARY | 2025-05-26 00:19 | XMS_ITS | Clinical Summary ---
Author Organization [facility] Address [address] [facility] Attn: Epic Prelude ADT DAPHNE OREILLY [address] Care Team Providers Care Matrix Worker Name Role Phone Unavailable Primary Care Provider Unavailabl e Allergies No known active allergies Medications clobetasoL (TEMOVATE) 0.05 % Cream APPLY TO RASH ON BODY TWO TIMES A DAY NEEDED 60 Gram 9 03/20/2022 7:54 PM CDT 1 Active benzonatate (TESSALON) 100 mg capsule Take 1 capsule (100 mg) by mouth every 8 (eight) hours 21 Capsule 09/03/2022 12:58 PM HOTEL ASSISTANT GENERAL MANAGER 2 Active modafiniL (PROVIGIL) 200 mg Tablet Take 2 tablets (400 mg total) by mouth every morning 60 Tablet 5 04/20/2023 10:40 AM CDT 3 Active estradioL (Estrace) 0.01% (0.1 mg/g) vaginal cream Insert 1 gram vaginally twice weekly 42.5 Gram 4 09/21/2023 12:43 PM HOTEL ASSISTANT GENERAL MANAGER 3 Active oxyBUTYnin (DITROPAN) 5 mg tablet Take 1 Tablet (5 mg) by mouth 2 times daily. 60 Tablet 11 09/21/2023 12:43 PM HOTEL ASSISTANT GENERAL MANAGER 3 Active ondansetron (ZOFRAN ODT) 4 mg [...] daily. 90 Tablet 1 11/11/2024 3:22 PM HOTEL ASSISTANT GENERAL MANAGER 4 05/16/20 25 Discontinu ed(Reorder ) Encounters [...] (1 - 1-dose 75+ series) 01/05/2039 Insurance * Guarantor: Chalino Garcia Account Type Relation to Patient Date of Phone Billing Address Personal/Family Self 1965 [address] [facility] [place] [address] [employer]
--- OUTSIDE RECORDS SUMMARY | 2025-05-26 00:19 | XMS_ITS | Patient Health Record ---
Author Organization [facility] Address [address] [place], [place] [id number] Care Team Providers Care Grain Farmer Name Role Phone MAHOGANY AGGARWAL Unavailable [phone] Sharmaine Campos Unavailable Unavailable Allergies No Known Allergies Reason For Referral Reason REFERRAL ( E STABLISHED VISITS ) 04/20/2025 [facility] REFERRALS ARE NO LONGER VALID OF APRIL 24, 2025 PER [facility]. K[facility] Diagnosis 1 Plantar fascial fibr omatosis (M72.2) Referred Organization [facility] Referred Provider MAHOGANY AGGARWAL Referred Address [address],[place], [id number], Referred Provider Specialty Podiatry Referral Priority Routine [...] Provider Diagnosis [facility] [address] [facility] [address] [place], [place] [id number] 06/08/2024 MAHOGANY SNOOK Plantar fascial fibromatosis M72.2 ; Calcaneal spur, left foot M77.32 and Left foot pain M79.672 [facility] [place] [address] [facility] [address] [place], [place] [id number] 08/02/2024 MAHOGANY SNOOK Plantar fascial fibromatosis M72.2 ; Calcaneal spur, left foot M77.32 and Left foot pain M79.672 [facility] [place] [address] [facility] [address] [place], [place] [id number] 08/23/2024 MAHOGANY SNOOK Plantar fascial fibromatosis M72.2 ; Calcaneal spur, left foot M77.32 and Left foot pain M79.672 [facility] [address] [place], [place] [id number] 08/29/2024 MAHOGANY SNOOK Assessments Encounter Date Diagnosis [...] Insured Coverage Start Date Coverage End Date [facility] [address] [place] [address] [id number] SHARMAINE [place] Spouse - patient is the spouse of the insured Medical (General) History Medical History History ICD Code acid reflux kidney stones hepatitis hemorrhoids eczema psoriasis hypersomnolence urinary incontinence
--- OUTSIDE RECORDS SUMMARY | 2025-05-26 00:21 | XMS_ITS | Continuity of Care Document ---
Author Name [facility] Organization [facility] Care Team Providers Care Franchise Field Consultant Name Role Phone [facility] Unavailable Unavailable Problems Combined list of problems [...] Condition 0055C-375t h [facility] Eczema Active Condition 7135G-Un-F-375 Th [facility] Essential hypertension Active Condition 0055C-375th [facility] Fatigue Active Condition 4117H-Aj-K-375 Th [facility] Female stress incontinence Active Condition 0055C-375th [facility] Fibrocystic disease of breast Active Condition 0055C-3 75th [facility] GERD - Gastro-esophageal reflux disease Active Condition 6130C-Af-C -375 Th [facility] HTN - Hypertension Active Condition 9467Z-Ca-H-3 75 Th [facility] Hypothyroidism Active Condition 0055C-3 [...] C-Af-C-375 Th MedHiral Urinary incontinence Active Condition 6469F-Li-S-3 75 Th Saravanan Well adult Active Condition [...] HEADACHE SYNDROMES Active Condition DoD visit for: [place] [employer] services physical intermediate Active Condition DoD Mammogram Screening Inactive Condition [...] STRESS INCONTINENCE Active Condition 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 flight physical Active Condition DoD Patient Education [...] 90 cap(s), 2 total refill(s ), Maintena nye, Pharmacy : [facility] Oral (given by mouth) Ordered 5 2024 90.0 6130C-A f-C-375 [facility] aspirin 81 mg oral capsule cap(s), Oral, every 24 hr, 0 total refill(s ), Maintena nce Oral (given by mouth) Discont inued 04/11/20242023 6130C-A f-C-375 Th [facility] [place] aspirin 81 mg oral capsule 1 cap(s), Oral, every 24 hr, # 90 cap(s), 2 total refill(s ), Maintena nye, Pharmacy : [facility] Oral (given by mouth) Discont inued 04/10/2025 4 2024 90.0 6130C-A f-C-375 Th [facility] ASPIRIN EC (U/D) 81 MG ORAL TBEC Take with food/mil Pancho martins whole. 04/11/2025 [id number] 2023 90 [facility] ([facility] aspirin EC 81 mg tablet See Instruct [...] total refill(s ), Maintena nce, Pharmacy : [facility] Oral (given by mouth) Discont inued 07/13/2024 4 2023 90.0 6130C-A f-C-375 Th [facility] [place] calcium carbonate 1,500 mg (elemental Ca 600 mg) oral tab 600 mg, Oral, Daily, # 90 tab(s), 3 total refill(s ), Maintena [facility], Pharmacy : [facility] Oral (given by mouth) Ordered 2023 90.0 6130C-A f-C-375 Th [facility] cholecalcif alexandria 125 mcg (5,000 units) capsule See Instruct ions, # 90 EA, 3 total refill(s ), Acute Complet ed 03/17/2024 4 2023 90.0 Ambulat ory Pharmac y cholecalcif alexandria 50 mcg (2000 intl units) oral capsule 1 cap(s), Oral, Daily, # 90 cap(s), 3 total refill(s ), [facility] Oral (given by mouth) Ordered 2024 90.0 6130C-A f-C-375 Th [facility] cholecalcif alexandria 50 mcg (2000 intl units) oral capsule 1 cap(s), Oral, Daily, # 90 cap(s), 3 total refill(s ), [facility] Oral (given by mouth) Discont inued 07/13/20242023 90.0 6130C-A f-C-375 Th [facility] [place] cholecalcif alexandria 50 mcg (2000 intl units) oral capsule 1 cap(s), Oral, Daily, # 90 cap(s), 3 total refill(s ), [facility] Oral (given by mouth) Discont inued 04/10/20252024 90.0 6130C-A f-C-375 Th [facility] [place] cholecalcif alexandria 50 mcg (2000 intl units) oral capsule 1 cap(s), Oral, Daily, # 90 cap(s), 3 total refill(s ), Maintena nye, Pharmacy : [facility] Oral (given by mouth) Discont inued 07/13/20242023 90.0 6130C-A f-C-375 Th [facility] cholecalcif alexandria 50 mcg (2000 intl units) oral capsule 1 cap(s), Oral, Daily, # 90 cap(s), 0 total refill(s ), Maintena nce Oral (given by mouth) Discont inued 04/18/20242023 90.0 6130C-A f-C-375 Th [facility] CLOBETASOL 0.05% CREAM/CEREV E CREAM 1:1- For external use. 01/22/2025 [id number] 4 [address] [place] [address] Dan[place] DESAI ([facility]) clobetasol 0.05% topical cream 1 appl(s), Topical, [...] directed .Obtain advice for OTCs.Jack lindsay. 04/11/2025 [id number] 4 [address] [place] [address] Danilo DESAI ([facility]) Fish Oil oral capsule 1 cap(s), Oral, [...] total refill(s ), Maintena nce, Pharmacy : [facility] Nostri l-Both (into the nose) [...] 16 mL, 3 total refill(s ), Maintena nye, Pharmacy : [facility] Nostri l-Both (into the nose) Discont inued 04/10/20252024 16.0 6130C-A f-C-375 Th [facility] Keflex 500 mg oral capsule 1 cap(s), Oral, every 12 hr, X 7 days, # 14 cap(s), 0 total refill(s ), Acute, 05/02/24 12:28:00 PM CDT, Pharmacy : [facility] , Urinary, uncompli cated UTI Oral (given by mouth) Complet ed 05/02/2024 4 2023 14.0 6130C-A f-C-375 Th [facility] [facility] levoFLOXaci n 750 mg oral tablet 1 tab(s), Oral, every 24 hr, X 5 days, # 5 tab(s), 0 total refill(s ), Acute, 04/15/25 9:05:00 AM CDT, Pharmacy : [facility] , Urinary, complica janee UTI/pyel onephrit is Oral (given by mouth) Complet ed 04/15/2025 5 2024 5.0 6130C-A f-C-375 Th [facility] Macrobid 100 mg oral capsule 1 cap(s), Oral, BID, X 5 days, # 10 cap(s), 0 total refill(s ), Acute, 05/27/24 1:31:00 PM CDT, Pharmacy : [facility] , Urinary, uncompli cated UTI Oral (given by mouth) Complet ed 05/27/2024 4 2023 10.0 0055C-3 75th [facility] miconazole 2% vaginal cream with applicator 1 appl(s), Vaginal, every day at bedtime, # 45 g, 0 total refill(s ), Acute, Pharmacy : [facility] Vagina l (in the vagina ) Discont inued 11/29/20242024 45.0 0055C-3 75th [facility] modafinil 200 mg oral tablet 2 tab(s), Oral, every morning, # 180 tab(s), 0 total refill(s ), Maintena nye, Pharmacy : [facility] Oral (given by mouth) Ordered 3 2022 180.0 6130C-A -C-375 Th [facility] modafinil 200 mg tablet 200 mg, TAKE ONE TABLET BY MOUTH EVERY DAY, Oral, Daily, # 90 EA, 1 total refill(s ), Acute Oral (given by mouth) Complet ed 09/15/2023 3 2022 90.0 Ambulat ory Pharmac y multivitami n adult, oral tablet Oral, Daily, 0 total refill(s ), Maintena nce Oral (given by mouth) Ordered 2023 0055C-3 75th [facility] omeprazole 20 mg oral delayed release capsule 1 cap(s), Oral, BID(AC), 30 to 60 minutes before meal, # 180 cap(s), 3 total refill(s ), Maintena nye, Pharmacy : [facility] Oral (given by mouth) Ordered 5 2024 180.0 6130C-A -C-375 Th [facility] omeprazole 20 mg oral delayed release capsule 1 cap(s), Oral, BID(AC), 30 to 60 minutes before meal, # 180 cap(s), 3 total refill(s ), Maintena nce, Pharmacy : [facility] Oral (given by mouth) Discont [...] total refill(s ), Maintena nce, Pharmacy : [facility] Oral (given by mouth) Discont inued 04/10/2025 4 2024 180.0 6130C-A f-C-375 [facility] 20 mg capsule See Instruct ions, # 90 EA, 3 total refill(s ), Acute Complet ed 03/17/2024 4 2023 90.0 Ambulat ory Pharmac y PROPRANOLOL 80 MG ORAL TAB Be careful if taking OTCs.Gurwinder e or use exactly as directed .May cause drowsine ss/dizzi ness. 04/11/2025 [id number] 2023 180 [facility] DESAI ([facility]) propranolol 80 mg oral tablet 1 tab(s), Oral, BID, # 180 tab(s), 2 total refill(s ), Maintena nce, Pharmacy : [facility] Oral (given by mouth) Ordered 5 2024 180.0 6130C-A f-C-375 Th [facility] propranolol 80 mg oral tablet tab(s), Oral, BID, 0 total refill(s ), Maintena nce Oral (given by mouth) Discont inued 04/11/20242023 6130C-A f-C-375 Th [facility] propranolol 80 mg oral tablet 1 tab(s), Oral, BID, # 180 tab(s), 2 total refill(s ), Leonor lopez, Pharmacy : [facility] Oral (given by mouth) Discont [...] Known Allergies Drug allergy (disorder) active 8 [facility] Immunizations Combined list of available immunizations from the 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 Immunization Series Date Given Administered By Site Reaction Lot Number CVX Code Drug [employer] Supervisor Status Comments Source pneumococcal 20-valent conjugate vaccine 2024 DAVID ELLIOTT Shoul simon, left (delt oid) [id number] [employer] complet ed pneumococ kenny 20-valent conjugate vaccine 04/10/25 Given 6130C-A f-C-375 [facility] zoster vaccine, inactivated 2020 zzLef t Arm [id number] GlaxoSmithKli ne complet ed zoster vaccine, inactivat ed 05/30/21 Given Ambulat ory Pharmac y zoster vaccine recombinant 1 2020 Unknown, Provider [id number] [facility] zoster vaccine recombina nt DoD typhoid Vi capsular polysaccharid e vac 2020 zzLef t Arm [id number] sanofi pasteur complet ed typhoid Vi capsular polysacch aride vac 03/29/21 Given Ambulat ory Pharmac y [place]inean Encephalitis IM 2020 samiazJacky ht Arm [id number] 134 Valneva complet ed [place] Encephali tis IM 03/29/21 Given Ambulat ory Pharmac y zoster vaccine, inactivated 2020 zzLef t Arm [id number] 187 GeliyoooSmProlong PharmaceuticalsKli ne complet ed zoster vaccine, inactivat ed 03/29/21 Given Ambulat ory Pharmac y anthrax vaccine 2020 zzLef t Arm [id number] Emergent Biosolutions complet ed anthrax vaccine 03/29/21 Given Ambulat ory Pharmac y anthrax vaccine 4 2020 Unknown, Provider [id number] [employer] [place] (MIP) complet ed anthrax vaccine DoD typhoid Vi capsular polysaccharid e vaccine 1 2020 Unknown, Provider [id number] Sanofi Pasteur (PMC) complet ed typhoid Vi capsular polysacch aride vaccine DoD [place] Encephalitis vaccine for intramuscular administratio n 1 2020 Unknown, Provider [id number] 134 Valneva ([place]) complet ed [place] Encephali tis vaccine for intramusc ular administr ation DoD zoster vaccine recombinant 1 2020 Unknown, Provider [id number] SEJENT (SKB) complet ed zoster vaccine recombina nt DoD COVID Vaccine Moderna 2020 zzLef t Arm [id number] complet ed COVID Vaccine Moderna 02/07/21 Given Ambulat ory Pharmac y SARS-COV-2 (COVID-19) vaccine, mRNA, spike protein, LNP, preservative free, 100 mcg or 50 mcg dose 2 2020 Unknown, Provider [id number] 207 Moderna [email or web address]. (MOD) complet ed SARS-COV- 2 (COVID-19 ) vaccine, mRNA, spike protein, LNP, preservat diandra free, 100 mcg or 50 mcg dose DoD COVID Vaccine Moderna 2020 zzLef t Arm [id number] complet ed COVID Vaccine Moderna 01/10/21 Given Ambulat ory Pharmac y SARS-COV-2 (COVID-19) vaccine, mRNA, spike protein, LNP, preservative free, 100 mcg or 50 mcg dose 1 2020 Unknown, Provider [id number] 207 Moderna [email or web address] (MOD) complet ed SARS-COV- 2 (COVID-19 ) vaccine, mRNA, spike protein, LNP, preservat diandra free, 100 mcg or 50 mcg dose DoD tetanus-dipht h toxoids (Td) adult/adol [facility] [id number] 09 sanofi pasteur complet ed tetanus-d iphth toxoids (Td) adult/ado l 10/04/19 Given Ambulat ory Pharmac y influenza, injectable, quadrivalent- pf 2018 [facility] Arm [id number] 150 Seqirus complet ed influenza , injectabl e, quadrival ent-pf 10/04/19 Given Ambulat ory Pharmac y tetanus and diphtheria toxoids, adsorbed, preservative free, for adult use (2 Lf of tetanus toxoid and 2 Lf of diphtheria toxoid) 3 2018 Unknown, Provider [id number] 09 Sanofi Pasteur (PMC) complet ed tetanus and diphtheri a toxoids, adsorbed, preservat diandra free, for adult use (2 Lf of tetanus toxoid and 2 Lf of diphtheri a toxoid) DoD Influenza, injectable, quadrivalent, preservative free 16 2018 Unknown, Provider [id number] 150 Seqirus (SEQ) complet ed Influenza , injectabl e, quadrival ent, preservat diandra free DoD influenza, injectable, quadrivalent- pf [facility] [id number] 150 GlaxoSmithKli ne complet ed influenza , injectabl e, quadrival ent-pf 08/24/18 Given Ambulat ory Pharmac y Influenza, injectable, quadrivalent, preservative free 1 2017 Unknown, Provider [id number] 150 SmithKline (SKB) complet ed Influenza , injectabl e, quadrival ent, preservat diandra free DoD pneumococcal polysaccharid e, 23 valent 2011 DAVID ELLIOTT [id number] complet ed Result Comment: Manufactu rer: Merck Co 6130C-A f-C-375 [facility] influenza virus vaccine, live 2011 [id number] [employer] anh t ed influenza virus vaccine, live 07/30/12 Given Ambulat ory Pharmac y influenza virus vaccine, live, attenuated, for intranasal use 15 2011 Unknown, Provider [id number] 111 MedImmune, Inc. (MED) complet ed influenza virus vaccine, live, attenuate d, for intranasa l use DoD influenza virus vaccine, live 2010 [id number] 111 Medimmune Inc comple t ed influenza virus vaccine, live 09/04/11 Given Ambulat ory Pharmac y influenza virus vaccine, live, attenuated, for intranasal use 14 2010 Unknown, Provider [id number] 111 [facility] Health[facility] Inc[facility] (MED) complet ed influenza virus vaccine, live, attenuate d, for intranasa l use DoD Novel influenza-H1N 1-09, injectable 2009 zzLef t Arm [id number] 127 Novartis Pharmaceutica complet ed Novel influenza -W4Q6-73, injectabl e 11/02/09 Given Ambulat ory Pharmac y Novel influenza-H1N 1-09, injectable 1 2009 Unknown, Provider [id number] 127 Novartis Pharmaceutica l Madeleine. (NOV) complet ed Novel influenza -S5T6-55, injectabl e DoD influenza virus vaccine, live 2008 [id number] 111 [facility] ed influenza virus vaccine, live 08/14/09 Given Ambulat ory Pharmac y influenza virus vaccine, live, attenuated, for intranasal use 1 2008 Unknown, Provider [id number] 111 MedIune, Inc. (MED) complet ed influenza virus vaccine, live, attenuate d, for intranasa l use DoD influenza virus vaccine, live 2007 [id number] 111 Medimmune Inc comple t ed influenza virus vaccine, live 08/04/08 Given Ambulat ory Pharmac y influenza virus vaccine, live, attenuated, for intranasal use 1 2007 [id number] 111 MedImmune, Inc. (MED) complet ed influenza [...] DoD tetanus, diphtheria, acellular pertu is 2006 [id number] 115 sanofi pasteur complet ed tetanus, diphtheri a, acellular pertussis 02/16/07 Given Ambulat ory Pharmac y tetanus toxoid, reduced diphtheria toxoid, and acellular pertu is vaccine, adsorbed 1 2006 [id number] 115 Sanofi Pasteur ([facility]) complet ed tetanus toxoid, reduced diphtheri a toxoid, and acellular pertussis vaccine, adsorbed DoD influenza virus vaccine,split 2005 [id number] 15 sanofi pasteur complet ed influenza virus vaccine,s plit 09/08/06 Given Ambulat ory Pharmac y influenza virus vaccine, split virus (incl. purified surface antigen)-reti red CODE 1 2005 [id number] 15 Sanofi Pasteur ([facility]) complet ed influenza virus vaccine, split virus (incl. purified surface antigen)- retired CODE DoD influenza virus vaccine,split 2004 [id number] 15 sanofi pasteur complet ed influenza virus vaccine,s plit 09/08/05 Given Ambulat ory Pharmac y influenza virus vaccine, split virus (incl. purified surface antigen)-reti red CODE 1 2004 [id number] 15 Sanofi Pasteur ([facility]) complet ed influenza virus vaccine, split virus (incl. purified surface antigen)- retired CODE DoD influenza virus vaccine, whole virus 2004 [id number] 16 sanofi pasteur complet ed influenza virus vaccine, whole virus 12/11/04 Given Ambulat ory Pharmac y influenza virus vaccine, whole virus 0 2004 [id number] 16 Sanofi Pasteur ([facility]) complet ed influenza virus vaccine, whole virus DoD tuberculin purified protein derivative [facility] [id number] 96 Unknown complet ed Patient Tolerance : Negative Ambulat ory Pharmac y tuberculin skin test; purified protein derivative solution, intradermal 1 2003 Unknown, Provider [id number] Other (OT) complet ed tuberculi n skin test; purified protein derivativ e solution, intraderm al DoD anthrax vaccine 2003 [id number] Emergent Biosolutions complet ed anthrax vaccine 08/09/04 Given Ambulat ory Pharmac y anthrax vaccine 4 2003 [id number] 24 [employer] [place] ([facility]) complet ed anthrax vaccine DoD anthrax vaccine 2003 [id number] [employer] complet ed anthrax vaccine 12/25/03 Given Ambulat ory Pharmac y anthrax vaccine 3 2003 [id number] [employer] [place] ([facility]) complet ed anthrax vaccine DoD anthrax vaccine 2003 [id number] 24 [employer] complet ed anthrax vaccine 12/05/03 Given Ambulat ory Pharmac y anthrax vaccine 2 2003 [id number] 24 Emergent Bio[employer] [facility] ([facility]) complet ed anthrax vaccine DoD vaccinia (smallpox) vaccine 0 2003 75 () Not Given vaccinia (smallpox ) vaccine DoD meningococcal polysaccharid e (MPSV4) 2003 [id number] 32 [employer] complet ed meningoco ccal polysacch aride (MPSV4) 11/21/03 Given Ambulat ory Pharmac y anthrax vaccine 2003 [id number] 24 [employer] complet ed anthrax vaccine 11/21/03 Given Ambulat ory Pharmac y typhoid Vi capsular polysaccharid e vac 2003 [id number] sanofi pasteur complet ed typhoid Vi capsular polysacch aride vac 11/21/03 Given Ambulat ory Pharmac y anthrax vaccine 1 2003 [id number] 24 [employer] [facility] ([facility]) complet ed anthrax vaccine DoD meningococcal polysaccharid e vaccine (MPSV4) 0 2003 [id number] 32 [place] (CON) complet ed meningoco ccal polysacch aride vaccine (MPSV4) DoD typhoid Vi capsular polysaccharid e vaccine 0 2003 [id number] 101 Sanofi Pasteur (PMC) complet ed typhoid Vi capsular polysacch aride vaccine DoD influenza virus vaccine, whole virus 2002 [id number] 16 Bvents complet ed influenza virus vaccine, whole virus 08/30/03 Given Ambulat ory Pharmac y influenza virus vaccine, whole virus 0 2002 [id number] 16 [facility] ([place]) complet ed influenza virus vaccine, whole virus DoD influenza virus vaccine, whole virus 2001 [id number] 16 Bvents complet ed influenza virus vaccine, whole virus 09/06/02 Given Ambulat ory Pharmac y influenza virus vaccine, whole virus 0 2001 [id number] 16 [facility] ([facility]) complet ed influenza virus vaccine, whole virus DoD influenza virus vaccine, whole virus 2000 [id number] 16 sanofi pasteur complet ed influenza virus vaccine, whole virus 09/14/01 Given Ambulat ory Pharmac y influenza virus vaccine, whole virus 0 2000 [id number] 16 Sanofi [facility] ([facility]) complet ed influenza virus vaccine, whole virus DoD tuberculin purified protein derivative 2000 zzLef t Arm [id number] 96 [facility] pasteur complet ed Patient Tolerance : Negative Ambulat ory Pharmac y tuberculin skin test; purified protein derivative solution, intradermal 1 2000 Unknown, Provider [id number] 96 [facility] ([facility]) complet ed tuberculi n skin test; purified protein derivativ e solution, intraderm al DoD influenza virus vaccine, whole virus 1999 [id number] 16 Bvents complet ed influenza virus vaccine, whole virus 10/05/00 Given Ambulat ory Pharmac y influenza virus vaccine, whole virus 0 1999 [id number] 16 [facility] complet ed influenza virus vaccine, whole virus DoD influenza virus vaccine, whole virus 1998 [id number] 16 [facility] complet ed influenza virus vaccine, whole virus 08/29/99 Given Ambulat ory Pharmac y influenza virus vaccine, whole virus 0 1998 [id number] 16 [facility] ([facility]) complet ed influenza virus vaccine, whole virus DoD tuberculin purified protein derivative 1998 zzL t Arm 96 complet ed Patient Tolerance : Negative Ambulat ory Pharmac y tuberculin skin test; purified protein derivative solution, intradermal 1 1998 Unknown, Provider 96 () complet ed tuberculi n skin test; purified protein derivativ e solution, intraderm al DoD influenza virus vaccine, whole virus [id number] 16 Bvents complet ed influenza virus vaccine, whole virus 08/23/98 Given Ambulat ory Pharmac y influenza virus vaccine, whole virus 0 [id number] 16 [facility] ([place]) complet ed influenza virus vaccine, whole virus DoD typhoid vaccine, live, oral 1997 [id number] 25 [employer] [place] complet ed typhoid vaccine, live, oral 01/03/98 Given Ambulat ory Pharmac y typhoid vaccine, live, oral 0 1997 [id number] 25 [employer] ([place]) complet ed [...] adult dosage DoD typhoid, parenteral, AKD 1996 [id number] 53 [place] [employer] [place] complet ed typhoid, parentera l, AKD 01/26/97 Given Ambulat ory Pharmac y hepatitis A adult vaccine 1996 52 complet ed hepatitis A adult vaccine 01/26/97 Given Ambulat ory Pharmac y yellow fever vaccine 1996 [id number] 37 [employer] [place] complet ed yellow fever vaccine 01/26/97 Given [...] toxoid) DoD yellow fever vaccine 0 1996 [id number] 37 [employer] ([place]) complet ed yellow fever vaccine DoD hepatitis A vaccine, adult dosage 1 1996 52 () complet ed hepatitis A vaccine, adult dosage DoD typhoid vaccine, parenteral, acetone-kille d, dried (U.S. ) 1 1996 [id number] 53 [employer] (SI) complet ed [...] th MED[facility]-Sc mykel Urinalys is UA Spec [place] 1.020 1.001 - 1.035 04/10 N 0055A-375 [...] U/L 5 - 55 04/10 N MEDGRP-Sc mykle Chemistr y Potassium Lvl 4.6 mmol/L 3.5 [...] MEDGRP-Sc mykel AP Specimen s AP Cyto BEEF GRINDER Patient: Patricia Garcia Specimen #: [id number] Patholog ist: Accessio n: [facility] DEPARTME NT OF PATHOLOG Y [address] [facility] [address] [place] [address] Cytology Gynecolo gic Report Patient: Patricia Garcia Specimen #: [id number] DOD ID:: [id number] Encounte r #: [id number] Taken: 4 12:38 /Age: 2 4 [...] Due to cytologi c findings at the [employer] microsco pe or selectio n of the case for QC, comprehe nsive manual re-scree jean by a cytotech nologist was required . Elect ronicall y Signed by Narinder Aleman Clinical Diagnosi s and History repeat in 5 yr sif cotest neg Prior History Signed Out Specimen # Interpre tation 10/12/20 19 [id number] Negative for Intraepi thlial Lesion or Malignan cy 01/01/20 13 [id number] UNSATISF ACTORY TRAFFIC OR SYSTEM DISPATCHER 02/08/20 10 [id number] NEGATIVE 03/14/20 08 [id number] NEGATIVE 12/22/19 07 [id number] ENDOCERV ICAL COMPONEN T SEEN CPT Codes: A; 02146 The Pap test is a screenin g [...] the U. S. Food and Drug Administrat ThinkHR. This modified vaginal specimen HPV test is [...] or methodology contact Molecular Department at or [phone]. Unknown Organizat ion AP Specimen s HPV [...] and its performance characteris tics determined by [facility]. Vaginal source has not been cleared or approved by the U. S. Food and Drug Administrat ThinkHR. This modified vaginal specimen HPV test is [...] process or methodology contact Molecular Department at [phone] or [phone]. Unknown Organat [facility] AP Specimen s HPV Genotype 18 [...] and its performance characteris tics determined by [facility]. Vaginal source has not been cleared or approved by the U. S. Food and Drug Administrat ThinkHR. This modified vaginal specimen HPV test is [...] process or methodology contact Molecular Department at [phone] or [phone]. Unknown Organizat ion Urinalys is UA Bacteria [...] 005375 MED[facility]-Sc mykel Urinalys is UA Spec [place] 1.020 1.001 - 1.035 05/20 N -375 [...] -375 [employer] mykel Urinalys is UA Spec [place] 1.020 1.001 - 1.035 04/11 N -375 [...] neutralizat ion assay. Testing performed by electrochem iluminQ-Layercen ce immunoassay . Any laboratory test result should be interpreted in conjunction with the patient's clinical presentatio n and the results of other diagnostic tests. A negative result on a given laboratory assay does not by itself rule out the possibility of infection. Notifiable result/cond ition for [facility] department, notify your local [facility] immediately for proper notificatio [...] March 01, 2013). Notifiable result/cond ition for Local/[facility] department, notify your local [facility] immediately for proper notificatio n. Testing performed by electrochem iluminQ-Layercen ce. 5600AEase My [employer] FSAM EPILAB Immunolo gy/Serol ogy Hep B [...] . Testing performed by electrochem iluminescen ce. [employer] EPILAB Immunolo gy/Serol ogy Hep B Core [...] performed by electrochem iluminescen ce immunoassay . [employer] EPILAB Chemistr y Ferritin Lvl 172.00 ng/mL 13.00 - 150.00 02/04 H Interpretiv e Data: METHODOLOGY : Testing performed by electrochem iluminescen t immunoassay (ECLIA). [employer] EPILAB Chemistr y Ur Creat 96 mg/dL [...] recommended . -375 [facility] mykel Hematolo gy [place] Absolute 0.3 x10^3/mc L 0.2 - 0.8103 02/04 N 375 [employer] mykel Hematolo gy Lymph Absolute 1.7 x10^3/mc L 1.2 - 4.0103 02/04 N 0055A375 [employer] mykel Hematolo gy Neutro Absolute 4.9 [...] : Testing performed by colorimetri c assay. 5600AAveillant FSAM EPILAB Immunolo gy/Serol ogy Hep B [...] decrease 15-29 Severe decrease <15 Kidney failure [facility]-Mn myekl Vital Signs Combined list of inpatient and outpatient Vital Signs from Department of Defense and Veterans Affairs, ranging from 12 months to all on record, depending upon the facility. Vital Sign Value Date Comments Source Systolic Blood Pressure 123 mm[Hg] 04/10/2025 12:59:00 3071Y-Qn-T-375Th Sar[facility] Diastolic Blood Pressure 71 mm[Hg] 04/10/2025 12:59:00 0675A-Ia-A-375Th [facility] Blood Pressure Manual Automatic 04/10/2025 12:59:00 4399L-Gl-Q-375Th [facility] BP Site Right arm 04/10/2025 12:59:00 6130C -Af-C-375Th [facility] Temperature Oral 36.9 Marina 04/10/2025 12:59:00 6419O-Fm-F-375Th [facility] Respiratory Rate 16 br/min 04/10/2025 12:59:00 9098U-Hn-A-375Th [facility] Peripheral Pulse Rate 78 bpm 04/10/2025 12:59:00 9842E-Da-U-375Th [facility] Mean Arterial Pressure, Calc 88 mm[Hg] 04/10/2025 12:59:00 4296Y-Vk-E-3 75Th [facility] Mean Arterial Pressure, Calc 102 mm[Hg] 04/01/2024 19:13:00 2501F-Cs-W-3 75Th [facility] Peripheral Pulse Rate 74 bpm 04/01/2024 19:13:00 8882X-Yk-Z-375Th [facility] Respiratory Rate 14 br/min 04/01/2024 19:13:00 6102F-Yx-O-375Th [facility] Systolic Blood Pressure 131 mm[Hg] 04/01/2024 19:13:00 0879B-Kz-V-375Th [facility] Diastolic Blood Pressure 88 mm[Hg] 04/01/2024 19:13:00 1742B-Nd-Z-375Th [facility] BP Site Left arm 04/01/2024 19:13:00 6130C -Af-C-375Th [facility] Blood Pressure Manual Automatic 04/01/2024 19:13:00 7721B-Df-C-375Th [facility] Systolic Blood Pressure 136 mm[Hg] 05/20/2024 16:05:00 0055C-375th [facility] Diastolic Blood Pressure 89 mm[Hg] 05/20/2024 16:05:00 0055C-375th [facility] Respiratory Rate 16 br/min 05/20/2024 16:05:00 0055C-375th [facility] Peripheral Pulse Rate 78 bpm 05/20/2024 16:05:00 0055C-375th [facility] Mean Arterial Pressure, Calc 105 mm[Hg] 05/20/2024 16:05:00 0055C-375th [facility] Blood Pressure Manual Automatic 01/21/2024 20:07:00 1017M-Zo-Q-375Th [facility] Peripheral Pulse Rate 73 bpm 01/21/2024 20:07:00 7051S-Sf-M-375Th [facility] Systolic Blood Pressure 125 mm[Hg] 01/21/2024 20:07:00 4794P-Mj-F-375Th [facility] Diastolic Blood Pressure 75 mm[Hg] 01/21/2024 20:07:00 8887V-Nl-K-375Th [facility] Mean Arterial Pressure, Calc 92 mm[Hg] 01/21/2024 20:07:00 6063H-Qm-U-3 75Th [facility] Encounters Combined list of: 1) Encounters from Department of Veterans Affairs facilities going backup to the last 18 months, not all [place] inpatient encounters are included; 2) Encounters from the Department of [facility] facilities going backup to 280 months. Location Location Details Encounter Type Encounter Number Reason For Visit Attending Provider ADM Date DC Date Status Disposition Source [facility] Cl Red) TELE CONSULT [id number] MISSED TUES APPT NEEDS REFERRA L FOR KORINA SAUCEDO 11/20 [facility]) [facility]) OUTPATIENT [id number] back pain x 3days RINA DURBIN 03/09 Released w/o Limitations [facility]) [facility]) OUTPATIENT [id number] muscle spasm RINA DURBIN 03/10 Released w/o Limitations [facility] Family [facility]) [facility] Optometry ) OUTPATIENT [id number] annual check for glasses PRATEEK QUISPE 06/11 Released w/o Limitations [facility] Optomet ry) [facility] Family [facility] Cl [facility]) OUTPATIENT [id number] lump on leg SHELBY THOMAS A 06/24 Released w/o Limitations [facility]) [facility]) OUTPATIENT [id number] eval on the previou s surgery GLENN CARRASCO T 12/08 Released w/o Limitations [facility]) [facility]) OUTPATIENT [id number] well woman GLENN CARRASCO T 12/15 Released w/o Limitations [facility]) [facility]) OUTPATIENT [id number] cough,c old GLENN CARRASCO T 03/29 Released w/o Limitations [facility]) [facility]) OUTPATIENT [id number] severe back pain GLENN CARRASCO T 05/21 Released w/o Limitations [facility]) [facility]) OUTPATIENT [id number] SCAR REVISIO N FROM C-SECTI ON YO ZULLY II 05/27 Released w/o Limitations [facility] ) [facility] DIRECT TO [facility] FROM OTHER THAN ER OR U [id number] YOZULLY II 11/22 RETURNED TO DUTY [facility]) INPATIENT [id number] lipodys LEXX Beaulieu 11/23 Inpatient- Still a Patient [facility] Nutriti on [facility]) [facility]) OUTPATIENT [id number] post op YO ZULLY II 11/30 Released w/o Limitations [facility] ) [facility]) TELE CONSULT [id number] MARC BURTON 12/11 [facility]) [facility]) OUTPATIENT [id number] infecte SPENSER [place] 12/15 Released w/o Limitations [facility]) [facility]) OUTPATIENT [id number] ONE-MON TH F/U ZULLY RAM II 01/17 Released w/o Limitations [facility] ) [facility] Cl [facility]) OUTPATIENT [id number] PHA DEVI APARICIO 03/08 Released w/o Limitations [facility]) [facility]) OUTPATIENT [id number] well woman exam GLENN CARRASCO 03/09 Released w/o Limitations [facility]) [facility]) OUTPATIENT [id number] f/u abdoman al surgery , 5 month YOZULLY II 04/11 Released w/o Limitations [facility] ) [facility] Optometry ) OUTPATIENT [id number] ROUT EXAM/GL PATRICIA L[address] 04/24 Released w/o Limitations [facility] Optomet ry) [facility]) OUTPATIENT [id number] colpo Stress inconti nence, cervica l neoplas m uncerta in behavio r need 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 GRINDER DORA HAMILTON 04/26 Released w/o Limitations [facility]) [facility] Urology) OUTPATIENT [id number] FEMALE STRESS INCONTI NENCE JAMES ALAN 05/10 Released w/o Limitations [facility] ) [facility]) OUTPATIENT [id number] JAMES ALAN 05/10 Released w/o Limitations [facility] ) [facility]) OUTPATIENT [id number] JAMES ALAN 05/25 Released w/o Limitations [facility] ) [facility]) OUTPATIENT [id number] pre-op transob turator sling JAMES ALAN 05/29 Released w/o Limitations [facility] ) [facility] DIRECT TO [facility] FROM OTHER THAN ER OR U [id number] JAMES ALAN 05/30 RETURNED TO DUTY [facility]) INPATIENT [id number] cystogr am JAMES ALAN 05/31 Inpatient- Discharged to Home/Self-ca re [facility] ) [facility]) OUTPATIENT [id number] post op follow up JAMES ALAN 06/12 Released w/o Limitations [facility] ) [address] [place] [address] Dan[place] [facility] Practice Non-GME FHI1) OUTPATIENT [id number] Medical Right Start KARLA BACK 07/10 Released w/o Limitations [address] [place] [address] [place] Judith [place])(F amily Practic e Non-GME FHI1) [address] [place] [address] [place] B [place])(Sco tt [facility] FAMRES Tm Blue) OUTPATIENT [id number] Rec Rev and AHLTA 2766 SELVIN BRASHER 08/22 Released w/o Limitations [address] [place] [address] [place] B [place])(S cott [facility] FAMRES Tm Blue) [address] [place] [address] [place] B [place])(Fam kristen Practice Non-GME FHI1) OUTPATIENT [id number] Tobacco Cessati on Intake MARK SMITH 09/18 Released w/o Limitations [address] [place] [address] [place] B [place])(F amily Practic e Non-GME FHI1) [address] [place] [address] [place] B [place])(Sco tt [facility] FAMRES Tm Blue) OUTPATIENT [id number] [phone] discuss previou s plastic surgery SCOTT CHO 10/02 Released w/o Limitations [employer] [employer] ([facility])(S cott [facility] FAMRES Tm Blue) [facility] [place] SPARKSB ([facility])(Sco tt [facility] FAMRES Tm Blue) OUTPATIENT [id number] tobacco follow- up SELVIN BRASHER 12/08 Released w/o Limitations [facility] [place] CLAREB ([facility])(S cott [facility] FAM[facility] Tm Blue) [address] [place] [address] [place] SP[place]KS[place] ([facility] OUTPATIENT [id number] [facility]/MOB EX MARIO ESTRELLA 01/09 Released w/o Limitations [facility] [place] SP[facility]KSB ([facility])([facility]) [address] [place] [address] [place] ([facility])(Sco tt [facility] FAMRES Tm Blue) OUTPATIENT [id number] f/u abdomin al surgery SELVIN BRASHER 02/14 Released w/o Limitations [facility] [place] ([facility])(S cott [facility] FAMRES Tm Blue) [address] [place] [address] [place])(Opt ometry) OUTPATIENT [id number] eye exam - MARC VICTOR 02/26 Released w/o Limitations [facility] [place] DESAI ([facility])(O ptometr y) [address] [place] [address] [place] SP[place]KS[place])(Artie e Managemen t) TELE CONSULT [id number] LEO WINSTON 03/[address] [place] [address] [place] DESAI ([facility])(C ase Managem ent) [address] [place] [address] [place]KS[place] ([facility]) DENTAL [id number] Exam Only JAMES PEREZ 03/20 Released w/o Limitations [facility] [place] SP[place]KS[place] ([facility])(D ental Clinic) [address] [place] [address] [place] SP[place]KS[place] ([facility]) DENTAL [id number] Pros eval #4 JAMES PEREZ 03/22 Released w/o Limitations [address] [place] [address] [place] SPARKS[place] ([facility])(D ental Clinic) [address] [place] [address] [place]KS[place] ([facility])(Artie e Managemen t) TELE CONSULT [id number] LEO WINSTON 03/[address] [place] [address] [employer] ([facility])(C ase Managem ent) [employer] ([facility] OUTPATIENT [id number] [facility] -PHA(8) MARK SMITH 04/03 Released w/o Limitations [facility] [employer] [employer] ([facility])(D [facility]) [facility] [employer] ([facility]) DENTAL [id number] Pros Prep #4 JAMES PEREZ R 04/09 Released w/o Limitations [employer] ([facility])(D ental Clinic) [employer] ([facility]) DENTAL [id number] Perio SHALONDA Melhcor 04/25 Released w/o Limitations [facility] [employer] ([facility])(D ental Clinic) [facility] [employer] ([facility]) DENTAL [id number] perio maint-s crp MAXWELL ROTH 05/14 Released w/o Limitations [facility] [place] B ([facility])(D ental Clinic) [facility] [place] B ([facility])([facility]) DENTAL [id number] #4 PFM insert JAMES PEREZ 05/21 Released w/o Limitations [facility] [employer] ([facility])(D ental Clinic) [facility] [employer] ([facility])([facility]) DENTAL [id number] perio maint scrp MAXWELL ROTH 05/22 Released w/o Limitations [facility] [employer] ([facility])(D ental Clinic) [facility] [employer] [place])(Opt ometry) OUTPATIENT [id number] CRS Part 2 MARC VICTOR 05/22 Released w/o Limitations [facility] [employer] ([facility])(O ptometr y) [facility](Prk Surgery) OUTPATIENT [id number] Pre-op RINA ALEXANDER 06/22 Released w/o Limitations [facility](P rk Surgery ) [facility](Prk Surgery) OUTPATIENT [id number] ot info brief BANG CAHTMAN 06/26 Released w/o Limitations [employer](P rk Surgery ) [employer](Prk Surgery) OUTPATIENT [id number] consent brief BANG CHATMAN 06/26 Released w/o Limitations [employer](P rk Surgery ) [employer](Prk Surgery) OUTPATIENT [id number] final pre-op w/ surgeon BANG CHATMAN 06/26 Released w/o Limitations [employer](P rk Surgery ) [employer](Prk Surgery) OUTPATIENT [id number] Surgery BANG CHATMAN 06/27 Sick at Home/Quarter s [employer](P rk Surgery ) [employer](Prk Surgery) OUTPATIENT [id number] Post-op 1 day BANG CHATMAN 06/28 Sick at Home/Quarter s [employer](P rk Surgery ) [employer](Prk Surgery) OUTPATIENT [id number] Post-op 6 day RINA LAEXANDER 07/03 Released w/o Limitations [employer](P rk Surgery ) [employer] [place] ([facility])(Opt ometry) OUTPATIENT [id number] 1 mo prk f/u ALY ARIZA 07/27 Released w/o Limitations [employer] [place] ([facility])(O ptometr y) [facility] [place] ([facility])(Opt ometry) OUTPATIENT [id number] 2 month s/p PRK IOP check MARC VICTOR 09/04 Released w/o Limitations [employer] [place] ([facility])(O ptometr y) [facility] [place] ([facility])(Opt ometry) OUTPATIENT [id number] 3 mo prk f/u MARC VICTOR 10/09 Released w/o Limitations [employer] [place] ([facility])(O ptometr y) [facility] [place] ([facility])(Sco tt [facility] FAM[facility] Tm Blue) OUTPATIENT [id number] painful left ankle hard to walk - [phone] FANNY FLORES 10/31 Released w/o Limitations [employer] [place] ([facility])(S cott [facility] FAMRES Tm Blue) [employer] [facility] ([facility])(Sco tt [facility] FAMRES Tm Blue) OUTPATIENT [id number] severe headach es with menstru al cycle [phone] w [phone] c JIM ZAVALA 11/05 Released w/o Limitations [address] [place] [address] [employer] ([facility])(S [facility] Tm Blue) [facility] [employer] ([facility])(Sco tt [facility] Tm Blue) OUTPATIENT [id number] irregul ar menstra l cycle [phone] RENE MONSALVE H. 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 ecology) OUTPATIENT [id number] METRORR GENTRY ROSA 01/18 Released w/o Limitations [facility] [employer] ([facility])(G ynecolo gy) [facility] Medical [facility] [employer] ([facility])([facility]) OUTPATIENT [id number] TCP initial - classro YOLI Duarte 01/24 Released w/o Limitations [address] [place] [address] [place] SPARKSB ([facility])(I [facility]) [address] [place] [address] [employer] [place])(Ob/ Induction Machine Setter) TELE CONSULT [id number] Discuss u/s results . GENTRY MARIE 01/[address] [place] [address] [employer] ([facility])(O b/Induction Machine Setter) [address] [place] [address] [employer] ([facility])(Sco tt [facility] Tm Blue) OUTPATIENT [id number] fu headach es [phone] FANNY FLORES 01/30 Released w/o Limitations [address] [place] [address] Group [employer] ([facility])(S [facility] Tm Blue) [facility] Medical [facility] [employer] ([facility])(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 Machine Setter ecology) OUTPATIENT [id number] ANNUAL SHEREEN NOVA 02/04 Released w/o Limitations [address] [place] [address] [employer] ([facility])(G ynecolo gy) [facility] Medical [facility] [employer] ([facility])(Acu puncture) OUTPATIENT [id number] JORDAN LANGE 02/06 Released w/o Limitations [address] [place] [address] [place] ([facility])(A cupunct ure) [address] [place] [address] [place] ([facility])([facility]) OUTPATIENT [id number] TCP followu p JUANYOLI FAY Krzysztof 02/14 Released w/o Limitations [address] [place] [address] [place] ([facility])(I Pharm D Clinic) [address] [place] [address] [place] ([facility])(Sco tt [facility] FAMRES Tm Blue) OUTPATIENT [id number] Sleep disorde r [phone] STACY PAZ 02/28 Released w/o Limitations [address] [place] [address] [place] ([facility])(S cott [facility] FAM[facility] Tm Blue) [address] [place] [address] [place])(Opt ometry) OUTPATIENT [id number] 12 mo prk f/u MARC VICTOR 07/12 Released w/o Limitations [address] [place] [address] [place] ([facility])(O ptometr y) [address] [place] [address] [place])(Induction Machine Setter ecology) TELE CONSULT [id number] e-mail about GENTRY Antonio 08/[address] [place] [address] [place] ([facility])(G ynecolo gy) [address] [place] [address] [place] ([facility])(Sco tt [facility] FAMRES Tm Blue) TELE CONSULT [id number] needs routine appt for multipl e issues - [phone] CAD [facility] ANGUS EUGENE 03/[address] [place] [address] [place] ([facility]S cott [facility] Tm Blue) [address] [place] [address] [place] ([facility])(Sco tt [facility] FAM[facility] Tm Blue) OUTPATIENT [id number] pt. request ELVIN JOHNSON 04/11 Released w/o Limitations [address] [place] [address] [place] ([facility])(S cott [facility] FAM[facility] Tm Blue) [address] [place] [address] [place])(Sco tt [facility] FAM[facility] Tm Blue) TELE CONSULT [id number] Pt needs bhaskar Noel - [phone] - tsg CELESTINE MENDOZA 05/[address] [place] [address] [place] ([facility])(S cott [facility] FAM[facility] Tm Blue) [address] [place] [address] [employer] ([facility])([facility]) OUTPATIENT [id number] Smoking Cessati on TJ ROSA S 09/08 Released w/o Limitations [employer] ([facility])([facility] Pharm D Clinic) [address] [place] [address] Group [employer] ([facility])(Mno tt [facility] Fam Res Tm Green) OUTPATIENT [id number] Pain in breast [phone] ALEXA HERNANDEZ 09/16 Released w/o Limitations [address] [place] [address] [employer] ([facility])(S cott [facility] Fam Res Tm Green) [facility] [employer] ([facility])([facility]) OUTPATIENT [id number] Smoking Cessati on TJ ROSA S 09/22 Released w/o Limitations [address] [place] [address] Group [employer] ([facility])([facility]) [address] [place] [address] [employer] ([facility])([facility]) OUTPATIENT [id number] Smoking Cessati on TJ ROSA S 10/02 Released w/o Limitations [facility] [employer] ([facility])([facility] Pharm [facility]) [facility] [employer] ([facility])([facility]) OUTPATIENT [id number] SAMPSON NOE 10/16 Released w/o Limitations [address] [place] [address] [employer] ([facility])([facility] Pharm [facility]) [facility] [employer] ([facility])([facility]) OUTPATIENT [id number] Smoking Cessati on TJ ROSA S 11/13 Released w/o Limitations [address] [place] [address] [employer] ([facility])([facility] Pharm [facility]) [facility] [employer] ([facility])(Mno tt [facility] Fam Res Tm Green) OUTPATIENT [id number] thyroid issues [phone] ALY FIGUEROA 11/24 Released w/o Limitations [address] [place] [address] [employer] ([facility])(S cott [facility] Fam Res Tm Green) [address] [place] [address] [employer] ([facility])(Sco tt [facility] Fam Res Tm Green) TELE CONSULT [id number] Notes Entered by: QUIANA NOVA 16 Dec 2011 0945 ------- ------- ------- ------- -- Test results Ad cad tlt ALY FIGUEROA 12/[address] [place] [address] [employer] [place])(S [facility] Res Green) [address] [place] [address] [employer] [place])([facility]) OUTPATIENT [id number] f/u for thyroid and cholest [place] [phone] ALY FIGUEROA 12/25 Released w/o Limitations [address] [place] [address] Danilo [facility])(S [facility]) [address] [place] [address] [employer] B [place])([employer] ecology) OUTPATIENT [id number] MENORRH AGIA JOSE HENNING 01/12 Released w/o Limitations [address] [place] [address] [employer] [place])(G ynecolo gy) [address] [place] [address] [employer] [place])([employer] ecology) OUTPATIENT [id number] EMB [id number] JOSE HENNING 01/14 Released w/o Limitations [address] [place] [address] [employer] [place])(G ynecolo gy) [address] [place] [address] [employer] [place])([facility]) TELE CONSULT [id number] Notes Entered by: QUIANA NOVA 15 Jan 2012 0927 ------- ------- ------- ------- -- Bhaskar sumner; APPT THOMAS Avila cad tlt ELVIN JOHNSON 01/[address] [place] [address] [employer] [place])([facility]) [address] [place] [address] Danilo [facility])(Ob/ Induction Machine Setter) TELE CONSULT [id number] Notes Entered by: SHADY HENNING 13 Feb 2012 1457 ------- ------- ------- ------- -- EMB results JOSE HENNING 02/[address] [place] [address] Danilo CLAREB [place])(O b/Induction Machine Setter) [address] [place] [address] [employer]ilo [employer] [place])([employer] ecology) OUTPATIENT [id number] pre op/ [phone] JOSE HENNING 03/23 Released w/o Limitations [address] [place] [address] Danilo [facility])(G ynecolo gy) [address] [place] [address] Danilo [facility])(Induction Machine Setter ecology) TELE CONSULT [id number] Notes Entered by: HEAVEN TOBIN 12 Apr 2012 1446 ------- ------- ------- ------- -- Surgery HEAVEN Leung 04/[address] [place] [address] Danilo [facility])(G ynecolo gy) [address] [place] [address] Danilo [facility])(Induction Machine Setter ecology) TELE CONSULT [id number] Notes Entered by: JOSHUA GARCIA W 03 May 2012 1511 ------- ------- ------- ------- -- F/u appt needed HEAVEN TOBIN 05/[address] [place] [address] Danilo [facility])(G yemacodarcy gy) [address] [place] [address] Danilo [facility])([employer]) OUTPATIENT [id number] f/u post jeffrey kaye KIMBERLY D 05/20 Released w/o Limitations [address] [place] [address] Danilo [facility])(G ynecodarcy gy) [address] [place] [address] Danilo [facility])([facility] Internal [facility] ) OUTPATIENT [id number] chronic headach es [id number] SHARMAINE MAYES 06/22 Released w/o Limitations [address] [place] [address] Danilo [facility])(S cott Interna l Medicin e Tm) [address] [place] [address] Danilo [facility])([facility] Internal Medicine Tm) OUTPATIENT [id number] follow up migrain es [id number] SHARMAINE MAYES 07/30 Released w/o Limitations [address] [place] [address])(S cott Interna l Medicin e Tm) [address] [place] [address])([employer]) TELE CONSULT [id number] Notes Entered by: JOSHUA GARCIA W 24 Aug 2012 1619 ------- ------- ------- ------- -- MARIO Lerma 08/[address] [place] [address])(G ynecodarcy gy) [address] [place] [address])([facility] ) TELE CONSULT [id number] Notes Entered by: LUIS ANGEL MAHAN 30 Aug 2012 0810 ------- ------- ------- ------- -- Refill of medicat ion- WILLI Ireland 08/[address] [place] [address])(S cott Interna l Medicin e Tm) [address] [place] [address])([facility] ) TELE CONSULT [id number] Notes Entered by: GUERRERO HERNANDEZ 06 Oct 2012 1441 ------- ------- ------- ------- -- Network results - Pulmona ry Sleep Medicin e 2 SHARMAINE MAYES 10/[address] [place] [address])(S cott Interna l Medicin e Tm) [address] [place] [address])(Ob/ Induction Machine Setter) TELE CONSULT [id number] Notes Entered by: KVNG BYERS 28 Oct 2012 1301 ------- ------- ------- ------- -- Network Results - UROGYN 2 MUSA MURGUIA 10/[address] [place] [address])(O b/Induction Machine Setter) [address] [place] [address])([facility] ) OUTPATIENT [id number] kidney stones [id number] SHARMAINE MAYES 11/01 Released w/o Limitations [address] [place] [address])(S cott Interna l Medicin e Tm) [address] [place] [address])([facility] ) TELE CONSULT [id number] Notes Entered by: DEVI CORRAL 06 Dec 2012 1008 ------- ------- ------- ------- -- Bhaskar Mayes - [phone] WILLI MARTINEZ 12/[address] [place] [address])(S cott Interna l Medicin e Tm) [address] [place] [address])([employer]duction Machine Setter ecology) OUTPATIENT [id number] Vaginal Dischar ge MUSA MURGUIA 12/24 Released w/o Limitations [address] [place] [address] ([facility])(G ynecolo gy) [address] [place] [address])(Induction Machine Setter ecology) TELE CONSULT [id number] Notes Entered by: HEAVEN TOBIN 11 Jan 2013 1430 ------- ------- ------- ------- -- results MUSA MURGUIA 01/[address] [place] [address])(G ynecolo gy) [address] [place] [address])([employer] Set[employer] ecology) OUTPATIENT [id number] f/u vaginal dischar ge - [phone] MUSA MURGUIA 01/12 Released w/o Limitations [address] [place] [address])(G ynecolo gy) [address] [place] [address])([facility] Internal Medicine Tm) TELE CONSULT [id number] Notes Entered by: KVNG BYERS 14 Jan 2013 1145 ------- ------- ------- ------- -- Network Results - UROLOGY 01/11/13 SHARMAINE MAYES 01/[address] [place] [address])(S cott Interna l Medicin e Tm) [address] [place] [address])([facility]m) TELE CONSULT [id number] Notes Entered by: Sylvain JONES 18 Jan 2013 1056 ------- ------- ------- ------- -- Bhaskar Mayes [phone] WILLI MARTINEZ 01/[address] [place], [place] [address]B [place])(S cott Interna l Medicin e Tm) [address] [place] [address])([facility] ) TELE CONSULT [id number] Notes Entered by: Ashkan MARTINEZ 19 Jan 2013 1601 ------- ------- ------- ------- -- Status of LtrWILLI DE LA PAZ 01/[address] [place] [address])(S cott Interna l Medicin e Tm) [address] [place] [address])([facility] ) TELE CONSULT [id number] Notes Entered by: KVNG BYERS 16 Feb 2013 1419 ------- ------- ------- ------- -- Network Results - UROLOGY 02/03/13 SHARMAINE MAYES 02/[address] [place] [address])(S cott Interna l Medicin e Tm) [address] [place] [address])([facility] ) TELE CONSULT [id number] Notes Entered by: KVNG BYERS 17 Feb 2013 1644 ------- ------- ------- ------- -- Network Results - UROLOGY 02/17/13 SHARMAINE MAYES 02/[address] [place] [address])(S cott Interna l Medicin e Tm) [address] [place] [address])([facility] ) OUTPATIENT [id number] CAT SCAN AT [facility] SHOWS MASS IN RIGHT BREAST [id number] SHARMAINE MAYES 02/25 Released w/o Limitations [address] [place] [address])(S cott Interna l Medicin e Tm) [address] [place] [address])([facility] ) TELE CONSULT [id number] Notes Entered by: DEVI CORRAL 08 Jul 2013 1033 ------- ------- ------- ------- -- Karolyn burak Mayes - PIERRE THORNTON I 07/[address] [place] [address])(S cott Interna l Medicin e Tm) [address] [place] [address] Danilo [facility])(Opt ometry) OUTPATIENT [id number] ROUTINE IKE MAHOGANY A 10/14 Released w/o Limitations [address] [place] [address] Danilo DESAI [place])(O ptometr y) [address] [place] [address] Danilo [facility])([facility]m) TELE CONSULT [id number] Notes Entered by: QUIANA NOVA 24 Jan 2014 0802 ------- ------- ------- ------- -- Med refill Bebo [phone] WILLI MARTINEZ 01/[address] [place] [address] Group [employer] [facility])(S cott Interna l Medicin e Tm) [address] [place] [address] Danilo [facility])([facility] Internal Medicine Tm) TELE CONSULT [id number] Notes Entered by: RADHA MAYES 02 Feb 2014 1648 ------- ------- ------- ------- -- Study results SHARMAINE MAYES 02/[address] [place] [address] Group [employer] Judith [place])(S cott Interna l Medicin e Tm) [address] [place] [address] Danilo [facility] ) OUTPATIENT [id number] F/u headach SHARMAINE MAYES 02/06 Released w/o Limitations [address] [place] [address] Danilo CLAREJudith [place])(S cott Interna l Medicin e Tm) [address] [place] [address] Danilo DESAI [place])([facility] Fam Res Tm Red) OUTPATIENT [id number] 2nd floor ASFB/Pr eop clinic Minor procedu res AMRIT RESENDEZ 03/07 Released w/o Limitations [address] [place] [address] Group [employer] [place])(S [facility] Fam Res Tm Red) [address] [place] [address] [employer] [place])([facility] FAMRES Tm Blue) OUTPATIENT [id number] 2nd floor SAFB/Sc TRAVON Haney 03/22 Released w/o Limitations [address] [place] [address] [employer] [place])(S [facility] FAMRES Tm Blue) [address] [place] [address])([facility] Tm Blue) TELE CONSULT [id number] Notes Entered by: KENZIE RIVERA 23 Mar 2014 1335 ------- ------- ------- ------- -- Call back C-scope on [id number] - KENZIE Collazo 03/[address] [place] [address])([facility] Blue) [address] [place] [address])([facility] ) TELE CONSULT [id number] Notes Entered by: QUIANA NOVA 31 Mar 2014 0735 ------- ------- ------- ------- -- Med refill Mayes WILLI MARTINEZ 03/[address] [place] [address])(S cott Interna l Medicin e Tm) [address] [place] [address])([facility] ) TELE CONSULT [id number] Notes Entered by: LUIS SWEENEY 28 Jun 2014 0708 ------- ------- ------- ------- -- SX - multipl e symptom s/Ortiz / or * JAMEL EARLY 06/[address] [place] [address])(S cott Interna l Medicin e Tm) [address] [place] [address])([facility] ) TELE CONSULT [id number] Notes Entered by: MARILYNN SOARES 24 Jul 2014 1236 ------- ------- ------- ------- -- Sx/head and chest congest ion/kayla quintana/[phone]* JAMEL EARLY 07/[address] [place] [address])(S cott Interna l Medicin e Tm) [address] [place] [address])([facility] ) TELE CONSULT [id number] Notes Entered by: PIETRO COOK 27 Sep 2014 1359 ------- ------- ------- ------- -- Sleep Study Disorde r Referra l renewal request ed by Pt REVA COOK 09/27 Referred for Appointment [address] [place] [address])(S cott Interna l Medicin e Tm) [address] [place] [address])([facility] ) TELE CONSULT [id number] Notes Entered by: MASTER BURTON 12 Jan 2015 0916 ------- ------- ------- ------- -- Network results - Urgent Care 014 JOSE ANAYA V 01/[address] [place] [address])(S cott Interna l Medicin e Tm) [address] [place] [address])([facility] ) TELE CONSULT [id number] Notes Entered by: SALVADOR CARTER 25 Apr 2015 0913 ------- ------- ------- ------- -- Med Chelita /Cari /[phone] 40 WILLI MARTINEZ 04/[address] [place] [address])(S cott Interna l Medicin e Tm) [address] [place] [address])([facility] ) OUTPATIENT [id number] f/u HLP/lab s/meds BRIAN MARTINEZ 05/14 Released w/o Limitations [address] [place] [address])(S cott Interna l Medicin e Tm) [address] [place] [address])([facility] ) TELE CONSULT [id number] Notes Entered by: KYA SQUIRES 12 Jun 2015 0910 ------- ------- ------- ------- -- Sx - headmike e, diarrhe a, nose burning - Ortiz - [phone]* JAMEL EARLY 06/[address] [place] [address] Group [facility])(S cott Interna l Medicin e Tm) [address] [place] [address])([facility] ) OUTPATIENT [id number] hedy Bentley a X 2 days BRIAN MARTINEZ Derrick 06/12 Released w/o Limitations [address] [place] [address])(S cott Interna l Medicin e Tm) [address] [place] [address])([facility] ) TELE CONSULT [id number] Notes Entered by: Diandra RG 18 Jan 2016 0822 ------- ------- ------- ------- -- Micare msg/ med refill x 3 meds [phone] SCOTT HSAH 01/17 Medication Refill Forwarded [address] [place] [address])(S cott Interna l Medicin e Tm) [address] [place] [address])([facility]) TELE CONSULT [id number] Notes Entered by: Diandra RG 17 Mar 2016 0932 ------- ------- ------- ------- -- Micare msg/ x 2 referra l and civ fitness letter SCOTT SHAH 03/17 Referred for Appointment [address] [place] [address])(S cott Interna l Medicin e Tm) [address] [place] [address])([facility] ) OUTPATIENT [id number] Physica l for fitness MIHAELA Urban 03/18 Released w/o Limitations [address] [place] [address])(S cott Interna l Medicin e Tm) [address] [place] [address])([facility]) TELE CONSULT [id number] Notes Entered by: ANDREW QUISPE 02 Jun 2016 1403 ------- ------- ------- ------- -- LYNSEY OQUENDO [phone] JAMEL EARLY 06/[address] [place] [address])(S cott Interna l Medicin e Tm) [address] [place] [address])(War rior Op Med Cln Tm A Ad) OUTPATIENT [id number] Sinus Cold KUNAL VAIL 10/22 Released w/o Limitations [address] [place] [address])(W arrior Op Med Cln Tm A Ad) [address] [place] [address])(Fam kristen Med Tm B Non-AD BCC) TELE CONSULT [id number] Notes Entered by: HOLLAND VARELA 18 Nov 2016 1552 ------- ------- ------- ------- -- Medicat ion Refill/ ALTON Linares 11/18 Referred for Appointment [address] [place] [address])(F amily Med Tm B Non-AD BCC) [address] [place] [address])(War rior Op Med Cln Tm A Ad) OUTPATIENT [id number] medicat ion f/u KUNAL VAIL 12/11 Released w/o Limitations [address] [place] [address])(W arrior Op Med Cln Tm A Ad) [address] [place] [address])(War rior Op Med Cln Tm A Ad) TELE CONSULT [id number] Notes Entered by: ARETHA AGUILERA 12 Dec 2016 0937 ------- ------- ------- ------- -- colonos copy HAYLEY, PAULO Edward 12/[address] [place] [address])(W arrior Op Med Cln Tm A Ad) [address] [place] [address])(War rior Op Med Cln Tm A Ad) TELE CONSULT [id number] Notes Entered by: ARETHA AGUILERA 12 Dec 2016 1600 ------- ------- ------- ------- -- Colonos copy due 2023 PAULO HARDY 12/[address] [place] [address] Danilo [facility])(W arrior Op Med Cln Tm A Ad) [address] [place] [address] Danilo [facility])([facility] kristen Med Tm B Non-AD BCC) OUTPATIENT [id number] x/b - Muscle Pain, Fatigue , [phone] DARNELL MAISHA D 03/25 Released w/o Limitations [address] [place] [address] Danilo [facility])(F amily Med Tm B Non-AD BCC) [address] [place] [address] Danilo [facility])([facility] kristen Med Tm B Non-AD BCC) TELE CONSULT [id number] Notes Entered by: HOLLAND VARELA 02 Apr 2017 1501 ------- ------- ------- ------- -- Referra burak Request /Obsluis waterman PAULO HARDY 04/[address] [place] [address] Danilo [facility])(F amily Med Tm B Non-AD BCC) [address] [place] [address])([facility] kristen Med Tm B Non-AD BCC) TELE CONSULT [id number] Notes Entered by: EVGENY MARTINEZ 21 Sep 2017 0847 ------- ------- ------- ------- -- Sx persist -kidney stone-m ultiple issues/ Obszacolby /[phone]/ plc HAYLEYPAULO Starks 09/[address] [place] [address] Danilo [facility])(F amily Med Tm B Non-AD BCC) [address] [place] [address])(War rior Op Med Cln Tm A Ad) TELE CONSULT [id number] Notes Entered by: DEVI CORRAL 23 Sep 2017 1055 ------- ------- ------- ------- -- Hospita l F/U - referra stefany - Obstroy ki - - tsg PAULO HARDY 09/[address] [place] [address] Danilo [facility])(W arrior Op Med Cln Tm A Ad) [address] [place] [address] Danilo [facility])(War rior Op Med Cln Tm A Ad) TELE CONSULT [id number] Notes Entered by: Cheyanne PENN 24 Sep 201740 ------- ------- ------- ------- -- PAULO Fiore 09/[address] [place] [address] Danilo [facility])(W arrior Op Med Cln Tm A Ad) [address] [place] [address] Danilo [facility])(Car e Coordinat ion Clinic) TELE CONSULT [id number] Notes Entered by: CHUY BURGOS 24 Sep 2017 1117 ------- ------- ------- ------- -- Hospita l admissnicolette on notific ation CHUY BURGOS 09/[address] [place] [address] Danilo [facility])(C are Coordin ation [facility]) [address] [place] [address] Danilo [facility])(Car e Coordinat ion Clinic) TELE CONSULT [id number] Notes Entered by: CHUY BURGOS 25 Sep 2017 0925 ------- ------- ------- ------- -- [facility]ospita l [facility] CHUY BURGOS 09/[address] [place] [address] Danilo [facility])(C are Coordin ation [facility]) [address] [place] [address] Danilo [facility])(Fam kristen Med Tm B Non-AD BCC) TELE CONSULT [id number] Notes Entered by: MARISOL MONTEMAYOR 25 Sep 201740 ------- ------- ------- ------- -- Network Results Emergen cy Room 7 KUNAL VAIL 09/[address] [place] [address] Danilo [facility])(F amily Med Tm B Non-AD BCC) [address] [place] [address] Danilo [facility])(Fam kristen Med Tm B Non-AD BCC) TELE CONSULT [id number] Notes Entered by: SILAS RODRIGUEZ 05 Oct 2017 1029 ------- ------- ------- ------- -- Network Results Emergen cy Room 7 MEAGHANM KUNAL VAIL 10/[address] [place] [address])(F amily Med Tm B Non-AD BCC) [address] [place] [address])(Fam kristen Med Tm B Non-AD BCC) TELE CONSULT [id number] Notes Entered by: SILAS RODRIGUEZ 06 Oct 2017 0906 ------- ------- ------- ------- -- Network Results Emergen cy Room 7 KUNAL HOWARD 10/[address] [place] [address])(F amily Med Tm B Non-AD BCC) [address] [place] [address])(War rior Op Med Cln Tm A Ad) TELE CONSULT [id number] Notes Entered by: TARAN ANGULO 27 Oct 2017 0853 ------- ------- ------- ------- -- Network Results Radiolo gy 7 RAHATS KUNAL VAIL 10/[address] [place] [address])(W arrior Op Med Cln Tm A Ad) [address] [place] [address])(War rior Op Med Cln Tm A Ad) TELE CONSULT [id number] Notes Entered by: SANDOR HAMILTON 02 Nov 2017 0747 ------- ------- ------- ------- -- Network Results -UROLOG Y 7 BRITTANYG KUNAL VAIL 11/[address] [place] [address])(W arrior Op Med Cln Tm A Ad) [address] [place] [address])(War rior Op Med Cln Tm A Ad) TELE CONSULT [id number] Notes Entered by: MADHU SHELBY 03 Nov 2017 0851 ------- ------- ------- ------- -- Network Results Radiolo gy 7 TDC (abd 1 view) KUNAL VAIL 11/[address] [place] [address])(W arrior Op Med Cln Tm A Ad) [address] [place] [address])(War rior Op Med Cln Tm A Ad) TELE CONSULT [id number] Notes Entered by: MADHU SHELBY 19 Nov 2017 1340 ------- ------- ------- ------- -- Network Results Radiolo gy 8 TDC (retrog rade pyelogr am) KUNAL VAIL 11/[address] [place] [address])(W arrior Op Med Cln Tm A Ad) [address] [place] [address])(War rior Op Med Cln Tm A Ad) TELE CONSULT [id number] Notes Entered by: DEVI CORRAL 18 Dec 2017 0947 ------- ------- ------- ------- -- Extend or renew bhaskar milton - [phone] - tsg HAYLEYPAULO Starks 12/[address] [place] [address])(W arrior Op Med Cln Tm A Ad) [address] [place] [address])(War rior Op Med Cln Tm A Ad) TELE CONSULT [id number] Notes Entered by: LIONEL HAWKINS 11 Feb 2018 0731 ------- ------- ------- ------- -- Micare/ med refill HAYLEY, PAULO J 02/[address] [place] [address])(W arrior Op Med Cln Tm A Ad) [address] [place] [address])(War rior Op Med Cln Tm A Ad) OUTPATIENT [id number] denny Onofre s, [phone] KUNAL VAIL 02/23 Released w/o Limitations [employer] [facility])(W arrior Op Med Cln Tm A Ad) [employer] [facility])(War rior Op Med Cln Tm A Ad) OUTPATIENT [id number] Notes Entered by: TJ MELGOZA 30 Mar 2018 1353 ------- ------- ------- ------- -- WALK-IN KUNAL ELDRIDGE 03/30 Released w/o Limitations [employer] [facility])(W arrior Op Med Cln Tm A Ad) [facility])(War rior Op Med Cln Tm A Ad) TELE CONSULT [id number] Notes Entered by: NIC PHILLIP 16 Jun 2018 0931 ------- ------- ------- ------- -- Bhaskar Merlos - Anne-Marie Jun / Roberto milton / - sgSANDI Choe 06/16 Referred for Appointment [employer] [facility])(W arrior Op Med Cln Tm A Ad) [facility] [employer] [facility])(War rior Op Med Cln Tm A Ad) TELE CONSULT [id number] 5 Notes Entered by: HAZEL STODDARD 17 Feb 2019 1119 ------- ------- ------- ------- -- MARGARITO [facility] Team 1: Office Message SANDI ALDRIDGE 02/17 Referred for Appointment [facility] [place])(W arrior Op Med Cln Tm A Ad) [facility])(War rior Op Med Cln Tm A Ad) OUTPATIENT [id number] discuss surgica l procedu re for sinuses [id number] FEBRUARYDERRICK 06/07 Released w/o Limitations [employer] [facility])(W arrior Op Med Cln Tm A Ad) [employer] [facility])(War rior Op Med Cln Tm A Ad) TELE CONSULT [id number] 4 Notes Entered by: DEBRA ANDREWS 24 Aug 2019 1214 ------- ------- ------- ------- -- Referra sumner Issue and Request /Karin no/[phone]. [phone] 0/darius CAMPBELLON CHARLEY M 08/24 Other Not Elsewhere Classified [address] [place] [address])(W arrior Op Med Cln Tm A Ad) [address] [place] [address])(War rior Op Med Cln Tm A Ad) OUTPATIENT [id number] Notes Entered by: Sylvain GROSS 25 Aug 2019 1429 ------- ------- ------- ------- -- walk in UTI ALY SCRUGGS 08/25 Released w/o Limitations [address] [place] [address])(W arrior Op Med Cln Tm A Ad) [address] [place] [address])(Induction Machine Setter ecology) OUTPATIENT [id number] [facility] RAS DAVALOS 09/28 Released w/o Limitations [address] [place] [address])(Diandra blount gy) [address] [place] [address])(Induction Machine Setter ecology) TELE CONSULT [id number] 8 Notes Entered by: DEVANG DAVALOS 04 Oct 2019 1842 ------- ------- ------- ------- -- results JT HANNAH 10/05 Released to [employer] [address] [place] [address])(G jose alejandro gy) [address] [place] [address])(Induction Machine Setter ecology) TELE CONSULT [id number] 4 Notes Entered by: DEVANG DAVALOS 17 Oct 2019 1043 ------- ------- ------- ------- -- JT Armstrong 10/17 Referred for Appointment [address] [place] [address])(G jose alejandro gy) [address] [place] [address])(War rior Op Med Cln Tm A Ad) OUTPATIENT [id number] Advised to schedul e appt from results of a bone scan [id number] BERTHA VERA 11/11 Released w/o Limitations [address] [place] [address])(W arrior Op Med Cln Tm A Ad) [address] [place] [address])(War rior Op Med Cln Tm A Ad) TELE CONSULT [id number] [address]: [facility] DAMON 01 May 2020 1326 ------- ------- ------- ------- -- Network results Dermato logy 020 CHEYENNE BURKS 05/[address] [place] [address])(W arrior Op Med Cln Tm A Ad) [address] [place] [address])(War rior Op Med Cln Tm A Ad) TELE CONSULT [id number] 6 Notes Entered by: HAZEL STODDARD 16 May 2020 1431 ------- ------- ------- ------- -- MARGARITO Secure HAZEL Ackerman 05/16 Released to [employer] [address] [place] [address])(W arrior Op Med Cln Tm A Ad) [address] [place] [address])(War rior Op Med Cln Tm A Ad) TELE CONSULT [id number] 3 Notes Entered by: MAMADOU GRIMM 11 Jun 2020 0900 ------- ------- ------- ------- -- Secure Message - SAMPSON Lim 06/11 Other Not Elsewhere Classified [address] [place] [address])(W arrior Op Med Cln Tm A Ad) [address] [place] [address])(Fam kristen Med Tm B Non-AD BCC) TELE CONSULT [id number] 3 Notes Entered by: Kristi RIVERS 25 Jun 2020 1437 ------- ------- ------- ------- -- Network results Gastroe nterolo gy 020 ALD KALPANA STONERKristi Grove 06/[address] [place] [address])(F amily Med Tm B Non-AD BCC) [address] [place] [address])(Fam kristen Med Tm B Non-AD BCC) TELE CONSULT [id number] 0 Notes Entered by: Kristi RIVERS 23 Jul 2020 1316 ------- ------- ------- ------- -- Network results Pulmona ry/Sonal p Medicin e 020 ALD SHARMAINE SARMIENTO 07/[address] [place] [address])(F amily Med Tm B Non-AD BCC) [address] [place] [address])(War rior Op Med Cln Tm A Ad) TELE CONSULT [id number] 0 Notes Entered by: HAZEL STODDARD 30 Jul 2020 1340 ------- ------- ------- ------- -- [facility]ITO [facility]: [facility] Renewal BRITTNEY BLEVINS 07/30 Other Not Elsewhere Classified [address] [place] [address])(W arrior Op Med Cln Tm A Ad) [address] [place] [address])(War rior Op Med Cln Tm A Ad) TELE CONSULT [id number] 5 Notes Entered by: HAZEL STODDARD 02 Aug 2020 1543 ------- ------- ------- ------- -- MARGARITO Secure [facility] Team 1: Office Message BRITTNEY BLEVINS 08/02 Released to [employer] [address] [place] [address])(W arrior Op Med Cln Tm A Ad) [address] [place] [address])(War rior Op Med Cln Tm A Ad) TELE CONSULT [id number] 6 Notes Entered by: CHRISTIAN PEÑA 08 Aug 2020 1357 ------- ------- ------- ------- -- Lab Results SHARMAINE SARMIENTO 08/[address] [place] [address])(W arrior Op Med Cln Tm A Ad) [address] [place] [address])(Fam kristen Med Tm B Non-AD BCC) TELE CONSULT [id number] 7 Notes Entered by: KINGSTON TUBBS 23 Aug 2020 0802 ------- ------- ------- ------- -- Resched tiffanie Appt Request / Nas milton/ - OUMAR Us 08/23 Other Not Elsewhere Classified [address] [place] [address])(F amily Med Tm B Non-AD BCC) [address] [place] [address])(Fam kristen Med Tm B Non-AD BCC) OUTPATIENT [id number] 6 Med renewal s Virtual SHARMAINE SARMIENTO 08/31 Released w/o Limitations [address] [place] [address])(F amily Med Tm B Non-AD BCC) [address] [place] [address])(Fam kristen Med Tm B Non-AD BCC) TELE CONSULT [id number] 6 Notes Entered by: Ashkan LAZAR 26 Sep 2020 1006 ------- ------- ------- ------- -- Network results David pineda gy 020 SHARMAINE SALAS 09/[address] [place] [address])(F amily Med Tm B Non-AD BCC) [address] [place] [address])(War rior Op Med Cln Tm A Ad) TELE CONSULT [id number] 7 Notes Entered by: HAZEL STODDARD 08 Oct 2020 0920 ------- ------- ------- ------- -- [facility]: HAZEL Villasenor 10/08 Released to Self [employer] [address] [place] [address] [facility])(W arrior Op Med Cln Tm A Ad) [address] [place] [address])(Fam kristen Med Tm B Non-AD BCC) TELE CONSULT [id number] 0 Notes Entered by: Sylvain NOE 02 Nov 2020 1256 ------- ------- ------- ------- -- Network results Surgery 1 TSB KAY ZHENG 11/[address] [place] [address] Group [facility])(F amily Med Tm B Non-AD BCC) [address] [place] [address])(War rior Op Med Cln Tm A Ad) TELE CONSULT [id number] 8 Notes Entered by: Kristi RIVERS 27 Nov 2020 0839 ------- ------- ------- ------- -- Network results Surgery 021 ALD KAY ZHENG 11/[address] [place] [address] Danilo [facility])(W arrior Op Med Cln Tm A Ad) [address] [place] [address] [place] [facility])(War rior Op Med Cln Tm A Ad) TELE CONSULT [id number] 6 Notes Entered by: RONDA AVALOS 28 Nov 2020 1140 ------- ------- ------- ------- -- Network Results LABORAT OR 1 KAY ZHENG 11/[address] [place] [address] [place])(W arrior Op Med Cln Tm A Ad) [address] [place] [address] Dan[place] [facility])(Fam kristen Med Tm B Non-AD BCC) TELE CONSULT [id number] 0 Notes Entered by: MARITO HEBERT 29 Nov 2020 1218 ------- ------- ------- ------- -- Network Results Summary of Care 11/26/20 KAY ZHENG 11/[address] [place] [address])(F amily Med Tm B Non-AD BCC) [address] [place] [address])(Fam kristen Med Tm B Non-AD BCC) TELE CONSULT [id number] 3 Notes Entered by: Kristi RIVERS 14 Dec 2020 1016 ------- ------- ------- ------- -- Network results Surgery 021 KAY BERMUDEZ 12/[address] [place] [address])(F amily Med Tm B Non-AD BCC) [address] [place] [address])(Fam kristen Med Tm B Non-AD BCC) TELE CONSULT [id number] 0 Notes Entered by: Kristi RIVERS 27 Dec 2020 0906 ------- ------- ------- ------- -- Network results Surgery 021 GLENN MARINO 12/[address] [place] [address])(F amily Med Tm B Non-AD BCC) [address] [place] [address])(Fam kristen Med Tm B Non-AD BCC) TELE CONSULT [id number] 5 Notes Entered by: Kristi RIVERS 30 Jan 2021 1159 ------- ------- ------- ------- -- Network results Surgery 021 KAY BERMUDEZ 01/[address] [place] [address])(F amily Med Tm B Non-AD BCC) [address] [place] [address])(Fam kristen Med Tm B Non-AD BCC) TELE CONSULT [id number] 3 Notes Entered by: MAMADOU GRIMM 20 Mar 2021 1402 ------- ------- ------- ------- -- MARGARITO Secure Message - Bhaskar Rosario (Dolores SAMPSON CHAMORRO 03/20 Other Not Elsewhere Classified [address] [place], [place] [address]B [place])(F amily Med Tm B Non-AD BCC) [address] [place] [address] [facility] ([facility])(Induction Machine Setter ecology) OUTPATIENT [id number] 5 [facility] RONN ALATORRE 03/28 Released w/o Limitations [address] [place] [address] [employer] ([facility])(G ynecolo gy) [address] [place] [address] [facility] [employer] ([facility])(Fam kristen Med Tm B Non-AD BCC) OUTPATIENT [id number] I am having acid reflux issues and would like to get seen for it MESFIN LONG 03/28 Released w/o Limitations [address] [place] [address] [employer] ([facility])(F amily Med Tm B Non-AD BCC) [address] [place] [address] Group [place] [place])(Induction Machine Setter ecology) TELE CONSULT [id number] 3 Notes Entered by: STEPHEN ALATORRE 03 Apr 2021 1133 ------- ------- ------- ------- -- MIKAEL Cedillo 04/03 Other Not Elsewhere Classified [address] [place] [address] Group [place] [employer] ([facility])(G ynecolo gy) [address] [place] [address] [facility] [employer] [place])(Fam kristen Med Tm B Non-AD BCC) TELE CONSULT [id number] 1 Notes Entered by: Kristi RIVERS 02 May 2021 0942 ------- ------- ------- ------- -- Network results Dermato logy 021 MESFIN WALLACE 05/[address] [place] [address] [employer] ([facility])(F amily Med Tm B Non-AD BCC) [address] [place] [address] [employer] ([facility])(Fam kristen Med Tm B Non-AD BCC) TELE CONSULT [id number] 5 Notes Entered by: DENISE SCHULZ 09 May 2021 0819 ------- ------- ------- ------- -- Network results Physica l Therapy 021 KAY VOSS 05/[address] [place] [address] [facility])(F amily Med Tm B Non-AD BCC) [address] [place] [address] Group [place])(Fam kristen Med Tm B Non-AD BCC) TELE CONSULT [id number] 9 Notes Entered by: HAZEL STODDARD 17 May 2021 0642 ------- ------- ------- ------- -- MARGARITO Secure Messagi ng Referra l Request HAZEL STODDARD 05/17 Released to [employer] [address] [place] [address] Group [place] [facility])(F amily Med Tm B Non-AD BCC) [address] [place] [address] [facility])(Fam kristen Med Tm B Non-AD BCC) TELE CONSULT [id number] 7 Notes Entered by: HAZEL STODDARD 27 Jun 2021 0907 ------- ------- ------- ------- -- MARGARITO Secure Messagi ng Prescri ption - Renewal Request HAZEL STODDARD 06/27 Released to [employer] [address] [place] [address] [place] [facility])(F amily Med Tm B Non-AD BCC) [address] [place] [address] [place] [facility])(Fam kristen Med Tm B Non-AD BCC) OUTPATIENT [id number] 5 FACE TO FACE: Medicat ion refills MESFIN LONG 07/12 Released w/o Limitations [address] [place] [address] [place] [facility])(F amily Med Tm B Non-AD BCC) [address] [place] [address] [place])(Ob/ Induction Machine Setter) TELE CONSULT [id number] 0 Notes Entered by: Sylvain NOE 15 Jul 2021 1125 ------- ------- ------- ------- -- Network results PT 07/15/21 LUCILLE BA 07/15 Other Not Elsewhere Classified [facility] ([facility])(O b/Induction Machine Setter) [address] [place] [address] [place])(Fam kristen Med Tm B Non-AD BCC) TELE CONSULT [id number] 6 Notes Entered by: MESFIN LONG 03 Aug 2021 1635 ------- ------- ------- ------- -- Rad results MESFIN LONG 08/[address] [place] [address])(F amily Med Tm B Non-AD BCC) [address] [place] [address])(Sco tt [facility] FAMRES Tm Blue) TELE CONSULT [id number] 5 Notes Entered by: HAZEL COSTA 10 Mar 2022 1012 ------- ------- ------- ------- -- Zeke Escobar ption Request /Dr. Laws/ JUAN WASHINGTON 03/10 Released to Self [employer] [address] [place] [address])(S [facility] FAMRES Tm Blue) [address] [place] [address])(Sco tt [facility] FAMRES Tm Blue) TELE CONSULT [id number] Notes Entered by: JOSEF SANDY 08 May 2022 0749 ------- ------- ------- ------- -- COLT Longoria 05/08 Released to Self Care [address] [place] [address])(S [facility] FAMRES Tm Blue) [address] [place] [address])(Sco tt [facility] FAMRES Tm Blue) OUTPATIENT [id number] F2F - Abdomin al pain, medicat ions, HERBIE COLVIN 05/08 Released w/o Limitations [address] [place] [address])(S cott [facility] FAMRES Tm Blue) [address] [place] [address])(Sco tt [facility] Fam Res Tm Green) TELE CONSULT [id number] 5 Notes Entered by: Sylvain COLVIN 26 May 2022 0815 ------- ------- ------- ------- -- Lab results HERBIE COLVIN 05/26 Referred for Appointment [address] [place] [address] [place])(S cott [facility] Fam Res Tm Green) [address] [place] [address] [facility] ([facility])(Sco tt [facility] FAMRES Tm Blue) TELE CONSULT [id number] Notes Entered by: JENNIFER CORREA 12 Sep 2022 0908 ------- ------- ------- ------- -- Network Results - ED CC: Cate 09/03/20 CANDY ESCALONA 09/12 Released to Self Care [address] [place] [address] aDnilo [facility] [place])(S cott [facility] FAMRES Tm Blue) [address] [place] [address] Danilo [facility] [place])(Sco tt [facility] FAMRES Tm Blue) TELE CONSULT [id number] 6 Notes Entered by: ROHIT GARBER 16 Sep 2022 1501 ------- ------- ------- ------- -- Network Results - Dischar ge From ED 09/03/22 CANDY ESCALONA 09/16 Released to Self Care [address] [place] [address] [place] DESAI [place])(S cott [facility] FAMRES Tm Blue) [address] [place] [address] Danilo [facility] [place])(Sco tt [facility] FAMRES Tm Blue) TELE CONSULT [id number] Notes Entered by: SOBEIDA WILDER 16 Mar 2023 1400 ------- ------- ------- ------- -- Rx Chelita /Zeke /EDI Solares 03/16 Referred for Appointment [address] [place] [address] Dan[facility] [place])(S cott [facility] FAMRES Tm Blue) [address] [place] [address] Danilo [facility] [place])(Sco tt [facility] FAMRES Tm Blue) OUTPATIENT [id number] f2f annual, rx f/u HERBIE COLVIN 03/18 Released w/o Limitations [address] [place] [address] [facility] ([facility])(S cott [facility] FAMRES Tm Blue) [facility] Outpatient Encounter [id number] 04/30 [facility] 6130C-Af- C-375Th Medgrp-Sc mykel Between Visit [id number] 04/05 Discharge Disposition: Home or Self Care 6130C-A f-C-375 Th Medgrp- Danilo 0055A-375 th MEDGRP-Sc mykel Outpatient [id number] TAMI HUFFMAN 04/10 Discharge Disposition: Home or Self Care 0055A-3 75th MEDGRP- [facility] 0055A-375 th MED[facility]-Sc mykel Outpatient [id number] TAMI SON 04/21 Discharge Disposition: Home or Self Care 0055A-3 75th [facility] 6130C-Af- C-375Th Medgrp-Sc mykel Between Visit [id number] 05/10 Discharge Disposition: Home or Self Care 6130C-A f-C-375 Th Medgrp- [facility] 6130C-Af- C-375Th Medgrp-Sc mykel Between Visit [id number] 05/23 Discharge Disposition: Home or Self Care 6130C-A f-C-375 Th Medgrp- [facility] Procedures Combined list of: 1) Procedures from Department of Veterans Affairs facilities going back up to thelast 18 months, not all [place] non-surgical procedures are included; 2) All procedures from the Department of Defense facilities. Procedure Procedure Type Code Date Perfomer Casimiro [facility] e kidney stone lithotripsy 019 0055C-37 5th MEDGRP-S abbi kidney stone lithotripsy 017 0055C-37 5th [facility] Urinary sling replacement 013 0055C-37 5th MEDGRP-S babi PRK 009 0055C-37 5th [facility]-S [facility]bi urninary sling 008 6130C-Af -C-375 Medgrp-S [facility]bi kidney stones lithotripsy 004 6130C-Af -C-375Th Medgr[facility]bi ankle fracture plate implant 2x 002 6130C-Af -C-375 Medgrp-S abbi Tonsillectomy, primary or secondary; age 12 or over Tonsillectomy, primary or secondary; age 12 or over [id number] 6130C-Af -C-375Th [facility] ectopic 990 6130C-Af -C-375Th [facility] wisdom teeth removed 988 1988 6130C-Af -C-375Th [facility] Colorectal cancer screening; colonoscopy on individual not meeting criteria for high risk 0055C-37 5th [facility] Non-Physician Phone Call To Patient/Provider Brief (5-10min) Non-Physician Phone Call To Patient/Provider Brief (5-10min) [phone] SANDI ALDRIDGE [employer] Non-Physician Phone Call To Patient/Provider Brief (5-10min) Non-Physician Phone Call To Patient/Provider Brief (5-10min) [phone] SANDI ALDRIDGE [employer] Non-Physician Phone Call To Patient/Provider Brief (5-10min) Non-Physician Phone Call To Patient/Provider Brief (5-10min) [phone] PAULO HARDY [employer] Non-Physician Phone Call To Patient/Provider Brief (5-10min) Non-Physician Phone Call To Patient/Provider Brief (5-10min) [phone] PAULO HARDY [employer] Case Management, each 15 minutes 017 CHUY BURGOS [employer] Case Management, each 15 minutes 017 CHUY BURGOS [employer] Non-Physician Phone Call To Patient/Provider Brief (5-10min) Non-Physician Phone Call To Patient/Provider Brief (5-10min) [id number] PAULO HARDY [employer] Non-Physician Phone Call To Patient/Provider Brief (5-10min) Non-Physician Phone Call To Patient/Provider Brief (5-10min) [id number] [phone] PAULO HARDY [employer] Non-Physician Phone Call To Patient/Provider Brief (5-10min) Non-Physician Phone Call To Patient/Provider Brief (5-10min) [phone] ALTON HARDY [employer] Non-Physician Phone Call To Patient/Provider Brief (5-10min) Non-Physician Phone Call To Patient/Provider Brief (5-10min) [phone] WILLI MARTINEZ [employer] Non-Physician Phone Call To Patient/Provider Brief (5-10min) Non-Physician Phone Call To Patient/Provider Brief (5-10min) [phone] REVA COOK [employer] Non-Physician Phone Call To Patient/Provider Brief (5-10min) Non-Physician Phone Call To Patient/Provider Brief (5-10min) [phone] JAMEL EARLY [employer] Non-Physician Phone Call To Pt/Provider Intermed (11-20 min) Non-Physician Phone Call To Pt/Provider Intermed (11-20 min) [phone] SHARMAINE MAYES [employer] Colorectal cancer screening; colonoscopy on individual not meeting criteria for high risk 014 TRAVON LAWS [employer] Non-Physician Phone Call To Pt/Provider Lengthy (21-30 min) Non-Physician Phone Call To Pt/Provider Lengthy (21-30 min) [phone] WILLI MARTINEZ [employer] Ophthalmological New Patient Start Comprehensive Care Ophthalmological New Patient Start Comprehensive Care [phone] MAHOGANY RAMIRES [employer] Determination Of Refractive State Determination Of Refractive State [id number] MAHOGANY RAMIRES [employer] Endometrial Biopsy By Suction Endometrial Biopsy By Suction [phone] JOSE HENNING [employer] Non-Physician Phone Call To Patient/Provider Brief (5-10min) Non-Physician Phone Call To Patient/Provider Brief (5-10min) [phone] ANGUS EUGENE [employer] Test Test [id number] 012 JOSE HENNING [employer] Medication Management By Pharmacist Each Additional 15 Min Medication Management By Pharmacist Each Additional 15 Min [phone] TJ ROSA [employer] Med Management By Pharmacist Initial 15 Min Estab Patient Med Management By Pharmacist Initial 15 Min Estab Patient [id number] [phone] TJ ROSA [employer] Med Management By Pharmacist Initial 15 Min Estab Patient Med Management By Pharmacist Initial 15 Min Estab Patient [phone] SAMPSON NOE [employer] Medication Management By Pharmacist Each Additional 15 Min Medication Management By Pharmacist Each Additional 15 Min [phone] PRAVEENA TJ Tereza [employer] Med Management By Pharmacist Initial 15 Min Estab Patient Med Management By Pharmacist Initial 15 Min Estab Patient [phone] PRAVEENA TJ Tereza [employer] Medication Management By Pharmacist Each Additional 15 Min Medication Management By Pharmacist Each Additional 15 Min [phone] PRAVEENA TJ Starks [employer] Med Management By Pharmacist Initial 15 Min Estab Patient Med Management By Pharmacist Initial 15 Min Estab Patient [phone] TJ ROSA [employer] Smoking ce ation cla es, non-physician provider, per se ion 011 PRAVEENA TJ Starks [employer] Medication Management By Pharmacist Each Additional 15 Min Medication Management By Pharmacist Each Additional 15 Min [id number] [phone] PRAVEENA TJ Starks [employer] Med Management By Pharmacist Initial 15 Min New Patient Med Management By Pharmacist Initial 15 Min New Patient [id number] PRAVEENA TJ Tereza [facility] Non-Physician Phone Call To Patient/Provider Brief (5-10min) Non-Physician Phone Call To Patient/Provider Brief (5-10min) [phone] CELESTINE MENDOZA [facility] Non-Physician Phone Call To Patient/Provider Brief (5-10min) Non-Physician Phone Call To Patient/Provider Brief (5-10min) [id number] ANGUS EUGENE [facility] Ophthalmological Prior Patient Start Intermediate Level Care Ophthalmological Prior Patient Start Intermediate Level Care [id number] 010 JACK AVITIA [facility] Determination Of Refractive State Determination Of Refractive State 73767 010 JACK AVITIA [facility] Osteopathic Manip Treatment (OMT) 1-2 Body Regions Involved Osteopathic Manip Treatment (OMT) 1-2 Body Regions Involved [id number] STACY PAZ [facility] Acupunct One Or More [place] W/O Stimulation Initial 15 Min Acupunct One Or More [place] W/O Stimulation Initial 15 Min [id number] JORDAN LANGE [facility] Screening papanicolaou smear; obtaining, preparing and conveyance of cervical or vaginal smear to laboratory 010 SHEREEN NOVA [facility] Determination Of Refractive State Determination Of Refractive State 32055 010 MARC VICTOR Ophthalmological Prior Patient Start Intermediate Level Care Ophthalmological Prior Patient Start Intermediate Level Care [id number] 010 MARC VICTOR Determination Of Refractive State Determination Of Refractive State 79961 009 MARC VICTOR Ophthalmological Prior Patient Start Intermediate Level Care Ophthalmological Prior Patient Start Intermediate Level Care 54032 009 MARC VICTOR Ophthalmological Prior Patient Start Intermediate Level Care Ophthalmological Prior Patient Start Intermediate Level Care 85953 009 MARC VICTOR Determination Of Refractive State Determination Of Refractive State 60225 009 NISREEN ARIZA Ophthalmological Prior Patient Start Comprehensive Care Ophthalmological Prior Patient Start Comprehensive Care 31350 009 NISREEN ARIZA Determination Of Refractive State Determination Of Refractive State 66028 009 RINA ALEXANDER Ophthalmological Prior Patient Start Intermediate Level Care Ophthalmological Prior Patient Start Intermediate Level Care 12143 009 ROLESRINA Postoperative Visit, Without Charge Postoperative Visit, Without Charge [id number] 009 BANG CHATMAN Photorefractive keratectomy (PRK) 009 BANG CHATMAN Ophthalmological Prior Patient Start Intermediate Level Care Ophthalmological Prior Patient Start Intermediate Level Care [address].-Supervised Group Educational Services 009 BANG CHATMAN Determination Of Refractive State Determination Of Refractive State 92185 009 ROLESRINA Corneal Pachymetry Corneal Pachymetry 77626 23/12 009 ROLESRINA External Ocular Photography External Ocular Photography 99355 009 ROLESRINA Diagnostic Imaging Ocular Coherence Topography 009 ROLESRINA Computerized Corneal Topography Computerized Corneal Topography 64553 009 ROLESRINA Ophthalmological New Patient Start Comprehensive Care Ophthalmological New Patient Start Comprehensive Care 98548 009 ROLESRINA Determination Of Refractive State Determination Of Refractive State 41511 009 MARC VICTOR Corneal Pachymetry, Bilateral With Interpret And Report Corneal Pachymetry, Bilateral With Interpret And Report 35480 009 MARC VICTOR [facility] Computerized Corneal Topography Computerized Corneal Topography 15978 009 MARC VICTOR [facility] Ophthalmological Prior Patient Start Comprehensive Care Ophthalmological Prior Patient Start Comprehensive Care 31804 009 MARC VICTOR [facility] Determination Of Refractive State Determination Of Refractive State 01964 009 MARC VICTOR [facility] Ophthalmological New Patient Start Comprehensive Care Ophthalmological New Patient Start Comprehensive Care 67695 009 MARC VICTOR [facility] Oral Surgery Tooth Extraction Oral Surgery Tooth Extraction 71299 008 ISAI PASCUAL 1984-wisdom teeth removed [facility] Laparoscopy With Excision Of Ectopic Laparoscopy With Excision Of Ectopic 10072 ISAI PASCUAL 1989 DoD Treatment Of The Ankle Treatment Of The Ankle 79116 008 ISAI PASCUAL Pt reports ankle surgery x2 in 2002 [facility] Tonsillectomy Tonsillectomy 54898 008 ISAI PASCUAL 1996 Abdominal / Peritoneal Surgery Abdominal / Peritoneal Surgery 59362 008 ISAI PASCUAL [facility] [employer] Fitting Monofocals (Not For Aphakia) [employer] [facility] Fitting Monofocals (Not For Aphakia) 46707 008 PATRICIA CATES [facility] Determination Of Refractive State Determination Of Refractive State 94685 008 PATRICIA CATES [facility] Ophthalmological Prior Patient Start Comprehensive Care Ophthalmological Prior Patient Start Comprehensive Care 32493 008 PATRICIA CATES [facility] Whole Body Integumentary Photography, Physician Request Whole Body Integumentary Photography, Physician Request [phone] ZULLY RAM [facility] Gynecologic Surgery Gynecologic Surgery 73283 0 008 ISAI PSACUAL urine leakage surgery [facility] Whole Body Integumentary Photography, Physician Request Whole Body Integumentary Photography, Physician Request 56330 008 ZULLY RAM [facility] Whole Body Integumentary Photography, Physician Request Whole Body Integumentary Photography, Physician Request [id number] 007 ZULLY RAM II, Dr. Supervised Injection Intramuscular Supervised Injection Intramuscular 42940 007 GLENN CARRASCO [facility] Screening papanicolaou smear; obtaining, preparing and conveyance of cervical or vaginal smear to laboratory 007 GLENN CARRASCO Determination Of Refractive State Determination Of Refractive State [phone] QUISPEPRATEEK [facility] [employer] [facility] Fitting Monofocals (Not For Aphakia) [facility] Fitting Monofocals (Not For Aphakia) 73752 006 [facility] Start Comprehensive Care Ophthalmological New Patient Start Comprehensive Care 58341 006 [facility] Screening papanicolaou smear; obtaining, preparing and conveyance of cervical or vaginal smear to laboratory RAS DAVALOS [facility] Non-Physician Phone Call To Patient/Provider Brief (5-10min) Non-Physician Phone Call To Patient/Provider Brief (5-10min) [id number] HAZEL STODDARD DoD Waiver services; not otherwise specified (NOS) SHARMAINE SARMIENTO [facility] POSTOPERATIVE FOLLOW-UP VISIT, NORMALLY INCLUDED IN THE SURGICAL PACKAGE, INDICATE THAT EVALUATION & MANAGEMENT SERVICE WAS PERFORMED DURING A POSTOPERATIVE PERIOD REASON RELATED ORIGINAL PROCEDURE 009 DoD POSTOPERATIVE FOLLOW-UP VISIT, NORMALLY INCLUDED IN THE SURGICAL PACKAGE, INDICATE THAT EVALUATION & MANAGEMENT SERVICE WAS PERFORMED DURING A POSTOPERATIVE PERIOD REASON RELATED ORIGINAL PROCEDURE 009 DoD PHOTOREFRACTIVE KERATECTOMY (PRK) 009 [facility] PHYS/OTH QUALIFIED HEALTH STREET LIGHT SERVICER HELPER QUALIFIED,EDUCATION, TRAIN,LICENSURE/REGU LATION (WHEN APPLICABLE) EDUC SER RENDERED TO PATS IN A GRP SETTING (EG,,OBESITY ,OR DIABETIC INSTRUCT) 009 DoD DETERMINATION OF REFRACTIVE STATE 009 [facility] OTHER REPAIR OF URINARY STRESS INCONTINENCE 008 DoD POSTOPERATIVE FOLLOW-UP VISIT, NORMALLY INCLUDED IN THE SURGICAL PACKAGE, INDICATE THAT EVALUATION & MANAGEMENT SERVICE WAS PERFORMED DURING A POSTOPERATIVE PERIOD REASON RELATED ORIGINAL PROCEDURE 008 DoD SLING OPERATION FOR STRESS INCONTINENCE (EG, FASCIA OR SYNTHETIC) 008 DoD CYSTOURETHROSCOPY (SEPARATE PROCEDURE) 008 DoD FITTING OF SPECTACLES, EXCEPT FOR APHAKIA; MONOFOCAL 008 [facility] WHOLE BODY INTEGUMENTARY PHOTOGRAPHY, FOR MONITORING OF HIGH RISK PATIENTS WITH DYSPLASTIC NEVUS SYNDROME OR A HISTORY OF DYSPLASTIC NEVI, OR PATIENTS WITH A PERSONAL OR FAMILIAL HISTORY OF MELANOMA 008 [facility] WHOLE BODY INTEGUMENTARY PHOTOGRAPHY, FOR MONITORING OF HIGH RISK PATIENTS WITH DYSPLASTIC NEVUS SYNDROME OR A HISTORY OF DYSPLASTIC NEVI, OR PATIENTS WITH A PERSONAL OR FAMILIAL HISTORY OF MELANOMA 008 [facility] SIZE REDUCTION PLASTIC OPERATION 008 [facility] REPAIR OF OTHER HERNIA OF ANTERIOR ABDOMINAL WALL WITH GRAFT OR PROSTHESIS 008 DoD REPAIR OF UMBILICAL HERNIA WITH GRAFT OR PROSTHESIS 008 DoD WHOLE BODY INTEGUMENTARY PHOTOGRAPHY, FOR MONITORING OF HIGH RISK PATIENTS WITH DYSPLASTIC NEVUS SYNDROME OR A HISTORY OF DYSPLASTIC NEVI, OR PATIENTS WITH A PERSONAL OR FAMILIAL HISTORY OF MELANOMA 007 [facility] THERAPEUTIC, PROPHYLACTIC OR DIAGNOSTIC INJECTION (SPECIFY SUBSTANCE OR DRUG); SUBCUTANEOUS OR INTRAMUSCULAR 007 [facility] SCREENING PAPANICOLAOU SMEAR; OBTAINING, PREPARING AND CONVEYANCE OF CERVICAL OR VAGINAL SMEAR TO LABORATORY 007 DoD FITTING OF SPECTACLES, EXCEPT FOR APHAKIA; MONOFOCAL 006 DoD INJECTION, KETOROLAC TROMETHAMINE, PER 15 MG 006 DoD FITTING OF SPECTACLES, EXCEPT FOR APHAKIA; MONOFOCAL 005 DoD INJECTION, KETOROLAC TROMETHAMINE, PER 15 MG 004 [facility] COLLECTION OF VENOUS BLOOD BY VENIPUNCTURE 004 [facility] SCREENING PAPANICOLAOU SMEAR; OBTAINING, PREPARING AND CONVEYANCE OF CERVICAL OR VAGINAL SMEAR TO LABORATORY 004 [facility] PHYSICAL THERAPY RE-EVALUATION 003 [facility] MANUAL THERAPY TECHNIQUES (EG, MOBILIZATION/ MANIPULATION, MANUAL LYMPHATIC DRAINAGE, MANUAL TRACTION), 1 OR MORE REGIONS, EACH 15 MINUTES 003 [facility] DETERMINATION OF REFRACTIVE STATE 003 DoD THERAPEUTIC PROCEDURE, 1 OR MORE AREAS, EACH 15 MINUTES; THERAPEUTIC EXERCISES TO DEVELOP STRENGTH AND ENDURANCE, RANGE OF MOTION AND FLEXIBILITY 003 DoD THERAPEUTIC PROCEDURE, 1 OR MORE AREAS, EACH 15 MINUTES; THERAPEUTIC EXERCISES TO DEVELOP STRENGTH AND ENDURANCE, RANGE OF MOTION AND FLEXIBILITY 002 [facility] THERAPEUTIC ACTIVITIES, DIRECT (ONE-ON-ONE) PATIENT CONTACT (USE OF DYNAMIC ACTIVITIES TO IMPROVE FUNCTIONAL PERFORMANCE), EACH 15 MINUTES [facility] THERAPEUTIC ACTIVITIES, DIRECT (ONE-ON-ONE) PATIENT CONTACT (USE OF DYNAMIC ACTIVITIES TO IMPROVE FUNCTIONAL PERFORMANCE), EACH 15 MINUTES [facility] THERAPEUTIC ACTIVITIES, DIRECT (ONE-ON-ONE) PATIENT CONTACT (USE OF DYNAMIC ACTIVITIES TO IMPROVE FUNCTIONAL PERFORMANCE), EACH 15 MINUTES [facility] THERAPEUTIC ACTIVITIES, DIRECT (ONE-ON-ONE) PATIENT CONTACT (USE OF DYNAMIC ACTIVITIES TO IMPROVE FUNCTIONAL PERFORMANCE), EACH 15 MINUTES [facility] THERAPEUTIC PROCEDURE,1 OR MORE AREAS,EACH 15 MINUTES;NEUROMUSCULA R REEDUCATION OF MOVEMENT,BALANCE,ROLLED OATS MILL OPERATOR RDINATION,KINESTHETI C SENSE,POSTURE,AND/OR PROPRIOCEPTION FOR SITTING AND/OR STANDING ACTIVITIES [facility] THERAPEUTIC ACTIVITIES, DIRECT (ONE-ON-ONE) PATIENT CONTACT (USE OF DYNAMIC ACTIVITIES TO IMPROVE FUNCTIONAL PERFORMANCE), EACH 15 MINUTES [facility] THERAPEUTIC PROCEDURE,1 OR MORE AREAS,EACH 15 MINUTES;NEUROMUSCULA R REEDUCATION OF MOVEMENT,BALANCE,ROLLED OATS MILL OPERATOR RDINATION,KINESTHETI C SENSE,POSTURE,AND/OR PROPRIOCEPTION FOR SITTING AND/OR STANDING ACTIVITIES [facility] THERAPEUTIC ACTIVITIES, DIRECT (ONE-ON-ONE) PATIENT CONTACT (USE OF DYNAMIC ACTIVITIES TO IMPROVE FUNCTIONAL PERFORMANCE), EACH 15 MINUTES [facility] THERAPEUTIC PROCEDURE, 1 OR MORE AREAS, EACH 15 MINUTES; THERAPEUTIC EXERCISES TO DEVELOP STRENGTH AND ENDURANCE, RANGE OF MOTION AND FLEXIBILITY [facility] PHYSICAL THERAPY EVALUATION [facility] OPEN TREATMENT OF TRIMALLEOLAR ANKLE FRACTURE, INCLUDES INTERNAL FIXATION, WHEN PERFORMED, MEDIAL AND/OR LATERAL MALLEOLUS; WITHOUT FIXATION OF POSTERIOR LIP [facility] TELE ASSESS & MGT SRV PROV QUAL [...] OTHERWISE SPECIFIED (NOS) DoD QUALIFIED NONPHYSICIAN HEALTH STRE[facility] LIGHT SERVICER HELPER ONLINE DIGITAL ASSESSMENT AND MANAGEMENT, FOR AN ESTABLISHED PATIENT, FOR UP TO 7 DAYS, CUMULATIVE TIME DURING THE 7 DAYS; 11-20 MINUTES DoD QUALIFIED NONPHYSICIAN HEALTH STREET LIGHT SERVICER HELPER ONLINE DIGITAL ASSESSMENT AND MANAGEMENT, FOR AN [...] 24 HR/SOON APT;5-10 MIN MED DIS DoD SCREENING PAPANICOLAOU SMEAR; OBTAINING, PREPARING AND [...] 24H/SOON APT; 21-30 MIN MED DIS 014 DoD OPHTHALMOLOGICAL SERVICES: MEDICAL EXAMINATION AND EVALUATION WITH INITIATION OF DIAGNOSTIC AND TREATMENT PROGRAM; COMPREHENSIVE, NEW PATIENT, 1 OR MORE VISITS 013 DoD TELE ASSESS & MGT SRV PROV QUAL NONPHYS HLTH CARE PRO TO EST PAT,PARENT,GUARD NOT ORIG REL ASSESS & MGT SRV PROV W/IN PREV 7 DAYS NOR LEAD ASSESS & MGT SRV/PX W/IN NXT 24 HR/SOON APT;5-10 MIN MED DIS [facility] URINE TEST, BY VISUAL COLOR COMPARISON METHODS [facility] MEDICATION THERAPY MGT SERVICE(S) PROVIDED,A PHARMACIST,INDIV,FAC E-TO-FACE W PATIENT,WITH ASSESS & INTERVENE IF PROVIDED;EA ADDITION 15 MINUTES (LIST SEPARATELY IN ADDITION TO CODE FOR PRIM SERVICE) [facility] MEDICATION THERAPY MANAGEMENT SERVICE(S) PROVIDED BY A PHARMACIST, INDIVIDUAL, [id number] WITH PATIENT, WITH ASSESSMENT AND INTERVENTION IF PROVIDED; INITIAL 15 MINUTES, ESTABLISHED PATIENT [facility] MEDICATION THERAPY MGT SERVICE(S) PROVIDED,A PHARMACIST,INDIV,FAC E-TO-FACE W PATIENT,WITH ASSESS & INTERVENE IF PROVIDED;EA ADDITION 15 MINUTES (LIST SEPARATELY IN ADDITION TO CODE FOR PRIM SERVICE) [facility] MEDICATION THERAPY MGT SERVICE(S) PROVIDED,A PHARMACIST,INDIV,FAC E-TO-FACE W PATIENT,WITH ASSESS & INTERVENE IF PROVIDED;EA ADDITION 15 MINUTES (LIST SEPARATELY IN ADDITION TO CODE FOR PRIM SERVICE) [facility] SMOKING CESSATION CLASSES, NON-PHYSICIAN PROVIDER, PER SESSION [facility] TELE ASSESS & MGT SRV PROV QUAL NONPHYS HLTH CARE PRO TO EST PAT,PARENT,GUARD NOT ORIG REL ASSESS & MGT SRV PROV W/IN PREV 7 DAYS NOR LEAD ASSESS & MGT SRV/PX W/IN NXT 24 HR/SOON APT;5-10 MIN MED DIS [facility] TELE ASSESS & MGT SRV PROV QUAL NONPHYS HLTH CARE PRO TO EST PAT,PARENT,GUARD NOT ORIG REL ASSESS & MGT SRV PROV W/IN PREV 7 DAYS NOR LEAD ASSESS & MGT SRV/PX W/IN NXT 24 HR/SOON APT;5-10 MIN MED DIS [facility] DETERMINATION OF REFRACTIVE STATE [facility] ACUPUNCTURE, 1 OR MORE NEEDLES; WITHOUT ELECTRICAL STIMULATION, INITIAL 15 MINUTES OF PERSONAL ONE-ON-ONE CONTACT WITH THE PATIENT [facility] SCREENING PAPANICOLAOU SMEAR; OBTAINING, PREPARING AND CONVEYANCE OF CERVICAL OR VAGINAL SMEAR TO LABORATORY 010 DoD DETERMINATION OF REFRACTIVE STATE 010 DoD DETERMINATION OF REFRACTIVE STATE 009 [facility] OPHTHALMOLOGICAL SERVICES: MEDICAL EXAMINATION AND EVALUATION, WITH INITIATION OR CONTINUATION OF DIAGNOSTIC AND TREATMENT PROGRAM; INTERMEDIATE, ESTABLISHED PATIENT 009 DoD DETERMINATION OF REFRACTIVE STATE 009 [facility] OPHTHALMIC ULTRASOUND, ECHOGRAPHY, DIAGNOSTIC; CORNEAL PACHYMETRY, UNILATERAL OR BILATERAL (DETERMINATION OF CORNEAL THICKNESS) 009 DoD DETERMINATION OF REFRACTIVE STATE 009 DoD INDIVIDUAL PSYCHOTHER, INTERACT, PLAY EQUIP, PHYS DEVICES, GLAZE SUPERVISOR/OTH MECH OF NON-VERBAL COMM,IN AN INPAT HOSP, PART HOSP/RESIDENT CARE, APPROX 20-30 MIN [id number] W PAT; W MED E&M SER 001 DoD UNLISTED PROCEDURE, BREAST 001 [facility] OPHTHALMOLOGICAL SERVICES: MEDICAL EXAMINATION AND EVALUATION, WITH INITIATION OR CONTINUATION OF DIAGNOSTIC AND TREATMENT PROGRAM; INTERMEDIATE, ESTABLISHED PATIENT 001 DoD OTHER ARTIFICIAL RUPTURE OF MEMBRANES 995 [facility] MEDICAL INDUCTION OF LABOR 995 [facility] EKG (SCALP) 995 [facility] REPAIR OF OTHER CURRENT OBSTETRIC LACERATION 995 DoD MANUAL REMOVAL OF RETAINED PLACENTA 995 DoD REPAIR OF CURRENT OBSTETRIC LACERATION OF CERVIX 995 DoD OTHER DIAGNOSTIC PROCEDURES ON FETUS AND AMNION 995 [facility] CYSTOURETHROSCOPY, WITH REMOVAL OF FOREIGN BODY, CALCULUS, OR URETERAL STENT FROM URETHRA OR BLADDER (SEPARATE PROCEDURE); SIMPLE 004 DoD RINGERS LACTATE INFUSION, UP TO 1000 CC 004 DoD EDUCATIONAL SUPPLIES, SUCH BOOKS, TAPES, AND PAMPHLETS, FOR THE PATIENT'S EDUCATION AT COST TO PHYSICIAN OR OTHER QUALIFIED HEALTH STREET LIGHT SERVICER HELPER 004 DoD LOWER GI SERIES 998 DoD INSERTION OF OTHER (NASO-)GASTRIC TUBE 998 [facility] DIAGNOSTIC ULTRASOUND OF DIGESTIVE SYSTEM 998 [facility] INTRAVENOUS PYELOGRAM 998 DoD Social History Combined list of available smoking, [...] SUSAN ROSA DO Date: 04/10/25 1. W [facility] adult General Prevention: Colon Cancer Screening: ( [...] tab(s), 0 total refill(s), Acute, 04/15/2025, Pharmacy: [facility], Urinary, complicated UTI/pyelonephritis [Not filled] [...] 90 cap(s), 2 total refill(s), Maintenance, Pharmacy: [facility] [Federal Rx: #90 last filled 04/10/25] atorvastatin(atorvastatin 40 mg oral tablet), 1 tab(s), Oral, Daily, for cholesterol, # 90 tab(s), 2 total refill(s), Maintenance, Pharmacy: [facility] [Federal Rx: #90 last filled 04/10/25] cholecalciferol(cholecalcifer ol 50 mcg (2000 intl units) oral capsule), 1 cap(s), Oral, Daily, # 90 cap(s), 3 total refill(s), Maintenance, Pharmacy: [facility] [Not filled] clobetasol topical(clobetasol 0.05% topical cream), 1 appl(s), Topical, BID, # 60 g, 1 total refill(s), Maintenance, Pharmacy: [facility] [Federal Rx: #60 last filled 04/10/25] fluticasone nasal(fluticasone 50 mcg/inh nasal spray), 100 mcg, Nostril-Both, Daily, # 48 g, 3 total refill(s), Maintenance, Pharmacy: [facility] [Federal Rx: #48 last filled 04/10/25] omeprazole(omeprazole 20 mg oral delayed release capsule), 1 cap(s), Oral, BID(AC), 30 to 60 minutes before meal, # 180 cap(s), 3 total refill(s), Maintenance, Pharmacy: [facility] [Federal Rx: #180 last filled 04/10/25] propranolol(propranolol 80 mg oral tablet), 1 tab(s), Oral, BID, # 180 tab(s), 2 total refill(s), Maintenance, Pharmacy: [facility] [Federal Rx: #180 last filled 04/10/25] Susan Rosa DO, [facility], [facility] Resident Provider Addendum by CRISTINO MONDRAGON [...] ordering provider. Cristino Mondragon MD Extracted from:Title: [facility] Note Author: ALEXSANDRA DICK NP, Women's Health Date: 11/29/24 1. O steopenia R eviewed T-score and Frax risk percentage. Osteopenia. Discussed recommended fall prevention measures, continue with adequate daily calcium and Vitamin D. Rpt in 3 to 5 yrs, sooner if changes in risk factors. Pt v/u and agrees. 2. N icotine dependence E ncouraged smoking cessation Alexsandra Dick, [facility], [facility] Women s Health Nurse Practitioner, Board Certified [address] [place] [address] [address] [place] [address] comm: Extracted from:Title: FM- med refill Author: CANDY ESCALONA MD Date: 07/13/24 1. O ther disorders of bone density and structure I contacted the patient for medication refill - requesting Ca Carbonate 600mg and cholecalciferol 50mcg daily refilled. No concerns on the medications. Will follow at next well visit for hx of osteopenia. -Both meds refilled Maj RAZA USAF, MD Scott [facility] Family Medicine, PGY-3 Orders: calcium carbonate(calcium [...] by the ordering provider. DO Jacques Rhoades [place], Family Medicine Physician Extracted from:Title: [facility] Note Author: ALEXSANDRA DICK [...] symptoms. Pt v/u and agrees. SALVADOR Cardoza [facility] Women s Health Nurse Practitioner, Board Certified [address] [place] [address] [address] [place] [address] comm: Extracted from:Title: [facility] Note Author: ALEXSANDRA DICK NP [...] measures. 7. N icotine dependence Encouraged cessation. [facility] recommended Reviewed with patient discharge instructions. Written discharge instructions were provided to the patient. Recommended patient to follow up regularly for WWEs, s ooner as discussed above, or as needed for WH concerns, symptoms, or questions. SALVADOR Cardoza, [facility] Women s Health Nurse Practitioner, Board Certified [address] [place] [address] [address] Esteban Torres [place] [facility] [address] comm: Extracted from:Title: [facility]- UTI Author: ASIA PAOVN MD Date: 04/25/24 1. U rinary tract [...] Asia Pavon DO Family Medicine Faculty Physician [address] [place] [address], [facility] Extracted from:Title: FM [...] for fatigue if needed. Maj LUZ MARINA, USAF, MD [facility] Family Medicine, PGY-2 Orders: aspirin(aspirin 81 mg oral capsule), 1 cap(s), Oral, every 24 hr, # 90 cap(s), 2 total refill(s), Maintenance, 1 cap(s) Oral every 24 hr, Pharmacy: [facility] [Not filled] atorvastatin(atorvastatin 40 mg oral tablet), 1 tab(s), Oral, Daily, for cholesterol, # 90 tab(s), 2 total refill(s), Maintenance, 1 tab(s) Oral Daily,Instr:for cholesterol, Pharmacy: [facility] [Not filled] omeprazole(omeprazole 20 mg oral delayed release tablet), 1 tab(s), Oral, BID, before a meal, # 180 tab(s), 1 total refill(s), Maintenance, 1 tab(s) Oral BID,Instr:before a meal, Pharmacy: [facility] [Not filled] propranolol(propranolol 80 mg oral tablet), 1 tab(s), Oral, BID, # 180 tab(s), 2 total refill(s), Maintenance, 1 tab(s) Oral BID, Pharmacy: [facility] [Not filled] Addendum by DELON [...] up follow up Ordered: Albumin, Random Ur [id number] Creatinine, Urine Microalbumin Panel, Urine 6. G [...] CMP, CBC, ferritin, TSH, CANDY ESCALONA, , MD [place]ADEZ[facility] Family Medicine, PGY-2 Ordered: CBC w/ Diff Ferritin Iron and TIBC [id number] Thyroid Stimulating Hormone Addendum by TRAVIS DORSEY [...] Scheduled TestsRadiologyCT Low Dose Lung Screening 04/21/25 05/26/2025 [id number] Medgrp-[facility] Assessment and Plan Extracted from:Title : [...] pharmaceutical intervention Ordered: Referral Request 2.0 - [facility] 8. V accination given Pneumovax given in office today. See Tech's Note. Orders: aspirin(aspirin 81 mg oral capsule), 1 cap(s), Oral, every 24 hr, # 90 cap(s), 2 total refill(s), Maintenance, Pharmacy: [facility] [Federal Rx: #90 last filled 04/10/25] atorvastatin(atorvastatin 40 mg oral tablet), 1 tab(s), Oral, Daily, for cholesterol, # 90 tab(s), 2 total refill(s), Maintenance, Pharmacy: [facility] [Federal Rx: #90 last filled 04/10/25] cholecalciferol(cholecalcifer ol 50 mcg (2000 intl units) oral capsule), 1 cap(s), Oral, Daily, # 90 cap(s), 3 total refill(s), Maintenance, Pharmacy: [facility] [Not filled] clobetasol topical(clobetasol 0.05% topical cream), 1 appl(s), Topical, BID, # 60 g, 1 total refill(s), Maintenance, Pharmacy: [facility] [Federal Rx: #60 last filled 04/10/25] fluticasone nasal(fluticasone 50 mcg/inh nasal spray), 100 mcg, Nostril-Both, Daily, # 48 g, 3 total refill(s), Maintenance, Pharmacy: [facility] [Federal Rx: #48 last filled 04/10/25] omeprazole(omeprazole 20 mg oral delayed release capsule), 1 cap(s), Oral, BID(AC), 30 to 60 minutes before meal, # 180 cap(s), 3 total refill(s), Maintenance, Pharmacy: [facility] [Federal Rx: #180 last filled 04/10/25] propranolol(propranolol 80 mg oral tablet), 1 tab(s), Oral, BID, # 180 tab(s), 2 total refill(s), Maintenance, Pharmacy: [facility] [Federal Rx: #180 last filled 04/10/25] Susan Rosa DO, [facility], [facility] Resident Provider Addendum by CRISTINO MONDRAGON [...] ordering provider. Cristino Mondragon MD Extracted from:Title: [facility] Note Author: ALEXSANDRA DICK NP, Women's Health Date: 11/29/24 1. O steopenia R eviewed T-score and Frax risk percentage. Osteopenia. Discussed recommended fall prevention measures, continue with adequate daily calcium and Vitamin D. Rpt in 3 to 5 yrs, sooner if changes in risk factors. Pt v/u and agrees. 2. N icotine dependence E ncouraged smoking cessation SALVADOR Cardoza, [facility] Women s Health Nurse Practitioner, Board Certified [address] [place] [address] [address] [facility] [place] [address] comm: Extracted from:Title: FM- med refill Author: CANDY ESCALONA MD Date: 07/13/24 1. O ther disorders of bone density and structure I contacted the patient for medication refill - requesting Ca Carbonate 600mg and cholecalciferol 50mcg daily refilled. No concerns on the medications. Will follow at next well visit for hx of osteopenia. -Both meds refilled Maj LUZ MARINA [facility] [place] [facility], PGY-3 Orders: calcium carbonate(calcium carbonate [...] by the ordering provider. DO Jacques Rhoades [facility], Family Medicine Physician Extracted from:Title: [place] [facility] Note Author: ALEXSANDRA DICK [...] v/u and agrees. Alexsandra Sumner. SALVADOR Dick [facility] Women s Health Nurse Practitioner, Board Certified [address] [place] [address] [address] [place] [address] comm: Extracted from:Title: [place] [facility] Note Author: ALEXSANDRA DICK NP [...] measures. 7. N icotine dependence Encouraged cessation. [facility] recommended Reviewed with patient discharge instructions. Written discharge instructions were provided to the patient. Recommended patient to follow up regularly for WWEs, s ooner as discussed above, or as needed for WH concerns, symptoms, or questions. Alexsandra Dick, [facility], [facility] Women s Health Nurse Practitioner, Board Certified [address] [place] [address] [address] [place] [address] comm: Extracted from:Title: [facility]- UTI Author: ASIA PAVON MD Date: 04/25/24 [...] Asia Pavon DO Family Medicine Faculty Physician [address] [place] [address], [facility] [place] [facility] Extracted from:Title: FM - lab f/u [...] for fatigue if needed. Maj LUZ MARINA, [facility] [employer] Family [facility], PGY-2 Orders: aspirin(aspirin 81 mg oral capsule), 1 cap(s), Oral, every 24 hr, # 90 cap(s), 2 total refill(s), Maintenance, 1 cap(s) Oral every 24 hr, Pharmacy: [facility] [Not filled] atorvastatin(atorvastatin 40 mg oral tablet), 1 tab(s), Oral, Daily, for cholesterol, # 90 tab(s), 2 total refill(s), Maintenance, 1 tab(s) Oral Daily,Instr:for cholesterol, Pharmacy: [facility] [Not filled] omeprazole(omeprazole 20 mg oral delayed release tablet), 1 tab(s), Oral, BID, before a meal, # 180 tab(s), 1 total refill(s), Maintenance, 1 tab(s) Oral BID,Instr:before a meal, Pharmacy: [facility] [Not filled] propranolol(propranolol 80 mg oral tablet), 1 tab(s), Oral, BID, # 180 tab(s), 2 total refill(s), Maintenance, 1 tab(s) Oral BID, Pharmacy: [facility] [Not filled] Addendum by DELON BAIN [...] up follow up Ordered: Albumin, Random Ur [id number] Creatinine, Urine Microalbumin Panel, Urine 6. G [...] CBC w/ Diff Ferritin Iron and TIBC [id number] Thyroid Stimulating Hormone Addendum by TRAVIS DORSEY [...] Scheduled TestsRadiologyCT Low Dose Lung Screening 04/21/25 05/26/2025 [id number] K[facility]-[place] Assessment and Plan Extracted from:Title : 60 [...] tab(s), 0 total refill(s), Acute, 04/15/2025, Pharmacy: [facility], Urinary, complicated UTI/pyelonephritis [Not filled] [...] 90 cap(s), 2 total refill(s), Maintenance, Pharmacy: [facility] [Federal Rx: #90 last filled 04/10/25] atorvastatin(atorvastatin 40 mg oral tablet), 1 tab(s), Oral, Daily, for cholesterol, # 90 tab(s), 2 total refill(s), Maintenance, Pharmacy: [facility] [Federal Rx: #90 last filled 04/10/25] cholecalciferol(cholecalcifer ol 50 mcg (2000 intl units) oral capsule), 1 cap(s), Oral, Daily, # 90 cap(s), 3 total refill(s), Maintenance, Pharmacy: [facility] [Not filled] clobetasol topical(clobetasol 0.05% topical cream), 1 appl(s), Topical, BID, # 60 g, 1 total refill(s), Maintenance, Pharmacy: [facility] [Federal Rx: #60 last filled 04/10/25] fluticasone nasal(fluticasone 50 mcg/inh nasal spray), 100 mcg, Nostril-Both, Daily, # 48 g, 3 total refill(s), Maintenance, Pharmacy: [facility] [Federal Rx: #48 last filled 04/10/25] omeprazole(omeprazole 20 mg oral delayed release capsule), 1 cap(s), Oral, BID(AC), 30 to 60 minutes before meal, # 180 cap(s), 3 total refill(s), Maintenance, Pharmacy: [facility] [Federal Rx: #180 last filled 04/10/25] propranolol(propranolol 80 mg oral tablet), 1 tab(s), Oral, BID, # 180 tab(s), 2 total refill(s), Maintenance, Pharmacy: [facility] [Federal Rx: #180 last filled 04/10/25] Susan Rosa DO, [facility], [facility] Resident Provider Addendum by CRISTINO MONDRAGON [...] ordering provider. Cristino Mondragon MD Extracted from:Title: [facility] Note Author: ALEXSANDRA DICK NP, Women's Health Date: 11/29/24 1. O steopenia R eviewed T-score and Frax risk percentage. Osteopenia. Discussed recommended fall prevention measures, continue with adequate daily calcium and Vitamin D. Rpt in 3 to 5 yrs, sooner if changes in risk factors. Pt v/u and agrees. 2. N icotine dependence E ncouraged smoking cessation Alexsandra Dick, [facility], [facility] Women s Health Nurse Practitioner, Board Certified [address] [place] [address] [facility] [address] [place] [address] comm: Extracted from:Title: FM- med refill Author: CANDY ESCALONA MD Date: 07/13/24 1. O ther disorders of bone density and structure I contacted the patient for medication refill - requesting Ca Carbonate 600mg and cholecalciferol 50mcg daily refilled. No concerns on the medications. Will follow at next well visit for hx of osteopenia. -Both meds refilled Maj RAZA [employer], MD Scott [facility] Family Medicine, PGY-3 Orders: calcium carbonate(calcium [...] by the ordering provider. DO Jacques Rhoades [place], Family Medicine Physician Extracted from:Title: [place] [facility] Note Author: ALEXSANDRA DICK [...] Women s Health Nurse Practitioner, Board Certified [address] [place] [address] [address] [employer] [address] [place] [address] comm: Extracted from:Title: [place] [facility] Note Author: ALEXSANDRA DICK NP [...] measures. 7. N icotine dependence Encouraged cessation. [facility] recommended Reviewed with patient discharge instructions. Written discharge instructions were provided to the patient. Recommended patient to follow up regularly for WWEs, s ooner as discussed above, or as needed for WH concerns, symptoms, or questions. Alexsandra Dick, [facility], [facility] Women s Health Nurse Practitioner, Board Certified [address] [place] [address] [address] [facility] [place] [address] comm: Extracted from:Title: [facility]- UTI Author: ASIA PAVON MD Date: 04/25/24 [...] Urinary, uncomplicated UTI [Not filled] Capt Asia Pavon, [facility] Medicine Faculty Physician [address] [place] [address], [facility] [place] Extracted from:Title: - lab f/u [...] for fatigue if needed. Maj LUZ MARINA, [employer], MD [place] Family Medicine, PGY-2 Orders: aspirin(aspirin 81 mg oral capsule), 1 cap(s), Oral, every 24 hr, # 90 cap(s), 2 total refill(s), Maintenance, 1 cap(s) Oral every 24 hr, Pharmacy: [facility] [Not filled] atorvastatin(atorvastatin 40 mg oral tablet), 1 tab(s), Oral, Daily, for cholesterol, # 90 tab(s), 2 total refill(s), Maintenance, 1 tab(s) Oral Daily,Instr:for cholesterol, Pharmacy: [facility] [Not filled] omeprazole(omeprazole 20 mg oral delayed release tablet), 1 tab(s), Oral, BID, before a meal, # 180 tab(s), 1 total refill(s), Maintenance, 1 tab(s) Oral BID,Instr:before a meal, Pharmacy: [facility] [Not filled] propranolol(propranolol 80 mg oral tablet), 1 tab(s), Oral, BID, # 180 tab(s), 2 total refill(s), Maintenance, 1 tab(s) Oral BID, Pharmacy: [facility] [Not filled] Addendum by DELON [...] needed, no longer than 2 weeks, Pharmacy: [facility] [Not fille 5. H TN - Hypertension On propranolol - controlled. - Maintenance Labs: RFP, ACR, A1C, Lipid Panel ordered - F/u in 2-3 weeks for work up follow up Ordered: Albumin, Random Ur [id number] Creatinine, Urine Microalbumin Panel, Urine 6. G [...] CBC w/ Diff Ferritin Iron and TIBC [id number] Thyroid Stimulating Hormone Addendum by TRAVIS DORSEY [...] Scheduled TestsRadiologyCT Low Dose Lung Screening 04/21/25 05/26/2025 Unknown Organization Functional Status Combined list of recent functional and cognitive assessments recorded at [facility] Functional Eddy Measurement (FIM) Scale: 1 = Total Assistance (Subject = 0% +), 2 = Maximal Assistance (Subject = 25% +), 3 = Moderate Assistance (Subject = 50% +), 4 = Minimal Assistance (Subject = 75% +), 5 = Supervision, 6 = Modified Eddy (Device), 7 = Complete Eddy (Timely, Safely). Assessment Date/Time Source Assessment Type Assessment Skill Assessment Score Assessment Details No data available for this section
--- NOTE | 2025-05-26 06:18 | WPDHPUPDATE1 ---
History and Physical Update Update Date/Time: 05/26/25 06:18 History and Physical has been reviewed, including an updated exam of the patient. There are NO changes in the patient's condition. Risks, benefits, and alternatives have been discussed and questions answered. Patient agrees to proceed with procedure.
[2025-05-26] MEDS: LACTATED RINGERS 1,000 ML 30 ML IV CONT (08:46)
--- NOTE | 2025-05-26 09:43 | WPDANESEPP ---
Anes - Eval Pre Procedure Procedure: Operation Date: 05/26/25 09:30 Proposed Procedures p Right Renal Extracorporeal Shock Wave Lithotripsy - Claude Zuleta MD Date/Time: 05/26/25 09:43 Pre Op Diagnosis: right renal stone Patient Data Age: 60 Gender: F Height: 1.7 m Weight: 94.4 kg Last Vital Signs Temp 97.4 F L 05/26/25 08:00 Pulse 68 05/26/25 08:00 Resp 16 05/26/25 08:00 BP 137/87 05/26/25 08:00 Pulse Ox 98 05/26/25 08:00 O2 Del Method Room Air 05/26/25 08:00 Allergies Allergy/AdvReac Type Severity Reaction Status Date / Time nitrofurantoin Allergy Intermediate Rash Verified 05/26/25 09:02 Home Medications ?Medication ?Instructions ?Recorded ?Confirmed ?Type aspirin 81 mg tablet,delayed 81 mg PO DAILY 03/01/25 05/26/25 History release atorvastatin 40 mg tablet 40 mg PO HS 03/01/25 05/26/25 History clobetasol 0.05 % topical cream 1 applic topical .bi weekly PRN 03/01/25 05/16/25 History rash cranberry 500 mg capsule 500 mg PO DAILY 03/01/25 05/26/25 History estradiol 0.01% (0.1 mg/gram) 1 appful vaginal .bi-weekly 03/01/25 05/16/25 History vaginal cream modafinil 200 mg tablet 200 mg PO DAILY 03/01/25 05/26/25 History multivitamin-ferrous 1 tablet PO DAILY 03/01/25 05/26/25 History fumarate-folic acid 18 mg-400 mcg tablet (Centrum Women) omega 6-vss-fji-fish oil 1,200 mg 1 cap PO DAILY 03/01/25 05/26/25 History (144 mg-216 mg) capsule (Fish Oil) omeprazole 20 mg capsule,delayed 20 mg PO DAILY 03/01/25 05/26/25 History release propranolol 80 mg tablet 80 mg PO DAILY 03/01/25 05/26/25 History vibegron 75 mg tablet (Gemtesa) 75 mg PO DAILY 03/01/25 05/26/25 History hydrocodone 5 mg-acetaminophen 325 1 - 2 tablet PO Q6H PRN pain #20 03/10/25 05/16/25 Rx mg tablet tabs calcium carbonate 500 mg PO DAILY 05/05/25 05/26/25 History cholecalciferol (vitamin D3) 125 250 mcg PO DAILY 05/05/25 05/26/25 History mcg (5,000 unit) tablet (Vitamin D3) Patient hx anesthesia problems: none Family hx anesthesia problems: none Results Review: All pre-operative results and documents have been reviewed as part of the pre-operative evaluation. [facility] Past Medical History Medical History Overweight (BMI 25.0-29.9) Smoker Social History Social History Years smoked: 45 Smoking status: Current every day smoker Tobacco type: cigarettes Alcohol intake: current Substance use: never Living arrangements: with family Spiritual care concerns: No Exam Day of Procedure 05/26/25 09:43 Patient weight: overweight Heart: regular rate and rhythm Lungs: clear to auscultation Airway: Mallampati scale class II Neurological: alert and oriented
[2025-05-26] MEDS: ceFAZolin 2 GM in SODIUM CHLORIDE 0.9% IV 50 ML 100 ML IVPB (09:52)
--- NOTE | 2025-05-26 10:05 | P.PNAN_ITS ---
Anes - Eval Final PreProcedure Day of Procedure 05/26/25 10:05 Patient weight: overweight Heart: regular rate and rhythm Lungs: clear to auscultation Airway: Mallampati scale class II Neurological: alert and oriented Last oral intake: >/= 8 hours ASA classification: III Emergent: no Anesthetic plan: proceed Anesthesia type and monitoring: general LMA and standard monitoring Results Review: All pre-operative results and documents have been reviewed as part of the pre- operative evaluation. Informed Consent: The patient's anesthetic plan and its attendant risks and benefits were discussed with the patient/family/POA. Questions were solicited and answers provided to the satisfaction of the patient/family/POA.
--- NOTE | 2025-05-26 10:11 | W.PM.PROC2 ---
Procedure Note - Detailed Date of Procedure 05/26/25 Pre-op Diagnosis Right renal stone Post-op Diagnosis Same Procedure Performed Right ESWL Surgeon Claude Zuleta MD Anesthesia General Description of Procedure Preoperative imaging on the morning of today's planned procedure demonstrated a persistent calcification that appears to be outside of her left kidney. This is where she had recent prior ESWL. She does clearly have a calcified stone in her right kidney measuring 7 and 8 mm. The patient was brought to the operative suite where she was placed in the supine position on the Dornier lithotripsy table. The focal point of the lithotripter was placed at a the right renal stone mentioned above. A total of 2500 shocks were delivered at a power setting of 2-4. There appeared to be good fragmentation of the stone. The patient tolerated the procedure well and was taken to the recovery room in good condition. Drains No Packing No Pathology None sent Complications No immediate complications
== END 2025-05-26 11:50 | disposition home or self-care (01) ==
PROVIDERS: Visit Provider Urology
PROC: (CPT 50590; principal; 2025-05-26 09:30)
DX: N20.0 Calculus of kidney (principal); F17.210 Nicotine dependence, cigarettes, uncomplicated
CPT/HCPCS: 50590; 74018; J0690; J2003; J2405; J2704; J3010; J7120

== ENCOUNTER 2025-08-28 15:40 | Outpatient (CLI) | payer OTHER, SELFPAY ==
--- NOTE | ~2025-08-28 | XR_ITS ---
XR abdomen/kub 1V 08/28/2025 16:10 INDICATION: Renal stones TECHNIQUE: KUB COMPARISON: None FINDINGS: Bowel gas pattern is normal. There is no evidence of free air, mass, organomegaly, ascites or obstruction. There are bilateral renal stones, largest in the lower pole of the left kidney measuring 12 mm. There are pelvic phleboliths. Bowel gas pattern nonobstructive. Bones appear intact. IMPRESSION: 1: Bilateral nephrolithiasis. Reviewed, dictated and finalized at location O. 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
== END 2025-08-28 15:41 | disposition home or self-care (01) ==
LOC: MICIMG 15:41
PROVIDERS: PCP Urology; Visit Provider Urology
DX: N20.0 Calculus of kidney (principal)
CPT/HCPCS: 74018